=== PATIENT | male | born 1960 | race Hispanic/Latino ===

== ENCOUNTER 2016-12-08 11:19 | Inpatient (IN) | payer MEDICARE, MEDICAID, OTHER ==
[2016-12-08 11:20] VITALS: BMI 25.0
--- NOTE | 2016-12-08 12:48 | C.PDOC ---
History Of Present Illness 56-year-old homeless male, presents to the emergency department [facility], with complaints of being found wandering in park. Patient states "I don't know why they brought me in." Patient reports that he was standing in the park, minding his own business. Denies any pain or new symptoms. Patient states 'I feel fine. " Notes, he has been wearing ill-fitting shoes for a while and his feet are "messed up." No other complaints. Denies HI/SI. Time Seen by Provider: 12/08/16 11:32 Chief Complaint (Nursing): Substance Abuse History Per: Patient History/Exam Limitations: no limitations Modifying Factor(s): None Severity: None Past Medical History Reviewed: Historical Data, Nursing Documentation, Vital Signs Vital Signs: Last Vital Signs Temp 97.5 F L 12/08/16 18:04 Pulse 63 12/08/16 18:04 Resp 18 12/08/16 18:04 BP 144/86 12/08/16 18:04 Pulse Ox 100 12/08/16 18:04 - Medical History PMH: CVA Comment Only: HTN (pt denies) - [facility] Procedures OCCUPATIONAL THERAPY (05/07/14) PHYSICAL THERAPY NEC (05/07/14) Family History: States: No Known Family Hx - Social History Hx Alcohol Use: Yes Hx Substance Use: No - Immunization History Hx Tetanus Toxoid Vaccination: No Hx Influenza Vaccination: No Hx Pneumococcal Vaccination: No Review Of Systems Except As Marked, All Systems Reviewed And Found Negative. Constitutional: Negative for: Fever, Chills Cardiovascular: Negative for: Chest Pain Respiratory: Negative for: Shortness of Breath Gastrointestinal: Negative for: Nausea, Vomiting Psych: Negative for: Anxiety, Depression, Suicidal ideation Physical Exam - Physical Exam Appears: Non-toxic, No Acute Distress, Other (Calm and cooperative. Not intoxicated) Skin: Warm, Dry, No Rash Head: Atraumatic, Normacephalic Eye(s): bilateral: Normal Inspection, PERRL Nose: Normal Oral Mucosa: Moist Neck: Normal ROM Cardiovascular: No Murmur Extremity: Pedal Edema (Non-pitting B/L feet with extensive sloffing of skin. No erythema noted), No Deformity, Swelling ED Course And Treatment - Laboratory Results Result Diagrams: 12/08/16 13:14 12/08/16 13:14 ECG: Interpreted By Me, Viewed By Me ECG Rhythm: Sinus Tachycardia, PVC ECG Interpretation: No Acute Changes Rate From EC O2 Sat by Pulse Oximetry: 98 Pulse Ox Interpretation: Normal - Radiology CXR: Interpreted by Me CXR Interpretation: Yes: No Acute Disease, Other (SCATTERED PROBABLY CALCIFIED GR[place]AS ) Progress - Re-Evaluation Re-evaluation Note: 12/08/16 13:42 PERSIST HYPERTENSION. EXAM UNCH 12/08/16 15:06 PERSIST HYPERTENSION SP MEDS X 3. WILL ADMIT 12/08/16 15:24 d/w dr tenorio will admit - Data Reviewed Data Reviewed: Lab, Diagnostic imaging, EKG, Old records Disposition Counseled Patient/Family Regarding: Studies Performed, Diagnosis - Disposition Disposition: HOSPITALIZED Disposition Time: 15:07 Condition: STABLE - POA Present On Arrival: None - Clinical Impression Clinical Impression: HTN (hypertension), Hypokalemia, Homeless - Scribe Statement The provider has reviewed the documentation as recorded by the Scribe (Severo Eastman) All medical record entries made by the Scribe were at my direction and personally dictated by me. I have reviewed the chart and agree that the record accurately reflects my personal performance of the history, physical exam, medical decision making, and the department course for this patient. I have also personally directed, reviewed, and agree with the discharge instructions and disposition. Decision To Admit - Pt Status Changed To: Hospital Disposition Of: Observation - . Bed Request Type: Telemetry Admitting Physician: Joselito Tenorio Patient Diagnosis: HTN (hypertension), Hypokalemia, Homeless
[2016-12-08] MEDS ORDERED: Labetalol 25mg/5ml Syringe IVP STA ×2 (13:02→16:30)
[2016-12-08 13:17] LABS: BASO % 0.5 % (0.0-2.0); EOS # 0.1 K/uL (0.0-0.7); EOS % 3.4 % (0.0-4.0); LYMPH # 0.9 K/uL (1.0-4.3); LYMPH % 24.1 % (20.0-40.0); MEAN CORPUSCULAR HEMOGLOBIN 29.4 pg (27.0-31.0); MEAN CORPUSCULAR HGB CONC 33.4 g/dL (33.0-37.0); MEAN PLATELET VOLUME 8.4 fL (7.2-11.7); MONO # 0.6 K/uL (0.0-0.8); MONO % 16.8 % (0.0-10.0); NEUT # 2.1 K/uL (1.8-7.0); NEUT % 55.2 % (50.0-75.0); NRBC % 0.2 % (0.0-2.0); RBC 4.25 Mil/uL (4.40-5.90); WHITE BLOOD COUNT 3.9 K/uL (4.8-10.8)
[2016-12-08 13:19] LABS: HEMOGLOBIN 12.5 g/dL (12.0-18.0); MEAN CELL VOLUME 87.9 fL (80.0-94.0)
[2016-12-08] MEDS ORDERED: Labetalol 25mg/5ml Syringe ONE ×2 (13:23→16:33)
[2016-12-08 13:27] LABS: BLOOD UREA NITROGEN 21 mg/dL (9-20); GFR AFRICAN-AMERICAN > 60; GFR NON-AFRICAN AMERICAN > 60
[2016-12-08 13:28] LABS: CALCIUM 8.5 mg/dl (8.6-10.4)
[2016-12-08] MEDS ORDERED: Potassium Chloride 20 mEq/15 ml LIQ UD PO STA (13:41)
--- NOTE | 2016-12-08 14:11 | RAD ---
HISTORY: HTN COMPARISON: None available. TECHNIQUE: Chest, one view. FINDINGS: LUNGS: No focal consolidation. Scattered probable calcified granulomas. Please note that chest x-ray has limited sensitivity for the detection of pulmonary masses. PLEURA: No significant pleural effusion identified. No definite pneumothorax . CARDIOVASCULAR: The cardiomediastinal silhouette appears within normal limits of size. OSSEOUS STRUCTURES: No acute osseous abnormality identified. VISUALIZED UPPER ABDOMEN: Unremarkable. OTHER FINDINGS: None. IMPRESSION: No focal consolidation, significant pleural effusion, or definite pneumothorax identified. Scattered probable calcified granulomas.
[2016-12-08] MEDS ORDERED: Potassium Chloride 20 mEq/15 ml LIQ UD ONE (14:35)
--- NOTE | 2016-12-08 16:46 | CP.PCM.HP ---
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 Patient states " I don't know why they brought me in." Patient reports that he was standing on the corner and he was picked up and brought to the ED. Patient admits that he is homeless and lives on the streets. Denies living in a fci. Per patient he does not see a PMD and does not take any medications. Patient states that he is able to ambulate without assistance and admits that he walks around without shoes. Patient has no acute complaints today and denies all ROS. In the ED the patient was found to have elevated BP and hypokalemia. PMD: none PMHx: denies, however per previous hospital records pt has hx of CVA Meds: none Surgical Hx: denies Family Hx: reviewed and non-contributory Social Hx: Homeless, denies EtOH use, smokes tobacco 1/2 ppd for 40 years, denies illicit drug use Allergies: no known drug allergies Present on Admission - Present on Admission Any Indicators Present on Admission: No Review of Systems - Constitutional Constitutional: As Per HPI. absent: Chills, Headache - EENT Eyes: As Per HPI. absent: Blurred Vision, Change in Vision Ears: As Per HPI. absent: Dizziness Nose/Mouth/Throat: As Per HPI. absent: Sore Throat - Cardiovascular Cardiovascular: As Per HPI. absent: Chest Pain, Dyspnea, Edema, Leg Edema, Palpitations, Pedal Edema - Respiratory Respiratory: As Per HPI. absent: Cough, Dyspnea, Chest Congestion - Gastrointestinal Gastrointestinal: As Per HPI. absent: Abdominal Pain, Constipation, Diarrhea, Dysphagia, Heartburn, Nausea, Vomiting - Genitourinary Genitourinary: As Per HPI. absent: Change in Urinary Stream, Difficulty Urinating - Musculoskeletal Musculoskeletal: As Per HPI. absent: Back Pain, Muscle Weakness, Numbness, Tingling - Integumentary Integumentary: As Per HPI. absent: New Lesions, Rash - Neurological Neurological: As Per HPI. absent: Convulsions, Dizziness, Numbness, Headaches, Paresthesias - Psychiatric Psychiatric: As Per HPI. absent: Anxiety, Depression, Hopelessness - Endocrine Endocrine: As Per HPI. absent: Change in Body Appearance Past Patient History - Infectious Disease Hx of Infectious Diseases: None - Tetanus Immunizations Tetanus Immunization: Unknown - Past Medical History & Family History Past Medical History?: Yes - Past Social History Smoking Status: Light Smoker < 10 Cigarettes Daily - CARDIAC Hx Hypertension: (pt denies) - PULMONARY Hx Chronic Obstructive Pulmonary Disease (COPD): No - NEUROLOGICAL HX Cerebrovascular Accident: No - HEENT Hx HEENT Problems: No - RENAL Hx Chronic Kidney Disease: No - ENDOCRINE/METABOLIC Hx Hypothyroidism: No - HEMATOLOGICAL/ONCOLOGICAL Hx Blood Disorders: No - INTEGUMENTARY Hx Dermatological Problems: No - MUSCULOSKELETAL/RHEUMATOLOGICAL Hx Arthritis: No Hx Rheumatoid Arthritis: No - GASTROINTESTINAL Hx Gastrointestinal Disorders: No - GENITOURINARY/GYNECOLOGICAL Hx Genitourinary Disorders: No - PSYCHIATRIC Hx Substance Use: No - SURGICAL HISTORY Hx Surgeries: No - ANESTHESIA Hx Anesthesia: No Meds Allergies/Adverse Reactions: Allergies Allergy/AdvReac Type Severity Reaction Status Date / Time No Known Allergies Allergy Verified 12/08/16 11:28 Physical Exam - Constitutional Appears: Non-toxic, No Acute Distress, Unkempt - Head Exam Head Exam: ATRAUMATIC, NORMOCEPHALIC - Eye Exam Eye Exam: EOMI, Normal appearance, PERRL Pupil Exam: NORMAL ACCOMODATION - ENT Exam ENT Exam: Mucous Membranes Moist Additional comments: poor dentition - Neck Exam Neck exam: Positive for: Normal Inspection - Respiratory Exam Respiratory Exam: NORMAL BREATHING PATTERN. absent: Chest Wall Tenderness, Rhonchi, Wheezes, Respiratory Distress - Cardiovascular Exam Cardiovascular Exam: REGULAR RHYTHM, +S1, +S2. absent: Tachycardia, Irregular Rhythm - GI/Abdominal Exam GI & Abdominal Exam: Normal Bowel Sounds, Soft. absent: Distended, Firm, Guarding, Tenderness - Extremities Exam Extremities exam: Positive for: full ROM, pedal edema (bilateral 1+ pedal edema ), tenderness, pedal pulses present. Negative for: joint swelling - Back Exam Back exam: NORMAL INSPECTION - Neurological Exam Neurological exam: Alert, CN II-XII Intact, Normal Gait, Oriented x3 Additional comments: motor strength 5/5 bilateral UE motor strength 4/5 bilateral LE - Psychiatric Exam Psychiatric exam: Normal Affect, Normal Mood - Skin Skin Exam: Dry, Intact, Normal Color, Warm Results - Vital Signs Recent Vital Signs: Last Vital Signs Temp 97.8 F 12/08/16 16:09 Pulse 70 12/08/16 16:31 Resp 21 12/08/16 16:31 BP 172/109 H 12/08/16 16:31 Pulse Ox 99 12/08/16 16:31 - Labs Result Diagrams: 12/08/16 13:14 12/08/16 13:14 Assessment & Plan - Assessment and Plan (Free Text) Assessment: 1. Uncontrolled HTN f/u ECHO ASA 81mg PO daily Lasix 40mg IV BID Lisinopril 20mg PO daily Hydralazine 10mg IV q6h prn SBP>160 Crestor 5mg PO HS Given Labetolol in ED f/u TSH 2. Hypokalemia K+ 2.7 in ED Given Kdur 100mEq PO total KCl 20mEq IV x2 bags f/u CMP, mag and phos in AM 3. Tobacco use disorder Nicoderm patch TD Smoking cessation counseling 4. Lower extremity edema CXR- no effusion noted f/u BNP f/u ECHO Lasix 40mg IV BID Podiatry consulted for foot care- help appreciated 5. Prophylactic measures Heparin 5000u SC q8h Pepcid 20mg PO BID PT/OT eval social and human services assistant eval for homelessness <Joselito Tenorio - Last Filed: 12/09/16 09:23> Results - Vital Signs Recent Vital Signs: Last Vital Signs Temp 98.2 F 12/09/16 08:37 Pulse 100 H 12/09/16 08:37 Resp 20 12/09/16 08:37 BP 145/79 12/09/16 08:37 Pulse Ox 96 12/09/16 08:37 - Labs Result Diagrams: 12/09/16 08:32 12/08/16 13:14 Labs: Laboratory Results - last 24 hr 12/08/16 12/09/16 20:06 08:32 WBC 4.9 RBC 4.62 Hgb 13.7 Hct 40.6 MCV 87.8 MCH 29.5 MCHC 33.7 RDW 14.3 Plt Count 142 MPV 8.3 Neut % (Auto) 65.8 Lymph % (Auto) 24.4 [place] % (Auto) 7.6 Eos % (Auto) 1.6 Baso % (Auto) 0.6 Neut # 3.2 Lymph # 1.2 [place] # 0.4 Eos # 0.1 Baso # 0.0 NT-Pro-B Natriuret Pep 1890 H Attending/Attestation - Attestation I have personally seen and examined this patient.: Yes I have fully participated in the care of the patient.: Yes I have reviewed all pertinent clinical information: Yes Notes (Text): 12/09/16 09:23 Patient seen and examined at bedside with the resident Started the patient on antihypertensive medication We will replace potassium and check the level again I discussed the plan of care with the resident and agree with the assessment and plan by the resident.
[2016-12-08] MEDS ORDERED: Potassium Chloride 20 mEq ER Tab PO ONE (20:00)
[2016-12-09 08:37] LABS: BASO % 0.6 % (0.0-2.0); EOS # 0.1 K/uL (0.0-0.7); EOS % 1.6 % (0.0-4.0); HEMOGLOBIN 13.7 g/dL (12.0-18.0); LYMPH # 1.2 K/uL (1.0-4.3); LYMPH % 24.4 % (20.0-40.0); MEAN CELL VOLUME 87.8 fL (80.0-94.0); MEAN CORPUSCULAR HEMOGLOBIN 29.5 pg (27.0-31.0); MEAN CORPUSCULAR HGB CONC 33.7 g/dL (33.0-37.0); MEAN PLATELET VOLUME 8.3 fL (7.2-11.7); MONO # 0.4 K/uL (0.0-0.8); MONO % 7.6 % (0.0-10.0); NEUT # 3.2 K/uL (1.8-7.0); NEUT % 65.8 % (50.0-75.0); RBC 4.62 Mil/uL (4.40-5.90); RED CELL DISTRIBUTION WIDTH 14.3 % (11.5-14.5); WHITE BLOOD COUNT 4.9 K/uL (4.8-10.8)
[2016-12-09 09:19] LABS: ALBUMIN 2.9 g/dL (3.5-5.0)
[2016-12-09 09:22] LABS: AST/SGOT 30 U/L (17-59); BLOOD UREA NITROGEN 17 mg/dL (9-20); GFR AFRICAN-AMERICAN > 60; GFR NON-AFRICAN AMERICAN > 60
[2016-12-09 09:23] LABS: ALT/SGPT 26 U/L (21-72); CALCIUM 8.4 mg/dl (8.6-10.4); MAGNESIUM 1.6 mg/dL (1.6-2.3)
[2016-12-09 09:25] LABS: ALB/GLOB RATIO 0.9 (1.0-2.1)
[2016-12-09] MEDS ORDERED: Potassium Chloride 20 mEq ER Tab PO ONE ×3 (11:36→15:30)
--- NOTE | 2016-12-09 16:43 | CARD ---
APPROVED REPORT EXAM: Two-dimensional and M-mode echocardiogram with Doppler and color Doppler. Other Information Quality : GoodRhythm : NSR INDICATION CVA/TIA TOBACO ABUSE RISK FACTORS Hypertension M-Mode DIMENSIONS RVDd1.67 (2.1-3.2cm)Left Atrium (MM)3.90 (2.5-4.0cm) IVSd0.97 (0.7-1.1cm)Aortic Root3.87 (2.2-3.7cm) LVDd5.48 (4.0-5.6cm)Aortic Cusp Exc.1.95 (1.5-2.0cm) PWd1.01 (0.7-1.1cm)FS (%) 28 % LVDs3.92 (2.0-3.8cm)LVEF (%)50 (>50%) Mitral Valve MV E Hnlspdsf48.3cm/sMV A Tfmfzcvo09.7cm/sE/A ratio0.8 TDI E/Lateral E'0.0E/Medial E'0.0 Tricuspid Valve TR Peak Qlzlzkao137ct/sTR Peak [id number] LEFT VENTRICLE The left ventricle is normal size. There is normal left ventricular wall thickness. Left ventricle is borderline. Septal hypokinesis Transmitral Doppler flow pattern is Grade I-abnormal relaxation pattern. RIGHT VENTRICLE The right ventricle is normal size. There is normal right ventricular wall thickness. The right ventricular systolic function is normal. ATRIA The left atrium size is normal. The right atrium size is normal. AORTIC VALVE The aortic valve is moderately thickened. No aortic regurgitation is present. MITRAL VALVE The mitral valve is mildly thickened. GREAT VESSELS The aortic root is normal in size. The IVC is normal in size and collapses >50% with inspiration. PERICARDIAL EFFUSION There is a small loculated anterior pericardial effusion. <Conclusion> The left ventricle is normal size. There is normal left ventricular wall thickness. Left ventricle is borderline. Septal hypokinesis Transmitral Doppler flow pattern is Grade I-abnormal relaxation pattern.
--- NOTE | 2016-12-09 17:16 | CARD ---
APPROVED REPORT EKG Measurement Heart [id number] <Conclusion> Sinus tachycardia with frequent premature ventricular complexes Nonspecific ST abnormality Abnormal ECG
--- NOTE | 2016-12-09 18:13 | CP.PCM.PN ---
<Umair Powell E - Last Filed: 12/09/16 23:06> Subjective - Date & Time of Evaluation Date of Evaluation: 12/09/16 Time of Evaluation: 01:20 - Subjective Subjective: Medicine Note (PGY 1) : Dr. Tenorio's service Patient was seen and examined at bedside. Patient was resting comfortably in his bed. Patient reports that is he is doing well. Patient denies headache, blurry vision, nausea, vomiting, chest pain, SOB, palpitations or abdominal pain. Objective - Vital Signs/Intake and Output Vital Signs (last 24 hours): Temp Pulse Resp BP Pulse Ox 98 F 66 20 151/83 H 98 12/09/16 17:51 12/09/16 17:51 12/09/16 17:51 12/09/16 17:51 12/09/16 17:51 Intake and Output: 12/09/16 12/09/16 06:59 18:59 Intake Total 450 250 Output Total 2800 Balance -2350 250 - Medications Medications: Current Medications Aspirin (Aspirin Chewable) 81 mg PO DAILY [facility] Last Admin: 12/09/16 11:23 Dose: 81 mg Famotidine (Pepcid) 20 mg PO BID [facility] Last Admin: 12/09/16 11:23 Dose: 20 mg Furosemide (Lasix) 40 mg IVP BID [facility] Last Admin: 12/09/16 11:27 Dose: 40 mg Heparin Sodium (Porcine) (Heparin) 5,000 units SC Q8 [facility] Last Admin: 12/09/16 13:37 Dose: 5,000 units Hydralazine HCl (Apresoline) 10 mg IVP Q6H PRN PRN Reason: Systolic Blood Pressure Lisinopril (Zestril) 20 mg PO DAILY [facility] Last Admin: 12/09/16 11:23 Dose: 20 mg Nicotine (Nicoderm Cq) 1 patch TD DAILY [facility] Last Admin: 12/09/16 11:26 Dose: 1 patch Rosuvastatin Calcium (Crestor) 5 mg PO HS [facility] Last Admin: 12/08/16 22:10 Dose: 5 mg - Labs Labs: 12/09/16 08:32 12/09/16 08:32 - Constitutional Appears: Well, No Acute Distress - Head Exam Head Exam: NORMAL INSPECTION, NORMOCEPHALIC - Eye Exam Eye Exam: EOMI, Normal appearance - ENT Exam ENT Exam: Mucous Membranes Moist, Normal Exam - Respiratory Exam Respiratory Exam: Clear to Ausculation Bilateral, NORMAL BREATHING PATTERN - Cardiovascular Exam Cardiovascular Exam: REGULAR RHYTHM, +S1, +S2 - GI/Abdominal Exam GI & Abdominal Exam: Soft, Normal Bowel Sounds - Extremities Exam Extremities Exam: Normal Capillary Refill, Pedal Edema - Neurological Exam Neurological Exam: Alert, Awake, Oriented x3 - Psychiatric Exam Psychiatric exam: Normal Affect, Normal Mood - Skin Skin Exam: Dry, Normal Color, Warm Assessment and Plan (1) Uncontrolled hypertension Assessment & Plan: On admission, BP 208/79 Echo : EF> 50% TSH : 1.11 ASA 81mg PO daily Lasix 40mg IV BID Lisinopril 20mg PO daily Hydralazine 10mg IV q6h prn SBP>160 Crestor 5mg PO HS Status: Acute (2) Hypokalemia Assessment & Plan: K+ 2.7 in ED---> 3.0 (12/09/16 M.6. 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 eval for homelessness Status: Acute <Joselito Tenorio M - Last Filed: 12/10/16 17:33> Objective - Vital Signs/Intake and Output Vital Signs (last 24 hours): Temp Pulse Resp BP Pulse Ox 97.5 F L 72 18 145/101 H 97 12/10/16 16:00 12/10/16 16:00 12/10/16 16:00 12/10/16 16:00 12/10/16 16:00 Intake and Output: 12/10/16 12/10/16 06:59 18:59 Intake Total 250 Output Total 300 300 Balance -300 -50 - Medications Medications: Current Medications Amlodipine Besylate (Norvasc) 10 mg PO DAILY [facility] Last Admin: 12/10/16 13:17 Dose: 10 mg Aspirin (Aspirin Chewable) 81 mg PO DAILY [facility] Last Admin: 12/10/16 09:46 Dose: 81 mg Famotidine (Pepcid) 20 mg PO BID [facility] Last Admin: 12/10/16 09:46 Dose: 20 mg Furosemide (Lasix) 40 mg IVP BID [facility] Last Admin: 12/10/16 09:44 Dose: 40 mg Heparin Sodium (Porcine) (Heparin) 5,000 units SC Q8 [facility] Last Admin: 12/10/16 13:17 Dose: 5,000 units Hydralazine HCl (Apresoline) 10 mg IVP Q6H PRN PRN Reason: Systolic Blood Pressure Lisinopril (Zestril) 20 mg PO DAILY [facility] Last Admin: 12/10/16 09:47 Dose: 20 mg Nicotine (Nicoderm Cq) 1 patch TD DAILY [facility] Last Admin: 12/10/16 09:51 Dose: 1 patch Rosuvastatin Calcium (Crestor) 5 mg PO HS [facility] Last Admin: 12/09/16 22:59 Dose: 5 mg - Labs Labs: 12/10/16 07:53 12/10/16 07:53 Attending/Attestation - Attestation I have personally seen and examined this patient.: Yes I have fully participated in the care of the patient.: Yes I have reviewed all pertinent clinical information, including history, physical exam and plan: Yes Notes (Text): 12/10/16 17:31 Patient was seen and examined at bedside with the resident Continue blood pressure medication and continue to monitor. Bilateral lower extremity edema has improved. Discussed the plan of care with the resident and agree with the assessment and plan.
[2016-12-10 08:05] LABS: BASO % 0.3 % (0.0-2.0); EOS # 0.1 K/uL (0.0-0.7); EOS % 2.4 % (0.0-4.0); HEMOGLOBIN 14.3 g/dL (12.0-18.0); LYMPH # 0.9 K/uL (1.0-4.3); LYMPH % 23.6 % (20.0-40.0); MEAN CELL VOLUME 88.4 fL (80.0-94.0); MEAN CORPUSCULAR HEMOGLOBIN 29.2 pg (27.0-31.0); MEAN PLATELET VOLUME 8.3 fL (7.2-11.7); MONO # 0.3 K/uL (0.0-0.8); MONO % 8.2 % (0.0-10.0); NEUT # 2.5 K/uL (1.8-7.0); NEUT % 65.5 % (50.0-75.0); RBC 4.91 Mil/uL (4.40-5.90); RED CELL DISTRIBUTION WIDTH 14.3 % (11.5-14.5); WHITE BLOOD COUNT 3.9 K/uL (4.8-10.8)
--- NOTE | 2016-12-10 08:09 | CP.PCM.PN ---
<Bartolo Brown - Last Filed: 12/10/16 16:07> Subjective - Date & Time of Evaluation Date of Evaluation: 12/10/16 Time of Evaluation: 09:00 - Subjective Subjective: Medicine Note- Hospitalist Service Patient was seen and examined at bedside. Patient reports no acute complaints at this time. Tolerating PO intake, moving bowels normall. No events overnight, per nursing. Objective - Vital Signs/Intake and Output Vital Signs (last 24 hours): Temp Pulse Resp BP Pulse Ox 98 F 69 20 142/73 97 12/09/16 23:45 12/09/16 23:45 12/09/16 23:45 12/09/16 23:45 12/09/16 23:45 Intake and Output: 12/10/16 12/10/16 06:59 18:59 Output Total 300 Balance -300 - Medications Medications: Current Medications Aspirin (Aspirin Chewable) 81 mg PO DAILY [facility] Last Admin: 12/09/16 11:23 Dose: 81 mg Famotidine (Pepcid) 20 mg PO BID [facility] Last Admin: 12/09/16 11:23 Dose: 20 mg Furosemide (Lasix) 40 mg IVP BID [facility] Last Admin: 12/09/16 23:00 Dose: 40 mg Heparin Sodium (Porcine) (Heparin) 5,000 units SC Q8 [facility] Last Admin: 12/09/16 23:00 Dose: 5,000 units Hydralazine HCl (Apresoline) 10 mg IVP Q6H PRN PRN Reason: Systolic Blood Pressure Lisinopril (Zestril) 20 mg PO DAILY [facility] Last Admin: 12/09/16 11:23 Dose: 20 mg Nicotine (Nicoderm Cq) 1 patch TD DAILY [facility] Last Admin: 12/09/16 11:26 Dose: 1 patch Rosuvastatin Calcium (Crestor) 5 mg PO HS [facility] Last Admin: 12/09/16 22:59 Dose: 5 mg - Labs Labs: 12/09/16 08:32 12/09/16 08:32 - Constitutional Appears: Non-toxic, No Acute Distress, Unkempt - Head Exam Head Exam: ATRAUMATIC, NORMAL INSPECTION, NORMOCEPHALIC - Eye Exam Pupil Exam: NORMAL ACCOMODATION, PERRL - ENT Exam ENT Exam: Mucous Membranes Moist - Neck Exam Neck Exam: Normal Inspection - Respiratory Exam Respiratory Exam: Clear to Ausculation Bilateral, NORMAL BREATHING PATTERN. absent: Prolonged Expiratory Phase, Rales, Rhonchi, Wheezes - Cardiovascular Exam Cardiovascular Exam: REGULAR RHYTHM, +S1, +S2 - GI/Abdominal Exam GI & Abdominal Exam: Soft, Normal Bowel Sounds. absent: Tenderness, Diminished Bowel Sounds, Hernia, Hyperactive Bowel Sounds, Hypoactive Bowel Sounds - Extremities Exam Extremities Exam: Normal Capillary Refill - Neurological Exam Neurological Exam: Alert, Awake, Oriented x3 - Psychiatric Exam Psychiatric exam: Normal Affect, Normal Mood - Skin Skin Exam: Dry, Intact, Normal Color, Warm Assessment and Plan - Assessment and Plan (Free Text) Assessment: (1) Uncontrolled hypertension Assessment & Plan: On admission, BP 208/79 Echo : EF> 50% TSH : 1.11 ASA 81mg PO daily Lasix 40mg IV BID Lisinopril 20mg PO daily Hydralazine 10mg IV q6h prn SBP>160 Started on Norvasc 10mg PO Daily Crestor 5mg PO HS Status: Acute (2) Hypokalemia Assessment & Plan: K+ 3.8 today. Resolved. WIll continue to monitor M.8 Phosphorus: 3.0 Monitor Status: Acute (3) Lower extremity edema Assessment & Plan: CXR- no effusion noted BNP : 1890 ECHO: EF> 50% Lasix 40mg IV BID Podiatry consulted for foot care- help appreciated Status: Acute (4) Tobacco use disorder Assessment & Plan: Nicoderm patch TD Smoking cessation counseling Status: Acute (5) Prophylactic measure Assessment & Plan: Heparin 5000u SC q8h Pepcid 20mg PO BID PT/OT eval social problems specialist eval for homelessness Status: Acute <Joselito Tenorio M - Last Filed: 12/10/16 18:19> Objective - Vital Signs/Intake and Output Vital Signs (last 24 hours): Temp Pulse Resp BP Pulse Ox 97.5 F L 72 18 145/101 H 97 12/10/16 16:00 12/10/16 16:00 12/10/16 16:00 12/10/16 17:49 12/10/16 16:00 - Medications Medications: Current Medications Amlodipine Besylate (Norvasc) 10 mg PO DAILY [facility] Last Admin: 12/10/16 13:17 Dose: 10 mg Aspirin (Aspirin Chewable) 81 mg PO DAILY [facility] Last Admin: 12/10/16 09:46 Dose: 81 mg Famotidine (Pepcid) 20 mg PO BID [facility] Last Admin: 12/10/16 17:49 Dose: 20 mg Furosemide (Lasix) 40 mg IVP BID [facility] Last Admin: 12/10/16 17:49 Dose: 40 mg Heparin Sodium (Porcine) (Heparin) 5,000 units SC Q8 [facility] Last Admin: 12/10/16 13:17 Dose: 5,000 units Hydralazine HCl (Apresoline) 10 mg IVP Q6H PRN PRN Reason: Systolic Blood Pressure Lisinopril (Zestril) 20 mg PO DAILY [facility] Last Admin: 12/10/16 09:47 Dose: 20 mg Nicotine (Nicoderm Cq) 1 patch TD DAILY [facility] Last Admin: 12/10/16 09:51 Dose: 1 patch Rosuvastatin Calcium (Crestor) 5 mg PO HS [facility] Last Admin: 12/09/16 22:59 Dose: 5 mg Attending/Attestation - Attestation I have personally seen and examined this patient.: Yes I have fully participated in the care of the patient.: Yes I have reviewed all pertinent clinical information, including history, physical exam and plan: Yes Notes (Text): 12/10/16 18:19 Patient seen and examined at bedside Patient's blood pressures dilated weighted We will titrate the medication for better control Discharge planning likely in the morning if the patient is medically stable Discussed the plan of care with the resident agree with the assessment and plan.
[2016-12-10 08:23] LABS: ALBUMIN 3.1 g/dL (3.5-5.0)
[2016-12-10 08:25] LABS: GFR AFRICAN-AMERICAN > 60; GFR NON-AFRICAN AMERICAN > 60
[2016-12-10 08:26] LABS: ALB/GLOB RATIO 0.9 (1.0-2.1); ALT/SGPT 31 U/L (21-72); AST/SGOT 33 U/L (17-59); BLOOD UREA NITROGEN 20 mg/dL (9-20); CALCIUM 8.7 mg/dl (8.6-10.4)
[2016-12-10 08:27] LABS: MAGNESIUM 1.8 mg/dL (1.6-2.3)
[2016-12-10] MEDS ORDERED: Potassium Chloride 20 mEq ER Tab PO ONE (13:00)
[2016-12-11 01:55] VITALS: RESP 20
[2016-12-11 08:31] LABS: BASO % 0.3 % (0.0-2.0); EOS # 0.1 K/uL (0.0-0.7); EOS % 3.4 % (0.0-4.0); HEMOGLOBIN 15.1 g/dL (12.0-18.0); LYMPH # 1.1 K/uL (1.0-4.3); LYMPH % 28.4 % (20.0-40.0); MEAN CELL VOLUME 88.4 fL (80.0-94.0); MEAN CORPUSCULAR HEMOGLOBIN 29.6 pg (27.0-31.0); MEAN CORPUSCULAR HGB CONC 33.5 g/dL (33.0-37.0); MEAN PLATELET VOLUME 8.8 fL (7.2-11.7); MONO # 0.5 K/uL (0.0-0.8); MONO % 12.6 % (0.0-10.0); NEUT # 2.1 K/uL (1.8-7.0); NEUT % 55.3 % (50.0-75.0); NRBC % 0.6 % (0.0-2.0); RBC 5.11 Mil/uL (4.40-5.90); RED CELL DISTRIBUTION WIDTH 13.9 % (11.5-14.5); WHITE BLOOD COUNT 3.8 K/uL (4.8-10.8)
[2016-12-11 08:47] LABS: ALBUMIN 3.4 g/dL (3.5-5.0)
[2016-12-11 08:49] LABS: AST/SGOT 42 U/L (17-59); GFR AFRICAN-AMERICAN > 60; GFR NON-AFRICAN AMERICAN > 60
[2016-12-11 08:50] LABS: ALB/GLOB RATIO 0.9 (1.0-2.1); ALT/SGPT 44 U/L (21-72); BLOOD UREA NITROGEN 27 mg/dL (9-20); CALCIUM 8.3 mg/dl (8.6-10.4)
[2016-12-11 08:51] LABS: MAGNESIUM 1.9 mg/dL (1.6-2.3)
--- NOTE | 2016-12-11 17:24 | CP.PCM.PN ---
<Bartolo Brown - Last Filed: 12/11/16 17:21> Subjective - Date & Time of Evaluation Date of Evaluation: 12/11/16 Time of Evaluation: 08:50 - Subjective Subjective: Medicine note- Hospitalist service Patient was seen and examined at bedside. Patient reports no acute complaints at this time. He states he slept well, has been eating and having normal bowel movements. No events overnight, per nursing. Objective - Vital Signs/Intake and Output Vital Signs (last 24 hours): Temp Pulse Resp BP Pulse Ox 97.7 F 73 20 130/97 H 96 12/11/16 16:00 12/11/16 16:00 12/11/16 16:00 12/11/16 16:00 12/11/16 16:00 Intake and Output: 12/11/16 12/11/16 06:59 18:59 Intake Total 300 350 Output Total 2450 900 Balance -2150 -550 - Medications Medications: Current Medications Amlodipine Besylate (Norvasc) 10 mg PO DAILY [facility] Last Admin: 12/11/16 09:42 Dose: 10 mg Aspirin (Aspirin Chewable) 81 mg PO DAILY [facility] Last Admin: 12/11/16 09:41 Dose: 81 mg Famotidine (Pepcid) 20 mg PO BID [facility] Last Admin: 12/11/16 09:42 Dose: 20 mg Furosemide (Lasix) 40 mg IVP BID [facility] Last Admin: 12/11/16 09:41 Dose: 40 mg Heparin Sodium (Porcine) (Heparin) 5,000 units SC Q8 [facility] Last Admin: 12/11/16 13:26 Dose: 5,000 units Hydralazine HCl (Apresoline) 10 mg IVP Q6H PRN PRN Reason: Systolic Blood Pressure Lisinopril (Zestril) 40 mg PO DAILY [facility] Last Admin: 12/11/16 09:41 Dose: 40 mg Nicotine (Nicoderm Cq) 1 patch TD DAILY [facility] Last Admin: 12/11/16 09:41 Dose: 1 patch Rosuvastatin Calcium (Crestor) 5 mg PO HS [facility] Last Admin: 12/10/16 21:08 Dose: 5 mg - Labs Labs: 12/11/16 08:05 12/11/16 08:05 - Constitutional Appears: Non-toxic, No Acute Distress - Head Exam Head Exam: ATRAUMATIC, NORMAL INSPECTION, NORMOCEPHALIC - Eye Exam Pupil Exam: NORMAL ACCOMODATION, PERRL - ENT Exam ENT Exam: Mucous Membranes Moist - Respiratory Exam Respiratory Exam: Clear to Ausculation Bilateral, NORMAL BREATHING PATTERN. absent: Prolonged Expiratory Phase, Rales, Rhonchi, Wheezes - Cardiovascular Exam Cardiovascular Exam: REGULAR RHYTHM, +S1, +S2 - GI/Abdominal Exam GI & Abdominal Exam: Soft, Normal Bowel Sounds. absent: Tenderness, Diminished Bowel Sounds, Hernia, Hyperactive Bowel Sounds, Hypoactive Bowel Sounds - Extremities Exam Extremities Exam: Normal Capillary Refill, Normal Inspection - Neurological Exam Neurological Exam: Alert, Awake, Oriented x3 - Psychiatric Exam Psychiatric exam: Normal Affect, Normal Mood - Skin Skin Exam: Dry, Intact, Normal Color, Warm Assessment and Plan - Assessment and Plan (Free Text) Assessment: (1) Uncontrolled hypertension Assessment & Plan: On admission, BP 208/79 Echo : EF> 50% TSH : 1.11 ASA 81mg PO daily Lasix 40mg IV BID Increased Lisinopril to 40mg PO daily Hydralazine 10mg IV q6h prn SBP>160 ContinueNorvasc 10mg PO Daily Crestor 5mg PO HS Status: Acute (2) Hypokalemia Assessment & Plan: K+ 3.8 today. Resolved. WIll continue to monitor M.8 Phosphorus: 3.0 Monitor Status: Acute (3) Lower extremity edema Assessment & Plan: CXR- no effusion noted BNP : 1890 ECHO: EF> 50% Lasix 40mg IV BID Podiatry consulted for foot care- help appreciated Status: Acute (4) Tobacco use disorder Assessment & Plan: Nicoderm patch TD Smoking cessation counseling Status: Acute (5) Prophylactic measure Assessment & Plan: Heparin 5000u SC q8h Pepcid 20mg PO BID PT/OT eval social services manager eval for homelessness. patient states if he were discharged, he would stay with his brother in law. Disposition: once BP has improved, will discharge home, to followup BP outpatient. <Joselito Tenorio - Last Filed: 12/19/16 15:49> Objective - Vital Signs/Intake and Output Vital Signs (last 24 hours): Temp Pulse Resp BP Pulse Ox 97.2 F L 56 L 20 147/90 98 12/12/16 15:58 12/12/16 15:58 12/12/16 15:58 07/10/17 15:58 12/12/16 15:58 - Labs Labs: 12/11/16 08:05 12/11/16 08:05 Attending/Attestation - Attestation I have personally seen and examined this patient.: Yes I have fully participated in the care of the patient.: Yes I have reviewed all pertinent clinical information, including history, physical exam and plan: Yes Notes (Text): 12/19/16 15:49 Patient was seen and examined at bedside with the resident I discussed the plan of care with the admitting resident Patient is being admitted to uncontrolled hypertension We'll start the patient on antihypertensive treatment I agree with the history and physical and assessment/plan by the medical attendant.
[2016-12-12 08:52] VITALS: TEMP 97.2
--- NOTE | 2016-12-12 13:42 | CP.PCM.DIS ---
Provider - Provider Date of Admission: 12/10/16 18:05 Attending physician: Joselito Tenorio MD Time Spent in preparation of Discharge (in minutes): 45 Diagnosis - Discharge Diagnosis (1) Uncontrolled hypertension Status: Acute (2) Hypokalemia Status: Acute (3) Lower extremity edema Status: Acute (4) Tobacco use disorder Status: Acute (5) Prophylactic measure Status: Acute Hospital Course - Lab Results Lab Results: Most Recent Lab Values WBC 3.8 K/uL (4.8-10.8) L 12/11/16 08:05 RBC 5.11 Mil/uL (4.40-5.90) 12/11/16 08:05 Hgb 15.1 g/dL (12.0-18.0) 12/11/16 08:05 Hct 45.2 % (35.0-51.0) 12/11/16 08:05 MCV 88.4 fL (80.0-94.0) 12/11/16 08:05 MCH 29.6 pg (27.0-31.0) 12/11/16 08:05 MCHC 33.5 g/dL (33.0-37.0) 12/11/16 08:05 RDW 13.9 % (11.5-14.5) 12/11/16 08:05 Plt Count 169 K/uL (130-400) 12/11/16 08:05 MPV 8.8 fL (7.2-11.7) 12/11/16 08:05 Neut % (Auto) 55.3 % (50.0-75.0) 12/11/16 08:05 Lymph % (Auto) 28.4 % (20.0-40.0) 12/11/16 08:05 Dawson % (Auto) 12.6 % (0.0-10.0) H 12/11/16 08:05 Eos % (Auto) 3.4 % (0.0-4.0) 12/11/16 08:05 Baso % (Auto) 0.3 % (0.0-2.0) 12/11/16 08:05 Neut # 2.1 K/uL (1.8-7.0) 12/11/16 08:05 Lymph # 1.1 K/uL (1.0-4.3) 12/11/16 08:05 Dawson # 0.5 K/uL (0.0-0.8) 12/11/16 08:05 Eos # 0.1 K/uL (0.0-0.7) 12/11/16 08:05 Baso # 0.0 K/uL (0.0-0.2) 12/11/16 08:05 Sodium 137 mmol/L (132-148) 12/11/16 08:05 Potassium 3.8 mmol/L (3.6-5.2) 12/11/16 08:05 Chloride 96 mmol/L (98-107) L 12/11/16 08:05 Carbon Dioxide 30 mmol/L (22-30) 12/11/16 08:05 Anion Gap 15 (10-20) 12/11/16 08:05 BUN 27 mg/dL (9-20) H 12/11/16 08:05 Creatinine 0.8 MG/DL (0.8-1.5) 12/11/16 08:05 Est GFR ( Amer) > 60 12/11/16 08:05 Est GFR (Non-Af Amer) > 60 12/11/16 08:05 POC Glucose (mg/dL) 87 mg/dL (65-110) 12/08/16 12:19 Random Glucose 89 mg/dL (75-110) 12/11/16 08:05 Calcium 8.3 mg/dl (8.6-10.4) L 12/11/16 08:05 Phosphorus 3.4 mg/dL (2.5-4.5) 12/11/16 08:05 Magnesium 1.9 mg/dL (1.6-2.3) 12/11/16 08:05 Total Bilirubin 1.3 mg/dL (0.2-1.3) 12/11/16 08:05 AST 42 U/L (17-59) 12/11/16 08:05 ALT 44 U/L (21-72) 12/11/16 08:05 Alkaline Phosphatase 88 U/L (38-126) 12/11/16 08:05 NT-Pro-B Natriuret Pep 1890 pg/mL (0-900) H 12/08/16 20:06 Total Protein 7.1 g/dL (6.3-8.3) 12/11/16 08:05 Albumin 3.4 g/dL (3.5-5.0) L 12/11/16 08:05 Globulin 3.7 gm/dL (2.2-3.9) 12/11/16 08:05 Albumin/Globulin Ratio 0.9 (1.0-2.1) L 12/11/16 08:05 TSH 3rd Generation 1.11 mIU/L (0.46-4.68) 12/09/16 08:32 - Hospital Course Hospital Course: As per admission: HPI: Patient is a 56 year old male with PMHx of CVA (Left MICROFILMER infarct) who presents to the ED by EMS after being found wandering in park. Patient states " I don't know why they brought me in." Patient reports that he was standing on the corner and he was picked up and brought to the ED. Patient admits that he is homeless and lives on the streets. Denies living in a residential. Per patient he does not see a PMD and does not take any medications. Patient states that he is able to ambulate without assistance and admits that he walks around without shoes. Patient has no acute complaints today and denies all ROS. In the ED the patient was found to have elevated BP and hypokalemia. Hospital Course: Patient was admitted with the consideration of uncontrolled hypertension and hypokalemia. Patient was then medically managed on hypertensive medications. Ceramic Tiler consult was also placed for patient's unkept feet, with recommendation of ammonium lactate cream to apply daily and instructed patient on importance of hygiene. Patient's blood pressure was well- controlled on medication regimen. Patient started to improve and he remained asymptomatic. Patient was then discharge upon clearance by care team with appropriate medications. Pertinent Study Result: Echocardiogram: The left ventricle is normal size and wall thickness. Septal hypokinesis. Ejection Fraction >50% Chest X-ray: No focal consolidation, significant pleural effusion, or definite pneumothorax identified. Scattered probable calcified granulomas This is a brief summary of events. For a complete course, refer to the medical record. Discharge Exam - Head Exam Head Exam: ATRAUMATIC, NORMAL INSPECTION, NORMOCEPHALIC - Eye Exam Eye Exam: EOMI, Normal appearance - ENT Exam ENT Exam: Mucous Membranes Moist, Normal Exam - Respiratory Exam Respiratory Exam: Clear to PA & Lateral, NORMAL BREATHING PATTERN - Cardiovascular Exam Cardiovascular Exam: REGULAR RHYTHM, +S1, +S2 - GI/Abdominal Exam GI & Abdominal Exam: Normal Bowel Sounds, Soft - Extremities Exam Extremities exam: normal inspection, pedal pulses present - Neurological Exam Neurological exam: Alert - Psychiatric Exam Psychiatric exam: Normal Affect, Normal Mood - Skin Skin Exam: Dry, Intact, Normal Color, Warm Discharge Plan - Discharge Medications Prescriptions: amLODIPine [Norvasc] 10 mg PO DAILY #30 tab Aspirin [Aspirin Chewable] 81 mg PO DAILY #30 Furosemide [Lasix] 20 mg PO DAILY #30 tablet Lisinopril [Zestril] 10 mg PO DAILY #30 tab Rosuvastatin Calcium [Crestor] 5 mg PO HS #30 tab - Follow Up Plan Condition: STABLE Disposition: HOME/ ROUTINE Instructions: Lisinopril (By mouth), Furosemide (By mouth), Aspirin (By mouth) , Amlodipine (By mouth), Rosuvastatin (By mouth), Heart Failure (DC), Heart Healthy Diet (DC), Hypertension (DC), Edema (GEN) Additional Instructions: Please discharge patient home Please start the following new medications as prescribed: 1. Lisinopril 10mg PO daily 2. Amlodipine 10mg PO daily 3. Furosemide 20mg PO daily 4. Aspirin 81mg PO daily 5. Crestor 5mg PO HS daily Please follow up with the [facility] within a week. Please return to the hospital if symptoms resume Referrals: [facility] [Outside]
--- NOTE | 2016-12-12 14:01 | CP.PCM.CON ---
History of Present Illness - History of Present Illness History of Present Illness: 56 year old male with PMHx of CVA (Left SANITATION LEAD infarct) seen at bedside for routine foot care after podiatry consultation. Patient states that he is homeless and was picked up by the police when he was wandering outdoors. Patient does not know why he is in the hospital. Patient denies any pain in his feet. He states that he wears his shoes for prolonged periods of time but occassionally takes them off at night. Patient denies any pedal complaints at this time. PMD: none PMHx: denies, however per previous hospital records pt has hx of CVA Meds: none Surgical Hx: denies Family Hx: reviewed and non-contributory Social Hx: Homeless, denies EtOH use, smokes tobacco 1/2 ppd for 40 years, denies illicit drug use Allergies: no known drug allergies Review of Systems - Constitutional Constitutional: As Per HPI Past Patient History - Infectious Disease Hx of Infectious Diseases: None - Tetanus Immunizations Tetanus Immunization: Unknown - Past Medical History & Family History Past Medical History?: Yes - Past Social History Smoking Status: Current Some Days Smoker - CARDIAC Hx Hypertension: (pt denies) - PULMONARY Hx Chronic Obstructive Pulmonary Disease (COPD): No - NEUROLOGICAL HX Cerebrovascular Accident: No - HEENT Hx HEENT Problems: No - RENAL Hx Chronic Kidney Disease: No - ENDOCRINE/METABOLIC Hx Hypothyroidism: No - HEMATOLOGICAL/ONCOLOGICAL Hx Blood Disorders: No - INTEGUMENTARY Hx Dermatological Problems: No - MUSCULOSKELETAL/RHEUMATOLOGICAL Hx Falls: No - GASTROINTESTINAL Hx Gastrointestinal Disorders: No - GENITOURINARY/GYNECOLOGICAL Hx Genitourinary Disorders: No - PSYCHIATRIC Hx Substance Use: No - SURGICAL HISTORY Hx Surgeries: No - ANESTHESIA Hx Anesthesia: No Hx Anesthesia Reactions: No Hx Malignant Hyperthermia: No Has any member of the family had a problem w/ anesthesia?: No Meds Allergies/Adverse Reactions: Allergies Allergy/AdvReac Type Severity Reaction Status Date / Time No Known Allergies Allergy Verified 12/08/16 11:28 - Medications Medications: Current Medications Amlodipine Besylate (Norvasc) 10 mg PO DAILY [facility] Last Admin: 12/12/16 09:42 Dose: 10 mg Aspirin (Aspirin Chewable) 81 mg PO DAILY [facility] Last Admin: 12/12/16 09:41 Dose: 81 mg Famotidine (Pepcid) 20 mg PO BID [facility] Last Admin: 12/12/16 09:42 Dose: 20 mg Furosemide (Lasix) 40 mg IVP BID [facility] Last Admin: 12/12/16 09:42 Dose: 40 mg Heparin Sodium (Porcine) (Heparin) 5,000 units SC Q12 [facility] Last Admin: 12/12/16 09:42 Dose: 5,000 units Hydralazine HCl (Apresoline) 10 mg IVP Q6H PRN PRN Reason: Systolic Blood Pressure Lactic Acid (Lac-Hydrin 12% Lotion (225 G)) 0 gm EXT DAILY [facility] Lisinopril (Zestril) 40 mg PO DAILY [facility] Last Admin: 12/12/16 09:42 Dose: 40 mg Nicotine (Nicoderm Cq) 1 patch TD DAILY [facility] Last Admin: 12/12/16 09:41 Dose: 1 patch Rosuvastatin Calcium (Crestor) 5 mg PO HS [facility] Last Admin: 12/11/16 22:13 Dose: 5 mg Physical Exam - Constitutional Appears: Well, Non-toxic, No Acute Distress - Extremities Exam Additional comments: Vasc: palpable pedal pulses b/l, TG wnl, CFT < 3 sec to all digits neuro: grossly intact derm: no edema, no erythema, dirt and discoloration noted to plantar and lateral feet b/l due to shoe gear, no open lesions, nails are cut to hygienic length, no hyperkeratotic lesions, diffuse plantar and dorsal xerosis b/l, no acute clinical signs of infection ortho: no pain on palpation to foot b/l, rigid contractures of toes 2-5 b/l - Neurological Exam Neurological exam: Alert, Oriented x3 Results - Vital Signs Recent Vital Signs: Last Vital Signs Temp 97.2 F L 12/12/16 08:51 Pulse 47 L 12/12/16 08:51 Resp 20 12/12/16 08:51 BP 145/96 H 12/12/16 09:42 Pulse Ox 100 12/12/16 08:51 - Labs Result Diagrams: 12/11/16 08:05 12/11/16 08:05 Assessment & Plan - Assessment and Plan (Free Text) Assessment: 56 y/o homeless male seen at bedside for routine foot care Plan: patient evaluated and chart reviewed discussed in detail with attending Dr. Gomez labs and vitals reviewed; afebrile Rx ammonium lactate cream to apply daily instructed patient on importance of hygiene thank you for the consultation. please reconsult as necessary
[2016-12-12 15:59] VITALS: BP 147/90; PULSE 56; O2SAT 98
[2016-12-13] MEDS ORDERED: Ammonium Lactate 12% Lotion (225 g) EXT SCH (10:00)
--- NOTE | 2016-12-13 11:39 | VASCLAB ---
PROCEDURE: Lower Extremity Venous Duplex Exam. HISTORY: LE edema PRIORS: None. TECHNIQUE: Bilateral common femoral, femoral, popliteal and posterior tibial, peroneal and great saphenous veins were evaluated. Flow was assessed with color Doppler, compressibility, assessment of phasic flow and augmentation response. Report prepared by MELINA Marlow, RVT FINDINGS: RIGHT: 1. Common Femoral Vein: 1.1. Compressibility - Fully compressible: Thrombus - None : Flow - Phasic: Augmentation -Normal: Reflux - None. 2. Femoral Vein: 2.1. Compressibility - Fully compressible: Thrombus - None : Flow - Phasic: Augmentation -Normal: Reflux - None. 3. Popliteal Vein: 3.1. Compressibility - Fully compressible: Thrombus - None : Flow - Phasic: Augmentation -Normal: Reflux - None. 4. Posterior Tibial Vein: 4.1. Compressibility - Fully compressible: Thrombus - None: Flow - Phasic: Augmentation -Normal: Reflux - None. 5. Peroneal Vein: 5.1. Compressibility - Fully compressible: Thrombus - None: Flow - Phasic: Augmentation -Normal: Reflux - None. 6. Great Saphenous Vein: 6.1. Compressibility - Fully compressible: Thrombus - None: Flow - Phasic: Augmentation - Normal: Reflux - None. LEFT: 1. Common Femoral Vein: 1.1. Compressibility - Fully compressible: Thrombus - None: Flow - Phasic: Augmentation -Normal: Reflux - None. 2. Femoral Vein: 2.1. Compressibility - Fully compressible: Thrombus - None: Flow - Phasic: Augmentation -Normal: Reflux - None. 3. Popliteal Vein: 3.1. Compressibility - Fully compressible: Thrombus - None : Flow - Phasic: Augmentation -Normal: Reflux - None. 4. Posterior Tibial Vein: 4.1. Compressibility - Fully compressible: Thrombus - None: Flow - Phasic: Augmentation -Normal: Reflux - None. 5. Peroneal Vein: 5.1. Compressibility - Fully compressible: Thrombus - None: Flow - Phasic: Augmentation -Normal: Reflux - None. 6. Great Saphenous Vein: 6.1. Compressibility - Fully compressible: Thrombus - None: Flow - Phasic: Augmentation - Normal: Reflux - None. OTHER FINDINGS: Right: None significant. Left: None significant. IMPRESSION: Right: Acute thrombosis of the right short saphenous vein with severe reduction of the venous return. Left: No evidence of deep or superficial vein thrombosis of the left lower extremity. Normal valve function noted of the left side.
== END 2016-12-12 17:30 | disposition home or self-care (01) | DRG 305 ==
LOC: C.ER 11:19 → INTOOBSV 15:08 → C.6T 15:08 → OBSVTOIN 12-10 18:05
PROVIDERS: ADMIT Internal Medicine; ATTEND Hospitalist
DX: I10 Essential (primary) hypertension (principal); E87.6 Hypokalemia; R60.0 Localized edema; F17.200 Nicotine dependence, unspecified, uncomplicated; Z59.0 Homelessness; Z86.73 Personal history of transient ischemic attack (TIA), and cerebral infarction without residual deficits

== ENCOUNTER 2017-02-05 03:08 | Observation (INO) | payer MEDICAID, MEDICARE, OTHER ==
[2017-02-05 03:09] VITALS: BMI 25.0
[2017-02-05 03:30] VITALS: RESP 18
--- NOTE | 2017-02-05 04:37 | C.PDOC ---
History Of Present Illness 57 year old male who was brought to the ER by [facility] after he was found sleeping [place] a park. Denies physical complaints at this time. Time Seen by Provider: 02/05/17 03:35 Chief Complaint (Nursing): Medical Clearance History Per: Patient History/Exam Limitations: no limitations Onset/Duration Of Symptoms: Hrs Recent travel outside of the [place]: No Past Medical History Reviewed: Historical Data, Nursing Documentation, Vital Signs Vital Signs: Last Vital Signs Temp 98.0 F 02/05/17 06:10 Pulse 97 H 02/05/17 06:10 Resp 18 02/05/17 06:10 BP 156/92 H 02/05/17 06:10 Pulse Ox 99 02/05/17 06:10 - Medical History PMH: CVA Surgical History: No Surg Hx - [facility] Procedures OCCUPATIONAL THERAPY (05/07/14) PHYSICAL THERAPY NEC (05/07/14) Family History: States: Unknown Family Hx - Social History Hx Alcohol Use: Yes Hx Substance Use: No - Immunization History Hx Tetanus Toxoid Vaccination: No Hx Influenza Vaccination: No Hx Pneumococcal Vaccination: No Review Of Systems Constitutional: Negative for: Fever, Chills Gastrointestinal: Negative for: Nausea, Vomiting, Diarrhea Physical Exam - Physical Exam Appears: Non-toxic, No Acute Distress Skin: Normal Color, Warm, Dry Head: Atraumatic, Normacephalic Oral Mucosa: Moist Chest: Symmetrical, No Tenderness Cardiovascular: Rhythm Regular, No Murmur Respiratory: Normal Breath Sounds, No Rales, No Rhonchi, No Wheezing Gastrointestinal/Abdominal: Soft, No Tenderness Neurological/Psych: Oriented x3, Normal Speech, Normal Cognition ED Course And Treatment O2 Sat by Pulse Oximetry: 100 (Room air) Pulse Ox Interpretation: Normal Progress Note: Pt was sleeping comfortably on stretcher and now is fully ambulatory in ED. Ate a sandwich and is stable for discharge Disposition - Disposition Referrals: Non [facility] Provider, [Primary Care Provider] - Disposition: HOME/ ROUTINE Disposition Time: 06:15 Condition: STABLE Forms: General Discharge Instructions - Clinical Impression Clinical Impression: Medical assessment - Scribe Statement The provider has reviewed the documentation as recorded by the Scribe Rogelio Manning All medical record entries made by the Scribe were at my direction and personally dictated by me. I have reviewed the chart and agree that the record accurately reflects my personal performance of the history, physical exam, medical decision making, and the department course for this patient. I have also personally directed, reviewed, and agree with the discharge instructions and disposition.
[2017-02-05 06:11] VITALS: BP 156/92; PULSE 97; TEMP 98
[2017-02-05 06:16] VITALS: O2SAT 100
== END 2017-02-05 06:16 | disposition home or self-care (01) ==
LOC: SUPCPDRO 03:08 → C.ER 03:08 → C.9OBSV 06:13
PROVIDERS: ADMIT Emergency Medicine; ATTEND Emergency Medicine
DX: Z04.8 Encounter for examination and observation for other specified reasons (principal); Z86.73 Personal history of transient ischemic attack (TIA), and cerebral infarction without residual deficits
CPT/HCPCS: 99283; G0378

== ENCOUNTER 2017-02-21 08:39 | Emergency (ER) | payer OTHER ==
[2017-02-21 08:39] VITALS: BMI 25.0
[2017-02-21 08:54] VITALS: O2SAT 100
--- NOTE | 2017-02-21 10:56 | C.PDOC ---
History Of Present Illness 57 y/o male brought to ED by EMS after being found wandering on the streets [place] to [place]. Prior records reviewed. Pt has been brought to [facility] by EMS in the past for similar reasons. Pt has been here in the past after being found sleeping in the park. Pt denies any active physical complaints at this time. Time Seen by Provider: 02/21/17 09:31 Chief Complaint (Nursing): Weakness/Neurological Deficit History Per: Patient History/Exam Limitations: no limitations Onset/Duration Of Symptoms: Gradual Current Symptoms Are (Timing): Still Present Fall Associated With With Symptoms: No Severity: None Pain Scale Rating Of: 0 Recent travel outside of the [place]: No Additional History Per: Patient, Prior Records Past Medical History Reviewed: Historical Data, Nursing Documentation, Vital Signs Vital Signs: Last Vital Signs Temp 97.8 F 02/21/17 08:50 Pulse 74 02/21/17 10:25 Resp 18 02/21/17 10:25 BP 185/115 H 02/21/17 10:25 Pulse Ox 100 02/21/17 11:03 - Medical History PMH: CVA Comment Only: HTN (pt denies) - [facility] Procedures OCCUPATIONAL THERAPY (05/07/14) PHYSICAL THERAPY NEC (05/07/14) Family History: States: Unknown Family Hx - Social History Hx Alcohol Use: No Hx Substance Use: No - Immunization History Hx Tetanus Toxoid Vaccination: No Hx Influenza Vaccination: No Hx Pneumococcal Vaccination: No Review Of Systems Except As Marked, All Systems Reviewed And Found Negative. Constitutional: Negative for: Fever, Chills Cardiovascular: Negative for: Chest Pain, Palpitations Respiratory: Negative for: Cough, Shortness of Breath Gastrointestinal: Negative for: Nausea, Vomiting, Abdominal Pain Musculoskeletal: Negative for: Neck Pain, Back Pain Skin: Negative for: Rash, Bruising Neurological: Negative for: Weakness, Numbness, Headache, Dizziness Psych: Negative for: Suicidal ideation Physical Exam - Physical Exam Appears: Non-toxic, No Acute Distress Skin: Normal Color, Warm, Dry, No Rash Head: Atraumatic, Normacephalic Eye(s): bilateral: Normal Inspection, EOMI Nose: Normal Oral Mucosa: Moist Neck: Normal ROM, Supple Chest: Symmetrical Respiratory: No Accessory Muscle Use Extremity: Normal ROM, No Tenderness, No Deformity Extremity: Bilateral: Atraumatic, Normal ROM Neurological/Psych: Oriented x3, Normal Speech ED Course And Treatment O2 Sat by Pulse Oximetry: 100 Pulse Ox Interpretation: Normal Disposition - Disposition Disposition: HOME/ ROUTINE Disposition Time: 11:38 Condition: STABLE Forms: General Discharge Instructions - POA Present On Arrival: None - Clinical Impression Clinical Impression: Homeless - Scribe Statement The provider has reviewed the documentation as recorded by the Cristianibe Harley Pearson All medical record entries made by the Cristianibe were at my direction and personally dictated by me. I have reviewed the chart and agree that the record accurately reflects my personal performance of the history, physical exam, medical decision making, and the department course for this patient. I have also personally directed, reviewed, and agree with the discharge instructions and disposition.
[2017-02-21 11:06] VITALS: RESP 18
[2017-02-21 11:55] VITALS: BP 160/104; PULSE 84; TEMP 97
== END 2017-02-21 11:56 | disposition home or self-care (01) ==
LOC: C.ER 08:39
DX: Z04.8 Encounter for examination and observation for other specified reasons (principal); Z59.0 Homelessness

== ENCOUNTER 2017-03-23 03:06 | Emergency (ER) | payer OTHER ==
[2017-03-23 03:07] VITALS: BMI 25.0
--- NOTE | 2017-03-23 03:29 | C.PDOC ---
History Of Present Illness 57 year old male, with history of homelessness, presents to the ED via EMS for evaluation after he was found wandering in the street prior to arrival. Patient denies any complaints or pain at this time. Chief Complaint (Nursing): Medical Clearance History Per: Patient, EMS History/Exam Limitations: no limitations Onset/Duration Of Symptoms: Hrs Current Symptoms Are (Timing): Still Present Additional History Per: Patient, EMS Past Medical History Reviewed: Historical Data, Nursing Documentation, Vital Signs Vital Signs: Last Vital Signs Temp 98.4 F 03/23/17 03:18 Pulse 106 H 03/23/17 03:18 Resp 18 03/23/17 03:18 BP 130/90 03/23/17 03:18 Pulse Ox 98 03/23/17 03:38 - Medical History PMH: CVA Denies: Arthritis, CHF, COPD, Hypercholesterolemia, Hypothyroidism, Chronic Kidney Disease, Rheumatoid Arthritis Comment Only: HTN (pt denies) Surgical History: No Surg Hx - [facility] Procedures OCCUPATIONAL THERAPY (05/07/14) PHYSICAL THERAPY NEC (05/07/14) Family History: States: Unknown Family Hx - Social History Hx Alcohol Use: No Hx Substance Use: No - Immunization History Hx Tetanus Toxoid Vaccination: No Hx Influenza Vaccination: No Hx Pneumococcal Vaccination: No Review Of Systems Constitutional: Negative for: Fever, Chills Physical Exam - Physical Exam Appears: Non-toxic, No Acute Distress Skin: Normal Color, Warm, Dry Head: Atraumatic, Normacephalic Eye(s): bilateral: Normal Inspection Oral Mucosa: Moist Neck: Supple Chest: Symmetrical, No Deformity, No Tenderness Cardiovascular: Rhythm Regular, No Murmur Respiratory: Normal Breath Sounds, No Rales, No Rhonchi, No Wheezing Extremity: Normal ROM, Capillary Refill (less than 2 seconds ) Neurological/Psych: Oriented x3, Normal Speech, Normal Cognition Gait: Steady ED Course And Treatment O2 Sat by Pulse Oximetry: 98 (on RA) Pulse Ox Interpretation: Normal Disposition Counseled Patient/Family Regarding: Diagnosis - Disposition Referrals: [facility] [Outside] Disposition: HOME/ ROUTINE Disposition Time: 03:28 Condition: STABLE Forms: [facility] ([place]) - POA Present On Arrival: None - Clinical Impression Clinical Impression: Homelessness - Scribe Statement The provider has reviewed the documentation as recorded by the Scribe (Mai Pearson) Provider Attestation: All medical record entries made by the Scribe were at my direction and personally dictated by me. I have reviewed the chart and agree that the record accurately reflects my personal performance of the history, physical exam, medical decision making, and the department course for this patient. I have also personally directed, reviewed, and agree with the discharge instructions and disposition.
[2017-03-23 05:26] VITALS: BP 126/79; PULSE 76; RESP 16; TEMP 98; O2SAT 99
== END 2017-03-23 05:25 | disposition home or self-care (01) ==
LOC: C.ER 03:06
DX: Z59.0 Homelessness (principal)

== ENCOUNTER 2017-04-01 21:32 | Emergency (ER) | payer MEDICARE, OTHER ==
[2017-04-01 21:33] VITALS: BMI 22.8
--- NOTE | 2017-04-01 22:24 | C.PDOC ---
History Of Present Illness 57 year old male was brought to the ED via EMS for alcohol intoxication. Patient is requesting to sleep and admits to drinking alcohol prior to arrival. Contrary to triage, patient denies any physical complaints, suicidal, or homicidal ideations. Time Seen by Provider: 04/01/17 21:48 Chief Complaint (Nursing): Lower Extremity Problem/Injury History Per: Patient, EMS History/Exam Limitations: no limitations Onset/Duration Of Symptoms: Hrs Current Symptoms Are (Timing): Still Present Recent travel outside of the [place]: No Past Medical History Reviewed: Historical Data, Nursing Documentation, Vital Signs Vital Signs: Last Vital Signs Temp 97.8 F 04/02/17 06:22 Pulse 83 04/02/17 06:22 Resp 20 04/02/17 06:22 BP 148/83 04/02/17 06:22 Pulse Ox 96 04/02/17 06:22 - Medical History PMH: CVA Comment Only: HTN (pt denies) - [facility] Procedures OCCUPATIONAL THERAPY (05/07/14) PHYSICAL THERAPY NEC (05/07/14) Family History: States: Unknown Family Hx - Social History Hx Alcohol Use: No Hx Substance Use: No - Immunization History Hx Tetanus Toxoid Vaccination: No Hx Influenza Vaccination: No Hx Pneumococcal Vaccination: No Review Of Systems Constitutional: Negative for: Fever, Chills Cardiovascular: Negative for: Chest Pain Respiratory: Negative for: Shortness of Breath Gastrointestinal: Negative for: Nausea, Vomiting, Abdominal Pain Psych: Negative for: Suicidal ideation Physical Exam - Physical Exam Appears: Non-toxic, No Acute Distress, Unkempt, Other (EtOH on breath ) Skin: Warm, Dry Head: Atraumatic, Normacephalic Eye(s): bilateral: Normal Inspection, PERRL, EOMI Oral Mucosa: Moist Neck: Normal ROM, Supple Chest: Symmetrical, No Deformity Cardiovascular: Rhythm Regular, No Murmur Respiratory: Rales, Rhonchi, Wheezing, No Other (clear to auscultation bilaterally ) Gastrointestinal/Abdominal: Soft, No Tenderness, No Distention, No Guarding, No Rebound Extremity: Normal ROM, No Tenderness Neurological/Psych: Other (alert, no focal deficits ) ED Course And Treatment O2 Sat by Pulse Oximetry: 96 (RA) Medical Decision Making Medical Decision Making: Patient observed in ED for 9 hours, no distress. Ambulatory, steady gait. Will discharge. Disposition - Disposition Disposition: HOME/ ROUTINE Disposition Time: 06:25 Condition: STABLE Instructions: Alcohol Intoxication (ED) Forms: [employer] [facility] ([place]) - Clinical Impression Clinical Impression: Intoxication - Scribe Statement The provider has reviewed the documentation as recorded by the Scribe Maki Rene All medical record entries made by the Scribe were at my direction and personally dictated by me. I have reviewed the chart and agree that the record accurately reflects my personal performance of the history, physical exam, medical decision making, and the department course for this patient. I have also personally directed, reviewed, and agree with the discharge instructions and disposition.
[2017-04-02 06:23] VITALS: BP 148/83; PULSE 83; RESP 20; TEMP 97.8; O2SAT 96
== END 2017-04-02 06:51 | disposition home or self-care (01) ==
LOC: C.ER 21:32
DX: F10.129 Alcohol abuse with intoxication, unspecified (principal)

== ENCOUNTER 2017-08-04 18:53 | Inpatient (IN) | payer MEDICARE, OTHER ==
[2017-08-04 18:57] VITALS: BMI 22.9
[2017-08-04 22:11] LABS: BASO % 0.6 % (0.0-2.0); EOS # 0.4 K/uL (0.0-0.7); EOS % 8.9 % (0.0-4.0); LYMPH # 1.3 K/uL (1.0-4.3); LYMPH % 26.2 % (20.0-40.0); MEAN CORPUSCULAR HEMOGLOBIN 30.6 pg (27.0-31.0); MEAN CORPUSCULAR HGB CONC 33.8 g/dL (33.0-37.0); MEAN PLATELET VOLUME 8.4 fL (7.2-11.7); MONO # 0.6 K/uL (0.0-0.8); MONO % 12.2 % (0.0-10.0); NEUT # 2.6 K/uL (1.8-7.0); NEUT % 52.1 % (50.0-75.0); NRBC % 0.1 % (0.0-2.0); RBC 4.18 Mil/uL (4.40-5.90); RED CELL DISTRIBUTION WIDTH 14.8 % (11.5-14.5)
[2017-08-04 22:14] LABS: HEMOGLOBIN 12.8 g/dL (12.0-18.0); MEAN CELL VOLUME 90.4 fL (80.0-94.0)
[2017-08-04 22:22] LABS: ALBUMIN 3.3 g/dL (3.5-5.0); ALT/SGPT 48 U/L (21-72); AST/SGOT 44 U/L (17-59); BLOOD UREA NITROGEN 21 mg/dL (9-20); CALCIUM 9.1 mg/dl (8.6-10.4); GFR AFRICAN-AMERICAN > 60; GFR NON-AFRICAN AMERICAN > 60
[2017-08-04 22:30] LABS: B-TYPE NATRIURETIC PEPTIDE 8660 pg/mL (0-900)
--- NOTE | 2017-08-04 22:32 | C.PDOC ---
History Of Present Illness 57 y/o male brought to ED by ambulance for complaints of right hip pain that began several weeks ago. He is also c/o B/L leg and foot swelling, pain and redness that has been worsening over the past several months. Patient is homeless and has no PMD. He denies falls/injuries, fever, chest pain, abdominal pain. He admits to occasional SOB with exertion. Time Seen by Provider: 08/04/17 19:15 Chief Complaint (Nursing): Lower Extremity Problem/Injury History Per: Patient History/Exam Limitations: no limitations Onset/Duration Of Symptoms: Persistent Current Symptoms Are (Timing): Still Present Severity: Moderate Recent travel outside of the [place]: No - Ankle/Foot Description Of Injury: denies: Struck Against Object Past Medical History Reviewed: Historical Data, Nursing Documentation, Vital Signs Vital Signs: Last Vital Signs Temp 97.7 F 08/09/17 07:00 Pulse 70 08/09/17 07:00 Resp 20 08/09/17 07:00 BP 125/77 08/09/17 13:52 Pulse Ox 100 08/09/17 07:00 - Medical History PMH: CVA, HTN - [facility] Procedures OCCUPATIONAL THERAPY (05/07/14) PHYSICAL THERAPY NEC (05/07/14) Family History: States: No Known Family Hx - Social History Hx Alcohol Use: No Hx Substance Use: No - Immunization History Hx Tetanus Toxoid Vaccination: No Hx Influenza Vaccination: No Hx Pneumococcal Vaccination: No Review Of Systems Except As Marked, All Systems Reviewed And Found Negative. Constitutional: Negative for: Fever, Chills Cardiovascular: Negative for: Chest Pain Respiratory: Negative for: Cough Gastrointestinal: Negative for: Nausea, Vomiting, Abdominal Pain, Diarrhea Musculoskeletal: Positive for: Foot Pain, Other (Right hip pain) Neurological: Negative for: Weakness, Numbness Physical Exam - Physical Exam Appears: Well, Non-toxic, No Acute Distress, Unkempt Skin: Normal Color, Warm, Dry, Other (see foot exam) Head: Normacephalic Eye(s): bilateral: Normal Inspection Oral Mucosa: Moist Cardiovascular: Rhythm Regular Respiratory: Normal Breath Sounds, No Rales, No Rhonchi, No Wheezing Gastrointestinal/Abdominal: Normal Exam, Bowel Sounds, Soft, No Tenderness, No Distention Extremity: Tenderness (mild to right hip with palpitation ), Pedal Edema (+2 pitting edema B/L LEs, erythema of lower legs and feet ), No Deformity, Swelling (Moderate swelling to B/L feet, erythematous; Peeling skin on superior aspect of feet; dried crusted dirt on toes, appearance on trench foot B/L) Pulses: Left Dorsalis Pedis: Normal, Right Dorsalis Pedis: Normal Neurological/Psych: Oriented x3 ED Course And Treatment - Laboratory Results Result Diagrams: 08/09/17 07:17 08/09/17 07:17 O2 Sat by Pulse Oximetry: 99 (RA) Pulse Ox Interpretation: Normal - Radiology CXR: Interpreted by Me, Viewed By Me CXR Interpretation: Yes: No Acute Disease. No: Infiltrates - CT Scan/US CT Hip Other Rad Studies (CT/US): Read By Radiologist, Radiology Report Reviewed CT/US Interpretation: EXAM: CT Right Lower Extremity Without Intravenous Contrast, Hip. CLINICAL HISTORY: 57 years old, male; Pain; Hip; Right; Additional info: Right hip/upper femur possible mass? TECHNIQUE: Axial computed tomography images of the right hip without intravenous contrast. All CT scans at this. facility use one or more dose reduction techniques, viz.: automated exposure control; ma/kV. adjustment per patient size (including targeted exams where dose is matched to indication; i.e. head);. or iterative reconstruction technique. Coronal and sagittal reformatted images were created and reviewed. COMPARISON: No relevant prior studies available. FINDINGS: Bones/joints: Benign-appearing, sclerotic margins, well-circumscribed intramedullary lesion proximal. femur. Further evaluation can be obtained with bone scan or MRI to ensure that there is no. increased activity or reactive change. No acute fracture. No dislocation. Soft tissues: Unremarkable. IMPRESSION: 1. No acute fracture or dislocation of right hip. 2. Benign- appearing, sclerotic margins, well-circumscribed intramedullary lesion proximal femur. Further evaluation can be obtained with bone scan or MRI to ensure that there is no increased. activity or reactive change. [facility]. [facility] Radiology [facility]. Final Radiology Report [id number]. Name: FREDDY OLVERA Age: 57Years M Date: 08/04/2017. SSN: [id number] : 1959. Study: CT EXTREMITY LOWER WO Requesting Physician: JACOBO MONTEIRO. Images: 540. Addl Studies: Provided Clinical History: right hip/upper femur possible mass? CONFIDENTIALITY STATEMENT. This transmission is confidential and is intended to be a privileged communication. It is intended only for the use of the addressee. Access to this. message by anyone else is unauthorized. If you are not the intended recipient, any disclosure, copying, distribution or any action taken, or omitted to. be taken in reliance on it is prohibited and may be unlawful. If you received this communication in error, please notify us by telephone, so that return. of this document to us can be arranged. Page 2 of 2. Thank you for allowing us to participate in the care of your patient. Dictated and Authenticated by: Justin Recio MD. 08/04/2017 11:07 PM Eastern Time ([place] & [place]) Progress Note: Blood work, Xray of right hip and CXR ordered and reviewed. R hip Xray shows ? proximal femur mass, CT pelvis/hip ordered. Patient given IV Vancomycin, IV Cefepime for LE cellulitis. - Physician Consult Information Physician Contacted: Amrik Knox Outcome Of Conversation: Discussed patient with hospitalist, agrees with admission for BNP elevation possible CHF, lower extremity edema/cellulitis, trench foot. Medical Decision Making Medical Decision Making: Ordered hip X-Ray, blood work and cultures. Hip X-Ray: - Right proximal femur questionable mass. Ordered CT of Hip. Disposition - Disposition Disposition: HOSPITALIZED Disposition Time: 01:13 Condition: STABLE - Clinical Impression Clinical Impression: Trench foot, Cellulitis of foot, Peripheral edema, Hip pain, right, Elevated brain natriuretic peptide (BNP) level - Scribe Statement The provider has reviewed the documentation as recorded by the Scribe Kennedi Hernandez All medical record entries made by the Scribe were at my direction and personally dictated by me. I have reviewed the chart and agree that the record accurately reflects my personal performance of the history, physical exam, medical decision making, and the department course for this patient. I have also personally directed, reviewed, and agree with the discharge instructions and disposition. Decision To Admit - Pt Status Changed To: Hospital Disposition Of: Observation - . Bed Request Type: Regular Admitting Physician: Amrik Knox Patient Diagnosis: Trench foot, Cellulitis of foot, Elevated brain natriuretic peptide (BNP) level , Peripheral edema
--- NOTE | 2017-08-04 23:07 | CT ---
EXAM: CT Right Lower Extremity Without Intravenous Contrast, Hip CLINICAL HISTORY: 57 years old, male; Pain; Hip; Right; Additional info: Right hip/upper femur possible mass? TECHNIQUE: Axial computed tomography images of the right hip without intravenous contrast. All CT scans at this facility use one or more dose reduction techniques, viz.: automated exposure control; ma/kV adjustment per patient size (including targeted exams where dose is matched to indication; i.e. head); or iterative reconstruction technique. Coronal and sagittal reformatted images were created and reviewed. COMPARISON: No relevant prior studies available. FINDINGS: Bones/joints: Benign-appearing, sclerotic margins, well-circumscribed intramedullary lesion proximal femur. Further evaluation can be obtained with bone scan or MRI to ensure that there is no increased activity or reactive change. No acute fracture. No dislocation. Soft tissues: Unremarkable. IMPRESSION: 1. No acute fracture or dislocation of right hip. 2. Benign-appearing, sclerotic margins, well-circumscribed intramedullary lesion proximal femur. Further evaluation can be obtained with bone scan or MRI to ensure that there is no increased activity or reactive change.
[2017-08-05] MEDS ORDERED: Cefepime 1 GM in Sodium Chloride 0.9% 50 ML IVPB STA (00:30)
[2017-08-05] MEDS ORDERED: Vancomycin 1 GM 1 GM/250 ML BAG IV STA (00:30)
[2017-08-05] MEDS ORDERED: Cefepime IV 1 gm in Dextrose 1 GM/50 ML BAG IVPB STA (01:22)
[2017-08-05] MEDS ORDERED: Vancomycin 1 gm/NS 200 ml 1 GM/200 ML BAG IVPB STA (01:22)
[2017-08-05] MEDS ORDERED: Potassium Chloride 20 mEq ER Tab PO ONE (02:14)
--- NOTE | 2017-08-05 02:30 | CP.PCM.HP ---
<ReubenNila - Last Filed: 08/05/17 03:00> History of Present Illness - History of Present Illness History of Present Illness: CC: Right hip pain HPI: Patient is a 57 year old homeless male with a past medical history of hypertension, diastolic heart failure, and CVA (left DULITE MACHINE BLUER infarct), who presents to the ED with right hip pain. During initial questioning patient says "I don't know why the ambulance brought me here" but with further questioning, cory admits to right sided hip pain that started two days ago while he was sitting talking with his family. Patient says it came on suddenly and feels sore as if he fell on it, although he denies falling or trauma to the area. Patient describes it as 9/10 and worsens with movement. When examining the patient, I asked about the lower extremity edema, which he attributes to his shoes. I asked if they were too small or uncomfortable and he just replies "no my shoes just do that". Of note, patient was recently discharged from the hospital for HTN and started on BP meds. Patient says he has not been taking them because he ran out. Patient denies fever, chills, headache, dizziness, changes in vision/ hearing, chest pain, SOB, palpitations, abdominal pain, nausea, vomiting, diarrhea, constipation, changes in urination, and calf pain. PMH: hypertension, diastolic heart failure, and CVA (left DULITE MACHINE BLUER infarct) Meds: denies (recently discharged with lisinopril 10 mg QD, amlodipine 10 mg QD , ASA 81 mg QD, Crestor 5 mg HS, Lasix 20 mg QD) Allergies: denies PSH: denies FH: denies SH: smokes 1 PPD >40 years, denies alcohol and elicit drug use, homeless Present on Admission - Present on Admission Any Indicators Present on Admission: No Review of Systems - Review of Systems All systems: reviewed and no additional remarkable complaints except (as per HPI ) Past Patient History - Infectious Disease Hx of Infectious Diseases: None - Tetanus Immunizations Tetanus Immunization: Unknown - Past Medical History & Family History Past Medical History?: No - Past Social History Smoking Status: Current Some Days Smoker - CARDIAC Hx Hypertension: Yes - PULMONARY Hx Chronic Obstructive Pulmonary Disease (COPD): No - NEUROLOGICAL Hx Seizures: No - HEENT Hx HEENT Problems: No - RENAL Hx Chronic Kidney Disease: No - ENDOCRINE/METABOLIC Hx Hypothyroidism: No - HEMATOLOGICAL/ONCOLOGICAL Hx Human Immunodeficiency Virus (HIV): No - INTEGUMENTARY Hx Dermatological Problems: No - MUSCULOSKELETAL/RHEUMATOLOGICAL Hx Arthritis: No Hx Rheumatoid Arthritis: No - GASTROINTESTINAL Hx Gastrointestinal Disorders: No - GENITOURINARY/GYNECOLOGICAL Hx Sexually Transmitted Disorders: No - PSYCHIATRIC Hx Substance Use: No - SURGICAL HISTORY Hx Surgeries: No - ANESTHESIA Hx Anesthesia: No Hx Anesthesia Reactions: No Meds Allergies/Adverse Reactions: Allergies Allergy/AdvReac Type Severity Reaction Status Date / Time No Known Allergies Allergy Verified 08/04/17 18:57 Physical Exam - Constitutional Appears: Non-toxic, No Acute Distress, Unkempt - Head Exam Head Exam: ATRAUMATIC, NORMAL INSPECTION, NORMOCEPHALIC - Eye Exam Eye Exam: Conjunctival injection, EOMI, PERRL. absent: Scleral icterus - ENT Exam ENT Exam: Mucous Membranes Moist - Neck Exam Neck exam: Positive for: Normal Inspection - Respiratory Exam Respiratory Exam: Clear to Auscultation Bilateral, NORMAL BREATHING PATTERN. absent: Accessory Muscle Use, Rales, Rhonchi, Wheezes, Respiratory Distress - Cardiovascular Exam Cardiovascular Exam: RRR, +S1, +S2. absent: Bradycardia, Tachycardia, Diastolic murmur, Gallop, Rubs, Systolic Murmur - GI/Abdominal Exam GI & Abdominal Exam: Normal Bowel Sounds, Soft. absent: Bruit, Distended, Pulsatile Mass, Tenderness - Extremities Exam Extremities exam: Positive for: pedal edema (2+ pitting ). Negative for: calf tenderness, tenderness Additional comments: Erythema b/l extending up to knees - Neurological Exam Neurological exam: Alert, Oriented x3 - Psychiatric Exam Psychiatric exam: Normal Affect, Normal Mood - Skin Skin Exam: Dry, Intact, Warm Results - Vital Signs Recent Vital Signs: Last Vital Signs Temp 98.1 F 08/04/17 22:14 Pulse 84 08/04/17 22:14 Resp 16 08/04/17 22:14 BP 168/88 H 08/04/17 22:14 Pulse Ox 99 08/05/17 01:09 - Labs Result Diagrams: 08/04/17 22:07 08/04/17 22:07 Labs: Laboratory Results - last 24 hr 08/04/17 08/04/17 22:07 22:07 WBC 5.0 RBC 4.18 L Hgb 12.8 D Hct 37.8 MCV 90.4 D MCH 30.6 MCHC 33.8 RDW 14.8 H Plt Count 180 MPV 8.4 Neut % (Auto) 52.1 Lymph % (Auto) 26.2 [place] % (Auto) 12.2 H Eos % (Auto) 8.9 H Baso % (Auto) 0.6 Neut # (Auto) 2.6 Lymph # (Auto) 1.3 [place] # (Auto) 0.6 Eos # (Auto) 0.4 Baso # (Auto) 0.0 Sodium 144 Potassium 3.5 L Chloride 104 Carbon Dioxide 28 Anion Gap 14 BUN 21 H Creatinine 0.8 Est GFR ( Amer) > 60 Est GFR (Non-Af Amer) > 60 Random Glucose 116 H Calcium 9.1 Total Bilirubin 0.7 AST 44 ALT 48 Alkaline Phosphatase 75 Total Creatine Kinase 62 NT-Pro-B Natriuret Pep 8660 H Total Protein 6.8 Albumin 3.3 L Globulin 3.5 Albumin/Globulin Ratio 1.0 Assessment & Plan (1) Hypertensive urgency Assessment and Plan: * BP 208/137 on arrival * Vitals Q4H * CXR: pending * Echo (04/16/17): EF 60%, concentric LVH, impaired diastolic relaxation * f/u new echo since patient has most likely had persistent uncontrolled HTN since that time * Started BP meds from last admission: * lisinopril 10 mg QD * amlodipine 10 mg QD * Given Lasix 40 mg IV stat * HHD with Na restriction Status: Acute (2) Hip pain, right Assessment and Plan: * Hip XR: pending read * Hip CT: benign sclerotic margins and well circumscribed intramedullary lesion of the proximal femur * Hip MRI: pending * Tylenol PRN pain Status: Acute (3) Lower extremity edema Assessment and Plan: * Bilateral * Erythema present but non painful * No leukocytosis * Afebrile * Likely 2/2 diastolic dysfunction, unlikely cellulitis * Echo (04/16/17): EF 60%, concentric LVH, impaired diastolic relaxation * f/u new echo since patient has most likely had persistent uncontrolled HTN since first echo * Blood cultures pending Status: Acute (4) Elevated brain natriuretic peptide (BNP) level Assessment and Plan: * BP: 208/137 on arrival * CXR: pending * Echo (04/16/17): EF 60%, concentric LVH, impaired diastolic relaxation * f/u new echo since patient has most likely had persistent uncontrolled HTN since that time Status: Acute (5) Hypokalemia Assessment and Plan: * K: 3.5 on admission * replaced * Monitor with AM labs Status: Acute (6) Tobacco abuse Assessment and Plan: * Smoking cessation counseling * Nicoderm patch Status: Acute Priority: High (7) Prophylactic measure Assessment and Plan: * DVT: heparin * GI: Protonix Status: Acute <Amrik Knox - Last Filed: 08/05/17 06:27> Results - Vital Signs Recent Vital Signs: Last Vital Signs Temp 98.1 F 08/04/17 22:14 Pulse 84 08/05/17 02:15 Resp 16 08/05/17 02:15 BP 167/82 H 08/05/17 02:48 Pulse Ox 97 08/05/17 02:15 - Labs Result Diagrams: 08/04/17 22:07 08/04/17 22:07 Labs: Laboratory Results - last 24 hr 08/04/17 08/04/17 22:07 22:07 WBC 5.0 RBC 4.18 L Hgb 12.8 D Hct 37.8 MCV 90.4 D MCH 30.6 MCHC 33.8 RDW 14.8 H Plt Count 180 MPV 8.4 Neut % (Auto) 52.1 Lymph % (Auto) 26.2 [place] % (Auto) 12.2 H Eos % (Auto) 8.9 H Baso % (Auto) 0.6 Neut # (Auto) 2.6 Lymph # (Auto) 1.3 [place] # (Auto) 0.6 Eos # (Auto) 0.4 Baso # (Auto) 0.0 Sodium 144 Potassium 3.5 L Chloride 104 Carbon Dioxide 28 Anion Gap 14 BUN 21 H Creatinine 0.8 Est GFR ( Amer) > 60 Est GFR (Non-Af Amer) > 60 Random Glucose 116 H Calcium 9.1 Total Bilirubin 0.7 AST 44 ALT 48 Alkaline Phosphatase 75 Total Creatine Kinase 62 NT-Pro-B Natriuret Pep 8660 H Total Protein 6.8 Albumin 3.3 L Globulin 3.5 Albumin/Globulin Ratio 1.0 Assessment & Plan - Date & Time Date: 08/05/17 (I have seen and examined the patient. I agree with the findings and plan of care as documented by Dr. Alexis. Patient initially here for hip pain. Xray negative for fracture. Lower extremity edema and hypertensive urgency. Continue home meds for hypertension and Lasix IV. Monitor for acute changes.) Time: 06:24 Attending/Attestation - Attestation I have personally seen and examined this patient.: Yes I have fully participated in the care of the patient.: Yes I have reviewed all pertinent clinical information: Yes
--- NOTE | 2017-08-05 08:12 | RAD ---
PROCEDURE: Right Hip Radiographs. HISTORY: right hip pain COMPARISON: None. FINDINGS: BONES: No acute fracture. Proximal right femoral diaphyseal well-circumscribed lesion with sclerotic rim. JOINTS: Bilateral hip degenerative changes. SOFT TISSUES: Normal. OTHER FINDINGS: None. IMPRESSION: No demonstrated fracture or dislocation. Bilateral hip degenerative changes. Nonspecific proximal right femoral well-circumscribed lesion with sclerotic rim. At the time this dictation, a CT scan of the right hip had already been performed.
--- NOTE | 2017-08-05 08:20 | RAD ---
PROCEDURE: CHEST RADIOGRAPH, 1 VIEW HISTORY: SOB COMPARISON: Chest radiograph dated 12/08/2016. FINDINGS: LUNGS: Prominence of the pulmonary vasculature may be secondary to AP technique and/or pulmonary vascular congestion. No focal consolidation. PLEURA: No pneumothorax or pleural fluid seen. CARDIOVASCULAR: Atherosclerotic aortic calcifications. Cardiomediastinal silhouette within normal limits. OSSEOUS STRUCTURES: Unchanged. VISUALIZED UPPER ABDOMEN: Normal. OTHER FINDINGS: None. IMPRESSION: Prominence of the pulmonary vasculature may be secondary to AP technique and/or pulmonary vascular congestion. No focal consolidation or pleural effusion.
[2017-08-05 08:26] LABS: BASO % 0.4 % (0.0-2.0); EOS # 0.3 K/uL (0.0-0.7); EOS % 7.4 % (0.0-4.0); HEMOGLOBIN 13.6 g/dL (12.0-18.0); LYMPH # 1.1 K/uL (1.0-4.3); LYMPH % 22.6 % (20.0-40.0); MEAN CELL VOLUME 90.4 fL (80.0-94.0); MEAN CORPUSCULAR HGB CONC 34.3 g/dL (33.0-37.0); MONO # 0.6 K/uL (0.0-0.8); MONO % 13.4 % (0.0-10.0); NEUT # 2.6 K/uL (1.8-7.0); NEUT % 56.2 % (50.0-75.0); NRBC % 0.3 % (0.0-2.0); RBC 4.39 Mil/uL (4.40-5.90); RED CELL DISTRIBUTION WIDTH 15.1 % (11.5-14.5); WHITE BLOOD COUNT 4.7 K/uL (4.8-10.8)
[2017-08-05 08:54] LABS: ALB/GLOB RATIO 0.9 (1.0-2.1); ALBUMIN 3.4 g/dL (3.5-5.0); ALT/SGPT 51 U/L (21-72); AST/SGOT 53 U/L (17-59); BLOOD UREA NITROGEN 19 mg/dL (9-20); CALCIUM 9.1 mg/dl (8.6-10.4); GFR AFRICAN-AMERICAN > 60; GFR NON-AFRICAN AMERICAN > 60
--- NOTE | 2017-08-05 10:09 | VASCLAB ---
PROCEDURE: Lower Extremity Venous Duplex Exam. HISTORY: r/o dvt B/L LE edma, pain, cellulitis R>L PRIORS: Lower extremity ultrasound dated 12/12/2016. TECHNIQUE: Bilateral common femoral, femoral, popliteal and posterior tibial, peroneal and great saphenous veins were evaluated. Flow was assessed with color Doppler, compressibility, assessment of phasic flow and augmentation response. Report prepared by Curt Villarreal, RVT FINDINGS: RIGHT: 1. Common Femoral Vein: 1.1. Compressibility - Fully compressible: Thrombus - None : Flow - Phasic: Augmentation -Normal: Reflux - . 2. Femoral Vein: 2.1. Compressibility - Fully compressible: Thrombus - None : Flow - Phasic: Augmentation -Normal: Reflux - . 3. Popliteal Vein: 3.1. Compressibility - Fully compressible: Thrombus - None : Flow - Phasic: Augmentation -Normal: Reflux - . 4. Posterior Tibial Vein: 4.1. Compressibility - poory visualized: Thrombus - : Flow - : Augmentation -: Reflux - . 5. Peroneal Vein: 5.1. Compressibility - poorly visualized: Thrombus - : Flow - : Augmentation -: Reflux - . 6. Great Saphenous Vein: 6.1. Compressibility - Fully compressible: Thrombus - None: Flow - Phasic: Augmentation - : Reflux - . LEFT: 1. Common Femoral Vein: 1.1. Compressibility - Fully compressible: Thrombus - None: Flow - Phasic: Augmentation -Normal: Reflux - . 2. Femoral Vein: 2.1. Compressibility - Fully compressible: Thrombus - None: Flow - Phasic: Augmentation -Normal: Reflux - . 3. Popliteal Vein: 3.1. Compressibility - Fully compressible: Thrombus - None : Flow - Phasic: Augmentation -Normal: Reflux - . 4. Posterior Tibial Vein: 4.1. Compressibility - Fully compressible: Thrombus - None: Flow - : Augmentation -: Reflux - . 5. Peroneal Vein: 5.1. Compressibility - Fully compressible: Thrombus - None: Flow - : Augmentation -: Reflux - . 6. Great Saphenous Vein: 6.1. Compressibility - Fully compressible: Thrombus - None: Flow - Phasic: Augmentation - : Reflux - . OTHER FINDINGS: Right: There was an enlarged lymph node noted in the groin area, which measured 4.1x0.9 cm. Left: There was an enlarged lymph node noted in the groin area, which measured 2.7x1.1 cm. IMPRESSION: Right: The posterior tibial and peroneal veins were not clearly visualized due to severe edema. No evidence of deep vein thrombosis for those clearly visualized veins of the right lower extremity. There was no superficial venous thrombosis noted. Left: No evidence of deep or superficial vein thrombosis of the left lower extremity.
[2017-08-05] MEDS: Pantoprazole 40 mg EC Tab PO SCH (10:41)
[2017-08-05] MEDS: Piperacillin/Tazobact 3.375 GM in Sodium Chloride 0.9% 100 ML IVPB SCH ×3 (12:16→23:47)
[2017-08-05] MEDS: Vancomycin 1 gm/NS 200 ml 1 GM/200 ML BAG IVPB SCH (13:35)
--- NOTE | 2017-08-05 17:22 | CARD ---
APPROVED REPORT EXAM: Two-dimensional and M-mode echocardiogram with Doppler and color Doppler. Other Information Quality : GoodRhythm : INDICATION CVA/TIA HOMELESS RISK FACTORS Hypertension Smoking M-Mode DIMENSIONS RVDd1.00 (2.1-3.2cm)Left Atrium (MM)4.69 (2.5-4.0cm) IVSd0.76 (0.7-1.1cm)Aortic Root3.67 (2.2-3.7cm) LVDd6.41 (4.0-5.6cm)Aortic Cusp Exc.1.37 (1.5-2.0cm) PWd0.73 (0.7-1.1cm)FS (%) 27 % LVDs4.68 (2.0-3.8cm)LVEF (%)50 (>50%) Mitral Valve MV E Hffikurx41.2cm/sMV A Qiscrmat34.5cm/sE/A ratio0.8 TDI E/Lateral E'0.0E/Medial E'0.0 Tricuspid Valve TR Peak [id number]/sTR Peak [id number] LEFT VENTRICLE The left ventricle is normal size. There is borderline concentric left ventricular hypertrophy. Left ventricle systolic function is borderline. Mild Septal hypokinesis Transmitral Doppler flow pattern is Grade I-abnormal relaxation pattern. RIGHT VENTRICLE The right ventricle is normal size. There is normal right ventricular wall thickness. The right ventricular systolic function is normal. ATRIA The left atrium is mildly dilated. The right atrium size is normal. AORTIC VALVE The aortic valve is normal in structure. No aortic regurgitation is present. There is no aortic valvular stenosis. MITRAL VALVE The mitral valve is mildly thickened. There is no mitral valve stenosis. Mitral regurgitation is trace. TRICUSPID VALVE The tricuspid valve is normal in structure. There is no tricuspid valve regurgitation noted. GREAT VESSELS The aortic root is normal in size. The IVC is normal in size and collapses >50% with inspiration. PERICARDIAL EFFUSION There is no pericardial effusion. <Conclusion> The left ventricle is normal size. There is borderline concentric left ventricular hypertrophy. Left ventricle systolic function is borderline. Mild Septal hypokinesis Transmitral Doppler flow pattern is Grade I-abnormal relaxation pattern.
--- NOTE | 2017-08-05 22:36 | CP.PCM.PN ---
Subjective - Date & Time of Evaluation Date of Evaluation: 08/05/17 Time of Evaluation: 12:00 - Subjective Subjective: Medical Attending Note: Patient seen and examined at bedside. Patient transferred to telemetry in light of hypertensive urgency and possible chf exacerbation. Patient [place]. Patient reports history of falls, last fall this month, and reports right hip pain for the past week. Patient has not used medications to relieve hip pain. Patient reports he ran out of his anti-hypertensive medications. Patient reports right hip pain when I raise his red leg. He cannot recall when the redness nor swelling in his legs started but is more preoccupied with the pain. patient denies fever, denies chills, denies chest pain, denies shortness of breathe, denies cough, denies abdominal pain, denies nausea, denies vomitting, reports right hip pain, swelling over bilateral lower extremities. Objective - Vital Signs/Intake and Output Vital Signs (last 24 hours): Temp Pulse Resp BP Pulse Ox 97.4 F L 82 20 156/83 H 97 08/05/17 15:09 08/05/17 16:00 08/05/17 15:09 08/05/17 15:09 08/05/17 15:09 Intake and Output: 08/05/17 08/06/17 18:59 06:59 Intake Total 780 Output Total 850 Balance -70 - Medications Medications: Current Medications Acetaminophen (Tylenol 325mg Tab) 650 mg PO Q6 PRN PRN Reason: Pain, moderate (4-7) Last Admin: 08/05/17 02:47 Dose: 650 mg Amlodipine Besylate (Norvasc) 10 mg PO DAILY [facility] Last Admin: 08/05/17 10:41 Dose: 10 mg Aspirin (Aspirin Chewable) 81 mg PO DAILY [facility] Last Admin: 08/05/17 10:36 Dose: 81 mg Furosemide (Lasix) 20 mg PO DAILY [facility] Last Admin: 08/05/17 10:36 Dose: 20 mg Heparin Sodium (Porcine) (Heparin) 5,000 units SC Q12 [facility] Last Admin: 08/05/17 21:24 Dose: 5,000 units Piperacillin Sod/Tazobactam (Sod 3.375 gm/ Sodium Chloride) 100 mls @ 100 mls/ hr IVPB Q6H [facility] Last Admin: 08/05/17 18:09 Dose: 100 mls/hr Vancomycin/Sodium Chloride (Vancomycin 1 Gm/Ns 200 Ml) 1 gm in 200 mls @ 133 mls/hr IVPB Q12H [facility] Stop: 08/10/17 13:01 Last Admin: 08/05/17 13:35 Dose: 133 mls/hr Lisinopril (Zestril) 10 mg PO DAILY [facility] Last Admin: 08/05/17 10:41 Dose: 10 mg Morphine Sulfate (Morphine) 2 mg IVP Q4 PRN PRN Reason: Pain, severe (8-10) Last Admin: 08/05/17 12:16 Dose: 2 mg Nicotine (Nicoderm Cq) 1 patch TD DAILY [facility] Last Admin: 08/05/17 10:50 Dose: 1 patch Pantoprazole Sodium (Protonix Ec Tab) 40 mg PO DAILY [facility] Last Admin: 08/05/17 10:41 Dose: 40 mg Pneumococcal Polyvalent Vaccine (Pneumovax 23 Vaccine) 0.5 ml IM .ONCE ONE Stop: 08/07/17 10:01 Rosuvastatin Calcium (Crestor) 5 mg PO [facility] Last Admin: 08/05/17 21:24 Dose: 5 mg - Labs Labs: 08/05/17 08:18 08/05/17 08:18 - Constitutional Appears: No Acute Distress, Unkempt - Head Exam Head Exam: NORMAL INSPECTION - Eye Exam Eye Exam: EOMI - ENT Exam ENT Exam: Mucous Membranes Dry - Respiratory Exam Respiratory Exam: Clear to Ausculation Bilateral, NORMAL BREATHING PATTERN. absent: Rales, Rhonchi, Wheezes, Respiratory Distress - Cardiovascular Exam Cardiovascular Exam: REGULAR RHYTHM, +S1, +S2 - GI/Abdominal Exam GI & Abdominal Exam: Soft, Normal Bowel Sounds. absent: Distended, Firm, Guarding, Rigid, Tenderness, Hypoactive Bowel Sounds, Rebound - Extremities Exam Extremities Exam: Pedal Edema, Tenderness Additional comments: erythema outlined in bilateral lower extremities; swelling over lower extremity , forefoot Difficult to palpate pulses Feet feel warm on exam Dirty Foot deformities apparent Straight leg test negative bilateral Pain over the right hip ellicted on straight left test over right lower extremity - Back Exam Back Exam: absent: CVA tenderness (L), CVA tenderness (R) - Neurological Exam Neurological Exam: Alert, Awake, Oriented x3 Assessment and Plan (1) Hip pain, right Assessment & Plan: * Hip XR (08/04/17): no demonstrated fracture or dislocation. bilateral hip degenerative changes. Nonspecific proximal right femoral well circumscribed lesion with scelrotic rim * Hip CT (08/04/17): benign sclerotic margins and well circumscribed intramedullary lesion of the proximal femur. Further imaging can be obtained * Ordered for Pelvis w/o contrast to focus on the hip * Orthopedic (Dr. Mayers) on case-->pending hip MRI for evaluation * Patient reports prior hx of falls, last fall this month * Tylenol PRN pain Status: Acute (2) Hypertensive urgency Assessment & Plan: Noncompliant Cannot remember medication names Aspirin 81mg PO daily Lisinopril 10mg PO daily Echocardiogram (08/05/17): ventricle is normal size, borderline concentric left ventricular hypertrophy, left ventricle systolic function is borderline, mild septal hypokineses, abnormal relaxation pattern Transferred to telemetry discontinue norvasc in favor of Coreg Discontinue Lasix 20mg PO daily; Start lasix 40mg IV q12 Status: Acute (3) Lower extremity edema Assessment & Plan: * Venous doppler (08/05/17): posterior tibial and peroneal veins were not clearly visualized due to severe edema. no evidence of deep vein thrombosis for those clearly visualized veins of right lower extremity. No evidence of deep or superfical vein thrombosis of the left lower extremity * Outline areas of rubor * Start Zosyn 3.375 IV Q6H (active since 08/05/17) * Start Vancomycin 1 gram IV Q 12 (active since 08/05/17) * Check vancomycin trough in afternoon 08/06/17 * Blood Cultures (08/04/17): pending * Given Maxipime on admission Status: Acute (4) Diastolic CHF Assessment & Plan: Risk factor: hypertension Check lipid panel, a1c Echocardiogram (08/05/17): ventricle is normal size, borderline concentric left ventricular hypertrophy, left ventricle systolic function is borderline, mild septal hypokineses, abnormal relaxation pattern Aspirin 81mg PO daily Crestor 5mg PO daily Start Coreg 3.125mg PO bid (discontinue norvasc in light of lower leg edema) Start Lasix 40mg IV Q 12 trend probnp Status: Suspected (5) History of CVA (cerebrovascular accident) Assessment & Plan: Aspirin 81mg PO daily Crestor 5mg POqHS Blood pressure control Status: Acute (6) Prophylactic measure Assessment & Plan: Protonix 40mg PO daily for GI ppx Heparin 5000 units subq12 for DVT ppx Physical therapy eval and treat Social work consult patient is homeless Status: Acute
[2017-08-06] MEDS: Vancomycin 1 gm/NS 200 ml 1 GM/200 ML BAG IVPB SCH ×2 (00:06→12:30)
[2017-08-06] MEDS: Piperacillin/Tazobact 3.375 GM in Sodium Chloride 0.9% 100 ML IVPB SCH ×3 (05:12→18:43)
[2017-08-06 07:56] LABS: BASO % 0.2 % (0.0-2.0); EOS # 0.3 K/uL (0.0-0.7); EOS % 6.2 % (0.0-4.0); HEMOGLOBIN 14.2 g/dL (12.0-18.0); LYMPH # 1.3 K/uL (1.0-4.3); LYMPH % 24.2 % (20.0-40.0); MEAN CELL VOLUME 90.3 fL (80.0-94.0); MEAN CORPUSCULAR HEMOGLOBIN 30.5 pg (27.0-31.0); MEAN CORPUSCULAR HGB CONC 33.8 g/dL (33.0-37.0); MEAN PLATELET VOLUME 9.2 fL (7.2-11.7); MONO # 0.6 K/uL (0.0-0.8); MONO % 11.9 % (0.0-10.0); NEUT # 3.1 K/uL (1.8-7.0); NEUT % 57.5 % (50.0-75.0); RBC 4.64 Mil/uL (4.40-5.90); WHITE BLOOD COUNT 5.4 K/uL (4.8-10.8)
[2017-08-06 08:11] LABS: ALB/GLOB RATIO 0.9 (1.0-2.1); ALBUMIN 3.4 g/dL (3.5-5.0); ALT/SGPT 47 U/L (21-72); AST/SGOT 41 U/L (17-59); BLOOD UREA NITROGEN 28 mg/dL (9-20); CALCIUM 9.2 mg/dl (8.6-10.4); GFR AFRICAN-AMERICAN > 60; GFR NON-AFRICAN AMERICAN 57
[2017-08-06] MEDS: Pantoprazole 40 mg EC Tab PO SCH (09:57)
[2017-08-06] MEDS ORDERED: MethylPREDNISolone 40 mg Vial IVP STA (10:10)
[2017-08-06] MEDS ORDERED: DiphenhydrAMINE 50 mg/ml Inj IVP STA (10:10)
--- NOTE | 2017-08-06 16:42 | CP.PCM.PN ---
<Ward Castellanos - Last Filed: 08/06/17 17:10> Subjective - Date & Time of Evaluation Date of Evaluation: 08/06/17 Time of Evaluation: 16:40 - Subjective Subjective: Progress note. Pt seen and examined at bedside. Depressed mood. Still with some right hip/leg pain. No fevers, chills, vomiting, diarrhea, cp, sob. Objective - Vital Signs/Intake and Output Vital Signs (last 24 hours): Temp Pulse Resp BP Pulse Ox 98.3 F 74 20 148/80 98 08/06/17 15:00 08/06/17 15:00 08/06/17 15:00 08/06/17 15:00 08/06/17 15:00 Intake and Output: 08/06/17 08/06/17 06:59 18:59 Intake Total 500 300 Output Total 400 2325 Balance 100 -2024 - Medications Medications: Current Medications Acetaminophen (Tylenol 325mg Tab) 650 mg PO Q6 PRN PRN Reason: Pain, moderate (4-7) Last Admin: 08/05/17 02:47 Dose: 650 mg Aspirin (Aspirin Chewable) 81 mg PO DAILY [facility] Last Admin: 08/06/17 09:57 Dose: 81 mg Carvedilol (Coreg) 3.125 mg PO BID [facility] Last Admin: 08/06/17 09:57 Dose: 3.125 mg Carvedilol (Coreg) 6.25 mg PO Q12H [facility] Furosemide (Lasix) 40 mg IVP Q12H [facility] Last Admin: 08/06/17 10:02 Dose: 40 mg Heparin Sodium (Porcine) (Heparin) 5,000 units SC Q12 [facility] Last Admin: 08/06/17 09:58 Dose: 5,000 units Piperacillin Sod/Tazobactam (Sod 3.375 gm/ Sodium Chloride) 100 mls @ 100 mls/ hr IVPB Q6H [facility] Last Admin: 08/06/17 11:29 Dose: 100 mls/hr Vancomycin/Sodium Chloride (Vancomycin 1 Gm/Ns 200 Ml) 1 gm in 200 mls @ 133 mls/hr IVPB Q12H [facility] Stop: 08/10/17 13:01 Last Admin: 08/06/17 12:30 Dose: 133 mls/hr Ketorolac Tromethamine (Toradol) 30 mg IVP Q6 [facility] Stop: 08/08/17 16:35 Lisinopril (Zestril) 10 mg PO DAILY [facility] Last Admin: 08/06/17 09:57 Dose: 10 mg Nicotine (Nicoderm Cq) 2 patch TD DAILY [facility] Pantoprazole Sodium (Protonix Ec Tab) 40 mg PO DAILY [facility] Last Admin: 08/06/17 09:57 Dose: 40 mg Pneumococcal Polyvalent Vaccine (Pneumovax 23 Vaccine) 0.5 ml IM .ONCE ONE Stop: 08/07/17 10:01 Rosuvastatin Calcium (Crestor) 5 mg PO [facility] Last Admin: 08/05/17 21:24 Dose: 5 mg Saccharomyces Boulardii (Florastor) 250 mg PO BID [facility] - Labs Labs: 08/06/17 07:37 08/06/17 07:37 - Constitutional Appears: Non-toxic, No Acute Distress, Unkempt - Head Exam Head Exam: ATRAUMATIC, NORMAL INSPECTION, NORMOCEPHALIC - Eye Exam Eye Exam: EOMI - ENT Exam ENT Exam: Mucous Membranes Moist - Neck Exam Neck Exam: Full ROM, Normal Inspection - Respiratory Exam Respiratory Exam: NORMAL BREATHING PATTERN. absent: Respiratory Distress - Cardiovascular Exam Cardiovascular Exam: REGULAR RHYTHM, +S1, +S2 - GI/Abdominal Exam GI & Abdominal Exam: Soft, Normal Bowel Sounds. absent: Tenderness - Extremities Exam Extremities Exam: absent: Normal Inspection Additional comments: some PVD and cellulitis b/l; improving significantly today. - Back Exam Back Exam: NORMAL INSPECTION - Neurological Exam Neurological Exam: Alert, Awake, CN II-XII Intact. absent: Oriented x3 - Psychiatric Exam Psychiatric exam: Depressed, Flat Affect - Skin Skin Exam: Dry, Intact, Normal Color, Warm Assessment and Plan - Assessment and Plan (Free Text) Assessment: 1. Hypertensive urgency - asa 81 mg po daily -coreg 3.125 po bid -increasing to coreg 6.25 po bid tomorrow. 2. Right hip pain. -orthopedic surgery consult. Dr. Mayers. recs appreciated. -hip mri pending -hip x ray shows nonspecific lesion right femoral. Dr. Mayers has commented that this is a benign lesion. -ortho has signed off case. -toradol 30 mg IV q 6 hrs for pain, stop after 2 days. 3. LE edema/cellulitis -lasix 40 mg IV q 12 hrs. -venous dopplers showed no evidence of DVT in bilateral lower extremities -arterial dopplers pending -vanco IV, day 2 -zosyn IV, day 2 -cultures negative x 24 hrs. -will check vanco trough. -PT 4. Elevated BNP -will follow up bnp tomorrow 5. Hypokalemia -resolved. 6. Hx of tobacco abuse -nicotine patch daily 7. Homeless -social work consult. 8. GI/DVT ppx -protonix daily -heparin sc discussed with Dr. Richey. <Dominique Richey V - Last Filed: 08/07/17 23:40> Objective - Vital Signs/Intake and Output Vital Signs (last 24 hours): Temp Pulse Resp BP Pulse Ox 98.3 F 74 20 148/80 98 08/06/17 15:00 08/06/17 15:00 08/06/17 15:00 08/06/17 15:00 08/06/17 15:00 Intake and Output: 08/06/17 08/07/17 18:59 06:59 Intake Total 300 Output Total 2325 Balance -2024 - Medications Medications: Current Medications Acetaminophen (Tylenol 325mg Tab) 650 mg PO Q6 PRN PRN Reason: Pain, moderate (4-7) Last Admin: 08/05/17 02:47 Dose: 650 mg Aspirin (Aspirin Chewable) 81 mg PO DAILY [facility] Last Admin: 08/06/17 09:57 Dose: 81 mg Carvedilol (Coreg) 6.25 mg PO Q12H [facility] Furosemide (Lasix) 40 mg IVP Q12H [facility] Last Admin: 08/06/17 10:02 Dose: 40 mg Heparin Sodium (Porcine) (Heparin) 5,000 units SC Q12 [facility] Last Admin: 08/06/17 09:58 Dose: 5,000 units Piperacillin Sod/Tazobactam (Sod 3.375 gm/ Sodium Chloride) 100 mls @ 100 mls/ hr IVPB Q6H [facility] Last Admin: 08/06/17 18:43 Dose: 100 mls/hr Vancomycin/Sodium Chloride (Vancomycin 1 Gm/Ns 200 Ml) 1 gm in 200 mls @ 133 mls/hr IVPB Q12H [facility] Stop: 08/10/17 13:01 Last Admin: 08/06/17 12:30 Dose: 133 mls/hr Ketorolac Tromethamine (Toradol) 30 mg IVP Q6 [facility] Stop: 08/08/17 16:35 Last Admin: 08/06/17 18:43 Dose: 30 mg Lisinopril (Zestril) 10 mg PO DAILY [facility] Last Admin: 08/06/17 09:57 Dose: 10 mg Nicotine (Nicoderm Cq) 2 patch TD DAILY [facility] Pantoprazole Sodium (Protonix Ec Tab) 40 mg PO DAILY [facility] Last Admin: 08/06/17 09:57 Dose: 40 mg Pneumococcal Polyvalent Vaccine (Pneumovax 23 Vaccine) 0.5 ml IM .ONCE ONE Stop: 08/07/17 10:01 Rosuvastatin Calcium (Crestor) 5 mg PO HS [facility] Last Admin: 08/05/17 21:24 Dose: 5 mg Saccharomyces Boulardii (Florastor) 250 mg PO BID [facility] Last Admin: 08/06/17 18:42 Dose: 250 mg - Labs Labs: 08/06/17 07:37 08/06/17 07:37 Assessment and Plan (1) Hip pain, right Status: Acute (2) Hypertensive urgency Status: Acute (3) Lower extremity edema Status: Acute (4) Diastolic CHF Status: Suspected (5) History of CVA (cerebrovascular accident) Status: Acute (6) Prophylactic measure Status: Acute Attending/Attestation - Attestation I have personally seen and examined this patient.: Yes I have fully participated in the care of the patient.: Yes I have reviewed all pertinent clinical information, including history, physical exam and plan: Yes Notes (Text): This is late computer entry for 08/06/17. Patient seen, examined and case discussed with medical insurance claims specialist. Patient is aware he is at the hospital, recognizes his name, gives incorrect age : reports he is in his 30s. Patient reports right hip pain. Patient is pending Hip MRI, given it is Monday and MRI is closed, will follow-up for Monday. Patient's rubor is almost resolved over b/l lower extremities and edema has also improved as well. Patient has not worked with physical therapy yet given uncontrolled blood pressure from before. Patient's blood pressure medications adjusted. Increased Coreg 6.25mg PO BID. Patient is pending Vancomycin trough for tonight. Patient is on IV abx to cover for cellulitis. Patient is also pending arterial doppler given the swelling makes it difficult to appreciate palpable pulses but feet remain warm. Assessment/Plan (1) Hip pain, right Assessment & Plan: * Hip XR (08/04/17): no demonstrated fracture or dislocation. bilateral hip degenerative changes. Nonspecific proximal right femoral well circumscribed lesion with scelrotic rim * Hip CT (08/04/17): benign sclerotic margins and well circumscribed intramedullary lesion of the proximal femur. Further imaging can be obtained * Ordered for Pelvis w/o contrast to focus on the hip * Orthopedic (Dr. Mayers) on case-->pending hip MRI for evaluation * Patient reports prior hx of falls, last fall this month * Tordaol 30mg IVp Q6H pain for 2 days Status: Acute (2) Hypertensive urgency Assessment & Plan: * Blood pressure better controlled * Noncompliant; patient had ran out of medications and is homeless * Cannot remember medication names * Aspirin 81mg PO daily * Lisinopril 10mg PO daily * Echocardiogram (08/05/17): ventricle is normal size, borderline concentric left ventricular hypertrophy, left ventricle systolic function is borderline, mild septal hypokineses, abnormal relaxation pattern * Transferred to telemetry 08/05/17 * discontinue norvasc in favor of Coreg given side Edema * Increased Coreg 6.25mg PO BID * Discontinue Lasix 20mg PO daily; Start lasix 40mg IV q12 Status: Acute (3) Lower extremity edema Assessment & Plan: * Venous doppler (08/05/17): posterior tibial and peroneal veins were not clearly visualized due to severe edema. no evidence of deep vein thrombosis for those clearly visualized veins of right lower extremity. No evidence of deep or superfical vein thrombosis of the left lower extremity * Outline areas of rubor which has almost resolved * Start Zosyn 3.375 IV Q6H (active since 08/05/17) * Start Vancomycin 1 gram IV Q 12 (active since 08/05/17) * Check vancomycin trough in afternoon 08/06/17-->pending * Blood Cultures (08/04/17): pending * Given Maxipime on admission * Pending arterial dopplers Status: Acute (4) Diastolic CHF Assessment & Plan: * Risk factor: hypertension * Check lipid panel, a1c * Echocardiogram (08/05/17): ventricle is normal size, borderline concentric left ventricular hypertrophy, left ventricle systolic function is borderline, mild septal hypokineses, abnormal relaxation pattern * Aspirin 81mg PO daily * Crestor 5mg PO daily * Increase Coreg 6.25mg PO bid * (discontinue norvasc in light of lower leg edema) * Start Lasix 40mg IV Q 12 * trend probnp Status: Suspected (5) History of CVA (cerebrovascular accident) Assessment & Plan: * Aspirin 81mg PO daily * Crestor 5mg POqHS * Blood pressure control Status: Chronic (6) Prophylactic measure Assessment & Plan: * Protonix 40mg PO daily for GI ppx * Heparin 5000 units subq12 for DVT ppx * Physical therapy eval and treat * Social work consult patient is homeless * Florastor 250mg PO BID Status: Acute
[2017-08-06] MEDS: Saccharomyces Boulardi 250 mg Cap PO SCH (18:42)
[2017-08-07] MEDS: Piperacillin/Tazobact 3.375 GM in Sodium Chloride 0.9% 100 ML IVPB SCH ×3 (00:08→11:22)
[2017-08-07] MEDS: Vancomycin 1 gm/NS 200 ml 1 GM/200 ML BAG IVPB SCH (01:41)
[2017-08-07 07:29] LABS: BASO % 0.2 % (0.0-2.0); EOS # 0.1 K/uL (0.0-0.7); EOS % 0.7 % (0.0-4.0); HEMOGLOBIN 14.6 g/dL (12.0-18.0); LYMPH # 1.4 K/uL (1.0-4.3); LYMPH % 15.2 % (20.0-40.0); MEAN CELL VOLUME 90.4 fL (80.0-94.0); MEAN CORPUSCULAR HEMOGLOBIN 30.7 pg (27.0-31.0); MEAN PLATELET VOLUME 9.3 fL (7.2-11.7); MONO % 11.6 % (0.0-10.0); NEUT # 6.6 K/uL (1.8-7.0); NEUT % 72.3 % (50.0-75.0); NRBC % 0.1 % (0.0-2.0); RBC 4.75 Mil/uL (4.40-5.90); RED CELL DISTRIBUTION WIDTH 14.7 % (11.5-14.5); WHITE BLOOD COUNT 9.1 K/uL (4.8-10.8)
[2017-08-07 07:53] LABS: ALBUMIN 3.5 g/dL (3.5-5.0); CALCIUM 8.8 mg/dl (8.6-10.4)
[2017-08-07] MEDS ORDERED: Influenza Vaccine 60 mcg/0.5 mL SYR (4YR UP) IM ONE (10:00)
[2017-08-07] MEDS ORDERED: Pneumococcal 23-Valent Vaccine IM ONE (10:00)
--- NOTE | 2017-08-07 10:54 | MRI ---
MRI right hip History: Hip pain. Intramedullary lesion. Comparison: CT scan dated 08/04/2017 Technique: Multi-echo multiplanar sequences were performed through the right hip without the use of intravenous contrast. Findings: Right hip: Moderate degenerative changes of the right hip with joint space narrowing most prominent at the superior aspect of the right femoral head with associated cartilage thinning and signal change within the bony acetabulum and superior femoral head with decreased T1 and increased STIR signal suggestive for osteochondral change. In addition, there is a suggestion of some mild 2-3 millimeter subchondral cyst formation within the superior bony acetabulum. Adjacent degenerative fraying and/or partial tearing of the right anterior acetabular labrum. Moderate right hip joint effusion. Right iliopsoas, hamstring tendon origin, and rectus femoris tendon attachments appear preserved. Partial tearing and fraying with increased signal seen within the anterior right gluteus tendon attachments on the greater trochanter suggestive for partial tearing and or moderate to severe tendinopathy. Adjacent mild reactive edema within the bone at that level. Again identified within the proximal medullary cavity of the right proximal femur, is an intramedullary lesion. The lesion measures 1.5 x 1.3 x 1.8 centimeters abutting the posterior cortex of the proximal femur. The lesion demonstrates decreased T1 signal with increased STIR signal. In correlation with the recent CT scan dated 08/04/2017, the lesion demonstrates thin peripheral sclerotic well-defined margins. This is of uncertain clinical etiology and may represent a benign bone lesion. Additional etiologies not excluded. Continued interval followup and or correlation with bone scan may be helpful if clinically indicated. Clinical correlation. Heterogeneity of the visualized marrow with patchy decreased T1 signal suggestive for hematopoietic marrow reconversion. Mild degenerative changes noted in the lower lumbar spine. Impression: 1. Moderate asymmetric right hip joint effusion. This may be the sequelae of underlying acute inflammatory and or infectious changes. Clinical correlation. 2. Moderate degenerative changes of the right hip with joint space narrowing most prominent at the superior aspect of the right femoral head with associated cartilage thinning and signal change within the bony acetabulum and superior femoral head with decreased T1 and increased STIR signal suggestive for osteochondral change. In addition, there is a suggestion of some mild 2-3 millimeter subchondral cyst formation within the superior bony acetabulum. 3. Adjacent degenerative fraying and/or partial tearing of the right anterior acetabular labrum. 4. Partial tearing and fraying with increased signal seen within the anterior right gluteus tendon attachments on the greater trochanter suggestive for partial tearing and or moderate to severe tendinopathy. Adjacent mild reactive edema within the bone at that level. 5. Again identified within the proximal medullary cavity of the right proximal femur, is an intramedullary lesion. The lesion measures 1.5 x 1.3 x 1.8 centimeters abutting the posterior cortex of the proximal femur. The lesion demonstrates decreased T1 signal with increased STIR signal. In correlation with the recent CT scan dated 08/04/2017, the lesion demonstrates thin peripheral sclerotic well-defined margins. This is of uncertain clinical etiology and may represent a benign bone lesion. Additional etiologies not excluded. Continued interval followup and or correlation with bone scan may be helpful if clinically indicated. Clinical correlation. 6. Heterogeneity of the visualized marrow with patchy decreased T1 signal suggestive for hematopoietic marrow reconversion. 7. Mild degenerative changes noted in the lower lumbar spine.
[2017-08-07] MEDS: Saccharomyces Boulardi 250 mg Cap PO SCH ×2 (11:00→17:14)
[2017-08-07] MEDS: Pantoprazole 40 mg EC Tab PO SCH (11:00)
--- NOTE | 2017-08-07 16:14 | CP.PCM.PN ---
Subjective - Date & Time of Evaluation Date of Evaluation: 08/07/17 Time of Evaluation: 07:50 - Subjective Subjective: Patient seen and examined at bedside. Patient resting comfortably in bed with no new complaints at this time. Patient still complaining of right leg pain around the mid/proximal femur. Otherwise patient says he feels well and denies fever, chills, headache, dizzinesss, chest pain, SOB, abdominal pain, n/v/d/c, calf pain, and LE swelling. Objective - Vital Signs/Intake and Output Vital Signs (last 24 hours): Temp Pulse Resp BP Pulse Ox 97.7 F 79 18 154/86 H 100 08/07/17 07:45 08/07/17 07:45 08/07/17 07:45 08/07/17 11:24 08/07/17 07:45 Intake and Output: 08/07/17 08/07/17 06:59 18:59 Intake Total 540 Output Total 600 Balance -60 - Medications Medications: Current Medications Acetaminophen (Tylenol 325mg Tab) 650 mg PO Q6 PRN PRN Reason: Pain, moderate (4-7) Last Admin: 08/05/17 02:47 Dose: 650 mg Aspirin (Aspirin Chewable) 81 mg PO DAILY [facility] Last Admin: 08/07/17 11:00 Dose: 81 mg Carvedilol (Coreg) 6.25 mg PO Q12H [facility] Last Admin: 08/07/17 05:35 Dose: 6.25 mg Cephalexin Monohydrate (Keflex) 250 mg PO Q6 [facility] PRN Reason: Protocol Heparin Sodium (Porcine) (Heparin) 5,000 units SC Q12 [facility] Last Admin: 08/07/17 11:00 Dose: 5,000 units Ketorolac Tromethamine (Toradol) 30 mg IVP Q6 [facility] Stop: 08/08/17 16:35 Last Admin: 08/07/17 05:32 Dose: 30 mg Lisinopril (Zestril) 10 mg PO DAILY [facility] Last Admin: 08/07/17 11:00 Dose: 10 mg Nicotine (Nicoderm Cq) 2 patch TD DAILY [facility] Last Admin: 08/07/17 11:00 Dose: 2 patch Pantoprazole Sodium (Protonix Ec Tab) 40 mg PO DAILY [facility] Last Admin: 08/07/17 11:00 Dose: 40 mg Rosuvastatin Calcium (Crestor) 5 mg PO HS [facility] Last Admin: 08/06/17 22:15 Dose: 5 mg Saccharomyces Boulardii (Florastor) 250 mg PO BID [facility] Last Admin: 08/07/17 11:00 Dose: 250 mg Torsemide (Demadex) 20 mg PO DAILY [facility] - Labs Labs: 08/07/17 07:08 08/07/17 07:08 - Constitutional Appears: Non-toxic, No Acute Distress - Head Exam Head Exam: ATRAUMATIC, NORMAL INSPECTION, NORMOCEPHALIC - Eye Exam Eye Exam: EOMI, Normal appearance, PERRL - ENT Exam ENT Exam: Mucous Membranes Moist - Respiratory Exam Respiratory Exam: Clear to Ausculation Bilateral, NORMAL BREATHING PATTERN. absent: Accessory Muscle Use, Rales, Rhonchi, Wheezes, Respiratory Distress - Cardiovascular Exam Cardiovascular Exam: REGULAR RHYTHM, RRR, +S1, +S2. absent: Bradycardia, Tachycardia, Diastolic murmur, Gallop, Rubs, Murmur - GI/Abdominal Exam GI & Abdominal Exam: Soft, Normal Bowel Sounds. absent: Distended, Tenderness - Extremities Exam Extremities Exam: Normal Capillary Refill, Tenderness (right proximal thigh ). absent: Calf Tenderness, Pedal Edema - Neurological Exam Neurological Exam: Alert, Awake, Oriented x3 - Psychiatric Exam Psychiatric exam: Normal Affect, Normal Mood - Skin Skin Exam: Dry, Intact, Normal Color, Warm Assessment and Plan (1) Hypertensive urgency Status: Acute (2) Hip pain, right Status: Acute (3) Lower extremity edema Status: Acute (4) Elevated brain natriuretic peptide (BNP) level Status: Acute (5) Hypokalemia Status: Acute (6) Tobacco abuse Status: Acute (7) Prophylactic measure Status: Acute - Assessment and Plan (Free Text) Plan: Disposition: Patient ready for discharge to [facility] per PT recs, however patient does not have insurance so he will need to stay here until cleared by PT (1) Hypertensive urgency Assessment and Plan: * BP 208/137 on arrival, down to 151/93 * Vitals Q4H * CXR: pending * Echo (04/16/17): EF 60%, concentric LVH, impaired diastolic relaxation * repeat echo unchanged from previous * Started BP meds from last admission: lisinopril 10 mg QD * Started coreg * discontinued amlodipine 10 mg QD * Torosemide * HHD with Na restriction Status: Acute (2) Hip pain, right Assessment and Plan: * Hip XR: no demonstrated fracture or dislocation. bilateral hip degenerative changes. Nonspecific proximal right femoral well circumscribed lesion with scelrotic rim * Hip CT: benign sclerotic margins and well circumscribed intramedullary lesion of the proximal femur * Dr Mayers consulted - no intervention planned at this time, cleared for discharge from orthopedic perspective * Hip MRI: 1. Moderate asymmetric right hip joint effusion. This may be the sequelae of underlying acute inflammatory and or infectious changes. 2. Moderate degenerative changes of the right hip with joint space narrowing most prominent at the superior aspect of the right femoral head with associated cartilage thinning and signal change within the bony acetabulum and superior femoral head with decreased T1 and increased STIR signal suggestive for osteochondral change. In addition, there is a suggestion of some mild 2-3 millimeter subchondral cyst formation within the superior bony acetabulum. 3. Adjacent degenerative fraying and/or partial tearing of the right anterior acetabular labrum. 4. Partial tearing and fraying with increased signal seen within the anterior right gluteus tendon attachments on the greater trochanter suggestive for partial tearing and or moderate to severe tendinopathy. Adjacent mild reactive edema within the bone at that level. 5. Again identified within the proximal medullary cavity of the right proximal femur, is an intramedullary lesion. The lesion measures 1.5 x 1.3 x 1.8 centimeters abutting the posterior cortex of the proximal femur. The lesion demonstrates decreased T1 signal with increased STIR signal. In correlation with the recent CT scan dated 08/04/2017, the lesion demonstrates thin peripheral sclerotic well -defined margins. This is of uncertain clinical etiology and may represent a benign bone lesion. Additional etiologies not excluded. Continued interval followup and or correlation with bone scan may be helpful if clinically indicated. Clinical correlation. 6. Heterogeneity of the visualized marrow with patchy decreased T1 signal suggestive for hematopoietic marrow reconversion. 7. Mild degenerative changes noted in the lower lumbar spine. * Tylenol PRN pain Status: Acute (3) Lower extremity edema Assessment and Plan: * Bilateral * Erythema present but non painful * No leukocytosis * Afebrile * Likely 2/2 diastolic dysfunction, unlikely cellulitis * Echo (04/16/17): EF 60%, concentric LVH, impaired diastolic relaxation * most recent echo unchanged * Venous doppler (08/05/17): posterior tibial and peroneal veins were not clearly visualized due to severe edema. no evidence of deep vein thrombosis for those clearly visualized veins of right lower extremity. No evidence of deep or superfical vein thrombosis of the left lower extremity * Blood cultures negative * Started Torosemide in favor of lasix * Will give 5 days of antibiotics total - currently on PO keflex Status: Acute (4) Elevated brain natriuretic peptide (BNP) level Assessment and Plan: * likely due to hypertensive cardiomyopathy * BP: 208/137 on arrival, trending down * CXR: pending * Echo (04/16/17): EF 60%, concentric LVH, impaired diastolic relaxation * most recent unchanged * Started Torosemide in favor of lasix * Coreg * ASA * Lisinopril Status: Acute (5) Hypokalemia - resolved Assessment and Plan: * Monitor with AM labs Status: Acute (6) Tobacco abuse Assessment and Plan: * Smoking cessation counseling * Nicoderm patch Status: Acute Priority: High (7) Prophylactic measure Assessment and Plan: * DVT: heparin * GI: Protonix Status: Acute
[2017-08-08] MEDS: Saccharomyces Boulardi 250 mg Cap PO SCH ×2 (09:56→17:27)
[2017-08-08] MEDS: Pantoprazole 40 mg EC Tab PO SCH (09:56)
--- NOTE | 2017-08-08 14:21 | CP.PCM.PN ---
Subjective - Date & Time of Evaluation Date of Evaluation: 08/08/17 Time of Evaluation: 07:40 - Subjective Subjective: Patient seen and examined at bedside. Patient resting comfortably in bed with no new complaints at this time. Patient is still having pain in his leg and feels somewhat unstable on his feet. He is tolerating his diet. Patient otherwise denies dizziness, headache, chest pain, SOB, cough, palpitations, abdominal pain, n/v/d/c, calf pain, and lower extremity swelling. Objective - Vital Signs/Intake and Output Vital Signs (last 24 hours): Temp Pulse Resp BP Pulse Ox 97.6 F 60 20 167/111 H 100 08/08/17 08:10 08/08/17 08:10 08/08/17 08:10 08/08/17 08:10 08/08/17 08:10 - Medications Medications: Current Medications Acetaminophen (Tylenol 325mg Tab) 650 mg PO Q6 PRN PRN Reason: Pain, moderate (4-7) Last Admin: 08/05/17 02:47 Dose: 650 mg Aspirin (Aspirin Chewable) 81 mg PO DAILY [facility] Last Admin: 08/08/17 09:56 Dose: 81 mg Carvedilol (Coreg) 6.25 mg PO Q12H [facility] Last Admin: 08/08/17 05:08 Dose: 6.25 mg Cephalexin Monohydrate (Keflex) 250 mg PO Q6 [facility] PRN Reason: Protocol Last Admin: 08/08/17 12:15 Dose: 250 mg Heparin Sodium (Porcine) (Heparin) 5,000 units SC Q12 [facility] Last Admin: 08/08/17 09:55 Dose: 5,000 units Ketorolac Tromethamine (Toradol) 30 mg IVP Q6 [facility] Stop: 08/08/17 16:35 Last Admin: 08/08/17 13:29 Dose: 30 mg Lisinopril (Zestril) 10 mg PO DAILY [facility] Last Admin: 08/08/17 09:55 Dose: 10 mg Nicotine (Nicoderm Cq) 2 patch TD DAILY [facility] Last Admin: 08/08/17 09:55 Dose: 2 patch Pantoprazole Sodium (Protonix Ec Tab) 40 mg PO DAILY [facility] Last Admin: 08/08/17 09:56 Dose: 40 mg Rosuvastatin Calcium (Crestor) 5 mg PO HS [facility] Last Admin: 08/07/17 21:28 Dose: 5 mg Saccharomyces Boulardii (Florastor) 250 mg PO BID [facility] Last Admin: 08/08/17 09:56 Dose: 250 mg Torsemide (Demadex) 20 mg PO DAILY [facility] Last Admin: 08/08/17 09:55 Dose: 20 mg - Labs Labs: 08/07/17 07:08 08/07/17 07:08 - Additional Findings Additional findings: - Constitutional Appears: Non-toxic, No Acute Distress, Unkempt - Head Exam Head Exam: ATRAUMATIC, NORMAL INSPECTION, NORMOCEPHALIC - Eye Exam Eye Exam: EOMI, Normal appearance, PERRL - ENT Exam ENT Exam: Mucous Membranes Moist - Respiratory Exam Respiratory Exam: Clear to Ausculation Bilateral, NORMAL BREATHING PATTERN. absent: Accessory Muscle Use, Rales, Rhonchi, Wheezes, Respiratory Distress - Cardiovascular Exam Cardiovascular Exam: REGULAR RHYTHM, RRR, +S1, +S2. absent: Bradycardia, Tachycardia, Diastolic murmur, Gallop, Rubs, Murmur - GI/Abdominal Exam GI & Abdominal Exam: Soft, Normal Bowel Sounds. absent: Distended, Tenderness - Extremities Exam Extremities Exam: Normal Capillary Refill, Tenderness (right proximal thigh ). absent: Calf Tenderness, Pedal Edema - Neurological Exam Neurological Exam: Alert, Awake, Oriented x3 - Psychiatric Exam Psychiatric exam: Normal Affect, Normal Mood - Skin Skin Exam: Dry, Intact, Normal Color, Warm Assessment and Plan (1) Hypertensive urgency Status: Acute (2) Hip pain, right Status: Acute (3) Lower extremity edema Status: Acute (4) Elevated brain natriuretic peptide (BNP) level Status: Acute (5) Hypokalemia Status: Acute (6) Tobacco abuse Status: Acute (7) Prophylactic measure Status: Acute - Assessment and Plan (Free Text) Plan: Disposition: Patient ready for discharge to [facility] per PT recs, however patient does not have insurance so he will need to stay here until cleared by PT (1) Hypertensive urgency * BP 208/137 on arrival, down to 151/93 * Vitals Q4H * CXR: pending * Echo (04/16/17): EF 60%, concentric LVH, impaired diastolic relaxation * repeat echo unchanged from previous * HHD with Na restriction Meds * Lisinopril 10 mg QD * Coreg 6.25 mg PO Q12 * Torosemide * discontinued amlodipine 10 mg QD because of lower extremity swelling (2) Hip pain, right * Dr Mayers consulted - no intervention planned at this time, cleared for discharge from orthopedic perspective Imaging * Hip XR: no demonstrated fracture or dislocation. bilateral hip degenerative changes. Nonspecific proximal right femoral well circumscribed lesion with scelrotic rim * Hip CT: benign sclerotic margins and well circumscribed intramedullary lesion of the proximal femur * Hip MRI: 1. Moderate asymmetric right hip joint effusion. This may be the sequelae of underlying acute inflammatory and or infectious changes. 2. Moderate degenerative changes of the right hip with joint space narrowing most prominent at the superior aspect of the right femoral head with associated cartilage thinning and signal change within the bony acetabulum and superior femoral head with decreased T1 and increased STIR signal suggestive for osteochondral change. In addition, there is a suggestion of some mild 2-3 millimeter subchondral cyst formation within the superior bony acetabulum. 3. Adjacent degenerative fraying and/or partial tearing of the right anterior acetabular labrum. 4. Partial tearing and fraying with increased signal seen within the anterior right gluteus tendon attachments on the greater trochanter suggestive for partial tearing and or moderate to severe tendinopathy. Adjacent mild reactive edema within the bone at that level. 5. Again identified within the proximal medullary cavity of the right proximal femur, is an intramedullary lesion. The lesion measures 1.5 x 1.3 x 1.8 centimeters abutting the posterior cortex of the proximal femur. The lesion demonstrates decreased T1 signal with increased STIR signal. In correlation with the recent CT scan dated 08/04/2017, the lesion demonstrates thin peripheral sclerotic well -defined margins. This is of uncertain clinical etiology and may represent a benign bone lesion. Additional etiologies not excluded. Continued interval followup and or correlation with bone scan may be helpful if clinically indicated. Clinical correlation. 6. Heterogeneity of the visualized marrow with patchy decreased T1 signal suggestive for hematopoietic marrow reconversion. 7. Mild degenerative changes noted in the lower lumbar spine. Meds * Toradol PRN pain (3) Lower extremity edema * Bilateral * Erythema present but non painful * No leukocytosis * Afebrile * Likely 2/2 diastolic dysfunction, unlikely cellulitis * Echo (04/16/17): EF 60%, concentric LVH, impaired diastolic relaxation * most recent echo unchanged * Venous doppler (08/05/17): posterior tibial and peroneal veins were not clearly visualized due to severe edema. no evidence of deep vein thrombosis for those clearly visualized veins of right lower extremity. No evidence of deep or superfical vein thrombosis of the left lower extremity * Blood cultures negative * Started Torosemide in favor of lasix * Will give 5 days of antibiotics total (until 08/10) - currently on PO keflex * Florastor 250 mg PO BID (4) Elevated brain natriuretic peptide (BNP) level * likely due to hypertensive cardiomyopathy * BP: 208/137 on arrival, trending down * CXR: pending * Echo (04/16/17): EF 60%, concentric LVH, impaired diastolic relaxation * most recent unchanged * Started Torosemide in favor of lasix * Coreg * ASA * Lisinopril (5) Hypokalemia - resolved * Monitor with AM labs (6) Tobacco abuse * Smoking cessation counseling * Nicoderm patch (7) Prophylactic measure * DVT: heparin * GI: Protonix
[2017-08-08 14:25] LABS: ALBUMIN 3.8 g/dL (3.5-5.0); ALT/SGPT 62 U/L (21-72); AST/SGOT 70 U/L (17-59); BLOOD UREA NITROGEN 53 mg/dL (9-20); CALCIUM 9.1 mg/dl (8.6-10.4); GFR AFRICAN-AMERICAN > 60; GFR NON-AFRICAN AMERICAN 57
--- NOTE | 2017-08-09 06:59 | VASCLAB ---
STUDY DESCRIPTION: HISTORY: Leg pain PRIORS: None. TECHNIQUE: Pulse volume recording waveforms and segmental pressures of bilateral lower extremities at multiple levels were obtained. Ankle Brachial Indices (ABIs) were calculated. Report prepared by MELINA Marlow, RVT RIGHT LOWER EXTREMITY: * Brachial artery: Pressure - 163 mmHg. * High thigh: Pressure - 194 mmHg: Ratio - 1.19: PVR waveform - Pulsatile * Low thigh: Pressure - 214 mmHg: Ratio - 1.31 PVR waveform: Pulsatile * Calf: Pressure - 162 mmHg: Ratio - 0.99 PVR waveform: Pulsatile * Posterior tibial Artery: Pressure - 173 mmHg: Ratio - 1.06 PVR waveform: Pulsatile * Dorsalis pedis Artery: Pressure - 154 mmHg: Ratio - 0.94 PVR waveform: Pulsatile * Great toe: Pressure - mmHg: Ratio - PVR waveform: Ankle brachial index (TE): 1.06 LEFT LOWER EXTREMITY: * Brachial artery: Pressure - 158 mmHg. * High thigh: Pressure - 184 mmHg: Ratio - 1.13: PVR waveform - Pulsatile * Low thigh: Pressure - 182 mmHg: Ratio - 1.12 PVR waveform: Pulsatile * Calf: Pressure - 138 mmHg: Ratio - 0.58 PVR waveform: Pulsatile * Posterior tibial Artery: Pressure - 118 mmHg: Ratio - 0.72 PVR waveform: Pulsatile * Dorsalis pedis Artery: Pressure - 134 mmHg: Ratio - 0.82 PVR waveform: Pulsatile * Great toe: Pressure - mmHg: Ratio - PVR waveform: Ankle brachial index (TE): 0.82 OTHER FINDINGS: Right: Left: IMPRESSION: Right: This exam reveals mildly decreased perfusion of both lower extremities, noted at the popliteal artery level. Left: This exam reveals mildly decreased perfusion of the left lower extremities, noted at the popliteal and tibial artery level.
[2017-08-09 07:39] LABS: BASO % 0.5 % (0.0-2.0); EOS # 0.4 K/uL (0.0-0.7); HEMOGLOBIN 14.2 g/dL (12.0-18.0); LYMPH # 1.2 K/uL (1.0-4.3); LYMPH % 23.3 % (20.0-40.0); MEAN CELL VOLUME 91.1 fL (80.0-94.0); MEAN CORPUSCULAR HEMOGLOBIN 30.8 pg (27.0-31.0); MEAN CORPUSCULAR HGB CONC 33.9 g/dL (33.0-37.0); MEAN PLATELET VOLUME 9.4 fL (7.2-11.7); MONO # 0.9 K/uL (0.0-0.8); MONO % 18.4 % (0.0-10.0); NEUT # 2.6 K/uL (1.8-7.0); NEUT % 49.8 % (50.0-75.0); NRBC % 0.1 % (0.0-2.0); RBC 4.61 Mil/uL (4.40-5.90); RED CELL DISTRIBUTION WIDTH 14.7 % (11.5-14.5); WHITE BLOOD COUNT 5.1 K/uL (4.8-10.8)
--- NOTE | 2017-08-09 08:30 | CP.PCM.PN ---
<Nila Alexis - Last Filed: 08/09/17 15:45> Subjective - Date & Time of Evaluation Date of Evaluation: 08/09/17 Time of Evaluation: 08:24 - Subjective Subjective: Patient seen and examined at bedside. Patient is resting comfortably in bed with no new complaints at this time. Patient is still having leg pain, however this is controlled with the pain meds he is on. Patient is tolerating his diet and ambulating to the bathroom without difficulty. Patient denies dizziness, headache, chest pain, SOB, cough, palpitations, abdominal pain, n/v/d/c, calf pain, and lower extremity swelling. Objective - Vital Signs/Intake and Output Vital Signs (last 24 hours): Temp Pulse Resp BP Pulse Ox 97.4 F L 73 20 165/95 H 96 08/09/17 04:27 08/09/17 04:27 08/09/17 04:27 08/09/17 04:27 08/09/17 04:27 Intake and Output: 08/09/17 08/09/17 06:59 18:59 Output Total 500 Balance -500 - Medications Medications: Current Medications Aspirin (Aspirin Chewable) 81 mg PO DAILY [facility] Last Admin: 08/08/17 09:56 Dose: 81 mg Carvedilol (Coreg) 6.25 mg PO Q12H [facility] Last Admin: 08/09/17 06:25 Dose: 6.25 mg Cephalexin Monohydrate (Keflex) 250 mg PO Q6 [facility] PRN Reason: Protocol Stop: 08/10/17 20:00 Last Admin: 08/09/17 06:25 Dose: 250 mg Heparin Sodium (Porcine) (Heparin) 5,000 units SC Q12 [facility] Last Admin: 08/08/17 22:31 Dose: 5,000 units Lisinopril (Zestril) 10 mg PO DAILY [facility] Last Admin: 08/08/17 09:55 Dose: 10 mg Nicotine (Nicoderm Cq) 2 patch TD DAILY [facility] Last Admin: 08/08/17 09:55 Dose: 2 patch Pantoprazole Sodium (Protonix Ec Tab) 40 mg PO DAILY [facility] Last Admin: 08/08/17 09:56 Dose: 40 mg Rosuvastatin Calcium (Crestor) 5 mg PO HS [facility] Last Admin: 08/08/17 22:31 Dose: 5 mg Saccharomyces Boulardii (Florastor) 250 mg PO BID [facility] Last Admin: 08/08/17 17:27 Dose: 250 mg Torsemide (Demadex) 20 mg PO DAILY [facility] Last Admin: 08/08/17 09:55 Dose: 20 mg - Labs Labs: 08/09/17 07:17 08/08/17 14:00 - Additional Findings Additional findings: - Constitutional Appears: Non-toxic, No Acute Distress, Unkempt - Head Exam Head Exam: ATRAUMATIC, NORMAL INSPECTION, NORMOCEPHALIC - Eye Exam Eye Exam: EOMI, Normal appearance, PERRL - ENT Exam ENT Exam: Mucous Membranes Moist - Respiratory Exam Respiratory Exam: Clear to Ausculation Bilateral, NORMAL BREATHING PATTERN. absent: Accessory Muscle Use, Rales, Rhonchi, Wheezes, Respiratory Distress - Cardiovascular Exam Cardiovascular Exam: REGULAR RHYTHM, RRR, +S1, +S2. absent: Bradycardia, Tachycardia, Diastolic murmur, Gallop, Rubs, Murmur - GI/Abdominal Exam GI & Abdominal Exam: Soft, Normal Bowel Sounds. absent: Distended, Tenderness - Extremities Exam Extremities Exam: Normal Capillary Refill, Tenderness (right proximal thigh ). absent: Calf Tenderness, Pedal Edema - Neurological Exam Neurological Exam: Alert, Awake, Oriented x3 - Psychiatric Exam Psychiatric exam: Normal Affect, Normal Mood - Skin Skin Exam: Dry, Intact, Normal Color, Warm Assessment and Plan (1) Hypertensive urgency Status: Acute (2) Hip pain, right Status: Acute (3) Lower extremity edema Status: Acute (4) Elevated brain natriuretic peptide (BNP) level Status: Acute (5) Hypokalemia Status: Acute (6) Tobacco abuse Status: Acute (7) Prophylactic measure Status: Acute - Assessment and Plan (Free Text) Plan: Disposition: Patient ready for discharge to [facility] per PT recs, however patient does not have insurance so he will need to go to a group home that accommodates walkers. (1) Hypertensive urgency * BP 208/137 on arrival, down to 151/93 * Vitals Q4H * CXR: pending * Echo (04/16/17): EF 60%, concentric LVH, impaired diastolic relaxation * repeat echo unchanged from previous * HHD with Na restriction Meds * Lisinopril 10 mg QD * Coreg 12.5 mg PO Q12 * Torosemide 10 mg * discontinued amlodipine 10 mg QD because of lower extremity swelling (2) Hip pain, right * Dr Mayers consulted - no intervention planned at this time, cleared for discharge from orthopedic perspective Imaging * Hip XR: no demonstrated fracture or dislocation. bilateral hip degenerative changes. Nonspecific proximal right femoral well circumscribed lesion with scelrotic rim * Hip CT: benign sclerotic margins and well circumscribed intramedullary lesion of the proximal femur * Hip MRI: 1. Moderate asymmetric right hip joint effusion. This may be the sequelae of underlying acute inflammatory and or infectious changes. 2. Moderate degenerative changes of the right hip with joint space narrowing most prominent at the superior aspect of the right femoral head with associated cartilage thinning and signal change within the bony acetabulum and superior femoral head with decreased T1 and increased STIR signal suggestive for osteochondral change. In addition, there is a suggestion of some mild 2-3 millimeter subchondral cyst formation within the superior bony acetabulum. 3. Adjacent degenerative fraying and/or partial tearing of the right anterior acetabular labrum. 4. Partial tearing and fraying with increased signal seen within the anterior right gluteus tendon attachments on the greater trochanter suggestive for partial tearing and or moderate to severe tendinopathy. Adjacent mild reactive edema within the bone at that level. 5. Again identified within the proximal medullary cavity of the right proximal femur, is an intramedullary lesion. The lesion measures 1.5 x 1.3 x 1.8 centimeters abutting the posterior cortex of the proximal femur. The lesion demonstrates decreased T1 signal with increased STIR signal. In correlation with the recent CT scan dated 08/04/2017, the lesion demonstrates thin peripheral sclerotic well -defined margins. This is of uncertain clinical etiology and may represent a benign bone lesion. Additional etiologies not excluded. Continued interval followup and or correlation with bone scan may be helpful if clinically indicated. Clinical correlation. 6. Heterogeneity of the visualized marrow with patchy decreased T1 signal suggestive for hematopoietic marrow reconversion. 7. Mild degenerative changes noted in the lower lumbar spine. Meds * Toradol PRN pain (3) Lower extremity edema * Bilateral * Erythema present but non painful * No leukocytosis * Afebrile * Likely 2/2 diastolic dysfunction, unlikely cellulitis * Echo (04/16/17): EF 60%, concentric LVH, impaired diastolic relaxation * most recent echo unchanged * Venous doppler (08/05/17): posterior tibial and peroneal veins were not clearly visualized due to severe edema. no evidence of deep vein thrombosis for those clearly visualized veins of right lower extremity. No evidence of deep or superfical vein thrombosis of the left lower extremity * Blood cultures negative * Started Torosemide in favor of lasix * Will give 5 days of antibiotics total (until 08/10) - currently on PO keflex * Florastor 250 mg PO BID (4) Elevated brain natriuretic peptide (BNP) level * likely due to hypertensive cardiomyopathy * BP: 208/137 on arrival, trending down * CXR: pending * Echo (04/16/17): EF 60%, concentric LVH, impaired diastolic relaxation * most recent unchanged * Started Torosemide in favor of lasix * Coreg 12.5 mg BID * ASA * Lisinopril (5) Hypokalemia - resolved * Monitor with AM labs (6) Tobacco abuse * Smoking cessation counseling * Nicoderm patch (7) Prophylactic measure * DVT: heparin * GI: Protonix <Ryland Pearson - Last Filed: 08/09/17 19:02> Objective - Vital Signs/Intake and Output Vital Signs (last 24 hours): Temp Pulse Resp BP Pulse Ox 97.6 F 72 20 145/89 96 08/09/17 16:00 08/09/17 16:00 08/09/17 16:00 08/09/17 16:00 08/09/17 16:00 Intake and Output: 08/09/17 08/09/17 06:59 18:59 Intake Total 600 Output Total 500 1200 Balance -500 -600 - Medications Medications: Current Medications Aspirin (Aspirin Chewable) 81 mg PO DAILY [facility] Last Admin: 08/09/17 09:46 Dose: 81 mg Carvedilol (Coreg) 12.5 mg PO Q12 [facility] Last Admin: 08/09/17 13:52 Dose: 12.5 mg Cephalexin Monohydrate (Keflex) 250 mg PO Q6 [facility] PRN Reason: Protocol Stop: 08/10/17 20:00 Last Admin: 08/09/17 18:07 Dose: 250 mg Heparin Sodium (Porcine) (Heparin) 5,000 units SC Q12 [facility] Last Admin: 08/09/17 09:57 Dose: 5,000 units Lisinopril (Zestril) 10 mg PO DAILY [facility] Last Admin: 08/09/17 09:47 Dose: 10 mg Nicotine (Nicoderm Cq) 1 patch TD DAILY [facility] Pantoprazole Sodium (Protonix Ec Tab) 40 mg PO DAILY [facility] Last Admin: 08/09/17 09:46 Dose: 40 mg Rosuvastatin Calcium (Crestor) 5 mg PO HS [facility] Last Admin: 08/08/17 22:31 Dose: 5 mg Saccharomyces Boulardii (Florastor) 250 mg PO BID [facility] Last Admin: 08/09/17 18:06 Dose: 250 mg Torsemide (Demadex) 10 mg PO DAILY [facility] - Labs Labs: 08/09/17 07:17 08/09/17 07:17 Attending/Attestation - Attestation I have personally seen and examined this patient.: Yes I have fully participated in the care of the patient.: Yes I have reviewed all pertinent clinical information, including history, physical exam and plan: Yes Notes (Text): 08/09/17 18:50 Patient was seen and examined at 1:00 PM 08/09/17. Exam, assessment and plan were gone over with the resident. Also on ROS: Right Hip pain if he lays on this side. Walked with walker with Physical Therapist today and had some minor pain in the Right Hip Also on Exam: HEENT: Dry oral mucosa, Dry Nasal Turbinates Extremities: Bilateral Lower Legs shows no signs of cellulitis (NO edema, NO warmth, NO erythema) Assessments: 1). Right Hip Pain S/P Fall 1 month ago MRI results noted. Ortho: NO further intervention 2). HTN Urgency Coreg increased to 12.5 mg PO 2x/day Zestril 10 mg PO 1x/day Torsemide decreased to 10 mg PO 1x/day (due to elevated Cr) 3). Bilateral Leg Edema/Cellulitis Resolved Keflex last dose 08/10/17 at 8 PM 4). Diastolic HF Torsemide 10 mg PO 1x/day Zestril 10 mg PO 1x/day Coreg 12.5 mg PO 2x/day 5). Hx CVA ASA 81 mg PO 1x/day Corestor 5 mg PO HS 6). Nicotine Addiction Nicotine 14 mg TD 1x/day 7). Elevated Cr Likely Prerenal from dehydration Decreased the Torsemide to 10 mg PO 1x/day Encourage 8 ounces of water every 2 hours (Nursing order also placed to encourage fluid intake) Plan: spoke with Parts Lister Antonio and explained that patient will likely need Rolling Walker. As long as cleared by PT then [facility] with Rolling Walker. Ryland Pearson D.O.
[2017-08-09 09:25] LABS: ALBUMIN 3.5 g/dL (3.5-5.0); CALCIUM 8.9 mg/dl (8.6-10.4)
[2017-08-09] MEDS: Pantoprazole 40 mg EC Tab PO SCH (09:46)
[2017-08-09] MEDS: Saccharomyces Boulardi 250 mg Cap PO SCH ×2 (09:46→18:06)
[2017-08-10 06:24] LABS: BASO % 0.4 % (0.0-2.0); EOS # 0.3 K/uL (0.0-0.7); EOS % 6.7 % (0.0-4.0); HEMOGLOBIN 13.4 g/dL (12.0-18.0); LYMPH # 1.5 K/uL (1.0-4.3); LYMPH % 29.8 % (20.0-40.0); MEAN CELL VOLUME 90.7 fL (80.0-94.0); MEAN CORPUSCULAR HEMOGLOBIN 30.7 pg (27.0-31.0); MEAN CORPUSCULAR HGB CONC 33.9 g/dL (33.0-37.0); MEAN PLATELET VOLUME 9.4 fL (7.2-11.7); MONO # 0.8 K/uL (0.0-0.8); MONO % 16.8 % (0.0-10.0); NEUT # 2.3 K/uL (1.8-7.0); NEUT % 46.3 % (50.0-75.0); NRBC % 0.2 % (0.0-2.0); RBC 4.38 Mil/uL (4.40-5.90); RED CELL DISTRIBUTION WIDTH 14.7 % (11.5-14.5)
[2017-08-10 06:37] LABS: ALBUMIN 3.2 g/dL (3.5-5.0); ALT/SGPT 118 U/L (21-72); AST/SGOT 123 U/L (17-59); BLOOD UREA NITROGEN 52 mg/dL (9-20); CALCIUM 8.8 mg/dl (8.6-10.4); GFR AFRICAN-AMERICAN > 60; GFR NON-AFRICAN AMERICAN 57
[2017-08-10 09:45] VITALS: RESP 18; O2SAT 98
[2017-08-10] MEDS: Pantoprazole 40 mg EC Tab PO SCH (10:07)
[2017-08-10] MEDS: Saccharomyces Boulardi 250 mg Cap PO SCH (10:07)
--- NOTE | 2017-08-10 13:28 | CP.PCM.DIS ---
<Nila Alexis - Last Filed: 08/10/17 13:25> Provider - Provider Date of Admission: 08/07/17 15:45 Attending physician: Keagan Holland MD Consults: Dr. Mayers Time Spent in preparation of Discharge (in minutes): 35 Diagnosis - Discharge Diagnosis (1) Hypertensive urgency Status: Acute (2) Hip pain, right Status: Acute (3) Lower extremity edema Status: Acute (4) Elevated brain natriuretic peptide (BNP) level Status: Acute (5) Hypokalemia Status: Acute (6) Tobacco abuse Status: Acute Priority: High (7) Prophylactic measure Status: Acute Hospital Course - Lab Results Lab Results: Micro Results 08/04/17 22:50 Blood Blood Culture - Final NO GROWTH AFTER 5 DAYS 08/04/17 22:50 Blood Gram Stain - Final TEST NOT PERFORMED 08/04/17 22:35 Blood Blood Culture - Final NO GROWTH AFTER 5 DAYS 08/04/17 22:35 Blood Gram Stain - Final TEST NOT PERFORMED Most Recent Lab Values WBC 5.0 K/uL (4.8-10.8) 08/10/17 06:06 RBC 4.38 Mil/uL (4.40-5.90) L 08/10/17 06:06 Hgb 13.4 g/dL (12.0-18.0) 08/10/17 06:06 Hct 39.7 % (35.0-51.0) 08/10/17 06:06 MCV 90.7 fL (80.0-94.0) 08/10/17 06:06 MCH 30.7 pg (27.0-31.0) 08/10/17 06:06 MCHC 33.9 g/dL (33.0-37.0) 08/10/17 06:06 RDW 14.7 % (11.5-14.5) H 08/10/17 06:06 Plt Count 159 K/uL (130-400) 08/10/17 06:06 MPV 9.4 fL (7.2-11.7) 08/10/17 06:06 Neut % (Auto) 46.3 % (50.0-75.0) L 08/10/17 06:06 Lymph % (Auto) 29.8 % (20.0-40.0) 08/10/17 06:06 [place] % (Auto) 16.8 % (0.0-10.0) H 08/10/17 06:06 Eos % (Auto) 6.7 % (0.0-4.0) H 08/10/17 06:06 Baso % (Auto) 0.4 % (0.0-2.0) 08/10/17 06:06 Neut # (Auto) 2.3 K/uL (1.8-7.0) 08/10/17 06:06 Lymph # (Auto) 1.5 K/uL (1.0-4.3) 08/10/17 06:06 [place] # (Auto) 0.8 K/uL (0.0-0.8) 08/10/17 06:06 Eos # (Auto) 0.3 K/uL (0.0-0.7) 08/10/17 06:06 Baso # (Auto) 0.0 K/uL (0.0-0.2) 08/10/17 06:06 Sodium 141 mmol/L (132-148) 08/10/17 06:06 Potassium 4.5 mmol/L (3.6-5.2) 08/10/17 06:06 Chloride 102 mmol/L (98-107) 08/10/17 06:06 Carbon Dioxide 26 mmol/L (22-30) 08/10/17 06:06 Anion Gap 18 (10-20) 08/10/17 06:06 BUN 52 mg/dL (9-20) H 08/10/17 06:06 Creatinine 1.3 mg/dL (0.8-1.5) 08/10/17 06:06 Est GFR ( Amer) > 60 08/10/17 06:06 Est GFR (Non-Af Amer) 57 08/10/17 06:06 POC Glucose (mg/dL) 97 mg/dL (65-110) 08/08/17 11:55 Random Glucose 100 mg/dL (75-110) 08/10/17 06:06 Calcium 8.8 mg/dl (8.6-10.4) 08/10/17 06:06 Phosphorus 3.2 mg/dL (2.5-4.5) 08/10/17 06:06 Magnesium 2.1 mg/dL (1.6-2.3) 08/10/17 06:06 Total Bilirubin 0.4 mg/dL (0.2-1.3) 08/10/17 06:06 AST 123 U/L (17-59) H 08/10/17 06:06 ALT 118 U/L (21-72) H D 08/10/17 06:06 Alkaline Phosphatase 64 U/L (38-126) 08/10/17 06:06 Total Creatine Kinase 62 U/L (55-170) 08/04/17 22:07 NT-Pro-B Natriuret Pep 1670 pg/mL (0-900) H 08/07/17 07:08 Total Protein 6.5 g/dL (6.3-8.3) 08/10/17 06:06 Albumin 3.2 g/dL (3.5-5.0) L 08/10/17 06:06 Globulin 3.3 gm/dL (2.2-3.9) 08/10/17 06:06 Albumin/Globulin Ratio 1.0 (1.0-2.1) 08/10/17 06:06 Vancomycin Trough 18.2 ug/mL (5.0-10.0) H 08/07/17 00:41 Random Vancomycin 13.53 ug/mL 08/07/17 11:09 - Hospital Course Hospital Course: Upon admission: Patient is a 57 year old homeless male with a past medical history of hypertension, diastolic heart failure, and CVA (left [employer] infarct), who presents to the ED with right hip pain. During initial questioning patient says "I don't know why the ambulance brought me here" but with further questioning, cory admits to right sided hip pain that started two days ago while he was sitting talking with his family. Patient says it came on suddenly and feels sore as if he fell on it, although he denies falling or trauma to the area. Patient describes it as 9/10 and worsens with movement. When examining the patient, I asked about the lower extremity edema, which he attributes to his shoes. I asked if they were too small or uncomfortable and he just replies "no my shoes just do that". Of note, patient was recently discharged from the hospital for HTN and started on BP meds. Patient says he has not been taking them because he ran out. Patient denies fever, chills, headache, dizziness, changes in vision/ hearing, chest pain, SOB, palpitations, abdominal pain, nausea, vomiting, diarrhea, constipation, changes in urination, and calf pain. Hospital Course: Patient was admitted for right hip pain, hypertensive urgency, and bilateral lower extremity edema. Upon ED arrival, his BP was 208/137 and was given Lasix 40mg IV Stat. Dr. Mayers, the orthopedic surgeon, was consulted for the right hip pain. Hip XR showed no fracture or dislocation and bilateral hip degenerative changes; hip CT showed benign-appearing, sclerotic margins, well- circumscribed intramedullary lesion proximal femur; and hip MRI showed moderate asymmetric right hip joint effusion, moderate degenerative changes of right hip with joint space narrowing, and partial tearing/severe tendinopathy of the greater trochanter. Patient was placed on Toradol PRN for pain. Dr. Mayers deemed no intervention necessary at this time and cleared him for discharge. Regarding the hypertensive urgency, blood pressure became better controlled after administration of Lisinopril, Coreg, and Torsemide during his hospital stay. Amlodipine was discontinued due to lower extremity swelling. Echocardiogram showed EF of 50%, ventricle of normal size, borderline concentric LVF, borderline left ventricle systolic function, and abnormal relaxation pattern. For the bilateral LE edema, Venous Doppler showed no evidence of DVT or superficial venous thrombosis bilaterally. Blood culture was negative. He was initially started on Zosyn and Vancomycin upon admission, and Keflex taper onwards for possibility of cellulitis. Upon discharge: Patient stable for discharge per Dr. Pearson and the orthopedic team. Patient was discharged with the following instructions: Please follow up at the [facility] in the [facility] - . Please fill and take the following new medications as instructed: Aspirin 81 mg by mouth once daily Atorvastatin 10 mg by mouth once at bedtime Carvedilol 12.5 mg by mouth twice daily Lisinopril 10 mg by mouth once daily Torsemide 10 mg by mouth once daily If you experience new or worsening symptoms, please return to the ED. Please note that this is a summary of events. For more details, please see complete medical record. Discharge Exam - Head Exam Head Exam: ATRAUMATIC, NORMAL INSPECTION, NORMOCEPHALIC - Eye Exam Eye Exam: EOMI, Normal appearance, PERRL - ENT Exam ENT Exam: Mucous Membranes Moist - Respiratory Exam Respiratory Exam: Clear to PA & Lateral, NORMAL BREATHING PATTERN, UNREMARKABLE - Cardiovascular Exam Cardiovascular Exam: RRR, +S1, +S2. absent: Bradycardia, Tachycardia - GI/Abdominal Exam GI & Abdominal Exam: Normal Bowel Sounds, Soft, Unremarkable. absent: Distended , Tenderness - Extremities Exam Extremities exam: normal inspection - Neurological Exam Neurological exam: Alert, Oriented x3 - Psychiatric Exam Psychiatric exam: Normal Affect, Normal Mood - Skin Skin Exam: Dry, Intact, Normal Color, Warm Discharge Plan - Discharge Medications Prescriptions: Aspirin [Aspirin Chewable] 81 mg PO DAILY #30 chew Atorvastatin [Lipitor] 10 mg PO DIN #30 tab Carvedilol [Coreg] 12.5 mg PO Q12 #60 tab Lisinopril [Zestril] 10 mg PO DAILY #30 tab Torsemide [Demadex] 10 mg PO DAILY #30 tab - Follow Up Plan Condition: STABLE Disposition: OTHER INSTITUTION Instructions: Heart Healthy Diet, Heart Failure, Adult (DC), Cellulitis (Skin Infection), Adult (DC), Aspirin, Atorvastatin, Carvedilol, Lisinopril, Torsemide Additional Instructions: Please follow up at the [facility] in the [facility] - . Please fill and take the following new medications as instructed: Aspirin 81 mg by mouth once daily Atorvastatin 10 mg by mouth once at bedtime Carvedilol 12.5 mg by mouth twice daily Lisinopril 10 mg by mouth once daily Torsemide 10 mg by mouth once daily If you experience new or worsening symptoms, please return to the ED. Referrals: [facility] at [facility] [Outside] <Ryland Pearson - Last Filed: 08/10/17 16:13> Provider - Provider Date of Admission: 08/07/17 15:45 Attending physician: Keagan Holland MD Hospital Course - Lab Results Lab Results: Micro Results 08/04/17 22:50 Blood Blood Culture - Final NO GROWTH AFTER 5 DAYS 08/04/17 22:50 Blood Gram Stain - Final TEST NOT PERFORMED 08/04/17 22:35 Blood Blood Culture - Final NO GROWTH AFTER 5 DAYS 08/04/17 22:35 Blood Gram Stain - Final TEST NOT PERFORMED Most Recent Lab Values WBC 5.0 K/uL (4.8-10.8) 08/10/17 06:06 RBC 4.38 Mil/uL (4.40-5.90) L 08/10/17 06:06 Hgb 13.4 g/dL (12.0-18.0) 08/10/17 06:06 Hct 39.7 % (35.0-51.0) 08/10/17 06:06 MCV 90.7 fL (80.0-94.0) 08/10/17 06:06 MCH 30.7 pg (27.0-31.0) 08/10/17 06:06 MCHC 33.9 g/dL (33.0-37.0) 08/10/17 06:06 RDW 14.7 % (11.5-14.5) H 08/10/17 06:06 Plt Count 159 K/uL (130-400) 08/10/17 06:06 MPV 9.4 fL (7.2-11.7) 08/10/17 06:06 Neut % (Auto) 46.3 % (50.0-75.0) L 08/10/17 06:06 Lymph % (Auto) 29.8 % (20.0-40.0) 08/10/17 06:06 [place] % (Auto) 16.8 % (0.0-10.0) H 08/10/17 06:06 Eos % (Auto) 6.7 % (0.0-4.0) H 08/10/17 06:06 Baso % (Auto) 0.4 % (0.0-2.0) 08/10/17 06:06 Neut # (Auto) 2.3 K/uL (1.8-7.0) 08/10/17 06:06 Lymph # (Auto) 1.5 K/uL (1.0-4.3) 08/10/17 06:06 [place] # (Auto) 0.8 K/uL (0.0-0.8) 08/10/17 06:06 Eos # (Auto) 0.3 K/uL (0.0-0.7) 08/10/17 06:06 Baso # (Auto) 0.0 K/uL (0.0-0.2) 08/10/17 06:06 Sodium 141 mmol/L (132-148) 08/10/17 06:06 Potassium 4.5 mmol/L (3.6-5.2) 08/10/17 06:06 Chloride 102 mmol/L (98-107) 08/10/17 06:06 Carbon Dioxide 26 mmol/L (22-30) 08/10/17 06:06 Anion Gap 18 (10-20) 08/10/17 06:06 BUN 52 mg/dL (9-20) H 08/10/17 06:06 Creatinine 1.3 mg/dL (0.8-1.5) 08/10/17 06:06 Est GFR ( Amer) > 60 08/10/17 06:06 Est GFR (Non-Af Amer) 57 08/10/17 06:06 POC Glucose (mg/dL) 97 mg/dL (65-110) 08/08/17 11:55 Random Glucose 100 mg/dL (75-110) 08/10/17 06:06 Calcium 8.8 mg/dl (8.6-10.4) 08/10/17 06:06 Phosphorus 3.2 mg/dL (2.5-4.5) 08/10/17 06:06 Magnesium 2.1 mg/dL (1.6-2.3) 08/10/17 06:06 Total Bilirubin 0.4 mg/dL (0.2-1.3) 08/10/17 06:06 AST 123 U/L (17-59) H 08/10/17 06:06 ALT 118 U/L (21-72) H D 08/10/17 06:06 Alkaline Phosphatase 64 U/L (38-126) 08/10/17 06:06 Total Creatine Kinase 62 U/L (55-170) 08/04/17 22:07 NT-Pro-B Natriuret Pep 1670 pg/mL (0-900) H 08/07/17 07:08 Total Protein 6.5 g/dL (6.3-8.3) 08/10/17 06:06 Albumin 3.2 g/dL (3.5-5.0) L 08/10/17 06:06 Globulin 3.3 gm/dL (2.2-3.9) 08/10/17 06:06 Albumin/Globulin Ratio 1.0 (1.0-2.1) 08/10/17 06:06 Vancomycin Trough 18.2 ug/mL (5.0-10.0) H 08/07/17 00:41 Random Vancomycin 13.53 ug/mL 08/07/17 11:09 Attending/Attestation - Attestation I have personally seen and examined this patient.: Yes I have fully participated in the care of the patient.: Yes I have reviewed all pertinent clinical information, including history, physical exam and plan: Yes Notes (Text): 08/10/17 16:12 Spoke with PT Taty and patient requires Rolling Walker for ambulation. Rx for the Rolling Walker given to Telephone Repairer Ebony and once obtained and arrangements made for Detention, then patient is to be discharged. Exam, assessment and plan were gone over with the resident. Ryland Pearson D.O.
--- NOTE | 2017-08-10 14:50 | PCM.HF ---
Heart Failure Core Measure - Heart Failure Ejection Fraction: 40 % or Greater ROBERT Inhibitor Prescribed: Yes Beta-Stacy Prescribed: Carvedilol Angiotensin II Receptor Stacy Prescribed: No Contraindication/Reason for not providing: on robert AnticoagulationTherapy for Atrial Fibrillation/Atrialflutter: No Contraindication/Reason for not providing: no hx of a ib Aldosterone Antagonist Prescribed: No Contraindication/Reason for not providing: ef>45 Hydralazine Nitrate Prescribed: No Contraindication/Reason for not providing: ef>45 Implantable Cardioverter Defibrillator Therapy: No Contraindication/Reason for not providing: ef.45/diastolic HF Cardiac Resynchronization Therapy Prescribed: No Contraindication/Reason for not providing: NSR - Follow up Will be discharged to: Home Follow Up Date (must be within 7 days from discharge): 08/14/17 Follow Up Time: 09:00
[2017-08-10 15:34] VITALS: BP 153/86; PULSE 62; TEMP 97.4
== END 2017-08-10 17:10 | disposition home or self-care (01) | DRG 543 ==
LOC: C.ER 18:53 → C.3T 08-05 01:13 → C.6T 08-05 09:00 → OBSVTOIN 08-07 15:45
PROVIDERS: ADMIT Internal Medicine; ATTEND Internal Medicine
DX: I16.0 Hypertensive urgency (principal); I50.32 Chronic diastolic (congestive) heart failure; E86.0 Dehydration; L03.119 Cellulitis of unspecified part of limb; E87.6 Hypokalemia; I11.0 Hypertensive heart disease with heart failure; T69.029A Immersion foot, unspecified foot, initial encounter; W19.XXXA Unspecified fall, initial encounter; K21.9 Gastro-esophageal reflux disease without esophagitis; F32.9 Major depressive disorder, single episode, unspecified; F17.210 Nicotine dependence, cigarettes, uncomplicated; Z59.0 Homelessness; Z79.82 Long term (current) use of aspirin; Z79.899 Other long term (current) drug therapy; Z86.73 Personal history of transient ischemic attack (TIA), and cerebral infarction without residual deficits

== ENCOUNTER 2017-08-23 20:31 | Emergency (ER) | payer OTHER ==
[2017-08-23 20:31] VITALS: BMI 22.9
[2017-08-23 21:22] VITALS: TEMP 97.5
[2017-08-23] MEDS ORDERED: Sodium Chloride 0.9% 1,000 ML IV ONE (21:58)
[2017-08-23] MEDS ORDERED: Labetalol 25mg/5ml Syringe IVP STA (21:59)
--- NOTE | 2017-08-23 22:03 | C.PDOC ---
History Of Present Illness 57 year old male presents to the ED c/o right lower leg pain. Patient is homeless, and was admitted to the hospital on 08/05/2017. Patient has a history of chronic alcoholism. Patient denies weakness, numbness, fever, chills, trauma , injury, fall. Time Seen by Provider: 08/23/17 22:02 Chief Complaint (Nursing): Lower Extremity Problem/Injury History Per: Patient History/Exam Limitations: no limitations Onset/Duration Of Symptoms: Days Current Symptoms Are (Timing): Still Present Recent travel outside of the [place]: No Additional History Per: Patient - Ankle/Foot Description Of Injury: Other Past Medical History Reviewed: Historical Data, Nursing Documentation, Vital Signs Vital Signs: Last Vital Signs Temp 97.5 F L 08/23/17 21:19 Pulse 70 08/24/17 04:23 Resp 16 08/24/17 04:23 BP 124/85 08/24/17 04:23 Pulse Ox 100 08/24/17 05:09 - Medical History PMH: CVA, HTN Denies: Arthritis, CHF, COPD, HIV, Hypercholesterolemia, Hypothyroidism, Chronic Kidney Disease, Rheumatoid Arthritis, Seizures, Sexually Transmitted Disease Surgical History: No Surg Hx - [facility] Procedures OCCUPATIONAL THERAPY (05/07/14) PHYSICAL THERAPY NEC (05/07/14) Family History: States: Unknown Family Hx - Social History Hx Alcohol Use: No Hx Substance Use: No - Immunization History Hx Tetanus Toxoid Vaccination: No Hx Influenza Vaccination: No Hx Pneumococcal Vaccination: No Review Of Systems Constitutional: Negative for: Fever, Chills Cardiovascular: Negative for: Chest Pain Respiratory: Negative for: Cough, Shortness of Breath Gastrointestinal: Negative for: Vomiting, Abdominal Pain Musculoskeletal: Positive for: Leg Pain Skin: Negative for: Rash Neurological: Negative for: Weakness, Numbness Physical Exam - Physical Exam Appears: Non-toxic, No Acute Distress Skin: Normal Color, Warm, Dry Head: Atraumatic, Normacephalic Eye(s): bilateral: Normal Inspection Nose: No Discharge Oral Mucosa: Moist Neck: Normal ROM, Supple Chest: Symmetrical Cardiovascular: Rhythm Regular, No Murmur Respiratory: Normal Breath Sounds, No Rales, No Rhonchi, No Wheezing Gastrointestinal/Abdominal: Soft, No Tenderness, No Guarding, No Rebound Extremity: Normal ROM, No Tenderness, Capillary Refill (< 2 seconds), No Deformity, No Swelling Neurological/Psych: Oriented x3, Normal Speech ED Course And Treatment - Laboratory Results Result Diagrams: 08/23/17 22:09 08/23/17 22:09 O2 Sat by Pulse Oximetry: 100 (On RA) Pulse Ox Interpretation: Normal Medical Decision Making Medical Decision Making: Impression: right lower leg pain Plan: * Labs * IV fluids * Trandate 20 mg IVP Disposition Counseled Patient/Family Regarding: Diagnosis - Disposition Referrals: [facility] [Outside] Disposition: HOME/ ROUTINE Disposition Time: 05:08 Condition: STABLE Forms: [employer] (Serbian) - Clinical Impression Clinical Impression: Homeless, Hypertension - Scribe Statement The provider has reviewed the documentation as recorded by the Scribe Elver Malagon All medical record entries made by the Scribe were at my direction and personally dictated by me. I have reviewed the chart and agree that the record accurately reflects my personal performance of the history, physical exam, medical decision making, and the department course for this patient. I have also personally directed, reviewed, and agree with the discharge instructions and disposition.
[2017-08-23] MEDS ORDERED: Labetalol 25mg/5ml Syringe ONE (22:10)
[2017-08-23] MEDS ORDERED: Sodium Chloride 0.9% 1,000 ML ONE (22:10)
[2017-08-23 22:14] LABS: BASO % 0.6 % (0.0-2.0); EOS # 0.3 K/uL (0.0-0.7); EOS % 5.5 % (0.0-4.0); HEMOGLOBIN 13.7 g/dL (12.0-18.0); LYMPH # 1.7 K/uL (1.0-4.3); LYMPH % 29.5 % (20.0-40.0); MEAN CELL VOLUME 90.3 fL (80.0-94.0); MEAN CORPUSCULAR HEMOGLOBIN 30.3 pg (27.0-31.0); MEAN CORPUSCULAR HGB CONC 33.6 g/dL (33.0-37.0); MEAN PLATELET VOLUME 8.5 fL (7.2-11.7); MONO % 16.7 % (0.0-10.0); NEUT # 2.8 K/uL (1.8-7.0); NEUT % 47.7 % (50.0-75.0); NRBC % 0.1 % (0.0-2.0); RBC 4.54 Mil/uL (4.40-5.90); RED CELL DISTRIBUTION WIDTH 14.5 % (11.5-14.5); WHITE BLOOD COUNT 5.9 K/uL (4.8-10.8)
[2017-08-23 22:26] LABS: ALB/GLOB RATIO 0.9 (1.0-2.1); ALBUMIN 3.8 g/dL (3.5-5.0); ALT/SGPT 72 U/L (21-72); AST/SGOT 56 U/L (17-59); BLOOD UREA NITROGEN 18 mg/dL (9-20); CALCIUM 9.1 mg/dl (8.6-10.4); GFR AFRICAN-AMERICAN > 60; GFR NON-AFRICAN AMERICAN > 60
[2017-08-24 04:25] VITALS: BP 124/85; PULSE 70; RESP 16
[2017-08-24 05:09] VITALS: O2SAT 100
== END 2017-08-24 06:04 | disposition home or self-care (01) ==
LOC: C.ER 20:31
DX: M79.661 Pain in right lower leg (principal); I10 Essential (primary) hypertension; Z59.0 Homelessness
CPT/HCPCS: 80053; 80320; 85025; 96374; 99285; J7040

== ENCOUNTER 2017-10-31 18:23 | Emergency (ER) | payer OTHER ==
[2017-10-31 18:24] VITALS: BMI 22.9
--- NOTE | 2017-10-31 19:20 | C.PDOC ---
History Of Present Illness 57 y/o male presents to ED by EMS after being found on street partially dressed , wearing coat but genitals exposed. pt transported to er for eval. in er, ptshowered upon arrival, given clothes . After shower patient is AAOx3 and denies any physical complaints at this time. Time Seen by Provider: 10/31/17 19:14 Chief Complaint (Nursing): Medical Clearance History Per: Patient History/Exam Limitations: no limitations Onset/Duration Of Symptoms: Hrs Current Symptoms Are (Timing): Still Present Past Medical History Reviewed: Historical Data, Nursing Documentation, Vital Signs Vital Signs: Last Vital Signs Temp 98.9 F 10/31/17 19:32 Pulse 92 H 10/31/17 19:32 Resp 18 10/31/17 19:32 BP 173/96 H 10/31/17 19:32 Pulse Ox 100 10/31/17 19:32 - Medical History PMH: CVA, HTN Surgical History: No Surg Hx - [facility] Procedures OCCUPATIONAL THERAPY (05/07/14) PHYSICAL THERAPY NEC (05/07/14) Family History: States: No Known Family Hx - Social History Hx Alcohol Use: No Hx Substance Use: No - Immunization History Hx Tetanus Toxoid Vaccination: No Hx Influenza Vaccination: No Hx Pneumococcal Vaccination: No Review Of Systems Constitutional: Negative for: Fever, Chills Cardiovascular: Negative for: Chest Pain Respiratory: Negative for: Shortness of Breath Gastrointestinal: Negative for: Nausea, Vomiting Skin: Negative for: Rash Psych: Negative for: Suicidal ideation, Withdrawal Physical Exam - Physical Exam Appears: Non-toxic, No Acute Distress, Unkempt, Other (Poor hygiene) Skin: Warm, Dry, No Rash Head: Atraumatic, Normacephalic Eye(s): bilateral: Normal Inspection Oral Mucosa: Moist Neck: Normal ROM, Supple Cardiovascular: Rhythm Regular Respiratory: Normal Breath Sounds, No Rales, No Wheezing Gastrointestinal/Abdominal: Soft, No Tenderness, No Guarding, No Rebound Neurological/Psych: Oriented x3, Normal Speech, Normal Cognition ED Course And Treatment O2 Sat by Pulse Oximetry: 100 (RA) Pulse Ox Interpretation: Normal Medical Decision Making Medical Decision Making: clinically sober, took shower given clothes, no medical complaint. Disposition - Disposition Disposition: HOME/ ROUTINE Disposition Time: 07:00 Condition: STABLE Additional Instructions: please follow up with your doctor. return to er with worsening symptoms or concerns. Forms: [facility] (Divehi) - Clinical Impression Clinical Impression: Homeless, Personal bathing and showering, Evaluation by medical service required - Scribe Statement The provider has reviewed the documentation as recorded by the Scribbharat Vines All medical record entries made by the Scribe were at my direction and personally dictated by me. I have reviewed the chart and agree that the record accurately reflects my personal performance of the history, physical exam, medical decision making, and the department course for this patient. I have also personally directed, reviewed, and agree with the discharge instructions and disposition.
[2017-10-31 19:24] VITALS: O2SAT 100
--- NOTE | 2017-10-31 19:27 | C.PDOC ---
Time Seen by Provider: 10/31/17 19:14 Chief Complaint (Nursing): Medical Clearance Past Medical History - Medical History PMH: CVA, HTN Denies: Arthritis, CHF, COPD, HIV, Hypercholesterolemia, Hypothyroidism, Chronic Kidney Disease, Rheumatoid Arthritis, Seizures, Sexually Transmitted Disease - [facility] Procedures OCCUPATIONAL THERAPY (05/07/14) PHYSICAL THERAPY NEC (05/07/14) Family History: States: Unknown Family Hx - Social History Hx Alcohol Use: No Hx Substance Use: No - Immunization History Hx Tetanus Toxoid Vaccination: No Hx Influenza Vaccination: No Hx Pneumococcal Vaccination: No Disposition - Disposition Disposition: HOME/ ROUTINE Disposition Time: 19:19 Condition: STABLE Additional Instructions: please follow up with your doctor. return to er with worsening symptoms or concerns. - Clinical Impression Clinical Impression: Homeless
[2017-10-31 19:33] VITALS: BP 173/96; PULSE 92; RESP 18; TEMP 98.9
== END 2017-10-31 20:49 | disposition home or self-care (01) ==
LOC: C.ER 18:23
DX: Z04.8 Encounter for examination and observation for other specified reasons (principal); Z59.0 Homelessness

== ENCOUNTER 2018-04-03 17:10 | Inpatient (IN) | payer MEDICAID, MEDICARE, OTHER ==
[2018-04-03 17:11] VITALS: BMI 22.9
--- NOTE | 2018-04-03 17:53 | C.PDOC ---
History Of Present Illness 58 y/o homeless male, w/ no significant PMhx, presents to the ER complaining of left foot pain. Patient states that he banged his foot. According to nurse, patient reports that he walks for long periods of time so he has foot pain. Patient denies having weakness and numbness. <Bc Wagoneran - Last Filed: 04/03/18 18:06> History Per: Patient History/Exam Limitations: no limitations Onset/Duration Of Symptoms: Days Current Symptoms Are (Timing): Still Present Severity: Moderate <Roman Wagoner - Last Filed: 04/03/18 18:06> <Yasmin Farah - Last Filed: 04/04/18 03:32> Chief Complaint (Nursing): Lower Extremity Problem/Injury Past Medical History Reviewed: Historical Data, Nursing Documentation, Vital Signs - Medical History PMH: CVA, HTN Denies: Arthritis, CHF, COPD, HIV, Hypercholesterolemia, Hypothyroidism, Chronic Kidney Disease, Rheumatoid Arthritis, Seizures, Sexually Transmitted Disease Surgical History: No Surg Hx - [facility] Procedures OCCUPATIONAL THERAPY (05/07/14) PHYSICAL THERAPY NEC (05/07/14) Family History: States: No Known Family Hx - Social History Hx Alcohol Use: No Hx Substance Use: No - Immunization History Hx Tetanus Toxoid Vaccination: No Hx Influenza Vaccination: No Hx Pneumococcal Vaccination: No <CiaranRoman - Last Filed: 04/03/18 18:06> Vital Signs: Last Vital Signs Temp 97.6 F 04/04/18 03:02 Pulse 64 04/04/18 03:02 Resp 22 04/04/18 03:02 BP 143/101 H 04/04/18 03:02 Pulse Ox 98 04/04/18 03:02 - [facility] Procedures OCCUPATIONAL THERAPY (05/07/14) PHYSICAL THERAPY NEC (05/07/14) <Yasmin Farah - Last Filed: 04/04/18 03:32> Review Of Systems Except As Marked, All Systems Reviewed And Found Negative. Constitutional: Negative for: Fever, Chills Musculoskeletal: Positive for: Foot Pain (left foot pain) Neurological: Negative for: Weakness, Numbness <Roman Wagoner - Last Filed: 04/03/18 18:06> Physical Exam - Physical Exam Appears: No Acute Distress, Other (awake,alert) Skin: Normal Color, Warm, Dry Head: Atraumatic, Normacephalic Eye(s): bilateral: Normal Inspection Nose: Normal Oral Mucosa: Moist Neck: Supple Chest: Symmetrical Cardiovascular: Rhythm Regular Respiratory: Normal Breath Sounds, No Rales, No Rhonchi, No Wheezing Gastrointestinal/Abdominal: Soft, No Tenderness, No Guarding, No Rebound Extremity: Normal ROM, Other (bilateral feet: trench feet, erythematous, macerated) Neurological/Psych: Oriented x3, Normal Speech Additional Physical Exam Comments: patient is hypertensive <Bc Wagoneran - Last Filed: 04/03/18 18:06> ED Course And Treatment - Laboratory Results Result Diagrams: 04/03/18 19:20 04/03/18 19:20 <Yasmin Farah Otf Brown Last Filed: 04/04/18 03:32> Medical Decision Making Medical Decision Making: Impression: Foot Pain Plan: --Labs --CXR --X-Ray- b/l feet <Roman Wagoner Kevin Last Filed: 04/03/18 18:06> Medical Decision Making: EKG: NSR at 98 bpm, with right axis deviation, prolonged QT, no ST elevations Labs reviewed. 50mg lopressor PO given for hypertension 00:[address] Plata, patient to be admitted for hypertension and cellulitis. Repeat vitals demonstrate BP remains elevated, 166/124. Patient given 5 mg Lopressor IVP. <Yasmin Farah Otf - Last Filed: 04/04/18 03:32> Disposition <Roman Wagoner - Last Filed: 04/03/18 18:06> - Disposition Disposition Time: 00:48 <Yasmin Farah Otf - Last Filed: 04/04/18 03:32> - Disposition Disposition: HOSPITALIZED Condition: FAIR - Clinical Impression Clinical Impression: Cellulitis of both feet, Hypertension - Scribe Statement The provider has reviewed the documentation as recorded by the Yovany Jenkins Provider Attestation: All medical record entries made by the Yovany were at my direction and personally dictated by me. I have reviewed the chart and agree that the record accurately reflects my personal performance of the history, physical exam, medical decision making, and the department course for this patient. I have also personally directed, reviewed, and agree with the discharge instructions and disposition. <Roman Wagoner - Last Filed: 04/03/18 18:06>
[2018-04-03 19:23] LABS: BASO % 0.4 % (0.0-2.0); EOS % 0.1 % (0.0-4.0); HEMOGLOBIN 11.2 g/dL (12.0-18.0); LYMPH # 0.7 K/uL (1.0-4.3); LYMPH % 6.7 % (20.0-40.0); MEAN CELL VOLUME 92.1 fL (80.0-94.0); MEAN CORPUSCULAR HEMOGLOBIN 29.6 pg (27.0-31.0); MEAN CORPUSCULAR HGB CONC 32.1 g/dL (33.0-37.0); MEAN PLATELET VOLUME 9.1 fL (7.2-11.7); MONO # 1.3 K/uL (0.0-0.8); MONO % 12.6 % (0.0-10.0); NEUT # 8.4 K/uL (1.8-7.0); NEUT % 80.2 % (50.0-75.0); NRBC % 0.1 % (0.0-2.0); PLATELET COUNT 229 K/uL (130-400); RBC 3.77 Mil/uL (4.40-5.90); RED CELL DISTRIBUTION WIDTH 16.4 % (11.5-14.5); WHITE BLOOD COUNT 10.5 K/uL (4.8-10.8)
[2018-04-03 19:40] LABS: ALB/GLOB RATIO 0.9 (1.0-2.1); ALBUMIN 3.6 g/dL (3.5-5.0); ALT/SGPT 24 U/L (21-72); AST/SGOT 37 U/L (17-59); BLOOD UREA NITROGEN 60 mg/dL (9-20); CALCIUM 9.6 mg/dl (8.6-10.4); GFR NON-AFRICAN AMERICAN 52
[2018-04-03 21:23] LABS: EOSINOPHIL 1 % (0-4); LYMPHOCYTE 5 % (20-40); MONOCYTE 9 % (0-10); NEUTROPHIL 85 % (50-75); PLATELET ESTIMATE NORMAL (NORMAL); TOTAL CELLS COUNTED 100
[2018-04-04] MEDS ORDERED: Metoprolol 1 mg/ml Inj IVP ONE (01:28)
[2018-04-04] MEDS ORDERED: Labetalol 25mg/5ml Syringe IVP ONE (02:20)
--- NOTE | 2018-04-04 03:06 | CP.PCM.HP ---
<Jhonny Arreola M - Last Filed: 04/04/18 07:29> History of Present Illness - History of Present Illness History of Present Illness: H&P for Hospitalist Dr. Plata 58 M w/ PMHx of hypertension, diastolic heart failure, and CVA (left CANDY SPREADER infarct) presents to ED for foot pain. Patient is a poor historian and was not able to verbalize full sentences to obtain full H&P. Patient states he fell down earlier outside while walking and has foot pain. Unable to obtain ROS due to patient cooperation and medical condition. PMD: None PMH: hypertension, diastolic heart failure, and CVA (left CANDY SPREADER infarct) Meds: denies Allergies: denies PSH: denies FH: denies SH: smokes 1 PPD >40 years (per chart review), denies alcohol and elicit drug use, homeless Present on Admission - Present on Admission Any Indicators Present on Admission: No Review of Systems - Review of Systems Systems not reviewed;Unavailable: Altered Mental Status, Uncooperative Past Patient History - Infectious Disease Hx of Infectious Diseases: None - Tetanus Immunizations Tetanus Immunization: Unknown - Past Medical History & Family History Past Medical History?: Yes - Past Social History Smoking Status: Current Some Days Smoker - CARDIAC Hx Congestive Heart Failure: No Hx Hypercholesterolemia: No Hx Hypertension: Yes - PULMONARY Hx Chronic Obstructive Pulmonary Disease (COPD): No - NEUROLOGICAL Hx Seizures: No - HEENT Hx HEENT Problems: No - RENAL Hx Chronic Kidney Disease: No - ENDOCRINE/METABOLIC Hx Hypothyroidism: No - HEMATOLOGICAL/ONCOLOGICAL Hx Human Immunodeficiency Virus (HIV): No - INTEGUMENTARY Hx Dermatological Problems: No - MUSCULOSKELETAL/RHEUMATOLOGICAL Hx Arthritis: No Hx Rheumatoid Arthritis: No - GASTROINTESTINAL Hx Gastrointestinal Disorders: No - GENITOURINARY/GYNECOLOGICAL Hx Sexually Transmitted Disorders: No - PSYCHIATRIC Hx Substance Use: No - SURGICAL HISTORY Hx Surgeries: No - ANESTHESIA Hx Anesthesia: No Hx Anesthesia Reactions: No Meds Allergies/Adverse Reactions: Allergies Allergy/AdvReac Type Severity Reaction Status Date / Time No Known Allergies Allergy Verified 04/03/18 17:27 Physical Exam - Head Exam Additional comments: several scabs throughout body - Eye Exam Eye Exam: EOMI - ENT Exam ENT Exam: Mucous Membranes Dry - Respiratory Exam Respiratory Exam: absent: Rales, Rhonchi, Wheezes Additional comments: increased RR - Cardiovascular Exam Cardiovascular Exam: +S1, +S2. absent: Systolic Murmur - GI/Abdominal Exam GI & Abdominal Exam: Normal Bowel Sounds, Soft - Extremities Exam Additional comments: B/L pitting edema from feet to lower leg Sensitive to pain more so on the plantar surface of feet and dorsal part of foot Several callous on plantar/ dorsal side of foot Poor overal foot hygiene - Neurological Exam Neurological exam: Alert - Skin Additional comments: Patient has multiple scabs healing throughout the body along with Xeroderma Poor skin tugger Results - Vital Signs Recent Vital Signs: Last Vital Signs Temp 97.6 F 04/04/18 03:02 Pulse 64 04/04/18 03:02 Resp 22 04/04/18 03:02 BP 143/101 H 04/04/18 03:02 Pulse Ox 98 04/04/18 03:02 - Labs Result Diagrams: 04/03/18 19:20 04/03/18 19:20 Labs: Laboratory Results - last 24 hr 04/03/18 04/03/18 19:20 19:20 WBC 10.5 D RBC 3.77 L Hgb 11.2 L D Hct 34.7 L MCV 92.1 MCH 29.6 MCHC 32.1 L RDW 16.4 H Plt Count 229 MPV 9.1 Neut % (Auto) 80.2 H Lymph % (Auto) 6.7 L [place] % (Auto) 12.6 H Eos % (Auto) 0.1 Baso % (Auto) 0.4 Neut # (Auto) 8.4 H Lymph # (Auto) 0.7 L [place] # (Auto) 1.3 H Eos # (Auto) 0.0 Baso # (Auto) 0.0 Neutrophils % (Manual) 85 H Lymphocytes % (Manual) 5 L Monocytes % (Manual) 9 Eosinophils % (Manual) 1 Platelet Estimate Normal Sodium 144 Potassium 5.0 Chloride 111 H Carbon Dioxide 17 L Anion Gap 20 BUN 60 H Creatinine 1.4 Est GFR ( Amer) > 60 Est GFR (Non-Af Amer) 52 Random Glucose 116 H Calcium 9.6 Total Bilirubin 1.3 AST 37 ALT 24 Alkaline Phosphatase 73 Total Protein 7.5 Albumin 3.6 Globulin 3.9 Albumin/Globulin Ratio 0.9 L Assessment & Plan - Assessment and Plan (Free Text) Assessment: 58 M w/ PMHx of hypertension, diastolic heart failure, and CVA (left CANDY SPREADER infarct) presents to ED for foot pain; patient appears to be fluid depleted in extravascular space, while remaining fluid full in intravascular region: Altered mental status - CT head: age (vrad)- age-appropriate cerebellar & cerebral atrophy moderate chronic micovascular disease, left occipital chronic ischemic territory the posterior cebral artery no evidence of acute intracranial pathology Hypertensive Urgency - patient not complaint w/ previous discharge meds - BP on admission 208/129 - [id number] mg TID - Imdur 20mg PO daily Infected callouses of foot - doxycycline 100 mg IV Q12H - Ceftriaxone 1mg IV Q24H - F/u Podiatry, Dr. Jason little - F/u foot xrays Pneumonia - CT chest: interstitial pulmonary edema, decompensated congestive heart failure, multifocial bronchopneumonia predominate in bases, cardiomegaly - doxycycline 100 mg IV Q12H - Ceftriaxone 1mg IV Q24H Acute CHF w/ reserved EF - previous Echo (08/2017): LV normal size, borderline LV hypertrophy, Systolic function borderline, mild septal hypokinesis - f/u repeat echo HTN - hydralizine 25mg TID - Imdur 20 mg daily Prophylaxis - DVT: Heparin 5000 units Q12H - GI: protonix 40mg IVP daily <Victor Hugo Plata P - Last Filed: 04/04/18 08:09> Results - Vital Signs Recent Vital Signs: Last Vital Signs Temp 97.6 F 04/04/18 03:02 Pulse 64 04/04/18 03:02 Resp 20 04/04/18 03:39 BP 163/108 H 04/04/18 07:28 Pulse Ox 98 04/04/18 03:02 - Labs Result Diagrams: 04/03/18 19:20 04/03/18 19:20 Labs: Laboratory Results - last 24 hr 04/03/18 04/03/18 04/04/18 19:20 19:20 05:10 WBC 10.5 D RBC 3.77 L Hgb 11.2 L D Hct 34.7 L MCV 92.1 MCH 29.6 MCHC 32.1 L RDW 16.4 H Plt Count 229 MPV 9.1 Neut % (Auto) 80.2 H Lymph % (Auto) 6.7 L [place] % (Auto) 12.6 H Eos % (Auto) 0.1 Baso % (Auto) 0.4 Neut # (Auto) 8.4 H Lymph # (Auto) 0.7 L [place] # (Auto) 1.3 H Eos # (Auto) 0.0 Baso # (Auto) 0.0 Neutrophils % (Manual) 85 H Lymphocytes % (Manual) 5 L Monocytes % (Manual) 9 Eosinophils % (Manual) 1 Platelet Estimate Normal Puncture Site Rr pCO2 22 L pO2 96 HCO3 20.6 L ABG pH 7.48 H ABG Total CO2 17.1 L ABG O2 Saturation 99.2 H ABG Base Excess -5.5 L ABG Hemoglobin 11.1 L ABG Carboxyhemoglobin 2.8 H POC ABG HHb (Measured) 0.8 ABG Methemoglobin 1.1 Shree Test Pos A-a O2 Difference 26.0 Respiratory Index 0.3 Hgb O2 Saturation 95.4 Vent Mode Room air FiO2 21.0 Sodium 144 Potassium 5.0 Chloride 111 H Carbon Dioxide 17 L Anion Gap 20 BUN 60 H Creatinine 1.4 Est GFR ( Amer) > 60 Est GFR (Non-Af Amer) 52 Random Glucose 116 H Calcium 9.6 Total Bilirubin 1.3 AST 37 ALT 24 Alkaline Phosphatase 73 Total Protein 7.5 Albumin 3.6 Globulin 3.9 Albumin/Globulin Ratio 0.9 L Attending/Attestation - Attestation I have personally seen and examined this patient.: Yes I have fully participated in the care of the patient.: Yes I have reviewed all pertinent clinical information: Yes Notes (Text): Assessment SOB CHF DD of bronchopneumonia dehydrated but high intravascular volume Uncontrolled HTN due to above Unkempt, suspect bugs vs scabies H/o CVA Infected callouses, in edematous feet AMS Homeless Noncompliance Plan Diuresis Hydralazaone, imdur, coreg Empiric abx covering pna and infected feet Echo Skin scrapes for oil film Permathrin Contact isolation for above ASA, statin to be added GI/DVT prophylaxis See orders for detail.
[2018-04-04] MEDS ORDERED: Nitroglycerin 2% Ointment Foilpak UD TOP ONE ×2 (04:02→06:15)
[2018-04-04] MEDS ORDERED: Permethrin 5% Cream(60 gm) TOP ONE (04:32)
[2018-04-04 05:18] LABS: ABG ALLEN TEST POS; ARTERIAL BLOOD GAS HCO3 20.6 mmol/L (21-28); ARTERIAL BLOOD GAS HEMOGLOBIN 11.1 g/dL (11.7-17.4); ARTERIAL BLOOD GAS O2 SAT 99.2 % (95-98); ARTERIAL BLOOD GAS PCO2 22 mm/Hg (35-45); ARTERIAL BLOOD GAS PH 7.48 (7.35-7.45); ARTERIAL BLOOD GAS PO2 96 mm/Hg (80-100); ARTERIAL BLOOD GAS TCO2 17.1 mmol/L (22-28)
[2018-04-04 08:13] LABS: BASO % 0.1 % (0.0-2.0); EOS % 0.1 % (0.0-4.0); HEMOGLOBIN 10.7 g/dL (12.0-18.0); LYMPH # 0.8 K/uL (1.0-4.3); LYMPH % 8.7 % (20.0-40.0); MEAN CELL VOLUME 92.8 fL (80.0-94.0); MEAN CORPUSCULAR HGB CONC 32.3 g/dL (33.0-37.0); MEAN PLATELET VOLUME 9.5 fL (7.2-11.7); MONO # 0.8 K/uL (0.0-0.8); MONO % 8.9 % (0.0-10.0); NEUT # 7.2 K/uL (1.8-7.0); NEUT % 82.2 % (50.0-75.0); NRBC % 0.3 % (0.0-2.0); PLATELET COUNT 196 K/uL (130-400); RBC 3.58 Mil/uL (4.40-5.90); RED CELL DISTRIBUTION WIDTH 17.4 % (11.5-14.5); WHITE BLOOD COUNT 8.8 K/uL (4.8-10.8)
--- NOTE | 2018-04-04 08:23 | CT ---
Date of service: 04/04/2018 PROCEDURE: CT HEAD WITHOUT CONTRAST. HISTORY: altered mental status COMPARISON: None available. TECHNIQUE: Axial computed tomography images were obtained through the head/brain without intravenous contrast. Radiation dose: Total exam DLP = 1032.16 mGy-cm. This CT exam was performed using one or more of the following dose reduction techniques: Automated exposure control, adjustment of the mA and/or kV according to patient size, and/or use of iterative reconstruction technique. FINDINGS: HEMORRHAGE: No intracranial hemorrhage. BRAIN: Scattered focal lucencies in the subcortical and periventricular white matter suggestive for chronic microvascular ischemic change. Encephalomalacia from an old left occipital lobe infarct with some mild ex vacuo dilatation of the posterior horn of the left lateral ventricle. Bilateral basal ganglia as well as right thalamic lacunar infarcts. Additional focal encephalomalacia in the right duenas radiata extending inferiorly to the right external capsule. VENTRICLES: Unremarkable. No hydrocephalus. CALVARIUM: Unremarkable. PARANASAL SINUSES: Moderate to severe mucosal thickening and opacification of the left maxillary sinus and ethmoid air cells. MASTOID AIR CELLS: Unremarkable as visualized. No inflammatory changes. OTHER FINDINGS: Mild soft tissue swelling overlying the right frontal cranium. IMPRESSION: Chronic microvascular ischemic changes. Encephalomalacia from an old left occipital lobe infarct with some mild ex vacuo dilatation of the posterior horn of the left lateral ventricle. Bilateral basal ganglia as well as right thalamic lacunar infarcts. Additional focal encephalomalacia in the right duenas radiata extending inferiorly to the right external capsule. Sinus mucosal disease as above. If symptoms persist, consider correlation with MRI. A preliminary report was generated at 5:25 a.m. on 04/04/[address] Harjeet Olsen from [employer].
[2018-04-04 08:37] LABS: ALB/GLOB RATIO 0.9 (1.0-2.1)
--- NOTE | 2018-04-04 08:37 | RAD ---
Date of service: 04/03/2018 PROCEDURE: CHEST RADIOGRAPH, 1 VIEW HISTORY: hypertensive COMPARISON: Portable chest 08/05/2017. FINDINGS: LUNGS: Limited patchy atelectasis in the right base. PLEURA: No pneumothorax or pleural fluid seen. CARDIOVASCULAR: Stable prominent cardiac silhouette. No pulmonary vascular congestion appreciated. OSSEOUS STRUCTURES: No significant abnormalities. VISUALIZED UPPER ABDOMEN: Normal. OTHER FINDINGS: None. IMPRESSION: Limited patchy atelectasis medial right base with remaining lung liu clear. Stable prominent cardiac silhouette.
--- NOTE | 2018-04-04 08:46 | RAD ---
Date of service: 04/03/2018 PROCEDURE: Bilateral Feet Radiographs. HISTORY: b/l foot pain COMPARISON: None. FINDINGS: No definite acute fracture, subluxation or dislocation appreciable bilaterally. Bilateral hammertoe deformities are appreciated diffusely with no destructive bony lesion evident throughout. Local soft tissues appear grossly unremarkable. Severe bilateral hallux valgus deformities are identified with degenerative changes throughout the interphalangeal joints diffusely, comprised of joint space narrowing and articular cortical sclerosis. There are large bilateral plantar calcaneal spurs. OTHER FINDINGS: None. IMPRESSION: Degenerative changes primarily in the forefoot as discussed above. Bilateral hammertoe deformities are identified diffusely. Severe hallux valgus deformities are noted. Large plantar calcaneal spurs bilaterally.
[2018-04-04 09:50] LABS: LYMPHOCYTE 10 % (20-40); MONOCYTE 6 % (0-10); NEUTROPHIL 83 % (50-75); REACTIVE LYMPHOCYTES 1 % (0-0); TOTAL CELLS COUNTED 100
[2018-04-04 09:51] LABS: ANISOCYTOSIS SLIGHT; HYPOCHROMIC SLIGHT; MICROCYTOSIS SLIGHT; PLATELET ESTIMATE NORMAL (NORMAL); POIKILOCYTOSIS SLIGHT
[2018-04-04 09:52] LABS: POLYCHROMIC SLIGHT; TEARDROP CELLS SLIGHT
[2018-04-04 10:05] LABS: BARBITURATES, UR NEGATIVE (NEGATIVE); BENZODIAZEPINES, UR NEGATIVE (NEGATIVE); OPIATES, UR NEGATIVE (NEGATIVE); PHENCYCLIDINE, UR NEGATIVE (NEGATIVE)
--- NOTE | 2018-04-04 10:10 | CP.PCM.PN ---
<Jean-Pierre Escalera - Last Filed: 04/04/18 17:00> Subjective - Date & Time of Evaluation Date of Evaluation: 04/04/18 Time of Evaluation: 10:06 - Subjective Subjective: Jean-Pierre Escalera Medicine progress note for Dr. Pearson Patient was seen and examined at bedside. Patient is resting comfortably and in no distress. Unable to obtain ROS, patient was not able to verbalize full sentences. Objective - Vital Signs/Intake and Output Vital Signs (last 24 hours): Temp Pulse Resp BP Pulse Ox 97 F L 70 20 144/89 95 04/04/18 08:56 04/04/18 08:56 04/04/18 08:56 04/04/18 08:56 04/04/18 08:56 - Medications Medications: Current Medications Heparin Sodium (Porcine) (Heparin) 5,000 units SC Q12 [facility] Hydralazine HCl (Apresoline) 25 mg PO TID [facility] Ceftriaxone Sodium 1 gm/ (Sodium Chloride) 100 mls @ 100 mls/hr IVPB DAILY [facility]; Protocol Doxycycline Hyclate 100 mg/ (Sodium Chloride) 100 mls @ 100 mls/hr IVPB Q12H [facility]; Protocol Last Admin: 04/04/18 06:32 Dose: 100 mls/hr Isosorbide Mononitrate (Ismo) 20 mg PO DAILY [facility] Lactobacillus Acidophilus (Bacid Acidophilus) 1 cap PO BID [facility] Metoprolol Tartrate (Lopressor) 50 mg PO ONCE ONE Stop: 04/04/18 22:11 Last Admin: 04/04/18 03:17 Dose: Not Given Pantoprazole Sodium (Protonix Inj) 40 mg IVP DAILY [facility] - Labs Labs: 04/04/18 08:06 04/04/18 08:06 - Additional Findings Additional findings: - Head Exam Additional comments: several scabs throughout body - Eye Exam Eye Exam: EOMI - ENT Exam ENT Exam: Mucous Membranes Dry - Respiratory Exam Respiratory Exam: absent: Rales, Rhonchi, Wheezes Additional comments: - Cardiovascular Exam Cardiovascular Exam: +S1, +S2. absent: Systolic Murmur - GI/Abdominal Exam GI & Abdominal Exam: Normal Bowel Sounds, Soft - Extremities Exam Additional comments: B/L pitting edema from feet to lower leg Tender to palpation on the plantar surface of feet and dorsal part of foot. Several callous on plantar/ dorsal side of foot Poor overall foot hygiene, malodorous. No open sores or active bleeding noted. - Neurological Exam Neurological exam: Alert - Skin Additional comments: Patient has multiple scabs healing throughout the body Excoriations noted on both upper extremities Assessment and Plan - Assessment and Plan (Free Text) Assessment: Patient is a 58 year old male with PMHx of hypertension, CHF with preserved EF, and CVA (left MONUMENT LETTERER infarct) presents to ED for foot pain and possible alcohol intoxication. Plan: History of chronic alcohol abuse - Serum alcohol level: f/u - Upon review of prior records, patient is known to present with altered mental status 2/2 alcohol intoxication - UDS: Negative - Serum alcohol level: f/u - Vitamin B12 and Folate levels: f/u - Start thiamine, folic acid, multivitamin - CT head (04/04): Chronic microvascular ischemic changes. 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 B/l basal ganglia and R thalamic lacunar infarcts. Focal encephalomalacia in the R duenas radiata. Suspected cellulitis of legs: - No evidence of cellulitis, blanchable erythema - C/w Doxycycline 100 mg IV Q12H started on 04/04 - C/w Ceftriaxone 1mg IV Q24H started on 04/04 - Lower extremities venous doppler: f/u - Received Clindamycin in the ED - Podiatry, Dr. Gomez consulted - Foot Xray (04/03): Degenerative changes of the forefoot. No acute fractures, subluxations. B/l hammertoe deformities are identified diffusely. Severe hallux valgus deformity noted. Large plantar calcaneal spurs b/l. Possible alcohol withdrawal syndrome: - Start Ativan 1mg Q6 PRN - PT/OT evaluation - Start thiamine, folic acid, multivitamin - Continue to monitor for withdrawal symptoms Hypertensive Urgency: - Possible alcohol withdrawal syndrome - Patient not compliant with previous discharge meds - C/w Hydralazine 25 mg TID - C/w Imdur 20mg PO daily Possible scabies infection: - Start Permethrin 5% TOP - leave on for 8 hours and wash all clothing - Contact precaution - Will reapply Permethrin 5% TOP in 7 days - Microbiology did not accept skin cultures since specimen collected incorrectly Possible Pneumonia: - Will repeat AP/PA/Lateral chest xray once patient is more steady - C/w Doxycycline 100 mg IV Q12H - C/w Ceftriaxone 1mg IV Q24H - Start Atrovent INH Q6 - M. pneumoniae, legionella, mycoplasma, s. pneumonia, influenza: f/u - CT chest (04/04): small to medium sized right effusion and mild right basilar atelactasis. Cardiomegaly Suspected CHF w/ reserved EF: - Echo: f/u - ProBNP: f/u - Previous Echo (08/2017): LV normal size, borderline LV hypertrophy, Systolic function borderline, mild septal hypokinesis, LVEF >50% Prophylaxis/diet: - DVT: Heparin 5000 units Q12H - GI: Protonix 40mg IVP daily - HHD Case discussed with Dr. Michel Escalera, PGY-1 <Ryland Pearson - Last Filed: 04/04/18 21:19> Objective - Vital Signs/Intake and Output Vital Signs (last 24 hours): Temp Pulse Resp BP Pulse Ox 97.4 F L 74 20 141/91 H 97 04/04/18 15:57 04/04/18 15:57 04/04/18 15:57 04/04/18 15:57 04/04/18 15:57 - Medications Medications: Current Medications Folic Acid (Folic Acid) 1 mg PO DAILY [facility] Last Admin: 04/04/18 16:30 Dose: 1 mg Furosemide (Lasix) 20 mg IVP Q12H [facility] Heparin Sodium (Porcine) (Heparin) 5,000 units SC Q12 [facility] Last Admin: 04/04/18 10:15 Dose: 5,000 units Hydralazine HCl (Apresoline) 25 mg PO TID [facility] Last Admin: 04/04/18 18:16 Dose: 25 mg Ceftriaxone Sodium 1 gm/ (Sodium Chloride) 100 mls @ 100 mls/hr IVPB DAILY [facility]; Protocol Last Admin: 04/04/18 10:16 Dose: 100 mls/hr Doxycycline Hyclate 100 mg/ (Sodium Chloride) 100 mls @ 100 mls/hr IVPB Q12H [facility]; Protocol Last Admin: 04/04/18 17:40 Dose: 100 mls/hr Ipratropium [place] (Atrovent) 0.5 mg IH RQ6 PRN PRN Reason: Shortness of Breath Isosorbide Mononitrate (Ismo) 20 mg PO DAILY [facility] Last Admin: 04/04/18 10:15 Dose: 20 mg Lactobacillus Acidophilus (Bacid Acidophilus) 1 cap PO BID [facility] Last Admin: 04/04/18 18:17 Dose: 1 cap Lorazepam (Ativan) 1 mg IVP Q6H PRN PRN Reason: Symptoms of alcohol withdrawl Last Admin: 04/04/18 18:24 Dose: 1 mg Lorazepam (Ativan) 2 mg PO Q8H [facility]; Taper Stop: 04/09/18 19:59 Multivitamins (Hexavitamin) 1 tab PO DAILY [facility] Last Admin: 04/04/18 16:10 Dose: 1 tab Pantoprazole Sodium (Protonix Inj) 40 mg IVP DAILY [facility] Last Admin: 04/04/18 10:15 Dose: 40 mg Thiamine HCl (Vitamin B1 Tab) 100 mg PO DAILY [facility] Last Admin: 04/04/18 16:10 Dose: 100 mg - Labs Labs: 04/04/18 08:06 04/04/18 08:06 Attending/Attestation - Attestation I have personally seen and examined this patient.: Yes I have fully participated in the care of the patient.: Yes I have reviewed all pertinent clinical information, including history, physical exam and plan: Yes Notes (Text): 04/04/18 20:23 Medicine Attending Note Patient was seen and examined at 2:30 PM 554 P 04/04/18 Care of this patient was gone over in detail with the resident. Please note that the patient could not provide any detail concerning: his medical history, how he came to be here, what he last remembers prior to coming to hospital, where he stays (which [facility]), if he takes any medications, when his last drink of alcohol was. He would not answer me when asked what his name was but did respond to me when calling him by his last name and did follow instructions during exam. He is resting comformtably but appeared to be tremulous when I asked him to move himself up further on the bed, with which he required some assistance from me and Nurse Ortiz. Review prior records indicated that the patient has had visits to this hospital for Alcohol Intoxication and has a history of Alcohol Abuse, Diastolic Heart Failure, HTN Urgency, Bilateral Leg Edema/Cellulitis, CVA, Nicotine Addiction Upon ROS: Patient states NO to everything General: Somnolent but easily arousable and following commands HEENT: NCA, Pupils are round and reactive to light, EOMI, NO cervical/supraclavicular/submandibular lymphadenopathy, NO thyromegaly Cardio: NS1 and NS2, NO M/R/G, NO JVD, NO hepatojugular reflux Respiratory: Bibasilar Rales and scattered expiratory wheezing GI: BSx4, Soft, ND, NO HSM, NO guarding, NO rebound tenderness Ext: Pulses are strong and equal, Capillary Refill is 2 seconds, 1+ pitting edema of feet, trace pitting edema of the ankles to just below the tibial tuberosities Neuro: exam not possible at this time Skin: Multiple excoriations and eschars from the back, chest, abdomen, down to the legs, NO ulceration noted on any of the gabriel prominences or between the webbing of his toes 1). Alcohol Withdrawl Although blood alcohol level is normal, considering finding of tremulousness on exam and history, Ativan Taper has been started Thiamine 100 mg PO 1x/day Folic Acid 1 mg PO 1x/day MVI PO 1x/day Ativan 1 mg IV Q6H PRN Agitation/Worsening of withdrawl/Seizures F/U Vitamin B12 F/U Folic Acid 2). HFpEF (Diastolic Heart Failure) Exacerbation Noted edema on lower extremities (although chronic as per prior records, patient could not provide any information if this had worsened) Admitting Chest X Ray and CT Chest indicated pulmonary vascular congestion ProBNP significantly elevated copared to prior values Prior Echo 08/2017 showed LV noramal, borderline LV hypertrophy, septal hypokinesis, and Grade I abnormal relaxation pattern Repeat Echo ordered Lasix 20 mg IV Q12H for now despite the elevated Cr: needed to help with the pulmonary congestion Was discharged back in August 2017 on Zestril and Coreg: hold the Zestril due to the elevated Cr and hold the Coreg due to acute HFpEF exacerbation Hydralazine 25 mg PO TID Isosorbide Mononitrate 20 mg PO 1x/day Head of Bed at 45 Degrees Daily Weights Follow up further recommendations from Cardiology Dr. Aguirre 3). Hx of Bilateral Leg Edema/Cellulitis Raising both legs causes the erythema (most superior aspect demarcated with black ink bilaterally) of the lower legs to disappear, there is NO warmth, and NO tenderness to palpation therefore I do NOT believe this to be cellulitis F/U Bilateral Venous Dopplers to rule out DVT Lasix 20 mg IV Q12H for now 4). Elevated BUN/Cr F/U Bilateral Renal U/S May have to discontinue the Lasix being used to treat the HFpEF Exacerbation F/U further recommendations from Nephrology Dr. Lizarraga 5). Hx HTN Hydralazine 25 mg PO TID Isosorbide Mononitrate 20 mg PO 1x/day 6). Excorations and Eschars throughout the body Possible Scabies? Permethrin 5 % Cream administered in the morning and leave on for 14 hours and then wash: nursing is aware Will likely need to be repeated on 04/10/18 7). Possible RML Pneumonia and presence of Small to Medium Right Pleural Effusion CT Chest: small to medium size right sided effusion and mild right basilar atelectasis, small opacities are also present within the middle lobe possible representing rounded atelectasis and/or infiltrate, mild pulmonary venous congestion, cardiomegaly Recephin 1 gm IV Q24H Doxycycline 100 mg IV Q12H F/U Urine Legionella Ag F/U Urine Strep pneumoniae Ag F/U Mycoplasma IgG, IgM F/U Rapid Influenza F/U Blood Culture After treatment of HFpEF exacerbation, will repeat the Chest X Ray with PA and Lateral to see if findings in RML persist or not to see if antibiotics need to be continued 8). Hx CVA This as per prior records CT Head 04/04/18: chronic microvascular changes, encephalomalacia from old left occipital lobe infarct with mild ex vacuo dilatation of the posterio horn and left lateral ventricle, encephalomalacia of the right duenas radiata, bilateral basal ganglia and right thalmic lacunar infarct ASA 81 mg PO 1x/day Crestor 5 mg PO 1x/day F/U TSH F/U T4 F/U Lipid Panel F/U HgBA1C F/U PT/OT: please note that patient required walker upon discharge in August 2017 9). Prophylaxis DVT Risk Score is 4: Age, CHF, Pneumonia, BMI 30 therefore Heparin 5,000 Units SC Q8H and will add Bilateral SCS once Venous Dopplers of legs are negative NO GI prophylaxis indicated at this time Lactobacillus 1 tab PO 2x/day as he is on antibiotics F/U PT/OT: please note that patient required walker upon discharge in August 2017 Heart Health 2 gm Na Diet Will speak with Zinc Etcher/Workforce Management Manager concerning eventual [facility] to [facility] when patient is stable Please also note that Duoneb via nebulizer will be given from 10 PM 04/04/18 through 10 PM 04/05/18 for the findings on respiratory exam. Ryland Pearson D.O.
[2018-04-04] MEDS: Lactobacillus Acidophilus 500 MU Cap PO SCH ×2 (10:18→18:17)
--- NOTE | 2018-04-04 11:46 | CT ---
Date of service: 2018-04-04 04:55:18 PROCEDURE: CT Chest without contrast HISTORY: Possible pneumonia COMPARISON: The comparison made with prior chest radiograph dated 04/03/2018... TECHNIQUE: Contiguous axial images were obtained through the chest without intravenous contrast enhancement. Sagittal and coronal reconstructions were performed. Radiation dose: Total exam DLP = 274.08 mGy-cm. This CT exam was performed using one or more of the following dose reduction techniques: Automated exposure control, adjustment of the mA and/or kV according to patient size, and/or use of iterative reconstruction technique. FINDINGS: LUNGS: There is a small to medium size right-sided effusion and mild right basilar atelectasis. Small opacities are also present within the middle lobe possibly representing rounded atelectasis and/or infiltrates. There also appears to be some mild dependent atelectasis in the left lung base. Trace right-sided effusion. Minimal linear scarring changes left lingular region. Suspect mild underlying pulmonary venous congestive changes.. There also appears to be a few scattered parenchymal calcifications likely representing granulomata within both lower lung liu as well. MEDIASTINUM: The heart is enlarged. No significant pericardial effusion.. Mild aortic atherosclerotic calcification.. Trachea is midline and patent.. There may be a small amount of adherent secretion along the posterior margin of the left mainstem bronchus and possibly some adherent Linear secretions at the level of the distal trachea/cece.. Tiny hiatal hernia is felt to present. PLEURA: As above. No pneumothorax. BONES: Mild multilevel degenerative spondylosis of the thoracic spine. There are no acute compression fractures nor retropulsed fragments. No suspicious lytic or blastic lesions are identified. UPPER ABDOMEN: Grossly unremarkable. OTHER FINDINGS: None. IMPRESSION: Small to medium size right-sided effusion and mild right basilar atelectasis. Small opacities are also present within the middle lobe possibly representing rounded atelectasis and/or infiltrates. There also appears to be some mild dependent atelectasis in the left lung base. Trace right-sided effusion. Minimal linear scarring changes left lingular region. Suspect mild underlying pulmonary venous congestive changes.. There also appears to be a few scattered parenchymal calcifications likely representing granulomata within both lower lung liu as well.. Cardiomegaly. See above discussion for additional findings and details.
[2018-04-04] MEDS ORDERED: Ipratropium 0.02% Inhal Soln (0.5 mg/2.5 ml) UD IH PRN (15:22)
[2018-04-04] MEDS: Multiple Vitamins Tab PO SCH (16:10)
[2018-04-04] MEDS ORDERED: Ipratropium 17 mcg/puff-200 puff/12.5 gm HFA Inh IH SCH (17:15)
[2018-04-04 17:27] LABS: B-TYPE NATRIURETIC PEPTIDE 29300 pg/mL (0-900)
--- NOTE | 2018-04-04 21:23 | CP.PCM.PN ---
Subjective - Date & Time of Evaluation Date of Evaluation: 04/04/18 Time of Evaluation: 14:30 - Subjective Subjective: Medicine Attending Note Patient was seen and examined at 2:30 PM 554 P 04/04/18 Care of this patient was gone over in detail with the resident. Please note that the patient could not provide any detail concerning: his medical history, how he came to be here, what he last remembers prior to coming to hospital, where he stays (which [facility]), if he takes any medications, when his last drink of alcohol was. He would not answer me when asked what his name was but did respond to me when calling him by his last name and did follow instructions during exam. He is resting comformtably but appeared to be tremulous when I asked him to move himself up further on the bed, with which he required some assistance from me and Nurse Ortiz. Review of prior records indicated that the patient has had visits to this hospital for Alcohol Intoxication and has a history of Alcohol Abuse, Diastolic Heart Failure, HTN Urgency, Bilateral Leg Edema/Cellulitis, CVA, Nicotine Addiction Upon ROS: Patient states NO to everything General: Somnolent but easily arousable and following commands HEENT: NCA, Pupils are round and reactive to light, EOMI, NO cervical/supraclavicular/submandibular lymphadenopathy, NO thyromegaly Cardio: NS1 and NS2, NO M/R/G, NO JVD, NO hepatojugular reflux Respiratory: Bibasilar Rales and scattered expiratory wheezing GI: BSx4, Soft, ND, NO HSM, NO guarding, NO rebound tenderness Ext: Pulses are strong and equal, Capillary Refill is 2 seconds, 1+ pitting edema of feet, trace pitting edema of the ankles to just below the tibial tuberosities Neuro: exam not possible at this time Skin: Multiple excoriations and eschars from the back, chest, abdomen, down to the legs, NO ulceration noted on any of the gabriel prominences or between the webbing of his toes 1). Alcohol Withdrawl Although blood alcohol level is normal, considering finding of tremulousness on exam and history, Ativan Taper has been started Thiamine 100 mg PO 1x/day Folic Acid 1 mg PO 1x/day MVI PO 1x/day Ativan 1 mg IV Q6H PRN Agitation/Worsening of withdrawl/Seizures F/U Vitamin B12 F/U Folic Acid 2). HFpEF (Diastolic Heart Failure) Exacerbation Noted edema on lower extremities (although chronic as per prior records, patient could not provide any information if this had worsened) Admitting Chest X Ray and CT Chest indicated pulmonary vascular congestion ProBNP significantly elevated copared to prior values Prior Echo 08/2017 showed LV noramal, borderline LV hypertrophy, septal hypokinesis, and Grade I abnormal relaxation pattern Repeat Echo ordered Lasix 20 mg IV Q12H for now despite the elevated Cr: needed to help with the pulmonary congestion Was discharged back in August 2017 on Zestril and Coreg: hold the Zestril due to the elevated Cr and hold the Coreg due to acute HFpEF exacerbation Hydralazine 25 mg PO TID Isosorbide Mononitrate 20 mg PO 1x/day Head of Bed at 45 Degrees Daily Weights Follow up further recommendations from Cardiology Dr. Dobbs 3). Hx of Bilateral Leg Edema/Cellulitis Raising both legs causes the erythema (most superior aspect demarcated with black ink bilaterally) of the lower legs to disappear, there is NO warmth, and NO tenderness to palpation therefore I do NOT believe this to be cellulitis F/U Bilateral Venous Dopplers to rule out DVT Lasix 20 mg IV Q12H for now 4). Elevated BUN/Cr F/U Bilateral Renal U/S May have to discontinue the Lasix being used to treat the HFpEF Exacerbation if the Cr continues to rise F/U further recommendations from Nephrology Dr. Lizarraga 5). Hx HTN Hydralazine 25 mg PO TID Isosorbide Mononitrate 20 mg PO 1x/day 6). Excorations and Eschars throughout the body Possible Scabies? Permethrin 5 % Cream administered in the morning and leave on for 14 hours and then wash: nursing is aware Will likely need to be repeated on 04/10/18 7). Possible RML Pneumonia and presence of Small to Medium Right Pleural Effusion CT Chest: small to medium size right sided effusion and mild right basilar atelectasis, small opacities are also present within the middle lobe possible representing rounded atelectasis and/or infiltrate, mild pulmonary venous congestion, cardiomegaly Recephin 1 gm IV Q24H Doxycycline 100 mg IV Q12H F/U Urine Legionella Ag F/U Urine Strep pneumoniae Ag F/U Mycoplasma IgG, IgM F/U Rapid Influenza F/U Blood Culture After treatment of HFpEF exacerbation/diuresis, will repeat the Chest X Ray with PA and Lateral to see if findings in RML persist or not to see if antibiotics need to be continued 8). Hx CVA This as per prior records CT Head 04/04/18: chronic microvascular changes, encephalomalacia from old left occipital lobe infarct with mild ex vacuo dilatation of the posterio horn and left lateral ventricle, encephalomalacia of the right duenas radiata, bilateral basal ganglia and right thalmic lacunar infarct ASA 81 mg PO 1x/day Crestor 5 mg PO 1x/day F/U TSH F/U T4 F/U Lipid Panel F/U HgBA1C 9). Hx Nicotine Addiction Patient stated that he no longer smoked 10). Prophylaxis DVT Risk Score is 4: Age, CHF, Pneumonia, BMI 30 therefore Heparin 5,000 Units SC Q8H and will add Bilateral SCS once Venous Dopplers of legs are negative NO GI prophylaxis indicated at this time Lactobacillus 1 tab PO 2x/day as he is on antibiotics F/U PT/OT: please note that patient required walker upon discharge in August 2017 Heart Health 2 gm Na Diet Will speak with Press Helper/Jig Hand concerning eventual discharge to Residential when patient is stable Please also note that Duoneb via nebulizer will be given from 10 PM 04/04/18 through 10 PM 04/05/18 for the findings on respiratory exam. Ryland Pearson D.O. Objective - Vital Signs/Intake and Output Vital Signs (last 24 hours): Temp Pulse Resp BP Pulse Ox 97.4 F L 74 20 141/91 H 97 04/04/18 15:57 04/04/18 15:57 04/04/18 15:57 04/04/18 15:57 04/04/18 15:57 - Medications Medications: Current Medications Albuterol/Ipratropium (Duoneb 3 Mg/0.5 Mg (3 Ml) Ud) 3 ml INH RQ6 [facility] Stop: 04/05/18 22:00 Aspirin (Ecotrin) 81 mg PO DAILY [facility] Folic Acid (Folic Acid) 1 mg PO DAILY [facility] Last Admin: 04/04/18 16:30 Dose: 1 mg Furosemide (Lasix) 20 mg IVP Q12H [facility] Heparin Sodium (Porcine) (Heparin) 5,000 units SC Q12 [facility] Last Admin: 04/04/18 10:15 Dose: 5,000 units Hydralazine HCl (Apresoline) 25 mg PO TID [facility] Last Admin: 04/04/18 18:16 Dose: 25 mg Ceftriaxone Sodium 1 gm/ (Sodium Chloride) 100 mls @ 100 mls/hr IVPB DAILY [facility]; Protocol Last Admin: 04/04/18 10:16 Dose: 100 mls/hr Doxycycline Hyclate 100 mg/ (Sodium Chloride) 100 mls @ 100 mls/hr IVPB Q12H [facility]; Protocol Last Admin: 04/04/18 17:40 Dose: 100 mls/hr Ipratropium [place] (Atrovent) 0.5 mg IH RQ6 PRN PRN Reason: Shortness of Breath Isosorbide Mononitrate (Ismo) 20 mg PO DAILY [facility] Last Admin: 04/04/18 10:15 Dose: 20 mg Lactobacillus Acidophilus (Bacid Acidophilus) 1 cap PO BID [facility] Last Admin: 04/04/18 18:17 Dose: 1 cap Lorazepam (Ativan) 1 mg IVP Q6H PRN PRN Reason: Symptoms of alcohol withdrawl Last Admin: 04/04/18 18:24 Dose: 1 mg Lorazepam (Ativan) 2 mg PO Q8H [facility]; Taper Stop: 04/09/18 19:59 Multivitamins (Hexavitamin) 1 tab PO DAILY [facility] Last Admin: 04/04/18 16:10 Dose: 1 tab Pantoprazole Sodium (Protonix Inj) 40 mg IVP DAILY [facility] Last Admin: 04/04/18 10:15 Dose: 40 mg Rosuvastatin Cal[place] (Crestor) 5 mg PO HS [facility] Thiamine HCl (Vitamin B1 Tab) 100 mg PO DAILY [facility] Last Admin: 04/04/18 16:10 Dose: 100 mg - Labs Labs: 04/04/18 08:06 04/04/18 08:06
[2018-04-04] MEDS ORDERED: Labetalol 5mg/ml (4ml) IVP STA (23:33)
[2018-04-05] MEDS: Albuterol-Ipratrop 3 mg / 0.5 (3 ml) UD INH SCH ×4 (02:36→20:02)
--- NOTE | 2018-04-05 06:49 | CP.PCM.PN ---
<Jono Moon - Last Filed: 04/05/18 06:49> Subjective - Date & Time of Evaluation Date of Evaluation: 04/05/18 Time of Evaluation: 06:49 - Subjective Subjective: Patient seen and examined at bedside. Objective - Vital Signs/Intake and Output Vital Signs (last 24 hours): Temp Pulse Resp BP Pulse Ox 97.7 F 79 20 153/84 H 99 04/04/18 23:22 04/04/18 23:22 04/04/18 23:22 04/05/18 01:00 04/04/18 23:22 Intake and Output: 04/04/18 04/05/18 18:59 06:59 Output Total 800 Balance -800 - Medications Medications: Current Medications Albuterol/Ipratropium (Duoneb 3 Mg/0.5 Mg (3 Ml) Ud) 3 ml INH RQ6 [facility] Stop: 04/05/18 22:00 Last Admin: 04/05/18 02:36 Dose: Not Given Aspirin (Ecotrin) 81 mg PO DAILY [facility] Folic Acid (Folic Acid) 1 mg PO DAILY [facility] Last Admin: 04/04/18 16:30 Dose: 1 mg Furosemide (Lasix) 20 mg IVP Q12H [facility] Last Admin: 04/04/18 21:35 Dose: 20 mg Heparin Sodium (Porcine) (Heparin) 5,000 units SC Q12 [facility] Last Admin: 04/04/18 21:25 Dose: 5,000 units Hydralazine HCl (Apresoline) 25 mg PO TID [facility] Last Admin: 04/04/18 18:16 Dose: 25 mg Ceftriaxone Sodium 1 gm/ (Sodium Chloride) 100 mls @ 100 mls/hr IVPB DAILY [facility]; Protocol Last Admin: 04/04/18 10:16 Dose: 100 mls/hr Doxycycline Hyclate 100 mg/ (Sodium Chloride) 100 mls @ 100 mls/hr IVPB Q12H [facility]; Protocol Last Admin: 04/05/18 04:40 Dose: 100 mls/hr Ipratropium [place] (Atrovent) 0.5 mg IH RQ6 PRN PRN Reason: Shortness of Breath Isosorbide Mononitrate (Ismo) 20 mg PO DAILY [facility] Last Admin: 04/04/18 10:15 Dose: 20 mg Lactobacillus Acidophilus (Bacid Acidophilus) 1 cap PO BID [facility] Last Admin: 04/04/18 18:17 Dose: 1 cap Lorazepam (Ativan) 1 mg IVP Q6H PRN PRN Reason: Symptoms of alcohol withdrawl Last Admin: 04/04/18 18:24 Dose: 1 mg Lorazepam (Ativan) 2 mg PO Q8H [facility]; Taper Stop: 04/09/18 19:59 Last Admin: 04/05/18 04:12 Dose: 2 mg Multivitamins (Hexavitamin) 1 tab PO DAILY [facility] Last Admin: 04/04/18 16:10 Dose: 1 tab Pantoprazole Sodium (Protonix Inj) 40 mg IVP DAILY [facility] Last Admin: 04/04/18 10:15 Dose: 40 mg Rosuvastatin Calcium (Crestor) 5 mg PO HS [facility] Last Admin: 04/04/18 21:25 Dose: 5 mg Thiamine HCl (Vitamin B1 Tab) 100 mg PO DAILY [facility] Last Admin: 04/04/18 16:10 Dose: 100 mg - Labs Labs: 04/04/18 08:06 04/04/18 08:06 <Ryland Pearson - Last Filed: 04/05/18 08:16> Objective - Vital Signs/Intake and Output Vital Signs (last 24 hours): Temp Pulse Resp BP Pulse Ox 97.7 F 72 20 178/110 H 100 04/04/18 23:22 04/05/18 07:58 04/05/18 07:58 04/05/18 07:59 04/05/18 07:58 Intake and Output: 04/05/18 04/05/18 06:59 18:59 Output Total 800 Balance -800 - Medications Medications: Current Medications Albuterol/Ipratropium (Duoneb 3 Mg/0.5 Mg (3 Ml) Ud) 3 ml INH RQ6 [facility] Stop: 04/05/18 22:00 Last Admin: 04/05/18 07:52 Dose: 3 ml Aspirin (Ecotrin) 81 mg PO DAILY [facility] Folic Acid (Folic Acid) 1 mg PO DAILY [facility] Last Admin: 04/04/18 16:30 Dose: 1 mg Furosemide (Lasix) 20 mg IVP Q12H [facility] Last Admin: 04/05/18 07:59 Dose: 20 mg Heparin Sodium (Porcine) (Heparin) 5,000 units SC Q12 [facility] Last Admin: 04/04/18 21:25 Dose: 5,000 units Hydralazine HCl (Apresoline) 25 mg PO TID [facility] Last Admin: 04/04/18 18:16 Dose: 25 mg Ceftriaxone Sodium 1 gm/ (Sodium Chloride) 100 mls @ 100 mls/hr IVPB DAILY [facility]; Protocol Last Admin: 04/04/18 10:16 Dose: 100 mls/hr Doxycycline Hyclate 100 mg/ (Sodium Chloride) 100 mls @ 100 mls/hr IVPB Q12H [facility]; Protocol Last Admin: 04/05/18 04:40 Dose: 100 mls/hr Ipratropium [place] (Atrovent) 0.5 mg IH RQ6 PRN PRN Reason: Shortness of Breath Isosorbide Mononitrate (Ismo) 20 mg PO DAILY [facility] Last Admin: 04/04/18 10:15 Dose: 20 mg Lactobacillus Acidophilus (Bacid Acidophilus) 1 cap PO BID [facility] Last Admin: 04/04/18 18:17 Dose: 1 cap Lorazepam (Ativan) 1 mg IVP Q6H PRN PRN Reason: Symptoms of alcohol withdrawl Last Admin: 04/04/18 18:24 Dose: 1 mg Lorazepam (Ativan) 2 mg PO Q8H [facility]; Taper Stop: 04/09/18 19:59 Last Admin: 04/05/18 04:12 Dose: 2 mg Methylprednisolone (Solu-Medrol) 125 mg IVP ONCE ONE Stop: 04/05/18 09:01 Multivitamins (Hexavitamin) 1 tab PO DAILY [facility] Last Admin: 04/04/18 16:10 Dose: 1 tab Pantoprazole Sodium (Protonix Inj) 40 mg IVP DAILY [facility] Last Admin: 04/04/18 10:15 Dose: 40 mg Rosuvastatin Calcium (Crestor) 5 mg PO HS [facility] Last Admin: 04/04/18 21:25 Dose: 5 mg Thiamine HCl (Vitamin B1 Tab) 100 mg PO DAILY [facility] Last Admin: 04/04/18 16:10 Dose: 100 mg - Labs Labs: 04/05/18 06:57 Attending/Attestation - Attestation I have personally seen and examined this patient.: Yes I have fully participated in the care of the patient.: Yes I have reviewed all pertinent clinical information, including history, physical exam and plan: Yes Notes (Text): 04/05/18 08:06 Medicine Attending Note Patient was seen and examined at 7:45 AM 554 P 04/05/18 Please note that on 04/04/18 patient could not provide any detail concerning: his medical history, how he came to be here, what he last remembers prior to coming to hospital, where he stays (which nursing home), if he takes any medications, when his last drink of alcohol was. Review of prior records on 04/04/18 indicated that the patient has had visits to this hospital for Alcohol Intoxication and has a history of Alcohol Abuse, Diastolic Heart Failure, HTN Urgency, Bilateral Leg Edema/Cellulitis, CVA, Nicotine Addiction He is currently being treated for likely Alcohol Withdrawl, HFpEF Exacerbation, Possible RML Pneumonia, Possible Scabies. Patient still with bilateral expiratory wheezing in the lower lung liu: Solumedrol 125 mg IV ordered x 1 dose and he is receiving Douneb Q6H through 10 PM tonight. Considering his history of smoking in the past, could this be COPD Exerbation as well considering flattening of diaphragms on Chest X Ray? Will get Pulmonology Dr. Lebron input. Echocardiogram and Bilateral Venous Dopplers are pending performance and spoke with Nurse Breann to make sure that they are done today. He is on Day 2/5 Ativan Taper: this may account for his somnolence this morning. However the tremulousness is not present on today's exam. Blood pressure is still elevated but this could be secondary to the likely Alcohol Withdrawl. He is on Lasix (which may have to be held due to the elevated BUN/Cr), Imdur, and Hydralazine. Will need to follow up with further recommendations from Cardiology Dr. Dobbs (for the HFpEF Exacerbation), Nephrology Dr. Lizarraga (for the elevated BUN/Cr), and Pulmonology Dr. Lebron (for the possible COPD Exacerbation) Please see Assessment and Plans below for further details. Upon ROS: Patient is arousable but not responding to questions due somnolence General: Somnolent but easily arousable but not following commands HEENT: NCA, Pupils are round and reactive to light, NO cervical/suprac lavicular/submandibular lymphadenopathy, NO thyromegaly Cardio: NS1 and NS2, NO M/R/G, NO JVD, NO hepatojugular reflux Respiratory: Faint Bibasilar Rales and scattered expiratory wheezing in the lower lung liu GI: BSx4, Soft, ND, NO HSM, NO guarding, NO rebound tenderness Ext: Pulses are strong and equal, Capillary Refill is 2 seconds, 1+ pitting edema of feet, trace pitting edema of the ankles to just below the tibial tuberosities Neuro: exam not possible at this time Skin: Multiple excoriations and eschars from the back, chest, abdomen, down to the legs, NO ulceration noted on any of the gabriel prominences or between the webbing of his toes 1). Alcohol Withdrawl Although blood alcohol level is normal, considering finding of tremulousness on exam and history, Ativan Taper has been started Thiamine 100 mg PO 1x/day Folic Acid 1 mg PO 1x/day MVI PO 1x/day Ativan 1 mg IV Q6H PRN Agitation/Worsening of withdrawl/Seizures F/U Vitamin B12 F/U Folic Acid 2). HFpEF (Diastolic Heart Failure) Exacerbation Noted edema on lower extremities (although chronic as per prior records, patient could not provide any information if this had worsened) Admitting Chest X Ray and CT Chest indicated pulmonary vascular congestion ProBNP significantly elevated copared to prior values Prior Echo 08/2017 showed LV noramal, borderline LV hypertrophy, septal hypokinesis, and Grade I abnormal relaxation pattern Repeat Echo ordered Lasix 20 mg IV Q12H for now despite the elevated Cr: needed to help with the pulmonary congestion Was discharged back in August 2017 on Zestril and Coreg: hold the Zestril due to the elevated Cr and hold the Coreg due to acute HFpEF exacerbation Hydralazine 25 mg PO TID Isosorbide Mononitrate 20 mg PO 1x/day Head of Bed at 45 Degrees Daily Weights Follow up further recommendations from Cardiology Dr. Dobbs 3). Hx of Bilateral Leg Edema/Cellulitis Raising both legs causes the erythema (most superior aspect demarcated with black ink bilaterally) of the lower legs to disappear, there is NO warmth, and NO tenderness to palpation therefore I do NOT believe this to be cellulitis F/U Bilateral Venous Dopplers to rule out DVT Lasix 20 mg IV Q12H for now 4). Elevated BUN/Cr F/U Bilateral Renal U/S report May have to discontinue the Lasix being used to treat the HFpEF Exacerbation if the Cr continues to rise F/U further recommendations from Nephrology Dr. Lizarraga 5). Hx HTN Hydralazine 25 mg PO TID Isosorbide Mononitrate 20 mg PO 1x/day 6). Excorations and Eschars throughout the body Possible Scabies? Permethrin 5 % Cream administered in the morning and leave on for 14 hours and then wash: nursing is aware Will likely need to be repeated on 04/10/18 7). Possible RML Pneumonia and presence of Small to Medium Right Pleural Effusion CT Chest: small to medium size right sided effusion and mild right basilar atelectasis, small opacities are also present within the middle lobe possible representing rounded atelectasis and/or infiltrate, mild pulmonary venous c ongestion, cardiomegaly Recephin 1 gm IV Q24H Doxycycline 100 mg IV Q12H F/U Urine Legionella Ag F/U Urine Strep pneumoniae Ag F/U Mycoplasma IgG, IgM F/U Rapid Influenza F/U Blood Culture After treatment of HFpEF exacerbation/diuresis, will repeat the Chest X Ray with PA and Lateral to see if findings in RML persist or not to see if antibiotics need to be continued 8). Hx CVA This as per prior records CT Head 04/04/18: chronic microvascular changes, encephalomalacia from old left occipital lobe infarct with mild ex vacuo dilatation of the posterio horn and left lateral ventricle, encephalomalacia of the right duenas radiata, bilateral basal ganglia and right thalmic lacunar infarct ASA 81 mg PO 1x/day Crestor 5 mg PO 1x/day F/U TSH F/U T4 F/U Lipid Panel F/U HgBA1C 9). Hx Nicotine Addiction and Possible COPD Exacerbatoin Could there be possible COPD with exacerbation considering the wheezing noted on exam and the flattening of diaphragm on admitting chest x ray? Patient stated that he no longer smoked 10). Prophylaxis DVT Risk Score is 4: Age, CHF, Pneumonia, BMI 30 therefore Heparin 5,000 Units SC Q8H and will add Bilateral SCS once Venous Dopplers of legs are negative NO GI prophylaxis indicated at this time Lactobacillus 1 tab PO 2x/day as he is on antibiotics F/U PT/OT: please note that patient required walker upon discharge in August 2017 Heart Health 2 gm Na Diet Will speak with Gate Manager/Fashion Adviser concerning eventual discharge to [facility] when patient is stable Please also note that Duoneb via nebulizer will be given from 10 PM 04/04/18 through 10 PM 04/05/18 for the findings on respiratory exam. Ryland Pearson D.O.
[2018-04-05 07:26] LABS: BASO % 0.2 % (0.0-2.0); EOS # 0.2 K/uL (0.0-0.7); EOS % 1.9 % (0.0-4.0); HEMOGLOBIN 11.1 g/dL (12.0-18.0); LYMPH % 12.5 % (20.0-40.0); MEAN CORPUSCULAR HEMOGLOBIN 29.5 pg (27.0-31.0); MEAN CORPUSCULAR HGB CONC 32.6 g/dL (33.0-37.0); MEAN PLATELET VOLUME 9.8 fL (7.2-11.7); NEUT # 5.9 K/uL (1.8-7.0); NEUT % 73.4 % (50.0-75.0); NRBC % 0.4 % (0.0-2.0); RBC 3.76 Mil/uL (4.40-5.90)
[2018-04-05 07:28] LABS: LDL CHOLESTEROL 81 mg/dL (0-129)
[2018-04-05 07:29] LABS: MEAN CELL VOLUME 90.6 fL (80.0-94.0)
[2018-04-05 08:06] LABS: ALB/GLOB RATIO 0.9 (1.0-2.1); ALBUMIN 2.9 g/dL (3.5-5.0); ALT/SGPT 38 U/L (21-72); AST/SGOT 39 U/L (17-59); BLOOD UREA NITROGEN 71 mg/dL (9-20); CALCIUM 8.5 mg/dl (8.6-10.4); GFR NON-AFRICAN AMERICAN 39; HDL CHOLESTEROL 21 mg/dL (30-70)
[2018-04-05 08:21] LABS: FOLATE > 20.0 ng/mL
[2018-04-05 09:00] LABS: STREP PNEUMONIAE NEGATIVE (NEGATIVE)
--- NOTE | 2018-04-05 09:52 | CP.PCM.CON ---
<Marcos Caraballo - Last Filed: 04/05/18 15:00> History of Present Illness - History of Present Illness History of Present Illness: Nephrology consult note for Dr. Lizarraga's service - Tara Caraballo PGY3 HPI: Patient is a 58yo male with past medical history of uncontrolled hypertension, diastolic CHF, CVA that [facility] with c/o foot pain. He had reported falling prior to arrival and endorsed lower extremity pain as a result. History limited however due to patient being a poor historian/medical status. 12-point ROS limited as a result. Nephrology consulted for evaluation of acute kidney injury. PMHx: as stated above PSHx: denies Allergies: NKDA Family Hx: Denies Social Hx: Tobacco use of 1 PPD >40 years; denies alcohol and illicit drug use, homeless Past Patient History - Infectious Disease Hx of Infectious Diseases: None - Tetanus Immunizations Tetanus Immunization: Unknown - Past Medical History & Family History Past Medical History?: Yes - Past Social History Smoking Status: Current Some Days Smoker - CARDIAC Hx Congestive Heart Failure: No Hx Hypercholesterolemia: No Hx Hypertension: Yes - PULMONARY Hx Chronic Obstructive Pulmonary Disease (COPD): No - NEUROLOGICAL Hx Seizures: No - HEENT Hx HEENT Problems: No - RENAL Hx Chronic Kidney Disease: No - ENDOCRINE/METABOLIC Hx Hypothyroidism: No - HEMATOLOGICAL/ONCOLOGICAL Hx Human Immunodeficiency Virus (HIV): No - INTEGUMENTARY Hx Dermatological Problems: No - MUSCULOSKELETAL/RHEUMATOLOGICAL Hx Arthritis: No Hx Rheumatoid Arthritis: No - GASTROINTESTINAL Hx Gastrointestinal Disorders: No - GENITOURINARY/GYNECOLOGICAL Hx Sexually Transmitted Disorders: No - PSYCHIATRIC Hx Substance Use: No - SURGICAL HISTORY Hx Surgeries: No - ANESTHESIA Hx Anesthesia: No Hx Anesthesia Reactions: No Meds Allergies/Adverse Reactions: Allergies Allergy/AdvReac Type Severity Reaction Status Date / Time No Known Allergies Allergy Verified 04/03/18 17:27 - Medications Medications: Current Medications Albuterol/Ipratropium (Duoneb 3 Mg/0.5 Mg (3 Ml) Ud) 3 ml INH RQ6 [facility] Stop: 04/05/18 22:00 Last Admin: 04/05/18 07:52 Dose: 3 ml Aspirin (Ecotrin) 81 mg PO DAILY [facility] Folic Acid (Folic Acid) 1 mg PO DAILY [facility] Last Admin: 04/04/18 16:30 Dose: 1 mg Furosemide (Lasix) 20 mg IVP Q12H [facility] Last Admin: 04/05/18 07:59 Dose: 20 mg Heparin Sodium (Porcine) (Heparin) 5,000 units SC Q12 [facility] Last Admin: 04/04/18 21:25 Dose: 5,000 units Hydralazine HCl (Apresoline) 25 mg PO TID [facility] Last Admin: 04/04/18 18:16 Dose: 25 mg Ceftriaxone Sodium 1 gm/ (Sodium Chloride) 100 mls @ 100 mls/hr IVPB DAILY [facility]; Protocol Last Admin: 04/04/18 10:16 Dose: 100 mls/hr Doxycycline Hyclate 100 mg/ (Sodium Chloride) 100 mls @ 100 mls/hr IVPB Q12H [facility]; Protocol Last Admin: 04/05/18 04:40 Dose: 100 mls/hr Ipratropium [place] (Atrovent) 0.5 mg IH RQ6 PRN PRN Reason: Shortness of Breath Isosorbide Mononitrate (Ismo) 20 mg PO DAILY [facility] Last Admin: 04/04/18 10:15 Dose: 20 mg Lactobacillus Acidophilus (Bacid Acidophilus) 1 cap PO BID [facility] Last Admin: 04/04/18 18:17 Dose: 1 cap Lorazepam (Ativan) 1 mg IVP Q6H PRN PRN Reason: Symptoms of alcohol withdrawl Last Admin: 04/04/18 18:24 Dose: 1 mg Lorazepam (Ativan) 2 mg PO Q8H [facility]; Taper Stop: 04/09/18 19:59 Last Admin: 04/05/18 04:12 Dose: 2 mg Multivitamins (Hexavitamin) 1 tab PO DAILY [facility] Last Admin: 04/04/18 16:10 Dose: 1 tab Pantoprazole Sodium (Protonix Inj) 40 mg IVP DAILY [facility] Last Admin: 04/04/18 10:15 Dose: 40 mg Rosuvastatin Calcium (Crestor) 5 mg PO HS [facility] Last Admin: 04/04/18 21:25 Dose: 5 mg Thiamine HCl (Vitamin B1 Tab) 100 mg PO DAILY [facility] Last Admin: 04/04/18 16:10 Dose: 100 mg Physical Exam - Constitutional Appears: No Acute Distress - Head Exam Head Exam: ATRAUMATIC, NORMOCEPHALIC - Eye Exam Eye Exam: EOMI, PERRL. absent: Scleral icterus - ENT Exam ENT Exam: Mucous Membranes Moist - Neck Exam Neck exam: Positive for: Normal Inspection - Respiratory Exam Respiratory Exam: absent: Rales, Rhonchi, Wheezes - Cardiovascular Exam Cardiovascular Exam: RRR, +S1, +S2. absent: Gallop, JVD, Rubs - GI/Abdominal Exam GI & Abdominal Exam: Soft. absent: Distended, Firm, Guarding, Rebound, Rigid, Tenderness - Extremities Exam Additional comments: bilateral lower extremity 2+ pitting edema - Neurological Exam Neurological exam: Alert - Psychiatric Exam Psychiatric exam: Normal Affect, Normal Mood - Skin Skin Exam: Dry, Warm Additional comments: multiple callouses on plantar and dorsal aspects of foot Results - Vital Signs Recent Vital Signs: Last Vital Signs Temp 97.7 F 04/04/18 23:22 Pulse 80 04/05/18 08:08 Resp 20 04/05/18 07:58 BP 178/110 H 04/05/18 07:59 Pulse Ox 100 04/05/18 07:58 - Labs Result Diagrams: 04/05/18 06:57 04/05/18 06:57 Labs: Laboratory Results - last 24 hr 04/04/18 04/04/18 04/04/18 08:06 09:12 16:50 WBC RBC Hgb Hct MCV MCH MCHC RDW Plt Count MPV Neut % (Auto) Lymph % (Auto) Lucas % (Auto) Eos % (Auto) Baso % (Auto) Neut # (Auto) Lymph # (Auto) Lucas # (Auto) Eos # (Auto) Baso # (Auto) Neutrophils % (Manual) 83 H Lymphocytes % (Manual) 10 L Reactive Lymphs % 1 H Monocytes % (Manual) 6 Platelet Estimate Normal Polychromasia Slight Hypochromasia (manual) Slight Poikilocytosis (manual Slight Anisocytosis (manual) Slight Microcytosis (manual) Slight Macrocytosis (manual) Slight Tear Drop Cells Slight Sodium Potassium Chloride Carbon Dioxide Anion Gap BUN Creatinine Est GFR ( Amer) Est GFR (Non-Af Amer) Random Glucose Calcium Total Bilirubin AST ALT Alkaline Phosphatase NT-Pro-B Natriuret Pep 26661 H Total Protein Albumin Globulin Albumin/Globulin Ratio Triglycerides Cholesterol LDL Cholesterol Direct HDL Cholesterol Vitamin B12 Folate Free T4 TSH 3rd Generation Urine Opiates Screen Negative Urine Methadone Screen Negative Ur Barbiturates Screen Negative Ur Phencyclidine Scrn Negative Ur Amphetamines Screen Negative U Benzodiazepines Scrn Negative U Oth Cocaine Metabols Negative U Cannabinoids Screen Negative Alcohol, Quantitative < 10 Influenza Typ A,B (EIA) Ur L.pneumophila Ag S. pneumoniae Antigen 04/04/18 04/04/18 04/05/18 20:29 22:42 03:30 WBC RBC Hgb Hct MCV MCH MCHC RDW Plt Count MPV Neut % (Auto) Lymph % (Auto) Lucas % (Auto) Eos % (Auto) Baso % (Auto) Neut # (Auto) Lymph # (Auto) Lucas # (Auto) Eos # (Auto) Baso # (Auto) Neutrophils % (Manual) Lymphocytes % (Manual) Reactive Lymphs % Monocytes % (Manual) Platelet Estimate Polychromasia Hypochromasia (manual) Poikilocytosis (manual Anisocytosis (manual) Microcytosis (manual) Macrocytosis (manual) Tear Drop Cells Sodium Potassium Chloride Carbon Dioxide Anion Gap BUN Creatinine Est GFR ( Amer) Est GFR (Non-Af Amer) Random Glucose Calcium Total Bilirubin AST ALT Alkaline Phosphatase NT-Pro-B Natriuret Pep Total Protein Albumin Globulin Albumin/Globulin Ratio Triglycerides Cholesterol LDL Cholesterol Direct HDL Cholesterol Vitamin B12 Folate Free T4 TSH 3rd Generation Urine Opiates Screen Urine Methadone Screen Ur Barbiturates Screen Ur Phencyclidine Scrn Ur Amphetamines Screen U Benzodiazepines Scrn U Oth Cocaine Metabols U Cannabinoids Screen Alcohol, Quantitative Influenza Typ A,B (EIA) Negative for flu a/b Ur L.pneumophila Ag Negative S. pneumoniae Antigen Negative 04/05/18 04/05/18 04/05/18 06:57 06:57 06:57 WBC 8.0 RBC 3.76 L Hgb 11.1 L Hct 34.1 L MCV 90.6 D MCH 29.5 MCHC 32.6 L RDW 17.0 H Plt Count 196 MPV 9.8 Neut % (Auto) 73.4 Lymph % (Auto) 12.5 L Lucas % (Auto) 12.0 H Eos % (Auto) 1.9 Baso % (Auto) 0.2 Neut # (Auto) 5.9 Lymph # (Auto) 1.0 Lucas # (Auto) 1.0 H Eos # (Auto) 0.2 Baso # (Auto) 0.0 Neutrophils % (Manual) Lymphocytes % (Manual) Reactive Lymphs % Monocytes % (Manual) Platelet Estimate Polychromasia Hypochromasia (manual) Poikilocytosis (manual Anisocytosis (manual) Microcytosis (manual) Macrocytosis (manual) Tear Drop Cells Sodium 137 Potassium 3.7 Chloride 108 H Carbon Dioxide 21 L Anion Gap 12 BUN 71 H Creatinine 1.8 H Est GFR ( Amer) 47 Est GFR (Non-Af Amer) 39 Random Glucose 91 Calcium 8.5 L Total Bilirubin 0.9 AST 39 ALT 38 Alkaline Phosphatase 83 NT-Pro-B Natriuret Pep Total Protein 6.3 Albumin 2.9 L Globulin 3.4 Albumin/Globulin Ratio 0.9 L Triglycerides 122 Cholesterol 119 LDL Cholesterol Direct 81 HDL Cholesterol 21 L Vitamin B12 511 Folate > 20.0 Free T4 1.77 TSH 3rd Generation 3.00 Urine Opiates Screen Urine Methadone Screen Ur Barbiturates Screen Ur Phencyclidine Scrn Ur Amphetamines Screen U Benzodiazepines Scrn U Oth Cocaine Metabols U Cannabinoids Screen Alcohol, Quantitative Influenza Typ A,B (EIA) Ur L.pneumophila Ag S. pneumoniae Antigen Assessment & Plan - Assessment and Plan (Free Text) Plan: 58yo male with history of diastolic CHF, uncontrolled hypertension, homeless, CVA presents with hypertensive urgency, CAP, acute kidney injury. Nephrology consulted for evaluation of JASWANT. 1. JASWANT 2. Pleural effusion 3. CAP 4. Uncontrolled hypertension 5. Numerous infected callouses 6. Hx of CVA -Urinalysis and urine lytes pending -Renal artery duplex ordered -Hydralazine increased to 50q8 given uncontrolled BP -Lasix discontinued as the patient does not appear to be in acute CHF exacerbation -Head and Chest CT were reviewed -Cardiology input noted Patient seen and case discussed/reviewed with attending, Dr. Lizarraga <Eliseo Lizarraga - Last Filed: 04/05/18 18:24> Meds - Medications Medications: Current Medications Albuterol/Ipratropium (Duoneb 3 Mg/0.5 Mg (3 Ml) Ud) 3 ml INH RQ6 [facility] Stop: 04/05/18 22:00 Last Admin: 04/05/18 13:28 Dose: Not Given Albuterol/Ipratropium (Duoneb 3 Mg/0.5 Mg (3 Ml) Ud) 3 ml INH RQ6 PRN PRN Reason: Wheezing Aspirin (Ecotrin) 81 mg PO DAILY [facility] Last Admin: 04/05/18 10:05 Dose: 81 mg Folic Acid (Folic Acid) 1 mg PO DAILY [facility] Last Admin: 04/05/18 10:05 Dose: 1 mg Heparin Sodium (Porcine) (Heparin) 5,000 units SC Q12 [facility] Last Admin: 04/05/18 09:55 Dose: 5,000 units Hydralazine HCl (Apresoline) 50 mg PO Q8H [facility] Last Admin: 04/05/18 14:05 Dose: 50 mg Ceftriaxone Sodium 1 gm/ (Sodium Chloride) 100 mls @ 100 mls/hr IVPB DAILY [facility]; Protocol Last Admin: 04/05/18 09:54 Dose: 100 mls/hr Doxycycline Hyclate 100 mg/ (Sodium Chloride) 100 mls @ 100 mls/hr IVPB Q12H [facility]; Protocol Last Admin: 04/05/18 04:40 Dose: 100 mls/hr Ipratropium [place] (Atrovent) 0.5 mg IH RQ6 PRN PRN Reason: Shortness of Breath Isosorbide Mononitrate (Ismo) 20 mg PO DAILY [facility] Last Admin: 04/05/18 10:05 Dose: 20 mg Lactobacillus Acidophilus (Bacid Acidophilus) 1 cap PO BID [facility] Last Admin: 04/05/18 10:05 Dose: 1 cap Lorazepam (Ativan) 1 mg IVP Q6H PRN PRN Reason: Symptoms of alcohol withdrawl Last Admin: 04/04/18 18:24 Dose: 1 mg Lorazepam (Ativan) 2 mg PO Q8H [facility]; Taper Stop: 04/09/18 19:59 Last Admin: 04/05/18 12:52 Dose: 2 mg Multivitamins (Hexavitamin) 1 tab PO DAILY [facility] Last Admin: 04/05/18 10:05 Dose: 1 tab Pantoprazole Sodium (Protonix Inj) 40 mg IVP DAILY [facility] Last Admin: 04/05/18 09:55 Dose: 40 mg Rosuvastatin Calcium (Crestor) 5 mg PO HS [facility] Last Admin: 04/04/18 21:25 Dose: 5 mg Thiamine HCl (Vitamin B1 Tab) 100 mg PO DAILY [facility] Last Admin: 04/05/18 10:05 Dose: 100 mg Results - Vital Signs Recent Vital Signs: Last Vital Signs Temp 97.2 F L 04/05/18 16:09 Pulse 80 04/05/18 16:09 Resp 20 04/05/18 16:09 BP 153/96 H 04/05/18 16:09 Pulse Ox 98 04/05/18 16:09 - Labs Result Diagrams: 04/05/18 06:57 04/05/18 06:57 Labs: Laboratory Results - last 24 hr 04/04/18 04/04/18 04/05/18 20:29 22:42 03:30 WBC RBC Hgb Hct MCV MCH MCHC RDW Plt Count MPV Neut % (Auto) Lymph % (Auto) Lucas % (Auto) Eos % (Auto) Baso % (Auto) Neut # (Auto) Lymph # (Auto) Lucas # (Auto) Eos # (Auto) Baso # (Auto) Sodium Potassium Chloride Carbon Dioxide Anion Gap BUN Creatinine Est GFR ( Amer) Est GFR (Non-Af Amer) Random Glucose Hemoglobin A1c Calcium Total Bilirubin AST ALT Alkaline Phosphatase Total Protein Albumin Globulin Albumin/Globulin Ratio Triglycerides Cholesterol LDL Cholesterol Direct HDL Cholesterol Vitamin B12 Folate Free T4 TSH 3rd Generation Urine Color Urine Clarity Urine pH Ur Specific [place] Urine Protein Urine Glucose (UA) Urine Ketones Urine Blood Urine Nitrate Urine Bilirubin Urine Urobilinogen Ur Leukocyte Esterase Urine WBC (Auto) Urine RBC (Auto) Ur Squamous Epith Cells Ur Random Creatinine Ur Random Sodium Ur Random Urea Nitrogn Influenza Typ A,B (EIA) Negative for flu a/b Ur L.pneumophila Ag Negative S. pneumoniae Antigen Negative 04/05/18 04/05/18 04/05/18 06:57 06:57 06:57 WBC 8.0 RBC 3.76 L Hgb 11.1 L Hct 34.1 L MCV 90.6 D MCH 29.5 MCHC 32.6 L RDW 17.0 H Plt Count 196 MPV 9.8 Neut % (Auto) 73.4 Lymph % (Auto) 12.5 L Lucas % (Auto) 12.0 H Eos % (Auto) 1.9 Baso % (Auto) 0.2 Neut # (Auto) 5.9 Lymph # (Auto) 1.0 Lucas # (Auto) 1.0 H Eos # (Auto) 0.2 Baso # (Auto) 0.0 Sodium 137 Potassium 3.7 Chloride 108 H Carbon Dioxide 21 L Anion Gap 12 BUN 71 H Creatinine 1.8 H Est GFR ( Amer) 47 Est GFR (Non-Af Amer) 39 Random Glucose 91 Hemoglobin A1c 4.8 Calcium 8.5 L Total Bilirubin 0.9 AST 39 ALT 38 Alkaline Phosphatase 83 Total Protein 6.3 Albumin 2.9 L Globulin 3.4 Albumin/Globulin Ratio 0.9 L Triglycerides 122 Cholesterol 119 LDL Cholesterol Direct 81 HDL Cholesterol 21 L Vitamin B12 511 Folate > 20.0 Free T4 TSH 3rd Generation 3.00 Urine Color Urine Clarity Urine pH Ur Specific [place] Urine Protein Urine Glucose (UA) Urine Ketones Urine Blood Urine Nitrate Urine Bilirubin Urine Urobilinogen Ur Leukocyte Esterase Urine WBC (Auto) Urine RBC (Auto) Ur Squamous Epith Cells Ur Random Creatinine Ur Random Sodium Ur Random Urea Nitrogn Influenza Typ A,B (EIA) Ur L.pneumophila Ag S. pneumoniae Antigen 04/05/18 04/05/18 04/05/18 06:57 14:47 14:47 WBC RBC Hgb Hct MCV MCH MCHC RDW Plt Count MPV Neut % (Auto) Lymph % (Auto) Lucas % (Auto) Eos % (Auto) Baso % (Auto) Neut # (Auto) Lymph # (Auto) Lucas # (Auto) Eos # (Auto) Baso # (Auto) Sodium Potassium Chloride Carbon Dioxide Anion Gap BUN Creatinine Est GFR ( Amer) Est GFR (Non-Af Amer) Random Glucose Hemoglobin A1c Calcium Total Bilirubin AST ALT Alkaline Phosphatase Total Protein Albumin Globulin Albumin/Globulin Ratio Triglycerides Cholesterol LDL Cholesterol Direct HDL Cholesterol Vitamin B12 Folate Free T4 1.77 TSH 3rd Generation Urine Color Straw Urine Clarity Clear Urine pH 6.0 Ur Specific [place] 1.008 Urine Protein Negative Urine Glucose (UA) Normal Urine Ketones Negative Urine Blood Negative Urine Nitrate Negative Urine Bilirubin Negative Urine Urobilinogen Normal Ur Leukocyte Esterase Neg Urine WBC (Auto) 2 Urine RBC (Auto) < 1 Ur Squamous Epith Cells 1 Ur Random Creatinine 15.2 Ur Random Sodium 128 Ur Random Urea Nitrogn 352 Influenza Typ A,B (EIA) Ur L.pneumophila Ag S. pneumoniae Antigen Attending/Attestation - Attestation I have personally seen and examined this patient.: Yes I have fully participated in the care of the patient.: Yes I have reviewed all pertinent clinical information: Yes Notes (Text): Patient seen and examined; I agree with the resident's note as above with the following additions/edits: 58 yo M w/ pmh of uncontrolled htn, s/p CVA, diastolic CHF, and ETOH abuse, presented to ED with complaint of foot pain, admitted with AMS, hypertensive urgency and acute kidney injury for which nephrology is being consulted; Patient is unable to give any history at time of encounter due to being somnolent, arousable but non-verbal (possibly due to being started on ativan taper for ETOH withdrawal); presented with complaint of foot pain (which is chronic per review of records); patient is tachypneic at times and CT showed R sided moderate pleural effusion, possible infiltrate as well as possible venous congestion; patient was started on IV lasix in ED and continued at lower dose (20 mg q12h) yesterday; Review of records shows baseline serum creatinine 0.8, already at 1.4 on presentation and continuing to increase slowly; exam reveals no JVD, no overt rales and no signficant lower ext edema; may have tenuous volume status given his diastolic dysfunction but at this time doesn't appear to need further diuresis; UA shows no albuminuria that would be more indicative of intrinsic kidney disease; imaging does show some degree of atherosclerotic vasculature which could contribute to patient's renal function being vulnerable to hemodynamic changes; -Agree with holding further diuresis; -Obtaining renal artery duplex to r/o renal artery stenosis (especially given uncontrolled HTN); -Agree with imdur and hydralazine for BP control (increasing hydralazine to 50 mg q8h); -Avoid nephrotoxic agents (NSAIDS, phosphate enema); -Check bladder scan periodically (though overt hydronephrosis on US); Thank you for this referral, we will continue to follow closely. 04/05/18 18:20
[2018-04-05] MEDS: Multiple Vitamins Tab PO SCH (10:05)
[2018-04-05] MEDS: Lactobacillus Acidophilus 500 MU Cap PO SCH ×2 (10:05→18:19)
--- NOTE | 2018-04-05 11:05 | CP.PCM.CON ---
History of Present Illness - History of Present Illness History of Present Illness: Unable to obtain Hx from patient due to uncooperative. Hx obtained from EMR and speaking with attending MD. Homeless man with chronic LE wounds and possible developing cellulitis to the L foot after a mechanical trauma. We are consulted to help manage hx of diastolic CHF. PMHX: documeneted in chart: prior CVA, HTN Review of Systems - Review of Systems Systems not reviewed;Unavailable: Uncooperative Review of Systems: unkempt Unable to obtain full ROS due to patient status Past Patient History - Infectious Disease Hx of Infectious Diseases: None - Tetanus Immunizations Tetanus Immunization: Unknown - Past Medical History & Family History Past Medical History?: Yes - Past Social History Smoking Status: Current Some Days Smoker - CARDIAC Hx Congestive Heart Failure: No Hx Hypercholesterolemia: No Hx Hypertension: Yes - PULMONARY Hx Chronic Obstructive Pulmonary Disease (COPD): No - NEUROLOGICAL Hx Seizures: No - HEENT Hx HEENT Problems: No - RENAL Hx Chronic Kidney Disease: No - ENDOCRINE/METABOLIC Hx Hypothyroidism: No - HEMATOLOGICAL/ONCOLOGICAL Hx Human Immunodeficiency Virus (HIV): No - INTEGUMENTARY Hx Dermatological Problems: No - MUSCULOSKELETAL/RHEUMATOLOGICAL Hx Arthritis: No Hx Rheumatoid Arthritis: No - GASTROINTESTINAL Hx Gastrointestinal Disorders: No - GENITOURINARY/GYNECOLOGICAL Hx Sexually Transmitted Disorders: No - PSYCHIATRIC Hx Substance Use: No - SURGICAL HISTORY Hx Surgeries: No - ANESTHESIA Hx Anesthesia: No Hx Anesthesia Reactions: No Meds Allergies/Adverse Reactions: Allergies Allergy/AdvReac Type Severity Reaction Status Date / Time No Known Allergies Allergy Verified 04/03/18 17:27 - Medications Medications: Current Medications Albuterol/Ipratropium (Duoneb 3 Mg/0.5 Mg (3 Ml) Ud) 3 ml INH RQ6 [facility] Stop: 04/05/18 22:00 Last Admin: 04/05/18 07:52 Dose: 3 ml Aspirin (Ecotrin) 81 mg PO DAILY [facility] Last Admin: 04/05/18 10:05 Dose: 81 mg Folic Acid (Folic Acid) 1 mg PO DAILY [facility] [place] Last Admin: 04/05/18 10:05 Dose: 1 mg Furosemide (Lasix) 20 mg IVP Q12H [facility] Last Admin: 04/05/18 07:59 Dose: 20 mg Heparin Sodium (Porcine) (Heparin) 5,000 units SC Q12 [facility] Last Admin: 04/05/18 09:55 Dose: 5,000 units Hydralazine HCl (Apresoline) 25 mg PO TID [facility] [place] Last Admin: 04/05/18 10:05 Dose: 25 mg Ceftriaxone Sodium 1 gm/ (Sodium Chloride) 100 mls @ 100 mls/hr IVPB DAILY [facility]; Protocol Last Admin: 04/05/18 09:54 Dose: 100 mls/hr Doxycycline Hyclate 100 mg/ (Sodium Chloride) 100 mls @ 100 mls/hr IVPB Q12H [facility]; Protocol Last Admin: 04/05/18 04:40 Dose: 100 mls/hr Ipratropium [place] (Atrovent) 0.5 mg IH RQ6 PRN PRN Reason: Shortness of Breath Isosorbide Mononitrate (Ismo) 20 mg PO DAILY [facility] [place] Last Admin: 04/05/18 10:05 Dose: 20 mg Lactobacillus Acidophilus (Bacid Acidophilus) 1 cap PO BID [facility] Last Admin: 04/05/18 10:05 Dose: 1 cap Lorazepam (Ativan) 1 mg IVP Q6H PRN PRN Reason: Symptoms of alcohol withdrawl Last Admin: 04/04/18 18:24 Dose: 1 mg Lorazepam (Ativan) 2 mg PO Q8H [facility] [place]; Taper Stop: 04/09/18 19:59 Last Admin: 04/05/18 04:12 Dose: 2 mg Multivitamins (Hexavitamin) 1 tab PO DAILY [facility] [place] Last Admin: 04/05/18 10:05 Dose: 1 tab Pantoprazole Sodium (Protonix Inj) 40 mg IVP DAILY [facility] [place] Last Admin: 04/05/18 09:55 Dose: 40 mg Rosuvastatin Calcium (Crestor) 5 mg PO HS [facility] [place] Last Admin: 04/04/18 21:25 Dose: 5 mg Thiamine HCl (Vitamin B1 Tab) 100 mg PO DAILY [facility] [place] Last Admin: 04/05/18 10:05 Dose: 100 mg Physical Exam - Constitutional Appears: No Acute Distress, Unkempt, Confused, Chronically Ill - Head Exam Head Exam: ATRAUMATIC, NORMAL INSPECTION, NORMOCEPHALIC - Eye Exam Eye Exam: Normal appearance. absent: Scleral icterus - ENT Exam ENT Exam: Mucous Membranes Moist - Neck Exam Neck exam: Negative for: Thyromegaly - Respiratory Exam Respiratory Exam: Clear to Auscultation Bilateral. absent: Rhonchi, Wheezes, Respiratory Distress - Cardiovascular Exam Cardiovascular Exam: REGULAR RHYTHM, +S1, +S2. absent: Systolic Murmur - GI/Abdominal Exam GI & Abdominal Exam: Soft. absent: Tenderness - Neurological Exam Neurological exam: Altered - Skin Skin Exam: Abrasion, Rash, Warm Results - Vital Signs Recent Vital Signs: Last Vital Signs Temp 97.7 F 04/04/18 23:22 Pulse 76 04/05/18 09:57 Resp 20 04/05/18 07:58 BP 179/110 H 04/05/18 09:57 Pulse Ox 100 04/05/18 07:58 - Labs Result Diagrams: 04/05/18 06:57 04/05/18 06:57 Labs: Laboratory Results - last 24 hr 04/04/18 04/04/18 04/04/18 16:50 20:29 22:42 WBC RBC Hgb Hct MCV MCH MCHC RDW Plt Count MPV Neut % (Auto) Lymph % (Auto) [place] % (Auto) Eos % (Auto) Baso % (Auto) Neut # (Auto) Lymph # (Auto) [place] # (Auto) Eos # (Auto) Baso # (Auto) Sodium Potassium Chloride Carbon Dioxide Anion Gap BUN Creatinine Est GFR ( Amer) Est GFR (Non-Af Amer) Random Glucose Hemoglobin A1c Calcium Total Bilirubin AST ALT Alkaline Phosphatase NT-Pro-B Natriuret Pep 30607 H Total Protein Albumin Globulin Albumin/Globulin Ratio Triglycerides Cholesterol LDL Cholesterol Direct HDL Cholesterol Vitamin B12 Folate Free T4 TSH 3rd Generation Alcohol, Quantitative < 10 Influenza Typ A,B (EIA) Negative for flu a/b Ur L.pneumophila Ag Negative S. pneumoniae Antigen 04/05/18 04/05/18 04/05/18 03:30 06:57 06:57 WBC 8.0 RBC 3.76 L Hgb 11.1 L Hct 34.1 L MCV 90.6 D MCH 29.5 MCHC 32.6 L RDW 17.0 H Plt Count 196 MPV 9.8 Neut % (Auto) 73.4 Lymph % (Auto) 12.5 L [place] % (Auto) 12.0 H Eos % (Auto) 1.9 Baso % (Auto) 0.2 Neut # (Auto) 5.9 Lymph # (Auto) 1.0 [place] # (Auto) 1.0 H Eos # (Auto) 0.2 Baso # (Auto) 0.0 Sodium 137 Potassium 3.7 Chloride 108 H Carbon Dioxide 21 L Anion Gap 12 BUN 71 H Creatinine 1.8 H Est GFR ( Amer) 47 Est GFR (Non-Af Amer) 39 Random Glucose 91 Hemoglobin A1c Calcium 8.5 L Total Bilirubin 0.9 AST 39 ALT 38 Alkaline Phosphatase 83 NT-Pro-B Natriuret Pep Total Protein 6.3 Albumin 2.9 L Globulin 3.4 Albumin/Globulin Ratio 0.9 L Triglycerides 122 Cholesterol 119 LDL Cholesterol Direct 81 HDL Cholesterol 21 L Vitamin B12 511 Folate > 20.0 Free T4 TSH 3rd Generation 3.00 Alcohol, Quantitative Influenza Typ A,B (EIA) Ur L.pneumophila Ag S. pneumoniae Antigen Negative 04/05/18 04/05/18 06:57 06:57 WBC RBC Hgb Hct MCV MCH MCHC RDW Plt Count MPV Neut % (Auto) Lymph % (Auto) [place] % (Auto) Eos % (Auto) Baso % (Auto) Neut # (Auto) Lymph # (Auto) [place] # (Auto) Eos # (Auto) Baso # (Auto) Sodium Potassium Chloride Carbon Dioxide Anion Gap BUN Creatinine Est GFR ( Amer) Est GFR (Non-Af Amer) Random Glucose Hemoglobin A1c 4.8 Calcium Total Bilirubin AST ALT Alkaline Phosphatase NT-Pro-B Natriuret Pep Total Protein Albumin Globulin Albumin/Globulin Ratio Triglycerides Cholesterol LDL Cholesterol Direct HDL Cholesterol Vitamin B12 Folate Free T4 1.77 TSH 3rd Generation Alcohol, Quantitative Influenza Typ A,B (EIA) Ur L.pneumophila Ag S. pneumoniae Antigen Assessment & Plan - Assessment and Plan (Free Text) Assessment: 58 y/o homeless male with prior CVA and HTN Echo: images directly seen by me from 08/2017: Normal LVEF, Mild LVH, grade 1 DD, normal PASP, no significant valvular abnormalities. No need to repeat echo as clinically does not appear to be in ADHF. CXR: patchy atelectasis CT head: microvascular changes, old L. occipital infarct Renal U/S: L. nephrolithiasis, incidental gall stones; no hydronephrosis L. foot xray: degenerative changes Patient has chronci diastolic dysfunction without overt volume overload. Wall motion and ejection fraction were normal Underlying Stage 2 CKD may be combination of diuretics and dehydration with intrinsic hypertensive medical renal disease. Plan: BP control with hydralazine, add norvasc 10 and consider ARB or ROBERT-I : compliance will always be a challenge with this patient. Monitor for sepsis, bacteremia and continue wound care and supportive ABX for L. foor wound/infection Cont ASA/statin for probable underlying ASCVD. No additional testing or Rx planned at this time. - Date & Time Date: 04/05/18 Time: 15:31
--- NOTE | 2018-04-05 11:47 | US ---
Date of service: 04/04/2018 PROCEDURE: Ultrasound of the Kidneys HISTORY: Elevated Bun/Cr COMPARISON: None available. TECHNIQUE: Sonogram of the kidneys. FINDINGS: RIGHT KIDNEY: Measures: 9.9 x 3.8 x 4.9 cm. Normal in size, contour and echogenicity. No stone, solid mass lesion or hydronephrosis visualized. LEFT KIDNEY: Measures: 11.1 x 4.8 x 4.6 cm. Nonobstructive sub centimeter upper pole calculi the largest measures 4 mm. Normal in size, contour and echogenicity. No solid mass lesion or hydronephrosis visualized. OTHER FINDINGS: Incidental cholelithiasis. Very small bilateral pleural effusions. IMPRESSION: Nonobstructive left nephrolithiasis. Otherwise unremarkable renal ultrasound. Incidental cholelithiasis. Very small bilateral pleural effusions.
[2018-04-05 15:00] LABS: CREATININE, RANDOM URINE 15.2 mg/dL; SQUAMOUS EPITHIAL 1 /hpf (0-5); URINE BILIRUBIN NEGATIVE (NEGATIVE); URINE BLOOD NEGATIVE (NEGATIVE); URINE CLARITY Clear (Clear); URINE COLOR Straw (YELLOW); URINE GLUCOSE (UA) NORMAL (Normal); URINE LEUKOCYTE ESTERASE NEG Leu/uL (Negative); URINE PROTEIN NEGATIVE (NEGATIVE); URINE UROBILINOGEN NORMAL mg/dL (0.2-1.0)
--- NOTE | 2018-04-05 17:09 | CP.PCM.CON ---
History of Present Illness - History of Present Illness History of Present Illness: Patient is a 58-year-old male with PMHx of HTN, diastolic CHF, and CVA who presented to ED for foot pain. As per his H&P, patient is a poor historian and unable to answer any questions. Pulmonology was consulted due to CXR showing limited patchy atelectasis in medial right base, and chest CT showing right- sided effusion and mild basilar atelectasis. During the examination, patient lying in bed comfortably, and in no acute distress, but upon asking questions, he refuses to answer and instead only takes deep breaths. Unable to obtain any history or ROS due to his condition. Chest CT 04/04 - Small to medium size right-sided effusion and mild right basilar atelectasis. Small opacities are also present within the middle lobe possibly representing rounded atelectasis and/or infiltrates. There also appears to be some mild dependent atelectasis in the left lung base. Trace right-sided effusion. Minimal linear scarring changes left lingular region. Suspect mild underlying pulmonary venous congestive changes. There also appears to be a few scattered parenchymal calcifications likely representing granulomata within both lower lung liu as well. Cardiology. CXR 04/04 - Limited patchy atelectasis medial right base with remaining lung liu clear. Stable prominent cardiac silhouette. PMHx: HTN, diastolic CHF, CVA PSHx: denies Allergies: denies Social Hx: 1 PPD x40 years, denies alcohol or drug use as per chart review Family Hx: unknown Review of Systems - Review of Systems All systems: reviewed and no additional remarkable complaints except (shortness of breath) Past Patient History - Infectious Disease Hx of Infectious Diseases: None - Tetanus Immunizations Tetanus Immunization: Unknown - Past Medical History & Family History Past Medical History?: Yes - Past Social History Smoking Status: Current Some Days Smoker - CARDIAC Hx Congestive Heart Failure: No Hx Hypercholesterolemia: No Hx Hypertension: Yes - PULMONARY Hx Chronic Obstructive Pulmonary Disease (COPD): No - NEUROLOGICAL Hx Seizures: No - HEENT Hx HEENT Problems: No - RENAL Hx Chronic Kidney Disease: No - ENDOCRINE/METABOLIC Hx Hypothyroidism: No - HEMATOLOGICAL/ONCOLOGICAL Hx Human Immunodeficiency Virus (HIV): No - INTEGUMENTARY Hx Dermatological Problems: No - MUSCULOSKELETAL/RHEUMATOLOGICAL Hx Arthritis: No Hx Rheumatoid Arthritis: No - GASTROINTESTINAL Hx Gastrointestinal Disorders: No - GENITOURINARY/GYNECOLOGICAL Hx Sexually Transmitted Disorders: No - PSYCHIATRIC Hx Substance Use: No - SURGICAL HISTORY Hx Surgeries: No - ANESTHESIA Hx Anesthesia: No Hx Anesthesia Reactions: No Meds Allergies/Adverse Reactions: Allergies Allergy/AdvReac Type Severity Reaction Status Date / Time No Known Allergies Allergy Verified 04/03/18 17:27 - Medications Medications: Current Medications Albuterol/Ipratropium (Duoneb 3 Mg/0.5 Mg (3 Ml) Ud) 3 ml INH RQ6 [facility] Stop: 04/05/18 22:00 Last Admin: 04/05/18 13:28 Dose: Not Given Albuterol/Ipratropium (Duoneb 3 Mg/0.5 Mg (3 Ml) Ud) 3 ml INH RQ6 PRN PRN Reason: Wheezing Aspirin (Ecotrin) 81 mg PO DAILY [facility] Last Admin: 04/05/18 10:05 Dose: 81 mg Folic Acid (Folic Acid) 1 mg PO DAILY [facility] Last Admin: 04/05/18 10:05 Dose: 1 mg Heparin Sodium (Porcine) (Heparin) 5,000 units SC Q12 [facility] Last Admin: 04/05/18 09:55 Dose: 5,000 units Hydralazine HCl (Apresoline) 50 mg PO Q8H [facility] Last Admin: 04/05/18 14:05 Dose: 50 mg Ceftriaxone Sodium 1 gm/ (Sodium Chloride) 100 mls @ 100 mls/hr IVPB DAILY [facility]; Protocol Last Admin: 04/05/18 09:54 Dose: 100 mls/hr Doxycycline Hyclate 100 mg/ (Sodium Chloride) 100 mls @ 100 mls/hr IVPB Q12H [facility]; Protocol Last Admin: 04/05/18 04:40 Dose: 100 mls/hr Ipratropium [place] (Atrovent) 0.5 mg IH RQ6 PRN PRN Reason: Shortness of Breath Isosorbide Mononitrate (Ismo) 20 mg PO DAILY [facility] Last Admin: 04/05/18 10:05 Dose: 20 mg Lactobacillus Acidophilus (Bacid Acidophilus) 1 cap PO BID [facility] Last Admin: 04/05/18 10:05 Dose: 1 cap Lorazepam (Ativan) 1 mg IVP Q6H PRN PRN Reason: Symptoms of alcohol withdrawl Last Admin: 04/04/18 18:24 Dose: 1 mg Lorazepam (Ativan) 2 mg PO Q8H [facility]; Taper Stop: 04/09/18 19:59 Last Admin: 04/05/18 12:52 Dose: 2 mg Multivitamins (Hexavitamin) 1 tab PO DAILY [facility] Last Admin: 04/05/18 10:05 Dose: 1 tab Pantoprazole Sodium (Protonix Inj) 40 mg IVP DAILY [facility] Last Admin: 04/05/18 09:55 Dose: 40 mg Rosuvastatin Calcium (Crestor) 5 mg PO HS [facility] Last Admin: 04/04/18 21:25 Dose: 5 mg Thiamine HCl (Vitamin B1 Tab) 100 mg PO DAILY [facility] Last Admin: 04/05/18 10:05 Dose: 100 mg Physical Exam - Head Exam Head Exam: ATRAUMATIC, NORMOCEPHALIC - ENT Exam ENT Exam: Mucous Membranes Moist - Neck Exam Neck exam: Positive for: Normal Inspection - Respiratory Exam Respiratory Exam: Decreased Breath Sounds - Cardiovascular Exam Cardiovascular Exam: REGULAR RHYTHM - GI/Abdominal Exam GI & Abdominal Exam: Normal Bowel Sounds, Soft Results - Vital Signs Recent Vital Signs: Last Vital Signs Temp 97.2 F L 04/05/18 16:09 Pulse 80 04/05/18 16:09 Resp 20 04/05/18 16:09 BP 153/96 H 04/05/18 16:09 Pulse Ox 98 04/05/18 16:09 - Labs Result Diagrams: 04/05/18 06:57 04/05/18 06:57 Labs: Laboratory Results - last 24 hr 04/04/18 04/04/18 04/04/18 16:50 20:29 22:42 WBC RBC Hgb Hct MCV MCH MCHC RDW Plt Count MPV Neut % (Auto) Lymph % (Auto) [place] % (Auto) Eos % (Auto) Baso % (Auto) Neut # (Auto) Lymph # (Auto) [place] # (Auto) Eos # (Auto) Baso # (Auto) Sodium Potassium Chloride Carbon Dioxide Anion Gap BUN Creatinine Est GFR ( Amer) Est GFR (Non-Af Amer) Random Glucose Hemoglobin A1c Calcium Total Bilirubin AST ALT Alkaline Phosphatase NT-Pro-B Natriuret Pep 79422 H Total Protein Albumin Globulin Albumin/Globulin Ratio Triglycerides Cholesterol LDL Cholesterol Direct HDL Cholesterol Vitamin B12 Folate Free T4 TSH 3rd Generation Urine Color Urine Clarity Urine pH Ur Specific [place] Urine Protein Urine Glucose (UA) Urine Ketones Urine Blood Urine Nitrate Urine Bilirubin Urine Urobilinogen Ur Leukocyte Esterase Urine WBC (Auto) Urine RBC (Auto) Ur Squamous Epith Cells Ur Random Creatinine Ur Random Sodium Ur Random Urea Nitrogn Alcohol, Quantitative < 10 Influenza Typ A,B (EIA) Negative for flu a/b Ur L.pneumophila Ag Negative S. pneumoniae Antigen 04/05/18 04/05/18 04/05/18 03:30 06:57 06:57 WBC 8.0 RBC 3.76 L Hgb 11.1 L Hct 34.1 L MCV 90.6 D MCH 29.5 MCHC 32.6 L RDW 17.0 H Plt Count 196 MPV 9.8 Neut % (Auto) 73.4 Lymph % (Auto) 12.5 L [place] % (Auto) 12.0 H Eos % (Auto) 1.9 Baso % (Auto) 0.2 Neut # (Auto) 5.9 Lymph # (Auto) 1.0 [place] # (Auto) 1.0 H Eos # (Auto) 0.2 Baso # (Auto) 0.0 Sodium 137 Potassium 3.7 Chloride 108 H Carbon Dioxide 21 L Anion Gap 12 BUN 71 H Creatinine 1.8 H Est GFR ( Amer) 47 Est GFR (Non-Af Amer) 39 Random Glucose 91 Hemoglobin A1c Calcium 8.5 L Total Bilirubin 0.9 AST 39 ALT 38 Alkaline Phosphatase 83 NT-Pro-B Natriuret Pep Total Protein 6.3 Albumin 2.9 L Globulin 3.4 Albumin/Globulin Ratio 0.9 L Triglycerides 122 Cholesterol 119 LDL Cholesterol Direct 81 HDL Cholesterol 21 L Vitamin B12 511 Folate > 20.0 Free T4 TSH 3rd Generation 3.00 Urine Color Urine Clarity Urine pH Ur Specific [place] Urine Protein Urine Glucose (UA) Urine Ketones Urine Blood Urine Nitrate Urine Bilirubin Urine Urobilinogen Ur Leukocyte Esterase Urine WBC (Auto) Urine RBC (Auto) Ur Squamous Epith Cells Ur Random Creatinine Ur Random Sodium Ur Random Urea Nitrogn Alcohol, Quantitative Influenza Typ A,B (EIA) Ur L.pneumophila Ag S. pneumoniae Antigen Negative 04/05/18 04/05/18 04/05/18 06:57 06:57 14:47 WBC RBC Hgb Hct MCV MCH MCHC RDW Plt Count MPV Neut % (Auto) Lymph % (Auto) [place] % (Auto) Eos % (Auto) Baso % (Auto) Neut # (Auto) Lymph # (Auto) [place] # (Auto) Eos # (Auto) Baso # (Auto) Sodium Potassium Chloride Carbon Dioxide Anion Gap BUN Creatinine Est GFR ( Amer) Est GFR (Non-Af Amer) Random Glucose Hemoglobin A1c 4.8 Calcium Total Bilirubin AST ALT Alkaline Phosphatase NT-Pro-B Natriuret Pep Total Protein Albumin Globulin Albumin/Globulin Ratio Triglycerides Cholesterol LDL Cholesterol Direct HDL Cholesterol Vitamin B12 Folate Free T4 1.77 TSH 3rd Generation Urine Color Urine Clarity Urine pH Ur Specific [place] Urine Protein Urine Glucose (UA) Urine Ketones Urine Blood Urine Nitrate Urine Bilirubin Urine Urobilinogen Ur Leukocyte Esterase Urine WBC (Auto) Urine RBC (Auto) Ur Squamous Epith Cells Ur Random Creatinine 15.2 Ur Random Sodium 128 Ur Random Urea Nitrogn 352 Alcohol, Quantitative Influenza Typ A,B (EIA) Ur L.pneumophila Ag S. pneumoniae Antigen 04/05/18 14:47 WBC RBC Hgb Hct MCV MCH MCHC RDW Plt Count MPV Neut % (Auto) Lymph % (Auto) [place] % (Auto) Eos % (Auto) Baso % (Auto) Neut # (Auto) Lymph # (Auto) [place] # (Auto) Eos # (Auto) Baso # (Auto) Sodium Potassium Chloride Carbon Dioxide Anion Gap BUN Creatinine Est GFR ( Amer) Est GFR (Non-Af Amer) Random Glucose Hemoglobin A1c Calcium Total Bilirubin AST ALT Alkaline Phosphatase NT-Pro-B Natriuret Pep Total Protein Albumin Globulin Albumin/Globulin Ratio Triglycerides Cholesterol LDL Cholesterol Direct HDL Cholesterol Vitamin B12 Folate Free T4 TSH 3rd Generation Urine Color Straw Urine Clarity Clear Urine pH 6.0 Ur Specific [place] 1.008 Urine Protein Negative Urine Glucose (UA) Normal Urine Ketones Negative Urine Blood Negative Urine Nitrate Negative Urine Bilirubin Negative Urine Urobilinogen Normal Ur Leukocyte Esterase Neg Urine WBC (Auto) 2 Urine RBC (Auto) < 1 Ur Squamous Epith Cells 1 Ur Random Creatinine Ur Random Sodium Ur Random Urea Nitrogn Alcohol, Quantitative Influenza Typ A,B (EIA) Ur L.pneumophila Ag S. pneumoniae Antigen Assessment & Plan (1) COPD (chronic obstructive pulmonary disease) Status: Acute Comment: continue nebulizer treatment (2) Pneumonia Status: Acute Comment: IV antibiotics. Followup culture and sensitivity (3) Diastolic CHF Status: Suspected
[2018-04-05] MEDS ORDERED: Albuterol-Ipratrop 3 mg / 0.5 (3 ml) UD INH PRN (22:00)
--- NOTE | 2018-04-06 07:45 | CP.PCM.PN ---
<Ryland Pearson - Last Filed: 04/06/18 14:41> Objective - Vital Signs/Intake and Output Vital Signs (last 24 hours): Temp Pulse Resp BP Pulse Ox 97.2 F L 89 20 145/90 98 04/06/18 08:27 04/06/18 13:49 04/06/18 08:27 04/06/18 13:49 04/06/18 08:27 Intake and Output: 04/06/18 04/06/18 06:59 18:59 Intake Total 125 Output Total 1100 Balance -975 - Medications Medications: Current Medications Albuterol/Ipratropium (Duoneb 3 Mg/0.5 Mg (3 Ml) Ud) 3 ml INH RQ6 PRN PRN Reason: Wheezing Amlodipine Besylate (Norvasc) 10 mg PO DAILY [facility] Last Admin: 04/06/18 10:12 Dose: 10 mg Aspirin (Ecotrin) 81 mg PO DAILY [facility] Last Admin: 04/06/18 10:12 Dose: 81 mg Folic Acid (Folic Acid) 1 mg PO DAILY [facility] Last Admin: 04/06/18 10:12 Dose: 1 mg Heparin Sodium (Porcine) (Heparin) 5,000 units SC Q12 [facility] Last Admin: 04/06/18 10:12 Dose: 5,000 units Hydralazine HCl (Apresoline) 50 mg PO Q8H [facility] Last Admin: 04/06/18 13:48 Dose: 50 mg Ceftriaxone Sodium 1 gm/ (Sodium Chloride) 100 mls @ 100 mls/hr IVPB DAILY [facility]; Protocol Last Admin: 04/06/18 10:46 Dose: 100 mls/hr Doxycycline Hyclate 100 mg/ (Sodium Chloride) 100 mls @ 100 mls/hr IVPB Q12H [facility]; Protocol Last Admin: 04/06/18 05:15 Dose: 100 mls/hr Ipratropium [place] (Atrovent) 0.5 mg IH RQ6 PRN PRN Reason: Shortness of Breath Isosorbide Mononitrate (Ismo) 20 mg PO DAILY [facility] Last Admin: 04/06/18 10:12 Dose: 20 mg Lactobacillus Acidophilus (Bacid Acidophilus) 1 cap PO BID [facility] Last Admin: 04/06/18 10:12 Dose: 1 cap Lisinopril (Zestril) 10 mg PO DAILY [facility] Last Admin: 04/06/18 13:48 Dose: 10 mg Lorazepam (Ativan) 1 mg IVP Q6H PRN PRN Reason: Symptoms of alcohol withdrawl Last Admin: 04/04/18 18:24 Dose: 1 mg Lorazepam (Ativan) 1 mg PO Q6H [facility]; Taper Stop: 04/09/18 19:59 Last Admin: 04/06/18 08:06 Dose: Not Given Multivitamins (Hexavitamin) 1 tab PO DAILY [facility] Last Admin: 04/06/18 10:12 Dose: 1 tab Pantoprazole Sodium (Protonix Inj) 40 mg IVP DAILY [facility] Last Admin: 04/06/18 10:12 Dose: 40 mg Rosuvastatin Calcium (Crestor) 5 mg PO HS [facility] Last Admin: 04/05/18 21:02 Dose: 5 mg Thiamine HCl (Vitamin B1 Tab) 100 mg PO DAILY [facility] Last Admin: 04/06/18 10:13 Dose: 100 mg - Labs Labs: 04/06/18 07:35 04/06/18 07:35 PT 16.4 SECONDS (9.7-12.2) H 04/06/18 07:35 INR 1.5 04/06/18 07:35 APTT 28 SECONDS (21-34) 04/06/18 07:35 Attending/Attestation - Attestation I have personally seen and examined this patient.: Yes I have fully participated in the care of the patient.: Yes I have reviewed all pertinent clinical information, including history, physical exam and plan: Yes Notes (Text): 04/06/18 14:41 Medicine Attending Note Patient was seen and examined at 10:05 AM 554 P 04/06/18 Please note that on 04/04/18 patient could not provide any detail concerning: his medical history, how he came to be here, what he last remembers prior to coming to hospital, where he stays (which detention), if he takes any medications, when his last drink of alcohol was. Review of prior records on 04/04/18 indicated that the patient has had visits to this hospital for Alcohol Intoxication and has a history of Alcohol Abuse, Diastolic Heart Failure, HTN Urgency, Bilateral Leg Edema/Cellulitis, CVA, Nicotine Addiction He is currently being treated for likely Alcohol Withdrawl, HFpEF Exacerbation, Possible RML Pneumonia, Possible Scabies. Bilateral expiratory wheezing in the lower lung liu is NO LONGER PRESENT: Tr eated with Solumedrol 125 mg IV x 1 dose 04/05/18 and Duoneb x 4 doses that ended at 10 PM on 04/05/18 Bilateral Venous Dopplers 04/05/18 did NOT show any DVTs. He is on Day 3/5 Ativan Taper: this may account for his continued somnolence. However the tremulousness is not present on today's exam. Nursing instructed to hold Ativan dose if patient is asleep. Last dose of Ativan will be at 7 to 8 PM on 04/09/18 Blood pressure is better: Norvasc added to Imdur and Hydralazine (which was increased to 50 mg Q8H). We will get repeat Chest X Ray PA and Lateral once patient has finished Ativan Taper and he is able to stand. Will need to start PT once done with Ativan Taper and patient is able to part icipate. Upon last admission, he required walker and discharge to detention that accepted individuals with walkers. Please see Assessment and Plans below for further details. Upon ROS: Patient is arousable but not responding to questions due somnolence General: Somnolent but easily arousable and following commands HEENT: NCA, Pupils are round and reactive to light, EOMI, NO cervical/supraclavicular/submandibular lymphadenopathy, NO thyromegaly Cardio: NS1 and NS2, NO M/R/G, NO JVD, NO hepatojugular reflux Respiratory: CTA B/L NO R/R/W. Wheezing in the lower lung liu NO longer present GI: BSx4, Soft, ND, NO HSM, NO guarding, NO rebound tenderness Ext: Pulses are strong and equal, Capillary Refill is 2 seconds, 1+ pitting edema of feet, trace pitting edema of the ankles to just below the tibial tuberosities Neuro: full neuro exam not possible at this time as patient falls asleep during exam Skin: Multiple excoriations and eschars from the back, chest, abdomen, down to the legs, NO ulceration noted on any of the gabriel prominences or between the webbing of his toes 1). Alcohol Withdrawl Although blood alcohol level is normal, considering finding of tremulousness on exam and history, Ativan Taper has been started Thiamine 100 mg PO 1x/day Folic Acid 1 mg PO 1x/day MVI PO 1x/day Ativan 1 mg IV Q6H PRN Agitation/Worsening of withdrawl/Seizures Vitamin B12 normal at 512 Folic Acid normal at > 20 2). HFpEF (Diastolic Heart Failure) Exacerbation Noted edema on lower extremities (although chronic as per prior records, patient could not provide any information if this had worsened) Admitting Chest X Ray and CT Chest indicated pulmonary vascular congestion ProBNP significantly elevated copared to prior values Prior Echo 08/2017 showed LV noramal, borderline LV hypertrophy, septal hypokinesis, and Grade I abnormal relaxation pattern Repeat Echo canceled as Lasix 20 mg IV Q12H for now despite the elevated Cr: needed to help with the pulmonary congestion Was discharged back in August 2017 on Zestril and Coreg: hold the Zestril due to the elevated Cr and hold the Coreg due to acute HFpEF exacerbation Hydralazine 25 mg PO TID Isosorbide Mononitrate 20 mg PO 1x/day Head of Bed at 45 Degrees Daily Weights Follow up further recommendations from Cardiology Dr. Dobbs 3). Hx of Bilateral Leg Edema/Cellulitis Raising both legs causes the erythema (most superior aspect demarcated with black ink bilaterally) of the lower legs to disappear, there is NO warmth, and NO tenderness to palpation therefore I do NOT believe this to be cellulitis F/U Bilateral Venous Dopplers to rule out DVT Lasix 20 mg IV Q12H for now 4). Elevated BUN/Cr F/U Bilateral Renal U/S report May have to discontinue the Lasix being used to treat the HFpEF Exacerbation if the Cr continues to rise F/U further recommendations from Nephrology Dr. Lizarraga 5). Hx HTN Hydralazine 25 mg PO TID Isosorbide Mononitrate 20 mg PO 1x/day 6). Excorations and Eschars throughout the body Possible Scabies? Permethrin 5 % Cream administered in the morning and leave on for 14 hours and then wash: nursing is aware Will likely need to be repeated on 04/10/18 7). Possible RML Pneumonia and presence of Small to Medium Right Pleural Effusion CT Chest: small to medium size right sided effusion and mild right basilar atelectasis, small opacities are also present within the middle lobe possible representing rounded atelectasis and/or infiltrate, mild pulmonary venous congestion, cardiomegaly Recephin 1 gm IV Q24H Doxycycline 100 mg IV Q12H F/U Urine Legionella Ag F/U Urine Strep pneumoniae Ag F/U Mycoplasma IgG, IgM F/U Rapid Influenza F/U Blood Culture After treatment of HFpEF exacerbation/diuresis, will repeat the Chest X Ray with PA and Lateral to see if findings in RML persist or not to see if antibiotics need to be continued 8). Hx CVA This as per prior records CT Head 04/04/18: chronic microvascular changes, encephalomalacia from old left occipital lobe infarct with mild ex vacuo dilatation of the posterio horn and left lateral ventricle, encephalomalacia of the right duenas radiata, bilateral basal ganglia and right thalmic lacunar infarct ASA 81 mg PO 1x/day Crestor 5 mg PO 1x/day F/U TSH F/U T4 F/U Lipid Panel F/U HgBA1C 9). Hx Nicotine Addiction and Possible COPD Exacerbatoin Could there be possible COPD with exacerbation considering the wheezing noted on exam and the flattening of diaphragm on admitting chest x ray? Patient stated that he no longer smoked 10). Prophylaxis DVT Risk Score is 4: Age, CHF, Pneumonia, BMI 30 therefore Heparin 5,000 Units SC Q8H and will add Bilateral SCS once Venous Dopplers of legs are negative NO GI prophylaxis indicated at this time Lactobacillus 1 tab PO 2x/day as he is on antibiotics F/U PT/OT: please note that patient required walker upon discharge in August 2017 Heart Health 2 gm Na Diet Will speak with Sales Project Coordinator/Cement Mixer concerning eventual discharge to Nursing Home when patient is stable Please also note that Duoneb via nebulizer will be given from 10 PM 04/04/18 through 10 PM 04/05/18 for the findings on respiratory exam. Ryland Perason D.O. 04/06/18 14:43 <Jean-Pierre Escalera - Last Filed: 04/06/18 16:32> Subjective - Date & Time of Evaluation Date of Evaluation: 04/06/18 Time of Evaluation: 07:43 - Subjective Subjective: PGY-1 Medicine progress note for Dr. Pearson Patient was seen and examined at bedside. Patient is resting comfortably and in no distress. Unable to obtain ROS, patient was not able to verbalize full sentences. Objective - Vital Signs/Intake and Output Vital Signs (last 24 hours): Temp Pulse Resp BP Pulse Ox 98.3 F 85 20 150/94 H 96 04/06/18 00:00 04/06/18 00:00 04/06/18 00:00 04/06/18 00:00 04/06/18 00:00 Intake and Output: 04/06/18 04/06/18 06:59 18:59 Intake Total 125 Output Total 1100 Balance -975 - Medications Medications: Current Medications Albuterol/Ipratropium (Duoneb 3 Mg/0.5 Mg (3 Ml) Ud) 3 ml INH RQ6 PRN PRN Reason: Wheezing Aspirin (Ecotrin) 81 mg PO DAILY [facility] Last Admin: 04/05/18 10:05 Dose: 81 mg Folic Acid (Folic Acid) 1 mg PO DAILY [facility] Last Admin: 04/05/18 10:05 Dose: 1 mg Heparin Sodium (Porcine) (Heparin) 5,000 units SC Q12 [facility] Last Admin: 04/05/18 21:03 Dose: 5,000 units Hydralazine HCl (Apresoline) 50 mg PO Q8H [facility] Last Admin: 04/06/18 05:16 Dose: 50 mg Ceftriaxone Sodium 1 gm/ (Sodium Chloride) 100 mls @ 100 mls/hr IVPB DAILY [facility]; Protocol Last Admin: 04/05/18 09:54 Dose: 100 mls/hr Doxycycline Hyclate 100 mg/ (Sodium Chloride) 100 mls @ 100 mls/hr IVPB Q12H [facility]; Protocol Last Admin: 04/06/18 05:15 Dose: 100 mls/hr Ipratropium [place] (Atrovent) 0.5 mg IH RQ6 PRN PRN Reason: Shortness of Breath Isosorbide Mononitrate (Ismo) 20 mg PO DAILY [facility] Last Admin: 04/05/18 10:05 Dose: 20 mg Lactobacillus Acidophilus (Bacid Acidophilus) 1 cap PO BID [facility] Last Admin: 04/05/18 18:19 Dose: 1 cap Lorazepam (Ativan) 1 mg IVP Q6H PRN PRN Reason: Symptoms of alcohol withdrawl Last Admin: 04/04/18 18:24 Dose: 1 mg Lorazepam (Ativan) 1 mg PO Q6H [facility]; Taper Stop: 04/09/18 19:59 Last Admin: 11/02/18 02:47 Dose: 1 mg Multivitamins (Hexavitamin) 1 tab PO DAILY [facility] Last Admin: 04/05/18 10:05 Dose: 1 tab Pantoprazole Sodium (Protonix Inj) 40 mg IVP DAILY [facility] Last Admin: 04/05/18 09:55 Dose: 40 mg Rosuvastatin Calcium (Crestor) 5 mg PO HS [facility] Last Admin: 04/05/18 21:02 Dose: 5 mg Thiamine HCl (Vitamin B1 Tab) 100 mg PO DAILY [facility] Last Admin: 04/05/18 10:05 Dose: 100 mg - Labs Labs: 04/05/18 06:57 04/05/18 06:57 - Additional Findings Additional findings: - Head Exam Additional comments: several scabs throughout body - Eye Exam Eye Exam: EOMI - ENT Exam ENT Exam: Mucous Membranes Dry - Respiratory Exam Respiratory Exam: absent: Rales, Rhonchi, Wheezes Additional comments: - Cardiovascular Exam Cardiovascular Exam: +S1, +S2. absent: Systolic Murmur - GI/Abdominal Exam GI & Abdominal Exam: Normal Bowel Sounds, Soft - Extremities Exam Additional comments: B/L pitting edema from feet to lower leg Tender to palpation on the plantar surface of feet and dorsal part of foot. Several callous on plantar/ dorsal side of foot Poor overall foot hygiene, malodorous. No open sores or active bleeding noted. - Neurological Exam Neurological exam: Alert - Skin Additional comments: Patient has multiple scabs healing throughout the body Excoriations noted on both upper extremities Assessment and Plan - Assessment and Plan (Free Text) Assessment: Patient is a 58 year old male with PMHx of hypertension, CHF with preserved EF, and CVA (left DELIVERER OUTSIDE infarct) presents to ED for foot pain and possible alcohol intoxication. Plan: History of chronic alcohol abuse: - Monitor for signs of withdrawl - Serum alcohol level: < 10 - Upon review of prior records, patient is known to present with altered mental status 2/2 alcohol intoxication - UDS: Negative - Ativan 1mg PO Q6H and Ativan 1mg IV Q6 PRN - Vitamin B12: 511m Folate levels: > 20 - thiamine, folic acid, multivitamin - PT/OT evaluation - CT head (04/04): Chronic microvascular ischemic changes. 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 B/l basal ganglia and R thalamic lacunar infarcts. Focal encephalomalacia in the R udenas radiata. Hypertension, uncontrolled - Patient not compliant with previous discharge meds - Increased dose to Hydralazine 50 mg TID - Imdur 20mg PO daily - Started Lisinopril 10mg PO QD - Started Amlodipine 10mg PO QD - Secondary HTN workup: - Renal artery duplex: f/u - Plasma metanephrines: f/u - Aldosterone/Plasma renin activity: f/u Lower extremitie swelling: - No evidence of cellulitis, lower extremities show blanchable erythema - Doxycycline 100 mg IV Q12H started on 04/04 - Ceftriaxone 1mg IV Q24H started on 04/04 - Lower extremities venous doppler: f/u - Blood culture (04/04): No growth to date - Received Clindamycin in the ED - Podiatry, Dr. Gomez consulted - Foot Xray (04/03): Degenerative changes of the forefoot. No acute fractures, subluxations. B/l hammertoe deformities are identified diffusely. Severe hallux valgus deformity noted. Large plantar calcaneal spurs b/l. Pneumonia: - Pulmonology, Dr. Lebron consulted - Will repeat AP/PA/Lateral chest xray once patient is more steady - Doxycycline 100 mg IV Q12H - Ceftriaxone 1mg IV Q24H - Atrovent INH Q6 PRN - M. pneumoniae: f/u - Legionella, s. pneumonia, influenza: Negative - CXR (04/04): Limited patchy atelectasis medial right base with remaining lung liu clear. Stable prominent cardiac silhouette. - CT chest (04/04): Small to medium size right-sided effusion and mild right basilar atelectasis. Small opacities are also present within the middle lobe possibly representing rounded atelectasis and/or infiltrates. There also appears to be some mild dependent atelectasis in the left lung base. Trace right-sided effusion. Minimal linear scarring changes left lingular region. Suspect mild underlying pulmonary venous congestive changes. There also appears to be a few scattered parenchymal calcifications likely representing granulomata within both lower lung liu as well. Cardiomegaly CHF with reserved EF: - Cardiology, Dr. Dobbs consulted - No additional echo indicated on this admission as patient is not showing symptoms of heart failure - ProBNP: 29,300- increased from previous admissions - Previous Echo (08/2017): LV normal size, borderline LV hypertrophy, Systolic function borderline, mild septal hypokinesis, LVEF >50% Scabies - Applied Permethrin 5% TOP on 04/04 - Contact precaution - Will reapply Permethrin 5% TOP on 04/10 - Microbiology did not accept skin cultures since specimen collected incorrectly COPD exacerbation: - Resolved - Pulmonology, Dr. Lebron consulted - Duoneb Q6 PRN - Atrovent INH Q6 PRN - Patient is stable, O2 % saturation: 95-100% on room air JASWANT, resolved: - BUN/ Cr today: 66/1.3 - Nephrology, Dr. Lizarraga consulted - Increased dose to Hydralazine 50 mg TID - Avoid nephrotoxic agents (NSAIDS, phosphate enema) - Renal artery duplex: f/u - Renal ultrasound (04/05): non-obstructive left nephrolithiasis. Otherwise ana lilia l ultrasound Prophylaxis/diet: - DVT: Heparin 5000 units Q12H - GI: Protonix 40mg IVP daily - HHD Case discussed with Dr. Michel Escalera, PGY-1
[2018-04-06 07:56] LABS: INR 1.5; PROTHROMBIN TIME 16.4 SECONDS (9.7-12.2)
[2018-04-06 07:59] LABS: BASO % 0.1 % (0.0-2.0); HEMOGLOBIN 11.9 g/dL (12.0-18.0); LYMPH # 0.7 K/uL (1.0-4.3); LYMPH % 9.4 % (20.0-40.0); MEAN CELL VOLUME 90.8 fL (80.0-94.0); MEAN CORPUSCULAR HEMOGLOBIN 30.1 pg (27.0-31.0); MEAN CORPUSCULAR HGB CONC 33.2 g/dL (33.0-37.0); MEAN PLATELET VOLUME 9.4 fL (7.2-11.7); MONO # 1.1 K/uL (0.0-0.8); MONO % 13.3 % (0.0-10.0); NEUT # 6.1 K/uL (1.8-7.0); NEUT % 77.2 % (50.0-75.0); NRBC % 0.1 % (0.0-2.0); PLATELET COUNT 208 K/uL (130-400); RBC 3.97 Mil/uL (4.40-5.90); RED CELL DISTRIBUTION WIDTH 17.1 % (11.5-14.5); WHITE BLOOD COUNT 7.9 K/uL (4.8-10.8)
[2018-04-06 08:08] LABS: ALB/GLOB RATIO 0.9 (1.0-2.1); ALBUMIN 3.1 g/dL (3.5-5.0); ALT/SGPT 36 U/L (21-72); AST/SGOT 34 U/L (17-59); BLOOD UREA NITROGEN 66 mg/dL (9-20); CALCIUM 8.8 mg/dl (8.6-10.4); GFR NON-AFRICAN AMERICAN 56
[2018-04-06 08:37] LABS: BANDS 1 % (0-2); LYMPHOCYTE 4 % (20-40); MONOCYTE 12 % (0-10); NEUTROPHIL 83 % (50-75); PLATELET ESTIMATE NORMAL (NORMAL); TOTAL CELLS COUNTED 100
[2018-04-06 08:38] LABS: ANISOCYTOSIS SLIGHT
[2018-04-06] MEDS: Lactobacillus Acidophilus 500 MU Cap PO SCH ×2 (10:12→17:45)
[2018-04-06] MEDS: Multiple Vitamins Tab PO SCH (10:12)
--- NOTE | 2018-04-06 11:11 | CP.PCM.PN ---
Subjective - Date & Time of Evaluation Date of Evaluation: 04/06/18 Time of Evaluation: 11:09 - Subjective Subjective: Nephrology Progress Note for Dr. Lizarraga Patient seen and examined at bedside. Patient resting comfortably in bed. ROS unobtainable due to patient's current mental status. Objective - Vital Signs/Intake and Output Vital Signs (last 24 hours): Temp Pulse Resp BP Pulse Ox 97.2 F L 89 20 157/95 H 98 04/06/18 08:27 04/06/18 10:10 04/06/18 08:27 04/06/18 10:10 04/06/18 08:27 Intake and Output: 04/06/18 04/06/18 06:59 18:59 Intake Total 125 Output Total 1100 Balance -975 - Medications Medications: Current Medications Albuterol/Ipratropium (Duoneb 3 Mg/0.5 Mg (3 Ml) Ud) 3 ml INH RQ6 PRN PRN Reason: Wheezing Amlodipine Besylate (Norvasc) 10 mg PO DAILY [facility] Last Admin: 04/06/18 10:12 Dose: 10 mg Aspirin (Ecotrin) 81 mg PO DAILY [facility] Last Admin: 04/06/18 10:12 Dose: 81 mg Folic Acid (Folic Acid) 1 mg PO DAILY [facility] Last Admin: 04/06/18 10:12 Dose: 1 mg Heparin Sodium (Porcine) (Heparin) 5,000 units SC Q12 [facility] Last Admin: 04/06/18 10:12 Dose: 5,000 units Hydralazine HCl (Apresoline) 50 mg PO Q8H [facility] Last Admin: 04/06/18 05:16 Dose: 50 mg Ceftriaxone Sodium 1 gm/ (Sodium Chloride) 100 mls @ 100 mls/hr IVPB DAILY [facility]; Protocol Last Admin: 04/06/18 10:46 Dose: 100 mls/hr Doxycycline Hyclate 100 mg/ (Sodium Chloride) 100 mls @ 100 mls/hr IVPB Q12H [facility]; Protocol Last Admin: 04/06/18 05:15 Dose: 100 mls/hr Ipratropium [place] (Atrovent) 0.5 mg IH RQ6 PRN PRN Reason: Shortness of Breath Isosorbide Mononitrate (Ismo) 20 mg PO DAILY [facility] Last Admin: 04/06/18 10:12 Dose: 20 mg Lactobacillus Acidophilus (Bacid Acidophilus) 1 cap PO BID [facility] Last Admin: 04/06/18 10:12 Dose: 1 cap Lorazepam (Ativan) 1 mg IVP Q6H PRN PRN Reason: Symptoms of alcohol withdrawl Last Admin: 04/04/18 18:24 Dose: 1 mg Lorazepam (Ativan) 1 mg PO Q6H [facility]; Taper Stop: 04/09/18 19:59 Last Admin: 04/06/18 08:06 Dose: Not Given Multivitamins (Hexavitamin) 1 tab PO DAILY [facility] Last Admin: 04/06/18 10:12 Dose: 1 tab Pantoprazole Sodium (Protonix Inj) 40 mg IVP DAILY [facility] Last Admin: 04/06/18 10:12 Dose: 40 mg Rosuvastatin Calcium (Crestor) 5 mg PO HS [facility] Last Admin: 04/05/18 21:02 Dose: 5 mg Thiamine HCl (Vitamin B1 Tab) 100 mg PO DAILY [facility] Last Admin: 04/06/18 10:13 Dose: 100 mg - Labs Labs: 04/06/18 07:35 04/06/18 07:35 PT 16.4 SECONDS (9.7-12.2) H 04/06/18 07:35 INR 1.5 04/06/18 07:35 APTT 28 SECONDS (21-34) 04/06/18 07:35 - Constitutional Appears: No Acute Distress - Head Exam Head Exam: NORMAL INSPECTION - Eye Exam Eye Exam: Normal appearance - ENT Exam ENT Exam: Mucous Membranes Moist - Neck Exam Neck Exam: Normal Inspection - Respiratory Exam Respiratory Exam: Clear to Ausculation Bilateral. absent: Rales, Rhonchi, Wheezes - Cardiovascular Exam Cardiovascular Exam: RRR. absent: Gallop, Rubs, Murmur - GI/Abdominal Exam GI & Abdominal Exam: Soft. absent: Guarding, Tenderness, Rebound - Extremities Exam Extremities Exam: Pedal Edema (2+) - Neurological Exam Neurological Exam: Alert. absent: Oriented x3 - Skin Skin Exam: Normal Color Assessment and Plan - Assessment and Plan (Free Text) Assessment: 58yo male with history of diastolic CHF, uncontrolled hypertension, homeless, CVA presents with hypertensive urgency, CAP, acute kidney injury. Nephrology consulted for evaluation of JASWANT. Plan: 1. JASWANT 2. Pleural effusion 3. CAP 4. Uncontrolled hypertension 5. Numerous infected callouses 6. Hx of CVA - Renal function improved after Lasix was discontinued - BP elevated despite increase in Hydralazine - Lisinopril added; will continue amlodpine and hydralazine as well - Secondary HTN workup - Renal artery duplex ordered - Plasma metanephrines ordered - Aldosterone/Plasma renin activity ordered - Head and Chest CT were reviewed - Cardiology input noted Patient seen and case discussed/reviewed with attending, Dr. Zia Reyes DO PGY2
--- NOTE | 2018-04-06 12:41 | VASCLAB ---
Date of service: 04/05/2018 PROCEDURE: Lower Extremity Venous Duplex Exam. HISTORY: Bilateral LE Edema. R/O DVT PRIORS: None. TECHNIQUE: Bilateral common femoral, femoral, popliteal and posterior tibial, peroneal and great saphenous veins were evaluated. Flow was assessed with color Doppler, compressibility, assessment of phasic flow and augmentation response. Report prepared by WILL Balderrama FINDINGS: RIGHT: 1. Common Femoral Vein: 1.1. Compressibility - Fully compressible: Thrombus - None : Flow - Phasic: Augmentation -Normal: Reflux - None. 2. Femoral Vein: (Proximal and mid views only) 2.1. : Thrombus - None : Flow - Phasic: Augmentation -Normal: Reflux - None. 3. Popliteal Vein: 3.1. Compressibility - Fully compressible: Thrombus - None : Flow - Phasic: Augmentation -Normal: Reflux - None. 4. Posterior Tibial Vein: 5. Peroneal Vein: 6. Great Saphenous Vein: LEFT: 1. Common Femoral Vein: 1.1. Compressibility - Fully compressible: Thrombus - None: Flow - Phasic: Augmentation -Normal: Reflux - None. 2. Femoral Vein: 2.1. Compressibility - Fully compressible: Thrombus - None: Flow - Phasic: Augmentation -Normal: Reflux - None. 3. Popliteal Vein: 3.1. Compressibility - Fully compressible: Thrombus - None : Flow - Phasic: Augmentation -Normal: Reflux - None. 4. Posterior Tibial Vein: 5. Peroneal Vein: 6. Great Saphenous Vein: OTHER FINDINGS: Right: None significant. Left: Incidental finding: Occluded proximal and mid superficial femoral artery, with flow reconstituting distally in the thigh. IMPRESSION: 1. No evidence of deep or superficial venous thrombosis for the examined veins in bilateral lower extremities. 2. Technically limited/difficult exam due to patient's limited positioning. Patient unable to cooperate.
[2018-04-07 06:43] LABS: BASO % 0.1 % (0.0-2.0); EOS # 0.2 K/uL (0.0-0.7); HEMOGLOBIN 11.8 g/dL (12.0-18.0); LYMPH # 0.6 K/uL (1.0-4.3); LYMPH % 7.6 % (20.0-40.0); MEAN CELL VOLUME 91.9 fL (80.0-94.0); MEAN CORPUSCULAR HEMOGLOBIN 30.2 pg (27.0-31.0); MEAN CORPUSCULAR HGB CONC 32.8 g/dL (33.0-37.0); MEAN PLATELET VOLUME 9.4 fL (7.2-11.7); MONO # 0.9 K/uL (0.0-0.8); MONO % 10.4 % (0.0-10.0); NEUT # 6.6 K/uL (1.8-7.0); NEUT % 79.9 % (50.0-75.0); PLATELET COUNT 173 K/uL (130-400); RED CELL DISTRIBUTION WIDTH 17.3 % (11.5-14.5); WHITE BLOOD COUNT 8.3 K/uL (4.8-10.8)
[2018-04-07 07:02] LABS: ALB/GLOB RATIO 0.9 (1.0-2.1); ALT/SGPT 38 U/L (21-72); AST/SGOT 37 U/L (17-59); BLOOD UREA NITROGEN 50 mg/dL (9-20); CALCIUM 8.3 mg/dl (8.6-10.4); GFR NON-AFRICAN AMERICAN > 60
--- NOTE | 2018-04-07 07:53 | CP.PCM.PN ---
<Jean-Pierre Escalera - Last Filed: 04/07/18 07:53> Subjective - Date & Time of Evaluation Date of Evaluation: 04/07/18 Time of Evaluation: 07:53 Objective - Vital Signs/Intake and Output Vital Signs (last 24 hours): Temp Pulse Resp BP Pulse Ox 97.3 F L 74 20 137/91 H 97 04/07/18 00:11 04/07/18 00:11 04/07/18 00:11 04/07/18 00:11 04/07/18 00:11 Intake and Output: 04/07/18 04/07/18 06:59 18:59 Output Total 1050 Balance -1050 - Medications Medications: Current Medications Albuterol/Ipratropium (Duoneb 3 Mg/0.5 Mg (3 Ml) Ud) 3 ml INH RQ6 PRN PRN Reason: Wheezing Amlodipine Besylate (Norvasc) 10 mg PO DAILY [facility] Last Admin: 04/06/18 10:12 Dose: 10 mg Aspirin (Ecotrin) 81 mg PO DAILY [facility] Last Admin: 04/06/18 10:12 Dose: 81 mg Folic Acid (Folic Acid) 1 mg PO DAILY [facility] Last Admin: 04/06/18 10:12 Dose: 1 mg Heparin Sodium (Porcine) (Heparin) 5,000 units SC Q12 [facility] Last Admin: 04/06/18 21:09 Dose: 5,000 units Hydralazine HCl (Apresoline) 50 mg PO Q8H [facility] Last Admin: 04/07/18 05:37 Dose: 50 mg Ceftriaxone Sodium 1 gm/ (Sodium Chloride) 100 mls @ 100 mls/hr IVPB DAILY [facility]; Protocol Last Admin: 04/06/18 10:46 Dose: 100 mls/hr Doxycycline Hyclate 100 mg/ (Sodium Chloride) 100 mls @ 100 mls/hr IVPB Q12H [facility]; Protocol Last Admin: 04/07/18 05:37 Dose: 100 mls/hr Ipratropium [place] (Atrovent) 0.5 mg IH RQ6 PRN PRN Reason: Shortness of Breath Isosorbide Mononitrate (Ismo) 20 mg PO DAILY [facility] Last Admin: 04/06/18 10:12 Dose: 20 mg Lactobacillus Acidophilus (Bacid Acidophilus) 1 cap PO BID [facility] Last Admin: 04/06/18 17:45 Dose: 1 cap Lisinopril (Zestril) 10 mg PO DAILY [facility] Last Admin: 04/06/18 13:48 Dose: 10 mg Lorazepam (Ativan) 1 mg IVP Q6H PRN PRN Reason: Symptoms of alcohol withdrawl Last Admin: 04/04/18 18:24 Dose: 1 mg Lorazepam (Ativan) 1 mg PO Q8H [facility]; Taper Stop: 04/09/18 19:59 Last Admin: 04/07/18 04:03 Dose: Not Given Multivitamins (Hexavitamin) 1 tab PO DAILY [facility] Last Admin: 04/06/18 10:12 Dose: 1 tab Pantoprazole Sodium (Protonix Inj) 40 mg IVP DAILY [facility] Last Admin: 04/06/18 10:12 Dose: 40 mg Rosuvastatin Calcium (Crestor) 5 mg PO HS [facility] Last Admin: 04/06/18 21:09 Dose: 5 mg Thiamine HCl (Vitamin B1 Tab) 100 mg PO DAILY [facility] Last Admin: 04/06/18 10:13 Dose: 100 mg - Labs Labs: 04/07/18 06:18 04/07/18 06:18 PT 16.4 SECONDS (9.7-12.2) H 04/06/18 07:35 INR 1.5 04/06/18 07:35 APTT 28 SECONDS (21-34) 04/06/18 07:35 <Ryland Pearson - Last Filed: 04/07/18 09:58> Subjective - Subjective Subjective: Please see note. Objective - Vital Signs/Intake and Output Vital Signs (last 24 hours): Temp Pulse Resp BP Pulse Ox 97.5 F L 91 H 20 179/112 H 95 04/07/18 07:58 04/07/18 07:58 04/07/18 07:58 04/07/18 07:58 04/07/18 07:58 Intake and Output: 04/07/18 04/07/18 06:59 18:59 Output Total 1050 Balance -1050 - Medications Medications: Current Medications Albuterol/Ipratropium (Duoneb 3 Mg/0.5 Mg (3 Ml) Ud) 3 ml INH RQ6 PRN PRN Reason: Wheezing Amlodipine Besylate (Norvasc) 10 mg PO DAILY [facility] Last Admin: 04/07/18 08:51 Dose: 10 mg Aspirin (Ecotrin) 81 mg PO DAILY [facility] Last Admin: 04/06/18 10:12 Dose: 81 mg Folic Acid (Folic Acid) 1 mg PO DAILY [facility] Last Admin: 04/06/18 10:12 Dose: 1 mg Heparin Sodium (Porcine) (Heparin) 5,000 units SC Q12 [facility] Last Admin: 04/06/18 21:09 Dose: 5,000 units Hydralazine HCl (Apresoline) 50 mg PO Q8H [facility] Last Admin: 04/07/18 05:37 Dose: 50 mg Ceftriaxone Sodium 1 gm/ (Sodium Chloride) 100 mls @ 100 mls/hr IVPB DAILY [facility]; Protocol Last Admin: 04/06/18 10:46 Dose: 100 mls/hr Doxycycline Hyclate 100 mg/ (Sodium Chloride) 100 mls @ 100 mls/hr IVPB Q12H [facility]; Protocol Last Admin: 04/07/18 05:37 Dose: 100 mls/hr Ipratropium [place] (Atrovent) 0.5 mg IH RQ6 PRN PRN Reason: Shortness of Breath Isosorbide Mononitrate (Ismo) 20 mg PO DAILY [facility] Last Admin: 04/06/18 10:12 Dose: 20 mg Lactobacillus Acidophilus (Bacid Acidophilus) 1 cap PO BID [facility] Last Admin: 04/06/18 17:45 Dose: 1 cap Lisinopril (Zestril) 40 mg PO DAILY [facility] Lisinopril (Zestril) 30 mg PO ONCE ONE Stop: 04/07/18 10:01 Lorazepam (Ativan) 1 mg IVP Q6H PRN PRN Reason: Symptoms of alcohol withdrawl Last Admin: 04/04/18 18:24 Dose: 1 mg Lorazepam (Ativan) 1 mg PO Q8H [facility]; Taper Stop: 04/09/18 19:59 Last Admin: 04/07/18 04:03 Dose: Not Given Multivitamins (Hexavitamin) 1 tab PO DAILY [facility] Last Admin: 04/06/18 10:12 Dose: 1 tab Pantoprazole Sodium (Protonix Inj) 40 mg IVP DAILY [facility] Last Admin: 04/06/18 10:12 Dose: 40 mg Rosuvastatin Calcium (Crestor) 5 mg PO HS [facility] Last Admin: 04/06/18 21:09 Dose: 5 mg Thiamine HCl (Vitamin B1 Tab) 100 mg PO DAILY [facility] Last Admin: 04/06/18 10:13 Dose: 100 mg - Labs Labs: 04/07/18 06:18 04/07/18 06:18 PT 16.4 SECONDS (9.7-12.2) H 04/06/18 07:35 INR 1.5 04/06/18 07:35 APTT 28 SECONDS (21-34) 04/06/18 07:35 Attending/Attestation - Attestation I have personally seen and examined this patient.: Yes I have fully participated in the care of the patient.: Yes I have reviewed all pertinent clinical information, including history, physical exam and plan: Yes Notes (Text): 04/07/18 09:29 Medicine Attending Note Patient was seen and examined at 9:15 AM 554 P 04/07/18 Please note that on 04/04/18 patient could not provide any detail concerning: his medical history, how he came to be here, what he last remembers prior to coming to hospital, where he stays (which detention), if he takes any medications, when his last drink of alcohol was. Review of prior records on 04/04/18 indicated that the patient has had visits to this hospital for Alcohol Intoxication and has a history of Alcohol Abuse, Diastolic Heart Failure, HTN Urgency, Bilateral Leg Edema/Cellulitis, CVA, Nicotine Addiction He is currently being treated for likely Alcohol Withdrawl, HFpEF Exacerbation, Possible RML Pneumonia, Uncontrolled Blood Pressure, Possible Scabies. Bilateral expiratory wheezing in the lower lung liu is NO LONGER PRESENT: Treated with Solumedrol 125 mg IV x 1 dose 04/05/18 and Duoneb x 4 doses that ended at 10 PM on 04/05/18 Bilateral Venous Dopplers 04/05/18 did NOT show any DVTs. He is on Day 3 Ativan Taper: He is more awake today and answering questions and following commands. He unfortunately still can not provide any information concerning his medication history or how he came to be here. Tremulousness is NOT present. Nursing instructed to hold Ativan dose if patient is asleep. Last dose of Ativan will be at 7 to 8 PM on 04/09/18 Blood pressure is labile: He is on Norvasc, Imdur, Hydralazine, and Lisinopril has been added. F/U results of Renal Artery Scan 04/06/18 We will get repeat Chest X Ray PA and Lateral once patient has finished Ativan Taper and he is able to stand. Will need to start PT once done with Ativan Taper and patient is able to participate. Upon last admission, he required walker and discharge to detention that accepted individuals with walkers. Please see Assessment and Plans below for further details. Upon ROS: Patient is arousable but not responding to questions due somnolence General: Awake and follows commands. Can NOT tell me day, date, year, or where he is (all of this information was provided to him and he repeated it back to me) HEENT: NCA, Pupils are round and reactive to light, EOMI, NO cervical/supraclavicular/submandibular lymphadenopathy, NO thyromegaly Cardio: NS1 and NS2, NO M/R/G, NO JVD, NO hepatojugular reflux Respiratory: CTA B/L NO R/R/W. Wheezing in the lower lung liu NO longer present GI: BSx4, Soft, ND, NO HSM, NO guarding, NO rebound tenderness Ext: Pulses are strong and equal, Capillary Refill is 2 seconds, 1+ pitting edema of feet, trace pitting edema of the ankles to just below the tibial tuberosities Neuro: CN II through XII are grossly intact Skin: Multiple excoriations and eschars from the back, chest, abdomen, down to the legs, NO ulceration noted on any of the gabriel prominences or between the webbing of his toes 1). Alcohol Withdrawl Although blood alcohol level is normal, considering finding of tremulousness on exam and history, Ativan Taper has been started Thiamine 100 mg PO 1x/day Folic Acid 1 mg PO 1x/day MVI PO 1x/day Ativan 1 mg IV Q6H PRN Agitation/Worsening of withdrawl/Seizures Vitamin B12 normal at 512 Folic Acid normal at > 20 2). HFpEF (Diastolic Heart Failure) Exacerbation Noted edema on lower extremities (although chronic as per prior records, patient could not provide any information if this had worsened) Admitting Chest X Ray and CT Chest indicated pulmonary vascular congestion ProBNP significantly elevated copared to prior values Prior Echo 08/2017 showed LV noramal, borderline LV hypertrophy, septal hypokinesis, and Grade I abnormal relaxation pattern Repeat Echo canceled as Lasix 20 mg IV Q12H for now despite the elevated Cr: needed to help with the pulmonary congestion Was discharged back in August 2017 on Zestril and Coreg: hold the Zestril due to the elevated Cr and hold the Coreg due to acute HFpEF exacerbation Hydralazine 25 mg PO TID Isosorbide Mononitrate 20 mg PO 1x/day Head of Bed at 45 Degrees Daily Weights Follow up further recommendations from Cardiology Dr. Dobbs 3). Hx of Bilateral Leg Edema/Cellulitis Raising both legs causes the erythema (most superior aspect demarcated with black ink bilaterally) of the lower legs to disappear, there is NO warmth, and NO tenderness to palpation therefore I do NOT believe this to be cellulitis Bilateral Venous Dopplers of LE did NOT show any DVTs Lasix 20 mg IV Q12H for now 4). Elevated BUN/Cr Bilateral Renal U/S 04/04/18: NO obstructive nephrolithiasis May have to discontinue the Lasix being used to treat the HFpEF Exacerbation if the Cr continues to rise Nephrology Dr. Lizarraga 5). Hx HTN Hydralazine 25 mg PO TID Isosorbide Mononitrate 20 mg PO 1x/day Lisinopril 40 mg PO 1x/day Bilateral Renal U/S 04/04/18 was unremarkable F/U results of Renal Artery Scan 04/06/18 6). Excorations and Eschars throughout the body Possible Scabies? Permethrin 5 % Cream administered in the morning and leave on for 14 hours and then wash: nursing is aware Will likely need to be repeated on 04/10/18 7). Possible RML Pneumonia and presence of Small to Medium Right Pleural Effusion CT Chest: small to medium size right sided effusion and mild right basilar atelectasis, small opacities are also present within the middle lobe possible representing rounded atelectasis and/or infiltrate, mild pulmonary venous congestion, cardiomegaly Recephin 1 gm IV Q24H Doxycycline 100 mg IV Q12H Urine Legionella Ag negative Urine Strep pneumoniae Ag negative F/U Mycoplasma IgG, IgM Rapid Influenza negative Blood Culture 04/03/18 is negative to date After treatment of HFpEF exacerbation/diuresis, will repeat the Chest X Ray with PA and Lateral to see if findings in RML persist or not to see if antibiotics need to be continued 8). Hx CVA This as per prior records CT Head 04/04/18: chronic microvascular changes, encephalomalacia from old left occipital lobe infarct with mild ex vacuo dilatation of the posterio horn and left lateral ventricle, encephalomalacia of the right duenas radiata, bilateral basal ganglia and right thalmic lacunar infarct ASA 81 mg PO 1x/day Crestor 5 mg PO 1x/day TSH 3.00 T4 1.77 LDL 81 Total Cholesterol 127 Triglycerides 122 HDL low at 21 F/U HgBA1C 9). Hx Nicotine Addiction and Possible COPD Exacerbatoin Could there be possible COPD with exacerbation considering the wheezing noted on exam and the flattening of diaphragm on admitting chest x ray? Patient stated that he no longer smoked 10). Prophylaxis DVT Risk Score is 4: Age, CHF, Pneumonia, BMI 30 therefore Heparin 5,000 Units SC Q8H and Bilateral SCS NO GI prophylaxis indicated at this time Lactobacillus 1 tab PO 2x/day as he is on antibiotics F/U PT/OT: please note that patient required walker upon discharge in August 2017 Heart Health 2 gm Na Diet Will speak with Business Process Associate/Conveyor System Dispatcher concerning eventual discharge to [facility] when patient is stable Please also note that Duoneb via nebulizer will be given from 10 PM 04/04/18 through 10 PM 04/05/18 for the findings on respiratory exam at the time of admission. Ryland Pearson D.O.
[2018-04-07 09:14] LABS: BANDS 1 % (0-2); EOSINOPHIL 2 % (0-4); LYMPHOCYTE 5 % (20-40); MONOCYTE 6 % (0-10); NEUTROPHIL 86 % (50-75); PLATELET ESTIMATE NORMAL (NORMAL); TOTAL CELLS COUNTED 100
[2018-04-07 09:15] LABS: ANISOCYTOSIS MODERATE; HYPOCHROMIC SLIGHT; POLYCHROMIC SLIGHT
[2018-04-07 09:16] LABS: LARGE PLATELETS PRESENT; TOXIC GRANULATION PRESENT
[2018-04-07] MEDS: Lactobacillus Acidophilus 500 MU Cap PO SCH ×2 (09:34→17:31)
[2018-04-07] MEDS: Multiple Vitamins Tab PO SCH (09:34)
--- NOTE | 2018-04-07 15:02 | CP.PCM.PN ---
Subjective - Date & Time of Evaluation Date of Evaluation: 04/07/18 Time of Evaluation: 14:00 - Subjective Subjective: The patient seen and examined Patient is responsive No shortness of breath No cough noted Afebrile Being treated for pneumonia Continue antibiotics Objective - Vital Signs/Intake and Output Vital Signs (last 24 hours): Temp Pulse Resp BP Pulse Ox 97.5 F L 89 20 153/84 H 95 04/07/18 07:58 04/07/18 13:11 04/07/18 07:58 04/07/18 13:11 04/07/18 07:58 Intake and Output: 04/07/18 04/07/18 06:59 18:59 Output Total 1050 550 Balance -1050 -550 - Medications Medications: Current Medications Albuterol/Ipratropium (Duoneb 3 Mg/0.5 Mg (3 Ml) Ud) 3 ml INH RQ6 PRN PRN Reason: Wheezing Amlodipine Besylate (Norvasc) 10 mg PO DAILY [facility] Last Admin: 04/07/18 09:34 Dose: Not Given Aspirin (Ecotrin) 81 mg PO DAILY [facility] Last Admin: 04/07/18 09:34 Dose: 81 mg Folic Acid (Folic Acid) 1 mg PO DAILY [facility] Last Admin: 04/07/18 09:34 Dose: 1 mg Heparin Sodium (Porcine) (Heparin) 5,000 units SC Q12 [facility] Last Admin: 04/07/18 09:41 Dose: 5,000 units Hydralazine HCl (Apresoline) 50 mg PO Q8H [facility] Last Admin: 04/07/18 13:02 Dose: 50 mg Ceftriaxone Sodium 1 gm/ (Sodium Chloride) 100 mls @ 100 mls/hr IVPB DAILY [facility]; Protocol Last Admin: 04/07/18 09:42 Dose: 100 mls/hr Doxycycline Hyclate 100 mg/ (Sodium Chloride) 100 mls @ 100 mls/hr IVPB Q12H [facility]; Protocol Last Admin: 04/07/18 05:37 Dose: 100 mls/hr Ipratropium [place] (Atrovent) 0.5 mg IH RQ6 PRN PRN Reason: Shortness of Breath Isosorbide Mononitrate (Ismo) 20 mg PO DAILY [facility] Last Admin: 04/07/18 09:34 Dose: 20 mg Lactobacillus Acidophilus (Bacid Acidophilus) 1 cap PO BID [facility] Last Admin: 04/07/18 09:34 Dose: 1 cap Lisinopril (Zestril) 40 mg PO DAILY [facility] Last Admin: 04/07/18 09:35 Dose: Not Given Lorazepam (Ativan) 1 mg IVP Q6H PRN PRN Reason: Symptoms of alcohol withdrawl Last Admin: 04/04/18 18:24 Dose: 1 mg Lorazepam (Ativan) 1 mg PO Q8H [facility]; Taper Stop: 04/09/18 19:59 Last Admin: 04/07/18 12:16 Dose: 1 mg Multivitamins (Hexavitamin) 1 tab PO DAILY [facility] Last Admin: 04/07/18 09:34 Dose: 1 tab Pantoprazole Sodium (Protonix Inj) 40 mg IVP DAILY [facility] Last Admin: 04/07/18 09:34 Dose: 40 mg Rosuvastatin Calcium (Crestor) 5 mg PO HS [facility] Last Admin: 04/06/18 21:09 Dose: 5 mg Thiamine HCl (Vitamin B1 Tab) 100 mg PO DAILY [facility] Last Admin: 04/07/18 09:34 Dose: 100 mg - Labs Labs: 04/07/18 06:18 04/07/18 06:18 PT 16.4 SECONDS (9.7-12.2) H 04/06/18 07:35 INR 1.5 04/06/18 07:35 APTT 28 SECONDS (21-34) 04/06/18 07:35 Assessment and Plan (1) COPD (chronic obstructive pulmonary disease) Status: Acute (2) Pneumonia Status: Acute (3) Diastolic CHF Status: Suspected
--- NOTE | 2018-04-07 15:21 | CP.PCM.PN ---
Subjective - Date & Time of Evaluation Date of Evaluation: 04/07/18 Time of Evaluation: 15:20 - Subjective Subjective: Events reviewed Objective - Vital Signs/Intake and Output Vital Signs (last 24 hours): Temp Pulse Resp BP Pulse Ox 97.5 F L 89 20 153/84 H 95 04/07/18 07:58 04/07/18 13:11 04/07/18 07:58 04/07/18 13:11 04/07/18 07:58 Intake and Output: 04/07/18 04/07/18 06:59 18:59 Output Total 1050 550 Balance -1050 -550 - Medications Medications: Current Medications Albuterol/Ipratropium (Duoneb 3 Mg/0.5 Mg (3 Ml) Ud) 3 ml INH RQ6 PRN PRN Reason: Wheezing Amlodipine Besylate (Norvasc) 10 mg PO DAILY [facility] Last Admin: 04/07/18 09:34 Dose: Not Given Aspirin (Ecotrin) 81 mg PO DAILY [facility] Last Admin: 04/07/18 09:34 Dose: 81 mg Folic Acid (Folic Acid) 1 mg PO DAILY [facility] Last Admin: 04/07/18 09:34 Dose: 1 mg Heparin Sodium (Porcine) (Heparin) 5,000 units SC Q12 [facility] Last Admin: 04/07/18 09:41 Dose: 5,000 units Hydralazine HCl (Apresoline) 50 mg PO Q8H [facility] Last Admin: 04/07/18 13:02 Dose: 50 mg Ceftriaxone Sodium 1 gm/ (Sodium Chloride) 100 mls @ 100 mls/hr IVPB DAILY [facility]; Protocol Last Admin: 04/07/18 09:42 Dose: 100 mls/hr Doxycycline Hyclate 100 mg/ (Sodium Chloride) 100 mls @ 100 mls/hr IVPB Q12H [facility]; Protocol Last Admin: 04/07/18 05:37 Dose: 100 mls/hr Ipratropium [place] (Atrovent) 0.5 mg IH RQ6 PRN PRN Reason: Shortness of Breath Isosorbide Mononitrate (Ismo) 20 mg PO DAILY [facility] Last Admin: 04/07/18 09:34 Dose: 20 mg Lactobacillus Acidophilus (Bacid Acidophilus) 1 cap PO BID [facility] Last Admin: 04/07/18 09:34 Dose: 1 cap Lisinopril (Zestril) 40 mg PO DAILY [facility] Last Admin: 04/07/18 09:35 Dose: Not Given Lorazepam (Ativan) 1 mg IVP Q6H PRN PRN Reason: Symptoms of alcohol withdrawl Last Admin: 04/04/18 18:24 Dose: 1 mg Lorazepam (Ativan) 1 mg PO Q8H [facility]; Taper Stop: 04/09/18 19:59 Last Admin: 04/07/18 12:16 Dose: 1 mg Multivitamins (Hexavitamin) 1 tab PO DAILY [facility] Last Admin: 04/07/18 09:34 Dose: 1 tab Pantoprazole Sodium (Protonix Inj) 40 mg IVP DAILY [facility] Last Admin: 04/07/18 09:34 Dose: 40 mg Rosuvastatin Calcium (Crestor) 5 mg PO HS [facility] Last Admin: 04/06/18 21:09 Dose: 5 mg Thiamine HCl (Vitamin B1 Tab) 100 mg PO DAILY [facility] Last Admin: 04/07/18 09:34 Dose: 100 mg - Labs Labs: 04/07/18 06:18 04/07/18 06:18 PT 16.4 SECONDS (9.7-12.2) H 04/06/18 07:35 INR 1.5 04/06/18 07:35 APTT 28 SECONDS (21-34) 04/06/18 07:35 - Constitutional Appears: Cachectic, Chronically Ill - Respiratory Exam Respiratory Exam: Wheezes, NORMAL BREATHING PATTERN - Cardiovascular Exam Cardiovascular Exam: REGULAR RHYTHM, RRR, +S1, +S2. absent: JVD Additional comments: Dry gangrene, stasis dermatitis, - GI/Abdominal Exam GI & Abdominal Exam: Normal Bowel Sounds. absent: Organomegaly Assessment and Plan - Assessment and Plan (Free Text) Assessment: 58 y/o homeless male with prior CVA and HTN Echo: images directly seen by me from 08/2017: Normal LVEF, Mild LVH, grade 1 DD, normal PASP, no significant valvular abnormalities. No need to repeat echo as clinically does not appear to be in ADHF. CXR: patchy atelectasis CT head: microvascular changes, old L. occipital infarct Renal U/S: L. nephrolithiasis, incidental gall stones; no hydronephrosis L. foot xray: degenerative changes Patient has chronci diastolic dysfunction without overt volume overload. Wall motion and ejection fraction were normal Underlying Stage 2 CKD may be combination of diuretics and dehydration with intrinsic hypertensive medical renal disease. Plan: BP control with hydralazine, and norvasc 10 will consider ARB or ROBERT-I : compliance will always be a challenge with this patient. Monitor for sepsis, bacteremia and continue wound care and supportive ABX for L. foor wound/infection Cont ASA/statin for probable underlying ASCVD. No additional testing or Rx planned at this time. Consider neuropathy work up if pain persists
--- NOTE | 2018-04-08 07:18 | CP.PCM.PN ---
Subjective - Date & Time of Evaluation Date of Evaluation: 04/07/18 Time of Evaluation: 14:00 - Subjective Subjective: Patient much more alert today; tolerating diet; able to answer questions appropriately; Objective - Vital Signs/Intake and Output Vital Signs (last 24 hours): Temp Pulse Resp BP Pulse Ox 97.4 F L 93 H 20 151/84 H 99 04/08/18 00:00 04/08/18 00:00 04/08/18 00:00 04/08/18 00:00 04/08/18 00:00 - Medications Medications: Current Medications Albuterol/Ipratropium (Duoneb 3 Mg/0.5 Mg (3 Ml) Ud) 3 ml INH RQ6 PRN PRN Reason: Wheezing Amlodipine Besylate (Norvasc) 10 mg PO DAILY [facility] Last Admin: 04/07/18 09:34 Dose: Not Given Aspirin (Ecotrin) 81 mg PO DAILY [facility] Last Admin: 04/07/18 09:34 Dose: 81 mg Folic Acid (Folic Acid) 1 mg PO DAILY [facility] Last Admin: 04/07/18 09:34 Dose: 1 mg Heparin Sodium (Porcine) (Heparin) 5,000 units SC Q12 [facility] Last Admin: 04/07/18 21:52 Dose: 5,000 units Hydralazine HCl (Apresoline) 50 mg PO Q8H [facility] Last Admin: 04/08/18 05:01 Dose: 50 mg Ceftriaxone Sodium 1 gm/ (Sodium Chloride) 100 mls @ 100 mls/hr IVPB DAILY [facility]; Protocol Last Admin: 04/07/18 09:42 Dose: 100 mls/hr Doxycycline Hyclate 100 mg/ (Sodium Chloride) 100 mls @ 100 mls/hr IVPB Q12H [facility]; Protocol Last Admin: 04/08/18 03:53 Dose: 100 mls/hr Ipratropium [place] (Atrovent) 0.5 mg IH RQ6 PRN PRN Reason: Shortness of Breath Isosorbide Mononitrate (Ismo) 20 mg PO DAILY [facility] Last Admin: 04/07/18 09:34 Dose: 20 mg Lactobacillus Acidophilus (Bacid Acidophilus) 1 cap PO BID [facility] Last Admin: 04/07/18 17:31 Dose: 1 cap Lisinopril (Zestril) 40 mg PO DAILY [facility] Last Admin: 04/07/18 09:35 Dose: Not Given Lorazepam (Ativan) 1 mg IVP Q6H PRN PRN Reason: Symptoms of alcohol withdrawl Last Admin: 04/04/18 18:24 Dose: 1 mg Lorazepam (Ativan) 1 mg PO Q12H [facility]; Taper Stop: 04/09/18 19:59 Last Admin: 04/07/18 20:58 Dose: 1 mg Multivitamins (Hexavitamin) 1 tab PO DAILY [facility] Last Admin: 04/07/18 09:34 Dose: 1 tab Pantoprazole Sodium (Protonix Inj) 40 mg IVP DAILY [facility] Last Admin: 04/07/18 09:34 Dose: 40 mg Rosuvastatin Calcium (Crestor) 5 mg PO HS [facility] Last Admin: 04/07/18 21:52 Dose: 5 mg Thiamine HCl (Vitamin B1 Tab) 100 mg PO DAILY [facility] Last Admin: 04/07/18 09:34 Dose: 100 mg - Labs Labs: 04/07/18 06:18 04/07/18 06:18 PT 16.4 SECONDS (9.7-12.2) H 04/06/18 07:35 INR 1.5 04/06/18 07:35 APTT 28 SECONDS (21-34) 04/06/18 07:35 - Constitutional Appears: Non-toxic, No Acute Distress - Eye Exam Eye Exam: Normal appearance - Respiratory Exam Respiratory Exam: Clear to Ausculation Bilateral. absent: Respiratory Distress - Cardiovascular Exam Cardiovascular Exam: RRR, +S1, +S2 - GI/Abdominal Exam GI & Abdominal Exam: Soft. absent: Distended, Tenderness - Extremities Exam Additional comments: no leg edema; - Neurological Exam Neurological Exam: Alert, Awake - Psychiatric Exam Psychiatric exam: Normal Mood. absent: Agitated - Skin Skin Exam: Warm. absent: Cyanosis Assessment and Plan (1) Acute kidney injury Assessment & Plan: Pre-renal etiology, resolved after holding diuretics; patient now can tolerate adquate PO intake; no need for IVF; Status: Acute (2) Renovascular hypertension Assessment & Plan: Uncontrolled htn; preliminary result from renal artery duplex reporting unilateral stenosis (not documented, was relayed verbally); increasing ROBERT inhibitor to max dose (lisinopril 40 mg daily); additional meds as needed to control BP; at risk for flash pulmonary edema without adequate BP control especially given diastolic dysfunction; Status: Acute
[2018-04-08 07:34] LABS: BASO % 0.4 % (0.0-2.0); EOS # 0.5 K/uL (0.0-0.7); EOS % 6.3 % (0.0-4.0); HEMOGLOBIN 12.5 g/dL (12.0-18.0); LYMPH # 0.8 K/uL (1.0-4.3); LYMPH % 9.6 % (20.0-40.0); MEAN CELL VOLUME 91.8 fL (80.0-94.0); MEAN CORPUSCULAR HEMOGLOBIN 29.9 pg (27.0-31.0); MEAN CORPUSCULAR HGB CONC 32.6 g/dL (33.0-37.0); MEAN PLATELET VOLUME 9.5 fL (7.2-11.7); MONO # 1.1 K/uL (0.0-0.8); MONO % 13.1 % (0.0-10.0); NEUT # 5.8 K/uL (1.8-7.0); NEUT % 70.6 % (50.0-75.0); PLATELET COUNT 173 K/uL (130-400); RBC 4.19 Mil/uL (4.40-5.90); RED CELL DISTRIBUTION WIDTH 17.4 % (11.5-14.5); WHITE BLOOD COUNT 8.2 K/uL (4.8-10.8)
--- NOTE | 2018-04-08 07:42 | CP.PCM.PN ---
Addendum entered and electronically signed by Jean-Pierre Escalera 04/08/18 18:14: Mycoplasma Ig.19 (normal: < 0.9) Mycoplasma IgM: negative Original Note: <Jean-Pierre Escalera - Last Filed: 04/08/18 10:22> Subjective - Date & Time of Evaluation Date of Evaluation: 04/08/18 Time of Evaluation: 07:42 - Subjective Subjective: PGY-1 Medicine progress note for Dr. Pearson Patient was seen and examined at bedside. Patient is eating breakfast and in no distress. Patient is more responsive today, however ROS is still limited, patient was not able to verbalize full sentences. Objective - Vital Signs/Intake and Output Vital Signs (last 24 hours): Temp Pulse Resp BP Pulse Ox 97.3 F L 94 H 20 165/95 H 95 04/08/18 07:40 04/08/18 07:40 04/08/18 07:40 04/08/18 07:40 04/08/18 07:40 - Medications Medications: Current Medications Albuterol/Ipratropium (Duoneb 3 Mg/0.5 Mg (3 Ml) Ud) 3 ml INH RQ6 PRN PRN Reason: Wheezing Amlodipine Besylate (Norvasc) 10 mg PO DAILY [facility] Last Admin: 04/07/18 09:34 Dose: Not Given Aspirin (Ecotrin) 81 mg PO DAILY [facility] Last Admin: 04/07/18 09:34 Dose: 81 mg Folic Acid (Folic Acid) 1 mg PO DAILY [facility] Last Admin: 04/07/18 09:34 Dose: 1 mg Heparin Sodium (Porcine) (Heparin) 5,000 units SC Q12 [facility] Last Admin: 04/07/18 21:52 Dose: 5,000 units Hydralazine HCl (Apresoline) 50 mg PO Q8H [facility] Last Admin: 04/08/18 05:01 Dose: 50 mg Ceftriaxone Sodium 1 gm/ (Sodium Chloride) 100 mls @ 100 mls/hr IVPB DAILY [facility]; Protocol Last Admin: 04/07/18 09:42 Dose: 100 mls/hr Doxycycline Hyclate 100 mg/ (Sodium Chloride) 100 mls @ 100 mls/hr IVPB Q12H [facility]; Protocol Last Admin: 04/08/18 03:53 Dose: 100 mls/hr Ipratropium [place] (Atrovent) 0.5 mg IH RQ6 PRN PRN Reason: Shortness of Breath Isosorbide Mononitrate (Ismo) 20 mg PO DAILY [facility] Last Admin: 04/07/18 09:34 Dose: 20 mg Lactobacillus Acidophilus (Bacid Acidophilus) 1 cap PO BID [facility] Last Admin: 04/07/18 17:31 Dose: 1 cap Lisinopril (Zestril) 40 mg PO DAILY [facility] Last Admin: 04/07/18 09:35 Dose: Not Given Lorazepam (Ativan) 1 mg IVP Q6H PRN PRN Reason: Symptoms of alcohol withdrawl Last Admin: 04/04/18 18:24 Dose: 1 mg Lorazepam (Ativan) 1 mg PO Q12H [facility]; Taper Stop: 04/09/18 19:59 Last Admin: 04/07/18 20:58 Dose: 1 mg Multivitamins (Hexavitamin) 1 tab PO DAILY [facility] Last Admin: 04/07/18 09:34 Dose: 1 tab Pantoprazole Sodium (Protonix Inj) 40 mg IVP DAILY [facility] Last Admin: 04/07/18 09:34 Dose: 40 mg Rosuvastatin Calcium (Crestor) 5 mg PO HS [facility] Last Admin: 04/07/18 21:52 Dose: 5 mg Thiamine HCl (Vitamin B1 Tab) 100 mg PO DAILY [facility] Last Admin: 04/07/18 09:34 Dose: 100 mg - Labs Labs: 04/08/18 07:28 04/07/18 06:18 PT 16.4 SECONDS (9.7-12.2) H 04/06/18 07:35 INR 1.5 04/06/18 07:35 APTT 28 SECONDS (21-34) 04/06/18 07:35 - Additional Findings Additional findings: - Head Exam Additional comments: several scabs throughout body - Eye Exam Eye Exam: EOMI - ENT Exam ENT Exam: Mucous Membranes Dry - Respiratory Exam Respiratory Exam: absent: Rales, Rhonchi, Wheezes Additional comments: - Cardiovascular Exam Cardiovascular Exam: +S1, +S2. absent: Systolic Murmur - GI/Abdominal Exam GI & Abdominal Exam: Normal Bowel Sounds, Soft - Extremities Exam Additional comments: B/L pitting edema from feet to lower leg Tender to palpation on the plantar surface of feet and dorsal part of foot. Several callous on plantar/ dorsal side of foot Poor overall foot hygiene, malodorous. No open sores or active bleeding noted. 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 Plan: History of chronic alcohol abuse: - Monitor for signs of withdrawal - Serum alcohol level: < 10 - Upon review of prior records, patient is known to present with altered mental status 2/2 alcohol intoxication - UDS: Negative - On Ativan taper, last dose is on 04/09 at 8PM - Ativan 1mg PO Q6H and Ativan 1mg IV Q6 PRN - Vitamin B12: 511m Folate levels: > 20 - Thiamine, folic acid, multivitamin - PT/OT evaluation once patient is more stable - CT head (04/04): Chronic microvascular ischemic changes. 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 B/l basal ganglia and R thalamic lacunar infarcts. Focal encephalomalacia in the R duenas radiata. Hypertension, uncontrolled - Patient not compliant with previous discharge meds - Imdur 20mg PO daily - Lisinopril 10mg PO QD - Amlodipine 10mg PO QD - Hydralazine 50 mg TID - Secondary HTN workup: - Renal artery duplex: f/u - Plasma metanephrines: f/u - Aldosterone/Plasma renin activity: f/u Lower extremitie swelling: - No evidence of cellulitis, lower extremities show blanchable erythema - Doxycycline 100 mg IV Q12H started on 04/04 - Ceftriaxone 1mg IV Q24H started on 04/04 - Lower extremities venous doppler: f/u - Blood culture (04/04): No growth to date - Received Clindamycin in the ED - Podiatry, Dr. Gomez consulted - Foot Xray (04/03): Degenerative changes of the forefoot. No acute fractures, subluxations. B/l hammertoe deformities are identified diffusely. Severe hallux valgus deformity noted. Large plantar calcaneal spurs b/l. Pneumonia: - Pulmonology, Dr. Lebron consulted - Will repeat AP/PA/Lateral chest xray once patient is more steady - Doxycycline 100 mg IV Q12H - Ceftriaxone 1mg IV Q24H - Atrovent INH Q6 PRN - M. pneumoniae: f/u - Legionella, s. pneumonia, influenza: Negative - CXR (04/04): Limited patchy atelectasis medial right base with remaining lung liu clear. Stable prominent cardiac silhouette. - CT chest (04/04): Small to medium size right-sided effusion and mild right basilar atelectasis. Small opacities are also present within the middle lobe possibly representing rounded atelectasis and/or infiltrates. There also appears to be some mild dependent atelectasis in the left lung base. Trace right-sided effusion. Minimal linear scarring changes left lingular region. Suspect mild underlying pulmonary venous congestive changes. There also appears to be a few scattered parenchymal calcifications likely representing granulomata within both lower lung liu as well. Cardiomegaly Scabies - Applied Permethrin 5% TOP on 04/04 - Contact precaution - Will reapply Permethrin 12% TOP on 04/10 - Microbiology did not accept skin cultures since specimen collected incorrectly HX of CHF with reserved EF: - Cardiology, Dr. Dobbs consulted - No additional echo indicated on this admission as patient is not showing symptoms of heart failure - ProBNP: 29,300- increased from previous admissions - Previous Echo (08/2017): LV normal size, borderline LV hypertrophy, Systolic function borderline, mild septal hypokinesis, LVEF >50% COPD exacerbation, resolved: - Pulmonology, Dr. Lebron consulted - Duoneb Q6 PRN - Atrovent INH Q6 PRN - Patient is stable, O2 % saturation: 95-100% on room air JASWANT, resolved: - BUN/ Cr today: 45/1.3 - Nephrology, Dr. Lizarraga consulted - Avoid nephrotoxic agents (NSAIDS, phosphate enema) - Renal artery duplex: f/u - Renal ultrasound (04/05): non-obstructive left nephrolithiasis. Otherwise normal ultrasound Prophylaxis/diet: - DVT: Heparin 5000 units Q12H - GI: Protonix 40mg IVP daily - HHD Case discussed with Dr. Viktoria Escalera, PGY-1 <Ryland Pearson - Last Filed: 04/08/18 18:08> Objective - Vital Signs/Intake and Output Vital Signs (last 24 hours): Temp Pulse Resp BP Pulse Ox 97.3 F L 94 H 20 165/95 H 95 04/08/18 07:40 04/08/18 07:40 04/08/18 07:40 04/08/18 07:40 04/08/18 07:40 - Medications Medications: Current Medications Albuterol/Ipratropium (Duoneb 3 Mg/0.5 Mg (3 Ml) Ud) 3 ml INH RQ6 PRN PRN Reason: Wheezing Amlodipine Besylate (Norvasc) 10 mg PO DAILY [facility] Last Admin: 04/08/18 09:46 Dose: 10 mg Aspirin (Ecotrin) 81 mg PO DAILY [facility] Last Admin: 04/08/18 09:45 Dose: 81 mg Folic Acid (Folic Acid) 1 mg PO DAILY [facility] Last Admin: 04/08/18 09:46 Dose: 1 mg Heparin Sodium (Porcine) (Heparin) 5,000 units SC Q12 [facility] Last Admin: 04/08/18 09:46 Dose: 5,000 units Hydralazine HCl (Apresoline) 75 mg PO Q8H [facility] Ceftriaxone Sodium 1 gm/ (Sodium Chloride) 100 mls @ 100 mls/hr IVPB DAILY [facility]; Protocol Last Admin: 04/08/18 09:46 Dose: 100 mls/hr Doxycycline Hyclate 100 mg/ (Sodium Chloride) 100 mls @ 100 mls/hr IVPB Q12H [facility]; Protocol Last Admin: 04/08/18 03:53 Dose: 100 mls/hr Ipratropium [place] (Atrovent) 0.5 mg IH RQ6 PRN PRN Reason: Shortness of Breath Isosorbide Mononitrate (Ismo) 20 mg PO DAILY [facility] Last Admin: 04/08/18 09:45 Dose: 20 mg Lactobacillus Acidophilus (Bacid Acidophilus) 1 cap PO BID [facility] Last Admin: 04/08/18 09:46 Dose: 1 cap Lisinopril (Zestril) 40 mg PO DAILY [facility] Last Admin: 04/08/18 09:46 Dose: 40 mg Lorazepam (Ativan) 1 mg IVP Q6H PRN PRN Reason: Symptoms of alcohol withdrawl Last Admin: 04/04/18 18:24 Dose: 1 mg Lorazepam (Ativan) 1 mg PO Q12H [facility]; Taper Stop: 04/09/18 19:59 Last Admin: 04/08/18 08:16 Dose: 1 mg Multivitamins (Hexavitamin) 1 tab PO DAILY [facility] Last Admin: 04/08/18 09:46 Dose: 1 tab Pantoprazole Sodium (Protonix Inj) 40 mg IVP DAILY [facility] Last Admin: 04/08/18 09:46 Dose: 40 mg Rosuvastatin Calcium (Crestor) 5 mg PO HS [facility] Last Admin: 04/07/18 21:52 Dose: 5 mg Thiamine HCl (Vitamin B1 Tab) 100 mg PO DAILY [facility] Last Admin: 04/08/18 09:46 Dose: 100 mg - Labs Labs: 04/08/18 07:28 04/08/18 07:28 PT 16.4 SECONDS (9.7-12.2) H 04/06/18 07:35 INR 1.5 04/06/18 07:35 APTT 28 SECONDS (21-34) 04/06/18 07:35 Attending/Attestation - Attestation I have personally seen and examined this patient.: Yes I have fully participated in the care of the patient.: Yes I have reviewed all pertinent clinical information, including history, physical exam and plan: Yes Notes (Text): 04/08/18 11:04 Medicine Attending Note Patient was seen and examined at 11:00 AM 554 P 04/08/18 Please note that on 04/04/18 patient could not provide any detail concerning: his medical history, how he came to be here, what he last remembers prior to coming to hospital, where he stays (which care home), if he takes any medications, when his last drink of alcohol was. Review of prior records on 04/04/18 indicated that the patient has had visits to this hospital for Alcohol Intoxication and has a history of Alcohol Abuse, Diastolic Heart Failure, HTN Urgency, Bilateral Leg Edema/Cellulitis, CVA, Nicotine Addiction He is currently being treated for likely Alcohol Withdrawl, HFpEF Exacerbation, Possible RML Pneumonia, Uncontrolled Blood Pressure, Possible Scabies. Bilateral expiratory wheezing in the lower lung liu is NO LONGER PRESENT: Treated with Solumedrol 125 mg IV x 1 dose 04/05/18 and Duoneb x 4 doses that ended at 10 PM on 04/05/18 Bilateral Venous Dopplers 04/05/18 did NOT show any DVTs. He is on Day 4 Ativan Taper: He is more awake today and answering questions and following commands. He unfortunately still can not provide any information concerning his medication history or how he came to be here. Tremulousness is NOT present. Nursing instructed to hold Ativan dose if patient is asleep. Last dose of Ativan will be at 7 to 8 PM on 04/09/18 Blood pressure is labile: He is on Norvasc, Imdur, Hydralazine, and Lisinopril. His Hydralazine has been increased to 75 mg PO Q8H 04/08/18 F/U results of Renal Artery Scan 04/06/18 We will get repeat Chest X Ray PA and Lateral once patient has finished Ativan Taper and he is able to stand. Will need to start PT 04/10/18 once done with Ativan Taper and patient is able to participate. Upon last admission, he required walker and discharge to care home that accepted individuals with walkers. Please see Assessment and Plans below for further details. Upon ROS: Patient is arousable but not responding to questions due somnolence General: Awake and follows commands. Can NOT tell me day, date, year, or where he is (all of this information was provided to him and he repeated it back to me on 04/07/18 however patient could not answer the questions today. Again the information was provided to him today) HEENT: NCA, Pupils are round and reactive to light, EOMI, NO cervical/supraclavicular/submandibular lymphadenopathy, NO thyromegaly Cardio: NS1 and NS2, NO M/R/G, NO JVD, NO hepatojugular reflux Respiratory: CTA B/L NO R/R/W. Wheezing in the lower lung liu NO longer present GI: BSx4, Soft, ND, NO HSM, NO guarding, NO rebound tenderness Ext: Pulses are strong and equal, Capillary Refill is 2 seconds, 1+ pitting edema of feet, trace pitting edema of the ankles to just below the tibial tuberosities Neuro: CN II through XII are grossly intact Skin: Multiple excoriations and eschars from the back, chest, abdomen, down to the legs, NO ulceration noted on any of the gabriel prominences or between the webbing of his toes 1). Alcohol Withdrawl Although blood alcohol level is normal, considering finding of tremulousness on exam and history, Ativan Taper has been started Thiamine 100 mg PO 1x/day Folic Acid 1 mg PO 1x/day MVI PO 1x/day Ativan 1 mg IV Q6H PRN Agitation/Worsening of withdrawl/Seizures Vitamin B12 normal at 512 Folic Acid normal at > 20 2). HFpEF (Diastolic Heart Failure) Exacerbation Noted edema on lower extremities (although chronic as per prior records, patient could not provide any information if this had worsened) Admitting Chest X Ray and CT Chest indicated pulmonary vascular congestion ProBNP significantly elevated copared to prior values Prior Echo 08/2017 showed LV noramal, borderline LV hypertrophy, septal hypokinesis, and Grade I abnormal relaxation pattern Repeat Echo canceled as recent one done in August 2017 Lasix 20 mg IV Q12H for now despite the elevated Cr: needed to help with the pulmonary congestion Was discharged back in August 2017 on Zestril and Coreg: hold the Zestril due to the elevated Cr and hold the Coreg due to acute HFpEF exacerbation Hydralazine 75 mg PO TID Isosorbide Mononitrate 20 mg PO 1x/day Head of Bed at 45 Degrees Daily Weights Follow up further recommendations from Cardiology Dr. Dobbs 3). Hx of Bilateral Leg Edema/Cellulitis Raising both legs causes the erythema (most superior aspect demarcated with javier k ink bilaterally) of the lower legs to disappear, there is NO warmth, and NO tenderness to palpation therefore I do NOT believe this to be cellulitis Bilateral Venous Dopplers of LE did NOT show any DVTs Lasix 20 mg IV Q12H for now 4). Elevated BUN/Cr Bilateral Renal U/S 04/04/18: NO obstructive nephrolithiasis F/U Renal Artery Scan report Lasix discontinued Nephrology Dr. Lizarraga 5). Hx HTN Hydralazine 75 mg PO TID Isosorbide Mononitrate 20 mg PO 1x/day Lisinopril 40 mg PO 1x/day Bilateral Renal U/S 04/04/18 was unremarkable F/U results of Renal Artery Scan 04/06/18 6). Excorations and Eschars throughout the body Possible Scabies? Permethrin 5 % Cream administered in the morning and leave on for 14 hours and then wash: nursing is aware Will likely need to be repeated on 04/10/18 7). Possible RML Pneumonia and presence of Small to Medium Right Pleural Effusion CT Chest: small to medium size right sided effusion and mild right basilar atelectasis, small opacities are also present within the middle lobe possible representing rounded atelectasis and/or infiltrate, mild pulmonary venous congestion, cardiomegaly Recephin 1 gm IV Q24H Doxycycline 100 mg IV Q12H Urine Legionella Ag negative Urine Strep pneumoniae Ag negative F/U Mycoplasma IgG, IgM Rapid Influenza negative Blood Culture 04/03/18 is negative to date After treatment of HFpEF exacerbation/diuresis, will repeat the Chest X Ray with PA and Lateral to see if findings in RML persist or not to see if antibiotics need to be continued 8). Hx CVA This as per prior records CT Head 04/04/18: chronic microvascular changes, encephalomalacia from old left occipital lobe infarct with mild ex vacuo dilatation of the posterior horn and left lateral ventricle, encephalomalacia of the right duenas radiata, bilateral basal ganglia, and right thalmic lacunar infarct ASA 81 mg PO 1x/day Crestor 5 mg PO 1x/day TSH 3.00 T4 1.77 LDL 81 Total Cholesterol 127 Triglycerides 122 HDL low at 21 F/U HgBA1C 9). Hx Nicotine Addiction and Possible COPD Exacerbatoin Could there be possible COPD with exacerbation considering the wheezing noted on exam and the flattening of diaphragm on admitting chest x ray? Patient stated that he no longer smoked 10). Prophylaxis DVT Risk Score is 4: Age, CHF, Pneumonia, BMI 30 therefore Heparin 5,000 Units SC Q8H and Bilateral SCS NO GI prophylaxis indicated at this time Lactobacillus 1 tab PO 2x/day as he is on antibiotics F/U PT/OT on 04/10/18: please note that patient required walker upon discharge in August 2017 Heart Health 2 gm Na Diet Disposition: Will need to finish Ativan Taper 04/09/18. Will need to start PT/OT 04/10/18. Will need to repeat Permethrin applicaton from head to toe on 04/10/18. Will need to get CXR PA/Lateral once patient is able to stand to see if there is a true RML Infiltrate. Will need to be able to use a rolling walker. Speak with [employer]iter[employer] concerning eventual discharge to [facility] that accepts people when patient is stable Ryland Pearson D.O.
[2018-04-08 08:13] LABS: ALB/GLOB RATIO 0.9 (1.0-2.1); ALT/SGPT 40 U/L (21-72); AST/SGOT 43 U/L (17-59); BLOOD UREA NITROGEN 45 mg/dL (9-20); CALCIUM 8.4 mg/dl (8.6-10.4); GFR NON-AFRICAN AMERICAN 56
--- NOTE | 2018-04-08 09:17 | CP.PCM.PN ---
Subjective - Date & Time of Evaluation Date of Evaluation: 04/08/18 Time of Evaluation: 09:17 - Subjective Subjective: Events reviewed. Objective - Vital Signs/Intake and Output Vital Signs (last 24 hours): Temp Pulse Resp BP Pulse Ox 97.3 F L 94 H 20 165/95 H 95 04/08/18 07:40 04/08/18 07:40 04/08/18 07:40 04/08/18 07:40 04/08/18 07:40 - Medications Medications: Current Medications Albuterol/Ipratropium (Duoneb 3 Mg/0.5 Mg (3 Ml) Ud) 3 ml INH RQ6 PRN PRN Reason: Wheezing Amlodipine Besylate (Norvasc) 10 mg PO DAILY [facility] Last Admin: 04/07/18 09:34 Dose: Not Given Aspirin (Ecotrin) 81 mg PO DAILY [facility] Last Admin: 04/07/18 09:34 Dose: 81 mg Folic Acid (Folic Acid) 1 mg PO DAILY [facility] Last Admin: 04/07/18 09:34 Dose: 1 mg Heparin Sodium (Porcine) (Heparin) 5,000 units SC Q12 [facility] Last Admin: 04/07/18 21:52 Dose: 5,000 units Hydralazine HCl (Apresoline) 50 mg PO Q8H [facility] Last Admin: 04/08/18 05:01 Dose: 50 mg Ceftriaxone Sodium 1 gm/ (Sodium Chloride) 100 mls @ 100 mls/hr IVPB DAILY [facility]; Protocol Last Admin: 04/07/18 09:42 Dose: 100 mls/hr Doxycycline Hyclate 100 mg/ (Sodium Chloride) 100 mls @ 100 mls/hr IVPB Q12H [facility]; Protocol Last Admin: 04/08/18 03:53 Dose: 100 mls/hr Ipratropium [place] (Atrovent) 0.5 mg IH RQ6 PRN PRN Reason: Shortness of Breath Isosorbide Mononitrate (Ismo) 20 mg PO DAILY [facility] Last Admin: 04/07/18 09:34 Dose: 20 mg Lactobacillus Acidophilus (Bacid Acidophilus) 1 cap PO BID [facility] Last Admin: 04/07/18 17:31 Dose: 1 cap Lisinopril (Zestril) 40 mg PO DAILY [facility] Last Admin: 04/07/18 09:35 Dose: Not Given Lorazepam (Ativan) 1 mg IVP Q6H PRN PRN Reason: Symptoms of alcohol withdrawl Last Admin: 04/04/18 18:24 Dose: 1 mg Lorazepam (Ativan) 1 mg PO Q12H [facility]; Taper Stop: 04/09/18 19:59 Last Admin: 04/08/18 08:16 Dose: 1 mg Multivitamins (Hexavitamin) 1 tab PO DAILY [facility] Last Admin: 04/07/18 09:34 Dose: 1 tab Pantoprazole Sodium (Protonix Inj) 40 mg IVP DAILY [facility] Last Admin: 04/07/18 09:34 Dose: 40 mg Rosuvastatin Calcium (Crestor) 5 mg PO HS [facility] Last Admin: 04/07/18 21:52 Dose: 5 mg Thiamine HCl (Vitamin B1 Tab) 100 mg PO DAILY [facility] Last Admin: 04/07/18 09:34 Dose: 100 mg - Labs Labs: 04/08/18 07:28 04/08/18 07:28 PT 16.4 SECONDS (9.7-12.2) H 04/06/18 07:35 INR 1.5 04/06/18 07:35 APTT 28 SECONDS (21-34) 04/06/18 07:35 Assessment and Plan - Assessment and Plan (Free Text) Assessment: - Constitutional Appears: Cachectic, Chronically Ill - Respiratory Exam Respiratory Exam: Wheezes, NORMAL BREATHING PATTERN - Cardiovascular Exam Cardiovascular Exam: REGULAR RHYTHM, RRR, +S1, +S2. absent: JVD Additional comments: Dry gangrene, stasis dermatitis, - GI/Abdominal Exam GI & Abdominal Exam: Normal Bowel Sounds. absent: Organomegaly Assessment and Plan - Assessment and Plan (Free Text) Assessment: 58 y/o homeless male with prior CVA and HTN Echo: images directly seen by me from 08/2017: Normal LVEF, Mild LVH, grade 1 DD, normal PASP, no significant valvular abnormalities. No need to repeat echo as clinically does not appear to be in ADHF. CXR: patchy atelectasis CT head: microvascular changes, old L. occipital infarct Renal U/S: L. nephrolithiasis, incidental gall stones; no hydronephrosis L. foot xray: degenerative changes Patient has chronci diastolic dysfunction without overt volume overload. Wall motion and ejection fraction were normal Underlying Stage 2 CKD may be combination of diuretics and dehydration with intrinsic hypertensive medical renal disease. Plan: BP control with hydralazine, and norvasc 10 agree with Lisinopril : compliance will always be a challenge with this patient. Monitor for sepsis, bacteremia and continue wound care and supportive ABX for L. foor wound/infection Cont ASA/statin for probable underlying ASCVD. No additional testing or Rx planned at this time. Consider neuropathy work up if pain persists
[2018-04-08 09:29] LABS: EOSINOPHIL 6 % (0-4); LYMPHOCYTE 8 % (20-40); METAMYELOCYTE 1 % (0-0); MONOCYTE 14 % (0-10); NEUTROPHIL 71 % (50-75); PLATELET ESTIMATE MARKEDLY INCREASED (NORMAL); TOTAL CELLS COUNTED 100
[2018-04-08 09:30] LABS: ANISOCYTOSIS MODERATE; TOXIC GRANULATION PRESENT
[2018-04-08 09:32] LABS: HYPOCHROMIC SLIGHT; LARGE PLATELETS PRESENT; POLYCHROMIC SLIGHT
[2018-04-08] MEDS: Lactobacillus Acidophilus 500 MU Cap PO SCH ×2 (09:46→18:06)
[2018-04-08] MEDS: Multiple Vitamins Tab PO SCH (09:46)
--- NOTE | 2018-04-08 11:58 | CP.PCM.PN ---
Subjective - Date & Time of Evaluation Date of Evaluation: 04/08/18 Time of Evaluation: 11:57 - Subjective Subjective: Pulmonary Follow up, Covering Dr Lebron The patient was Seen/interviewed and examined by me at the bedside, Medical records reviewed and Management issues were discussed and formulated with the house staff. Events reviewed Awake, oriented Comfortable, in no acute distress Denies shortness of breath or cough No chest pain Being treated for pneumonia Continue antibiotics Objective - Vital Signs/Intake and Output Vital Signs (last 24 hours): Temp Pulse Resp BP Pulse Ox 97.3 F L 94 H 20 165/95 H 95 04/08/18 07:40 04/08/18 07:40 04/08/18 07:40 04/08/18 07:40 04/08/18 07:40 - Medications Medications: Current Medications Albuterol/Ipratropium (Duoneb 3 Mg/0.5 Mg (3 Ml) Ud) 3 ml INH RQ6 PRN PRN Reason: Wheezing Amlodipine Besylate (Norvasc) 10 mg PO DAILY [facility] Last Admin: 04/08/18 09:46 Dose: 10 mg Aspirin (Ecotrin) 81 mg PO DAILY [facility] Last Admin: 04/08/18 09:45 Dose: 81 mg Folic Acid (Folic Acid) 1 mg PO DAILY [facility] Last Admin: 04/08/18 09:46 Dose: 1 mg Heparin Sodium (Porcine) (Heparin) 5,000 units SC Q12 [facility] Last Admin: 04/08/18 09:46 Dose: 5,000 units Hydralazine HCl (Apresoline) 75 mg PO Q8H [facility] Last Admin: 04/08/18 11:22 Dose: 75 mg Ceftriaxone Sodium 1 gm/ (Sodium Chloride) 100 mls @ 100 mls/hr IVPB DAILY [facility]; Protocol Last Admin: 04/08/18 09:46 Dose: 100 mls/hr Doxycycline Hyclate 100 mg/ (Sodium Chloride) 100 mls @ 100 mls/hr IVPB Q12H [facility]; Protocol Last Admin: 04/08/18 03:53 Dose: 100 mls/hr Ipratropium [place] (Atrovent) 0.5 mg IH RQ6 PRN PRN Reason: Shortness of Breath Isosorbide Mononitrate (Ismo) 20 mg PO DAILY [facility] Last Admin: 04/08/18 09:45 Dose: 20 mg Lactobacillus Acidophilus (Bacid Acidophilus) 1 cap PO BID [facility] Last Admin: 04/08/18 09:46 Dose: 1 cap Lisinopril (Zestril) 40 mg PO DAILY [facility] Last Admin: 04/08/18 09:46 Dose: 40 mg Lorazepam (Ativan) 1 mg IVP Q6H PRN PRN Reason: Symptoms of alcohol withdrawl Last Admin: 04/04/18 18:24 Dose: 1 mg Lorazepam (Ativan) 1 mg PO Q12H [facility]; Taper Stop: 04/09/18 19:59 Last Admin: 04/08/18 08:16 Dose: 1 mg Multivitamins (Hexavitamin) 1 tab PO DAILY [facility] Last Admin: 04/08/18 09:46 Dose: 1 tab Pantoprazole Sodium (Protonix Inj) 40 mg IVP DAILY [facility] Last Admin: 04/08/18 09:46 Dose: 40 mg Rosuvastatin Calcium (Crestor) 5 mg PO HS [facility] Last Admin: 04/07/18 21:52 Dose: 5 mg Thiamine HCl (Vitamin B1 Tab) 100 mg PO DAILY [facility] Last Admin: 04/08/18 09:46 Dose: 100 mg - Labs Labs: 04/08/18 07:28 04/08/18 07:28 PT 16.4 SECONDS (9.7-12.2) H 04/06/18 07:35 INR 1.5 04/06/18 07:35 APTT 28 SECONDS (21-34) 04/06/18 07:35 - Head Exam Head Exam: ATRAUMATIC, NORMAL INSPECTION, NORMOCEPHALIC - Eye Exam Eye Exam: EOMI, Normal appearance, PERRL - ENT Exam ENT Exam: Mucous Membranes Moist, Normal Exam - Respiratory Exam Respiratory Exam: Clear to Ausculation Bilateral, NORMAL BREATHING PATTERN - Cardiovascular Exam Cardiovascular Exam: REGULAR RHYTHM, +S1, +S2. absent: Murmur - GI/Abdominal Exam GI & Abdominal Exam: Soft, Normal Bowel Sounds. absent: Tenderness - Neurological Exam Neurological Exam: Alert, Awake, CN II-XII Intact, Normal Gait, Oriented x3 Assessment and Plan (1) Diastolic CHF Status: Acute (2) COPD (chronic obstructive pulmonary disease) Status: Acute (3) Pneumonia Status: Acute
[2018-04-09 06:51] LABS: BASO % 0.3 % (0.0-2.0); EOS # 0.7 K/uL (0.0-0.7); EOS % 8.9 % (0.0-4.0); HEMOGLOBIN 12.3 g/dL (12.0-18.0); LYMPH # 0.9 K/uL (1.0-4.3); LYMPH % 10.7 % (20.0-40.0); MEAN CELL VOLUME 90.5 fL (80.0-94.0); MEAN CORPUSCULAR HEMOGLOBIN 29.7 pg (27.0-31.0); MEAN CORPUSCULAR HGB CONC 32.8 g/dL (33.0-37.0); MEAN PLATELET VOLUME 9.4 fL (7.2-11.7); MONO # 1.3 K/uL (0.0-0.8); MONO % 15.7 % (0.0-10.0); NEUT # 5.3 K/uL (1.8-7.0); NEUT % 64.4 % (50.0-75.0); RBC 4.15 Mil/uL (4.40-5.90); WHITE BLOOD COUNT 8.3 K/uL (4.8-10.8)
[2018-04-09 06:59] LABS: ALB/GLOB RATIO 0.9 (1.0-2.1); ALT/SGPT 41 U/L (21-72); AST/SGOT 41 U/L (17-59); BLOOD UREA NITROGEN 40 mg/dL (9-20); CALCIUM 8.7 mg/dl (8.6-10.4); GFR NON-AFRICAN AMERICAN > 60
[2018-04-09] MEDS: Multiple Vitamins Tab PO SCH (10:13)
[2018-04-09] MEDS: Lactobacillus Acidophilus 500 MU Cap PO SCH ×2 (10:13→19:08)
--- NOTE | 2018-04-09 14:49 | RAD ---
Date of service: 04/09/2018 HISTORY: pleural effusion/pneumonia COMPARISON: Comparison made with CT chest 04/04/2018. FINDINGS: LUNGS: Mild bibasilar atelectasis and/or infiltrate changes seen in the right mid to lower lung field with suspected mild left basilar atelectasis PLEURA: Previously noted small left-sided effusion may have improved. No pneumothorax apparent. CARDIOVASCULAR: No aortic atherosclerotic calcification present. Normal cardiac size. No pulmonary vascular congestion. OSSEOUS STRUCTURES: No significant abnormalities. VISUALIZED UPPER ABDOMEN: Normal. OTHER FINDINGS: None. IMPRESSION: Mild bibasilar atelectasis and/or infiltrate changes seen in the right mid to lower lung field with suspected mild left basilar atelectasis
--- NOTE | 2018-04-09 16:06 | CP.PCM.PN ---
<Max Johnson - Last Filed: 04/09/18 15:56> Subjective - Date & Time of Evaluation Date of Evaluation: 04/09/18 Time of Evaluation: 16:09 - Subjective Subjective: PGY-[address] Richey Patient seen and examined at bedside. No acute events overnight per nursing. Per my colleagues who have followed this patient in the past, patient appears to be at an improved level of mental status. Patient was about to try walking with PT this morning prior to exam. Will follow PT progress. Patient to have spongebath today and will receive his second weekly Permethrin treatment tomorrow. Patient denies chest pain, shortness of breath, headache, nausea, vomiting, fatigue, dizziness, dysuria. Objective - Vital Signs/Intake and Output Vital Signs (last 24 hours): Temp Pulse Resp BP Pulse Ox 98.5 F 103 H 20 156/99 H 99 04/09/18 07:26 04/09/18 07:26 04/09/18 07:26 04/09/18 07:26 04/09/18 07:26 Intake and Output: 04/09/18 04/09/18 06:59 18:59 Intake Total 900 Balance 900 - Medications Medications: Current Medications Albuterol/Ipratropium (Duoneb 3 Mg/0.5 Mg (3 Ml) Ud) 3 ml INH RQ6 PRN PRN Reason: Wheezing Amlodipine Besylate (Norvasc) 10 mg PO DAILY [facility] Last Admin: 04/09/18 10:13 Dose: 10 mg Aspirin (Ecotrin) 81 mg PO DAILY [facility] Last Admin: 04/09/18 10:13 Dose: 81 mg Folic Acid (Folic Acid) 1 mg PO DAILY [facility] Last Admin: 04/09/18 10:12 Dose: 1 mg Hydralazine HCl (Apresoline) 75 mg PO Q8H [facility] Last Admin: 04/09/18 10:13 Dose: 75 mg Ipratropium [place] (Atrovent) 0.5 mg IH RQ6 PRN PRN Reason: Shortness of Breath Isosorbide Mononitrate (Ismo) 20 mg PO DAILY [facility] Last Admin: 04/09/18 10:13 Dose: 20 mg Lactobacillus Acidophilus (Bacid Acidophilus) 1 cap PO BID [facility] Last Admin: 04/09/18 10:13 Dose: 1 cap Lisinopril (Zestril) 40 mg PO DAILY [facility] Last Admin: 04/09/18 10:13 Dose: 40 mg Lorazepam (Ativan) 1 mg IVP Q6H PRN PRN Reason: Symptoms of alcohol withdrawl Last Admin: 04/04/18 18:24 Dose: 1 mg Lorazepam (Ativan) 1 mg PO ONCE [facility]; Taper Stop: 04/09/18 19:59 Last Admin: 04/08/18 08:16 Dose: 1 mg Multivitamins (Hexavitamin) 1 tab PO DAILY [facility] Last Admin: 04/09/18 10:13 Dose: 1 tab Pantoprazole Sodium (Protonix Inj) 40 mg IVP DAILY [facility] Last Admin: 04/09/18 10:13 Dose: 40 mg Rosuvastatin Calcium (Crestor) 5 mg PO HS [facility] Last Admin: 04/08/18 22:00 Dose: 5 mg Thiamine HCl (Vitamin B1 Tab) 100 mg PO DAILY [facility] Last Admin: 04/09/18 10:12 Dose: 100 mg - Labs Labs: 04/09/18 06:39 04/09/18 06:39 PT 16.4 SECONDS (9.7-12.2) H 04/06/18 07:35 INR 1.5 04/06/18 07:35 APTT 28 SECONDS (21-34) 04/06/18 07:35 - Constitutional Appears: No Acute Distress, Unkempt - Head Exam Head Exam: NORMOCEPHALIC - Eye Exam Eye Exam: EOMI, Normal appearance - Respiratory Exam Respiratory Exam: Clear to Ausculation Bilateral, NORMAL BREATHING PATTERN. absent: Rales, Rhonchi, Wheezes - Cardiovascular Exam Cardiovascular Exam: RRR, +S1, +S2. absent: Murmur - GI/Abdominal Exam GI & Abdominal Exam: Soft, Normal Bowel Sounds. absent: Tenderness - Extremities Exam Additional comments: B/L pitting edema improving. Chronic venous stasis changes b/l with scabbed wounds. Hammer toe deformity of multiple feet b/l. Tender to palpation on the plantar surface of feet and dorsal part of foot. Several callous on plantar/ dorsal side of foot Poor overall foot hygiene, malodorous. No open sores or active bleeding noted. 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 Plan: History of chronic alcohol abuse: - Monitor for signs of withdrawal - Serum alcohol level: < 10 - Upon review of prior records, patient is known to present with altered mental status 2/2 alcohol intoxication - UDS: Negative - On Ativan taper, last dose is on 04/09 at 8PM - Ativan taper finished, continue Ativan 1mg IV Q6 PRN - Vitamin B12: 511m Folate levels: > 20 - Thiamine, folic acid, multivitamin - PT/OT came today to increase strength and balance. Will follow progress. - CT head (04/04): Chronic microvascular ischemic changes. 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 B/l basal ganglia and R thalamic lacunar infarcts. Focal encephalomalacia in the R duenas radiata. Hypertension, uncontrolled - Patient not compliant with previous discharge meds - Imdur 20mg PO daily - Lisinopril 10mg PO QD - Amlodipine 10mg PO QD - Hydralazine 50 mg TID - Secondary HTN workup: - Renal artery duplex: f/u - Plasma metanephrines: f/u - Aldosterone/Plasma renin activity: f/u Lower extremity swelling: - No evidence of cellulitis, lower extremities show blanchable erythema - Doxycycline 100 mg IV Q12H started on 04/04 - Ceftriaxone 1mg IV Q24H started on 04/04 - Lower extremities venous doppler: f/u - Blood culture (04/04): No growth to date - Received Clindamycin in the ED - Podiatry, Dr. Gomez consulted - Foot Xray (04/03): Degenerative changes of the forefoot. No acute fractures, subluxations. B/l hammertoe deformities are identified diffusely. Severe hallux valgus deformity noted. Large plantar calcaneal spurs b/l. Pneumonia: - Pulmonology, Dr. Lebron consulted - Will repeat AP/PA/Lateral chest xray once patient is more steady - Doxycycline 100 mg IV Q12H - Ceftriaxone 1mg IV Q24H - Atrovent INH Q6 PRN - Legionella, s. pneumonia, influenza: Negative - Mycoplasma Ig.19 (normal: < 0.9), Mycoplasma IgM: negative - CXR (04/04): Limited patchy atelectasis medial right base with remaining lung liu clear. Stable prominent cardiac silhouette. - CT chest (04/04): Small to medium size right-sided effusion and mild right basilar atelectasis. Small opacities are also present within the middle lobe possibly representing rounded atelectasis and/or infiltrates. There also appears to be some mild dependent atelectasis in the left lung base. Trace right-sided effusion. Minimal linear scarring changes left lingular region. Suspect mild underlying pulmonary venous congestive changes. There also appears to be a few scattered parenchymal calcifications likely representing granulomata within both lower lung liu as well. Cardiomegaly - CXR PA/Lateral 04/09 - Mild bibasilar atelectasis and/or infiltrate changes seen in the right mid to lower lung field with suspected mild left basilar atelectasis Scabies - Applied Permethrin 5% TOP on 04/04 - Contact precaution - Order placed for patient to have spongebath today - Will reapply Permethrin 12% TOP on 04/10 - Microbiology did not accept skin cultures since specimen collected incorrectly HX of CHF with reserved EF: - Cardiology, Dr. Dobbs consulted - No additional echo indicated on this admission as patient is not showing symptoms of heart failure - ProBNP: 29,300- increased from previous admissions - Previous Echo (08/2017): LV normal size, borderline LV hypertrophy, Systolic function borderline, mild septal hypokinesis, LVEF >50% COPD exacerbation, resolved: - Pulmonology, Dr. Lebron consulted - Duoneb Q6 PRN - Atrovent INH Q6 PRN - Patient is stable, O2 % saturation: 95-100% on room air JASWANT, resolved: - BUN/ Cr today: 45/1.3 - Nephrology, Dr. Lizarraga consulted - Avoid nephrotoxic agents (NSAIDS, phosphate enema) - Renal artery duplex: f/u - Renal ultrasound (04/05): non-obstructive left nephrolithiasis. Otherwise normal ultrasound Prophylaxis/diet: - DVT: Heparin 5000 units Q12H - GI: Protonix 40mg IVP daily - HHD Case discussed with Dr. Kaiden Johnson, PGY-1 <Dominique Richey V - Last Filed: 04/19/18 19:28> Objective - Vital Signs/Intake and Output Vital Signs (last 24 hours): Temp Pulse Resp BP Pulse Ox 97.9 F 70 20 122/69 98 04/19/18 16:00 04/19/18 16:00 04/19/18 16:00 04/19/18 16:00 04/19/18 16:00 - Medications Medications: Current Medications Amlodipine Besylate (Norvasc) 10 mg PO DAILY [facility] Last Admin: 04/19/18 09:43 Dose: Not Given Aspirin (Ecotrin) 81 mg PO DAILY [facility] Last Admin: 04/19/18 09:42 Dose: 81 mg Chlorthalidone (Hygroton) 25 mg PO DAILY [facility] Guaifenesin (Mucinex [place]) 600 mg PO BID [facility] Last Admin: 04/19/18 17:56 Dose: 600 mg Hydralazine HCl (Apresoline) 75 mg PO Q8 [facility] Last Admin: 04/19/18 14:15 Dose: Not Given Isosorbide Mononitrate (Ismo) 20 mg PO DAILY [facility] Last Admin: 04/19/18 09:42 Dose: 20 mg Lactic Acid (Lac-Hydrin 12% Lotion (225 G)) 0 gm EXT Q12H [facility] Last Admin: 04/19/18 12:16 Dose: 1 applic Lactobacillus Acidophilus (Bacid Acidophilus) 1 cap PO BID [facility] Last Admin: 04/19/18 17:56 Dose: 1 cap Lisinopril (Zestril) 40 mg PO DAILY [facility] Last Admin: 04/19/18 09:43 Dose: Not Given Pantoprazole Sodium (Protonix Ec Tab) 40 mg PO DAILY [facility] Last Admin: 04/19/18 09:42 Dose: 40 mg Rosuvastatin Calcium (Crestor) 5 mg PO HS [facility] Last Admin: 04/18/18 21:38 Dose: Not Given Vitamin A (Vitamin A & D Oint Ud Foilpak) 1 ea TOP BID [facility] Last Admin: 04/19/18 18:07 Dose: 1 ea Zinc Acetate/Diphenhydramine (Benadryl 1% Zinc Acetate -0.1%) 0 cre TOP BID PRN PRN Reason: Itching / Pruritus Last Admin: 04/10/18 17:07 Dose: 1 appl - Labs Labs: 04/19/18 07:32 04/19/18 07:32 PT 16.4 SECONDS (9.7-12.2) H 04/06/18 07:35 INR 1.5 04/06/18 07:35 APTT 28 SECONDS (21-34) 04/06/18 07:35 Attending/Attestation - Attestation I have personally seen and examined this patient.: Yes I have fully participated in the care of the patient.: Yes I have reviewed all pertinent clinical information, including history, physical exam and plan: Yes Notes (Text): This is late computer entry for 04/09/18. Patient seen, examined, and case discussed with medical record retrieval specialist. This is my first time seeing the patient. Patient is homeless, noted for vas cular insuffiency, poor hygiene has received one treatment with premerthin last week for scabies, remains on isolation, cardiology is following for heart failure, nephrology is following given he came in as acute kidney injury and further blood pressure optimization. Patient has received IV abx to cover for pneumonia while in hospital given prior chest xray. We will repeat chest xray today. Patient to complete Ativan taper today for alcohol withdrawal.
--- NOTE | 2018-04-09 23:40 | CP.PCM.PN ---
Subjective - Date & Time of Evaluation Date of Evaluation: 04/09/18 Time of Evaluation: 13:00 - Subjective Subjective: Patient tolerating diet; reports not being able to walk due to pain in feet; Objective - Vital Signs/Intake and Output Vital Signs (last 24 hours): Temp Pulse Resp BP Pulse Ox 97.9 F 90 20 126/75 98 04/09/18 16:39 04/09/18 16:39 04/09/18 16:39 04/09/18 16:39 04/09/18 16:39 Intake and Output: 04/09/18 04/10/18 18:59 06:59 Intake Total 900 450 Balance 900 450 - Medications Medications: Current Medications Albuterol/Ipratropium (Duoneb 3 Mg/0.5 Mg (3 Ml) Ud) 3 ml INH RQ6 PRN PRN Reason: Wheezing Amlodipine Besylate (Norvasc) 10 mg PO DAILY [facility] Last Admin: 04/09/18 10:13 Dose: 10 mg Aspirin (Ecotrin) 81 mg PO DAILY [facility] Last Admin: 04/09/18 10:13 Dose: 81 mg Folic Acid (Folic Acid) 1 mg PO DAILY [facility] Last Admin: 04/09/18 10:12 Dose: 1 mg Hydralazine HCl (Apresoline) 75 mg PO Q8H [facility] Last Admin: 04/09/18 18:09 Dose: 75 mg Ipratropium [place] (Atrovent) 0.5 mg IH RQ6 PRN PRN Reason: Shortness of Breath Isosorbide Mononitrate (Ismo) 20 mg PO DAILY [facility] Last Admin: 04/09/18 10:13 Dose: 20 mg Lactobacillus Acidophilus (Bacid Acidophilus) 1 cap PO BID [facility] Last Admin: 04/09/18 19:08 Dose: 1 cap Lisinopril (Zestril) 40 mg PO DAILY [facility] Last Admin: 04/09/18 10:13 Dose: 40 mg Lorazepam (Ativan) 1 mg IVP Q6H PRN PRN Reason: Symptoms of alcohol withdrawl Last Admin: 04/04/18 18:24 Dose: 1 mg Multivitamins (Hexavitamin) 1 tab PO DAILY [facility] Last Admin: 04/09/18 10:13 Dose: 1 tab Pantoprazole Sodium (Protonix Inj) 40 mg IVP DAILY [facility] Last Admin: 04/09/18 10:13 Dose: 40 mg Rosuvastatin Calcium (Crestor) 5 mg PO [facility] Last Admin: 04/09/18 21:22 Dose: 5 mg Thiamine HCl (Vitamin B1 Tab) 100 mg PO DAILY [facility] Last Admin: 04/09/18 10:12 Dose: 100 mg - Labs Labs: 04/09/18 06:39 04/09/18 06:39 PT 16.4 SECONDS (9.7-12.2) H 04/06/18 07:35 INR 1.5 04/06/18 07:35 APTT 28 SECONDS (21-34) 04/06/18 07:35 - Constitutional Appears: Non-toxic, No Acute Distress - Eye Exam Eye Exam: Normal appearance - Respiratory Exam Respiratory Exam: Clear to Ausculation Bilateral. absent: Respiratory Distress - Cardiovascular Exam Cardiovascular Exam: RRR, +S1, +S2 - GI/Abdominal Exam GI & Abdominal Exam: Soft. absent: Distended, Tenderness - Extremities Exam Additional comments: no leg edema; - Neurological Exam Neurological Exam: Alert, Awake - Psychiatric Exam Psychiatric exam: absent: Agitated - Skin Skin Exam: Warm. absent: Cyanosis Assessment and Plan (1) Acute kidney injury Assessment & Plan: Resolved though BUN still elevated (but decreasing); diuretics stopped; will con tinue to monitor; Status: Acute (2) Renovascular hypertension Assessment & Plan: BP still elevated; continue current meds, hydralazine increased; Status: Acute
--- NOTE | 2018-04-10 00:04 | CP.PCM.PN ---
Subjective - Date & Time of Evaluation Date of Evaluation: 04/10/18 Time of Evaluation: 07:30 - Subjective Subjective: Events reviewed. Objective - Vital Signs/Intake and Output Vital Signs (last 24 hours): Temp Pulse Resp BP Pulse Ox 97.9 F 90 20 126/75 98 04/09/18 16:39 04/09/18 16:39 04/09/18 16:39 04/09/18 16:39 04/09/18 16:39 Intake and Output: 04/09/18 04/10/18 18:59 06:59 Intake Total 900 450 Balance 900 450 - Medications Medications: Current Medications Albuterol/Ipratropium (Duoneb 3 Mg/0.5 Mg (3 Ml) Ud) 3 ml INH RQ6 PRN PRN Reason: Wheezing Amlodipine Besylate (Norvasc) 10 mg PO DAILY [facility] Last Admin: 04/09/18 10:13 Dose: 10 mg Aspirin (Ecotrin) 81 mg PO DAILY [facility] Last Admin: 04/09/18 10:13 Dose: 81 mg Folic Acid (Folic Acid) 1 mg PO DAILY [facility] Last Admin: 04/09/18 10:12 Dose: 1 mg Hydralazine HCl (Apresoline) 75 mg PO Q8H [facility] Last Admin: 04/09/18 18:09 Dose: 75 mg Ipratropium [place] (Atrovent) 0.5 mg IH RQ6 PRN PRN Reason: Shortness of Breath Isosorbide Mononitrate (Ismo) 20 mg PO DAILY [facility] Last Admin: 04/09/18 10:13 Dose: 20 mg Lactobacillus Acidophilus (Bacid Acidophilus) 1 cap PO BID [facility] Last Admin: 04/09/18 19:08 Dose: 1 cap Lisinopril (Zestril) 40 mg PO DAILY [facility] Last Admin: 04/09/18 10:13 Dose: 40 mg Lorazepam (Ativan) 1 mg IVP Q6H PRN PRN Reason: Symptoms of alcohol withdrawl Last Admin: 04/04/18 18:24 Dose: 1 mg Multivitamins (Hexavitamin) 1 tab PO DAILY [facility] Last Admin: 04/09/18 10:13 Dose: 1 tab Pantoprazole Sodium (Protonix Inj) 40 mg IVP DAILY [facility] Last Admin: 04/09/18 10:13 Dose: 40 mg Rosuvastatin Calcium (Crestor) 5 mg PO HS [facility] Last Admin: 04/09/18 21:22 Dose: 5 mg Thiamine HCl (Vitamin B1 Tab) 100 mg PO DAILY [facility] Last Admin: 04/09/18 10:12 Dose: 100 mg - Labs Labs: 04/09/18 06:39 04/09/18 06:39 PT 16.4 SECONDS (9.7-12.2) H 04/06/18 07:35 INR 1.5 04/06/18 07:35 APTT 28 SECONDS (21-34) 04/06/18 07:35 Assessment and Plan - Assessment and Plan (Free Text) Assessment: - Constitutional Appears: Cachectic, Chronically Ill - Respiratory Exam Respiratory Exam: Wheezes, NORMAL BREATHING PATTERN - Cardiovascular Exam Cardiovascular Exam: REGULAR RHYTHM, RRR, +S1, +S2. absent: JVD Additional comments: Dry gangrene, stasis dermatitis, - GI/Abdominal Exam GI & Abdominal Exam: Normal Bowel Sounds. absent: Organomegaly Assessment and Plan - Assessment and Plan (Free Text) Assessment: 58 y/o homeless male with prior CVA and HTN Echo: images directly seen by me from 08/2017: Normal LVEF, Mild LVH, grade 1 DD, normal PASP, no significant valvular abnormalities. No need to repeat echo as clinically does not appear to be in ADHF. CXR: patchy atelectasis CT head: microvascular changes, old L. occipital infarct Renal U/S: L. nephrolithiasis, incidental gall stones; no hydronephrosis L. foot xray: degenerative changes Patient has chronci diastolic dysfunction without overt volume overload. Wall motion and ejection fraction were normal Underlying Stage 2 CKD may be combination of diuretics and dehydration with i ntrinsic hypertensive medical renal disease. Plan: BP control with hydralazine, and norvasc 10 agree with Lisinopril : compliance will always be a challenge with this patient. Monitor for sepsis, bacteremia and continue wound care and supportive ABX for L. foor wound/infection Cont ASA/statin for probable underlying ASCVD. No additional testing or Rx planned at this time. Consider neuropathy work up if pain persists Please call back as needed
[2018-04-10 07:09] LABS: BASO # 0.1 K/uL (0.0-0.2); EOS # 0.7 K/uL (0.0-0.7); EOS % 7.3 % (0.0-4.0); HEMOGLOBIN 12.9 g/dL (12.0-18.0); LYMPH # 1.1 K/uL (1.0-4.3); LYMPH % 12.1 % (20.0-40.0); MEAN CORPUSCULAR HEMOGLOBIN 29.8 pg (27.0-31.0); MEAN CORPUSCULAR HGB CONC 32.7 g/dL (33.0-37.0); MEAN PLATELET VOLUME 9.5 fL (7.2-11.7); MONO # 1.4 K/uL (0.0-0.8); MONO % 15.2 % (0.0-10.0); NEUT # 5.8 K/uL (1.8-7.0); NEUT % 64.4 % (50.0-75.0); RBC 4.32 Mil/uL (4.40-5.90); RED CELL DISTRIBUTION WIDTH 16.7 % (11.5-14.5)
[2018-04-10 07:17] LABS: ALBUMIN 3.1 g/dL (3.5-5.0); ALT/SGPT 41 U/L (21-72); AST/SGOT 35 U/L (17-59); BLOOD UREA NITROGEN 40 mg/dL (9-20); CALCIUM 7.9 mg/dl (8.6-10.4); GFR NON-AFRICAN AMERICAN > 60
--- NOTE | 2018-04-10 08:32 | CP.PCM.PN ---
<Max Johnson - Last Filed: 04/10/18 15:11> Subjective - Date & Time of Evaluation Date of Evaluation: 04/10/18 Time of Evaluation: 08:22 - Subjective Subjective: PGY-[address] Richey Patient seen and examined at bedside. No acute events overnight per nursing. Patient had sponge bath yesterday, will get second permethrin treatment later today. Patient seen by PT yesterday, walked 20 feet with rolling walker. PT recommends LIZABETH for discharge, but we will need to find out from case management what are this patient's options, as he is currently homeless. Patient denies chest pain, shortness of breath, headache, nausea, vomiting, fatigue, dizziness, dysuria. Objective - Vital Signs/Intake and Output Vital Signs (last 24 hours): Temp Pulse Resp BP Pulse Ox 97.9 F 106 H 20 153/85 H 98 04/10/18 00:00 04/10/18 02:50 04/10/18 00:00 04/10/18 02:50 04/10/18 00:00 Intake and Output: 04/10/18 04/10/18 06:59 18:59 Intake Total 450 Output Total 575 Balance -125 - Medications Medications: Current Medications Albuterol/Ipratropium (Duoneb 3 Mg/0.5 Mg (3 Ml) Ud) 3 ml INH RQ6 PRN PRN Reason: Wheezing Amlodipine Besylate (Norvasc) 10 mg PO DAILY [facility] Last Admin: 04/09/18 10:13 Dose: 10 mg Aspirin (Ecotrin) 81 mg PO DAILY [facility] Last Admin: 04/09/18 10:13 Dose: 81 mg Folic Acid (Folic Acid) 1 mg PO DAILY [facility] Last Admin: 04/09/18 10:12 Dose: 1 mg Hydralazine HCl (Apresoline) 75 mg PO Q8H [facility] Last Admin: 04/10/18 02:52 Dose: 75 mg Ipratropium [place] (Atrovent) 0.5 mg IH RQ6 PRN PRN Reason: Shortness of Breath Isosorbide Mononitrate (Ismo) 20 mg PO DAILY [facility] Last Admin: 04/09/18 10:13 Dose: 20 mg Lactobacillus Acidophilus (Bacid Acidophilus) 1 cap PO BID [facility] Last Admin: 04/09/18 19:08 Dose: 1 cap Lisinopril (Zestril) 40 mg PO DAILY [facility] Last Admin: 04/09/18 10:13 Dose: 40 mg Lorazepam (Ativan) 1 mg IVP Q6H PRN PRN Reason: Symptoms of alcohol withdrawl Last Admin: 04/04/18 18:24 Dose: 1 mg Multivitamins (Hexavitamin) 1 tab PO DAILY [facility] Last Admin: 04/09/18 10:13 Dose: 1 tab Pantoprazole Sodium (Protonix Inj) 40 mg IVP DAILY [facility] Last Admin: 04/09/18 10:13 Dose: 40 mg Rosuvastatin Calcium (Crestor) 5 mg PO HS [facility] Last Admin: 04/09/18 21:22 Dose: 5 mg Thiamine HCl (Vitamin B1 Tab) 100 mg PO DAILY [facility] Last Admin: 04/09/18 10:12 Dose: 100 mg - Labs Labs: 04/10/18 06:50 04/10/18 06:50 PT 16.4 SECONDS (9.7-12.2) H 04/06/18 07:35 INR 1.5 04/06/18 07:35 APTT 28 SECONDS (21-34) 04/06/18 07:35 - Constitutional Appears: No Acute Distress, Unkempt - Head Exam Head Exam: NORMOCEPHALIC - Eye Exam Eye Exam: EOMI, Normal appearance - Respiratory Exam Respiratory Exam: Clear to Ausculation Bilateral, NORMAL BREATHING PATTERN. absent: Rales, Rhonchi, Wheezes - Cardiovascular Exam Cardiovascular Exam: RRR, +S1, +S2. absent: Murmur - GI/Abdominal Exam GI & Abdominal Exam: Soft, Normal Bowel Sounds. absent: Tenderness - Extremities Exam Additional comments: B/L pitting edema improving. Chronic venous stasis changes b/l with scabbed wounds. Hammer toe deformity of multiple feet b/l. Tender to palpation on the plantar surface of feet and dorsal part of foot. Several callous on plantar/ dorsal side of foot Poor overall foot hygiene, malodorous. No open sores or active bleeding noted. - Neurological Exam Neurological Exam: Alert, Awake, CN II-XII Intact, Oriented x3 Additional comments: Improved mental status - Psychiatric Exam Psychiatric exam: Normal Affect, Normal Mood - Skin Skin Exam: Dry, Intact, Normal Color, Warm Assessment and Plan - Assessment and Plan (Free Text) Assessment: Patient is a 58 year old male with PMHx of hypertension, CHF with preserved EF, and CVA (left LOG INSPECTOR infarct) presents to ED for foot pain and possible alcohol i ntoxication. Plan: History of chronic alcohol abuse: - Monitor for signs of withdrawal - Serum alcohol level: < 10 - Upon review of prior records, patient is known to present with altered mental status 2/2 alcohol intoxication - UDS: Negative - On Ativan taper, finished on 04/09 - Ativan taper finished 04/09, continue Ativan 1mg IV Q6 PRN - Vitamin B12: 511m Folate levels: > 20 - Thiamine, folic acid, multivitamin - PT/OT came yesterday 04/09 to increase strength and balance: Performs sit to stand with minimal assistance, walked 20 feet with rolling walker and minimal assistance. Recommend LIZABETH. Will f/u case management if patient can be discharged to [facility] that allows rolling walkers or if patient must ambulate independently. - CT head (04/04): Chronic microvascular ischemic changes. 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 B/l basal ganglia and R thalamic lacunar infarcts. Focal encephalomalacia in the R duenas radiata. Hypertension, uncontrolled - Patient not compliant with previous discharge meds - Imdur 20mg PO daily - Lisinopril 10mg PO QD - Amlodipine 10mg PO QD - Hydralazine increased to 50 mg TID - Secondary HTN workup: - Renal artery duplex: f/u - Plasma metanephrines: f/u - Aldosterone/Plasma renin activity: f/u Lower extremity swelling: - No evidence of cellulitis, lower extremities show blanchable erythema - Doxycycline 100 mg IV Q12H started on 04/04 - Ceftriaxone 1mg IV Q24H started on 04/04 - Lower extremities venous doppler: f/u - Blood culture (04/04): No growth x5 days - Podiatry, Dr. Gomez consulted - Foot Xray (04/03): Degenerative changes of the forefoot. No acute fractures, subluxations. B/l hammertoe deformities are identified diffusely. Severe hallux valgus deformity noted. Large plantar calcaneal spurs b/l. Pneumonia: - Pulmonology, Dr. Lebron consulted - Doxycycline 100 mg IV Q12H - Ceftriaxone 1mg IV Q24H - Atrovent INH Q6 PRN - Legionella, s. pneumonia, influenza: Negative - Mycoplasma Ig.19 (normal: < 0.9), Mycoplasma IgM: negative - CXR (04/04): Limited patchy atelectasis medial right base with remaining lung liu clear. Stable prominent cardiac silhouette. - CT chest (04/04): Small to medium size right-sided effusion and mild right basilar atelectasis. Small opacities are also present within the middle lobe possibly representing rounded atelectasis and/or infiltrates. There also appears to be some mild dependent atelectasis in the left lung base. Trace right-sided effusion. Minimal linear scarring changes left lingular region. Suspect mild underlying pulmonary venous congestive changes. There also appears to be a few scattered parenchymal calcifications likely representing granulomata within both lower lung liu as well. Cardiomegaly - CXR PA/Lateral 04/09 - Mild bibasilar atelectasis and/or infiltrate changes seen in the right mid to lower lung field with suspected mild left basilar atelectasis - --On [id number] comparison, appears relatively unchanged from previous film Scabies - Applied Permethrin 5% TOP on 04/04 - On contact precaution - Patient had sponge bath yesterday - Will reapply Permethrin 12% TOP today 04/10 - Microbiology did not accept skin cultures since specimen collected incorrectly - Benadryl cream BID prn for pruritis HX of CHF with reserved EF: - Cardiology, Dr. Dobbs consulted - Continue current regimen for BP control - hydralazine 75 PO q8, norvasc 10 PO daily, lisinopril 40 PO daily - No additional echo indicated on this admission as patient is not showing symptoms of heart failure - ProBNP: 29,300- increased from previous admissions - Previous Echo (08/2017): LV normal size, borderline LV hypertrophy, Systolic function borderline, mild septal hypokinesis, LVEF >50% COPD exacerbation, resolved: - Pulmonology, Dr. Lebron consulted - Duoneb Q6 PRN - Atrovent INH Q6 PRN - Patient is stable, O2 % saturation: 95-100% on room air JASWANT, resolved: - BUN/ Cr today 04/10: 40/1.1 - Nephrology, Dr. Lizarraga consulted - Avoid nephrotoxic agents (NSAIDS, phosphate enema) - Renal artery duplex: f/u - Renal ultrasound (04/05): non-obstructive left nephrolithiasis. Otherwise normal ultrasound Prophylaxis/diet: - DVT: Heparin 5000 units Q12H - GI: Protonix 40mg IVP daily - HHD Case discussed with Dr. Kaiden Johnson, PGY-1 <Dominique Richey V - Last Filed: 04/19/18 19:30> Objective - Vital Signs/Intake and Output Vital Signs (last 24 hours): Temp Pulse Resp BP Pulse Ox 97.9 F 70 20 122/69 98 04/19/18 16:00 04/19/18 16:00 04/19/18 16:00 04/19/18 16:00 04/19/18 16:00 - Medications Medications: Current Medications Amlodipine Besylate (Norvasc) 10 mg PO DAILY [facility] Last Admin: 04/19/18 09:43 Dose: Not Given Aspirin (Ecotrin) 81 mg PO DAILY [facility] Last Admin: 04/19/18 09:42 Dose: 81 mg Chlorthalidone (Hygroton) 25 mg PO DAILY [facility] Guaifenesin (Mucinex [place]) 600 mg PO BID [facility] Last Admin: 04/19/18 17:56 Dose: 600 mg Hydralazine HCl (Apresoline) 75 mg PO Q8 [facility] Last Admin: 04/19/18 14:15 Dose: Not Given Isosorbide Mononitrate (Ismo) 20 mg PO DAILY [facility] Last Admin: 04/19/18 09:42 Dose: 20 mg Lactic Acid (Lac-Hydrin 12% Lotion (225 G)) 0 gm EXT Q12H [facility] Last Admin: 04/19/18 12:16 Dose: 1 applic Lactobacillus Acidophilus (Bacid Acidophilus) 1 cap PO BID [facility] Last Admin: 04/19/18 17:56 Dose: 1 cap Lisinopril (Zestril) 40 mg PO DAILY [facility] Last Admin: 04/19/18 09:43 Dose: Not Given Pantoprazole Sodium (Protonix Ec Tab) 40 mg PO DAILY [facility] Last Admin: 04/19/18 09:42 Dose: 40 mg Rosuvastatin Calcium (Crestor) 5 mg PO HS [facility] Last Admin: 04/18/18 21:38 Dose: Not Given Vitamin A (Vitamin A & D Oint Ud Foilpak) 1 ea TOP BID [facility] Last Admin: 04/19/18 18:07 Dose: 1 ea Zinc Acetate/Diphenhydramine (Benadryl 1% Zinc Acetate -0.1%) 0 cre TOP BID PRN PRN Reason: Itching / Pruritus Last Admin: 04/10/18 17:07 Dose: 1 appl - Labs Labs: 04/19/18 07:32 04/19/18 07:32 PT 16.4 SECONDS (9.7-12.2) H 04/06/18 07:35 INR 1.5 04/06/18 07:35 APTT 28 SECONDS (21-34) 04/06/18 07:35 Attending/Attestation - Attestation I have personally seen and examined this patient.: Yes I have fully participated in the care of the patient.: Yes I have reviewed all pertinent clinical information, including history, physical exam and plan: Yes Notes (Text): This is late computer entry for 04/10/18. Patient seen, examined, and case discussed with internist medical doctor md. Agree with assessment and plan as written by the resident. Patient completed chest xray. Patient will continue to work with Physical therapy who had recommended for lizabeth. Patient is homeless, currently needs rolling walker. Patient is due for his second dose permetharin cream for treatment of scabies. Patient has completed Ativan taper as of yesterday for alcohol withdrawal.
[2018-04-10] MEDS: Multiple Vitamins Tab PO SCH (10:15)
[2018-04-10] MEDS: Lactobacillus Acidophilus 500 MU Cap PO SCH ×2 (10:16→17:35)
[2018-04-10] MEDS ORDERED: Diphenhydramine 1% Cream (1 oz) TOP PRN (14:32)
--- NOTE | 2018-04-10 15:49 | CARD ---
APPROVED REPORT Date of service: 04/03/2018 EKG Measurement Heart [id number] <Conclusion> Normal sinus rhythm Possible Left atrial enlargement Rightward axis Poor R wave progression Prolonged QT Abnormal ECG
--- NOTE | 2018-04-10 18:36 | VASCLAB ---
Date of service: 04/06/2018 PROCEDURE: Ultrasonography renal arterial evaluation HISTORY: r/o renal artery stenosis COMPARISON: Renal ultrasound from 04/04/2018 TECHNIQUE: Real-time ultrasonography evaluation of the renal arteries were performed. Comparison is made to the aorta. Report prepared by Rogelio Rodriguez, MELINA, RVT FINDINGS: AORTA: Patent. Peak systolic velocity 127 centimeters/second RIGHT RENAL ARTERY: Renal artery to aorta ratio: 4.6 * Proximal segment: Patent. Peak systolic velocity 585 centimeters/second * Mid segment: Patent. Peak systolic velocity 172 centimeters/second * Distal segment: Patent. Peak systolic velocity 72 centimeters/second Other findings: Right Kidney measures approximately 9.94 centimeters. LEFT RENAL ARTERY: Renal artery to aorta ratio: 1.2 * Proximal segment: Patent. Peak systolic velocity 156 centimeters/second * Mid segment: Patent. Peak systolic velocity 134 centimeters/second * Distal segment: Patent. Peak systolic velocity 82 centimeters/second Other findings: Left Kidney measures approximately 10.85 centimeters. IMPRESSION: RIGHT: Findings suggestive of hemodynamically significant stenosis of the right renal artery, proximal segment. LEFT: No definite hemodynamically significant stenosis involving the renal arteries as visualized.
--- NOTE | 2018-04-10 22:54 | CP.PCM.PN ---
Subjective - Date & Time of Evaluation Date of Evaluation: 04/10/18 Time of Evaluation: 19:00 - Subjective Subjective: Patient tolerating diet; not getting out of bed due to feet pain; Objective - Vital Signs/Intake and Output Vital Signs (last 24 hours): Temp Pulse Resp BP Pulse Ox 97.6 F 101 H 20 129/63 100 04/10/18 15:29 04/10/18 21:57 04/10/18 15:29 04/10/18 21:57 04/10/18 15:29 Intake and Output: 04/10/18 04/11/18 18:59 06:59 Intake Total 800 Balance 800 - Medications Medications: Current Medications Albuterol/Ipratropium (Duoneb 3 Mg/0.5 Mg (3 Ml) Ud) 3 ml INH RQ6 PRN PRN Reason: Wheezing Amlodipine Besylate (Norvasc) 10 mg PO DAILY [facility] Last Admin: 04/10/18 10:15 Dose: 10 mg Aspirin (Ecotrin) 81 mg PO DAILY [facility] Last Admin: 04/10/18 10:15 Dose: 81 mg Folic Acid (Folic Acid) 1 mg PO DAILY [facility] Last Admin: 04/10/18 10:15 Dose: 1 mg Hydralazine HCl (Apresoline) 100 mg PO Q8 [facility] Last Admin: 04/10/18 21:53 Dose: 100 mg Ipratropium [place] (Atrovent) 0.5 mg IH RQ6 PRN PRN Reason: Shortness of Breath Isosorbide Mononitrate (Ismo) 20 mg PO DAILY [facility] Last Admin: 04/10/18 10:15 Dose: 20 mg Lactobacillus Acidophilus (Bacid Acidophilus) 1 cap PO BID [facility] Last Admin: 04/10/18 17:35 Dose: 1 cap Lisinopril (Zestril) 40 mg PO DAILY [facility] Last Admin: 04/10/18 10:15 Dose: 40 mg Lorazepam (Ativan) 1 mg IVP Q6H PRN PRN Reason: Symptoms of alcohol withdrawl Last Admin: 04/04/18 18:24 Dose: 1 mg Multivitamins (Hexavitamin) 1 tab PO DAILY [facility] Last Admin: 04/10/18 10:15 Dose: 1 tab Pantoprazole Sodium (Protonix Inj) 40 mg IVP DAILY [facility] Last Admin: 04/10/18 10:15 Dose: 40 mg Rosuvastatin Calcium (Crestor) 5 mg PO HS [facility] Last Admin: 04/10/18 21:54 Dose: 5 mg Thiamine HCl (Vitamin B1 Tab) 100 mg PO DAILY [facility] Last Admin: 04/10/18 10:16 Dose: 100 mg Zinc Acetate/Diphenhydramine (Benadryl 1% Zinc Acetate -0.1%) 0 cre TOP BID PRN PRN Reason: Itching / Pruritus Last Admin: 04/10/18 17:07 Dose: 1 appl - Labs Labs: 04/10/18 06:50 04/10/18 06:50 PT 16.4 SECONDS (9.7-12.2) H 04/06/18 07:35 INR 1.5 04/06/18 07:35 APTT 28 SECONDS (21-34) 04/06/18 07:35 - Constitutional Appears: Non-toxic, No Acute Distress - Eye Exam Eye Exam: Normal appearance - Respiratory Exam Respiratory Exam: Clear to Ausculation Bilateral. absent: Respiratory Distress - Cardiovascular Exam Cardiovascular Exam: RRR, +S1, +S2 - GI/Abdominal Exam GI & Abdominal Exam: Soft. absent: Distended, Tenderness - Extremities Exam Additional comments: no leg edema; - Neurological Exam Neurological Exam: Alert, Awake - Psychiatric Exam Psychiatric exam: absent: Agitated - Skin Skin Exam: Warm. absent: Cyanosis Assessment and Plan (1) Acute kidney injury Status: Resolved (2) Renovascular hypertension Assessment & Plan: BP improving but still not at goal; increasing hydralazine to 100 mg q8h; continue lisinopril 40, amlodipine 10 and imdur 20 mg daily; unfortunately, med compliance on d/c seems unlikely; patient will benefit most from stable living condition and close f/u; Status: Acute
[2018-04-11] MEDS: Lactobacillus Acidophilus 500 MU Cap PO SCH ×2 (10:24→18:55)
[2018-04-11] MEDS: Multiple Vitamins Tab PO SCH (10:24)
--- NOTE | 2018-04-11 11:11 | CP.PCM.PN ---
<Max Johnson - Last Filed: 04/12/18 10:41> Subjective - Date & Time of Evaluation Date of Evaluation: 04/11/18 Time of Evaluation: 11:48 - Subjective Subjective: PGY-[address] Richey Patient seen and examined at bedside. No acute events overnight per nursing. Patient looks clean after sponge bath, much improved from prior hygiene. Patient to have permethrin treatment today. Denies nausea, vomiting, chest pain, headache, dizziness. Objective - Vital Signs/Intake and Output Vital Signs (last 24 hours): Temp Pulse Resp BP Pulse Ox 98 F 96 H 20 118/74 98 04/11/18 08:00 04/11/18 08:00 04/11/18 08:00 04/11/18 08:00 04/11/18 08:00 Intake and Output: 04/11/18 04/11/18 06:59 18:59 Intake Total 800 Output Total 600 Balance 200 - Medications Medications: Current Medications Albuterol/Ipratropium (Duoneb 3 Mg/0.5 Mg (3 Ml) Ud) 3 ml INH RQ6 PRN PRN Reason: Wheezing Amlodipine Besylate (Norvasc) 10 mg PO DAILY [facility] Last Admin: 04/10/18 10:15 Dose: 10 mg Aspirin (Ecotrin) 81 mg PO DAILY [facility] Last Admin: 04/10/18 10:15 Dose: 81 mg Folic Acid (Folic Acid) 1 mg PO DAILY [facility] Last Admin: 04/10/18 10:15 Dose: 1 mg Hydralazine HCl (Apresoline) 100 mg PO Q8 [facility] Last Admin: 04/11/18 05:08 Dose: 100 mg Ipratropium [place] (Atrovent) 0.5 mg IH RQ6 PRN PRN Reason: Shortness of Breath Isosorbide Mononitrate (Ismo) 20 mg PO DAILY [facility] Last Admin: 04/10/18 10:15 Dose: 20 mg Lactobacillus Acidophilus (Bacid Acidophilus) 1 cap PO BID [facility] Last Admin: 04/10/18 17:35 Dose: 1 cap Lisinopril (Zestril) 40 mg PO DAILY [facility] Last Admin: 04/10/18 10:15 Dose: 40 mg Lorazepam (Ativan) 1 mg IVP Q6H PRN PRN Reason: Symptoms of alcohol withdrawl Last Admin: 04/04/18 18:24 Dose: 1 mg Multivitamins (Hexavitamin) 1 tab PO DAILY [facility] Last Admin: 04/10/18 10:15 Dose: 1 tab Pantoprazole Sodium (Protonix Inj) 40 mg IVP DAILY [facility] Last Admin: 04/10/18 10:15 Dose: 40 mg Rosuvastatin Calcium (Crestor) 5 mg PO HS [facility] Last Admin: 04/10/18 21:54 Dose: 5 mg Thiamine HCl (Vitamin B1 Tab) 100 mg PO DAILY [facility] Last Admin: 04/10/18 10:16 Dose: 100 mg Zinc Acetate/Diphenhydramine (Benadryl 1% Zinc Acetate -0.1%) 0 cre TOP BID PRN PRN Reason: Itching / Pruritus Last Admin: 04/10/18 17:07 Dose: 1 appl - Labs Labs: 04/10/18 06:50 04/10/18 06:50 PT 16.4 SECONDS (9.7-12.2) H 04/06/18 07:35 INR 1.5 04/06/18 07:35 APTT 28 SECONDS (21-34) 04/06/18 07:35 - Constitutional Appears: Non-toxic, No Acute Distress - Head Exam Head Exam: ATRAUMATIC, NORMAL INSPECTION - Eye Exam Eye Exam: EOMI, Normal appearance - ENT Exam ENT Exam: Mucous Membranes Moist - Respiratory Exam Respiratory Exam: Clear to Ausculation Bilateral, NORMAL BREATHING PATTERN. absent: Rales, Rhonchi, Wheezes - Cardiovascular Exam Cardiovascular Exam: RRR, +S1, +S2. absent: Murmur - GI/Abdominal Exam GI & Abdominal Exam: Soft, Normal Bowel Sounds. absent: Tenderness - Extremities Exam Additional comments: B/L pitting edema improved. Chronic venous stasis changes b/l with scabbed wounds. Hammer toe deformity of multiple feet b/l. Several callous on plantar/ dorsal side of foot No open sores or active bleeding noted. - Neurological Exam Neurological Exam: Awake Additional comments: Patient appears possibly more confused compared to yesterday. Not responding appropriately to questions. - Psychiatric Exam Psychiatric exam: Flat Affect - Skin Skin Exam: Dry, Intact, Warm Assessment and Plan - Assessment and Plan (Free Text) Assessment: Patient is a 58 year old male with PMHx of hypertension, CHF with preserved EF, and CVA (left FLOOR FINISHER infarct) presents to ED for foot pain and possible alcohol intoxication. Plan: History of chronic alcohol abuse: - Monitor for signs of withdrawal - Serum alcohol level: < 10 - Upon review of prior records, patient is known to present with altered mental status 2/2 alcohol intoxication - UDS: Negative - Ativan taperfinished on 04/09 - --Continue Ativan 1mg IV Q6 PRN - Vitamin B12: 511m Folate levels: > 20 - Thiamine, folic acid, multivitamin - Rechecking ammonia level 04/11 - Per PT/OT note 04/09 to increase strength and balance: Performs sit to stand with minimal assistance, walked 20 feet with rolling walker and minimal assistance. Recommend LIND[facility]Y. Will f/u case management if patient can be discharged to custodial that allows rolling walkers or if patient must ambulate independently. --Spoke with PT - patient not seen by PT yesterday and needs to work towards independent ambulation. - --Per case management, patient will not be accepted to a homeless custodial without ability to ambulate independently without a walker - CT head (04/04): Chronic microvascular ischemic changes. 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 B/l basal ganglia and R thalamic lacunar infarcts. Focal encephalomalacia in the R duenas radiata. Hypertension, uncontrolled - Patient not compliant with previous discharge meds - Imdur 20mg PO daily - Lisinopril 10mg PO QD - Amlodipine 10mg PO QD - Hydralazine increased to 100 mg TID from 50 TID - Secondary HTN workup: - -- Renal artery duplex 04/05/2018: RIGHT: Findings suggestive of hemodynamically significant stenosis of the right renal artery, proximal segment. LEFT: No definite hemodynamically significant stenosis involving the renal arteries as visualized. - --Plasma metanephrines: f/u - --Aldosterone/Plasma renin activity: f/u Lower extremity swelling: - No evidence of cellulitis, lower extremities show blanchable erythema - Doxycycline 100 mg IV Q12H started on 04/04 - Ceftriaxone 1mg IV Q24H started on 04/04 - Lower extremities venous doppler: f/u - Blood culture (04/04): No growth x5 days - Podiatry, Dr. Gomez consulted - Foot Xray (04/03): Degenerative changes of the forefoot. No acute fractures, subluxations. B/l hammertoe deformities are identified diffusely. Severe hallux valgus deformity noted. Large plantar calcaneal spurs b/l. Pleural Effusion / Possible Pulmonary Infiltrates - Pulmonology, Dr. Lebron consulted - Doxycycline 100 mg IV Q12H, Ceftriaxone 1mg IV Q24H --> Course finished - Atrovent INH Q6 PRN - Legionella, s. pneumonia, influenza: Negative - Mycoplasma Ig.19 (normal: < 0.9), Mycoplasma IgM: negative - CXR (04/04): Limited patchy atelectasis medial right base with remaining lung liu clear. Stable prominent cardiac silhouette. - CT chest (04/04): Small to medium size right-sided effusion and mild right b asilar atelectasis. Small opacities are also present within the middle lobe possibly representing rounded atelectasis and/or infiltrates. There also appears to be some mild dependent atelectasis in the left lung base. Trace right-sided effusion. Minimal linear scarring changes left lingular region. Suspect mild underlying pulmonary venous congestive changes. There also appears to be a few scattered parenchymal calcifications likely representing granulomata within both lower lung liu as well. Cardiomegaly - CXR PA/Lateral 04/09 - Mild bibasilar atelectasis and/or infiltrate changes seen in the right mid to lower lung field with suspected mild left basilar atelectasis Scabies - Applied Permethrin 5% TOP on 04/04 - -- Permethrin 12% TOP did not get reapplied yesterday --> second dose will be applied today 04/11 - On contact precaution - --Consider d/c contact precaution - Microbiology did not accept skin cultures since specimen collected incorrectly - Benadryl cream BID prn for pruritis - Vitamin A and D TOP BID HX of CHF with reserved EF: - Cardiology, Dr. Dobbs consulted - Continue current regimen for BP control - hydralazine 75 PO q8, norvasc 10 PO daily, lisinopril 40 PO daily - No additional echo indicated on this admission as patient is not showing symptoms of heart failure - ProBNP: 29,300- increased from previous admissions - Previous Echo (08/2017): LV normal size, borderline LV hypertrophy, Systolic function borderline, mild septal hypokinesis, LVEF >50% COPD exacerbation, resolved: - Pulmonology, Dr. Lebron consulted - Duoneb Q6 PRN - Atrovent INH Q6 PRN - Patient is stable, O2 % saturation: 95-100% on room air JASWANT, resolved: - BUN/ Cr today 04/11: 40/1.1 - Nephrology, Dr. Lizarraga consulted - Avoid nephrotoxic agents (NSAIDS, phosphate enema) - Renal artery duplex - possible significant GLADIS - see above - Renal ultrasound (04/05): non-obstructive left nephrolithiasis. Otherwise normal ultrasound Prophylaxis/diet: - DVT: Heparin 5000 units Q12H - GI: Protonix 40mg IVP daily - HHD Case discussed with Dr. Kaiden Johnson, PGY-1 <Dominique Richey V - Last Filed: 04/19/18 19:33> Objective - Vital Signs/Intake and Output Vital Signs (last 24 hours): Temp Pulse Resp BP Pulse Ox 97.9 F 70 20 122/69 98 04/19/18 16:00 04/19/18 16:00 04/19/18 16:00 04/19/18 16:00 04/19/18 16:00 - Medications Medications: Current Medications Amlodipine Besylate (Norvasc) 10 mg PO DAILY [facility] Last Admin: 04/19/18 09:43 Dose: Not Given Aspirin (Ecotrin) 81 mg PO DAILY [facility] Last Admin: 04/19/18 09:42 Dose: 81 mg Chlorthalidone (Hygroton) 25 mg PO DAILY [facility] Guaifenesin (Mucinex La) 600 mg PO BID [facility] Last Admin: 04/19/18 17:56 Dose: 600 mg Hydralazine HCl (Apresoline) 75 mg PO Q8 [facility] Last Admin: 04/19/18 14:15 Dose: Not Given Isosorbide Mononitrate (Ismo) 20 mg PO DAILY [facility] Last Admin: 04/19/18 09:42 Dose: 20 mg Lactic Acid (Lac-Hydrin 12% Lotion (225 G)) 0 gm EXT Q12H [facility] Last Admin: 04/19/18 12:16 Dose: 1 applic Lactobacillus Acidophilus (Bacid Acidophilus) 1 cap PO BID [facility] Last Admin: 04/19/18 17:56 Dose: 1 cap Lisinopril (Zestril) 40 mg PO DAILY [facility] Last Admin: 04/19/18 09:43 Dose: Not Given Pantoprazole Sodium (Protonix Ec Tab) 40 mg PO DAILY [facility] Last Admin: 04/19/18 09:42 Dose: 40 mg Rosuvastatin Calcium (Crestor) 5 mg PO HS [facility] Last Admin: 04/18/18 21:38 Dose: Not Given Vitamin A (Vitamin A & D Oint Ud Foilpak) 1 ea TOP BID [facility] Last Admin: 04/19/18 18:07 Dose: 1 ea Zinc Acetate/Diphenhydramine (Benadryl 1% Zinc Acetate -0.1%) 0 cre TOP BID PRN PRN Reason: Itching / Pruritus Last Admin: 04/10/18 17:07 Dose: 1 appl - Labs Labs: 04/19/18 07:32 04/19/18 07:32 PT 16.4 SECONDS (9.7-12.2) H 04/06/18 07:35 INR 1.5 04/06/18 07:35 APTT 28 SECONDS (21-34) 04/06/18 07:35 Attending/Attestation - Attestation I have personally seen and examined this patient.: Yes I have fully participated in the care of the patient.: Yes I have reviewed all pertinent clinical information, including history, physical exam and plan: Yes Notes (Text): This is late computer entry for 04/11/18. Patient seen, examined, and case discussed with day-time resident. Patient has completed Ativan taper on Monday for alcohol withdrawal. Patient to receive second dose of Permtharian cream to complete scabies treatment. Patient has completed 7 days of IV abx to cover for both pneumonia and cellulitis. Patient to continue working with physical therapy. Patient is recommended for L[facility]SAY. Patient is homeless.
[2018-04-11] MEDS ORDERED: Permethrin 5% Cream(60 gm) TOP ONE (11:42)
[2018-04-11] MEDS: Vitamins A & D Oint UD Foilpak TOP SCH (18:55)
[2018-04-12] MEDS: Multiple Vitamins Tab PO SCH (10:23)
[2018-04-12] MEDS: Vitamins A & D Oint UD Foilpak TOP SCH ×2 (10:23→18:06)
[2018-04-12] MEDS: Pantoprazole 40 mg EC Tab PO SCH (10:23)
[2018-04-12] MEDS: Lactobacillus Acidophilus 500 MU Cap PO SCH ×2 (10:23→18:03)
--- NOTE | 2018-04-12 16:49 | CP.PCM.PN ---
<Max Johnson - Last Filed: 04/12/18 17:16> Subjective - Date & Time of Evaluation Date of Evaluation: 04/12/18 Time of Evaluation: 17:17 - Subjective Subjective: PGY-[address] Richey Patient seen and examined at bedside. No acute events overnight per nursing. Hygiene has improved. Permethrin treatment given yesterday, patient taken off contact precautions. Spoke with nurse, patient needs to be getting out of bed and into a chair to encourage movement under supervision. Denies nausea, vomiting, chest pain, headache, dizziness. Objective - Vital Signs/Intake and Output Vital Signs (last 24 hours): Temp Pulse Resp BP Pulse Ox 97.3 F L 86 20 121/76 96 04/12/18 07:20 04/12/18 07:20 04/12/18 07:20 04/12/18 07:20 04/12/18 07:20 Intake and Output: 04/12/18 04/12/18 06:59 18:59 Intake Total 800 320 Output Total 950 3 Balance -150 317 - Medications Medications: Current Medications Albuterol/Ipratropium (Duoneb 3 Mg/0.5 Mg (3 Ml) Ud) 3 ml INH RQ6 PRN PRN Reason: Wheezing Amlodipine Besylate (Norvasc) 10 mg PO DAILY [facility] Last Admin: 04/12/18 10:22 Dose: 10 mg Aspirin (Ecotrin) 81 mg PO DAILY [facility] Last Admin: 04/12/18 10:23 Dose: 81 mg Folic Acid (Folic Acid) 1 mg PO DAILY [facility] Last Admin: 04/12/18 10:23 Dose: 1 mg Hydralazine HCl (Apresoline) 100 mg PO Q8 [facility] Last Admin: 04/12/18 14:13 Dose: 100 mg Ipratropium [place] (Atrovent) 0.5 mg IH RQ6 PRN PRN Reason: Shortness of Breath Isosorbide Mononitrate (Ismo) 20 mg PO DAILY [facility] Last Admin: 04/12/18 10:22 Dose: 20 mg Lactobacillus Acidophilus (Bacid Acidophilus) 1 cap PO BID [facility] Last Admin: 04/12/18 10:23 Dose: 1 cap Lisinopril (Zestril) 40 mg PO DAILY [facility] Last Admin: 04/12/18 10:22 Dose: 40 mg Lorazepam (Ativan) 1 mg IVP Q6H PRN PRN Reason: Symptoms of alcohol withdrawl Last Admin: 04/04/18 18:24 Dose: 1 mg Multivitamins (Hexavitamin) 1 tab PO DAILY [facility] Last Admin: 04/12/18 10:23 Dose: 1 tab Pantoprazole Sodium (Protonix Ec Tab) 40 mg PO DAILY [facility] Last Admin: 04/12/18 10:23 Dose: 40 mg Rosuvastatin Calcium (Crestor) 5 mg PO HS [facility] Last Admin: 04/11/18 21:22 Dose: 5 mg Thiamine HCl (Vitamin B1 Tab) 100 mg PO DAILY [facility] Last Admin: 04/12/18 10:24 Dose: 100 mg Vitamin A (Vitamin A & D Oint Ud Foilpak) 1 ea TOP BID [facility] Last Admin: 04/12/18 10:23 Dose: 1 ea Zinc Acetate/Diphenhydramine (Benadryl 1% Zinc Acetate -0.1%) 0 cre TOP BID PRN PRN Reason: Itching / Pruritus Last Admin: 04/10/18 17:07 Dose: 1 appl - Labs Labs: 04/10/18 06:50 04/10/18 06:50 PT 16.4 SECONDS (9.7-12.2) H 04/06/18 07:35 INR 1.5 04/06/18 07:35 APTT 28 SECONDS (21-34) 04/06/18 07:35 - Constitutional Appears: No Acute Distress, Other (thin) - Head Exam Head Exam: ATRAUMATIC, NORMAL INSPECTION - Eye Exam Eye Exam: EOMI, Normal appearance - ENT Exam ENT Exam: Mucous Membranes Moist - Neck Exam Neck Exam: Full ROM, Normal Inspection - Respiratory Exam Respiratory Exam: Clear to Ausculation Bilateral, NORMAL BREATHING PATTERN. absent: Rales, Rhonchi, Wheezes - Cardiovascular Exam Cardiovascular Exam: REGULAR RHYTHM, +S1, +S2 - GI/Abdominal Exam GI & Abdominal Exam: Soft, Normal Bowel Sounds. 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 Plan: History of chronic alcohol abuse: - Monitor for signs of withdrawal - Serum alcohol level: < 10 - Upon review of prior records, patient is known to present with altered mental status 2/2 alcohol intoxication - UDS: Negative - Ativan taperfinished on 04/09 - --Continue Ativan 1mg IV Q6 PRN - Vitamin B12: 511m Folate levels: > 20 - Thiamine, folic acid, multivitamin - Rechecking ammonia level 04/11 - PT walked with patient yesterday. 15 feet with rolling walker. Patient needs continued PT to regain independent ambulation without assistance/RW. - --Per case management, patient will not be accepted to a homeless fdc without ability to ambulate independently without a walker - CT head (04/04): Chronic microvascular ischemic changes. 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 B/l basal ganglia and R thalamic lacunar infarcts. Focal encephalomalacia in the R duenas radiata. Hypertension, uncontrolled - Patient not compliant with previous discharge meds - Imdur 20mg PO daily - Lisinopril 10mg PO QD - Amlodipine 10mg PO QD - Hydralazine increased to 100 mg TID from 50 TID - Secondary HTN workup: - -- Renal artery duplex 04/05/2018: RIGHT: Findings suggestive of hemodynamically significant stenosis of the right renal artery, proximal segment. LEFT: No definite hemodynamically significant stenosis involving the renal arteries as visualized. - --Plasma metanephrines: f/u - --Aldosterone/Plasma renin activity: f/u Lower extremity swelling: - No evidence of cellulitis, lower extremities show blanchable erythema - Doxycycline 100 mg IV Q12H started on 04/04 - Ceftriaxone 1mg IV Q24H started on 04/04 - Lower extremities venous doppler: f/u - Blood culture (04/04): No growth x5 days - Podiatry, Dr. Gomez consulted - Foot Xray (04/03): Degenerative changes of the forefoot. No acute fractures, subluxations. B/l hammertoe deformities are identified diffusely. Severe hallux valgus deformity noted. Large plantar calcaneal spurs b/l. Pleural Effusion / Possible Pulmonary Infiltrates - Pulmonology, Dr. Lebron consulted - Doxycycline 100 mg IV Q12H, Ceftriaxone 1mg IV Q24H --> Course finished - Atrovent INH Q6 PRN - Legionella, s. pneumonia, influenza: Negative - Mycoplasma Ig.19 (normal: < 0.9), Mycoplasma IgM: negative - CXR (04/04): Limited patchy atelectasis medial right base with remaining lung liu clear. Stable prominent cardiac silhouette. - CT chest (04/04): Small to medium size right-sided effusion and mild right basilar atelectasis. Small opacities are also present within the middle lobe possibly representing rounded atelectasis and/or infiltrates. There also appears to be some mild dependent atelectasis in the left lung base. Trace right-sided effusion. Minimal linear scarring changes left lingular region. Suspect mild underlying pulmonary venous congestive changes. There also appears to be a few scattered parenchymal calcifications likely representing granulomata within both lower lung liu as well. Cardiomegaly. - CXR PA/Lateral 04/09 - Mild bibasilar atelectasis and/or infiltrate changes seen in the right mid to lower lung field with suspected mild left basilar atelectasis Scabies - Applied Permethrin 5% TOP on 04/04 - -- Permethrin 12% TOP second dose applied 04/11 - Contact precaution d/c'd - Benadryl cream BID prn for pruritis - Vitamin A and D TOP BID HX of CHF with reserved EF: - Cardiology, Dr. Dobbs consulted - Continue current regimen for BP control - hydralazine 75 PO q8, norvasc 10 PO daily, lisinopril 40 PO daily - No additional echo indicated on this admission as patient is not showing symptoms of heart failure - ProBNP: 29,300- increased from previous admissions - Previous Echo (08/2017): LV normal size, borderline LV hypertrophy, Systolic function borderline, mild septal hypokinesis, LVEF >50% COPD exacerbation, resolved: - Pulmonology, Dr. Lebron consulted - Duoneb Q6 PRN - Atrovent INH Q6 PRN - Patient is stable, O2 % saturation: 95-100% on room air JASWANT, resolved: - BUN/ Cr today 04/11: 40/1.1 - Nephrology, Dr. Lizarraga consulted - Avoid nephrotoxic agents (NSAIDS, phosphate enema) - Renal artery duplex - possible significant GLDAIS - see above - Renal ultrasound (04/05): non-obstructive left nephrolithiasis. Otherwise normal ultrasound Prophylaxis/diet: - DVT: Heparin 5000 units Q12H - GI: Protonix 40mg IVP daily - HHD Case discussed with Dr. Kaiden Johnson, PGY-1 <Dominique Richey V - Last Filed: 04/19/18 19:35> Objective - Vital Signs/Intake and Output Vital Signs (last 24 hours): Temp Pulse Resp BP Pulse Ox 97.9 F 70 20 122/69 98 04/19/18 16:00 04/19/18 16:00 04/19/18 16:00 04/19/18 16:00 04/19/18 16:00 - Medications Medications: Current Medications Amlodipine Besylate (Norvasc) 10 mg PO DAILY [facility] Last Admin: 04/19/18 09:43 Dose: Not Given Aspirin (Ecotrin) 81 mg PO DAILY [facility] Last Admin: 04/19/18 09:42 Dose: 81 mg Chlorthalidone (Hygroton) 25 mg PO DAILY [facility] Guaifenesin (Mucinex La) 600 mg PO BID [facility] Last Admin: 04/19/18 17:56 Dose: 600 mg Hydralazine HCl (Apresoline) 75 mg PO Q8 [facility] Last Admin: 04/19/18 14:15 Dose: Not Given Isosorbide Mononitrate (Ismo) 20 mg PO DAILY [facility] Last Admin: 04/19/18 09:42 Dose: 20 mg Lactic Acid (Lac-Hydrin 12% Lotion (225 G)) 0 gm EXT Q12H [facility] Last Admin: 04/19/18 12:16 Dose: 1 applic Lactobacillus Acidophilus (Bacid Acidophilus) 1 cap PO BID [facility] Last Admin: 04/19/18 17:56 Dose: 1 cap Lisinopril (Zestril) 40 mg PO DAILY [facility] Last Admin: 04/19/18 09:43 Dose: Not Given Pantoprazole Sodium (Protonix Ec Tab) 40 mg PO DAILY [facility] Last Admin: 04/19/18 09:42 Dose: 40 mg Rosuvastatin Calcium (Crestor) 5 mg PO HS [facility] Last Admin: 04/18/18 21:38 Dose: Not Given Vitamin A (Vitamin A & D Oint Ud Foilpak) 1 ea TOP BID [facility] Last Admin: 04/19/18 18:07 Dose: 1 ea Zinc Acetate/Diphenhydramine (Benadryl 1% Zinc Acetate -0.1%) 0 cre TOP BID PRN PRN Reason: Itching / Pruritus Last Admin: 04/10/18 17:07 Dose: 1 appl - Labs Labs: 04/19/18 07:32 04/19/18 07:32 PT 16.4 SECONDS (9.7-12.2) H 04/06/18 07:35 INR 1.5 04/06/18 07:35 APTT 28 SECONDS (21-34) 04/06/18 07:35 Attending/Attestation - Attestation I have personally seen and examined this patient.: Yes I have fully participated in the care of the patient.: Yes I have reviewed all pertinent clinical information, including history, physical exam and plan: Yes Notes (Text): This is late computer entry for 04/12/18. Patient seen, examined, and case discussed with biomedical engineering supervisor. Patient completed second dose or permetharin creame yesterday for scabies. Patient taken off contact isolation. Patient encouraged to get OOB to chair instead of remaining in bed, I have spoken with his nurse, Jaimie to make sure patient remains active. Patient to continue to work with physical therapy until we receive physical therapy clearance for discharge to homeless fdc.
[2018-04-13 07:58] LABS: BASO # 0.1 K/uL (0.0-0.2); BASO % 0.7 % (0.0-2.0); EOS # 0.2 K/uL (0.0-0.7); EOS % 2.4 % (0.0-4.0); HEMOGLOBIN 12.5 g/dL (12.0-18.0); LYMPH # 1.1 K/uL (1.0-4.3); LYMPH % 12.7 % (20.0-40.0); MEAN CELL VOLUME 90.4 fL (80.0-94.0); MEAN CORPUSCULAR HEMOGLOBIN 30.1 pg (27.0-31.0); MEAN CORPUSCULAR HGB CONC 33.3 g/dL (33.0-37.0); MEAN PLATELET VOLUME 9.9 fL (7.2-11.7); MONO # 1.5 K/uL (0.0-0.8); MONO % 17.4 % (0.0-10.0); NEUT # 5.9 K/uL (1.8-7.0); NEUT % 66.8 % (50.0-75.0); RBC 4.16 Mil/uL (4.40-5.90); RED CELL DISTRIBUTION WIDTH 16.6 % (11.5-14.5); WHITE BLOOD COUNT 8.8 K/uL (4.8-10.8)
[2018-04-13 08:17] LABS: ALB/GLOB RATIO 0.9 (1.0-2.1); ALBUMIN 3.1 g/dL (3.5-5.0); ALT/SGPT 34 U/L (21-72); AST/SGOT 32 U/L (17-59); BLOOD UREA NITROGEN 45 mg/dL (9-20); CALCIUM 8.7 mg/dl (8.6-10.4); GFR NON-AFRICAN AMERICAN > 60
[2018-04-13] MEDS: Multiple Vitamins Tab PO SCH (09:54)
[2018-04-13] MEDS: Pantoprazole 40 mg EC Tab PO SCH (09:54)
[2018-04-13] MEDS: Lactobacillus Acidophilus 500 MU Cap PO SCH ×2 (09:55→17:16)
[2018-04-13] MEDS: Vitamins A & D Oint UD Foilpak TOP SCH ×2 (09:55→17:15)
--- NOTE | 2018-04-13 16:22 | CP.PCM.PN ---
<Max Johnson - Last Filed: 04/13/18 16:19> Subjective - Date & Time of Evaluation Date of Evaluation: 04/13/18 Time of Evaluation: 16:19 - Subjective Subjective: PGY-[address] Richey Patient seen and examined at bedside. No acute events overnight per nursing. Hygiene has improved. Patient off contact precautions. Spoke with nurse, patient needs to be getting out of bed and into a chair to encourage movement under supervision. He did get out of bed to chair yesterday. Goal is for patient to regain strength through physical rehabilitation. Denies nausea, vomiting, chest pain, headache, dizziness. Objective - Vital Signs/Intake and Output Vital Signs (last 24 hours): Temp Pulse Resp BP Pulse Ox 97.6 F 84 20 131/71 97 04/13/18 08:00 04/13/18 08:00 04/13/18 08:00 04/13/18 08:00 04/13/18 08:00 Intake and Output: 04/13/18 04/13/18 06:59 18:59 Intake Total 300 Balance 300 - Medications Medications: Current Medications Albuterol/Ipratropium (Duoneb 3 Mg/0.5 Mg (3 Ml) Ud) 3 ml INH RQ6 PRN PRN Reason: Wheezing Amlodipine Besylate (Norvasc) 10 mg PO DAILY [facility] Last Admin: 04/13/18 09:54 Dose: Not Given Aspirin (Ecotrin) 81 mg PO DAILY [facility] Last Admin: 04/13/18 09:54 Dose: 81 mg Folic Acid (Folic Acid) 1 mg PO DAILY [facility] Last Admin: 04/13/18 09:54 Dose: 1 mg Hydralazine HCl (Apresoline) 100 mg PO Q8 [facility] Last Admin: 04/13/18 13:28 Dose: 100 mg Ipratropium [place] (Atrovent) 0.5 mg IH RQ6 PRN PRN Reason: Shortness of Breath Isosorbide Mononitrate (Ismo) 20 mg PO DAILY [facility] Last Admin: 04/13/18 09:55 Dose: 20 mg Lactobacillus Acidophilus (Bacid Acidophilus) 1 cap PO BID [facility] Last Admin: 04/13/18 09:55 Dose: 1 cap Lisinopril (Zestril) 40 mg PO DAILY [facility] Last Admin: 11/09/18 09:54 Dose: 40 mg Lorazepam (Ativan) 1 mg IVP Q6H PRN PRN Reason: Symptoms of alcohol withdrawl Last Admin: 04/04/18 18:24 Dose: 1 mg Multivitamins (Hexavitamin) 1 tab PO DAILY [facility] Last Admin: 04/13/18 09:54 Dose: 1 tab Pantoprazole Sodium (Protonix Ec Tab) 40 mg PO DAILY [facility] Last Admin: 04/13/18 09:54 Dose: 40 mg Rosuvastatin Calcium (Crestor) 5 mg PO HS [facility] Last Admin: 04/12/18 22:33 Dose: 5 mg Thiamine HCl (Vitamin B1 Tab) 100 mg PO DAILY [facility] Last Admin: 04/13/18 09:54 Dose: 100 mg Vitamin A (Vitamin A & D Oint Ud Foilpak) 1 ea TOP BID [facility] Last Admin: 04/13/18 09:55 Dose: 1 ea Zinc Acetate/Diphenhydramine (Benadryl 1% Zinc Acetate -0.1%) 0 cre TOP BID PRN PRN Reason: Itching / Pruritus Last Admin: 04/10/18 17:07 Dose: 1 appl - Labs Labs: 04/13/18 07:36 04/13/18 07:36 PT 16.4 SECONDS (9.7-12.2) H 04/06/18 07:35 INR 1.5 04/06/18 07:35 APTT 28 SECONDS (21-34) 04/06/18 07:35 - Constitutional Appears: Non-toxic, No Acute Distress, Other (thin) - Head Exam Head Exam: ATRAUMATIC, NORMOCEPHALIC - Eye Exam Eye Exam: EOMI, Normal appearance - ENT Exam ENT Exam: Mucous Membranes Moist, Normal Exam - Respiratory Exam Respiratory Exam: Clear to Ausculation Bilateral, NORMAL BREATHING PATTERN. absent: Rales, Rhonchi, Wheezes - Cardiovascular Exam Cardiovascular Exam: REGULAR RHYTHM, +S1, +S2. absent: Murmur - GI/Abdominal Exam GI & Abdominal Exam: Soft, Normal Bowel Sounds. absent: Tenderness - Extremities Exam Additional comments: Edema resolved. Chronic venous stasis changes b/l with scabbed wounds. Hammer toe deformity of multiple feet b/l. Several callous on plantar/ dorsal side of foot No open sores or active bleeding noted. - Neurological Exam Neurological Exam: Awake Additional comments: Confused, oriented only to self. - Psychiatric Exam Psychiatric exam: Flat Affect, Normal Mood - Skin Skin Exam: Dry, Intact, Warm Assessment and Plan - Assessment and Plan (Free Text) Assessment: Patient is a 58 year old male with PMHx of hypertension, CHF with preserved EF, and CVA (left FRONT DESK CLERK infarct) presents to ED for foot pain and possible alcohol intoxication. Plan: History of chronic alcohol abuse: - Monitor for signs of withdrawal - Serum alcohol level: < 10 - Upon review of prior records, patient is known to present with altered mental status 2/2 alcohol intoxication - UDS: Negative - Ativan taperfinished on 04/09 - --Continue Ativan 1mg IV Q6 PRN for withdrawal sx - Vitamin B12: 511m Folate levels: > 20 - Thiamine, folic acid, multivitamin - Rechecking ammonia level 04/11 - PT walked with patient 04/11 - 15 feet with rolling walker. Patient needs continued PT to regain independent ambulation without assistance/RW. - --Per case management, patient will not [facility] to a homeless [facility] without ability to ambulate independently without a walker - CT head (04/04): Chronic microvascular ischemic changes. 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 B/l basal ganglia and R thalamic lacunar infarcts. Focal encephalomalacia in the R duenas radiata. Hypertension, uncontrolled - Patient not compliant with previous discharge meds - Imdur 20mg PO daily - Lisinopril 10mg PO QD - Amlodipine 10mg PO QD - Hydralazine increased to 100 mg TID from 50 TID - Secondary HTN workup: - -- Renal artery duplex 04/05/2018: RIGHT: Findings suggestive of hemodynamically significant stenosis of the right renal artery, proximal segment. LEFT: No definite hemodynamically significant stenosis involving the renal arteries as visualized. - --Plasma metanephrines: f/u - --Aldosterone/Plasma renin activity: f/u Lower extremity swelling: - No evidence of cellulitis, lower extremities show blanchable erythema - Doxycycline 100 mg IV Q12H started on 04/04 - Ceftriaxone 1mg IV Q24H started on 04/04 - Lower extremities venous doppler: f/u - Blood culture (04/04): No growth x5 days - Podiatry, Dr. Gomez consulted - Foot Xray (04/03): Degenerative changes of the forefoot. No acute fractures, subluxations. B/l hammertoe deformities are identified diffusely. Severe hallux valgus deformity noted. Large plantar calcaneal spurs b/l. Pleural Effusion / Possible Pulmonary Infiltrates - Pulmonology, Dr. Lebron consulted - Doxycycline 100 mg IV Q12H, Ceftriaxone 1mg IV Q24H --> Course finished - Atrovent INH Q6 PRN - Legionella, s. pneumonia, influenza: Negative - Mycoplasma Ig.19 (normal: < 0.9), Mycoplasma IgM: negative - CXR (04/04): Limited patchy atelectasis medial right base with remaining lung liu clear. Stable prominent cardiac silhouette. - CT chest (04/04): Small to medium size right-sided effusion and mild right basilar atelectasis. Small opacities are also present within the middle lobe possibly representing rounded atelectasis and/or infiltrates. There also appears to be some mild dependent atelectasis in the left lung base. Trace right-sided effusion. Minimal linear scarring changes left lingular region. Suspect mild underlying pulmonary venous congestive changes. There also appears to be a few scattered parenchymal calcifications likely representing granulomata within both lower lung liu as well. Cardiomegaly. - CXR PA/Lateral 04/09 - Mild bibasilar atelectasis and/or infiltrate changes seen in the right mid to lower lung field with suspected mild left basilar atelectasis Scabies - Applied Permethrin 5% TOP on 04/04 - -- Permethrin 12% TOP second dose applied 04/11 - - course FINISHED - Contact precaution d/c'd - Benadryl cream BID prn for pruritis - Vitamin A and D TOP BID HX of CHF with reserved EF: - Cardiology, Dr. Dobbs consulted - Continue current regimen for BP control - hydralazine 75 PO q8, norvasc 10 PO daily, lisinopril 40 PO daily - No additional echo indicated on this admission as patient is not showing symptoms of heart failure - ProBNP: 29,300- increased from previous admissions - Previous Echo (08/2017): LV normal size, borderline LV hypertrophy, Systolic function borderline, mild septal hypokinesis, LVEF >50% COPD exacerbation, resolved: - Pulmonology, Dr. Lebron consulted - Duoneb Q6 PRN - Atrovent INH Q6 PRN - Patient is stable, O2 % saturation: 95-100% on room air JASWANT, resolved: - BUN/ Cr today 04/13: 40/0.8 - Nephrology, Dr. Lizarraga consulted - Avoid nephrotoxic agents (NSAIDS, phosphate enema) - Renal artery duplex - possible significant GLADIS - see above - Renal ultrasound (04/05): non-obstructive left nephrolithiasis. Otherwise normal ultrasound Prophylaxis/diet: - DVT: Heparin 5000 units Q12H - GI: Protonix 40mg IVP daily - HHD - No labs to be drawn over the weekend Case discussed with Dr. Kaiden Johnson, PGY-1 <Dominique Richey V - Last Filed: 04/19/18 19:36> Objective - Vital Signs/Intake and Output Vital Signs (last 24 hours): Temp Pulse Resp BP Pulse Ox 97.9 F 70 20 122/69 98 04/19/18 16:00 04/19/18 16:00 04/19/18 16:00 04/19/18 16:00 04/19/18 16:00 - Medications Medications: Current Medications Amlodipine Besylate (Norvasc) 10 mg PO DAILY [facility] Last Admin: 04/19/18 09:43 Dose: Not Given Aspirin (Ecotrin) 81 mg PO DAILY [facility] Last Admin: 04/19/18 09:42 Dose: 81 mg Chlorthalidone ([place]) 25 mg PO DAILY [facility] Guaifenesin (Mucinex [place]) 600 mg PO BID [facility] Last Admin: 04/19/18 17:56 Dose: 600 mg Hydralazine HCl (Apresoline) 75 mg PO Q8 [facility] Last Admin: 04/19/18 14:15 Dose: Not Given Isosorbide Mononitrate (Ismo) 20 mg PO DAILY [facility] Last Admin: 04/19/18 09:42 Dose: 20 mg Lactic Acid (Lac-Hydrin 12% Lotion (225 G)) 0 gm EXT Q12H [facility] Last Admin: 04/19/18 12:16 Dose: 1 applic Lactobacillus Acidophilus (Bacid Acidophilus) 1 cap PO BID [facility] Last Admin: 04/19/18 17:56 Dose: 1 cap Lisinopril (Zestril) 40 mg PO DAILY [facility] Last Admin: 04/19/18 09:43 Dose: Not Given Pantoprazole Sodium (Protonix Ec Tab) 40 mg PO DAILY [facility] Last Admin: 04/19/18 09:42 Dose: 40 mg Rosuvastatin Calcium (Crestor) 5 mg PO HS [facility] Last Admin: 04/18/18 21:38 Dose: Not Given Vitamin A (Vitamin A & D Oint Ud Foilpak) 1 ea TOP BID [facility] Last Admin: 04/19/18 18:07 Dose: 1 ea Zinc Acetate/Diphenhydramine (Benadryl 1% Zinc Acetate -0.1%) 0 cre TOP BID PRN PRN Reason: Itching / Pruritus Last Admin: 04/10/18 17:07 Dose: 1 appl - Labs Labs: 04/19/18 07:32 04/19/18 07:32 PT 16.4 SECONDS (9.7-12.2) H 04/06/18 07:35 INR 1.5 04/06/18 07:35 APTT 28 SECONDS (21-34) 04/06/18 07:35 Attending/Attestation - Attestation I have personally seen and examined this patient.: Yes I have fully participated in the care of the patient.: Yes I have reviewed all pertinent clinical information, including history, physical exam and plan: Yes Notes (Text): This is late computer entry for 04.13.18. Patient seen, examined,and case discussed with territory sales manager medical. Agree with assessment and plan as written by the resident. patient to continue to work with physical therapy until we receive clearance from PT for discharge to homeless [facility].
--- NOTE | 2018-04-14 05:12 | CP.PCM.PN ---
<Mariaa Cristina - Last Filed: 04/14/18 05:09> Subjective - Date & Time of Evaluation Date of Evaluation: 04/14/18 Time of Evaluation: 06:25 - Subjective Subjective: PGY-1 Medicine Progress Note for Dr. Richey Patient was seen and examined today at bedside in no acute distress. Nurse reports no overnight events. Patient has no new complaints. Is still having difficulty OOB to chair. Supervised physical activity encouraged. Denies chest pain, shortness of breath, n/v/c/d, headache, dizziness. Objective - Vital Signs/Intake and Output Vital Signs (last 24 hours): Temp Pulse Resp BP Pulse Ox 98.1 F 90 20 115/60 97 04/13/18 23:37 04/13/18 23:37 04/13/18 23:37 04/13/18 23:37 04/13/18 23:37 - Medications Medications: Current Medications Albuterol/Ipratropium (Duoneb 3 Mg/0.5 Mg (3 Ml) Ud) 3 ml INH RQ6 PRN PRN Reason: Wheezing Amlodipine Besylate (Norvasc) 10 mg PO DAILY [facility] Last Admin: 04/13/18 09:54 Dose: Not Given Aspirin (Ecotrin) 81 mg PO DAILY [facility] Last Admin: 04/13/18 09:54 Dose: 81 mg Folic Acid (Folic Acid) 1 mg PO DAILY [facility] Last Admin: 04/13/18 09:54 Dose: 1 mg Hydralazine HCl (Apresoline) 100 mg PO Q8 [facility] Last Admin: 04/13/18 21:06 Dose: 100 mg Ipratropium [place] (Atrovent) 0.5 mg IH RQ6 PRN PRN Reason: Shortness of Breath Isosorbide Mononitrate (Ismo) 20 mg PO DAILY [facility] Last Admin: 04/13/18 09:55 Dose: 20 mg Lactobacillus Acidophilus (Bacid Acidophilus) 1 cap PO BID [facility] Last Admin: 04/13/18 17:16 Dose: 1 cap Lisinopril (Zestril) 40 mg PO DAILY [facility] Last Admin: 04/13/18 09:54 Dose: 40 mg Lorazepam (Ativan) 1 mg IVP Q6H PRN PRN Reason: Symptoms of alcohol withdrawl Last Admin: 04/04/18 18:24 Dose: 1 mg Multivitamins (Hexavitamin) 1 tab PO DAILY [facility] Last Admin: 04/13/18 09:54 Dose: 1 tab Pantoprazole Sodium (Protonix Ec Tab) 40 mg PO DAILY [facility] Last Admin: 04/13/18 09:54 Dose: 40 mg Rosuvastatin Calcium (Crestor) 5 mg PO HS [facility] Last Admin: 04/13/18 21:06 Dose: 5 mg Thiamine HCl (Vitamin B1 Tab) 100 mg PO DAILY [facility] Last Admin: 04/13/18 09:54 Dose: 100 mg Vitamin A (Vitamin A & D Oint Ud Foilpak) 1 ea TOP BID [facility] Last Admin: 04/13/18 17:15 Dose: 1 ea Zinc Acetate/Diphenhydramine (Benadryl 1% Zinc Acetate -0.1%) 0 cre TOP BID PRN PRN Reason: Itching / Pruritus Last Admin: 04/10/18 17:07 Dose: 1 appl - Labs Labs: 04/13/18 07:36 04/13/18 07:36 PT 16.4 SECONDS (9.7-12.2) H 04/06/18 07:35 INR 1.5 04/06/18 07:35 APTT 28 SECONDS (21-34) 04/06/18 07:35 - Constitutional Appears: Non-toxic, No Acute Distress - Head Exam Head Exam: ATRAUMATIC, NORMOCEPHALIC - Eye Exam Eye Exam: EOMI - ENT Exam ENT Exam: Mucous Membranes Moist - Respiratory Exam Respiratory Exam: Clear to Ausculation Bilateral, NORMAL BREATHING PATTERN. absent: Rales, Rhonchi, Wheezes - Cardiovascular Exam Cardiovascular Exam: REGULAR RHYTHM, +S1, +S2 - GI/Abdominal Exam GI & Abdominal Exam: Soft, Normal Bowel Sounds. absent: Tenderness - Extremities Exam Additional comments: Edema resolved. Chronic venous stasis changes b/l with scabbed wounds. Hammer toe deformity of multiple feet b/l. Several callous on plantar/ dorsal side of foot No open sores or active bleeding noted. - Neurological Exam Neurological Exam: Awake. absent: Oriented x3 Additional comments: oriented only to self - Psychiatric Exam Psychiatric exam: Flat Affect, Normal Mood - Skin Skin Exam: Dry, Normal Color, Warm Assessment and Plan - Assessment and Plan (Free Text) Assessment: Patient is a 58 year old male with PMHx of hypertension, CHF with preserved EF, and CVA (left BOX BRANDER infarct) presents to ED for foot pain and possible alcohol intoxication. Plan: History of chronic alcohol abuse: - Monitor for signs of withdrawal - Serum alcohol level: < 10 - Upon review of prior records, patient is known to present with altered mental status 2/2 alcohol intoxication - UDS: Negative - Ativan taperfinished on 04/09 - --Continue Ativan 1mg IV Q6 PRN for withdrawal sx - Vitamin B12: 511m Folate levels: > 20 - Thiamine, folic acid, multivitamin - Rechecking ammonia level 04/11 - PT walked with patient 04/11 - 15 feet with rolling walker. Patient needs continued PT to regain independent ambulation without assistance/RW. - --Per case management, patient will not be accepted to a homeless assisted without ability to ambulate independently without a walker - CT head (04/04): Chronic microvascular ischemic changes. 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 B/l basal ganglia and R thalamic lacunar infarcts. Focal encephalomalacia in the R duenas radiata. Hypertension, uncontrolled - Patient not compliant with previous discharge meds - Imdur 20mg PO daily - Lisinopril 10mg PO QD - Amlodipine 10mg PO QD - Hydralazine increased to 100 mg TID from 50 TID - Secondary HTN workup: - -- Renal artery duplex 04/05/2018: RIGHT: Findings suggestive of hemodynamically significant stenosis of the right renal artery, proximal segment. LEFT: No definite hemodynamically significant stenosis involving the renal arteries as visualized. - --Plasma metanephrines: f/u - --Aldosterone/Plasma renin activity: f/u Lower extremity swelling: - No evidence of cellulitis, lower extremities show blanchable erythema - Doxycycline 100 mg IV Q12H started on 04/04 - Ceftriaxone 1mg IV Q24H started on 04/04 - Lower extremities venous doppler: f/u - Blood culture (04/04): No growth x5 days - Podiatry, Dr. Gomez consulted - Foot Xray (04/03): Degenerative changes of the forefoot. No acute fractures, subluxations. B/l hammertoe deformities are identified diffusely. Severe hallux valgus deformity noted. Large plantar calcaneal spurs b/l. Pleural Effusion / Possible Pulmonary Infiltrates - Pulmonology, Dr. Lebron consulted - Doxycycline 100 mg IV Q12H, Ceftriaxone 1mg IV Q24H --> Course finished - Atrovent INH Q6 PRN - Legionella, s. pneumonia, influenza: Negative - Mycoplasma Ig.19 (normal: < 0.9), Mycoplasma IgM: negative - CXR (04/04): Limited patchy atelectasis medial right base with remaining lung liu clear. Stable prominent cardiac silhouette. - CT chest (04/04): Small to medium size right-sided effusion and mild right basilar atelectasis. Small opacities are also present within the middle lobe possibly representing rounded atelectasis and/or infiltrates. There also appears to be some mild dependent atelectasis in the left lung base. Trace right-sided effusion. Minimal linear scarring changes left lingular region. Suspect mild underlying pulmonary venous congestive changes. There also appears to be a few scattered parenchymal calcifications likely representing granulomata within both lower lung liu as well. Cardiomegaly. - CXR PA/Lateral 04/09 - Mild bibasilar atelectasis and/or infiltrate changes seen in the right mid to lower lung field with suspected mild left basilar atelectasis Scabies - Applied Permethrin 5% TOP on 04/04 - -- Permethrin 12% TOP second dose applied 04/11 - - course FINISHED - Contact precaution d/c'd - Benadryl cream BID prn for pruritis - Vitamin A and D TOP BID HX of CHF with reserved EF: - Cardiology, Dr. Dobbs consulted - Continue current regimen for BP control - hydralazine 75 PO q8, norvasc 10 PO daily, lisinopril 40 PO daily - No additional echo indicated on this admission as patient is not showing symptoms of heart failure - ProBNP: 29,300- increased from previous admissions - Previous Echo (08/2017): LV normal size, borderline LV hypertrophy, Systolic function borderline, mild septal hypokinesis, LVEF >50% COPD exacerbation, resolved: - Pulmonology, Dr. Lebron consulted - Duoneb Q6 PRN - Atrovent INH Q6 PRN - Patient is stable, O2 % saturation: 95-100% on room air JASWANT, resolved: - BUN/ Cr today 11/9: 40/0.8 - Nephrology, Dr. Lizarraga consulted - Avoid nephrotoxic agents (NSAIDS, phosphate enema) - Renal artery duplex - possible significant GLADIS - see above - Renal ultrasound (04/05): non-obstructive left nephrolithiasis. Otherwise normal ultrasound Prophylaxis/diet: - DVT: Heparin 5000 units Q12H - GI: Protonix 40mg IVP daily - HHD - No labs to be drawn over the weekend Mariaa Cristina PGY-1 <Dominique Richey V - Last Filed: 04/19/18 19:48> Objective - Vital Signs/Intake and Output Vital Signs (last 24 hours): Temp Pulse Resp BP Pulse Ox 97.9 F 70 20 122/69 98 04/19/18 16:00 04/19/18 16:00 04/19/18 16:00 04/19/18 16:00 04/19/18 16:00 - Medications Medications: Current Medications Amlodipine Besylate (Norvasc) 10 mg PO DAILY [facility] Last Admin: 04/19/18 09:43 Dose: Not Given Aspirin (Ecotrin) 81 mg PO DAILY [facility] Last Admin: 04/19/18 09:42 Dose: 81 mg Chlorthalidone (Hygroton) 25 mg PO DAILY [facility] Guaifenesin (Mucinex La) 600 mg PO BID [facility] Last Admin: 04/19/18 17:56 Dose: 600 mg Hydralazine HCl (Apresoline) 75 mg PO Q8 [facility] Last Admin: 04/19/18 14:15 Dose: Not Given Isosorbide Mononitrate (Ismo) 20 mg PO DAILY [facility] Last Admin: 04/19/18 09:42 Dose: 20 mg Lactic Acid (Lac-Hydrin 12% Lotion (225 G)) 0 gm EXT Q12H [facility] Last Admin: 04/19/18 12:16 Dose: 1 applic Lactobacillus Acidophilus (Bacid Acidophilus) 1 cap PO BID [facility] Last Admin: 04/19/18 17:56 Dose: 1 cap Lisinopril (Zestril) 40 mg PO DAILY [facility] Last Admin: 04/19/18 09:43 Dose: Not Given Pantoprazole Sodium (Protonix Ec Tab) 40 mg PO DAILY [facility] Last Admin: 04/19/18 09:42 Dose: 40 mg Rosuvastatin Calcium (Crestor) 5 mg PO HS [facility] Last Admin: 04/18/18 21:38 Dose: Not Given Vitamin A (Vitamin A & D Oint Ud Foilpak) 1 ea TOP BID [facility] Last Admin: 04/19/18 18:07 Dose: 1 ea Zinc Acetate/Diphenhydramine (Benadryl 1% Zinc Acetate -0.1%) 0 cre TOP BID PRN PRN Reason: Itching / Pruritus Last Admin: 04/10/18 17:07 Dose: 1 appl - Labs Labs: 04/19/18 07:32 04/19/18 07:32 PT 16.4 SECONDS (9.7-12.2) H 04/06/18 07:35 INR 1.5 04/06/18 07:35 APTT 28 SECONDS (21-34) 04/06/18 07:35 Attending/Attestation - Attestation I have personally seen and examined this patient.: Yes I have fully participated in the care of the patient.: Yes I have reviewed all pertinent clinical information, including history, physical exam and plan: Yes Notes (Text): This is late computer entry for 04/14/18. patient seen, examined and case discussed with medical technologist blood bank. Agree with assessment and plan as written by the resident. Patient to continue to work with physical therapy, until we have receive clear ance since patient is homeless and assisted have restriction regarding rolling walkers. Assessment/Plan 1) History of chronic alcohol abuse: * Patient has completed ativan taper. * Patient is not in the window for withdrawal * Serum alcohol level: < 10 * Upon review of prior records, patient is known to present with altered mental status 2/2 alcohol intoxication * UDS: Negative * Vitamin B12: 511m Folate levels: > 20 * c/w Thiamine, folic acid, multivitamin * Ammonia is low 2) Deconditioning * PT walked with patient 11/7 - 15 feet with rolling walker. Patient needs continued PT to regain independent ambulation without assistance/RW. * Per case management, patient will not be accepted to a homeless assisted without ability to ambulate independently without a walker * CT head (04/04): Chronic microvascular ischemic changes. 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 B/l basal ganglia and R thalamic lacunar infarcts. Focal encephalomalacia in the R duenas radiata. * C/w physical therapy given recommendation for [facility]. Patient does not have insurance to make him eligible for [facility]. 3) Hypertension * Patient has not prior history of noncompliance. * Imdur 20mg PO daily * Lisinopril 10mg PO QDaily * Amlodipine 10mg PO QDaily * Hydralazine increased to 100 mg TID from 50 TID * Secondary HTN workup: * Renal artery duplex 04/05/2018: RIGHT: Findings suggestive of hemodynamically significant stenosis of the right renal artery, proximal segment. LEFT: No definite hemodynamically significant stenosis involving the renal arteries as visualized. * Plasma metanephrines: f/u * Aldosterone/Plasma renin activity: f/u 4) Lower extremity swelling Resolved) * No evidence of cellulitis, lower extremities show blanchable erythema * Completed IV abx to cover for cellulitis and pneumonia * Patient's case consulted with podiatry during hospitalization. * Foot Xray (04/03): Degenerative changes of the forefoot. No acute fractures, subluxations. B/l hammertoe deformities are identified diffusely. Severe hallux valgus deformity noted. Large plantar calcaneal spurs b/l. 5) Atelectasis; possible pneumonia * Patient has completed IV abx to cover for pnuemonia * :egionella, s. pneumonia, influenza: Negative, Mycoplasma Ig.19 (normal: < 0.9), Mycoplasma IgM: negative * CXR (04/04): Limited patchy atelectasis medial right base with remaining lung liu clear. Stable prominent cardiac silhouette. * CT chest (04/04): Small to medium size right-sided effusion and mild right basilar atelectasis. Small opacities are also present within the middle lobe possibly representing rounded atelectasis and/or infiltrates. There also appears to be some mild dependent atelectasis in the left lung base. Trace right-sided effusion. Minimal linear scarring changes left lingular region. Suspect mild underlying pulmonary venous congestive changes. There also appears to be a few scattered parenchymal calcifications likely representing granulomata within both lower lung liu as well. Cardiomegaly. * CXR PA/Lateral 04/09 - Mild bibasilar atelectasis and/or infiltrate changes seen in the right mid to lower lung field with suspected mild left basilar atelectais 6) Scabies (resolved) * Completed 2 doses of Permethrin during hospitalization * Contact precaution d/c' * Benadryl cream BID prn for itchiness; patient advised to stop scratching. Patient has poor nail hygiene * Vitamin A and D TOP BID for dry skin 7) HX of CHF with reserved EF: * Cardiology, Dr. Dobbs consulted * Continue current regimen for BP control - hydralazine 100 PO q8, norvasc 10 PO daily, lisinopril 40 PO daily, norvasc 10mg PO daily * No additional echo indicated on this admission as patient is not showing symptoms of heart failure * ProBNP: 29,300- increased from previous admissions * Previous Echo (08/2017): LV normal size, borderline LV hypertrophy, Systolic function borderline, mild septal hypokinesis, LVEF >50% * No beta jessica given side effect of bronchospasm * No stain given mild transaminitis 8) COPD exacerbation, resolved: * Pulmonology, Dr. Lebron consulted * Atrovent INH Q6 PRN * Patient is stable, O2 % saturation: 95-100% on room air 9) JASWANT, resolved: * BUN/ Cr today 04/13: 40/0.8 * Nephrology, Dr. Lizarraga consulted * Avoid nephrotoxic agents (NSAIDS, phosphate enema) * Renal artery duplex - possible significant GLADIS - see above * Renal ultrasound (04/05): non-obstructive left nephrolithiasis. Otherwise normal ultrasound 10) Prophylaxis/diet: * DVT PPX: Heparin 5000 units Q12H * GI: Protonix 40mg IVP daily * HHD * No labs to be drawn over the weekend
[2018-04-14] MEDS: Lactobacillus Acidophilus 500 MU Cap PO SCH ×2 (10:18→17:00)
[2018-04-14] MEDS: Vitamins A & D Oint UD Foilpak TOP SCH ×2 (10:18→17:00)
[2018-04-14] MEDS: Pantoprazole 40 mg EC Tab PO SCH (10:19)
[2018-04-14] MEDS: Multiple Vitamins Tab PO SCH (10:19)
[2018-04-14] MEDS: guaiFENesin 600 mg ER Tab PO SCH (17:00)
--- NOTE | 2018-04-15 01:29 | CP.PCM.PN ---
<Mariaa Cristina Y - Last Filed: 04/15/18 01:26> Subjective - Date & Time of Evaluation Date of Evaluation: 04/15/18 Time of Evaluation: 06:35 - Subjective Subjective: PGY-1 Medicine Progress Note for Dr. Galan Patient was seen and examined today at bedside in no acute distress. Nurse reports no overnight events. Patient has no new complaints. Is still having difficulty OOB to chair. Supervised physical activity encouraged. Denies chest pain, shortness of breath, n/v/c/d, headache, dizziness. Objective - Vital Signs/Intake and Output Vital Signs (last 24 hours): Temp Pulse Resp BP Pulse Ox 98.4 F 89 20 138/77 97 04/14/18 23:48 04/14/18 23:48 04/14/18 23:48 04/14/18 23:48 04/14/18 23:48 - Medications Medications: Current Medications Albuterol/Ipratropium (Duoneb 3 Mg/0.5 Mg (3 Ml) Ud) 3 ml INH RQ6 PRN PRN Reason: Wheezing Amlodipine Besylate (Norvasc) 10 mg PO DAILY [facility] Last Admin: 04/14/18 13:10 Dose: 10 mg Aspirin (Ecotrin) 81 mg PO DAILY [facility] Last Admin: 04/14/18 10:19 Dose: 81 mg Folic Acid (Folic Acid) 1 mg PO DAILY [facility] Last Admin: 04/14/18 10:18 Dose: 1 mg Guaifenesin (Mucinex La) 600 mg PO BID [facility] Last Admin: 04/14/18 17:00 Dose: 600 mg Hydralazine HCl (Apresoline) 100 mg PO Q8 [facility] Last Admin: 04/14/18 21:39 Dose: 100 mg Ipratropium Eaton (Atrovent) 0.5 mg IH RQ6 PRN PRN Reason: Shortness of Breath Isosorbide Mononitrate (Ismo) 20 mg PO DAILY [facility] Last Admin: 04/14/18 10:19 Dose: 20 mg Lactobacillus Acidophilus (Bacid Acidophilus) 1 cap PO BID [facility] Last Admin: 04/14/18 17:00 Dose: 1 cap Lisinopril (Zestril) 40 mg PO DAILY [facility] Last Admin: 04/14/18 10:19 Dose: 40 mg Lorazepam (Ativan) 1 mg IVP Q6H PRN PRN Reason: Symptoms of alcohol withdrawl Last Admin: 04/04/18 18:24 Dose: 1 mg Multivitamins (Hexavitamin) 1 tab PO DAILY [facility] Last Admin: 04/14/18 10:19 Dose: 1 tab Pantoprazole Sodium (Protonix Ec Tab) 40 mg PO DAILY [facility] Last Admin: 04/14/18 10:19 Dose: 40 mg Rosuvastatin Calcium (Crestor) 5 mg PO HS [facility] Last Admin: 04/14/18 21:41 Dose: 5 mg Thiamine HCl (Vitamin B1 Tab) 100 mg PO DAILY [facility] Last Admin: 04/14/18 10:19 Dose: 100 mg Vitamin A (Vitamin A & D Oint Ud Foilpak) 1 ea TOP BID [facility] Last Admin: 04/14/18 17:00 Dose: 1 ea Zinc Acetate/Diphenhydramine (Benadryl 1% Zinc Acetate -0.1%) 0 cre TOP BID PRN PRN Reason: Itching / Pruritus Last Admin: 04/10/18 17:07 Dose: 1 appl - Labs Labs: 04/13/18 07:36 04/13/18 07:36 PT 16.4 SECONDS (9.7-12.2) H 04/06/18 07:35 INR 1.5 04/06/18 07:35 APTT 28 SECONDS (21-34) 04/06/18 07:35 - Constitutional Appears: Non-toxic, No Acute Distress - Head Exam Head Exam: ATRAUMATIC, NORMOCEPHALIC - Eye Exam Eye Exam: EOMI - ENT Exam ENT Exam: Mucous Membranes Moist - Respiratory Exam Respiratory Exam: Clear to Ausculation Bilateral, NORMAL BREATHING PATTERN. absent: Rales, Rhonchi, Wheezes - Cardiovascular Exam Cardiovascular Exam: REGULAR RHYTHM, +S1, +S2 - GI/Abdominal Exam GI & Abdominal Exam: Soft, Normal Bowel Sounds. absent: Tenderness - Extremities Exam Additional comments: Chronic venous stasis changes b/l with scabbed wounds. Hammer toe deformity of multiple feet b/l. Several callous on plantar/ dorsal side of foot No open sores or active bleeding noted. - Neurological Exam Neurological Exam: Awake Additional comments: oriented only to self - Psychiatric Exam Psychiatric exam: Flat Affect, Normal Mood - Skin Skin Exam: Dry, Normal Color, Warm Assessment and Plan - Assessment and Plan (Free Text) Assessment: Patient is a 58 year old male with PMHx of hypertension, CHF with preserved EF, and CVA (left SESSIONS CLERK infarct) presents to ED for foot pain and possible alcohol intoxication. Plan: History of chronic alcohol abuse: - Monitor for signs of withdrawal - Serum alcohol level: < 10 - Upon review of prior records, patient is known to present with altered mental status 2/2 alcohol intoxication - UDS: Negative - Ativan taperfinished on 04/09 - --Continue Ativan 1mg IV Q6 PRN for withdrawal sx - Vitamin B12: 511m Folate levels: > 20 - Thiamine, folic acid, multivitamin - Rechecking ammonia level 04/11 - PT walked with patient 04/11 - 15 feet with rolling walker. Patient needs continued PT to regain independent ambulation without assistance/RW. - --Per case management, patient will not be accepted to a [place] [facility] care facility without ability to ambulate independently without a walker - CT head (04/04): Chronic microvascular ischemic changes. 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 B/l basal ganglia and R thalamic lacunar infarcts. Focal encephalomalacia in the R duenas radiata. Hypertension, uncontrolled - Patient not compliant with previous discharge meds - Imdur 20mg PO daily - Lisinopril 10mg PO QD - Amlodipine 10mg PO QD - Hydralazine increased to 100 mg TID from 50 TID - Secondary HTN workup: - -- Renal artery duplex 04/05/2018: RIGHT: Findings suggestive of hemodynamica lly significant stenosis of the right renal artery, proximal segment. LEFT: No definite hemodynamically significant stenosis involving the renal arteries as visualized. - --Plasma metanephrines: f/u - --Aldosterone/Plasma renin activity: f/u Lower extremity swelling: - No evidence of cellulitis, lower extremities show blanchable erythema - Doxycycline 100 mg IV Q12H started on 04/04 - Ceftriaxone 1mg IV Q24H started on 04/04 - Lower extremities venous doppler: f/u - Blood culture (04/04): No growth x5 days - Podiatry, Dr. Gomez consulted - Foot Xray (04/03): Degenerative changes of the forefoot. No acute fractures, subluxations. B/l hammertoe deformities are identified diffusely. Severe hallux valgus deformity noted. Large plantar calcaneal spurs b/l. Pleural Effusion / Possible Pulmonary Infiltrates - Pulmonology, Dr. Lebron consulted - Doxycycline 100 mg IV Q12H, Ceftriaxone 1mg IV Q24H --> Course finished - Atrovent INH Q6 PRN - Legionella, s. pneumonia, influenza: Negative - Mycoplasma Ig.19 (normal: < 0.9), Mycoplasma IgM: negative - CXR (04/04): Limited patchy atelectasis medial right base with remaining lung liu clear. Stable prominent cardiac silhouette. - CT chest (04/04): Small to medium size right-sided effusion and mild right basilar atelectasis. Small opacities are also present within the middle lobe possibly representing rounded atelectasis and/or infiltrates. There also appears to be some mild dependent atelectasis in the left lung base. Trace right-sided effusion. Minimal linear scarring changes left lingular region. Suspect mild underlying pulmonary venous congestive changes. There also appears to be a few scattered parenchymal calcifications likely representing granulomata within both lower lung liu as well. Cardiomegaly. - CXR PA/Lateral 04/09 - Mild bibasilar atelectasis and/or infiltrate changes seen in the right mid to lower lung field with suspected mild left basilar atelectasis Scabies - Applied Permethrin 5% TOP on 04/04 - -- Permethrin 12% TOP second dose applied 04/11 - - course FINISHED - Contact precaution d/c'd - Benadryl cream BID prn for pruritis - Vitamin A and D TOP BID HX of CHF with reserved EF: - Cardiology, Dr. Dobbs consulted - Continue current regimen for BP control - hydralazine 75 PO q8, norvasc 10 PO daily, lisinopril 40 PO daily - No additional echo indicated on this admission as patient is not showing symptoms of heart failure - ProBNP: 29,300- increased from previous admissions - Previous Echo (08/2017): LV normal size, borderline LV hypertrophy, Systolic function borderline, mild septal hypokinesis, LVEF >50% COPD exacerbation, resolved: - Pulmonology, Dr. Lebron consulted - Duoneb Q6 PRN - Atrovent INH Q6 PRN - Patient is stable, O2 % saturation: 95-100% on room air JASWANT, resolved: - BUN/ Cr today 04/13: 40/0.8 - Nephrology, Dr. Lizarraga consulted - Avoid nephrotoxic agents (NSAIDS, phosphate enema) - Renal artery duplex - possible significant GLADIS - see above - Renal ultrasound (04/05): non-obstructive left nephrolithiasis. Otherwise normal ultrasound Prophylaxis/diet: - DVT: Heparin 5000 units Q12H - GI: Protonix 40mg IVP daily - HHD - No labs to be drawn over the weekend <Guicho Galan - Last Filed: 04/15/18 15:51> Objective - Vital Signs/Intake and Output Vital Signs (last 24 hours): Temp Pulse Resp BP Pulse Ox 98.2 F 95 H 20 130/68 99 04/15/18 08:00 04/15/18 08:00 04/15/18 08:00 04/15/18 08:00 04/15/18 08:00 Intake and Output: 04/15/18 04/15/18 06:59 18:59 Intake Total 480 Balance 480 - Medications Medications: Current Medications Amlodipine Besylate (Norvasc) 10 mg PO DAILY [facility] Last Admin: 04/15/18 10:31 Dose: 10 mg Aspirin (Ecotrin) 81 mg PO DAILY [facility] Last Admin: 04/15/18 10:31 Dose: 81 mg Folic Acid (Folic Acid) 1 mg PO DAILY [facility] Last Admin: 04/15/18 10:31 Dose: 1 mg Guaifenesin (Mucinex La) 600 mg PO BID [facility] Last Admin: 04/15/18 10:31 Dose: 600 mg Hydralazine HCl (Apresoline) 100 mg PO Q8 [facility] Last Admin: 04/15/18 14:19 Dose: 100 mg Ipratropium Eaton (Atrovent) 0.5 mg IH RQ6 PRN PRN Reason: Shortness of Breath Isosorbide Mononitrate (Ismo) 20 mg PO DAILY [facility] Last Admin: 04/15/18 10:33 Dose: 20 mg Lactobacillus Acidophilus (Bacid Acidophilus) 1 cap PO BID [facility] Last Admin: 04/15/18 10:33 Dose: 1 cap Lisinopril (Zestril) 40 mg PO DAILY [facility] Last Admin: 04/15/18 10:31 Dose: 40 mg Lorazepam (Ativan) 1 mg IVP Q6H PRN PRN Reason: Symptoms of alcohol withdrawl Last Admin: 04/04/18 18:24 Dose: 1 mg Multivitamins (Hexavitamin) 1 tab PO DAILY [facility] Last Admin: 04/15/18 10:31 Dose: 1 tab Pantoprazole Sodium (Protonix Ec Tab) 40 mg PO DAILY [facility] Last Admin: 04/15/18 10:31 Dose: 40 mg Rosuvastatin Calcium (Crestor) 5 mg PO HS [facility] Last Admin: 04/14/18 21:41 Dose: 5 mg Thiamine HCl (Vitamin B1 Tab) 100 mg PO DAILY [facility] Last Admin: 04/15/18 10:31 Dose: 100 mg Vitamin A (Vitamin A & D Oint Ud Foilpak) 1 ea TOP BID [facility] Last Admin: 04/15/18 10:30 Dose: 1 ea Zinc Acetate/Diphenhydramine (Benadryl 1% Zinc Acetate -0.1%) 0 cre TOP BID PRN PRN Reason: Itching / Pruritus Last Admin: 04/10/18 17:07 Dose: 1 appl - Labs Labs: 04/13/18 07:36 04/13/18 07:36 PT 16.4 SECONDS (9.7-12.2) H 04/06/18 07:35 INR 1.5 04/06/18 07:35 APTT 28 SECONDS (21-34) 04/06/18 07:35 Attending/Attestation - Attestation I have personally seen and examined this patient.: Yes I have fully participated in the care of the patient.: Yes I have reviewed all pertinent clinical information, including history, physical exam and plan: Yes
[2018-04-15] MEDS: Vitamins A & D Oint UD Foilpak TOP SCH ×2 (10:30→17:55)
[2018-04-15] MEDS: guaiFENesin 600 mg ER Tab PO SCH ×2 (10:31→17:55)
[2018-04-15] MEDS: Multiple Vitamins Tab PO SCH (10:31)
[2018-04-15] MEDS: Pantoprazole 40 mg EC Tab PO SCH (10:31)
[2018-04-15] MEDS: Lactobacillus Acidophilus 500 MU Cap PO SCH ×2 (10:33→17:55)
[2018-04-16 07:25] LABS: ALB/GLOB RATIO 0.8 (1.0-2.1); ALBUMIN 2.8 g/dL (3.5-5.0); ALT/SGPT 39 U/L (21-72); AST/SGOT 35 U/L (17-59); BLOOD UREA NITROGEN 43 mg/dL (9-20); CALCIUM 8.2 mg/dl (8.6-10.4); GFR NON-AFRICAN AMERICAN > 60
[2018-04-16 07:33] LABS: BASO % 0.5 % (0.0-2.0); EOS # 0.3 K/uL (0.0-0.7); EOS % 4.2 % (0.0-4.0); HEMOGLOBIN 11.2 g/dL (12.0-18.0); LYMPH # 1.2 K/uL (1.0-4.3); LYMPH % 15.4 % (20.0-40.0); MEAN CELL VOLUME 89.8 fL (80.0-94.0); MEAN CORPUSCULAR HEMOGLOBIN 29.7 pg (27.0-31.0); MEAN CORPUSCULAR HGB CONC 33.1 g/dL (33.0-37.0); MEAN PLATELET VOLUME 9.7 fL (7.2-11.7); MONO # 1.3 K/uL (0.0-0.8); MONO % 16.6 % (0.0-10.0); NEUT # 5.1 K/uL (1.8-7.0); NEUT % 63.3 % (50.0-75.0); RBC 3.76 Mil/uL (4.40-5.90); RED CELL DISTRIBUTION WIDTH 16.1 % (11.5-14.5)
--- NOTE | 2018-04-16 08:18 | CP.PCM.PN ---
<Max Johnson - Last Filed: 04/16/18 17:19> Subjective - Date & Time of Evaluation Date of Evaluation: 04/16/18 Time of Evaluation: 08:15 - Subjective Subjective: PGY-[address] Richey Patient seen and examined at bedside. No acute events overnight per nursing. Patient off contact precautions. Continue to encourage patient out of bed to chair, movement with supervision. Patient does state he was out of bed and in chair over the weekend. Goal is for patient to regain strength through physical rehabilitation. PT worked with patient 04/13, 04/24. Denies nausea, vomiting, chest pain, headache, dizziness. Objective - Vital Signs/Intake and Output Vital Signs (last 24 hours): Temp Pulse Resp BP Pulse Ox 97.7 F 85 20 128/68 99 04/16/18 08:00 04/16/18 08:00 04/16/18 08:00 04/16/18 08:00 04/16/18 08:00 Intake and Output: 04/16/18 04/16/18 06:59 18:59 Intake Total 300 Balance 300 - Medications Medications: Current Medications Amlodipine Besylate (Norvasc) 10 mg PO DAILY [facility] Last Admin: 04/15/18 10:31 Dose: 10 mg Aspirin (Ecotrin) 81 mg PO DAILY [facility] Last Admin: 04/15/18 10:31 Dose: 81 mg Folic Acid (Folic Acid) 1 mg PO DAILY [facility] Last Admin: 04/15/18 10:31 Dose: 1 mg Guaifenesin (Mucinex La) 600 mg PO BID [facility] Last Admin: 04/15/18 17:55 Dose: 600 mg Hydralazine HCl (Apresoline) 100 mg PO Q8 [facility] Last Admin: 04/16/18 06:05 Dose: 100 mg Ipratropium Udall (Atrovent) 0.5 mg IH RQ6 PRN PRN Reason: Shortness of Breath Isosorbide Mononitrate (Ismo) 20 mg PO DAILY [facility] Last Admin: 04/15/18 10:33 Dose: 20 mg Lactobacillus Acidophilus (Bacid Acidophilus) 1 cap PO BID [facility] Last Admin: 04/15/18 17:55 Dose: 1 cap Lisinopril (Zestril) 40 mg PO DAILY [facility] Last Admin: 04/15/18 10:31 Dose: 40 mg Lorazepam (Ativan) 1 mg IVP Q6H PRN PRN Reason: Symptoms of alcohol withdrawl Last Admin: 04/04/18 18:24 Dose: 1 mg Multivitamins (Hexavitamin) 1 tab PO DAILY [facility] Last Admin: 04/15/18 10:31 Dose: 1 tab Pantoprazole Sodium (Protonix Ec Tab) 40 mg PO DAILY [facility] Last Admin: 04/15/18 10:31 Dose: 40 mg Rosuvastatin Calcium (Crestor) 5 mg PO HS [facility] Last Admin: 04/15/18 21:32 Dose: 5 mg Thiamine HCl (Vitamin B1 Tab) 100 mg PO DAILY [facility] Last Admin: 04/15/18 10:31 Dose: 100 mg Vitamin A (Vitamin A & D Oint Ud Foilpak) 1 ea TOP BID [facility] Last Admin: 04/15/18 17:55 Dose: 1 ea Zinc Acetate/Diphenhydramine (Benadryl 1% Zinc Acetate -0.1%) 0 cre TOP BID PRN PRN Reason: Itching / Pruritus Last Admin: 04/10/18 17:07 Dose: 1 appl - Labs Labs: 04/16/18 06:43 04/16/18 06:43 PT 16.4 SECONDS (9.7-12.2) H 04/06/18 07:35 INR 1.5 04/06/18 07:35 APTT 28 SECONDS (21-34) 04/06/18 07:35 - Constitutional Appears: Non-toxic, No Acute Distress - Head Exam Head Exam: ATRAUMATIC, NORMAL INSPECTION - Eye Exam Eye Exam: EOMI, Normal appearance - ENT Exam ENT Exam: Mucous Membranes Moist - Respiratory Exam Respiratory Exam: Clear to Ausculation Bilateral, NORMAL BREATHING PATTERN. absent: Rales, Rhonchi, Wheezes - Cardiovascular Exam Cardiovascular Exam: +S1. absent: Murmur - GI/Abdominal Exam GI & Abdominal Exam: Soft, Normal Bowel Sounds. absent: Tenderness - Extremities Exam Extremities Exam: absent: Pedal Edema, Tenderness Additional comments: No evidence of active scabies infection Edema resolved. Chronic venous stasis changes b/l with scabbed wounds. Hammer toe deformity of multiple feet b/l. Several callous on plantar/ dorsal side of foot No open sores or active bleeding noted. 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 Plan: History of chronic alcohol abuse: - Monitor for signs of withdrawal - Serum alcohol level: < 10 - Upon review of prior records, patient is known to present with altered mental status 2/2 alcohol intoxication - UDS: Negative - Ativan taperfinished on 04/09 - --Continue Ativan 1mg IV Q6 PRN for withdrawal sx - Vitamin B12: 511m Folate levels: > 20 - Thiamine, folic acid, multivitamin - ammonia level rechecked 04/11 - < 9 - PT walked with patient 04/11 - 15 feet with rolling walker. Patient needs continued PT to regain independent ambulation without assistance/RW. - --JASON Langley - will [facility] to find a prison that will take patient with RW - CT head (04/04): Chronic microvascular ischemic changes. 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 B/l basal ganglia and R thalamic lacunar infarcts. Focal encephalomalacia in the R duenas radiata. Hypertension, uncontrolled - Patient not compliant with previous discharge meds - Has been controlled with current regimen, med adjustments made during hospital course - Imdur 20mg PO daily - Lisinopril 10mg PO QD - Amlodipine 10mg PO QD - Hydralazine increased to 100 mg TID - Secondary HTN workup: - -- Renal artery duplex 04/05/2018: RIGHT: Findings suggestive of hemodynamically significant stenosis of the right renal artery, proximal segment. LEFT: No definite hemodynamically significant stenosis involving the renal arteries as visualized. - --Plasma metanephrines: f/u - --Aldosterone/Plasma renin activity: f/u Lower extremity swelling: - No evidence of cellulitis, lower extremities show blanchable erythema - Doxycycline 100 mg IV Q12H started on 04/04 - Ceftriaxone 1mg IV Q24H started on 04/04 - Lower extremities venous doppler: f/u - Blood culture (04/04): No growth x5 days - Podiatry, Dr. Gomez consulted. Help appreciated. - Foot Xray (04/03): Degenerative changes of the forefoot. No acute fractures, subluxations. B/l hammertoe deformities are identified diffusely. Severe hallux valgus deformity noted. Large plantar calcaneal spurs b/l. Pleural Effusion / Possible Pulmonary Infiltrates - Pulmonology, Dr. Lebron consulted - Doxycycline 100 mg IV Q12H, Ceftriaxone 1mg IV Q24H --> Course finished - Atrovent INH Q6 PRN - Legionella, s. pneumonia, influenza: Negative - Mycoplasma Ig.19 (normal: < 0.9), Mycoplasma IgM: negative - CXR (04/04): Limited patchy atelectasis medial right base with remaining lung liu clear. Stable prominent cardiac silhouette. - CT chest (04/04): Small to medium size right-sided effusion and mild right basilar atelectasis. Small opacities are also present within the middle lobe possibly representing rounded atelectasis and/or infiltrates. There also appears to be some mild dependent atelectasis in the left lung base. Trace right-sided effusion. Minimal linear scarring changes left lingular region. Suspect mild underlying pulmonary venous congestive changes. There also appears to be a few scattered parenchymal calcifications likely representing granulomata within both lower lung liu as well. Cardiomegaly. - CXR PA/Lateral 04/09 - Mild bibasilar atelectasis and/or infiltrate changes seen in the right mid to lower lung field with suspected mild left basilar atelectasis Scabies - Active infection resolved - Applied Permethrin 5% TOP on 04/04 - -- Permethrin 12% TOP second dose applied 04/11 - - course FINISHED - Contact precaution d/c'd - Benadryl cream BID prn for pruritis - Vitamin A and D TOP BID HX of CHF with reserved EF: - Cardiology, Dr. Dobbs consulted - Continue current regimen for BP control - hydralazine 100 PO q8, norvasc 10 PO daily, lisinopril 40 PO daily, Imdur 20mg daily - No additional echo indicated on this admission as patient is not showing symptoms of heart failure - ProBNP: 29,300- increased from previous admissions - Previous Echo (08/2017): LV normal size, borderline LV hypertrophy, Systolic function borderline, mild septal hypokinesis, LVEF >50% COPD exacerbation, resolved: - Pulmonology, Dr. Lebron consulted - Duoneb Q6 PRN - Atrovent INH Q6 PRN - Patient is stable, O2 % saturation: 95-100% on room air JASWANT, resolved: - BUN/ Cr today 04/13: 40/0.8 - Nephrology, Dr. Lizarraga consulted - Avoid nephrotoxic agents (NSAIDS, phosphate enema) - Renal artery duplex - possible significant GLADIS - see above - Renal ultrasound (04/05): non-obstructive left nephrolithiasis. Otherwise normal ultrasound Prophylaxis/diet: - DVT: Heparin 5000 units Q12H - GI: Protonix 40mg IVP daily - HHD - No labs to be drawn over the weekend Case discussed with Dr. Vladimir Johnson, PGY-1 <Ryland Pearson - Last Filed: 04/18/18 20:56> Objective - Vital Signs/Intake and Output Vital Signs (last 24 hours): Temp Pulse Resp BP Pulse Ox 98.0 F 85 20 118/67 98 04/18/18 15:30 04/18/18 15:30 04/18/18 15:30 04/18/18 15:30 04/18/18 15:30 - Medications Medications: Current Medications Amlodipine Besylate (Norvasc) 10 mg PO DAILY [facility] Last Admin: 04/18/18 09:39 Dose: 10 mg Aspirin (Ecotrin) 81 mg PO DAILY [facility] Last Admin: 04/18/18 09:38 Dose: 81 mg Folic Acid (Folic Acid) 1 mg PO DAILY [facility] Last Admin: 04/18/18 09:38 Dose: 1 mg Guaifenesin (Mucinex La) 600 mg PO BID [facility] Last Admin: 04/18/18 17:05 Dose: 600 mg Hydralazine HCl (Apresoline) 100 mg PO Q8 [facility] Last Admin: 04/18/18 13:56 Dose: 100 mg Ipratropium Udall (Atrovent) 0.5 mg IH RQ6 PRN PRN Reason: Shortness of Breath Isosorbide Mononitrate (Ismo) 20 mg PO DAILY [facility] Last Admin: 04/18/18 09:39 Dose: 20 mg Lactic Acid (Lac-Hydrin 12% Lotion (225 G)) 0 gm EXT Q12H [facility] Last Admin: 04/18/18 12:56 Dose: 1 applic Lactobacillus Acidophilus (Bacid Acidophilus) 1 cap PO BID [facility] Last Admin: 04/18/18 17:03 Dose: 1 cap Lisinopril (Zestril) 40 mg PO DAILY [facility] Last Admin: 04/18/18 09:39 Dose: 40 mg Lorazepam (Ativan) 1 mg IVP Q6H PRN PRN Reason: Symptoms of alcohol withdrawl Last Admin: 04/04/18 18:24 Dose: 1 mg Multivitamins (Hexavitamin) 1 tab PO DAILY [facility] Last Admin: 04/18/18 09:39 Dose: 1 tab Pantoprazole Sodium (Protonix Ec Tab) 40 mg PO DAILY [facility] Last Admin: 04/18/18 09:38 Dose: 40 mg Rosuvastatin Calcium (Crestor) 5 mg PO HS [facility] Last Admin: 04/17/18 21:51 Dose: 5 mg Thiamine HCl (Vitamin B1 Tab) 100 mg PO DAILY [facility] Last Admin: 04/18/18 09:39 Dose: 100 mg Vitamin A (Vitamin A & D Oint Ud Foilpak) 1 ea TOP BID [facility] Last Admin: 04/18/18 17:05 Dose: 1 ea Zinc Acetate/Diphenhydramine (Benadryl 1% Zinc Acetate -0.1%) 0 cre TOP BID PRN PRN Reason: Itching / Pruritus Last Admin: 04/10/18 17:07 Dose: 1 appl - Labs Labs: 04/18/18 07:59 04/18/18 07:59 PT 16.4 SECONDS (9.7-12.2) H 04/06/18 07:35 INR 1.5 04/06/18 07:35 APTT 28 SECONDS (21-34) 04/06/18 07:35 Attending/Attestation - Attestation I have personally seen and examined this patient.: Yes I have fully participated in the care of the patient.: Yes I have reviewed all pertinent clinical information, including history, physical exam and plan: Yes Notes (Text): 04/18/18 20:56 This is a late entry. Care of this patient was gone over in detail with the resident. Ryland Pearson D.O.
[2018-04-16] MEDS: Multiple Vitamins Tab PO SCH (09:48)
[2018-04-16] MEDS: Lactobacillus Acidophilus 500 MU Cap PO SCH ×2 (09:48→17:51)
[2018-04-16] MEDS: Vitamins A & D Oint UD Foilpak TOP SCH ×2 (09:48→17:52)
[2018-04-16] MEDS: Pantoprazole 40 mg EC Tab PO SCH (09:48)
[2018-04-16] MEDS: guaiFENesin 600 mg ER Tab PO SCH ×2 (10:17→17:51)
[2018-04-16] MEDS: Ammonium Lactate 12% Lotion (225 g) EXT SCH (12:20)
[2018-04-17] MEDS: Ammonium Lactate 12% Lotion (225 g) EXT SCH ×2 (00:40→12:07)
[2018-04-17 06:59] LABS: BASO % 0.3 % (0.0-2.0); EOS # 0.4 K/uL (0.0-0.7); EOS % 5.3 % (0.0-4.0); HEMOGLOBIN 11.2 g/dL (12.0-18.0); LYMPH % 13.2 % (20.0-40.0); MEAN CELL VOLUME 90.1 fL (80.0-94.0); MEAN CORPUSCULAR HEMOGLOBIN 29.4 pg (27.0-31.0); MEAN CORPUSCULAR HGB CONC 32.6 g/dL (33.0-37.0); MEAN PLATELET VOLUME 9.2 fL (7.2-11.7); MONO # 1.3 K/uL (0.0-0.8); MONO % 17.6 % (0.0-10.0); NEUT # 4.7 K/uL (1.8-7.0); NEUT % 63.6 % (50.0-75.0); RBC 3.83 Mil/uL (4.40-5.90); RED CELL DISTRIBUTION WIDTH 16.1 % (11.5-14.5); WHITE BLOOD COUNT 7.4 K/uL (4.8-10.8)
--- NOTE | 2018-04-17 07:52 | CP.PCM.PN ---
<Max Johnson - Last Filed: 04/17/18 16:14> Subjective - Date & Time of Evaluation Date of Evaluation: 04/17/18 Time of Evaluation: 07:54 - Subjective Subjective: PGY-[address] Pearson Patient seen and examined at bedside. No acute events overnight per nursing. Patient off contact precautions. Continue to encourage patient out of bed to chair, movement with supervision. Patient does state he was out of bed and in chair over the weekend. Goal is for patient to regain strength through physical rehabilitation. Patient worked with PT yesterday,ambulated 100 feet w/ RW min assist. Gait improving per PT, but still state patient will benefit from RW. Cont PT. Social work looking for find homeless group home that accepts patients with RW. Denies nausea, vomiting, chest pain, headache, dizziness. Objective - Vital Signs/Intake and Output Vital Signs (last 24 hours): Temp Pulse Resp BP Pulse Ox 98 F 81 20 119/68 96 04/17/18 00:00 04/17/18 05:30 04/17/18 00:00 04/17/18 05:30 04/17/18 00:00 Intake and Output: 04/17/18 04/17/18 06:59 18:59 Intake Total 1600 Balance 1600 - Medications Medications: Current Medications Amlodipine Besylate (Norvasc) 10 mg PO DAILY [facility] Last Admin: 04/16/18 09:48 Dose: 10 mg Aspirin (Ecotrin) 81 mg PO DAILY [facility] Last Admin: 04/16/18 09:48 Dose: 81 mg Folic Acid (Folic Acid) 1 mg PO DAILY [facility] Last Admin: 04/16/18 09:48 Dose: 1 mg Guaifenesin (Mucinex La) 600 mg PO BID [facility] Last Admin: 04/16/18 17:51 Dose: 600 mg Hydralazine HCl (Apresoline) 100 mg PO Q8 [facility] Last Admin: 04/17/18 05:40 Dose: 100 mg Ipratropium [place] (Atrovent) 0.5 mg IH RQ6 PRN PRN Reason: Shortness of Breath Isosorbide Mononitrate (Ismo) 20 mg PO DAILY [facility] Last Admin: 04/16/18 09:47 Dose: 20 mg Lactic Acid (Lac-Hydrin 12% Lotion (225 G)) 0 gm EXT Q12H [facility] Last Admin: 04/17/18 00:40 Dose: 1 applic Lactobacillus Acidophilus (Bacid Acidophilus) 1 cap PO BID [facility] Last Admin: 04/16/18 17:51 Dose: 1 cap Lisinopril (Zestril) 40 mg PO DAILY [facility] Last Admin: 04/16/18 09:47 Dose: 40 mg Lorazepam (Ativan) 1 mg IVP Q6H PRN PRN Reason: Symptoms of alcohol withdrawl Last Admin: 04/04/18 18:24 Dose: 1 mg Multivitamins (Hexavitamin) 1 tab PO DAILY [facility] Last Admin: 04/16/18 09:48 Dose: 1 tab Pantoprazole Sodium (Protonix Ec Tab) 40 mg PO DAILY [facility] Last Admin: 04/16/18 09:48 Dose: 40 mg Rosuvastatin Calcium (Crestor) 5 mg PO HS [facility] Last Admin: 04/16/18 21:24 Dose: 5 mg Thiamine HCl (Vitamin B1 Tab) 100 mg PO DAILY [facility] Last Admin: 04/16/18 09:47 Dose: 100 mg Vitamin A (Vitamin A & D Oint Ud Foilpak) 1 ea TOP BID [facility] Last Admin: 04/16/18 17:52 Dose: 1 ea Zinc Acetate/Diphenhydramine (Benadryl 1% Zinc Acetate -0.1%) 0 cre TOP BID PRN PRN Reason: Itching / Pruritus Last Admin: 04/10/18 17:07 Dose: 1 appl - Labs Labs: 04/17/18 06:53 04/16/18 06:43 PT 16.4 SECONDS (9.7-12.2) H 04/06/18 07:35 INR 1.5 04/06/18 07:35 APTT 28 SECONDS (21-34) 04/06/18 07:35 - Constitutional Appears: Non-toxic, No Acute Distress, Other (Improved overall hygeine) - Head Exam Head Exam: ATRAUMATIC, NORMAL INSPECTION - Eye Exam Eye Exam: EOMI, Normal appearance - ENT Exam ENT Exam: Mucous Membranes Moist - Respiratory Exam Respiratory Exam: Clear to Ausculation Bilateral, NORMAL BREATHING PATTERN. absent: Rhonchi, Wheezes - Cardiovascular Exam Cardiovascular Exam: RRR, +S1, +S2. absent: Murmur - GI/Abdominal Exam GI & Abdominal Exam: Soft, Normal Bowel Sounds. absent: Tenderness - Neurological Exam Neurological Exam: Awake, CN II-XII Intact. absent: Oriented x3 (Oriented only to self. Suspect this is his baseline level of awareness.) - Psychiatric Exam Psychiatric exam: Normal Affect, Normal Mood - Skin Skin Exam: Dry, Intact, Normal Color, Warm Assessment and Plan - Assessment and Plan (Free Text) Assessment: Patient is a 58 year old male with PMHx of hypertension, CHF with preserved EF, and CVA (left SYSTEM OPERATOR infarct) presents to ED for foot pain and possible alcohol intoxication. Plan: History of chronic alcohol abuse: - Monitor for signs of withdrawal - Serum alcohol level: < 10 - Upon review of prior records, patient is known to present with altered mental status 2/2 alcohol intoxication - UDS: Negative - Ativan taper finished on 04/09 - --Continue Ativan 1mg IV Q6 PRN for withdrawal sx - Vitamin B12: 511m Folate levels: > 20 - Thiamine, folic acid, multivitamin - ammonia level rechecked 04/11 - < 9 - CT head (04/04): Chronic microvascular ischemic changes. 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 B/l basal ganglia and R thalamic lacunar infarcts. Focal encephalomalacia in the R duenas radiata. Hypertension, uncontrolled - Patient not compliant with previous discharge meds - Has been controlled with current regimen, med adjustments made during hospital course - Imdur 20mg PO daily - Lisinopril 10mg PO QD - Amlodipine 10mg PO QD - Hydralazine increased to 100 mg TID - Secondary HTN workup: - -- Renal artery duplex 04/05/2018: RIGHT: Findings suggestive of hemody namically significant stenosis of the right renal artery, proximal segment. LEFT: No definite hemodynamically significant stenosis involving the renal arteries as visualized. - --Plasma metanephrines: f/u - --Aldosterone/Plasma renin activity: Aldosterone <1, Renin 12.25 Physical deconditioning: - PT walked with patient 04/11 - 15 feet with rolling walker. Patient needs continued PT to regain independent ambulation without assistance/RW. - PT 04/16: Patient ambulated 100 feet w/ RW min assist. "Gait was mildly unsteady, ambulated w/ stooped posture, c/o tiredness", "Pt improving w/ ambulation, impaired standing balance Cont PT. will benefit from using RW" - --On further consideration, patient will most likely require an advanced level of supervision. He does not appear to possess ability to make decisions for himself. He does not possess the capability to care for himself medically, physically, or otherwise. U[on patient's last discharge, he returned to [place] within one month as he is unable to take his medications as prescribed. Will reach out to tomorrow regarding possible intermediate vs. state guardianship. Lower extremity swelling: - No evidence of cellulitis, lower extremities show blanchable erythema - Doxycycline 100 mg IV Q12H started on 04/04 - Ceftriaxone 1mg IV Q24H started on 04/04 - Lower extremities venous doppler: f/u - Blood culture (04/04): No growth x5 days - Podiatry, Dr. Gomez consulted. Help appreciated. - Foot Xray (04/03): Degenerative changes of the forefoot. No acute fractures, subluxations. B/l hammertoe deformities are identified diffusely. Severe hallux valgus deformity noted. Large plantar calcaneal spurs b/l. Pleural Effusion / Possible Pulmonary Infiltrates - Pulmonology, Dr. Lebron consulted - Abx Course finished - (Doxycycline 100 mg IV Q12H, Ceftriaxone 1mg IV Q24H) - Atrovent INH Q6 PRN - Legionella, s. pneumonia, influenza: Negative - Mycoplasma Ig.19 (normal: < 0.9), Mycoplasma IgM: negative - CXR (04/04): Limited patchy atelectasis medial right base with remaining lung liu clear. Stable prominent cardiac silhouette. - CT chest (04/04): Small to medium size right-sided effusion and mild right basilar atelectasis. Small opacities are also present within the middle lobe possibly representing rounded atelectasis and/or infiltrates. There also appears to be some mild dependent atelectasis in the left lung base. Trace right-sided effusion. Minimal linear scarring changes left lingular region. Suspect mild underlying pulmonary venous congestive changes. There also appears to be a few scattered parenchymal calcifications likely representing granulomata within both lower lung liu as well. Cardiomegaly. - CXR PA/Lateral 04/09 - Mild bibasilar atelectasis and/or infiltrate changes seen in the right mid to lower lung field with suspected mild left basilar atelectasis Scabies - Active infection resolved - Applied Permethrin 5% TOP on 04/04 - -- Permethrin 12% TOP second dose applied 04/11 - - course FINISHED - Contact precaution d/c'd - Benadryl cream BID prn for pruritis - Vitamin A and D TOP BID HX of CHF with reserved EF: - Cardiology, Dr. Dobbs consulted - Continue current regimen for BP control - hydralazine 100 PO q8, norvasc 10 PO daily, lisinopril 40 PO daily, Imdur 20mg daily - No additional echo indicated on this admission as patient is not showing symptoms of heart failure - ProBNP: 29,300- increased from previous admissions - Previous Echo (08/2017): LV normal size, borderline LV hypertrophy, Systolic function borderline, mild septal hypokinesis, LVEF >50% COPD exacerbation, resolved: - Pulmonology, Dr. Lebron consulted - Duoneb Q6 PRN - Atrovent INH Q6 PRN - Patient is stable, O2 % saturation: 95-100% on room air JASWANT, resolved: - BUN/ Cr today 04/13: 40/0.8 - Nephrology, Dr. Lizarraga consulted - Avoid nephrotoxic agents (NSAIDS, phosphate enema) - Renal artery duplex - possible significant GLADIS - see above - Renal ultrasound (04/05): non-obstructive left nephrolithiasis. Otherwise normal ultrasound Prophylaxis/diet: - DVT: Heparin 5000 units Q12H - GI: Protonix 40mg IVP daily - HHD - No labs to be drawn over the weekend Dispo: Scabies infection resolved, ativan taper completed. Patient deconditioned, requiring extensive PT. As patient without insurance, cannot be discharged to [facility], will require placement in homeless group home that accepts patients with rolling walker. Case discussed with Dr. Vladimir Johnson, PGY-1 <Ryland Pearson - Last Filed: 04/18/18 20:56> Objective - Vital Signs/Intake and Output Vital Signs (last 24 hours): Temp Pulse Resp BP Pulse Ox 98.0 F 85 20 118/67 98 04/18/18 15:30 04/18/18 15:30 04/18/18 15:30 04/18/18 15:30 04/18/18 15:30 - Medications Medications: Current Medications Amlodipine Besylate (Norvasc) 10 mg PO DAILY [facility] Last Admin: 04/18/18 09:39 Dose: 10 mg Aspirin (Ecotrin) 81 mg PO DAILY [facility] Last Admin: 04/18/18 09:38 Dose: 81 mg Folic Acid (Folic Acid) 1 mg PO DAILY [facility] Last Admin: 04/18/18 09:38 Dose: 1 mg Guaifenesin (Mucinex La) 600 mg PO BID [facility] Last Admin: 04/18/18 17:05 Dose: 600 mg Hydralazine HCl (Apresoline) 100 mg PO Q8 [facility] Last Admin: 04/18/18 13:56 Dose: 100 mg Ipratropium [place] (Atrovent) 0.5 mg IH RQ6 PRN PRN Reason: Shortness of Breath Isosorbide Mononitrate (Ismo) 20 mg PO DAILY [facility] Last Admin: 04/18/18 09:39 Dose: 20 mg Lactic Acid (Lac-Hydrin 12% Lotion (225 G)) 0 gm EXT Q12H [facility] Last Admin: 04/18/18 12:56 Dose: 1 applic Lactobacillus Acidophilus (Bacid Acidophilus) 1 cap PO BID [facility] Last Admin: 04/18/18 17:03 Dose: 1 cap Lisinopril (Zestril) 40 mg PO DAILY [facility] Last Admin: 04/18/18 09:39 Dose: 40 mg Lorazepam (Ativan) 1 mg IVP Q6H PRN PRN Reason: Symptoms of alcohol withdrawl Last Admin: 04/04/18 18:24 Dose: 1 mg Multivitamins (Hexavitamin) 1 tab PO DAILY [facility] Last Admin: 04/18/18 09:39 Dose: 1 tab Pantoprazole Sodium (Protonix Ec Tab) 40 mg PO DAILY [facility] Last Admin: 04/18/18 09:38 Dose: 40 mg Rosuvastatin Calcium (Crestor) 5 mg PO HS [facility] Last Admin: 04/17/18 21:51 Dose: 5 mg Thiamine HCl (Vitamin B1 Tab) 100 mg PO DAILY [facility] Last Admin: 04/18/18 09:39 Dose: 100 mg Vitamin A (Vitamin A & D Oint Ud Foilpak) 1 ea TOP BID [facility] Last Admin: 11/14/18 17:05 Dose: 1 ea Zinc Acetate/Diphenhydramine (Benadryl 1% Zinc Acetate -0.1%) 0 cre TOP BID PRN PRN Reason: Itching / Pruritus Last Admin: 04/10/18 17:07 Dose: 1 appl - Labs Labs: 04/18/18 07:59 04/18/18 07:59 PT 16.4 SECONDS (9.7-12.2) H 04/06/18 07:35 INR 1.5 04/06/18 07:35 APTT 28 SECONDS (21-34) 04/06/18 07:35 Attending/Attestation - Attestation I have personally seen and examined this patient.: Yes I have fully participated in the care of the patient.: Yes I have reviewed all pertinent clinical information, including history, physical exam and plan: Yes Notes (Text): 04/18/18 20:56 This is a late entry. Care of this patient was gone over in detail with resident Dr. Alex Pearson D.O.
[2018-04-17 08:00] LABS: ALB/GLOB RATIO 0.8 (1.0-2.1); ALBUMIN 2.9 g/dL (3.5-5.0); ALT/SGPT 38 U/L (21-72); AST/SGOT 39 U/L (17-59); BLOOD UREA NITROGEN 40 mg/dL (9-20); CALCIUM 8.6 mg/dl (8.6-10.4); GFR NON-AFRICAN AMERICAN 56
[2018-04-17] MEDS: Multiple Vitamins Tab PO SCH (10:44)
[2018-04-17] MEDS: Pantoprazole 40 mg EC Tab PO SCH (10:45)
[2018-04-17] MEDS: Lactobacillus Acidophilus 500 MU Cap PO SCH ×2 (10:46→17:37)
[2018-04-17] MEDS: Vitamins A & D Oint UD Foilpak TOP SCH ×2 (10:46→17:32)
[2018-04-17] MEDS: guaiFENesin 600 mg ER Tab PO SCH ×2 (10:48→17:32)
[2018-04-18 08:05] LABS: BASO % 0.4 % (0.0-2.0); EOS # 0.3 K/uL (0.0-0.7); EOS % 3.8 % (0.0-4.0); HEMOGLOBIN 11.4 g/dL (12.0-18.0); MEAN CELL VOLUME 89.6 fL (80.0-94.0); MEAN CORPUSCULAR HEMOGLOBIN 29.5 pg (27.0-31.0); MEAN PLATELET VOLUME 9.2 fL (7.2-11.7); MONO # 1.1 K/uL (0.0-0.8); MONO % 14.8 % (0.0-10.0); NEUT # 4.7 K/uL (1.8-7.0); NRBC % 0.1 % (0.0-2.0); RBC 3.87 Mil/uL (4.40-5.90); WHITE BLOOD COUNT 7.1 K/uL (4.8-10.8)
[2018-04-18 08:28] LABS: ALT/SGPT 38 U/L (21-72); AST/SGOT 31 U/L (17-59); BLOOD UREA NITROGEN 41 mg/dL (9-20); CALCIUM 8.9 mg/dl (8.6-10.4); GFR NON-AFRICAN AMERICAN > 60
[2018-04-18 08:53] LABS: ALB/GLOB RATIO 0.9 (1.0-2.1)
--- NOTE | 2018-04-18 09:15 | CP.PCM.PN ---
<Max Jhonson - Last Filed: 04/18/18 16:04> Subjective - Date & Time of Evaluation Date of Evaluation: 04/18/18 Time of Evaluation: 09:22 - Subjective Subjective: PGY-[address] Pearson Patient seen and examined at bedside. No acute events overnight per nursing. Continue to encourage patient out of bed to chair, movement with supervision. Current goal is for patient to regain strength through physical rehabilitation. Most recent PT session was 04/16 - ambulated 100 feet w/ RW min assist. Gait improving per PT, but still state patient will benefit from RW. Cont PT. Discussed patient case on rounds - we feel that this patient lacks the mental capacity to be safely discharged to a residential or to the street. He lacks capacity to care for himself and does not take his medications without assistance. Will most likely require placement in some kind of a retirement with supervision or may require state guardianship. Will discuss with case management. Patient denies nausea, vomiting, chest pain, headache, dizziness. Objective - Vital Signs/Intake and Output Vital Signs (last 24 hours): Temp Pulse Resp BP Pulse Ox 97.8 F 88 20 113/61 99 04/18/18 08:37 04/18/18 08:37 04/18/18 08:37 04/18/18 08:37 04/18/18 08:37 Intake and Output: 04/18/18 04/18/18 06:59 18:59 Intake Total 420 Output Total 500 Balance -80 - Medications Medications: Current Medications Amlodipine Besylate (Norvasc) 10 mg PO DAILY [facility] Last Admin: 04/17/18 10:46 Dose: 10 mg Aspirin (Ecotrin) 81 mg PO DAILY [facility] Last Admin: 04/17/18 10:45 Dose: 81 mg Folic Acid (Folic Acid) 1 mg PO DAILY [facility] Last Admin: 04/17/18 10:45 Dose: 1 mg Guaifenesin (Mucinex La) 600 mg PO BID [facility] Last Admin: 04/17/18 17:32 Dose: 600 mg Hydralazine HCl (Apresoline) 100 mg PO Q8 [facility] Last Admin: 04/18/18 06:02 Dose: 100 mg Ipratropium [place] (Atrovent) 0.5 mg IH RQ6 PRN PRN Reason: Shortness of Breath Isosorbide Mononitrate (Ismo) 20 mg PO DAILY [facility] Last Admin: 04/17/18 10:45 Dose: 20 mg Lactic Acid (Lac-Hydrin 12% Lotion (225 G)) 0 gm EXT Q12H [facility] Last Admin: 04/17/18 12:07 Dose: 1 applic Lactobacillus Acidophilus (Bacid Acidophilus) 1 cap PO BID [facility] Last Admin: 04/17/18 17:37 Dose: 1 cap Lisinopril (Zestril) 40 mg PO DAILY [facility] Last Admin: 04/17/18 10:45 Dose: 40 mg Lorazepam (Ativan) 1 mg IVP Q6H PRN PRN Reason: Symptoms of alcohol withdrawl Last Admin: 04/04/18 18:24 Dose: 1 mg Multivitamins (Hexavitamin) 1 tab PO DAILY [facility] Last Admin: 04/17/18 10:44 Dose: 1 tab Pantoprazole Sodium (Protonix Ec Tab) 40 mg PO DAILY [facility] Last Admin: 04/17/18 10:45 Dose: 40 mg Rosuvastatin Calcium (Crestor) 5 mg PO HS [facility] Last Admin: 04/17/18 21:51 Dose: 5 mg Thiamine HCl (Vitamin B1 Tab) 100 mg PO DAILY [facility] Last Admin: 04/17/18 10:45 Dose: 100 mg Vitamin A (Vitamin A & D Oint Ud Foilpak) 1 ea TOP BID [facility] Last Admin: 04/17/18 17:32 Dose: 1 ea Zinc Acetate/Diphenhydramine (Benadryl 1% Zinc Acetate -0.1%) 0 cre TOP BID PRN PRN Reason: Itching / Pruritus Last Admin: 04/10/18 17:07 Dose: 1 appl - Labs Labs: 04/18/18 07:59 04/18/18 07:59 PT 16.4 SECONDS (9.7-12.2) H 04/06/18 07:35 INR 1.5 04/06/18 07:35 APTT 28 SECONDS (21-34) 04/06/18 07:35 - Constitutional Appears: Non-toxic, No Acute Distress - Head Exam Head Exam: NORMAL INSPECTION, NORMOCEPHALIC - Eye Exam Eye Exam: EOMI, Normal appearance, PERRL - ENT Exam ENT Exam: Mucous Membranes Moist - Neck Exam Neck Exam: Normal Inspection - Respiratory Exam Respiratory Exam: Clear to Ausculation Bilateral, NORMAL BREATHING PATTERN. absent: Rales, Rhonchi, Wheezes - Cardiovascular Exam Cardiovascular Exam: REGULAR RHYTHM, +S1, +S2 - GI/Abdominal Exam GI & Abdominal Exam: Soft, Normal Bowel Sounds. absent: Tenderness - Extremities Exam Extremities Exam: absent: Pedal Edema, Tenderness - Neurological Exam Neurological Exam: Awake. absent: Alert, Oriented x3 Additional comments: At baseline mental state, patient is oriented only to self. He does not appear to understand most questions. He answers in one word responses. - Psychiatric Exam Psychiatric exam: Flat Affect. absent: Anxious, Depressed - Skin Skin Exam: Dry, Intact, Normal Color, Warm Assessment and Plan - Assessment and Plan (Free Text) Assessment: Patient is a 58 year old male with PMHx of hypertension, CHF with preserved EF, and CVA (left CHIEF MEDICAL OFFICER infarct) presents to ED for foot pain and possible alcohol intoxication. Plan: History of chronic alcohol abuse: - Monitor for signs of withdrawal - Serum alcohol level: < 10 - Upon review of prior records, patient is known to present with altered mental status 2/2 alcohol intoxication - UDS: Negative - Ativan taper finished on 04/09 - --Continue Ativan 1mg IV Q6 PRN for withdrawal sx - Vitamin B12: 511m Folate levels: > 20 - Thiamine, folic acid, multivitamin - ammonia level rechecked 04/11 - < 9 - CT head (04/04): Chronic microvascular ischemic changes. 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 B/l basal ganglia and R thalamic lacunar infarcts. Focal encephalomalacia in the R duenas radiata. Hypertension, uncontrolled - Patient not compliant with previous discharge meds. Given decreased mental capacity at baseline, it is highly unlikely he will be capable of taking his daily medications without assistance. - Has been controlled with current regimen, med adjustments made during hospital course - Imdur 20mg PO daily - Lisinopril 10mg PO QD - Amlodipine 10mg PO QD - Hydralazine increased to 100 mg TID - Secondary HTN workup: - -- Renal artery duplex 04/05/2018: RIGHT: Findings suggestive of hemodynamically significant stenosis of the right renal artery, proximal segment. LEFT: No definite hemodynamically significant stenosis involving the renal arteries as visualized. - --Plasma metanephrines WNL - --Aldosterone/Plasma renin activity: Aldosterone <1, Renin 12.25 Physical deconditioning: - PT walked with patient 04/11 - 15 feet with rolling walker. Patient needs continued PT to regain independent ambulation without assistance/RW. - PT 04/16: Patient ambulated 100 feet w/ RW min assist. "Gait was mildly unsteady, ambulated w/ stooped posture, c/o tiredness", "Pt improving w/ ambulation, impaired standing balance Cont PT. will benefit from using RW" - --Pending Medicaid approval. CM helping to secure usp placement. Lower extremity swelling: - No evidence of cellulitis, lower extremities show blanchable erythema - Doxycycline 100 mg IV Q12H started on 04/04 - Ceftriaxone 1mg IV Q24H started on 04/04 - Lower extremities venous doppler: f/u - Blood culture (04/04): No growth x5 days - Podiatry, Dr. Gomez consulted. Help appreciated. - Foot Xray (04/03): Degenerative changes of the forefoot. No acute fractures, subluxations. B/l hammertoe deformities are identified diffusely. Severe hallux valgus deformity noted. Large plantar calcaneal spurs b/l. Pleural Effusion / Possible Pulmonary Infiltrates - Pulmonology, Dr. Lebron consulted - Abx Course finished - (Doxycycline 100 mg IV Q12H, Ceftriaxone 1mg IV Q24H) - Atrovent INH Q6 PRN - Legionella, s. pneumonia, influenza: Negative - Mycoplasma Ig.19 (normal: < 0.9), Mycoplasma IgM: negative - CXR (04/04): Limited patchy atelectasis medial right base with remaining lung liu clear. Stable prominent cardiac silhouette. - CT chest (04/04): Small to medium size right-sided effusion and mild right basilar atelectasis. Small opacities are also present within the middle lobe possibly representing rounded atelectasis and/or infiltrates. There also appears to be some mild dependent atelectasis in the left lung base. Trace right-sided effusion. Minimal linear scarring changes left lingular region. Suspect mild underlying pulmonary venous congestive changes. There also appears to be a few scattered parenchymal calcifications likely representing granulomata within both lower lung liu as well. Cardiomegaly. - CXR PA/Lateral 04/09 - Mild bibasilar atelectasis and/or infiltrate changes seen in the right mid to lower lung field with suspected mild left basilar atel ectasis Scabies - Active infection resolved - Applied Permethrin 5% TOP on 04/04 - -- Permethrin 12% TOP second dose applied 04/11 - - course FINISHED - Contact precaution d/c'd - Benadryl cream BID prn for pruritis - Vitamin A and D TOP BID HX of CHF with reserved EF: - Cardiology, Dr. Dobbs consulted - Continue current regimen for BP control - hydralazine 100 PO q8, norvasc 10 PO daily, lisinopril 40 PO daily, Imdur 20mg daily - No additional echo indicated on this admission as patient is not showing symptoms of heart failure - ProBNP: 29,300- increased from previous admissions - Previous Echo (08/2017): LV normal size, borderline LV hypertrophy, Systolic function borderline, mild septal hypokinesis, LVEF >50% COPD exacerbation, resolved: - Pulmonology, Dr. Lebron consulted - Duoneb Q6 PRN - Atrovent INH Q6 PRN - Patient is stable, O2 % saturation: 95-100% on room air JASWANT, resolved: - BUN/ Cr today 04/13: 40/0.8 - Nephrology, Dr. Lizarraga consulted - Avoid nephrotoxic agents (NSAIDS, phosphate enema) - Renal artery duplex - possible significant GLADIS - see above - Renal ultrasound (04/05): non-obstructive left nephrolithiasis. Otherwise normal ultrasound Prophylaxis/diet: - DVT: Heparin 5000 units Q12H - GI: Protonix 40mg IVP daily - HHD - No labs to be drawn over the weekend Dispo: Scabies infection resolved, ativan taper completed. Patient deconditioned, requiring extensive PT. Pending Medicaid approval. CM helping to secure usp placement. Case discussed with Dr. Vladimir Johnson, PGY-1 <Ryland Pearson - Last Filed: 04/18/18 20:55> Objective - Vital Signs/Intake and Output Vital Signs (last 24 hours): Temp Pulse Resp BP Pulse Ox 98.0 F 85 20 118/67 98 04/18/18 15:30 04/18/18 15:30 04/18/18 15:30 04/18/18 15:30 04/18/18 15:30 - Medications Medications: Current Medications Amlodipine Besylate (Norvasc) 10 mg PO DAILY [facility] Last Admin: 04/18/18 09:39 Dose: 10 mg Aspirin (Ecotrin) 81 mg PO DAILY [facility] Last Admin: 04/18/18 09:38 Dose: 81 mg Folic Acid (Folic Acid) 1 mg PO DAILY [facility] Last Admin: 04/18/18 09:38 Dose: 1 mg Guaifenesin (Mucinex La) 600 mg PO BID [facility] Last Admin: 04/18/18 17:05 Dose: 600 mg Hydralazine HCl (Apresoline) 100 mg PO Q8 [facility] Last Admin: 04/18/18 13:56 Dose: 100 mg Ipratropium [place] (Atrovent) 0.5 mg IH RQ6 PRN PRN Reason: Shortness of Breath Isosorbide Mononitrate (Ismo) 20 mg PO DAILY [facility] Last Admin: 04/18/18 09:39 Dose: 20 mg Lactic Acid (Lac-Hydrin 12% Lotion (225 G)) 0 gm EXT Q12H [facility] Last Admin: 04/18/18 12:56 Dose: 1 applic Lactobacillus Acidophilus (Bacid Acidophilus) 1 cap PO BID [facility] Last Admin: 04/18/18 17:03 Dose: 1 cap Lisinopril (Zestril) 40 mg PO DAILY [facility] Last Admin: 04/18/18 09:39 Dose: 40 mg Lorazepam (Ativan) 1 mg IVP Q6H PRN PRN Reason: Symptoms of alcohol withdrawl Last Admin: 04/04/18 18:24 Dose: 1 mg Multivitamins (Hexavitamin) 1 tab PO DAILY [facility] Last Admin: 04/18/18 09:39 Dose: 1 tab Pantoprazole Sodium (Protonix Ec Tab) 40 mg PO DAILY [facility] Last Admin: 04/18/18 09:38 Dose: 40 mg Rosuvastatin Calcium (Crestor) 5 mg PO HS [facility] Last Admin: 04/17/18 21:51 Dose: 5 mg Thiamine HCl (Vitamin B1 Tab) 100 mg PO DAILY [facility] Last Admin: 04/18/18 09:39 Dose: 100 mg Vitamin A (Vitamin A & D Oint Ud Foilpak) 1 ea TOP BID [facility] Last Admin: 04/18/18 17:05 Dose: 1 ea Zinc Acetate/Diphenhydramine (Benadryl 1% Zinc Acetate -0.1%) 0 cre TOP BID PRN PRN Reason: Itching / Pruritus Last Admin: 04/10/18 17:07 Dose: 1 appl - Labs Labs: 04/18/18 07:59 04/18/18 07:59 PT 16.4 SECONDS (9.7-12.2) H 04/06/18 07:35 INR 1.5 04/06/18 07:35 APTT 28 SECONDS (21-34) 04/06/18 07:35 Attending/Attestation - Attestation I have personally seen and examined this patient.: Yes I have fully participated in the care of the patient.: Yes I have reviewed all pertinent clinical information, including history, physical exam and plan: Yes Notes (Text): 04/18/18 20:51 Patient was seen and examined at 1:30 PM Care of this patient was discussed in detail with resident Dr. Johnson. Patient does not know who I am, what type of building this is, what town he is in, the [id number], who the president is despite providing him with this information everyday. Spoke with Radiology Special Procedure Tech Charly and expressed that I did not feel that it would safe to discharge patient to a residential as he would not be able to follow instructions to take his medications. Radiology Special Procedure Tech Charly is working on obtaining Medicaid for patient and then hopefully usp placement. Ryland Pearson D.O.
[2018-04-18] MEDS: Pantoprazole 40 mg EC Tab PO SCH (09:38)
[2018-04-18] MEDS: Lactobacillus Acidophilus 500 MU Cap PO SCH ×2 (09:38→17:03)
[2018-04-18] MEDS: Multiple Vitamins Tab PO SCH (09:39)
[2018-04-18] MEDS: guaiFENesin 600 mg ER Tab PO SCH ×2 (09:41→17:05)
[2018-04-18] MEDS: Vitamins A & D Oint UD Foilpak TOP SCH ×2 (09:57→17:05)
[2018-04-18] MEDS: Ammonium Lactate 12% Lotion (225 g) EXT SCH (12:56)
[2018-04-19 07:42] LABS: LYMPH # 0.9 K/uL (1.0-4.3); MEAN CORPUSCULAR HEMOGLOBIN 29.7 pg (27.0-31.0); MEAN CORPUSCULAR HGB CONC 33.1 g/dL (33.0-37.0); MEAN PLATELET VOLUME 9.2 fL (7.2-11.7)
[2018-04-19 07:51] LABS: BASO % 0.7 % (0.0-2.0); EOS # 0.3 K/uL (0.0-0.7); EOS % 4.4 % (0.0-4.0); HEMOGLOBIN 11.6 g/dL (12.0-18.0); LYMPH % 14.4 % (20.0-40.0); MEAN CELL VOLUME 89.7 fL (80.0-94.0); MONO % 15.6 % (0.0-10.0); NEUT # 4.1 K/uL (1.8-7.0); NEUT % 64.9 % (50.0-75.0); RBC 3.91 Mil/uL (4.40-5.90); RED CELL DISTRIBUTION WIDTH 15.6 % (11.5-14.5); WHITE BLOOD COUNT 6.4 K/uL (4.8-10.8)
[2018-04-19 08:10] LABS: ALB/GLOB RATIO 0.9 (1.0-2.1); ALBUMIN 3.1 g/dL (3.5-5.0); ALT/SGPT 39 U/L (21-72); AST/SGOT 31 U/L (17-59); BLOOD UREA NITROGEN 41 mg/dL (9-20); CALCIUM 8.8 mg/dl (8.6-10.4); GFR NON-AFRICAN AMERICAN > 60
[2018-04-19] MEDS: Lactobacillus Acidophilus 500 MU Cap PO SCH ×2 (09:42→17:56)
[2018-04-19] MEDS: Pantoprazole 40 mg EC Tab PO SCH (09:42)
[2018-04-19] MEDS: Multiple Vitamins Tab PO SCH (09:43)
[2018-04-19] MEDS: guaiFENesin 600 mg ER Tab PO SCH ×2 (09:43→17:56)
[2018-04-19] MEDS: Vitamins A & D Oint UD Foilpak TOP SCH ×2 (09:43→18:07)
[2018-04-19] MEDS: Ammonium Lactate 12% Lotion (225 g) EXT SCH (12:16)
--- NOTE | 2018-04-19 14:00 | CP.PCM.PN ---
Subjective - Date & Time of Evaluation Date of Evaluation: 04/19/18 Time of Evaluation: 14:09 - Subjective Subjective: PGY-[address] Pearson Patient seen and examined at bedside. No acute events overnight per nursing. Continue to encourage patient out of bed to chair, movement with supervision. Current goal is for patient to regain strength through physical rehabilitation. Most recent PT session was 04/18 - ambulated 75 feet x2 with rolling walker. Patient denies chest pain, shortness of breath, dizziness, nausea, vomiting, fevers. Objective - Vital Signs/Intake and Output Vital Signs (last 24 hours): Temp Pulse Resp BP Pulse Ox 97.4 F L 78 20 105/50 L 98 04/19/18 08:00 04/19/18 08:00 04/19/18 08:00 04/19/18 08:00 04/19/18 08:00 Intake and Output: 04/19/18 04/19/18 06:59 18:59 Intake Total 600 Output Total 500 Balance 100 - Medications Medications: Current Medications Amlodipine Besylate (Norvasc) 10 mg PO DAILY [facility] Last Admin: 04/19/18 09:43 Dose: Not Given Aspirin (Ecotrin) 81 mg PO DAILY [facility] Last Admin: 04/19/18 09:42 Dose: 81 mg Chlorthalidone (Hygroton) 25 mg PO DAILY [facility] Folic Acid (Folic Acid) 1 mg PO DAILY [facility] Last Admin: 04/19/18 09:43 Dose: 1 mg Guaifenesin (Mucinex La) 600 mg PO BID [facility] Last Admin: 04/19/18 09:43 Dose: 600 mg Hydralazine HCl (Apresoline) 75 mg PO Q8 [facility] Ipratropium [place] (Atrovent) 0.5 mg IH RQ6 PRN PRN Reason: Shortness of Breath Isosorbide Mononitrate (Ismo) 20 mg PO DAILY [facility] Last Admin: 04/19/18 09:42 Dose: 20 mg Lactic Acid (Lac-Hydrin 12% Lotion (225 G)) 0 gm EXT Q12H [facility] Last Admin: 04/19/18 12:16 Dose: 1 applic Lactobacillus Acidophilus (Bacid Acidophilus) 1 cap PO BID [facility] Last Admin: 04/19/18 09:42 Dose: 1 cap Lisinopril (Zestril) 40 mg PO DAILY [facility] Last Admin: 04/19/18 09:43 Dose: Not Given Lorazepam (Ativan) 1 mg IVP Q6H PRN PRN Reason: Symptoms of alcohol withdrawl Last Admin: 04/04/18 18:24 Dose: 1 mg Multivitamins (Hexavitamin) 1 tab PO DAILY [facility] Last Admin: 04/19/18 09:43 Dose: 1 tab Pantoprazole Sodium (Protonix Ec Tab) 40 mg PO DAILY [facility] Last Admin: 04/19/18 09:42 Dose: 40 mg Rosuvastatin Calcium (Crestor) 5 mg PO HS [facility] Last Admin: 04/18/18 21:38 Dose: Not Given Thiamine HCl (Vitamin B1 Tab) 100 mg PO DAILY [facility] Last Admin: 04/19/18 09:42 Dose: 100 mg Vitamin A (Vitamin A & D Oint Ud Foilpak) 1 ea TOP BID [facility] Last Admin: 04/19/18 09:43 Dose: 1 ea Zinc Acetate/Diphenhydramine (Benadryl 1% Zinc Acetate -0.1%) 0 cre TOP BID PRN PRN Reason: Itching / Pruritus Last Admin: 04/10/18 17:07 Dose: 1 appl - Labs Labs: 04/19/18 07:32 04/19/18 07:32 PT 16.4 SECONDS (9.7-12.2) H 04/06/18 07:35 INR 1.5 04/06/18 07:35 APTT 28 SECONDS (21-34) 04/06/18 07:35 - Constitutional Appears: Non-toxic, No Acute Distress - Head Exam Head Exam: ATRAUMATIC, NORMOCEPHALIC - Eye Exam Eye Exam: EOMI, Normal appearance - ENT Exam ENT Exam: Mucous Membranes Moist - Respiratory Exam Respiratory Exam: Clear to Ausculation Bilateral, NORMAL BREATHING PATTERN. absent: Rales, Rhonchi, Wheezes - Cardiovascular Exam Cardiovascular Exam: REGULAR RHYTHM, RRR, +S1, +S2. absent: Murmur - GI/Abdominal Exam GI & Abdominal Exam: Soft, Normal Bowel Sounds. absent: Tenderness - Extremities Exam Extremities Exam: absent: Pedal Edema, Tenderness - Neurological Exam Neurological Exam: Alert, Awake. absent: Oriented x3 Additional comments: Oriented to self - Psychiatric Exam Psychiatric exam: Normal Affect, Normal Mood - Skin Skin Exam: Dry, Normal Color, Warm Assessment and Plan - Assessment and Plan (Free Text) Assessment: Patient is a 58 year old male with PMHx of hypertension, CHF with preserved EF, and CVA (left CAUSE ANALYST infarct) presents to ED for foot pain and possible alcohol intoxication. Plan: History of chronic alcohol abuse: - Monitor for signs of withdrawal - Serum alcohol level: < 10 - Upon review of prior records, patient is known to present with altered mental status 2/2 alcohol intoxication - UDS: Negative - Ativan taper finished on 04/09 - --Continue Ativan 1mg IV Q6 PRN for withdrawal sx - Vitamin B12: 511m Folate levels: > 20 - Thiamine, folic acid, multivitamin - ammonia level rechecked 04/11 - < 9 - CT head (04/04): Chronic microvascular ischemic changes. 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 B/l basal ganglia and R thalamic lacunar infarcts. Focal encephalomalacia in the R duenas radiata. Hypertension, uncontrolled - Patient not compliant with previous discharge meds. Given decreased mental capacity at baseline, it is highly unlikely he will be capable of taking his daily medications without assistance. - Has been controlled with current regimen, med adjustments made during hospital course - Imdur 20mg PO daily - Lisinopril 10mg PO daily - Amlodipine 10mg PO daily - Hydralazine decreased from 100 mg PO TID to 75 mg PO TID - Chlorthalidone 25 mg PO daily added - --Medication adjustments made today with goal of a) increasing SBP from 100s closer to 120s-130s, and b) decreasing TID meds so patient will need to take fewer pills per day. - Secondary HTN workup: - -- Renal artery duplex 04/05/2018: RIGHT: Findings suggestive of hemodynami mago significant stenosis of the right renal artery, proximal segment. LEFT: No definite hemodynamically significant stenosis involving the renal arteries as visualized. - --Plasma metanephrines WNL - --Aldosterone/Plasma renin activity: Aldosterone <1, Renin 12.25 Physical deconditioning: - PT walked with patient 04/11 - 15 feet with rolling walker. Patient needs continued PT to regain independent ambulation without assistance/RW. - PT 04/16: Patient ambulated 100 feet w/ RW min assist. "Gait was mildly unsteady, ambulated w/ stooped posture, c/o tiredness", "Pt improving w/ ambulation, impaired standing balance Cont PT. will benefit from using RW" - --Pending Medicaid approval. CM helping to secure correction placement. Lower extremity swelling: - No evidence of cellulitis, lower extremities show blanchable erythema - Doxycycline 100 mg IV Q12H started on 04/04 - Ceftriaxone 1mg IV Q24H started on 04/04 - Lower extremities venous doppler: f/u - Blood culture (04/04): No growth x5 days - Podiatry, Dr. Gomez consulted. Help appreciated. - Foot Xray (04/03): Degenerative changes of the forefoot. No acute fractures, subluxations. B/l hammertoe deformities are identified diffusely. Severe hallux valgus deformity noted. Large plantar calcaneal spurs b/l. Pleural Effusion / Possible Pulmonary Infiltrates - Pulmonology, Dr. Lebron consulted - Abx Course finished - (Doxycycline 100 mg IV Q12H, Ceftriaxone 1mg IV Q24H) - Atrovent INH Q6 PRN - Legionella, s. pneumonia, influenza: Negative - Mycoplasma Ig.19 (normal: < 0.9), Mycoplasma IgM: negative - CXR (04/04): Limited patchy atelectasis medial right base with remaining lung liu clear. Stable prominent cardiac silhouette. - CT chest (04/04): Small to medium size right-sided effusion and mild right basilar atelectasis. Small opacities are also present within the middle lobe possibly representing rounded atelectasis and/or infiltrates. There also appears to be some mild dependent atelectasis in the left lung base. Trace right-sided effusion. Minimal linear scarring changes left lingular region. Suspect mild underlying pulmonary venous congestive changes. There also appears to be a few scattered parenchymal calcifications likely representing granulomata within both lower lung liu as well. Cardiomegaly. - CXR PA/Lateral 04/09 - Mild bibasilar atelectasis and/or infiltrate changes seen in the right mid to lower lung field with suspected mild left basilar atelectasis Scabies - Active infection resolved - Applied Permethrin 5% TOP on 04/04 - -- Permethrin 12% TOP second dose applied 04/11 - - course FINISHED - Contact precaution d/c'd - Benadryl cream BID prn for pruritis - Vitamin A and D TOP BID HX of CHF with reserved EF: - Cardiology, Dr. Dobbs consulted - Continue current regimen for BP control - hydralazine 100 PO q8, norvasc 10 PO daily, lisinopril 40 PO daily, Imdur 20mg daily - No additional echo indicated on this admission as patient is not showing symptoms of heart failure - ProBNP: 29,300- increased from previous admissions - Previous Echo (08/2017): LV normal size, borderline LV hypertrophy, Systolic function borderline, mild septal hypokinesis, LVEF >50% COPD exacerbation, resolved: - Pulmonology, Dr. Lebron consulted - Duoneb Q6 PRN - Atrovent INH Q6 PRN - Patient is stable, O2 % saturation: 95-100% on room air JASWANT, resolved: - BUN/ Cr today 04/13: 40/0.8 - Nephrology, Dr. Lizarraga consulted - Avoid nephrotoxic agents (NSAIDS, phosphate enema) - Renal artery duplex - possible significant GLADIS - see above - Renal ultrasound (04/05): non-obstructive left nephrolithiasis. Otherwise normal ultrasound Prophylaxis/diet: - DVT: Heparin 5000 units Q12H - GI: Protonix 40mg IVP daily - HHD - No labs to be drawn over the weekend Dispo: HTN meds adjusted (see above). Patient deconditioned, requiring extensive PT. Pending Medicaid approval. CM helping to secure correction placement. Case discussed with Dr. Skyler Johnson, PGY-1
[2018-04-20] MEDS: Ammonium Lactate 12% Lotion (225 g) EXT SCH (01:01)
[2018-04-20 07:09] LABS: BASO % 0.5 % (0.0-2.0); EOS # 0.3 K/uL (0.0-0.7); EOS % 5.3 % (0.0-4.0); HEMOGLOBIN 11.1 g/dL (12.0-18.0); LYMPH # 1.1 K/uL (1.0-4.3); LYMPH % 17.5 % (20.0-40.0); MEAN CELL VOLUME 89.9 fL (80.0-94.0); MEAN CORPUSCULAR HEMOGLOBIN 29.7 pg (27.0-31.0); MONO # 1.1 K/uL (0.0-0.8); MONO % 16.7 % (0.0-10.0); NEUT # 3.9 K/uL (1.8-7.0); RBC 3.73 Mil/uL (4.40-5.90); RED CELL DISTRIBUTION WIDTH 15.4 % (11.5-14.5); WHITE BLOOD COUNT 6.5 K/uL (4.8-10.8)
[2018-04-20 07:38] LABS: ALB/GLOB RATIO 0.9 (1.0-2.1); ALBUMIN 3.1 g/dL (3.5-5.0); ALT/SGPT 42 U/L (21-72); AST/SGOT 32 U/L (17-59); BLOOD UREA NITROGEN 36 mg/dL (9-20); CALCIUM 8.8 mg/dl (8.6-10.4); GFR NON-AFRICAN AMERICAN > 60
--- NOTE | 2018-04-20 08:24 | CP.PCM.PN ---
<Max Johnson - Last Filed: 04/20/18 15:30> Subjective - Date & Time of Evaluation Date of Evaluation: 04/20/18 Time of Evaluation: 08:26 - Subjective Subjective: PGY-[address] Richey Patient seen and examined at bedside. No acute events overnight per nursing. Continue to encourage patient out of bed to chair, movement with supervision. Current goal is for patient to regain strength through physical rehabilitation. Per PT, patient's gait has been improving, though still requires close supervision with RW. His mental status has been improving. Psych consulted today to determine mental capacity for medical decision making. Patient denies chest pain, shortness of breath, dizziness, nausea, vomiting, fevers. Objective - Vital Signs/Intake and Output Vital Signs (last 24 hours): Temp Pulse Resp BP Pulse Ox 97.7 F 70 20 141/82 99 04/20/18 00:05 04/20/18 05:41 04/20/18 00:05 04/20/18 05:41 04/20/18 00:05 Intake and Output: 04/20/18 04/20/18 06:59 18:59 Intake Total 300 240 Output Total 400 Balance -100 240 - Medications Medications: Current Medications Amlodipine Besylate (Norvasc) 10 mg PO DAILY [facility] Last Admin: 04/19/18 09:43 Dose: Not Given Aspirin (Ecotrin) 81 mg PO DAILY [facility] Last Admin: 04/19/18 09:42 Dose: 81 mg Chlorthalidone (Hygroton) 25 mg PO DAILY [facility] Guaifenesin (Mucinex La) 600 mg PO BID [facility] Last Admin: 04/19/18 17:56 Dose: 600 mg Hydralazine HCl (Apresoline) 75 mg PO Q8 [facility] Last Admin: 04/20/18 05:42 Dose: 75 mg Isosorbide Mononitrate (Ismo) 20 mg PO DAILY [facility] Last Admin: 04/19/18 09:42 Dose: 20 mg Lactic Acid (Lac-Hydrin 12% Lotion (225 G)) 0 gm EXT Q12H [facility] Last Admin: 04/20/18 01:01 Dose: Not Given Lactobacillus Acidophilus (Bacid Acidophilus) 1 cap PO BID [facility] Last Admin: 04/19/18 17:56 Dose: 1 cap Lisinopril (Zestril) 40 mg PO DAILY [facility] Last Admin: 04/19/18 09:43 Dose: Not Given Pantoprazole Sodium (Protonix Ec Tab) 40 mg PO DAILY [facility] Last Admin: 04/19/18 09:42 Dose: 40 mg Vitamin A (Vitamin A & D Oint Ud Foilpak) 1 ea TOP BID [facility] Last Admin: 04/19/18 18:07 Dose: 1 ea Zinc Acetate/Diphenhydramine (Benadryl 1% Zinc Acetate -0.1%) 0 cre TOP BID PRN PRN Reason: Itching / Pruritus Last Admin: 04/10/18 17:07 Dose: 1 appl - Labs Labs: 04/20/18 06:53 04/20/18 06:53 PT 16.4 SECONDS (9.7-12.2) H 04/06/18 07:35 INR 1.5 04/06/18 07:35 APTT 28 SECONDS (21-34) 04/06/18 07:35 - Constitutional Appears: Non-toxic, No Acute Distress - Head Exam Head Exam: ATRAUMATIC, NORMOCEPHALIC - Eye Exam Eye Exam: EOMI, Normal appearance - ENT Exam ENT Exam: Mucous Membranes Moist - Respiratory Exam Respiratory Exam: Clear to Ausculation Bilateral, NORMAL BREATHING PATTERN. absent: Rales, Rhonchi, Wheezes - Cardiovascular Exam Cardiovascular Exam: RRR, +S1, +S2. absent: Murmur - GI/Abdominal Exam GI & Abdominal Exam: Soft, Normal Bowel Sounds ( ). absent: Tenderness - Extremities Exam Extremities Exam: absent: Pedal Edema, Tenderness - Neurological Exam Neurological Exam: Alert, Awake. 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 Plan: Physical deconditioning: - PT 04/19: IMPROVED TOLERANCE FOR GAIT W/ RW AND REQUIRES CG/CLOSE SUPERVISION REMAINS W/ NARROW CHAKA W. SHUFFLED GAIT BUT STABLE W. USE OF RW. - --With help of CM, patient has applied for medicaid- pending approval. CM helping to secure half-way placement. - Psych, consulted, Dr. Ibarra, to evaluate whether patient maintains cognitive capacity for making medical decisions. Help appreciated, will follow recommendations. Hypertension, uncontrolled - Patient not compliant with previous discharge meds. Given decreased mental capacity at baseline, it is unlikely he will be capable of taking his daily medications without assistance. - Has been controlled with current regimen, med adjustments made during hospital course - BP Meds - --Imdur 20mg PO daily - --Lisinopril 10mg PO daily - --Amlodipine 10mg PO daily - --Hydralazine decreased from 75 mg PO TID to 50 mg BID. Continue to taper and monitor BP. - --Chlorthalidone 25 mg PO daily added - Medication adjustments made 04/19 with goal of a) increasing SBP from 100s closer to 120s-130s, and b) decreasing TID meds so patient will need to take fewer pills per day. - Secondary HTN workup: - -- Renal artery duplex 04/05/2018: RIGHT: Findings suggestive of hemodynamically significant stenosis of the right renal artery, proximal segment. LEFT: No definite hemodynamically significant stenosis involving the renal arteries as visualized. - --> Dr. Lizarraga has been following this patient and does not feel that this is significant GLADIS that would require intervention/stent. HTN to continue to be managed medically. - --Plasma metanephrines WNL - --Aldosterone/Plasma renin activity: Aldosterone <1, Renin 12.25 - ASA 81 mg PO daily - Crestor 5 mg PO HS History of chronic alcohol abuse: - Monitor for signs of withdrawal - Serum alcohol level: < 10 - Upon review of prior records, patient is known to present with altered mental status 2/2 alcohol intoxication - UDS: Negative - Ativan taper finished on 04/09 - --Continue Ativan 1mg IV Q6 PRN for withdrawal sx - Vitamin B12: 511m Folate levels: > 20 - Thiamine, folic acid, multivitamin - ammonia level rechecked 04/11 - < 9 - CT head (04/04): Chronic microvascular ischemic changes. 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 B/l basal ganglia and R thalamic lacunar infarcts. Focal encephalomalacia in the R duenas radiata. Lower extremity swelling: - No evidence of cellulitis, lower extremities show blanchable erythema - Doxycycline 100 mg IV Q12H started on 04/04 - Ceftriaxone 1mg IV Q24H started on 04/04 - Lower extremities venous doppler: f/u - Blood culture (04/04): No growth x5 days - Podiatry, Dr. Gomez consulted. Help appreciated. - Foot Xray (04/03): Degenerative changes of the forefoot. No acute fractures, subluxations. B/l hammertoe deformities are identified diffusely. Severe hallux valgus deformity noted. Large plantar calcaneal spurs b/l. Pleural Effusion / Possible Pulmonary Infiltrates - Pulmonology, Dr. Lebron consulted - Abx Course finished - (Doxycycline 100 mg IV Q12H, Ceftriaxone 1mg IV Q24H) - Atrovent INH Q6 PRN - Legionella, s. pneumonia, influenza: Negative - Mycoplasma Ig.19 (normal: < 0.9), Mycoplasma IgM: negative - CXR (04/04): Limited patchy atelectasis medial right base with remaining lung liu clear. Stable prominent cardiac silhouette. - CT chest (04/04): Small to medium size right-sided effusion and mild right basilar atelectasis. Small opacities are also present within the middle lobe possibly representing rounded atelectasis and/or infiltrates. There also appears to be some mild dependent atelectasis in the left lung base. Trace right-sided effusion. Minimal linear scarring changes left lingular region. Suspect mild underlying pulmonary venous congestive changes. There also appears to be a few scattered parenchymal calcifications likely representing granulomata within both lower lung liu as well. Cardiomegaly. - CXR PA/Lateral 04/09 - Mild bibasilar atelectasis and/or infiltrate changes seen in the right mid to lower lung field with suspected mild left basilar atelectasis Scabies - Infection Resolved - Off contact precautions - Benadryl cream BID prn for pruritis - Vitamin A and D TOP BID HX of CHF with reserved EF: - Cardiology, Dr. Dobbs consulted - Continue current regimen for BP control - 1500 mL/day fluid restricted diet - ProBNP: 29,300- increased from previous admissions - Previous Echo (08/2017): LV normal size, borderline LV hypertrophy, Systolic function borderline, mild septal hypokinesis, LVEF >50% - -- No additional echo indicated on this admission as patient is not showing symptoms of heart failure COPD exacerbation, resolved: - Pulmonology, Dr. Lebron consulted - Duoneb Q6 PRN - Atrovent INH Q6 PRN - Patient is stable, O2 % saturation: 95-100% on room air JASWANT, resolved: - BUN/ Cr remain stable - Nephrology, Dr. Lizarraga consulted - Avoid nephrotoxic agents (NSAIDS, phosphate enema) - Renal artery duplex - possible significant GLADIS - see above - Renal ultrasound (04/05): non-obstructive left nephrolithiasis. Otherwise normal ultrasound Prophylaxis/diet: - DVT: Heparin 5000 units Q12H - GI: Protonix 40mg IVP daily - HHD - No labs to be drawn over the weekend Dispo: HTN meds adjusted (see above). Patient deconditioned, requiring extensive PT. Pending Medicaid approval. CM helping to secure half-way placement. Case discussed with Dr. Kaiden Johnson, PGY-1 <Dominique Richey V - Last Filed: 04/20/18 20:54> Objective - Vital Signs/Intake and Output Vital Signs (last 24 hours): Temp Pulse Resp BP Pulse Ox 98.9 F 90 20 111/66 98 04/20/18 16:00 04/20/18 16:00 04/20/18 16:00 04/20/18 16:00 04/20/18 16:00 Intake and Output: 04/20/18 04/21/18 18:59 06:59 Intake Total 740 Balance 740 - Medications Medications: Current Medications Amlodipine Besylate (Norvasc) 10 mg PO DAILY [facility] Last Admin: 04/20/18 10:06 Dose: 10 mg Aspirin (Ecotrin) 81 mg PO DAILY [facility] Last Admin: 04/20/18 10:06 Dose: 81 mg Chlorthalidone (Hygroton) 25 mg PO DAILY [facility] Last Admin: 04/20/18 10:06 Dose: 25 mg Guaifenesin (Mucinex La) 600 mg PO BID [facility] Last Admin: 04/20/18 17:45 Dose: 600 mg Hydralazine HCl (Apresoline) 50 mg PO Q8 [facility] Last Admin: 04/20/18 14:13 Dose: 50 mg Isosorbide Mononitrate (Ismo) 20 mg PO DAILY [facility] Last Admin: 04/20/18 10:06 Dose: 20 mg Lactic Acid (Lac-Hydrin 12% Lotion (225 G)) 0 gm EXT Q12H [facility] Last Admin: 04/20/18 01:01 Dose: Not Given Lactobacillus Acidophilus (Bacid Acidophilus) 1 cap PO BID [facility] Last Admin: 04/20/18 17:44 Dose: 1 cap Lisinopril (Zestril) 40 mg PO DAILY [facility] Last Admin: 04/20/18 10:06 Dose: 40 mg Pantoprazole Sodium (Protonix Ec Tab) 40 mg PO DAILY [facility] Last Admin: 04/20/18 10:06 Dose: 40 mg Vitamin A (Vitamin A & D Oint Ud Foilpak) 1 ea TOP BID [facility] Last Admin: 04/20/18 17:45 Dose: 1 ea Zinc Acetate/Diphenhydramine (Benadryl 1% Zinc Acetate -0.1%) 0 cre TOP BID PRN PRN Reason: Itching / Pruritus Last Admin: 04/10/18 17:07 Dose: 1 appl - Labs Labs: 04/20/18 06:53 04/20/18 06:53 PT 16.4 SECONDS (9.7-12.2) H 04/06/18 07:35 INR 1.5 04/06/18 07:35 APTT 28 SECONDS (21-34) 04/06/18 07:35 Attending/Attestation - Attestation I have personally seen and examined this patient.: Yes I have fully participated in the care of the patient.: Yes I have reviewed all pertinent clinical information, including history, physical exam and plan: Yes Notes (Text): Patient seen, examined, and case discussed with day-time resident. patient reports he is in bed most of the day. Patient cannot recall the date. patient was recently moved from 5th floor to the 3rd floor. Social and mental health case manager working on discharge planning at this time. Social work working on half-way level of care. Will start application for half-way placement Continue to seek family for patient and if not family is located needed for competency. patient is agreeable per social work. I have placed psych to seek if patient can make medical decisions; there is cognitive impairment likely secondary to alcohol use; and patient has a prior occipital lobe infarct noted on CT scan. Assessment/Plan 1) History of chronic alcohol abuse Assessment/Plan * Patient has completed ativan taper. * Patient is not in the window for withdrawal * Serum alcohol level: < 10 * Upon review of prior records, patient is known to present with altered mental status 2/2 alcohol intoxication * UDS: Negative * Vitamin B12: 511m Folate levels: > 20 * c/w Thiamine, folic acid, multivitamin * Ammonia is low 2) Deconditioning Assessment/Plan * PT walked with patient 11/7 - 15 feet with rolling walker. Patient needs continued PT to regain independent ambulation without assistance/RW. * Per case management, patient will not be accepted to a homeless [facility] without ability to ambulate independently without a walker * Social work attempting to secure half-way placement * CT head (04/04): Chronic microvascular ischemic changes. 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 B/l basal ganglia and R thalamic lacunar infarcts. Focal encephalomalacia in the R duenas radiata. * C/w physical therapy given recommendation for [facility]. Patient does not have insurance to make him eligible for [facility]. 3) Hypertension Assessment/Plan * Patient has not prior history of noncompliance. * Imdur 20mg PO daily * Lisinopril 10mg PO QDaily * Amlodipine 10mg PO QDaily * Chlorthalidone 25mg PO daily * Hydralazine decreased 25mg PO Q8H * Secondary HTN workup: * Renal artery duplex 04/05/2018: RIGHT: Findings suggestive of hemodynamically significant stenosis of the right renal artery, proximal segment. LEFT: No definite hemodynamically significant stenosis involving the renal arteries as visualized. * Plasma metanephrines: f/u * Aldosterone/Plasma renin activity: f/u 4) Lower extremity swelling Resolved) * No evidence of cellulitis, lower extremities show blanchable erythema * Completed IV abx to cover for cellulitis and pneumonia * Patient's case consulted with podiatry during hospitalization. * Foot Xray (04/03): Degenerative changes of the forefoot. No acute fractures, subluxations. B/l hammertoe deformities are identified diffusely. Severe hallux valgus deformity noted. Large plantar calcaneal spurs b/l. 5) Atelectasis; possible pneumonia * Patient has completed IV abx to cover for pnuemonia * Legionella, s. pneumonia, influenza: Negative, Mycoplasma Ig.19 (normal: < 0.9), Mycoplasma IgM: negative * CXR (04/04): Limited patchy atelectasis medial right base with remaining lung liu clear. Stable prominent cardiac silhouette. * CT chest (04/04): Small to medium size right-sided effusion and mild right basilar atelectasis. Small opacities are also present within the middle lobe possibly representing rounded atelectasis and/or infiltrates. There also appears to be some mild dependent atelectasis in the left lung base. Trace right-sided effusion. Minimal linear scarring changes left lingular region. Suspect mild underlying pulmonary venous congestive changes. There also appears to be a few scattered parenchymal calcifications likely representing granulomata within both lower lung liu as well. Cardiomegaly. * CXR PA/Lateral 04/09 - Mild bibasilar atelectasis and/or infiltrate changes seen in the right mid to lower lung field with suspected mild left basilar atelectais * Mucinex 600mg PO BID 6) Scabies (resolved) * Completed 2 doses of Permethrin during hospitalization * Contact precaution d/c' * Benadryl cream BID prn for itchiness; patient advised to stop scratching. Patient has poor nail hygiene * Vitamin A and D TOP BID for dry skin 7) HX of CHF with reserved EF: * Cardiology, Dr. Dobbs consulted * Continue current regimen for BP control - hydralazine 100 PO q8, norvasc 10 PO daily, lisinopril 40 PO daily, norvasc 10mg PO daily * No additional echo indicated on this admission as patient is not showing symptoms of heart failure * ProBNP: 29,300- increased from previous admissions * Previous Echo (08/2017): LV normal size, borderline LV hypertrophy, Systolic function borderline, mild septal hypokinesis, LVEF >50% * No beta jessica given side effect of bronchospasm * Crestor 5mg PO daily * Aspirin 81mg Po daily 8) COPD exacerbation, resolved: * Pulmonology, Dr. Lebron consulted * Atrovent INH Q6 PRN * Patient is stable, O2 % saturation: 95-100% on room air 9) JASWANT, resolved: * BUN/ Cr today 04/13: 40/0.8 * Nephrology, Dr. Lizarraga consulted * Avoid nephrotoxic agents (NSAIDS, phosphate enema) * Renal artery duplex - possible significant GLADIS - see above * Renal ultrasound (04/05): non-obstructive left nephrolithiasis. Otherwise normal ultrasound 10) Prophylaxis/diet: * DVT PPX: Heparin 5000 units Q12H * GI: Protonix 40mg IVP daily * HHD Disposition: patient is medically optimized. patient will need physical therapy given gait imbalance and deconditioning. given cognive impairment, has sought psych to see if patient can make medical decisions. Social work is working for possible half-way placement.
[2018-04-20] MEDS: Vitamins A & D Oint UD Foilpak TOP SCH ×2 (10:06→17:45)
[2018-04-20] MEDS: Pantoprazole 40 mg EC Tab PO SCH (10:06)
[2018-04-20] MEDS: guaiFENesin 600 mg ER Tab PO SCH ×2 (10:06→17:45)
[2018-04-20] MEDS: Lactobacillus Acidophilus 500 MU Cap PO SCH ×2 (10:06→17:44)
--- NOTE | 2018-04-21 00:28 | CP.PCM.PN ---
<Bridget Nugent - Last Filed: 04/21/18 00:32> Subjective - Date & Time of Evaluation Date of Evaluation: 04/21/18 Time of Evaluation: 00:21 - Subjective Subjective: Medicine Night Float Patient seen and examined at bedside. Patient was resting in bed in no acute distress. He denies chest pain, SOB, nausea, vomiting, diarrhea. Per RN patient is not fully oriented. Otherwise he has no complaints. Objective - Vital Signs/Intake and Output Vital Signs (last 24 hours): Temp Pulse Resp BP Pulse Ox 98.9 F 90 20 111/66 98 04/20/18 16:00 04/20/18 16:00 04/20/18 16:00 04/20/18 16:00 04/20/18 16:00 Intake and Output: 04/20/18 04/21/18 18:59 06:59 Intake Total 740 450 Balance 740 450 - Medications Medications: Current Medications Amlodipine Besylate (Norvasc) 10 mg PO DAILY [facility] Last Admin: 04/20/18 10:06 Dose: 10 mg Aspirin (Ecotrin) 81 mg PO DAILY [facility] Last Admin: 04/20/18 10:06 Dose: 81 mg Chlorthalidone (Hygroton) 25 mg PO DAILY [facility] Last Admin: 04/20/18 10:06 Dose: 25 mg Guaifenesin (Mucinex La) 600 mg PO BID [facility] Last Admin: 04/20/18 17:45 Dose: 600 mg Hydralazine HCl (Apresoline) 25 mg PO Q8 [facility] Last Admin: 04/20/18 21:25 Dose: 25 mg Isosorbide Mononitrate (Ismo) 20 mg PO DAILY [facility] Last Admin: 04/20/18 10:06 Dose: 20 mg Lactic Acid (Lac-Hydrin 12% Lotion (225 G)) 0 gm EXT Q12H [facility] Last Admin: 04/20/18 01:01 Dose: Not Given Lactobacillus Acidophilus (Bacid Acidophilus) 1 cap PO BID [facility] Last Admin: 04/20/18 17:44 Dose: 1 cap Lisinopril (Zestril) 40 mg PO DAILY [facility] Last Admin: 04/20/18 10:06 Dose: 40 mg Pantoprazole Sodium (Protonix Ec Tab) 40 mg PO DAILY [facility] Last Admin: 04/20/18 10:06 Dose: 40 mg Rosuvastatin Calcium (Crestor) 5 mg PO HS [facility] Last Admin: 04/20/18 22:22 Dose: 5 mg Vitamin A (Vitamin A & D Oint Ud Foilpak) 1 ea TOP BID [facility] Last Admin: 04/20/18 17:45 Dose: 1 ea Zinc Acetate/Diphenhydramine (Benadryl 1% Zinc Acetate -0.1%) 0 cre TOP BID PRN PRN Reason: Itching / Pruritus Last Admin: 04/10/18 17:07 Dose: 1 appl - Labs Labs: 04/20/18 06:53 04/20/18 06:53 PT 16.4 SECONDS (9.7-12.2) H 04/06/18 07:35 INR 1.5 04/06/18 07:35 APTT 28 SECONDS (21-34) 04/06/18 07:35 - Constitutional Appears: Well, Non-toxic - Head Exam Head Exam: ATRAUMATIC, NORMAL INSPECTION - Eye Exam Eye Exam: EOMI, Normal appearance - Neck Exam Neck Exam: Normal Inspection - Respiratory Exam Respiratory Exam: Clear to Ausculation Bilateral, NORMAL BREATHING PATTERN - Cardiovascular Exam Cardiovascular Exam: REGULAR RHYTHM - GI/Abdominal Exam GI & Abdominal Exam: Soft, Normal Bowel Sounds. absent: Bruit, Distended, Firm, Guarding, Rigid, Tenderness - Extremities Exam Extremities Exam: Normal Inspection. absent: Calf Tenderness - Neurological Exam Neurological Exam: Alert, Awake, Oriented x3 (Was able to recall name, , and city on exam) - Psychiatric Exam Psychiatric exam: Normal Affect, Normal Mood - Skin Skin Exam: Dry, Intact, Normal Color, Warm Assessment and Plan - Assessment and Plan (Free Text) Assessment: 58 year old male with PMHx of HTN, ETOH abuse, CHF, and CVA presented to the ED for foot pain and with altered mental status. Patient currently stable on medicine floor. Physical deconditioning: - PT 04/19: IMPROVED TOLERANCE FOR GAIT W/ RW AND REQUIRES CG/CLOSE SUPERVISION REMAINS W/ [place]ARROW [place]AKA W. SHUFFLED GAIT BUT STABLE W. USE OF RW. - --With help of CM, patient has applied for medicaid- pending approval. CM helping to secure senior care placement. - Psych, consulted, Dr. Ibarra, to evaluate whether patient maintains cognitive capacity for making medical decisions. Help appreciated, will follow recomme ndations. Hypertension, uncontrolled - Patient not compliant with previous discharge meds. Given decreased mental capacity at baseline, it is unlikely he will be capable of taking his daily medications without assistance. - Has been controlled with current regimen, med adjustments made during hospital course - BP Meds - --Imdur 20mg PO daily - --Lisinopril 10mg PO daily - --Amlodipine 10mg PO daily - --Hydralazine decreased from 75 mg PO TID to 50 mg BID. Continue to taper and monitor BP. - --Chlorthalidone 25 mg PO daily added - Medication adjustments made 04/19 with goal of a) increasing SBP from 100s closer to 120s-130s, and b) decreasing TID meds so patient will need to take fewer pills per day. - Secondary HTN workup: - -- Renal artery duplex 04/05/2018: RIGHT: Findings suggestive of hemodynamically significant stenosis of the right renal artery, proximal segment. LEFT: No definite hemodynamically significant stenosis involving the renal arteries as visualized. - --> Dr. Lizarraga has been following this patient and does not feel that this is significant GLADIS that would require intervention/stent. HTN to continue to be managed medically. - --Plasma metanephrines WNL - --Aldosterone/Plasma renin activity: Aldosterone <1, Renin 12.25 - ASA 81 mg PO daily - Crestor 5 mg PO HS History of chronic alcohol abuse: - Monitor for signs of withdrawal - Serum alcohol level: < 10 - Upon review of prior records, patient is known to present with altered mental status 2/2 alcohol intoxication - UDS: Negative - Ativan taper finished on 04/09 - --Continue Ativan 1mg IV Q6 PRN for withdrawal sx - Vitamin B12: 511m Folate levels: > 20 - Thiamine, folic acid, multivitamin - ammonia level rechecked 04/11 - < 9 - CT head (04/04): Chronic microvascular ischemic changes. 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 B/l basal ganglia and R thalamic lacunar infarcts. Focal encephalomalacia in the R duenas radiata. Lower extremity swelling: - No evidence of cellulitis, lower extremities show blanchable erythema - Doxycycline 100 mg IV Q12H and Ceftriaxone 1mg IV Q24H finished - Lower extremities venous doppler: negative for DVT - Blood culture (04/04): No growth x 5 days - Podiatry, Dr. Gomez consulted. Help appreciated. - Foot Xray (04/03): Degenerative changes of the forefoot. No acute fractures, subluxations. B/l hammertoe deformities are identified diffusely. Severe hallux valgus deformity noted. Large plantar calcaneal spurs b/l. Pleural Effusion / Possible Pulmonary Infiltrates - Pulmonology, Dr. Lebron consulted - Abx Course finished - (Doxycycline 100 mg IV Q12H, Ceftriaxone 1mg IV Q24H) - Atrovent INH Q6 PRN - Legionella, s. pneumonia, influenza: Negative - Mycoplasma Ig.19 (normal: < 0.9), Mycoplasma IgM: negative - CXR (04/04): Limited patchy atelectasis medial right base with remaining lung liu clear. Stable prominent cardiac silhouette. - CT chest (04/04): Small to medium size right-sided effusion and mild right basilar atelectasis. Small opacities are also present within the middle lobe possibly representing rounded atelectasis and/or infiltrates. There also appears to be some mild dependent atelectasis in the left lung base. Trace right-sided effusion. Minimal linear scarring changes left lingular region. Suspect mild un derlying pulmonary venous congestive changes. There also appears to be a few scattered parenchymal calcifications likely representing granulomata within both lower lung liu as well. Cardiomegaly. - CXR PA/Lateral 04/09 - Mild bibasilar atelectasis and/or infiltrate changes seen in the right mid to lower lung field with suspected mild left basilar atelectasis HX of CHF with preserved EF: - Cardiology, Dr. Dobbs consulted - Continue current regimen for BP control - 1500 mL/day fluid restricted diet - ProBNP: 29,300- increased from previous admissions - Previous Echo (08/2017): LV normal size, borderline LV hypertrophy, Systolic function borderline, mild septal hypokinesis, LVEF >50% - -- No additional echo indicated on this admission as patient is not showing symptoms of heart failure COPD exacerbation-resolved: - Pulmonology, Dr. Lebron consulted - Duoneb Q6 PRN - Atrovent INH Q6 PRN - Patient is stable, O2 % saturation: 95-100% on room air JASWANT- resolved: - BUN/ Cr remain stable - Nephrology, Dr. Lizarraga consulted - Avoid nephrotoxic agents (NSAIDS, phosphate enema) - Renal artery duplex - possible significant GLADIS - see above - Renal ultrasound (04/05): non-obstructive left nephrolithiasis. Otherwise normal ultrasound Scabies - Resolved - Off contact precautions - Benadryl cream BID prn for pruritis - Vitamin A and D TOP BID Prophylaxis/diet: - DVT: Heparin 5000 units Q12H - GI: Protonix 40mg IVP daily Dispo: Pending Medicaid approval. CM helping to secure senior care placement. <Dominique Richey V - Last Filed: 04/21/18 17:18> Objective - Vital Signs/Intake and Output Vital Signs (last 24 hours): Temp Pulse Resp BP Pulse Ox 97.9 F 77 20 100/47 L 99 04/21/18 16:31 04/21/18 16:31 04/21/18 16:31 04/21/18 16:31 04/21/18 16:31 Intake and Output: 04/21/18 04/21/18 06:59 18:59 Intake Total 750 300 Balance 750 300 - Medications Medications: Current Medications Amlodipine Besylate (Norvasc) 10 mg PO DAILY [facility] Last Admin: 04/21/18 10:13 Dose: 10 mg Aspirin (Ecotrin) 81 mg PO DAILY [facility] Last Admin: 04/21/18 10:13 Dose: 81 mg Chlorthalidone (Hygroton) 25 mg PO DAILY [facility] Last Admin: 04/21/18 10:13 Dose: 25 mg Guaifenesin (Mucinex La) 600 mg PO BID [facility] Last Admin: 04/21/18 10:09 Dose: Not Given Isosorbide Mononitrate (Ismo) 20 mg PO DAILY [facility] Last Admin: 04/21/18 10:10 Dose: 20 mg Lactic Acid (Lac-Hydrin 12% Lotion (225 G)) 0 gm EXT Q12H [facility] Last Admin: 04/20/18 01:01 Dose: Not Given Lactobacillus Acidophilus (Bacid Acidophilus) 1 cap PO BID [facility] Last Admin: 04/21/18 10:13 Dose: 1 cap Lisinopril (Zestril) 40 mg PO DAILY [facility] Last Admin: 04/21/18 10:13 Dose: 40 mg Pantoprazole Sodium (Protonix Ec Tab) 40 mg PO DAILY [facility] Last Admin: 04/21/18 10:10 Dose: 40 mg Rosuvastatin Calcium (Crestor) 5 mg PO HS [facility] Last Admin: 04/20/18 22:22 Dose: 5 mg Vitamin A (Vitamin A & D Oint Ud Foilpak) 1 ea TOP BID [facility] Last Admin: 04/21/18 10:13 Dose: 1 ea Zinc Acetate/Diphenhydramine (Benadryl 1% Zinc Acetate -0.1%) 0 cre TOP BID PRN PRN Reason: Itching / Pruritus Last Admin: 04/10/18 17:07 Dose: 1 appl - Labs Labs: 04/21/18 10:43 04/21/18 10:43 PT 16.4 SECONDS (9.7-12.2) H 04/06/18 07:35 INR 1.5 04/06/18 07:35 APTT 28 SECONDS (21-34) 04/06/18 07:35 Attending/Attestation - Attestation I have personally seen and examined this patient.: Yes I have fully participated in the care of the patient.: Yes I have reviewed all pertinent clinical information, including history, physical exam and plan: Yes Notes (Text): Patient seen, examined, and case discussed with day-time resident. patient seen this afternoon. Patient is able to tell me its November, cannot say the name of the President, he is aware of hospital but reports he is in medical center. Psych pending evaluation. I have d/c hydralazine given blood pressure improvement while on Chlorthaladione. Social and child support case officer working on discharge planning at this time. Social work working on senior care level of care. Will start application for senior care placement Continue to seek family for patient and if not family is located needed for competency. patient is agreeable per social work. I have placed psych to seek if patient can make medical decisions; there is cognitive impairment likely secondary to alcohol use; and patient has a prior occipital lobe infarct noted on CT scan. Psych is aware of the consult. Assessment/Plan 1) History of chronic alcohol abuse Assessment/Plan * Patient has completed ativan taper. * Patient is not in the window for withdrawal * Serum alcohol level: < 10 * Upon review of prior records, patient is known to present with altered mental status 2/2 alcohol intoxication * UDS: Negative * Vitamin B12: 511m Folate levels: > 20 * c/w Thiamine, folic acid, multivitamin * Ammonia is low 2) Deconditioning Assessment/Plan * PT walked with patient 04/11 - 15 feet with rolling walker. Patient needs continued PT to regain independent ambulation without assistance/RW. * Per case management, patient will not be accepted to a homeless senior living without ability to ambulate independently without a walker * Social work attempting to secure senior care placement * CT head (04/04): Chronic microvascular ischemic changes. 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 B/l basal ganglia and R thalamic lacunar infarcts. Focal encephalomalacia in the R duenas radiata. * C/w physical therapy given recommendation for [facility]. Patient does not have insurance to make him eligible for [facility]. 3) Hypertension Assessment/Plan * Patient has not prior history of noncompliance. * Imdur 20mg PO daily * Lisinopril 10mg PO QDaily * Amlodipine 10mg PO QDaily * Chlorthalidone 25mg PO daily * d/c Hydralazine decreased 25mg PO Q8H 04/21/18 * Secondary HTN workup: * Renal artery duplex 04/05/2018: RIGHT: Findings suggestive of hemodynamically significant stenosis of the right renal artery, proximal segment. LEFT: No definite hemodynamically significant stenosis involving the renal arteries as visualized. * Plasma metanephrines: f/u * Aldosterone/Plasma renin activity: f/u 4) Lower extremity swelling Resolved) * No evidence of cellulitis, lower extremities show blanchable erythema * Completed IV abx to cover for cellulitis and pneumonia * Patient's case consulted with podiatry during hospitalization. * Foot Xray (04/03): Degenerative changes of the forefoot. No acute fractures, subluxations. B/l hammertoe deformities are identified diffusely. Severe hallux valgus deformity noted. Large plantar calcaneal spurs b/l. 5) Atelectasis; possible pneumonia * Patient has completed IV abx to cover for pnuemonia * Legionella, s. pneumonia, influenza: Negative, Mycoplasma Ig.19 (normal: < 0.9), Mycoplasma IgM: negative * CXR (04/04): Limited patchy atelectasis medial right base with remaining lung liu clear. Stable prominent cardiac silhouette. * CT chest (04/04): Small to medium size right-sided effusion and mild right basilar atelectasis. Small opacities are also present within the middle lobe possibly representing rounded atelectasis and/or infiltrates. There also appears to be some mild dependent atelectasis in the left lung base. Trace right-sided effusion. Minimal linear scarring changes left lingular region. Suspect mild underlying pulmonary venous congestive changes. There also appears to be a few scattered parenchymal calcifications likely representing granulomata within both lower lung liu as well. Cardiomegaly. * CXR PA/Lateral 04/09 - Mild bibasilar atelectasis and/or infiltrate changes seen in the right mid to lower lung field with suspected mild left basilar atelectais * Mucinex 600mg PO BID 6) Scabies (resolved) * Completed 2 doses of Permethrin during hospitalization * Contact precaution d/c' * Benadryl cream BID prn for itchiness; patient advised to stop scratching. Patient has poor nail hygiene * Vitamin A and D TOP BID for dry skin 7) HX of CHF with reserved EF: * Cardiology, Dr. Dobbs consulted * Continue current regimen for BP control - hydralazine 100 PO q8, norvasc 10 PO daily, lisinopril 40 PO daily, norvasc 10mg PO daily * No additional echo indicated on this admission as patient is not showing symptoms of heart failure * ProBNP: 29,300- increased from previous admissions * Previous Echo (08/2017): LV normal size, borderline LV hypertrophy, Systolic function borderline, mild septal hypokinesis, LVEF >50% * No beta jessica given side effect of bronchospasm * Crestor 5mg PO daily * Aspirin 81mg Po daily 8) COPD exacerbation, resolved: * Pulmonology, Dr. Lebron consulted * Atrovent INH Q6 PRN * Patient is stable, O2 % saturation: 95-100% on room air 9) JASWANT, resolved: * BUN/ Cr today 04/13: 40/0.8 * Nephrology, Dr. Lizarraga consulted * Avoid nephrotoxic agents (NSAIDS, phosphate enema) * Renal artery duplex - possible significant GLADIS - see above * Renal ultrasound (04/05): non-obstructive left nephrolithiasis. Otherwise normal ultrasound 10) Prophylaxis/diet: * DVT PPX: Heparin 5000 units Q12H * GI: Protonix 40mg IVP daily * HHD Disposition: patient is medically optimized. patient will need physical therapy given gait imbalance and deconditioning. given cognive impairment, has sought psych to see if patient can make medical decisions. Social work is working for possible senior care placement.
--- NOTE | 2018-04-21 08:21 | CP.PCM.PCO ---
Physician Communication Note - Physician Communication Note Physician Communication Note: Spoke to SW, will see the patient.
[2018-04-21] MEDS: guaiFENesin 600 mg ER Tab PO SCH ×2 (10:09→17:24)
[2018-04-21] MEDS: Pantoprazole 40 mg EC Tab PO SCH (10:10)
[2018-04-21] MEDS: Vitamins A & D Oint UD Foilpak TOP SCH ×2 (10:13→17:24)
[2018-04-21] MEDS: Lactobacillus Acidophilus 500 MU Cap PO SCH ×2 (10:13→17:24)
[2018-04-21 10:50] LABS: BASO % 0.4 % (0.0-2.0); EOS # 0.3 K/uL (0.0-0.7); EOS % 4.2 % (0.0-4.0); HEMOGLOBIN 11.3 g/dL (12.0-18.0); LYMPH # 1.1 K/uL (1.0-4.3); LYMPH % 17.1 % (20.0-40.0); MEAN CELL VOLUME 89.6 fL (80.0-94.0); MEAN CORPUSCULAR HGB CONC 32.4 g/dL (33.0-37.0); MEAN PLATELET VOLUME 9.2 fL (7.2-11.7); MONO # 1.2 K/uL (0.0-0.8); MONO % 18.2 % (0.0-10.0); NEUT # 3.9 K/uL (1.8-7.0); NEUT % 60.1 % (50.0-75.0); RBC 3.91 Mil/uL (4.40-5.90); RED CELL DISTRIBUTION WIDTH 15.3 % (11.5-14.5); WHITE BLOOD COUNT 6.5 K/uL (4.8-10.8)
[2018-04-21 11:09] LABS: ALB/GLOB RATIO 0.9 (1.0-2.1); ALBUMIN 3.2 g/dL (3.5-5.0); ALT/SGPT 35 U/L (21-72); AST/SGOT 27 U/L (17-59); BLOOD UREA NITROGEN 48 mg/dL (9-20); CALCIUM 8.8 mg/dl (8.6-10.4); GFR NON-AFRICAN AMERICAN > 60
[2018-04-22] MEDS: Ammonium Lactate 12% Lotion (225 g) EXT SCH ×2 (00:30→12:12)
--- NOTE | 2018-04-22 08:56 | CP.PCM.PN ---
<Bridget Nugent - Last Filed: 04/22/18 08:54> Subjective - Date & Time of Evaluation Date of Evaluation: 04/22/18 Time of Evaluation: 08:54 - Subjective Subjective: Pt seen and examined at bedside this morning after eating breakfast. He denies chest pain, SOB, n/v. He enjoyed his breakfast. Objective - Vital Signs/Intake and Output Vital Signs (last 24 hours): Temp Pulse Resp BP Pulse Ox 98 F 72 20 129/82 96 04/22/18 07:39 04/22/18 07:39 04/22/18 07:39 04/22/18 07:39 04/22/18 07:39 Intake and Output: 04/22/18 04/22/18 06:59 18:59 Intake Total 200 240 Output Total 400 300 Balance -200 -60 - Medications Medications: Current Medications Amlodipine Besylate (Norvasc) 10 mg PO DAILY [facility] Last Admin: 04/21/18 10:13 Dose: 10 mg Aspirin (Ecotrin) 81 mg PO DAILY [facility] Last Admin: 04/21/18 10:13 Dose: 81 mg Chlorthalidone (Hygroton) 25 mg PO DAILY [facility] Last Admin: 04/21/18 10:13 Dose: 25 mg Guaifenesin (Mucinex La) 600 mg PO BID [facility] Last Admin: 04/21/18 17:24 Dose: 600 mg Isosorbide Mononitrate (Ismo) 20 mg PO DAILY [facility] Last Admin: 04/21/18 10:10 Dose: 20 mg Lactic Acid (Lac-Hydrin 12% Lotion (225 G)) 0 gm EXT Q12H [facility] Last Admin: 04/22/18 00:30 Dose: Not Given Lactobacillus Acidophilus (Bacid Acidophilus) 1 cap PO BID [facility] Last Admin: 04/21/18 17:24 Dose: 1 cap Lisinopril (Zestril) 40 mg PO DAILY [facility] Last Admin: 04/21/18 10:13 Dose: 40 mg Pantoprazole Sodium (Protonix Ec Tab) 40 mg PO DAILY [facility] Last Admin: 04/21/18 10:10 Dose: 40 mg Rosuvastatin Calcium (Crestor) 5 mg PO HS [facility] Last Admin: 04/21/18 21:35 Dose: Not Given Vitamin A (Vitamin A & D Oint Ud Foilpak) 1 ea TOP BID [facility] Last Admin: 04/21/18 17:24 Dose: 1 ea Zinc Acetate/Diphenhydramine (Benadryl 1% Zinc Acetate -0.1%) 0 cre TOP BID PRN PRN Reason: Itching / Pruritus Last Admin: 04/10/18 17:07 Dose: 1 appl - Labs Labs: 04/21/18 10:43 04/21/18 10:43 PT 16.4 SECONDS (9.7-12.2) H 04/06/18 07:35 INR 1.5 04/06/18 07:35 APTT 28 SECONDS (21-34) 04/06/18 07:35 - Constitutional Appears: Well, Non-toxic, Cachectic - Eye Exam Eye Exam: EOMI, Normal appearance - Neck Exam Neck Exam: Normal Inspection - Respiratory Exam Respiratory Exam: Clear to Ausculation Bilateral, NORMAL BREATHING PATTERN - Cardiovascular Exam Cardiovascular Exam: REGULAR RHYTHM - GI/Abdominal Exam GI & Abdominal Exam: Soft, Normal Bowel Sounds - Neurological Exam Neurological Exam: Alert, Awake, Oriented x3 - Psychiatric Exam Psychiatric exam: Normal Affect, Normal Mood - Skin Skin Exam: Dry, Intact, Normal Color, Warm Assessment and Plan - Assessment and Plan (Free Text) Assessment: 58 year old male with PMHx of HTN, ETOH abuse, CHF, and CVA presented to the ED for foot pain and with altered mental status. Patient currently stable on medicine floor. Physical deconditioning: - PT 04/19: IMPROVED TOLERANCE FOR GAIT W/ RW AND REQUIRES CG/CLOSE SUPERVISION REMAINS W/ [place]ARROW [place]AKA W. SHUFFLED GAIT BUT STABLE W. USE OF RW. - --With help of CM, patient has applied for medicaid- pending approval. CM helping to secure [facility] placement. - Psych, consulted, Dr. Ibarra, to evaluate whether patient maintains cognitive capacity for making medical decisions. Help appreciated, will follow recommendations. Hypertension, uncontrolled - Patient not compliant with previous discharge meds. Given decreased mental capacity at baseline, it is unlikely he will be capable of taking his daily medications without assistance. - Has been controlled with current regimen, med adjustments made during hospital course - BP Meds - --Imdur 20mg PO daily - --Lisinopril 10mg PO daily - --Amlodipine 10mg PO daily - --Hydralazine decreased from 75 mg PO TID to 50 mg BID. Continue to taper and monitor BP. - --Chlorthalidone 25 mg PO daily added - Medication adjustments made 04/19 with goal of a) increasing SBP from 100s closer to 120s-130s, and b) decreasing TID meds so patient will need to take fewer pills per day. - Secondary HTN workup: - -- Renal artery duplex 04/05/2018: RIGHT: Findings suggestive of hemodynamically significant stenosis of the right renal artery, proximal segment. LEFT: No definite hemodynamically significant stenosis involving the renal arteries as visualized. - --> Dr. Lizarraga has been following this patient and does not feel that this is significant GLADIS that would require intervention/stent. HTN to continue to be managed medically. - --Plasma metanephrines WNL - --Aldosterone/Plasma renin activity: Aldosterone <1, Renin 12.25 - ASA 81 mg PO daily - Crestor 5 mg PO HS History of chronic alcohol abuse: - Monitor for signs of withdrawal - Serum alcohol level: < 10 - Upon review of prior records, patient is known to present with altered mental status 2/2 alcohol intoxication - UDS: Negative - Ativan taper finished on 04/09 - --Continue Ativan 1mg IV Q6 PRN for withdrawal sx - Vitamin B12: 511m Folate levels: > 20 - Thiamine, folic acid, multivitamin - ammonia level rechecked 04/11 - < 9 - CT head (04/04): Chronic microvascular ischemic changes. 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 B/l basal ganglia and R thalamic lacunar infarcts. Focal encephalomalacia in the R duenas radiata. Lower extremity swelling: - No evidence of cellulitis, lower extremities show blanchable erythema - Doxycycline 100 mg IV Q12H and Ceftriaxone 1mg IV Q24H finished - Lower extremities venous doppler: negative for DVT - Blood culture (04/04): No growth x 5 days - Podiatry, Dr. Gomez consulted. Help appreciated. - Foot Xray (04/03): Degenerative changes of the forefoot. No acute fractures, subluxations. B/l hammertoe deformities are identified diffusely. Severe hallux valgus deformity noted. Large plantar calcaneal spurs b/l. Pleural Effusion / Possible Pulmonary Infiltrates - Pulmonology, Dr. Lebron consulted - Abx Course finished - (Doxycycline 100 mg IV Q12H, Ceftriaxone 1mg IV Q24H) - Atrovent INH Q6 PRN - Legionella, s. pneumonia, influenza: Negative - Mycoplasma Ig.19 (normal: < 0.9), Mycoplasma IgM: negative - CXR (04/04): Limited patchy atelectasis medial right base with remaining lung liu clear. Stable prominent cardiac silhouette. - CT chest (04/04): Small to medium size right-sided effusion and mild right basilar atelectasis. Small opacities are also present within the middle lobe possibly representing rounded atelectasis and/or infiltrates. There also appears to be some mild dependent atelectasis in the left lung base. Trace right-sided effusion. Minimal linear scarring changes left lingular region. Suspect mild underlying pulmonary venous congestive changes. There also appears to be a few scattered parenchymal calcifications likely representing granulomata within both lower lung liu as well. Cardiomegaly. - CXR PA/Lateral 04/09 - Mild bibasilar atelectasis and/or infiltrate changes seen in the right mid to lower lung field with suspected mild left basilar atelectasis HX of CHF with preserved EF: - Cardiology, Dr. Dobbs consulted - Continue current regimen for BP control - 1500 mL/day fluid restricted diet - ProBNP: 29,300- increased from previous admissions - Previous Echo (08/2017): LV normal size, borderline LV hypertrophy, Systolic function borderline, mild septal hypokinesis, LVEF >50% - -- No additional echo indicated on this admission as patient is not showing symptoms of heart failure COPD exacerbation-resolved: - Pulmonology, Dr. Lebron consulted - Duoneb Q6 PRN - Atrovent INH Q6 PRN - Patient is stable, O2 % saturation: 95-100% on room air JASWANT- resolved: - BUN/ Cr remain stable - Nephrology, Dr. Lizarraga consulted - Avoid nephrotoxic agents (NSAIDS, phosphate enema) - Renal artery duplex - possible significant GLADIS - see above - Renal ultrasound (04/05): non-obstructive left nephrolithiasis. Otherwise normal ultrasound Scabies - Resolved - Off contact precautions - Benadryl cream BID prn for pruritis - Vitamin A and D TOP BID Prophylaxis/diet: - DVT: Heparin 5000 units Q12H - GI: Protonix 40mg IVP daily Dispo: Pending Medicaid approval. CM helping to secure [facility] placement. <Anthony Turpin - Last Filed: 04/30/18 11:34> Objective - Vital Signs/Intake and Output Vital Signs (last 24 hours): Temp Pulse Resp BP Pulse Ox 98.1 F 72 20 112/79 98 04/30/18 07:51 04/30/18 07:51 04/30/18 07:51 04/30/18 07:51 04/30/18 07:51 Intake and Output: 04/30/18 04/30/18 06:59 18:59 Intake Total 650 Balance 650 - Medications Medications: Current Medications Amlodipine Besylate (Norvasc) 10 mg PO DAILY [facility] Last Admin: 04/30/18 10:54 Dose: 10 mg Aspirin (Ecotrin) 81 mg PO DAILY [facility] Last Admin: 04/30/18 10:53 Dose: 81 mg Enoxaparin Sodium (Lovenox) 40 mg SC DAILY [facility] Last Admin: 04/30/18 11:04 Dose: 40 mg Guaifenesin (Mucinex La) 600 mg PO BID [facility] Last Admin: 04/30/18 10:54 Dose: 600 mg Isosorbide Mononitrate (Ismo) 20 mg PO DAILY [facility] Last Admin: 04/30/18 10:54 Dose: 20 mg Lactic Acid (Lac-Hydrin 12% Lotion (225 G)) 0 gm EXT Q12H [facility] Last Admin: 04/30/18 00:20 Dose: 1 applic Lactobacillus Acidophilus (Bacid Acidophilus) 1 cap PO BID [facility] Last Admin: 04/30/18 10:54 Dose: 1 cap Lisinopril (Zestril) 40 mg PO DAILY [facility] Last Admin: 04/30/18 10:54 Dose: 40 mg Rosuvastatin Calcium (Crestor) 5 mg PO HS [facility] Last Admin: 04/29/18 21:50 Dose: 5 mg Vitamin A (Vitamin A & D Oint Ud Foilpak) 1 ea TOP BID [facility] Last Admin: 04/30/18 10:53 Dose: 1 ea - Labs Labs: 04/25/18 06:40 04/30/18 08:16 PT 16.4 SECONDS (9.7-12.2) H 04/06/18 07:35 INR 1.5 04/06/18 07:35 APTT 28 SECONDS (21-34) 04/06/18 07:35 Attending/Attestation - Attestation I have personally seen and examined this patient.: Yes I have fully participated in the care of the patient.: Yes I have reviewed all pertinent clinical information, including history, physical exam and plan: Yes Notes (Text): Patient was seen and examined assessment and the plan discussed with the resident I agree with the documentation
[2018-04-22] MEDS: guaiFENesin 600 mg ER Tab PO SCH ×2 (09:13→17:04)
[2018-04-22] MEDS: Pantoprazole 40 mg EC Tab PO SCH (09:13)
[2018-04-22] MEDS: Vitamins A & D Oint UD Foilpak TOP SCH ×2 (09:14→17:05)
[2018-04-22] MEDS: Lactobacillus Acidophilus 500 MU Cap PO SCH ×2 (09:14→17:04)
[2018-04-23] MEDS: Ammonium Lactate 12% Lotion (225 g) EXT SCH ×2 (00:05→13:30)
[2018-04-23] MEDS: guaiFENesin 600 mg ER Tab PO SCH ×2 (10:05→18:28)
[2018-04-23] MEDS: Pantoprazole 40 mg EC Tab PO SCH (10:05)
[2018-04-23] MEDS: Vitamins A & D Oint UD Foilpak TOP SCH ×2 (10:05→18:30)
[2018-04-23] MEDS: Lactobacillus Acidophilus 500 MU Cap PO SCH ×2 (10:06→17:44)
--- NOTE | 2018-04-23 12:29 | PCM.PSYCH ---
Initial Psychiatric Evaluation - Initial Psychiatric Evaluation Type of Admission: Voluntary Legal Status: Capacity Chief Complaint (in patient's own words): "Tired" History of Present Illness and Precipitating Events: The pt is seen, chat reviewed, and case discussed He is a 58 y/o LM, unemployed He denies any major problems or complaints He is aware of the plan which is to send him to a [facility] or [place]. He is oriented but slow in response Memory is poor (dementia) Not suicidal or homicidal, no delusions or hallucinations elicited He accepts treatment and knows it will be risky to not follow up No known past psych history No family psych history Current Medications: Active Medications Generic Name Dose Route Start Last Admin Trade Name Freq PRN Reason Stop Dose Admin Amlodipine Besylate 10 mg 04/06/18 10:00 04/23/18 10:05 Norvasc PO 10 mg DAILY [facility] Administration Aspirin 81 mg 04/05/18 10:00 04/23/18 10:05 Ecotrin PO 81 mg DAILY [facility] Administration Chlorthalidone 25 mg 04/20/18 10:00 04/23/18 10:06 Hygroton PO 25 mg DAILY [facility] Administration Guaifenesin 600 mg 04/14/18 18:00 04/23/18 10:05 Mucinex La PO 600 mg BID [facility] Administration Isosorbide Mononitrate 20 mg 04/04/18 10:00 04/23/18 10:06 Ismo PO 20 mg DAILY [facility] Administration Lactic Acid 0 gm 04/16/18 12:30 04/23/18 00:05 Lac-Hydrin 12% Lotion (225 G) EXT 1 applic Q12H [facility] Administration Lactobacillus Acidophilus 1 cap 04/04/18 10:00 04/23/18 10:06 Bacid Acidophilus PO 1 cap BID [facility] Administration Lisinopril 40 mg 04/07/18 10:00 04/23/18 10:05 Zestril PO 40 mg DAILY [facility] Administration Pantoprazole Sodium 40 mg 04/12/18 10:00 04/23/18 10:05 Protonix Ec Tab PO 40 mg DAILY [facility] Administration Rosuvastatin Calcium 5 mg 04/20/18 22:00 04/22/18 21:39 Crestor PO 5 mg HS [facility] Administration Vitamin A 1 ea 04/11/18 18:00 04/23/18 10:05 Vitamin A & D Oint Ud Foilpak TOP 1 ea BID [facility] Administration Zinc Acetate/Diphenhydramine 0 cre 04/10/18 14:32 04/10/18 17:07 Benadryl 1% Zinc Acetate -0.1% TOP 1 appl BID PRN Administration Itching / Pruritus Past Psychiatric History - Past Psychiatric History Previous Treatment History: None Pertinent Medical Hx (Current Medical&Sleep Prob, Allergies): Allergies Allergy/AdvReac Type Severity Reaction Status Date / Time No Known Allergies Allergy Verified 04/03/18 17:27 Aspirin [Aspirin Chewable] 81 mg PO DAILY #30 chew 08/10/17 Atorvastatin [Lipitor] 10 mg PO DIN #30 tab 08/10/17 Carvedilol [Coreg] 12.5 mg PO Q12 #60 tab 08/10/17 Lisinopril [Zestril] 10 mg PO DAILY #30 tab 08/10/17 Torsemide [Demadex] 10 mg PO DAILY #30 tab 08/10/17 Review of Systems - Neurological Neurological: Memory Loss - Psychiatric Psychiatric: Anxiety, Difficulty Concentrating, Memory Loss. absent: Depression, Hallucinations, Homicidal Ideation, Suicidal Ideation Mental Status Examination - Personal Presentation Personal Presentation: Looks older than stated age - Affect Affect: Constricted - Motor Activity Motor Activity: Calm - Reliability in Providing Information Reliability in Providing Information: Good - Speech Speech: Organized - Mood Mood: Anxious - Formal Thought Process Formal Thought Process: No Impairment - Cognitive Functions Orientation: Person, Situation Sensorium: Alert Attention/Concentration: Easily distracted Abstract Thinking: [place] Estimate of Intelligence: Average Judgement: Intact, as evidence by: Insight regarding need for hospitalization Memory: Recent impaired, as evidence by: Inability to recall events of the day, Remote impaired as evidenced by: Inability to recall sig life events - Risk Risk: Diminished functioning - Strength & Assets Inventory Strength & Assets Inventory: Cooperative DSM 5 DX - DSM 5 DSM 5 Diagnosis: Dementia - Recommended/Plan of Treatment Treatment Recommendations and Plan of Treatment: No additional psych treatment Support and psychoed Cleared by psych He has capacity for med decisions at this point in time 31 min
--- NOTE | 2018-04-23 14:43 | CP.PCM.PN ---
<Buzz Nash - Last Filed: 04/23/18 14:47> Subjective - Date & Time of Evaluation Date of Evaluation: 04/23/18 Time of Evaluation: 14:40 - Subjective Subjective: Hospitalist Service Pt seen and examined at bedside. Pt denies any acute events overnight. Pt denies cp sob fc nv. Objective - Vital Signs/Intake and Output Vital Signs (last 24 hours): Temp Pulse Resp BP Pulse Ox 98 F 74 20 114/71 97 04/23/18 07:51 04/23/18 07:51 04/23/18 07:51 04/23/18 07:51 04/23/18 07:51 Intake and Output: 04/23/18 04/23/18 06:59 18:59 Intake Total 800 Output Total 1100 Balance -300 - Medications Medications: Current Medications Amlodipine Besylate (Norvasc) 10 mg PO DAILY [facility] Last Admin: 04/23/18 10:05 Dose: 10 mg Aspirin (Ecotrin) 81 mg PO DAILY [facility] Last Admin: 04/23/18 10:05 Dose: 81 mg Chlorthalidone (Hygroton) 25 mg PO DAILY [facility] Last Admin: 04/23/18 10:06 Dose: 25 mg Guaifenesin (Mucinex La) 600 mg PO BID [facility] Last Admin: 04/23/18 10:05 Dose: 600 mg Isosorbide Mononitrate (Ismo) 20 mg PO DAILY [facility] Last Admin: 04/23/18 10:06 Dose: 20 mg Lactic Acid (Lac-Hydrin 12% Lotion (225 G)) 0 gm EXT Q12H [facility] Last Admin: 04/23/18 00:05 Dose: 1 applic Lactobacillus Acidophilus (Bacid Acidophilus) 1 cap PO BID [facility] Last Admin: 04/23/18 10:06 Dose: 1 cap Lisinopril (Zestril) 40 mg PO DAILY [facility] Last Admin: 04/23/18 10:05 Dose: 40 mg Pantoprazole Sodium (Protonix Ec Tab) 40 mg PO DAILY [facility] Last Admin: 04/23/18 10:05 Dose: 40 mg Rosuvastatin Calcium (Crestor) 5 mg PO HS [facility] Last Admin: 04/22/18 21:39 Dose: 5 mg Vitamin A (Vitamin A & D Oint Ud Foilpak) 1 ea TOP BID [facility] Last Admin: 04/23/18 10:05 Dose: 1 ea Zinc Acetate/Diphenhydramine (Benadryl 1% Zinc Acetate -0.1%) 0 cre TOP BID PRN PRN Reason: Itching / Pruritus Last Admin: 04/10/18 17:07 Dose: 1 appl - Labs Labs: 04/21/18 10:43 04/21/18 10:43 PT 16.4 SECONDS (9.7-12.2) H 04/06/18 07:35 INR 1.5 04/06/18 07:35 APTT 28 SECONDS (21-34) 04/06/18 07:35 - Additional Findings Additional findings: - Constitutional Appears: Well, Non-toxic, Cachectic - Eye Exam Eye Exam: EOMI, Normal appearance - Neck Exam Neck Exam: Normal Inspection - Respiratory Exam Respiratory Exam: Clear to Ausculation Bilateral, NORMAL BREATHING PATTERN - Cardiovascular Exam Cardiovascular Exam: REGULAR RHYTHM - GI/Abdominal Exam GI & Abdominal Exam: Soft, Normal Bowel Sounds - Neurological Exam Neurological Exam: Alert, Awake, Oriented x3 - Psychiatric Exam Psychiatric exam: Normal Affect, Normal Mood - Skin Skin Exam: Dry, Intact, Normal Color, Warm Assessment and Plan - Assessment and Plan (Free Text) Plan: 58 year old male with PMHx of HTN, ETOH abuse, CHF, and CVA presented to the ED for foot pain and with altered mental status. Patient currently stable on medic ine floor. Lower extremity swelling: - No evidence of cellulitis, lower extremities show blanchable erythema - Doxycycline 100 mg IV Q12H and Ceftriaxone 1mg IV Q24H finished - Lower extremities venous doppler: negative for DVT - Blood culture (04/04): No growth x 5 days - Podiatry, Dr. Gomez consulted. Help appreciated. - Foot Xray (04/03): Degenerative changes of the forefoot. No acute fractures, subluxations. B/l hammertoe deformities are identified diffusely. Severe hallux valgus deformity noted. Large plantar calcaneal spurs b/l. - PT/ Ot recommended for gait training Hypertension, uncontrolled - Patient not compliant with previous discharge meds. Given decreased mental capacity at baseline, it is unlikely he will be capable of taking his daily medications without assistance. - Has been controlled with current regimen, med adjustments made during hospital course - BP Meds - --Imdur 20mg PO daily - --Lisinopril 10mg PO daily - --Amlodipine 10mg PO daily - --Hydralazine decreased from 75 mg PO TID to 50 mg BID. Continue to taper and monitor BP. - --Chlorthalidone 25 mg PO daily added - Medication adjustments made 04/19 with goal of a) increasing SBP from 100s closer to 120s-130s, and b) decreasing TID meds so patient will need to take fewer pills per day. - Secondary HTN workup: - -- Renal artery duplex 04/05/2018: RIGHT: Findings suggestive of hemodynamically significant stenosis of the right renal artery, proximal segment. LEFT: No definite hemodynamically significant stenosis involving the renal arteries as visualized. - --> Dr. Lizarraga has been following this patient and does not feel that this is significant GLADIS that would require intervention/stent. HTN to continue to be managed medically. - --Plasma metanephrines WNL - --Aldosterone/Plasma renin activity: Aldosterone <1, Renin 12.25 - ASA 81 mg PO daily - Crestor 5 mg PO HS History of chronic alcohol abuse: - Monitor for signs of withdrawal - Serum alcohol level: < 10 - Upon review of prior records, patient is known to present with altered mental status 2/2 alcohol intoxication - UDS: Negative - Ativan taper finished on 04/09 - --Continue Ativan 1mg IV Q6 PRN for withdrawal sx - Vitamin B12: 511m Folate levels: > 20 - Thiamine, folic acid, multivitamin - ammonia level rechecked 04/11 - < 9 - CT head (04/04): Chronic microvascular ischemic changes. 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 B/l basal ganglia and R thalamic lacunar infarcts. Focal encephalomalacia in the R duenas radiata. Pleural Effusion / Possible Pulmonary Infiltrates - Pulmonology, Dr. Lebron consulted - Abx Course finished - (Doxycycline 100 mg IV Q12H, Ceftriaxone 1mg IV Q24H) - Atrovent INH Q6 PRN - Legionella, s. pneumonia, influenza: Negative - Mycoplasma Ig.19 (normal: < 0.9), Mycoplasma IgM: negative - CXR (04/04): Limited patchy atelectasis medial right base with remaining lung liu clear. Stable prominent cardiac silhouette. - CT chest (04/04): Small to medium size right-sided effusion and mild right bas ilar atelectasis. Small opacities are also present within the middle lobe possibly representing rounded atelectasis and/or infiltrates. There also appears to be some mild dependent atelectasis in the left lung base. Trace right-sided effusion. Minimal linear scarring changes left lingular region. Suspect mild underlying pulmonary venous congestive changes. There also appears to be a few scattered parenchymal calcifications likely representing granulomata within both lower lung liu as well. Cardiomegaly. - CXR PA/Lateral 04/09 - Mild bibasilar atelectasis and/or infiltrate changes seen in the right mid to lower lung field with suspected mild left basilar atelectasis HX of CHF with preserved EF: - Cardiology, Dr. Dobbs consulted - Continue current regimen for BP control - 1500 mL/day fluid restricted diet - ProBNP: 29,300- increased from previous admissions - Previous Echo (08/2017): LV normal size, borderline LV hypertrophy, Systolic function borderline, mild septal hypokinesis, LVEF >50% - -- No additional echo indicated on this admission as patient is not showing symptoms of heart failure COPD exacerbation-resolved: - Pulmonology, Dr. Lebron consulted - Duoneb Q6 PRN - Atrovent INH Q6 PRN - Patient is stable, O2 % saturation: 95-100% on room air JASWANT- resolved: - BUN/ Cr remain stable - Nephrology, Dr. Lizarraga consulted - Avoid nephrotoxic agents (NSAIDS, phosphate enema) - Renal artery duplex - possible significant GLADIS - see above - Renal ultrasound (04/05): non-obstructive left nephrolithiasis. Otherwise normal ultrasound Scabies - Resolved - Off contact precautions - Benadryl cream BID prn for pruritis - Vitamin A and D TOP BID Prophylaxis/diet: - DVT: Heparin 5000 units Q12H - GI: Protonix 40mg IVP daily Dispo: Pending Medicaid approval. CM helping to secure longterm placement. d/w Dr Kaiden Nash PGY1 <Dominique Richey V - Last Filed: 04/23/18 20:49> Objective - Vital Signs/Intake and Output Vital Signs (last 24 hours): Temp Pulse Resp BP Pulse Ox 98.6 F 82 20 117/70 95 04/23/18 15:00 04/23/18 15:00 04/23/18 15:00 04/23/18 15:00 04/23/18 15:00 Intake and Output: 04/23/18 04/24/18 18:59 06:59 Intake Total 480 Balance 480 - Medications Medications: Current Medications Amlodipine Besylate (Norvasc) 10 mg PO DAILY [facility] Last Admin: 04/23/18 10:05 Dose: 10 mg Aspirin (Ecotrin) 81 mg PO DAILY [facility] Last Admin: 04/23/18 10:05 Dose: 81 mg Chlorthalidone (Hygroton) 25 mg PO DAILY [facility] Last Admin: 04/23/18 10:06 Dose: 25 mg Enoxaparin Sodium (Lovenox) 40 mg SC DAILY [facility] Guaifenesin (Mucinex La) 600 mg PO BID [facility] Last Admin: 04/23/18 18:28 Dose: 600 mg Isosorbide Mononitrate (Ismo) 20 mg PO DAILY [facility] Last Admin: 04/23/18 10:06 Dose: 20 mg Lactic Acid (Lac-Hydrin 12% Lotion (225 G)) 0 gm EXT Q12H [facility] Last Admin: 04/23/18 00:05 Dose: 1 applic Lactobacillus Acidophilus (Bacid Acidophilus) 1 cap PO BID [facility] Last Admin: 04/23/18 17:44 Dose: 1 cap Lisinopril (Zestril) 40 mg PO DAILY [facility] Last Admin: 04/23/18 10:05 Dose: 40 mg Pantoprazole Sodium (Protonix Ec Tab) 40 mg PO DAILY [facility] Last Admin: 04/23/18 10:05 Dose: 40 mg Rosuvastatin Calcium (Crestor) 5 mg PO HS [facility] Last Admin: 04/22/18 21:39 Dose: 5 mg Vitamin A (Vitamin A & D Oint Ud Foilpak) 1 ea TOP BID [facility] Last Admin: 04/23/18 18:30 Dose: 1 ea Zinc Acetate/Diphenhydramine (Benadryl 1% Zinc Acetate -0.1%) 0 cre TOP BID PRN PRN Reason: Itching / Pruritus Last Admin: 04/10/18 17:07 Dose: 1 appl - Labs Labs: 04/21/18 10:43 04/21/18 10:43 PT 16.4 SECONDS (9.7-12.2) H 04/06/18 07:35 INR 1.5 04/06/18 07:35 APTT 28 SECONDS (21-34) 04/06/18 07:35 Attending/Attestation - Attestation I have personally seen and examined this patient.: Yes I have fully participated in the care of the patient.: Yes I have reviewed all pertinent clinical information, including history, physical exam and plan: Yes Notes (Text): Patient seen, examined, and case discussed with day-time resident. patient seen this afternoon. Patient is able to tell me its November, cannot say the name of the President, he is aware he is at [facility]. We will follow- up with psych regarding capacity. Social and behavioral health case manager working on discharge planning at this time. Social work working on longterm level of care. Will start application for longterm placement Continue to seek family for patient and if not family is located needed for competency. patient is agreeable per social work. Assessment/Plan 1) History of chronic alcohol abuse Assessment/Plan * Patient has completed ativan taper. * Patient is not in the window for withdrawal * Serum alcohol level: < 10 * Upon review of prior records, patient is known to present with altered mental status 2/2 alcohol intoxication * UDS: Negative * Vitamin B12: 511m Folate levels: > 20 * c/w Thiamine, folic acid, multivitamin * Ammonia is low 2) Deconditioning Assessment/Plan * PT walked with patient 11/ - 15 feet with rolling walker. Patient needs continued PT to regain independent ambulation without assistance/RW. * Per case management, patient will not be accepted to a homeless [facility] without ability to ambulate independently without a walker * Social work attempting to secure longterm placement * CT head (04/04): Chronic microvascular ischemic changes. 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 B/l basal ganglia and R thalamic lacunar infarcts. Focal encephalomalacia in the R duenas radiata. * C/w physical therapy given recommendation for [facility]. Patient does not have in surance to make him eligible for [facility]. 3) Hypertension Assessment/Plan * Patient has not prior history of noncompliance. * Imdur 20mg PO daily * Lisinopril 10mg PO QDaily * Amlodipine 10mg PO QDaily * Chlorthalidone 25mg PO daily * d/c Hydralazine decreased 25mg PO Q8H 04/21/18 * Secondary HTN workup: * Renal artery duplex 04/05/2018: RIGHT: Findings suggestive of hemodynamically significant stenosis of the right renal artery, proximal segment. LEFT: No definite hemodynamically significant stenosis involving the renal arteries as visualized. * Plasma metanephrines: f/u * Aldosterone/Plasma renin activity: f/u 4) Lower extremity swelling Resolved) * No evidence of cellulitis, lower extremities show blanchable erythema * Completed IV abx to cover for cellulitis and pneumonia * Patient's case consulted with podiatry during hospitalization. * Foot Xray (04/03): Degenerative changes of the forefoot. No acute fractures, subluxations. B/l hammertoe deformities are identified diffusely. Severe hallux valgus deformity noted. Large plantar calcaneal spurs b/l. 5) Atelectasis; possible pneumonia * Patient has completed IV abx to cover for pnuemonia * Legionella, s. pneumonia, influenza: Negative, Mycoplasma Ig.19 (normal: < 0.9), Mycoplasma IgM: negative * CXR (04/04): Limited patchy atelectasis medial right base with remaining lung liu clear. Stable prominent cardiac silhouette. * CT chest (04/04): Small to medium size right-sided effusion and mild right basilar atelectasis. Small opacities are also present within the middle lobe possibly representing rounded atelectasis and/or infiltrates. There also appea rs to be some mild dependent atelectasis in the left lung base. Trace right- sided effusion. Minimal linear scarring changes left lingular region. Suspect mild underlying pulmonary venous congestive changes. There also appears to be a few scattered parenchymal calcifications likely representing granulomata within both lower lung liu as well. Cardiomegaly. * CXR PA/Lateral 04/09 - Mild bibasilar atelectasis and/or infiltrate changes seen in the right mid to lower lung field with suspected mild left basilar atelectais * Mucinex 600mg PO BID 6) Scabies (resolved) * Completed 2 doses of Permethrin during hospitalization * Contact precaution d/c' * Benadryl cream BID prn for itchiness; patient advised to stop scratching. Patient has poor nail hygiene * Vitamin A and D TOP BID for dry skin 7) HX of CHF with reserved EF: * Cardiology, Dr. Dobbs consulted * Continue current regimen for BP control - hydralazine 100 PO q8, norvasc 10 PO daily, lisinopril 40 PO daily, norvasc 10mg PO daily * No additional echo indicated on this admission as patient is not showing symptoms of heart failure * ProBNP: 29,300- increased from previous admissions * Previous Echo (08/2017): LV normal size, borderline LV hypertrophy, Systolic function borderline, mild septal hypokinesis, LVEF >50% * No beta jessica given side effect of bronchospasm * Crestor 5mg PO daily * Aspirin 81mg Po daily 8) COPD exacerbation, resolved: * Pulmonology, Dr. Lebron consulted * Atrovent INH Q6 PRN * Patient is stable, O2 % saturation: 95-100% on room air 9) JASWANT, resolved: * BUN/ Cr today 04/13: 40/0.8 * Nephrology, Dr. Lizarraga consulted * Avoid nephrotoxic agents (NSAIDS, phosphate enema) * Renal artery duplex - possible significant GLADIS - see above * Renal ultrasound (04/05): non-obstructive left nephrolithiasis. Otherwise normal ultrasound 10) Prophylaxis/diet: * DVT PPX: lovenox 40mg subqdaily * GI: Protonix 40mg IVP daily * HHD Disposition: patient is medically optimized. patient will need physical therapy given gait imbalance and deconditioning. given cognitive impairment, has sought psych to see if patient can make medical decisions. Social work is working for possible longterm placement.
[2018-04-24] MEDS: Ammonium Lactate 12% Lotion (225 g) EXT SCH ×2 (00:30→11:47)
[2018-04-24 07:19] LABS: BASO % 0.5 % (0.0-2.0); EOS # 0.2 K/uL (0.0-0.7); EOS % 3.5 % (0.0-4.0); HEMOGLOBIN 11.6 g/dL (12.0-18.0); LYMPH # 1.3 K/uL (1.0-4.3); LYMPH % 19.6 % (20.0-40.0); MEAN CELL VOLUME 88.7 fL (80.0-94.0); MEAN CORPUSCULAR HEMOGLOBIN 29.5 pg (27.0-31.0); MEAN CORPUSCULAR HGB CONC 33.3 g/dL (33.0-37.0); MEAN PLATELET VOLUME 8.8 fL (7.2-11.7); MONO # 1.3 K/uL (0.0-0.8); MONO % 19.2 % (0.0-10.0); NEUT # 3.7 K/uL (1.8-7.0); NEUT % 57.2 % (50.0-75.0); RBC 3.94 Mil/uL (4.40-5.90); RED CELL DISTRIBUTION WIDTH 15.3 % (11.5-14.5); WHITE BLOOD COUNT 6.5 K/uL (4.8-10.8)
[2018-04-24 07:57] LABS: ALB/GLOB RATIO 0.9 (1.0-2.1); ALBUMIN 3.4 g/dL (3.5-5.0); CALCIUM 9.3 mg/dl (8.6-10.4)
--- NOTE | 2018-04-24 09:31 | CP.PCM.PN ---
<Buzz Nash - Last Filed: 04/24/18 15:57> Subjective - Date & Time of Evaluation Date of Evaluation: 04/24/18 Time of Evaluation: 09:29 - Subjective Subjective: Hospitalist Service Pt seen and examined at bedside. Pt denies any acute events overnight, reports foot pain is slightly improved. Denies cp sob fc nv or acute changes in bowel movements or urination Objective - Vital Signs/Intake and Output Vital Signs (last 24 hours): Temp Pulse Resp BP Pulse Ox 97.4 F L 83 20 122/61 98 04/24/18 07:37 04/24/18 07:37 04/24/18 07:37 04/24/18 07:37 04/24/18 07:37 Intake and Output: 04/24/18 04/24/18 06:59 18:59 Intake Total 300 Balance 300 - Medications Medications: Current Medications Amlodipine Besylate (Norvasc) 10 mg PO DAILY [facility] Last Admin: 04/23/18 10:05 Dose: 10 mg Aspirin (Ecotrin) 81 mg PO DAILY [facility] Last Admin: 04/23/18 10:05 Dose: 81 mg Chlorthalidone (Hygroton) 25 mg PO DAILY [facility] Last Admin: 04/23/18 10:06 Dose: 25 mg Enoxaparin Sodium (Lovenox) 40 mg SC DAILY [facility] Guaifenesin (Mucinex La) 600 mg PO BID [facility] Last Admin: 04/23/18 18:28 Dose: 600 mg Isosorbide Mononitrate (Ismo) 20 mg PO DAILY [facility] Last Admin: 04/23/18 10:06 Dose: 20 mg Lactic Acid (Lac-Hydrin 12% Lotion (225 G)) 0 gm EXT Q12H [facility] Last Admin: 04/24/18 00:30 Dose: Not Given Lactobacillus Acidophilus (Bacid Acidophilus) 1 cap PO BID [facility] Last Admin: 04/23/18 17:44 Dose: 1 cap Lisinopril (Zestril) 40 mg PO DAILY [facility] Last Admin: 04/23/18 10:05 Dose: 40 mg Pantoprazole Sodium (Protonix Ec Tab) 40 mg PO DAILY [facility] Last Admin: 04/23/18 10:05 Dose: 40 mg Rosuvastatin Calcium (Crestor) 5 mg PO [facility] Last Admin: 04/23/18 21:46 Dose: 5 mg Vitamin A (Vitamin A & D Oint Ud Foilpak) 1 ea TOP BID [facility] Last Admin: 04/23/18 18:30 Dose: 1 ea Zinc Acetate/Diphenhydramine (Benadryl 1% Zinc Acetate -0.1%) 0 cre TOP BID PRN PRN Reason: Itching / Pruritus Last Admin: 04/10/18 17:07 Dose: 1 appl - Labs Labs: 04/24/18 07:11 04/24/18 07:11 PT 16.4 SECONDS (9.7-12.2) H 04/06/18 07:35 INR 1.5 04/06/18 07:35 APTT 28 SECONDS (21-34) 04/06/18 07:35 - Additional Findings Additional findings: - Constitutional Appears: Well, Non-toxic, Cachectic - Eye Exam Eye Exam: EOMI, Normal appearance - Neck Exam Neck Exam: Normal Inspection - Respiratory Exam Respiratory Exam: Clear to Ausculation Bilateral, NORMAL BREATHING PATTERN - Cardiovascular Exam Cardiovascular Exam: REGULAR RHYTHM - GI/Abdominal Exam GI & Abdominal Exam: Soft, Normal Bowel Sounds - Neurological Exam Neurological Exam: Alert, Awake, Oriented x3 - Psychiatric Exam Psychiatric exam: Normal Affect, Normal Mood - Skin Skin Exam: Dry, Intact, Normal Color, Warm Assessment and Plan - Assessment and Plan (Free Text) Assessment: 58 year old male with PMHx of HTN, ETOH abuse, CHF, and CVA presented to the ED for foot pain and with altered mental status. Patient currently stable on medicine floor. Left Foot Hammertoes and Heel Spurs: - Pt ambulates with help of rolling walker. Tolerating PT. - Dressing changed today, betadine gauses applied to interphalangeal spaces - No evidence of cellulitis, lower extremities show blanchable erythema - Doxycycline 100 mg IV Q12H and Ceftriaxone 1mg IV Q24H finished - Lower extremities venous doppler: negative for DVT - Blood culture (04/04): No growth x 5 days - Podiatry, Dr. Gomez consulted. Help appreciated. - Foot Xray (04/03): Degenerative changes of the forefoot. No acute fractures, subluxations. B/l hammertoe deformities are identified diffusely. Severe hallux valgus deformity noted. Large plantar calcaneal spurs b/l. - PT/ Ot recommended for gait training Hypertension, uncontrolled - Patient not compliant with previous discharge meds. Given decreased mental capacity at baseline, it is unlikely he will be capable of taking his daily m edications without assistance. - Has been controlled with current regimen, med adjustments made during hospital course - BP Meds - --Imdur 20mg PO daily - --Lisinopril 10mg PO daily - --Amlodipine 10mg PO daily - --Hydralazine decreased from 75 mg PO TID to 50 mg BID. Continue to taper and monitor BP. - --Chlorthalidone 25 mg PO daily added - Secondary HTN workup: - -- Renal artery duplex 04/05/2018: RIGHT: Findings suggestive of hemodynamically significant stenosis of the right renal artery, proximal segment. LEFT: No definite hemodynamically significant stenosis involving the renal arteries as visualized. - --> Dr. Lizarraga has been following this patient and does not feel that this is significant GLADIS that would require intervention/stent. HTN to continue to be managed medically. - --Plasma metanephrines WNL - --Aldosterone/Plasma renin activity: Aldosterone <1, Renin 12.25 - ASA 81 mg PO daily - Crestor 5 mg PO HS History of chronic alcohol abuse: - Monitor for signs of withdrawal - Serum alcohol level: < 10 - Upon review of prior records, patient is known to present with altered mental status 2/2 alcohol intoxication - UDS: Negative - Ativan taper finished on 04/09 - --Continue Ativan 1mg IV Q6 PRN for withdrawal sx - Vitamin B12: 511m Folate levels: > 20 - Thiamine, folic acid, multivitamin - ammonia level rechecked 04/11 - < 9 - CT head (04/04): Chronic microvascular ischemic changes. 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 B/l basal ganglia and R thalamic lacunar infarcts. Focal encephalomalacia in the R duenas radiata. Pleural Effusion / Possible Pulmonary Infiltrates - Pulmonology, Dr. Lebron consulted - Abx Course finished - (Doxycycline 100 mg IV Q12H, Ceftriaxone 1mg IV Q24H) - Atrovent INH Q6 PRN - Legionella, s. pneumonia, influenza: Negative - Mycoplasma Ig.19 (normal: < 0.9), Mycoplasma IgM: negative - CXR (04/04): Limited patchy atelectasis medial right base with remaining lung liu clear. Stable prominent cardiac silhouette. - CT chest (04/04): Small to medium size right-sided effusion and mild right basilar atelectasis. Small opacities are also present within the middle lobe possibly representing rounded atelectasis and/or infiltrates. There also appears to be some mild dependent atelectasis in the left lung base. Trace right-sided effusion. Minimal linear scarring changes left lingular region. Suspect mild underlying pulmonary venous congestive changes. There also appears to be a few scattered parenchymal calcifications likely representing granulomata within both lower lung liu as well. Cardiomegaly. - CXR PA/Lateral 04/09 - Mild bibasilar atelectasis and/or infiltrate changes seen in the right mid to lower lung field with suspected mild left basilar atelectasis HX of CHF with preserved EF: - Cardiology, Dr. Dobbs consulted - Continue current regimen for BP control - 1500 mL/day fluid restricted diet - ProBNP: 29,300- increased from previous admissions - Previous Echo (08/2017): LV normal size, borderline LV hypertrophy, Systolic function borderline, mild septal hypokinesis, LVEF >50% - -- No additional echo indicated on this admission as patient is not showing symptoms of heart failure COPD exacerbation-resolved: - Pulmonology, Dr. Lebron consulted - Duoneb Q6 PRN - Atrovent INH Q6 PRN - Patient is stable, O2 % saturation: 95-100% on room air JASWANT- resolved: - BUN/ Cr remain stable - Nephrology, Dr. Lizarraga consulted - Avoid nephrotoxic agents (NSAIDS, phosphate enema) - Renal artery duplex - possible significant GLADIS - see above - Renal ultrasound (04/05): non-obstructive left nephrolithiasis. Otherwise normal ultrasound Scabies - Resolved - Off contact precautions - Benadryl cream BID prn for pruritis - Vitamin A and D TOP BID Prophylaxis/diet: - DVT: Lovenox 40units qd, SCDs - GI: Protonix 40mg IVP daily Dispo: Pending Medicaid approval. CM helping to secure longterm placement. d/w Dr Kaiden Nash PGY1 <Dominique Richey V - Last Filed: 04/24/18 19:21> Objective - Vital Signs/Intake and Output Vital Signs (last 24 hours): Temp Pulse Resp BP Pulse Ox 98.7 F 86 20 114/72 96 04/24/18 16:00 04/24/18 16:00 04/24/18 16:00 04/24/18 16:00 04/24/18 16:00 Intake and Output: 04/24/18 04/25/18 18:59 06:59 Intake Total 500 Balance 500 - Medications Medications: Current Medications Amlodipine Besylate (Norvasc) 10 mg PO DAILY [facility] Last Admin: 04/24/18 10:14 Dose: 10 mg Aspirin (Ecotrin) 81 mg PO DAILY [facility] Last Admin: 04/24/18 10:14 Dose: 81 mg Chlorthalidone (Hygroton) 25 mg PO DAILY [facility] Last Admin: 04/24/18 10:15 Dose: 25 mg Enoxaparin Sodium (Lovenox) 40 mg SC DAILY [facility] Last Admin: 04/24/18 10:14 Dose: 40 mg Guaifenesin (Mucinex La) 600 mg PO BID [facility] Last Admin: 04/24/18 17:06 Dose: 600 mg Isosorbide Mononitrate (Ismo) 20 mg PO DAILY [facility] Last Admin: 04/24/18 10:14 Dose: 20 mg Lactic Acid (Lac-Hydrin 12% Lotion (225 G)) 0 gm EXT Q12H [facility] Last Admin: 04/24/18 11:47 Dose: 1 applic Lactobacillus Acidophilus (Bacid Acidophilus) 1 cap PO BID [facility] Last Admin: 04/24/18 17:06 Dose: 1 cap Lisinopril (Zestril) 40 mg PO DAILY [facility] Last Admin: 04/24/18 10:14 Dose: 40 mg Pantoprazole Sodium (Protonix Ec Tab) 40 mg PO DAILY [facility] Last Admin: 04/24/18 10:14 Dose: 40 mg Rosuvastatin Calcium (Crestor) 5 mg PO HS [facility] Last Admin: 04/23/18 21:46 Dose: 5 mg Vitamin A (Vitamin A & D Oint Ud Foilpak) 1 ea TOP BID [facility] Last Admin: 04/24/18 17:06 Dose: 1 ea Zinc Acetate/Diphenhydramine (Benadryl 1% Zinc Acetate -0.1%) 0 cre TOP BID PRN PRN Reason: Itching / Pruritus Last Admin: 04/10/18 17:07 Dose: 1 appl - Labs Labs: 04/24/18 07:11 04/24/18 07:11 PT 16.4 SECONDS (9.7-12.2) H 04/06/18 07:35 INR 1.5 04/06/18 07:35 APTT 28 SECONDS (21-34) 04/06/18 07:35 Attending/Attestation - Attestation I have personally seen and examined this patient.: Yes I have fully participated in the care of the patient.: Yes I have reviewed all pertinent clinical information, including history, physical exam and plan: Yes Notes (Text): Patient seen, examined, and case discussed with day-time resident. patient seen this afternoon. Patient is able to tell me its November, cannot say the name of the President, he is aware at the hospital. Psych has determined p brea has capacity to make decisions. Social and supportive employment case manager working on discharge planning at this time. Social work working on longterm level of care. Will need to f/u in regards to discharge planning given patient has gait disturbance. Patient was seen and evaluated by podiatry, help appreciated, Assessment/Plan 1) History of chronic alcohol abuse Assessment/Plan * Patient has completed ativan taper. * Patient is not in the window for withdrawal * Serum alcohol level: < 10 * Upon review of prior records, patient is known to present with altered mental status 2/2 alcohol intoxication * UDS: Negative * Vitamin B12: 511m Folate levels: > 20 * c/w Thiamine, folic acid, multivitamin * Ammonia is low 2) Deconditioning Assessment/Plan * PT walked with patient 04/23 -atbud needs continued PT to regain independent ambulation without assistance/RW. * Per case management, patient will not be accepted to a homeless half-way without ability to ambulate independently without a walker * Social work attempting to secure longterm placement * CT head (04/04): Chronic microvascular ischemic changes. 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 B/l basal ganglia and R thalamic lacunar infarcts. Focal encephalomalacia in the R duenas radiata. * C/w physical therapy given recommendation for [facility]. Patient does not have insurance to make him eligible for [facility]. * Continues to need rolling walker regarding gait; therefore not eligible for [facility] 3) Hypertension Assessment/Plan * Patient has not prior history of noncompliance. * Imdur 20mg PO daily * Lisinopril 10mg PO QDaily * Amlodipine 10mg PO QDaily * Chlorthalidone 25mg PO daily * d/c Hydralazine decreased 25mg PO Q8H 04/21/18 * Secondary HTN workup: * Renal artery duplex 04/05/2018: RIGHT: Findings suggestive of hemodynamically significant stenosis of the right renal artery, proximal segment. LEFT: No definite hemodynamically significant stenosis involving the renal arteries as visualized. * Plasma metanephrines: f/u * Aldosterone/Plasma renin activity: f/u 4) Lower extremity swelling Resolved) * No evidence of cellulitis, lower extremities show blanchable erythema * Completed IV abx to cover for cellulitis and pneumonia * Patient's case consulted with podiatry during hospitalization. * Foot Xray (04/03): Degenerative changes of the forefoot. No acute fractures, subluxations. B/l hammertoe deformities are identified diffusely. Severe hallux valgus deformity noted. Large plantar calcaneal spurs b/l. 5) Atelectasis; possible pneumonia * Patient has completed IV abx to cover for pnuemonia * Legionella, s. pneumonia, influenza: Negative, Mycoplasma Ig.19 (normal: < 0.9), Mycoplasma IgM: negative * CXR (04/04): Limited patchy atelectasis medial right base with remaining lung liu clear. Stable prominent cardiac silhouette. * CT chest (04/04): Small to medium size right-sided effusion and mild right basilar atelectasis. Small opacities are also present within the middle lobe possibly representing rounded atelectasis and/or infiltrates. There also appears to be some mild dependent atelectasis in the left lung base. Trace right-sided effusion. Minimal linear scarring changes left lingular region. Suspect mild underlying pulmonary venous congestive changes. There also appears to be a few scattered parenchymal calcifications likely representing granulomata within both lower lung liu as well. Cardiomegaly. * CXR PA/Lateral 04/09 - Mild bibasilar atelectasis and/or infiltrate changes seen in the right mid to lower lung field with suspected mild left basilar atelectais * Mucinex 600mg PO BID 6) Scabies (resolved) * Completed 2 doses of Permethrin during hospitalization * Contact precaution d/c' * Benadryl cream BID prn for itchiness; patient advised to stop scratching. Patient has poor nail hygiene * Vitamin A and D TOP BID for dry skin 7) HX of CHF with reserved EF: * Cardiology, Dr. Dobbs consulted * Continue current regimen for BP control - hydralazine 100 PO q8, norvasc 10 PO daily, lisinopril 40 PO daily, norvasc 10mg PO daily * No additional echo indicated on this admission as patient is not showing symptoms of heart failure * ProBNP: 29,300- increased from previous admissions * Previous Echo (08/2017): LV normal size, borderline LV hypertrophy, Systolic function borderline, mild septal hypokinesis, LVEF >50% * No beta jessica given side effect of bronchospasm * Crestor 5mg PO daily * Aspirin 81mg Po daily 8) COPD exacerbation, resolved: * Pulmonology, Dr. Lebron consulted * Atrovent INH Q6 PRN * Patient is stable, O2 % saturation: 95-100% on room air 9) JASWANT, resolved: * BUN/ Cr today 04/13: 40/0.8 * Nephrology, Dr. Lizarraga consulted * Avoid nephrotoxic agents (NSAIDS, phosphate enema) * Renal artery duplex - possible significant GLADIS - see above * Renal ultrasound (04/05): non-obstructive left nephrolithiasis. Otherwise normal ultrasound 10) Prophylaxis/diet: * DVT PPX: lovenox 40mg subqdaily * GI: Protonix 40mg IVP daily * HHD Disposition: patient is medically optimized. patient will need physical therapy given gait imbalance and deconditioning; he is able to walk only with rolling walker however he is without insurance and cannot go to half-way given his need for device.
[2018-04-24] MEDS: Pantoprazole 40 mg EC Tab PO SCH (10:14)
[2018-04-24] MEDS: Lactobacillus Acidophilus 500 MU Cap PO SCH ×2 (10:14→17:06)
[2018-04-24] MEDS: Enoxaparin 40 mg Syringe SC SCH (10:14)
[2018-04-24] MEDS: guaiFENesin 600 mg ER Tab PO SCH ×2 (10:14→17:06)
[2018-04-24] MEDS: Vitamins A & D Oint UD Foilpak TOP SCH ×2 (10:17→17:06)
--- NOTE | 2018-04-24 15:10 | CP.PCM.PCO ---
Physician Communication Note - Physician Communication Note Physician Communication Note: Psych will sign off
--- NOTE | 2018-04-24 17:24 | CP.PCM.CON ---
History of Present Illness - History of Present Illness History of Present Illness: Consult note for Dr. Gomez 58 M w/ PMHx of hypertension, diastolic heart failure, and CVA (left ROADSIDE MECHANIC infarct) seen at bedside for elongated hallucal nails b/l and interdigital maceration. Patient is seen to be sleeping at time of visit and is a very poor historian upon arousal. He states that his left hallucal nail causes him pain. He denies any further pedal complaints at this time. Denies any recent N/V/F/C/CP/SOB/D Review of Systems - Review of Systems All systems: reviewed and no additional remarkable complaints except Review of Systems: as per HPI Past Patient History - Infectious Disease Hx of Infectious Diseases: None - Tetanus Immunizations Tetanus Immunization: Unknown - Past Medical History & Family History Past Medical History?: Yes - Past Social History Smoking Status: Current Some Days Smoker - CARDIAC Hx Congestive Heart Failure: No Hx Hypercholesterolemia: No Hx Hypertension: Yes - PULMONARY Hx Chronic Obstructive Pulmonary Disease (COPD): No - NEUROLOGICAL Hx Seizures: No - HEENT Hx HEENT Problems: No - RENAL Hx Chronic Kidney Disease: No - ENDOCRINE/METABOLIC Hx Hypothyroidism: No - HEMATOLOGICAL/ONCOLOGICAL Hx Human Immunodeficiency Virus (HIV): No - INTEGUMENTARY Hx Dermatological Problems: No - MUSCULOSKELETAL/RHEUMATOLOGICAL Hx Arthritis: No Hx Rheumatoid Arthritis: No - GASTROINTESTINAL Hx Gastrointestinal Disorders: No - GENITOURINARY/GYNECOLOGICAL Hx Sexually Transmitted Disorders: No - PSYCHIATRIC Hx Substance Use: No - SURGICAL HISTORY Hx Surgeries: No - ANESTHESIA Hx Anesthesia: No Hx Anesthesia Reactions: No Meds Allergies/Adverse Reactions: Allergies Allergy/AdvReac Type Severity Reaction Status Date / Time No Known Allergies Allergy Verified 04/03/18 17:27 - Medications Medications: Current Medications Amlodipine Besylate (Norvasc) 10 mg PO DAILY [facility] Last Admin: 04/24/18 10:14 Dose: 10 mg Aspirin (Ecotrin) 81 mg PO DAILY [facility] Last Admin: 04/24/18 10:14 Dose: 81 mg Chlorthalidone (Hygroton) 25 mg PO DAILY [facility] Last Admin: 04/24/18 10:15 Dose: 25 mg Enoxaparin Sodium (Lovenox) 40 mg SC DAILY [facility] Last Admin: 04/24/18 10:14 Dose: 40 mg Guaifenesin (Mucinex La) 600 mg PO BID [facility] Last Admin: 04/24/18 17:06 Dose: 600 mg Isosorbide Mononitrate (Ismo) 20 mg PO DAILY [facility] Last Admin: 04/24/18 10:14 Dose: 20 mg Lactic Acid (Lac-Hydrin 12% Lotion (225 G)) 0 gm EXT Q12H [facility] Last Admin: 04/24/18 11:47 Dose: 1 applic Lactobacillus Acidophilus (Bacid Acidophilus) 1 cap PO BID [facility] Last Admin: 04/24/18 17:06 Dose: 1 cap Lisinopril (Zestril) 40 mg PO DAILY [facility] Last Admin: 04/24/18 10:14 Dose: 40 mg Pantoprazole Sodium (Protonix Ec Tab) 40 mg PO DAILY [facility] Last Admin: 04/24/18 10:14 Dose: 40 mg Rosuvastatin Calcium (Crestor) 5 mg PO HS [facility] Last Admin: 04/23/18 21:46 Dose: 5 mg Vitamin A (Vitamin A & D Oint Ud Foilpak) 1 ea TOP BID [facility] Last Admin: 04/24/18 17:06 Dose: 1 ea Zinc Acetate/Diphenhydramine (Benadryl 1% Zinc Acetate -0.1%) 0 cre TOP BID PRN PRN Reason: Itching / Pruritus Last Admin: 04/10/18 17:07 Dose: 1 appl Physical Exam - Constitutional Appears: Non-toxic, No Acute Distress, Confused - Extremities Exam Additional comments: LE focused exam: Vasc: DP/PT pulses fully palpable 2/4 b/l. Skin temperature warm to warm from proximal to distal WNL. CFT < 3 seconds to all digits. No edema noted b/l Neuro: Epicritic and protective sensation grossly intact b/l Derm: Elongated, dystrophic hallucal nails noted b/l as well as left second nail. Skin is noted to be dirty and xerotic. Interdigital maceration noted to all interspaces b/l without evidence of fissuring. Otherwise, no open lesions, wounds, maceration, xerosis, abnormal pigmentation or abnormal growths noted MSK: POP noted to b/l hallucal nails. Rigid hammertoe contractures noted to lesser digits of b/l feet. - Neurological Exam Neurological exam: Alert - Psychiatric Exam Psychiatric exam: Flat Affect, Normal Affect, Normal Mood Results - Vital Signs Recent Vital Signs: Last Vital Signs Temp 97.4 F L 04/24/18 07:37 Pulse 83 04/24/18 07:37 Resp 20 04/24/18 07:37 BP 122/61 04/24/18 07:37 Pulse Ox 98 04/24/18 07:37 - Labs Result Diagrams: 04/24/18 07:11 04/24/18 07:11 Labs: Laboratory Results - last 24 hr 04/24/18 04/24/18 07:11 07:11 WBC 6.5 RBC 3.94 L Hgb 11.6 L Hct 34.9 L MCV 88.7 MCH 29.5 MCHC 33.3 RDW 15.3 H Plt Count 299 MPV 8.8 Neut % (Auto) 57.2 Lymph % (Auto) 19.6 L [place] % (Auto) 19.2 H Eos % (Auto) 3.5 Baso % (Auto) 0.5 Neut # (Auto) 3.7 Lymph # (Auto) 1.3 [place] # (Auto) 1.3 H Eos # (Auto) 0.2 Baso # (Auto) 0.0 Sodium 134 Potassium 4.5 Chloride 92 L Carbon Dioxide 30 Anion Gap 16 BUN 59 H Creatinine 1.5 Est GFR ( Amer) 58 Est GFR (Non-Af Amer) 48 Random Glucose 97 Calcium 9.3 Total Bilirubin 0.3 AST 26 ALT 30 Alkaline Phosphatase 89 Total Protein 7.2 Albumin 3.4 L Globulin 3.9 Albumin/Globulin Ratio 0.9 L Assessment & Plan - Assessment and Plan (Free Text) Assessment: 58 M w/ PMHx of hypertension, diastolic heart failure, and CVA (left ROADSIDE MECHANIC infarct) seen at bedside for elongated hallucal nails b/l and interdigital macer ation. Plan: Patient seen and evaluated Plan discussed with Dr. Jason Sotomayor, absent leukocytosis Foot xray: Degenerative changes primarily in the forefoot as discussed above. Bilateral hammertoe deformities are identified diffusely. Severe hallux valgus deformities are noted. Large plantar calcaneal spurs bilaterally. Hallucal nails trimmed to appropriate length using nail nippers without incident Betadine soaked gauze placed into all interdigital spaces and feet wrapped with kirlix No plan for surgical intervention at this time Podiatry will continue to follow while patient in house - Date & Time Date: 04/24/18 Time: 17:32
[2018-04-25] MEDS: Ammonium Lactate 12% Lotion (225 g) EXT SCH ×2 (00:20→12:00)
[2018-04-25 06:56] LABS: BASO % 0.5 % (0.0-2.0); EOS # 0.3 K/uL (0.0-0.7); EOS % 4.2 % (0.0-4.0); HEMOGLOBIN 11.4 g/dL (12.0-18.0); LYMPH # 1.2 K/uL (1.0-4.3); LYMPH % 18.4 % (20.0-40.0); MEAN CELL VOLUME 88.8 fL (80.0-94.0); MEAN CORPUSCULAR HEMOGLOBIN 28.6 pg (27.0-31.0); MEAN CORPUSCULAR HGB CONC 32.2 g/dL (33.0-37.0); MEAN PLATELET VOLUME 8.4 fL (7.2-11.7); MONO # 1.3 K/uL (0.0-0.8); MONO % 19.9 % (0.0-10.0); NEUT # 3.6 K/uL (1.8-7.0); NRBC % 0.1 % (0.0-2.0); RBC 3.98 Mil/uL (4.40-5.90); RED CELL DISTRIBUTION WIDTH 15.3 % (11.5-14.5); WHITE BLOOD COUNT 6.3 K/uL (4.8-10.8)
[2018-04-25 07:08] LABS: ALBUMIN 3.6 g/dL (3.5-5.0); CALCIUM 9.2 mg/dl (8.6-10.4)
--- NOTE | 2018-04-25 07:55 | CP.PCM.PN ---
<Buzz Nash - Last Filed: 04/25/18 13:34> Subjective - Date & Time of Evaluation Date of Evaluation: 04/25/18 Time of Evaluation: 07:55 - Subjective Subjective: Hospitalist Service Pt seen and examined at bedside. Pt denies any acute events overnight, denies cp sob fc nv. Objective - Vital Signs/Intake and Output Vital Signs (last 24 hours): Temp Pulse Resp BP Pulse Ox 97.9 F 82 20 100/62 97 04/24/18 23:46 04/24/18 23:46 04/24/18 23:46 04/24/18 23:46 04/24/18 23:46 Intake and Output: 04/25/18 04/25/18 06:59 18:59 Intake Total 640 Output Total 600 Balance 40 - Medications Medications: Current Medications Amlodipine Besylate (Norvasc) 10 mg PO DAILY [facility] Last Admin: 04/24/18 10:14 Dose: 10 mg Aspirin (Ecotrin) 81 mg PO DAILY [facility] Last Admin: 04/24/18 10:14 Dose: 81 mg Chlorthalidone (Hygroton) 25 mg PO DAILY [facility] Last Admin: 04/24/18 10:15 Dose: 25 mg Enoxaparin Sodium (Lovenox) 40 mg SC DAILY [facility] Last Admin: 04/24/18 10:14 Dose: 40 mg Guaifenesin (Mucinex La) 600 mg PO BID [facility] Last Admin: 04/24/18 17:06 Dose: 600 mg Isosorbide Mononitrate (Ismo) 20 mg PO DAILY [facility] Last Admin: 04/24/18 10:14 Dose: 20 mg Lactic Acid (Lac-Hydrin 12% Lotion (225 G)) 0 gm EXT Q12H [facility] Last Admin: 04/25/18 00:20 Dose: 1 applic Lactobacillus Acidophilus (Bacid Acidophilus) 1 cap PO BID [facility] Last Admin: 04/24/18 17:06 Dose: 1 cap Lisinopril (Zestril) 40 mg PO DAILY [facility] Last Admin: 04/24/18 10:14 Dose: 40 mg Pantoprazole Sodium (Protonix Ec Tab) 40 mg PO DAILY [facility] Last Admin: 04/24/18 10:14 Dose: 40 mg Rosuvastatin Calcium (Crestor) 5 mg PO HS [facility] Last Admin: 04/24/18 21:34 Dose: 5 mg Vitamin A (Vitamin A & D Oint Ud Foilpak) 1 ea TOP BID [facility] Last Admin: 04/24/18 17:06 Dose: 1 ea Zinc Acetate/Diphenhydramine (Benadryl 1% Zinc Acetate -0.1%) 0 cre TOP BID PRN PRN Reason: Itching / Pruritus Last Admin: 04/10/18 17:07 Dose: 1 appl - Labs Labs: 04/25/18 06:40 04/25/18 06:40 PT 16.4 SECONDS (9.7-12.2) H 04/06/18 07:35 INR 1.5 04/06/18 07:35 APTT 28 SECONDS (21-34) 04/06/18 07:35 - Additional Findings Additional findings: - Constitutional Appears: Well, Non-toxic, Cachectic - Eye Exam Eye Exam: EOMI, Normal appearance - Neck Exam Neck Exam: Normal Inspection - Respiratory Exam Respiratory Exam: Clear to Ausculation Bilateral, NORMAL BREATHING PATTERN - Cardiovascular Exam Cardiovascular Exam: REGULAR RHYTHM - GI/Abdominal Exam GI & Abdominal Exam: Soft, Normal Bowel Sounds - Neurological Exam Neurological Exam: Alert, Awake, Oriented x2 - Psychiatric Exam Psychiatric exam: Normal Affect, Normal Mood - Skin Skin Exam: Dry, Intact, Normal Color, Warm Assessment and Plan - Assessment and Plan (Free Text) Assessment: 58 year old male with PMHx of HTN, ETOH abuse, CHF, and CVA presented to the ED for foot pain and with altered mental status. Patient currently stable on medicine floor. Left Foot Hammertoes and Heel Spurs: - Pt ambulates with help of rolling walker. Tolerating PT. - Dressing changed today, betadine gauses applied to interphalangeal spaces - No evidence of cellulitis, lower extremities show blanchable erythema - Doxycycline 100 mg IV Q12H and Ceftriaxone 1mg IV Q24H finished - Lower extremities venous doppler: negative for DVT - Blood culture (04/04): No growth x 5 days - Podiatry, Dr. Gomez consulted. Help appreciated. betadine soak leonidas interphalangel toe spaces w/ krillex wrap no sx intervention at this time - Foot Xray (04/03): Degenerative changes of the forefoot. No acute fractures, subluxations. B/l hammertoe deformities are identified diffusely. Severe hallux valgus deformity noted. Large plantar calcaneal spurs b/l. - PT/ Ot recommended for gait training Hypertension, uncontrolled - Patient not compliant with previous discharge meds. Given decreased mental capacity at baseline, it is unlikely he will be capable of taking his daily medications without assistance. - Has been controlled with current regimen, med adjustments made during hospital course - BP Meds - --Imdur 20mg PO daily - --Lisinopril 10mg PO daily - --Amlodipine 10mg PO daily - --Hydralazine decreased from 75 mg PO TID to 50 mg BID. Continue to taper and monitor BP. - --Chlorthalidone 25 mg PO daily added - Secondary HTN workup: - -- Renal artery duplex 04/05/2018: RIGHT: Findings suggestive of hemodynamically significant stenosis of the right renal artery, proximal segment. LEFT: No definite hemodynamically significant stenosis involving the renal arteries as visualized. - --> Dr. Lizarraga has been following this patient and does not feel that this is significant GLADIS that would require intervention/stent. HTN to continue to be managed medically. - --Plasma metanephrines WNL - --Aldosterone/Plasma renin activity: Aldosterone <1, Renin 12.25 - ASA 81 mg PO daily - Crestor 5 mg PO HS History of chronic alcohol abuse: - Monitor for signs of withdrawal - Serum alcohol level: < 10 - Upon review of prior records, patient is known to present with altered mental status 2/2 alcohol intoxication - UDS: Negative - Ativan taper finished on 04/09 - --Continue Ativan 1mg IV Q6 PRN for withdrawal sx - Vitamin B12: 511m Folate levels: > 20 - Thiamine, folic acid, multivitamin - ammonia level rechecked 04/11 - < 9 - CT head (04/04): Chronic microvascular ischemic changes. 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 B/l basal ganglia and R thalamic lacunar infarcts. Focal encephalomalacia in the R duenas radiata. Pleural Effusion / Possible Pulmonary Infiltrates - Pulmonology, Dr. Lebron consulted - Abx Course finished - (Doxycycline 100 mg IV Q12H, Ceftriaxone 1mg IV Q24H) - Atrovent INH Q6 PRN - Legionella, s. pneumonia, influenza: Negative - Mycoplasma Ig.19 (normal: < 0.9), Mycoplasma IgM: negative - CXR (04/04): Limited patchy atelectasis medial right base with remaining lung liu clear. Stable prominent cardiac silhouette. - CT chest (04/04): Small to medium size right-sided effusion and mild right basilar atelectasis. Small opacities are also present within the middle lobe possibly representing rounded atelectasis and/or infiltrates. There also appears to be some mild dependent atelectasis in the left lung base. Trace right-sided effusion. Minimal linear scarring changes left lingular region. Suspect mild underlying pulmonary venous congestive changes. There also appears to be a few scattered parenchymal calcifications likely representing granulomata within both lower lung liu as well. Cardiomegaly. - CXR PA/Lateral 04/09 - Mild bibasilar atelectasis and/or infiltrate changes seen in the right mid to lower lung field with suspected mild left basilar atelectasis HX of CHF with preserved EF: - Cardiology, Dr. Dobbs consulted - Continue current regimen for BP control - 1500 mL/day fluid restricted diet - ProBNP: 29,300- increased from previous admissions - Previous Echo (08/2017): LV normal size, borderline LV hypertrophy, Systolic function borderline, mild septal hypokinesis, LVEF >50% - -- No additional echo indicated on this admission as patient is not showing symptoms of heart failure COPD exacerbation-resolved: - Pulmonology, Dr. Lebron consulted - Duoneb Q6 PRN - Atrovent INH Q6 PRN - Patient is stable, O2 % saturation: 95-100% on room air JASWANT- resolved: - BUN/ Cr remain stable - Nephrology, Dr. Lizarraga consulted - Avoid nephrotoxic agents (NSAIDS, phosphate enema) - Renal artery duplex - possible significant GLADIS - see above - Renal ultrasound (04/05): non-obstructive left nephrolithiasis. Otherwise normal ultrasound Scabies - Resolved - Off contact precautions - Benadryl cream BID prn for pruritis - Vitamin A and D TOP BID Prophylaxis/diet: - DVT: Lovenox 40units qd, SCDs - GI: Protonix 40mg IVP daily Dispo: Pending Medicaid approval. CM helping to secure shelter placement. d/w Dr Kaiden Nash PGY1 <Dominique Richey V - Last Filed: 04/29/18 21:02> Objective - Vital Signs/Intake and Output Vital Signs (last 24 hours): Temp Pulse Resp BP Pulse Ox 98.1 F 84 20 104/63 98 04/29/18 15:00 04/29/18 15:00 04/29/18 15:00 04/29/18 15:00 04/29/18 15:00 Intake and Output: 04/29/18 04/30/18 18:59 06:59 Intake Total 600 Balance 600 - Medications Medications: Current Medications Amlodipine Besylate (Norvasc) 10 mg PO DAILY [facility] Last Admin: 04/29/18 10:17 Dose: 10 mg Aspirin (Ecotrin) 81 mg PO DAILY [facility] Last Admin: 04/29/18 10:17 Dose: 81 mg Enoxaparin Sodium (Lovenox) 40 mg SC DAILY [facility] Last Admin: 04/29/18 10:17 Dose: 40 mg Guaifenesin (Mucinex La) 600 mg PO BID [facility] Last Admin: 04/29/18 17:50 Dose: 600 mg Isosorbide Mononitrate (Ismo) 20 mg PO DAILY [facility] Last Admin: 04/29/18 10:17 Dose: 20 mg Lactic Acid (Lac-Hydrin 12% Lotion (225 G)) 0 gm EXT Q12H [facility] Last Admin: 04/29/18 14:12 Dose: 1 applic Lactobacillus Acidophilus (Bacid Acidophilus) 1 cap PO BID [facility] Last Admin: 04/29/18 18:00 Dose: 1 cap Lisinopril (Zestril) 40 mg PO DAILY [facility] Last Admin: 04/29/18 10:17 Dose: 40 mg Rosuvastatin Calcium (Crestor) 5 mg PO HS [facility] Last Admin: 04/28/18 21:30 Dose: 5 mg Vitamin A (Vitamin A & D Oint Ud Foilpak) 1 ea TOP BID [facility] Last Admin: 04/29/18 17:50 Dose: 1 ea - Labs Labs: 04/25/18 06:40 04/29/18 11:00 PT 16.4 SECONDS (9.7-12.2) H 04/06/18 07:35 INR 1.5 04/06/18 07:35 APTT 28 SECONDS (21-34) 04/06/18 07:35 Attending/Attestation - Attestation I have personally seen and examined this patient.: Yes I have fully participated in the care of the patient.: Yes I have reviewed all pertinent clinical information, including history, physical exam and plan: Yes Notes (Text): This is late computer entry for 04/25/18. Patient seen, examined, and case discussed with medical practice assistant. Agree with assessment and plan as written by the resident. Pending discharge planning
[2018-04-25] MEDS: Enoxaparin 40 mg Syringe SC SCH (09:30)
[2018-04-25] MEDS: Lactobacillus Acidophilus 500 MU Cap PO SCH ×2 (09:30→17:48)
[2018-04-25] MEDS: Pantoprazole 40 mg EC Tab PO SCH (09:39)
[2018-04-25] MEDS: guaiFENesin 600 mg ER Tab PO SCH ×2 (09:39→17:48)
[2018-04-25] MEDS: Vitamins A & D Oint UD Foilpak TOP SCH ×2 (09:57→18:00)
--- NOTE | 2018-04-25 16:28 | CP.PCM.PN ---
Subjective - Date & Time of Evaluation Date of Evaluation: 04/25/18 Time of Evaluation: 16:24 - Subjective Subjective: Podiatry Progress Note for Dr. Gomez 58M seen at bedside for interdigital maceration. Patient does not respond to many of the questions asked of him but does state that his feet feel better. Per nursing, no acute overnight events or new pedal issues. Objective - Vital Signs/Intake and Output Vital Signs (last 24 hours): Temp Pulse Resp BP Pulse Ox 98.0 F 86 20 90/55 L 98 04/25/18 16:00 04/25/18 16:00 04/25/18 16:00 04/25/18 16:00 04/25/18 16:00 Intake and Output: 04/25/18 04/25/18 06:59 18:59 Intake Total 640 320 Output Total 600 Balance 40 320 - Medications Medications: Current Medications Amlodipine Besylate (Norvasc) 10 mg PO DAILY [facility] Last Admin: 04/25/18 09:39 Dose: 10 mg Aspirin (Ecotrin) 81 mg PO DAILY [facility] Last Admin: 04/25/18 09:40 Dose: 81 mg Chlorthalidone (Hygroton) 25 mg PO DAILY [facility] Last Admin: 04/25/18 09:30 Dose: 25 mg Enoxaparin Sodium (Lovenox) 40 mg SC DAILY [facility] Last Admin: 04/25/18 09:30 Dose: 40 mg Guaifenesin (Mucinex La) 600 mg PO BID [facility] Last Admin: 04/25/18 09:39 Dose: 600 mg Isosorbide Mononitrate (Ismo) 20 mg PO DAILY [facility] Last Admin: 04/25/18 09:56 Dose: 20 mg Lactic Acid (Lac-Hydrin 12% Lotion (225 G)) 0 gm EXT Q12H [facility] Last Admin: 04/25/18 12:00 Dose: 1 applic Lactobacillus Acidophilus (Bacid Acidophilus) 1 cap PO BID [facility] Last Admin: 04/25/18 09:30 Dose: 1 cap Lisinopril (Zestril) 40 mg PO DAILY [facility] Last Admin: 04/25/18 09:40 Dose: 40 mg Pantoprazole Sodium (Protonix Ec Tab) 40 mg PO DAILY [facility] Last Admin: 04/25/18 09:39 Dose: 40 mg Rosuvastatin Calcium (Crestor) 5 mg PO HS [facility] Last Admin: 04/24/18 21:34 Dose: 5 mg Vitamin A (Vitamin A & D Oint Ud Foilpak) 1 ea TOP BID [facility] Last Admin: 04/25/18 09:57 Dose: 1 ea - Labs Labs: 04/25/18 06:40 04/25/18 06:40 PT 16.4 SECONDS (9.7-12.2) H 04/06/18 07:35 INR 1.5 04/06/18 07:35 APTT 28 SECONDS (21-34) 04/06/18 07:35 - Constitutional Appears: Well, Non-toxic, No Acute Distress, Confused - Extremities Exam Additional comments: LE focused exam: Vasc: DP/PT pulses fully palpable 2/4 b/l. Skin temperature warm to warm from proximal to distal WNL. CFT < 3 seconds to all digits. No edema noted b/l Neuro: Epicritic and protective sensation grossly intact b/l Derm: Skin is noted to be dirty and xerotic. Interdigital maceration noted to be greatly improved in all interdigital spaces. Otherwise, no open lesions, wounds, maceration, xerosis, abnormal pigmentation or abnormal growths noted MSK: Rigid hammertoe contractures and b/l HAV deformities noted to digits of b/l feet. - Neurological Exam Neurological Exam: Alert, Awake - Psychiatric Exam Psychiatric exam: Normal Affect, Normal Mood Assessment and Plan - Assessment and Plan (Free Text) Assessment: 58M seen at bedside for interdigital maceration Plan: Patient seen and evaluated Plan discussed with Dr. Gomez Afebrile, absent leukocytosis Foot xray: Degenerative changes primarily in the forefoot as discussed above. Bilateral hammertoe deformities are identified diffusely. Severe hallux valgus deformities are noted. Large plantar calcaneal spurs bilaterally.Betadine soaked gauze placed into all interdigital spaces and feet wrapped with kirlix No plan for surgical intervention at this time Podiatry will continue to follow while patient in house
--- NOTE | 2018-04-25 16:41 | CARD ---
APPROVED REPORT Date of service: 04/10/2018 EKG Measurement Heart [id number] <Conclusion> Sinus tachycardia Left ventricular hypertrophy with repolarization abnormality Abnormal ECG
[2018-04-26] MEDS: Ammonium Lactate 12% Lotion (225 g) EXT SCH ×2 (00:20→12:30)
--- NOTE | 2018-04-26 07:29 | CP.PCM.PN ---
<Jhonny Arreola M - Last Filed: 04/26/18 16:34> Subjective - Date & Time of Evaluation Date of Evaluation: 04/26/18 Time of Evaluation: 10:00 - Subjective Subjective: PGY 1 Medicine Progress Note for Hospitalist Dr. Richey. Patient seen and examined at bedside. No overnight events reported. Patient laying in bed comfortably, no acute distress. Patient denies having any complaints. Patient denies chest pain, SOB, abdominal pain, nausea, vomiting, headaches, vision changes. Objective - Vital Signs/Intake and Output Vital Signs (last 24 hours): Temp Pulse Resp BP Pulse Ox 97.9 F 73 20 114/74 98 04/25/18 23:47 04/25/18 23:47 04/25/18 23:47 04/25/18 23:47 04/25/18 23:47 Intake and Output: 04/26/18 04/26/18 06:59 18:59 Intake Total 700 Balance 700 - Medications Medications: Current Medications Amlodipine Besylate (Norvasc) 10 mg PO DAILY [facility] Last Admin: 04/25/18 09:39 Dose: 10 mg Aspirin (Ecotrin) 81 mg PO DAILY [facility] Last Admin: 04/25/18 09:40 Dose: 81 mg Chlorthalidone (Hygroton) 25 mg PO DAILY [facility] Last Admin: 04/25/18 09:30 Dose: 25 mg Enoxaparin Sodium (Lovenox) 40 mg SC DAILY [facility] Last Admin: 04/25/18 09:30 Dose: 40 mg Guaifenesin (Mucinex La) 600 mg PO BID [facility] Last Admin: 04/25/18 17:48 Dose: 600 mg Isosorbide Mononitrate (Ismo) 20 mg PO DAILY [facility] Last Admin: 04/25/18 09:56 Dose: 20 mg Lactic Acid (Lac-Hydrin 12% Lotion (225 G)) 0 gm EXT Q12H [facility] Last Admin: 04/26/18 00:20 Dose: 1 applic Lactobacillus Acidophilus (Bacid Acidophilus) 1 cap PO BID [facility] Last Admin: 04/25/18 17:48 Dose: 1 cap Lisinopril (Zestril) 40 mg PO DAILY [facility] Last Admin: 04/25/18 09:40 Dose: 40 mg Pantoprazole Sodium (Protonix Ec Tab) 40 mg PO DAILY [facility] Last Admin: 04/25/18 09:39 Dose: 40 mg Rosuvastatin Calcium (Crestor) 5 mg PO HS [facility] Last Admin: 04/25/18 21:54 Dose: 5 mg Vitamin A (Vitamin A & D Oint Ud Foilpak) 1 ea TOP BID [facility] Last Admin: 04/25/18 18:00 Dose: Not Given - Labs Labs: 04/25/18 06:40 04/25/18 06:40 PT 16.4 SECONDS (9.7-12.2) H 04/06/18 07:35 INR 1.5 04/06/18 07:35 APTT 28 SECONDS (21-34) 04/06/18 07:35 - Constitutional Appears: No Acute Distress, Cachectic - Head Exam Head Exam: ATRAUMATIC, NORMAL INSPECTION, NORMOCEPHALIC - Eye Exam Eye Exam: Normal appearance - ENT Exam ENT Exam: Mucous Membranes Dry - Respiratory Exam Respiratory Exam: Clear to Ausculation Bilateral, NORMAL BREATHING PATTERN. absent: Rales, Rhonchi, Wheezes - Cardiovascular Exam Cardiovascular Exam: +S1, +S2 - Extremities Exam Extremities Exam: Full ROM. absent: Calf Tenderness, Pedal Edema Additional comments: Feet covered in dressing due to interdigit maceration. Per podiatry: Skin is noted to be dirty and xerotic. Interdigital maceration noted to be greatly improved in all interdigital spaces. Otherwise, no open lesions, wounds, maceration, xerosis, abnormal pigmentation or abnormal growths noted - Neurological Exam Neurological Exam: Alert, Awake - Psychiatric Exam Psychiatric exam: Normal Affect, Normal Mood - Skin Skin Exam: Dry, Intact, Normal Color, Warm Assessment and Plan - Assessment and Plan (Free Text) Assessment: 58 year old male with PMHx of HTN, ETOH abuse, CHF, and CVA presented to the ED for foot pain and with altered mental status. Patient currently stable on medicine floor. JASWANT - initial admision, patient in JASWANT, resolved, now returned - likely 2/2 dehydration - BUN/ Cr elevated in AM 64/1.4, after remaining stable in 40/low 1s - Nephrology, Dr. Lizarraga already on board - Avoid nephrotoxic agents (NSAIDS, phosphate enema) - will hold chlorthiladone 25 mg daily - Will hold fluids due to underly CHF, will encourage gentle PO hydration - Renal artery duplex - possible significant GLADIS - see above - Renal ultrasound (04/05): non-obstructive left nephrolithiasis. Otherwise normal ultrasound Left Foot Hammertoes and Heel Spurs: - Pt ambulates with help of rolling walker. Tolerating PT. - No evidence of cellulitis, lower extremities show blanchable erythema - Podiatry, Dr. Gomez consulted. Help appreciated. betadine soak leonidas interphalangel toe spaces w/ krillex wrap no sx intervention at this time - Doxycycline 100 mg IV Q12H and Ceftriaxone 1mg IV Q24H finished - Blood culture (04/04): No growth x 5 days - Lower extremities venous doppler: negative for DVT - Foot Xray (04/03): Degenerative changes of the forefoot. No acute fractures, subluxations. B/l hammertoe deformities are identified diffusely. Severe hallux valgus deformity noted. Large plantar calcaneal spurs b/l. - PT/ OT recommended for gait training Hypertension, uncontrolled - Patient not compliant with previous discharge meds. Given decreased mental capacity at baseline, it is unlikely he will be capable of taking his daily medications without assistance. - Has been controlled with current regimen, med adjustments made during hospital course - BP Meds - --Imdur 20mg PO daily - --Lisinopril 10mg PO daily - --Amlodipine 10mg PO daily - --Hydralazine decreased from 75 mg PO TID to 50 mg BID. Continue to taper and monitor BP. - --Chlorthalidone 25 mg PO daily added - Secondary HTN workup: - -- Renal artery duplex 04/05/2018: RIGHT: Findings suggestive of hemodynamically significant stenosis of the right renal artery, proximal segment. LEFT: No definite hemodynamically significant stenosis involving the renal arteries as visualized. - --> Dr. Lizarraga has been following this patient and does not feel that this is significant GLADIS that would require intervention/stent. HTN to continue to be managed medically. - --Plasma metanephrines WNL - --Aldosterone/Plasma renin activity: Aldosterone <1, Renin 12.25 - ASA 81 mg PO daily - Crestor 5 mg PO HS History of chronic alcohol abuse: - Monitor for signs of withdrawal - Serum alcohol level: < 10 - Upon review of prior records, patient is known to present with altered mental status 2/2 alcohol intoxication - UDS: Negative - Ativan taper finished on 04/09 - --Continue Ativan 1mg IV Q6 PRN for withdrawal sx - Vitamin B12: 511m Folate levels: > 20 - Thiamine, folic acid, multivitamin - ammonia level rechecked 04/11 - < 9 - CT head (04/04): Chronic microvascular ischemic changes. 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 B/l basal ganglia and R thalamic lacunar infarcts. Focal encephalomalacia in the R duenas radiata. Pleural Effusion / Possible Pulmonary Infiltrates - Pulmonology, Dr. Lebron consulted - Abx Course finished - (Doxycycline 100 mg IV Q12H, Ceftriaxone 1mg IV Q24H) - Atrovent INH Q6 PRN - Legionella, s. pneumonia, influenza: Negative - Mycoplasma Ig.19 (normal: < 0.9), Mycoplasma IgM: negative - CXR (04/04): Limited patchy atelectasis medial right base with remaining lung liu clear. Stable prominent cardiac silhouette. - CT chest (04/04): Small to medium size right-sided effusion and mild right basilar atelectasis. Small opacities are also present within the middle lobe possibly representing rounded atelectasis and/or infiltrates. There also appears to be some mild dependent atelectasis in the left lung base. Trace right-sided effusion. Minimal linear scarring changes left lingular region. Suspect mild underlying pulmonary venous congestive changes. There also appears to be a few scattered parenchymal calcifications likely representing granulomata within both lower lung liu as well. Cardiomegaly. - CXR PA/Lateral 04/09 - Mild bibasilar atelectasis and/or infiltrate changes seen in the right mid to lower lung field with suspected mild left basilar atelectasis HX of CHF with preserved EF: - Cardiology, Dr. Dobbs consulted - Continue current regimen for BP control - 1500 mL/day fluid restricted diet - ProBNP: 29,300- increased from previous admissions - Previous Echo (08/2017): LV normal size, borderline LV hypertrophy, Systolic function borderline, mild septal hypokinesis, LVEF >50% - -- No additional echo indicated on this admission as patient is not showing symptoms of heart failure COPD exacerbation-resolved - Pulmonology, Dr. Lebron consulted - Duoneb Q6 PRN - Atrovent INH Q6 PRN - Patient is stable, O2 % saturation: 95-100% on room air Scabies - Resolved - Off contact precautions - Benadryl cream BID prn for pruritis - Vitamin A and D TOP BID Prophylaxis/diet: - DVT: Lovenox 40units qd, SCDs - GI: Protonix 40mg IVP daily - discontinued, no longer needed Dispo: Pending Medicaid approval. CM helping to secure long term placement. d/w Dr Kaiden Arreola PGY1 <Dominique Richey V - Last Filed: 04/29/18 20:58> Objective - Vital Signs/Intake and Output Vital Signs (last 24 hours): Temp Pulse Resp BP Pulse Ox 98.1 F 84 20 104/63 98 04/29/18 15:00 04/29/18 15:00 04/29/18 15:00 04/29/18 15:00 04/29/18 15:00 Intake and Output: 04/29/18 04/30/18 18:59 06:59 Intake Total 600 Balance 600 - Medications Medications: Current Medications Amlodipine Besylate (Norvasc) 10 mg PO DAILY [facility] Last Admin: 04/29/18 10:17 Dose: 10 mg Aspirin (Ecotrin) 81 mg PO DAILY [facility] Last Admin: 04/29/18 10:17 Dose: 81 mg Enoxaparin Sodium (Lovenox) 40 mg SC DAILY [facility] Last Admin: 04/29/18 10:17 Dose: 40 mg Guaifenesin (Mucinex La) 600 mg PO BID [facility] Last Admin: 04/29/18 17:50 Dose: 600 mg Isosorbide Mononitrate (Ismo) 20 mg PO DAILY [facility] Last Admin: 04/29/18 10:17 Dose: 20 mg Lactic Acid (Lac-Hydrin 12% Lotion (225 G)) 0 gm EXT Q12H [facility] Last Admin: 04/29/18 14:12 Dose: 1 applic Lactobacillus Acidophilus (Bacid Acidophilus) 1 cap PO BID [facility] Last Admin: 04/29/18 18:00 Dose: 1 cap Lisinopril (Zestril) 40 mg PO DAILY [facility] Last Admin: 04/29/18 10:17 Dose: 40 mg Rosuvastatin Calcium (Crestor) 5 mg PO HS [facility] Last Admin: 04/28/18 21:30 Dose: 5 mg Vitamin A (Vitamin A & D Oint Ud Foilpak) 1 ea TOP BID [facility] Last Admin: 04/29/18 17:50 Dose: 1 ea - Labs Labs: 04/25/18 06:40 04/29/18 11:00 PT 16.4 SECONDS (9.7-12.2) H 04/06/18 07:35 INR 1.5 04/06/18 07:35 APTT 28 SECONDS (21-34) 04/06/18 07:35 Attending/Attestation - Attestation I have personally seen and examined this patient.: Yes I have fully participated in the care of the patient.: Yes I have reviewed all pertinent clinical information, including history, physical exam and plan: Yes Notes (Text): This is late computer entry for 04/26/18. Patient seen, examined, and case discussed with medical records coder. Agree with assessment and plan as written by the resident. Patient's chlorathidone discontinued given elevated creatinine; will encourage PO intake and monitor creatine. Patient is pending placement for long term. Patient is homeless and has an unsteady gait wherein he is needs an assistive device which can not be given at the care home.
[2018-04-26] MEDS: guaiFENesin 600 mg ER Tab PO SCH ×2 (09:15→17:37)
[2018-04-26] MEDS: Enoxaparin 40 mg Syringe SC SCH (09:15)
[2018-04-26] MEDS: Pantoprazole 40 mg EC Tab PO SCH (09:16)
[2018-04-26] MEDS: Lactobacillus Acidophilus 500 MU Cap PO SCH ×2 (09:16→17:37)
[2018-04-26] MEDS: Vitamins A & D Oint UD Foilpak TOP SCH ×2 (10:00→17:37)
[2018-04-27] MEDS: Ammonium Lactate 12% Lotion (225 g) EXT SCH (00:10)
--- NOTE | 2018-04-27 07:27 | CP.PCM.PN ---
<Buzz Nash - Last Filed: 04/27/18 15:57> Subjective - Date & Time of Evaluation Date of Evaluation: 04/27/18 Time of Evaluation: 07:27 - Subjective Subjective: Hospitalist Service Pt seen and examined at bedside. no acute events overnight. Pt denies cp sob fc nv. Pt remains in same mental status. Objective - Vital Signs/Intake and Output Vital Signs (last 24 hours): Temp Pulse Resp BP Pulse Ox 98.3 F 67 18 117/70 99 04/27/18 00:00 04/27/18 00:00 04/27/18 00:00 04/27/18 00:00 04/27/18 00:00 Intake and Output: 04/27/18 04/27/18 06:59 18:59 Intake Total 300 Balance 300 - Medications Medications: Current Medications Amlodipine Besylate (Norvasc) 10 mg PO DAILY [facility] Last Admin: 04/26/18 09:16 Dose: 10 mg Aspirin (Ecotrin) 81 mg PO DAILY [facility] Last Admin: 04/26/18 09:16 Dose: 81 mg Chlorthalidone (Hygroton) 25 mg PO DAILY [facility] Last Admin: 04/26/18 09:16 Dose: 25 mg Enoxaparin Sodium (Lovenox) 40 mg SC DAILY [facility] Last Admin: 04/26/18 09:15 Dose: 40 mg Guaifenesin (Mucinex La) 600 mg PO BID [facility] Last Admin: 04/26/18 17:37 Dose: 600 mg Isosorbide Mononitrate (Ismo) 20 mg PO DAILY [facility] Last Admin: 04/26/18 09:16 Dose: 20 mg Lactic Acid (Lac-Hydrin 12% Lotion (225 G)) 0 gm EXT Q12H [facility] Last Admin: 04/27/18 00:10 Dose: 1 applic Lactobacillus Acidophilus (Bacid Acidophilus) 1 cap PO BID [facility] Last Admin: 04/26/18 17:37 Dose: 1 cap Lisinopril (Zestril) 40 mg PO DAILY [facility] Last Admin: 04/26/18 09:16 Dose: 40 mg Rosuvastatin Calcium (Crestor) 5 mg PO HS [facility] Last Admin: 04/26/18 21:36 Dose: 5 mg Vitamin A (Vitamin A & D Oint Ud Foilpak) 1 ea TOP BID [facility] Last Admin: 04/26/18 17:37 Dose: 1 ea - Labs Labs: 04/25/18 06:40 04/25/18 06:40 PT 16.4 SECONDS (9.7-12.2) H 04/06/18 07:35 INR 1.5 04/06/18 07:35 APTT 28 SECONDS (21-34) 04/06/18 07:35 - Additional Findings Additional findings: - Constitutional Appears: No Acute Distress, Cachectic - Head Exam Head Exam: ATRAUMATIC, NORMAL INSPECTION, NORMOCEPHALIC - Eye Exam Eye Exam: Normal appearance - ENT Exam ENT Exam: Mucous Membranes Dry - Respiratory Exam Respiratory Exam: Clear to Ausculation Bilateral, NORMAL BREATHING PATTERN. absent: Rales, Rhonchi, Wheezes - Cardiovascular Exam Cardiovascular Exam: +S1, +S2 - Extremities Exam Extremities Exam: Full ROM. absent: Calf Tenderness, Pedal Edema Additional comments: Feet covered in dressing due to interdigit maceration. Per podiatry: Skin is noted to be dirty and xerotic. Interdigital maceration noted to be greatly improved in all interdigital spaces. Otherwise, no open lesions, wounds, maceration, xerosis, abnormal pigmentation or abnormal growths noted - Neurological Exam Neurological Exam: Alert, Awake - Psychiatric Exam Psychiatric exam: Normal Affect, Normal Mood - Skin Skin Exam: Dry, Intact, Normal Color, Warm Assessment and Plan - Assessment and Plan (Free Text) Assessment: Assessment and Plan - Assessment and Plan (Free Text) Assessment: 58 year old male with PMHx of HTN, ETOH abuse, CHF, and CVA presented to the ED for foot pain and with altered mental status. Patient currently stable on medicine floor. JASWANT - initial admision, patient in JASWANT, resolved, now returned - likely 2/2 dehydration - BUN/ Cr elevated in AM 64/1.4, after remaining stable in 40/low 1s - Nephrology, Dr. Lizarraga already on board - Avoid nephrotoxic agents (NSAIDS, phosphate enema) - will hold chlorthiladone 25 mg daily - Will hold fluids due to underly CHF, will encourage gentle PO hydration - Renal artery duplex - possible significant GLADIS - see above - Renal ultrasound (04/05): non-obstructive left nephrolithiasis. Otherwise normal ultrasound Left Foot Hammertoes and Heel Spurs: - Pt ambulates with help of rolling walker. Tolerating PT. - No evidence of cellulitis, lower extremities show blanchable erythema - Podiatry, Dr. Gomez consulted. Help appreciated. betadine soak leonidas interphalangel toe spaces w/ krillex wrap no sx intervention at this time - Doxycycline 100 mg IV Q12H and Ceftriaxone 1mg IV Q24H finished - Blood culture (04/04): No growth x 5 days - Lower extremities venous doppler: negative for DVT - Foot Xray (04/03): Degenerative changes of the forefoot. No acute fractures, subluxations. B/l hammertoe deformities are identified diffusely. Severe hallux valgus deformity noted. Large plantar calcaneal spurs b/l. - PT/ OT recommended for gait training Hypertension, uncontrolled - Patient not compliant with previous discharge meds. Given decreased mental capacity at baseline, it is unlikely he will be capable of taking his daily medications without assistance. - Has been controlled with current regimen, med adjustments made during hospital course - BP Meds - --Imdur 20mg PO daily - --Lisinopril 10mg PO daily - --Amlodipine 10mg PO daily - --Hydralazine decreased from 75 mg PO TID to 50 mg BID. Continue to taper and monitor BP. - --Chlorthalidone 25 mg PO daily added - Secondary HTN workup: - -- Renal artery duplex 04/05/2018: RIGHT: Findings suggestive of hemodynamically significant stenosis of the right renal artery, proximal segment. LEFT: No definite hemodynamically significant stenosis involving the renal arteries as visualized. - --> Dr. Lizarraga has been following this patient and does not feel that this is significant GLADIS that would require intervention/stent. HTN to continue to be managed medically. - --Plasma metanephrines WNL - --Aldosterone/Plasma renin activity: Aldosterone <1, Renin 12.25 - ASA 81 mg PO daily - Crestor 5 mg PO HS History of chronic alcohol abuse: - Monitor for signs of withdrawal - Serum alcohol level: < 10 - Upon review of prior records, patient is known to present with altered mental status 2/2 alcohol intoxication - UDS: Negative - Ativan taper finished on 04/09 - --Continue Ativan 1mg IV Q6 PRN for withdrawal sx - Vitamin B12: 511m Folate levels: > 20 - Thiamine, folic acid, multivitamin - ammonia level rechecked 04/11 - < 9 - CT head (04/04): Chronic microvascular ischemic changes. 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 B/l basal ganglia and R thalamic lacunar infarcts. Focal encephalomalacia in the R duenas radiata. Pleural Effusion / Possible Pulmonary Infiltrates - Pulmonology, Dr. Lebron consulted - Abx Course finished - (Doxycycline 100 mg IV Q12H, Ceftriaxone 1mg IV Q24H) - Atrovent INH Q6 PRN - Legionella, s. pneumonia, influenza: Negative - Mycoplasma Ig.19 (normal: < 0.9), Mycoplasma IgM: negative - CXR (04/04): Limited patchy atelectasis medial right base with remaining lung liu clear. Stable prominent cardiac silhouette. - CT chest (04/04): Small to medium size right-sided effusion and mild right basilar atelectasis. Small opacities are also present within the middle lobe possibly representing rounded atelectasis and/or infiltrates. There also appears to be some mild dependent atelectasis in the left lung base. Trace right-sided effusion. Minimal linear scarring changes left lingular region. Suspect mild underlying pulmonary venous congestive changes. There also appears to be a few scattered parenchymal calcifications likely representing granulomata within both lower lung liu as well. Cardiomegaly. - CXR PA/Lateral 04/09 - Mild bibasilar atelectasis and/or infiltrate changes see n in the right mid to lower lung field with suspected mild left basilar atelectasis HX of CHF with preserved EF: - Cardiology, Dr. Dobbs consulted - Continue current regimen for BP control - 1500 mL/day fluid restricted diet - ProBNP: 29,300- increased from previous admissions - Previous Echo (08/2017): LV normal size, borderline LV hypertrophy, Systolic function borderline, mild septal hypokinesis, LVEF >50% - -- No additional echo indicated on this admission as patient is not showing symptoms of heart failure COPD exacerbation-resolved - Pulmonology, Dr. Lebron consulted - Duoneb Q6 PRN - Atrovent INH Q6 PRN - Patient is stable, O2 % saturation: 95-100% on room air Scabies - Resolved - Off contact precautions - Benadryl cream BID prn for pruritis - Vitamin A and D TOP BID Prophylaxis/diet: - DVT: Lovenox 40units qd, SCDs - GI: Protonix 40mg IVP daily - discontinued, no longer needed Dispo: Pending Medicaid approval. CM helping to secure [place] [facility] placement. d/w Dr Richey <Dominique Richey V - Last Filed: 04/29/18 21:00> Objective - Vital Signs/Intake and Output Vital Signs (last 24 hours): Temp Pulse Resp BP Pulse Ox 98.1 F 84 20 104/63 98 04/29/18 15:00 04/29/18 15:00 04/29/18 15:00 04/29/18 15:00 04/29/18 15:00 Intake and Output: 04/29/18 04/30/18 18:59 06:59 Intake Total 600 Balance 600 - Medications Medications: Current Medications Amlodipine Besylate (Norvasc) 10 mg PO DAILY [facility] Last Admin: 04/29/18 10:17 Dose: 10 mg Aspirin (Ecotrin) 81 mg PO DAILY [facility] Last Admin: 04/29/18 10:17 Dose: 81 mg Enoxaparin Sodium (Lovenox) 40 mg SC DAILY [facility] Last Admin: 04/29/18 10:17 Dose: 40 mg Guaifenesin (Mucinex La) 600 mg PO BID [facility] Last Admin: 04/29/18 17:50 Dose: 600 mg Isosorbide Mononitrate (Ismo) 20 mg PO DAILY [facility] Last Admin: 04/29/18 10:17 Dose: 20 mg Lactic Acid (Lac-Hydrin 12% Lotion (225 G)) 0 gm EXT Q12H [facility] Last Admin: 04/29/18 14:12 Dose: 1 applic Lactobacillus Acidophilus (Bacid Acidophilus) 1 cap PO BID [facility] Last Admin: 04/29/18 18:00 Dose: 1 cap Lisinopril (Zestril) 40 mg PO DAILY [facility] Last Admin: 04/29/18 10:17 Dose: 40 mg Rosuvastatin Calcium (Crestor) 5 mg PO HS [facility] Last Admin: 04/28/18 21:30 Dose: 5 mg Vitamin A (Vitamin A & D Oint Ud Foilpak) 1 ea TOP BID [facility] Last Admin: 04/29/18 17:50 Dose: 1 ea - Labs Labs: 04/25/18 06:40 04/29/18 11:00 PT 16.4 SECONDS (9.7-12.2) H 04/06/18 07:35 INR 1.5 04/06/18 07:35 APTT 28 SECONDS (21-34) 04/06/18 07:35 Attending/Attestation - Attestation I have personally seen and examined this patient.: Yes I have fully participated in the care of the patient.: Yes I have reviewed all pertinent clinical information, including history, physical exam and plan: Yes Notes (Text): This is late computer entry for 04/27/18. Patient seen, examined, and case discussed with nuclear medical tech. Agree with assessment and plan as written by resident. Diuretic discontinued yesterday. Will monitor creatinine and blood pressure and address accordingly. Patient is fall risk and needs assistive device. Patient is [place] [facility]. F/u case management and social work for discharge planning.
[2018-04-27] MEDS: Vitamins A & D Oint UD Foilpak TOP SCH ×2 (09:39→18:00)
[2018-04-27] MEDS: Enoxaparin 40 mg Syringe SC SCH (09:39)
[2018-04-27] MEDS: Lactobacillus Acidophilus 500 MU Cap PO SCH ×2 (09:39→18:01)
[2018-04-27] MEDS: guaiFENesin 600 mg ER Tab PO SCH ×2 (09:39→18:00)
[2018-04-27 17:41] LABS: BLOOD UREA NITROGEN 63 mg/dL (9-20); CALCIUM 9.3 mg/dl (8.6-10.4); GFR NON-AFRICAN AMERICAN > 60
[2018-04-28] MEDS: Ammonium Lactate 12% Lotion (225 g) EXT SCH
--- NOTE | 2018-04-28 02:34 | CP.PCM.PN ---
<Soren Munguia - Last Filed: 04/28/18 02:30> Subjective - Date & Time of Evaluation Date of Evaluation: 04/28/18 Time of Evaluation: 02:30 - Subjective Subjective: PGY-1 Medicine Progress Note for Dr. Abraham service Patient seen and examined at bedside. Patient states he is very tired and offers no other acute complaints. Patient was AAO x 1. Patient denies fevers, chills, chest pain, sob, n/v, constipation or diarrhea, and dysuria. Objective - Vital Signs/Intake and Output Vital Signs (last 24 hours): Temp Pulse Resp BP Pulse Ox 97.9 F 78 20 112/78 99 04/28/18 00:51 04/28/18 00:51 04/28/18 00:51 04/28/18 00:51 04/28/18 00:51 Intake and Output: 04/27/18 04/28/18 18:59 06:59 Intake Total 400 300 Balance 400 300 - Medications Medications: Current Medications Amlodipine Besylate (Norvasc) 10 mg PO DAILY [facility] Last Admin: 04/27/18 09:38 Dose: 10 mg Aspirin (Ecotrin) 81 mg PO DAILY [facility] Last Admin: 04/27/18 09:38 Dose: 81 mg Chlorthalidone (Hygroton) 25 mg PO DAILY [facility] Last Admin: 04/26/18 09:16 Dose: 25 mg Enoxaparin Sodium (Lovenox) 40 mg SC DAILY [facility] Last Admin: 04/27/18 09:39 Dose: 40 mg Guaifenesin (Mucinex La) 600 mg PO BID [facility] Last Admin: 04/27/18 18:00 Dose: 600 mg Isosorbide Mononitrate (Ismo) 20 mg PO DAILY [facility] Last Admin: 04/27/18 09:38 Dose: 20 mg Lactic Acid (Lac-Hydrin 12% Lotion (225 G)) 0 gm EXT Q12H [facility] Last Admin: 04/27/18 00:10 Dose: 1 applic Lactobacillus Acidophilus (Bacid Acidophilus) 1 cap PO BID [facility] Last Admin: 04/27/18 18:01 Dose: 1 cap Lisinopril (Zestril) 40 mg PO DAILY [facility] Last Admin: 04/27/18 09:39 Dose: 40 mg Rosuvastatin Calcium (Crestor) 5 mg PO HS [facility] Last Admin: 04/27/18 21:44 Dose: 5 mg Vitamin A (Vitamin A & D Oint Ud Foilpak) 1 ea TOP BID [facility] Last Admin: 04/27/18 18:00 Dose: 1 ea - Labs Labs: 04/25/18 06:40 04/27/18 17:16 PT 16.4 SECONDS (9.7-12.2) H 04/06/18 07:35 INR 1.5 04/06/18 07:35 APTT 28 SECONDS (21-34) 04/06/18 07:35 - Additional Findings Additional findings: - Constitutional Appears: No Acute Distress, Cachectic - Head Exam Head Exam: ATRAUMATIC, NORMAL INSPECTION, NORMOCEPHALIC - Eye Exam Eye Exam: Normal appearance - ENT Exam ENT Exam: Mucous Membranes Dry - Respiratory Exam Respiratory Exam: Clear to Ausculation Bilateral, NORMAL BREATHING PATTERN. absent: Rales, Rhonchi, Wheezes - Cardiovascular Exam Cardiovascular Exam: +S1, +S2 - Extremities Exam Extremities Exam: Full ROM. absent: Calf Tenderness, Pedal Edema Additional comments: Feet covered in dressing due to interdigit maceration. Per podiatry: Skin is noted to be dirty and xerotic. Interdigital maceration noted to be greatly improved in all interdigital spaces. Otherwise, no open lesions, wounds, maceration, xerosis, abnormal pigmentation or abnormal growths noted - Neurological Exam Neurological Exam: Alert, Awake - Psychiatric Exam Psychiatric exam: Normal Affect, Normal Mood - Skin Skin Exam: Dry, Intact, Normal Color, Warm Assessment and Plan - Assessment and Plan (Free Text) Assessment: 58 year old male with PMHx of HTN, ETOH abuse, CHF, and CVA presented to the ED for foot pain and with altered mental status. Patient currently stable on medicine floor. Plan: JASWANT initial admission, patient in JASWANT, resolved, now returned likely 2/2 dehydration Nephrology consulted- Dr. Lizarraga- recs below Avoid nephrotoxic agents (NSAIDS, phosphate enema) will hold chlorthiladone 25 mg daily Will hold fluids due to underly CHF, will encourage gentle PO hydration Renal artery duplex - possible significant GLADIS - Renal ultrasound (04/05): non-obstructive left nephrolithiasis. Otherwise normal ultrasound Left Foot Hammertoes and Heel Spurs Pt ambulates with help of rolling walker. Tolerating PT. No evidence of cellulitis, lower extremities show blanchable erythema Podiatry, Dr. Gomez consulted- recs below Betadine soak leonidas interphalangel toe spaces w/ krillex wrap No sx intervention at this time Doxycycline 100 mg IV Q12H and Ceftriaxone 1mg IV Q24H finished Blood culture (04/04): No growth x 5 days Lower extremities venous doppler: negative for DVT Foot Xray (04/03): Degenerative changes of the forefoot. No acute fractures, subluxations. B/l hammertoe deformities are identified diffusely. Severe hallux valgus deformity noted. Large plantar calcaneal spurs b/l. PT/ OT recommended for gait training Hypertension, uncontrolled Patient not compliant with previous discharge meds. Given decreased mental capacity at baseline, it is unlikely he will be capable of taking his daily medications without assistance. Imdur 20mg PO daily Lisinopril 10mg PO daily Amlodipine 10mg PO daily Hydralazine decreased from 75 mg PO TID to 50 mg BID. Continue to taper and monitor BP. Chlorthalidone 25 mg PO daily added Secondary HTN workup: Renal artery duplex 04/05/2018: RIGHT: Findings suggestive of hemodynamically significant stenosis of the right renal artery, proximal segment. LEFT: No definite hemodynamically significant stenosis involving the renal arteries as visualized. Dr. Lizarraga has been following this patient and does not feel that this is signi ficant GLADIS that would require intervention/stent. HTN to continue to be managed medically. Plasma metanephrines WNL Aldosterone/Plasma renin activity: Aldosterone <1, Renin 12.25 ASA 81 mg PO daily Crestor 5 mg PO HS History of chronic alcohol abuse: Monitor for signs of withdrawal Serum alcohol level: < 10 Upon review of prior records, patient is known to present with altered mental status 2/2 alcohol intoxication UDS: Negative Ativan taper finished on 04/09 Continue Ativan 1mg IV Q6 PRN for withdrawal sx Vitamin B12: 511m Folate levels: > 20 Thiamine, folic acid, multivitamin Ammonia level rechecked 04/11 - < 9 CT head (04/04): Chronic microvascular ischemic changes. 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 B/l basal ganglia and R thalamic lacunar infarcts. Focal encephalomalacia in the R duenas radiata. Pleural Effusion / Possible Pulmonary Infiltrates Pulmonology, Dr. Lebron consulted Abx Course finished - (Doxycycline 100 mg IV Q12H, Ceftriaxone 1mg IV Q24H) Atrovent INH Q6 PRN Legionella, s. pneumonia, influenza: Negative Mycoplasma Ig.19 (normal: < 0.9), Mycoplasma IgM: negative CXR (04/04): Limited patchy atelectasis medial right base with remaining lung liu clear. Stable prominent cardiac silhouette. CT chest (04/04): Small to medium size right-sided effusion and mild right basilar atelectasis. Small opacities are also present within the middle lobe possibly representing rounded atelectasis and/or infiltrates. There also appears to be some mild dependent atelectasis in the left lung base. Trace right-sided effusion. Minimal linear scarring changes left lingular region. Suspect mild underlying pulmonary venous congestive changes. There also appears to be a few scattered parenchymal calcifications likely representing granulomata within both lower lung liu as well. Cardiomegaly. CXR PA/Lateral 04/09 - Mild bibasilar atelectasis and/or infiltrate changes seen in the right mid to lower lung field with suspected mild left basilar atelectasis HX of CHF with preserved EF Cardiology, Dr. Dobbs consulted Continue current regimen for BP control 1500 mL/day fluid restricted diet ProBNP: 29,300- increased from previous admissions Previous Echo (08/2017): LV normal size, borderline LV hypertrophy, Systolic function borderline, mild septal hypokinesis, LVEF >50% No additional echo indicated on this admission as patient is not showing symptoms of heart failure COPD exacerbation-resolved Pulmonology, Dr. Lebron consulted Duoneb Q6 PRN Atrovent INH Q6 PRN Patient is stable, O2 % saturation: 95-100% on room air Scabies - Resolved Off contact precautions Benadryl cream BID prn for pruritis Vitamin A and D TOP BID Prophylaxis/diet: DVT: Lovenox 40units qd, SCDs GI: Protonix 40mg IVP daily - discontinued, no longer needed Dispo: Pending Medicaid approval. CM helping to secure group home placement. <Dominique Richey V - Last Filed: 04/29/18 10:02> Objective - Vital Signs/Intake and Output Vital Signs (last 24 hours): Temp Pulse Resp BP Pulse Ox 98.7 F 84 20 113/67 97 04/29/18 07:47 04/29/18 07:47 04/29/18 07:47 04/29/18 07:47 04/29/18 07:47 Intake and Output: 04/29/18 04/29/18 06:59 18:59 Intake Total 300 Balance 300 - Medications Medications: Current Medications Amlodipine Besylate (Norvasc) 10 mg PO DAILY [facility] Last Admin: 04/28/18 10:17 Dose: 10 mg Aspirin (Ecotrin) 81 mg PO DAILY [facility] Last Admin: 04/28/18 10:17 Dose: 81 mg Chlorthalidone (Hygroton) 25 mg PO DAILY [facility] Last Admin: 04/26/18 09:16 Dose: 25 mg Enoxaparin Sodium (Lovenox) 40 mg SC DAILY [facility] Last Admin: 04/28/18 10:17 Dose: 40 mg Guaifenesin (Mucinex La) 600 mg PO BID [facility] Last Admin: 04/28/18 17:30 Dose: 600 mg Isosorbide Mononitrate (Ismo) 20 mg PO DAILY [facility] Last Admin: 04/28/18 10:17 Dose: 20 mg Lactic Acid (Lac-Hydrin 12% Lotion (225 G)) 0 gm EXT Q12H [facility] Last Admin: 04/29/18 00:40 Dose: 1 applic Lactobacillus Acidophilus (Bacid Acidophilus) 1 cap PO BID [facility] Last Admin: 04/28/18 17:30 Dose: 1 cap Lisinopril (Zestril) 40 mg PO DAILY [facility] Last Admin: 04/28/18 10:16 Dose: 40 mg Rosuvastatin Calcium (Crestor) 5 mg PO HS [facility] Last Admin: 04/28/18 21:30 Dose: 5 mg Vitamin A (Vitamin A & D Oint Ud Foilpak) 1 ea TOP BID [facility] Last Admin: 04/28/18 17:31 Dose: 1 ea - Labs Labs: 04/25/18 06:40 04/27/18 17:16 PT 16.4 SECONDS (9.7-12.2) H 04/06/18 07:35 INR 1.5 04/06/18 07:35 APTT 28 SECONDS (21-34) 04/06/18 07:35 Attending/Attestation - Attestation I have personally seen and examined this patient.: Yes I have fully participated in the care of the patient.: Yes I have reviewed all pertinent clinical information, including history, physical exam and plan: Yes Notes (Text): This is late computer entry for 04/28/18. Patient seen, examined, and case discussed with day-time resident. patient seen this afternoon. Social and protective services case worker working on discharge planning at this time. Social work working on group home level of care. Will need to f/u in regards to discharge planning given patient has gait disturbance. Continue current management. Assessment/Plan 1) History of chronic alcohol abuse Assessment/Plan * Patient has completed ativan taper. * Patient is not in the window for withdrawal * Serum alcohol level: < 10 * Upon review of prior records, patient is known to present with altered mental status 2/2 alcohol intoxication * UDS: Negative * Vitamin B12: 511m Folate levels: > 20 * c/w Thiamine, folic acid, multivitamin * Ammonia is low 2) Deconditioning Assessment/Plan * PT walked with patient 04/23 -patient needs continued PT to regain independent ambulation without assistance/RW. * Per case management, patient will not be accepted to a homeless assisted without ability to ambulate independently without a walker * Social work attempting to secure group home placement * CT head (04/04): Chronic microvascular ischemic changes. 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 B/l basal ganglia and R thalamic lacunar infarcts. Focal encephalomalacia in the R duenas radiata. * C/w physical therapy given recommendation for [facility]. Patient does not have insurance to make him eligible for [facility]. * Continues to need rolling walker regarding gait; therefore not eligible for assisted 3) Hypertension Assessment/Plan * Patient has not prior history of noncompliance. * Imdur 20mg PO daily * Lisinopril 10mg PO QDaily * Amlodipine 10mg PO QDaily * d/c Chlorthalidone 25mg PO daily * d/c Hydralazine decreased 25mg PO Q8H 04/21/18 * Secondary HTN workup: * Renal artery duplex 04/05/2018: RIGHT: Findings suggestive of hemodynamically significant stenosis of the right renal artery, proximal segment. LEFT: No definite hemodynamically significant stenosis involving the renal arteries as visualized. * Plasma metanephrines: f/u * Aldosterone/Plasma renin activity: f/u 4) Lower extremity swelling Resolved) * No evidence of cellulitis, lower extremities show blanchable erythema * Completed IV abx to cover for cellulitis and pneumonia * Patient's case consulted with podiatry during hospitalization. * Foot Xray (04/03): Degenerative changes of the forefoot. No acute fractures, subluxations. B/l hammertoe deformities are identified diffusely. Severe hallux valgus deformity noted. Large plantar calcaneal spurs b/l. 5) Atelectasis; possible pneumonia * Patient has completed IV abx to cover for pnuemonia * Legionella, s. pneumonia, influenza: Negative, Mycoplasma Ig.19 (normal: < 0.9), Mycoplasma IgM: negative * CXR (04/04): Limited patchy atelectasis medial right base with remaining lung liu clear. Stable prominent cardiac silhouette. * CT chest (04/04): Small to medium size right-sided effusion and mild right basilar atelectasis. Small opacities are also present within the middle lobe possibly representing rounded atelectasis and/or infiltrates. There also appears to be some mild dependent atelectasis in the left lung base. Trace right-sided effusion. Minimal linear scarring changes left lingular region. Suspect mild underlying pulmonary venous congestive changes. There also appears to be a few scattered parenchymal calcifications likely representing granulomata within both lower lung liu as well. Cardiomegaly. * CXR PA/Lateral 04/09 - Mild bibasilar atelectasis and/or infiltrate changes seen in the right mid to lower lung field with suspected mild left basilar atelectais * Mucinex 600mg PO BID 6) Scabies (resolved) * Completed 2 doses of Permethrin during hospitalization * Contact precaution d/c' * Benadryl cream BID prn for itchiness; patient advised to stop scratching. Patient has poor nail hygiene * Vitamin A and D TOP BID for dry skin 7) HX of CHF with reserved EF: * Cardiology, Dr. Dobbs consulted * Continue current regimen for BP control - hydralazine 100 PO q8, norvasc 10 PO daily, lisinopril 40 PO daily, norvasc 10mg PO daily * No additional echo indicated on this admission as patient is not showing symptoms of heart failure * ProBNP: 29,300- increased from previous admissions * Previous Echo (08/2017): LV normal size, borderline LV hypertrophy, Systolic function borderline, mild septal hypokinesis, LVEF >50% * No beta jessica given side effect of bronchospasm * Crestor 5mg PO daily * Aspirin 81mg Po daily 8) COPD exacerbation, resolved: * Pulmonology, Dr. Lebron consulted * Atrovent INH Q6 PRN * Patient is stable, O2 % saturation: 95-100% on room air 9) JASWANT, resolved: * BUN/ Cr today 04/13: 40/0.8 * Nephrology, Dr. Lizarraga consulted * Avoid nephrotoxic agents (NSAIDS, phosphate enema) * Renal artery duplex - possible significant GLADIS - see above * Renal ultrasound (04/05): non-obstructive left nephrolithiasis. Otherwise normal ultrasound 10) Prophylaxis/diet: * DVT PPX: lovenox 40mg subqdaily * GI: Protonix 40mg IVP daily * HHD Disposition: patient is medically optimized. patient will need physical therapy given gait imbalance and deconditioning; he is able to walk only with rolling walker however he is without insurance and cannot go to assisted given his need for device. pending group home placement.
[2018-04-28] MEDS: Vitamins A & D Oint UD Foilpak TOP SCH ×2 (10:16→17:31)
[2018-04-28] MEDS: guaiFENesin 600 mg ER Tab PO SCH ×2 (10:17→17:30)
[2018-04-28] MEDS: Lactobacillus Acidophilus 500 MU Cap PO SCH ×2 (10:17→17:30)
[2018-04-28] MEDS: Enoxaparin 40 mg Syringe SC SCH (10:17)
--- NOTE | 2018-04-28 11:03 | CP.PCM.PN ---
Subjective - Date & Time of Evaluation Date of Evaluation: 04/28/18 Time of Evaluation: 11:01 - Subjective Subjective: Podiatry Progress Note for Dr. Gomez 58M seen at bedside for interdigital maceration. Patient does not respond to many of the questions asked of him but does state that his feet feel better. Admits to mimimal pain, mainly to the right toes. Per nursing, no acute overnight events or new pedal issues. Objective - Vital Signs/Intake and Output Vital Signs (last 24 hours): Temp Pulse Resp BP Pulse Ox 98.7 F 68 20 128/86 95 04/28/18 08:32 04/28/18 08:32 04/28/18 08:32 04/28/18 08:32 04/28/18 08:32 Intake and Output: 04/28/18 04/28/18 06:59 18:59 Intake Total 300 Balance 300 - Medications Medications: Current Medications Amlodipine Besylate (Norvasc) 10 mg PO DAILY [facility] Last Admin: 04/28/18 10:17 Dose: 10 mg Aspirin (Ecotrin) 81 mg PO DAILY [facility] Last Admin: 04/28/18 10:17 Dose: 81 mg Chlorthalidone (Hygroton) 25 mg PO DAILY [facility] Last Admin: 04/26/18 09:16 Dose: 25 mg Enoxaparin Sodium (Lovenox) 40 mg SC DAILY [facility] Last Admin: 04/28/18 10:17 Dose: 40 mg Guaifenesin (Mucinex La) 600 mg PO BID [facility] Last Admin: 04/28/18 10:17 Dose: 600 mg Isosorbide Mononitrate (Ismo) 20 mg PO DAILY [facility] Last Admin: 04/28/18 10:17 Dose: 20 mg Lactic Acid (Lac-Hydrin 12% Lotion (225 G)) 0 gm EXT Q12H [facility] Last Admin: 04/28/18 00:00 Dose: 1 applic Lactobacillus Acidophilus (Bacid Acidophilus) 1 cap PO BID [facility] Last Admin: 04/28/18 10:17 Dose: 1 cap Lisinopril (Zestril) 40 mg PO DAILY [facility] Last Admin: 04/28/18 10:16 Dose: 40 mg Rosuvastatin Calcium (Crestor) 5 mg PO HS [facility] Last Admin: 04/27/18 21:44 Dose: 5 mg Vitamin A (Vitamin A & D Oint Ud Foilpak) 1 ea TOP BID [facility] Last Admin: 04/28/18 10:16 Dose: 1 ea - Labs Labs: 04/25/18 06:40 04/27/18 17:16 PT 16.4 SECONDS (9.7-12.2) H 04/06/18 07:35 INR 1.5 04/06/18 07:35 APTT 28 SECONDS (21-34) 04/06/18 07:35 - Constitutional Appears: Well, Non-toxic - Head Exam Head Exam: ATRAUMATIC - Extremities Exam Additional comments: LE focused exam: Vasc: DP/PT pulses fully palpable 2/4 b/l. Skin temperature warm to warm from proximal to distal WNL. CFT < 3 seconds to all digits. No edema noted b/l Neuro: Epicritic and protective sensation grossly intact b/l Derm: Skin is noted to be dirty and xerotic. Interdigital maceration noted to be healed in all interdigital spaces. Otherwise, no open lesions, wounds, maceration, xerosis, abnormal pigmentation or abnormal growths noted MSK: Rigid hammertoe contractures and b/l HAV deformities noted to digits of b/l feet. Assessment and Plan - Assessment and Plan (Free Text) Assessment: 58M seen at bedside for interdigital maceration Plan: Patient seen and evaluated Plan discussed with Dr. Gomez Afebmickey, absent leukocytosis Foot xray: Degenerative changes primarily in the forefoot as discussed above. Bilateral hammertoe deformities are identified diffusely. Severe hallux valgus deformities are noted. Large plantar calcaneal spurs bilaterally. no dressing to the feet needed. No plan for surgical intervention at this time Podiatry will sign off at this time. please reconsult if necessary Podiatry will continue to follow while patient in house
[2018-04-29] MEDS: Ammonium Lactate 12% Lotion (225 g) EXT SCH ×2 (00:40→14:12)
--- NOTE | 2018-04-29 02:44 | CP.PCM.PN ---
<Soren Munguia - Last Filed: 04/29/18 02:41> Subjective - Date & Time of Evaluation Date of Evaluation: 04/29/18 Time of Evaluation: 02:41 - Subjective Subjective: PGY-1 Medicine Progress Note for Dr. Abraham service Patient seen and examined at bedside. Patient states he is very tired and offers no other acute complaints. Patient denies fevers, chills, chest pain, sob, n/v, constipation or diarrhea, and dysuria. Objective - Vital Signs/Intake and Output Vital Signs (last 24 hours): Temp Pulse Resp BP Pulse Ox 98.1 F 77 20 104/66 96 04/28/18 23:57 04/28/18 23:57 04/28/18 23:57 04/28/18 23:57 04/28/18 23:57 - Medications Medications: Current Medications Amlodipine Besylate (Norvasc) 10 mg PO DAILY [facility] Last Admin: 04/28/18 10:17 Dose: 10 mg Aspirin (Ecotrin) 81 mg PO DAILY [facility] Last Admin: 04/28/18 10:17 Dose: 81 mg Chlorthalidone (Hygroton) 25 mg PO DAILY [facility] Last Admin: 04/26/18 09:16 Dose: 25 mg Enoxaparin Sodium (Lovenox) 40 mg SC DAILY [facility] Last Admin: 04/28/18 10:17 Dose: 40 mg Guaifenesin (Mucinex La) 600 mg PO BID [facility] Last Admin: 04/28/18 17:30 Dose: 600 mg Isosorbide Mononitrate (Ismo) 20 mg PO DAILY [facility] Last Admin: 04/28/18 10:17 Dose: 20 mg Lactic Acid (Lac-Hydrin 12% Lotion (225 G)) 0 gm EXT Q12H [facility] Last Admin: 04/29/18 00:40 Dose: 1 applic Lactobacillus Acidophilus (Bacid Acidophilus) 1 cap PO BID [facility] Last Admin: 04/28/18 17:30 Dose: 1 cap Lisinopril (Zestril) 40 mg PO DAILY [facility] Last Admin: 04/28/18 10:16 Dose: 40 mg Rosuvastatin Calcium (Crestor) 5 mg PO HS [facility] Last Admin: 04/28/18 21:30 Dose: 5 mg Vitamin A (Vitamin A & D Oint Ud Foilpak) 1 ea TOP BID [facility] Last Admin: 04/28/18 17:31 Dose: 1 ea - Labs Labs: 04/25/18 06:40 04/27/18 17:16 PT 16.4 SECONDS (9.7-12.2) H 04/06/18 07:35 INR 1.5 04/06/18 07:35 APTT 28 SECONDS (21-34) 04/06/18 07:35 - Additional Findings Additional findings: - Constitutional Appears: No Acute Distress, Cachectic - Head Exam Head Exam: ATRAUMATIC, NORMAL INSPECTION, NORMOCEPHALIC - Eye Exam Eye Exam: Normal appearance - ENT Exam ENT Exam: Mucous Membranes Dry - Respiratory Exam Respiratory Exam: Clear to Ausculation Bilateral, NORMAL BREATHING PATTERN. absent: Rales, Rhonchi, Wheezes - Cardiovascular Exam Cardiovascular Exam: +S1, +S2 - Extremities Exam Extremities Exam: Full ROM. absent: Calf Tenderness, Pedal Edema Additional comments: Feet covered in dressing due to interdigit maceration. Per podiatry: Skin is noted to be dirty and xerotic. Interdigital maceration not ed to be greatly improved in all interdigital spaces. Otherwise, no open lesions, wounds, maceration, xerosis, abnormal pigmentation or abnormal growths noted - Neurological Exam Neurological Exam: Alert, Awake - Psychiatric Exam Psychiatric exam: Normal Affect, Normal Mood - Skin Skin Exam: Dry, Intact, Normal Color, Warm Assessment and Plan - Assessment and Plan (Free Text) Assessment: 58 year old male with PMHx of HTN, ETOH abuse, CHF, and CVA presented to the ED for foot pain and with altered mental status. Patient currently stable on medicine floor. Plan: JASWANT initial admission, patient in JASWANT, resolved, now returned likely 2/2 dehydration Nephrology consulted- Dr. Lizarraga- recs below Avoid nephrotoxic agents (NSAIDS, phosphate enema) will hold chlorthiladone 25 mg daily Will hold fluids due to underly CHF, will encourage gentle PO hydration Renal artery duplex - possible significant GLADIS - Renal ultrasound (04/05): non-obstructive left nephrolithiasis. Otherwise normal ultrasound Left Foot Hammertoes and Heel Spurs Pt ambulates with help of rolling walker. Tolerating PT. No evidence of cellulitis, lower extremities show blanchable erythema Podiatry, Dr. Gomez consulted- signed off; reconsult if necessary; no need for acute surgical intervention Betadine soak leonidas interphalangel toe spaces w/ krillex wrap Blood culture (04/04): No growth x 5 days Lower extremities venous doppler: negative for DVT Foot Xray (04/03): Degenerative changes of the forefoot. No acute fractures, subluxations. B/l hammertoe deformities are identified diffusely. Severe hallux valgus deformity noted. Large plantar calcaneal spurs b/l. PT/ OT recommended for gait training Hypertension, uncontrolled Patient not compliant with previous discharge meds. Given decreased mental capacity at baseline, it is unlikely he will be capable of taking his daily medications without assistance. Imdur 20mg PO daily Lisinopril 10mg PO daily Amlodipine 10mg PO daily Hydralazine decreased from 75 mg PO TID to 50 mg BID. Continue to taper and monitor BP. Chlorthalidone 25 mg PO daily added Secondary HTN workup: Renal artery duplex 04/05/2018: RIGHT: Findings suggestive of hemodynamically significant stenosis of the right renal artery, proximal segment. LEFT: No definite hemodynamically significant stenosis involving the renal arteries as visualized. Dr. Lizarraga has been following this patient and does not feel that this is significant GLADSI that would require intervention/stent. HTN to continue to be managed medically. Plasma metanephrines WNL Aldosterone/Plasma renin activity: Aldosterone <1, Renin 12.25 ASA 81 mg PO daily Crestor 5 mg PO HS History of chronic alcohol abuse: Monitor for signs of withdrawal Serum alcohol level: < 10 Upon review of prior records, patient is known to present with altered mental status 2/2 alcohol intoxication UDS: Negative Ativan taper finished on 04/09 Continue Ativan 1mg IV Q6 PRN for withdrawal sx Vitamin B12: 511m Folate levels: > 20 Thiamine, folic acid, multivitamin Ammonia level rechecked 04/11 - < 9 CT head (04/04): Chronic microvascular ischemic changes. 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 B/l basal ganglia and R thalamic lacunar infarcts. Focal encephalomalacia in the R duenas radiata. Pleural Effusion / Possible Pulmonary Infiltrates Pulmonology, Dr. Lebron consulted Abx Course finished - (Doxycycline 100 mg IV Q12H, Ceftriaxone 1mg IV Q24H) Atrovent INH Q6 PRN Legionella, s. pneumonia, influenza: Negative Mycoplasma Ig.19 (normal: < 0.9), Mycoplasma IgM: negative CXR (04/04): Limited patchy atelectasis medial right base with remaining lung liu clear. Stable prominent cardiac silhouette. CT chest (04/04): Small to medium size right-sided effusion and mild right basilar atelectasis. Small opacities are also present within the middle lobe possibly representing rounded atelectasis and/or infiltrates. There also appears to be some mild dependent atelectasis in the left lung base. Trace right-sided effusion. Minimal linear scarring changes left lingular region. Suspect mild underlying pulmonary venous congestive changes. There also appears to be a few scattered parenchymal calcifications likely representing granulomata within both lower lung liu as well. Cardiomegaly. CXR PA/Lateral 04/09 - Mild bibasilar atelectasis and/or infiltrate changes seen in the right mid to lower lung field with suspected mild left basilar atelectasis HX of CHF with preserved EF Cardiology, Dr. Dobbs consulted Continue current regimen for BP control 1500 mL/day fluid restricted diet ProBNP: 29,300- increased from previous admissions Previous Echo (08/2017): LV normal size, borderline LV hypertrophy, Systolic function borderline, mild septal hypokinesis, LVEF >50% No additional echo indicated on this admission as patient is not showing symptoms of heart failure COPD exacerbation-resolved Pulmonology, Dr. Lebron consulted Duoneb Q6 PRN Atrovent INH Q6 PRN Patient is stable, O2 % saturation: 95-100% on room air Scabies - Resolved Off contact precautions Benadryl cream BID prn for pruritis Vitamin A and D TOP BID Prophylaxis/diet: DVT: Lovenox 40units qd, SCDs GI: Protonix 40mg IVP daily - discontinued, no longer needed Dispo: Pending Medicaid approval. CM helping to secure long-term placement. <Dominique Richey V - Last Filed: 04/29/18 10:00> Objective - Vital Signs/Intake and Output Vital Signs (last 24 hours): Temp Pulse Resp BP Pulse Ox 98.7 F 84 20 113/67 97 04/29/18 07:47 04/29/18 07:47 04/29/18 07:47 04/29/18 07:47 04/29/18 07:47 Intake and Output: 04/29/18 04/29/18 06:59 18:59 Intake Total 300 Balance 300 - Medications Medications: Current Medications Amlodipine Besylate (Norvasc) 10 mg PO DAILY [facility] Last Admin: 04/28/18 10:17 Dose: 10 mg Aspirin (Ecotrin) 81 mg PO DAILY [facility] Last Admin: 04/28/18 10:17 Dose: 81 mg Chlorthalidone (Hygroton) 25 mg PO DAILY [facility] Last Admin: 04/26/18 09:16 Dose: 25 mg Enoxaparin Sodium (Lovenox) 40 mg SC DAILY [facility] Last Admin: 04/28/18 10:17 Dose: 40 mg Guaifenesin (Mucinex La) 600 mg PO BID [facility] Last Admin: 04/28/18 17:30 Dose: 600 mg Isosorbide Mononitrate (Ismo) 20 mg PO DAILY [facility] Last Admin: 04/28/18 10:17 Dose: 20 mg Lactic Acid (Lac-Hydrin 12% Lotion (225 G)) 0 gm EXT Q12H [facility] Last Admin: 04/29/18 00:40 Dose: 1 applic Lactobacillus Acidophilus (Bacid Acidophilus) 1 cap PO BID [facility] Last Admin: 04/28/18 17:30 Dose: 1 cap Lisinopril (Zestril) 40 mg PO DAILY [facility] Last Admin: 04/28/18 10:16 Dose: 40 mg Rosuvastatin Calcium (Crestor) 5 mg PO HS [facility] Last Admin: 04/28/18 21:30 Dose: 5 mg Vitamin A (Vitamin A & D Oint Ud Foilpak) 1 ea TOP BID [facility] Last Admin: 04/28/18 17:31 Dose: 1 ea - Labs Labs: 04/25/18 06:40 04/27/18 17:16 PT 16.4 SECONDS (9.7-12.2) H 04/06/18 07:35 INR 1.5 04/06/18 07:35 APTT 28 SECONDS (21-34) 04/06/18 07:35 Attending/Attestation - Attestation I have personally seen and examined this patient.: Yes I have fully participated in the care of the patient.: Yes I have reviewed all pertinent clinical information, including history, physical exam and plan: Yes Notes (Text): Patient seen, examined, and case discussed with day-time resident. patient seen this morning. Social and child support case officer working on discharge planning at this time. Social work working on long-term level of care. Will need to f/u in regards to discharge planning given patient has gait disturbance. Order BMP and Magnesium. Patient's blood pressure controlled while off diuretic. Assessment/Plan 1) History of chronic alcohol abuse Assessment/Plan * Patient has completed ativan taper. * Patient is not in the window for withdrawal * Serum alcohol level: < 10 * Upon review of prior records, patient is known to present with altered mental status 2/2 alcohol intoxication * UDS: Negative * Vitamin B12: 511m Folate levels: > 20 * c/w Thiamine, folic acid, multivitamin * Ammonia is low 2) Deconditioning Assessment/Plan * PT walked with patient 04/23 -atient needs continued PT to regain independent ambulation without assistance/RW. * Per case management, patient will not [facility] to a homeless [facility] witho ut ability to ambulate independently without a walker * Social work attempting to secure long-term placement * CT head (04/04): Chronic microvascular ischemic changes. 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 B/l basal ganglia and R thalamic lacunar infarcts. Focal encephalomalacia in the R duenas radiata. * C/w physical therapy given recommendation for [facility]. Patient does not have insurance to make him eligible for [facility]. * Continues to need rolling walker regarding gait; therefore not eligible for [facility] 3) Hypertension Assessment/Plan * Patient has not prior history of noncompliance. * Imdur 20mg PO daily * Lisinopril 10mg PO QDaily * Amlodipine 10mg PO QDaily * d/c Chlorthalidone 25mg PO daily * d/c Hydralazine decreased 25mg PO Q8H 04/21/18 * Secondary HTN workup: * Renal artery duplex 04/05/2018: RIGHT: Findings suggestive of hemodynamically significant stenosis of the right renal artery, proximal segment. LEFT: No definite hemodynamically significant stenosis involving the renal arteries as visualized. * Plasma metanephrines: f/u * Aldosterone/Plasma renin activity: f/u 4) Lower extremity swelling Resolved) * No evidence of cellulitis, lower extremities show blanchable erythema * Completed IV abx to cover for cellulitis and pneumonia * Patient's case consulted with podiatry during hospitalization. * Foot Xray (04/03): Degenerative changes of the forefoot. No acute fractures, subluxations. B/l hammertoe deformities are identified diffusely. Severe hallux valgus deformity noted. Large plantar calcaneal spurs b/l. 5) Atelectasis; possible pneumonia * Patient has completed IV abx to cover for pnuemonia * Legionella, s. pneumonia, influenza: Negative, Mycoplasma Ig.19 (normal: < 0.9), Mycoplasma IgM: negative * CXR (04/04): Limited patchy atelectasis medial right base with remaining lung liu clear. Stable prominent cardiac silhouette. * CT chest (04/04): Small to medium size right-sided effusion and mild right basilar atelectasis. Small opacities are also present within the middle lobe possibly representing rounded atelectasis and/or infiltrates. There also appears to be some mild dependent atelectasis in the left lung base. Trace right-sided effusion. Minimal linear scarring changes left lingular region. Suspect mild underlying pulmonary venous congestive changes. There also appear s to be a few scattered parenchymal calcifications likely representing granulomata within both lower lung liu as well. Cardiomegaly. * CXR PA/Lateral 04/09 - Mild bibasilar atelectasis and/or infiltrate changes seen in the right mid to lower lung field with suspected mild left basilar atelectais * Mucinex 600mg PO BID 6) Scabies (resolved) * Completed 2 doses of Permethrin during hospitalization * Contact precaution d/c' * Benadryl cream BID prn for itchiness; patient advised to stop scratching. Patient has poor nail hygiene * Vitamin A and D TOP BID for dry skin 7) HX of CHF with reserved EF: * Cardiology, Dr. Dobbs consulted * Continue current regimen for BP control - hydralazine 100 PO q8, norvasc 10 PO daily, lisinopril 40 PO daily, norvasc 10mg PO daily * No additional echo indicated on this admission as patient is not showing symptoms of heart failure * ProBNP: 29,300- increased from previous admissions * Previous Echo (08/2017): LV normal size, borderline LV hypertrophy, Systolic function borderline, mild septal hypokinesis, LVEF >50% * No beta jessica given side effect of bronchospasm * Crestor 5mg PO daily * Aspirin 81mg Po daily 8) COPD exacerbation, resolved: * Pulmonology, Dr. Lebron consulted * Atrovent INH Q6 PRN * Patient is stable, O2 % saturation: 95-100% on room air 9) JASWANT, resolved: * BUN/ Cr today 04/13: 40/0.8 * Nephrology, Dr. Lizarraga consulted * Avoid nephrotoxic agents (NSAIDS, phosphate enema) * Renal artery duplex - possible significant GLADIS - see above * Renal ultrasound (04/05): non-obstructive left nephrolithiasis. Otherwise normal ultrasound 10) Prophylaxis/diet: * DVT PPX: lovenox 40mg subqdaily * GI: Protonix 40mg IVP daily * HHD Disposition: patient is medically optimized. patient will need physical therapy given gait imbalance and deconditioning; he is able to walk only with rolling walker however he is without insurance and cannot go to [facility] given his need for device. Placement for long-term placement.
[2018-04-29] MEDS: Lactobacillus Acidophilus 500 MU Cap PO SCH ×2 (10:17→18:00)
[2018-04-29] MEDS: Enoxaparin 40 mg Syringe SC SCH (10:17)
[2018-04-29] MEDS: Vitamins A & D Oint UD Foilpak TOP SCH ×2 (10:17→17:50)
[2018-04-29] MEDS: guaiFENesin 600 mg ER Tab PO SCH ×2 (10:17→17:50)
[2018-04-29 11:34] LABS: BLOOD UREA NITROGEN 63 mg/dL (9-20); CALCIUM 9.1 mg/dl (8.6-10.4); GFR NON-AFRICAN AMERICAN > 60
[2018-04-29] MEDS ORDERED: Sod Polystyrene Sulf 15 gm/60 ml Susp PO ONE ×2 (19:13→20:45)
[2018-04-30] MEDS: Ammonium Lactate 12% Lotion (225 g) EXT SCH ×2 (00:20→11:52)
[2018-04-30 08:35] LABS: BLOOD UREA NITROGEN 67 mg/dL (9-20); CALCIUM 9.3 mg/dl (8.6-10.4); GFR NON-AFRICAN AMERICAN > 60
[2018-04-30] MEDS: Vitamins A & D Oint UD Foilpak TOP SCH ×2 (10:53→17:37)
[2018-04-30] MEDS: guaiFENesin 600 mg ER Tab PO SCH ×2 (10:54→17:36)
[2018-04-30] MEDS: Lactobacillus Acidophilus 500 MU Cap PO SCH ×2 (10:54→17:40)
--- NOTE | 2018-04-30 11:00 | CP.PCM.PN ---
<Buzz Nash - Last Filed: 04/30/18 22:46> Subjective - Date & Time of Evaluation Date of Evaluation: 04/30/18 Time of Evaluation: 10:53 - Subjective Subjective: Hospitalist Service Pt seen and examined at bedside. Pt denies any acute events overnight, tolerated breakfast, denies cp sob fc nv. Limited mental acuity Objective - Vital Signs/Intake and Output Vital Signs (last 24 hours): Temp Pulse Resp BP Pulse Ox 98.1 F 72 20 112/79 98 04/30/18 07:51 04/30/18 07:51 04/30/18 07:51 04/30/18 07:51 04/30/18 07:51 Intake and Output: 04/30/18 04/30/18 06:59 18:59 Intake Total 650 Balance 650 - Medications Medications: Current Medications Amlodipine Besylate (Norvasc) 10 mg PO DAILY [facility] Last Admin: 04/29/18 10:17 Dose: 10 mg Aspirin (Ecotrin) 81 mg PO DAILY [facility] Last Admin: 04/29/18 10:17 Dose: 81 mg Enoxaparin Sodium (Lovenox) 40 mg SC DAILY [facility] Last Admin: 04/29/18 10:17 Dose: 40 mg Guaifenesin (Mucinex La) 600 mg PO BID [facility] Last Admin: 04/29/18 17:50 Dose: 600 mg Isosorbide Mononitrate (Ismo) 20 mg PO DAILY [facility] Last Admin: 04/29/18 10:17 Dose: 20 mg Lactic Acid (Lac-Hydrin 12% Lotion (225 G)) 0 gm EXT Q12H [facility] Last Admin: 04/30/18 00:20 Dose: 1 applic Lactobacillus Acidophilus (Bacid Acidophilus) 1 cap PO BID [facility] Last Admin: 04/29/18 18:00 Dose: 1 cap Lisinopril (Zestril) 40 mg PO DAILY [facility] Last Admin: 04/29/18 10:17 Dose: 40 mg Rosuvastatin Calcium (Crestor) 5 mg PO HS [facility] Last Admin: 04/29/18 21:50 Dose: 5 mg Vitamin A (Vitamin A & D Oint Ud Foilpak) 1 ea TOP BID [facility] Last Admin: 04/29/18 17:50 Dose: 1 ea - Labs Labs: 04/25/18 06:40 04/30/18 08:16 PT 16.4 SECONDS (9.7-12.2) H 04/06/18 07:35 INR 1.5 04/06/18 07:35 APTT 28 SECONDS (21-34) 04/06/18 07:35 - Additional Findings Additional findings: - Constitutional Appears: No Acute Distress, Cachectic - Head Exam Head Exam: ATRAUMATIC, NORMAL INSPECTION, NORMOCEPHALIC - Eye Exam Eye Exam: Normal appearance - ENT Exam ENT Exam: Mucous Membranes Dry - Respiratory Exam Respiratory Exam: Clear to Ausculation Bilateral, NORMAL BREATHING PATTERN. absent: Rales, Rhonchi, Wheezes - Cardiovascular Exam Cardiovascular Exam: +S1, +S2 - Extremities Exam Extremities Exam: Full ROM. absent: Calf Tenderness, Pedal Edema Additional comments: Feet covered in dressing due to interdigit maceration. Per podiatry: Skin is noted to be dirty and xerotic. Interdigital maceration noted to be greatly improved in all interdigital spaces. Otherwise, no open lesions, wounds, maceration, xerosis, abnormal pigmentation or abnormal growths noted - Neurological Exam Neurological Exam: Alert, Awake - Psychiatric Exam Psychiatric exam: Normal Affect, Normal Mood - Skin Skin Exam: Dry, Intact, Normal Color, Warm Assessment and Plan - Assessment and Plan (Free Text) Assessment: Assessment: 58 year old male with PMHx of HTN, ETOH abuse, CHF, and CVA presented to the ED for foot pain and with altered mental status. Patient currently stable on medicine floor. No longer need daily labs, now weekly on Plan: JASWANT initial admission, patient in JASWANT, resolved, now returned likely 2/2 dehydration Nephrology consulted- Dr. Lizarraga- recs below Avoid nephrotoxic agents (NSAIDS, phosphate enema) will hold chlorthiladone 25 mg daily Will hold fluids due to underly CHF, will encourage gentle PO hydration Renal artery duplex - possible significant GLADIS - Renal ultrasound (04/05): non-obstructive left nephrolithiasis. Otherwise normal ultrasound Left Foot Hammertoes and Heel Spurs Pt ambulates with help of rolling walker. Tolerating PT. No evidence of cellulitis, lower extremities show blanchable erythema Podiatry, Dr. Gomez consulted- signed off; reconsult if necessary; no need for acute surgical intervention Betadine soak leonidas interphalangel toe spaces w/ krillex wrap Blood culture (04/04): No growth x 5 days Lower extremities venous doppler: negative for DVT Foot Xray (04/03): Degenerative changes of the forefoot. No acute fractures, subluxations. B/l hammertoe deformities are identified diffusely. Severe hallux valgus deformity noted. Large plantar calcaneal spurs b/l. PT/ OT recommended for gait training Hypertension, uncontrolled Patient not compliant with previous discharge meds. Given decreased mental capacity at baseline, it is unlikely he will be capable of taking his daily medications without assistance. Imdur 20mg PO daily Lisinopril 10mg PO daily Amlodipine 10mg PO daily Hydralazine decreased from 75 mg PO TID to 50 mg BID. Continue to taper and monitor BP. Chlorthalidone 25 mg PO daily added Secondary HTN workup: Renal artery duplex 04/05/2018: RIGHT: Findings suggestive of hemodynamically significant stenosis of the right renal artery, proximal segment. LEFT: No definite hemodynamically significant stenosis involving the renal arteries as visualized. Dr. Lizarraga has been following this patient and does not feel that this is significant GLADIS that would require intervention/stent. HTN to continue to be managed medically. Plasma metanephrines WNL Aldosterone/Plasma renin activity: Aldosterone <1, Renin 12.25 ASA 81 mg PO daily Crestor 5 mg PO HS History of chronic alcohol abuse: Monitor for signs of withdrawal Serum alcohol level: < 10 Upon review of prior records, patient is known to present with altered mental status 2/2 alcohol intoxication UDS: Negative Ativan taper finished on 04/09 Continue Ativan 1mg IV Q6 PRN for withdrawal sx Vitamin B12: 511m Folate levels: > 20 Thiamine, folic acid, multivitamin Ammonia level rechecked 04/11 - < 9 CT head (04/04): Chronic microvascular ischemic changes. 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 B/l basal ganglia and R thalamic lacunar infarcts. Focal encephalomalacia in the R duenas radiata. Pleural Effusion / Possible Pulmonary Infiltrates Pulmonology, Dr. Lebron consulted Abx Course finished - (Doxycycline 100 mg IV Q12H, Ceftriaxone 1mg IV Q24H) Atrovent INH Q6 PRN Legionella, s. pneumonia, influenza: Negative Mycoplasma Ig.19 (normal: < 0.9), Mycoplasma IgM: negative CXR (04/04): Limited patchy atelectasis medial right base with remaining lung liu clear. Stable prominent cardiac silhouette. CT chest (04/04): Small to medium size right-sided effusion and mild right basilar atelectasis. Small opacities are also present within the middle lobe possibly representing rounded atelectasis and/or infiltrates. There also appears to be some mild dependent atelectasis in the left lung base. Trace right-sided effusion. Minimal linear scarring changes left lingular region. Suspect mild underlying pulmonary venous congestive changes. There also appears to be a few scattered parenchymal calcifications likely representing granulomata within both lower lung liu as well. Cardiomegaly. CXR PA/Lateral 04/09 - Mild bibasilar atelectasis and/or infiltrate changes seen in the right mid to lower lung field with suspected mild left basilar atele ctasis HX of CHF with preserved EF Cardiology, Dr. Dobbs consulted Continue current regimen for BP control 1500 mL/day fluid restricted diet ProBNP: 29,300- increased from previous admissions Previous Echo (08/2017): LV normal size, borderline LV hypertrophy, Systolic func tion borderline, mild septal hypokinesis, LVEF >50% No additional echo indicated on this admission as patient is not showing symptoms of heart failure COPD exacerbation-resolved Pulmonology, Dr. Lebron consulted Duoneb Q6 PRN Atrovent INH Q6 PRN Patient is stable, O2 % saturation: 95-100% on room air Scabies - Resolved Off contact precautions Benadryl cream BID prn for pruritis Vitamin A and D TOP BID Prophylaxis/diet: DVT: Lovenox 40units qd, SCDs GI: Protonix 40mg IVP daily - discontinued, no longer needed Dispo: Pending Medicaid approval. CM helping to secure [facility] placement. <Ryland Pearson - Last Filed: 05/04/18 22:39> Objective - Vital Signs/Intake and Output Vital Signs (last 24 hours): Temp Pulse Resp BP Pulse Ox 97.6 F 67 20 111/75 98 05/04/18 08:41 05/04/18 08:41 05/04/18 08:41 05/04/18 08:41 05/04/18 08:41 Intake and Output: 05/04/18 05/05/18 18:59 06:59 Intake Total 500 Balance 500 - Medications Medications: Current Medications Amlodipine Besylate (Norvasc) 10 mg PO DAILY [facility] Last Admin: 05/04/18 09:36 Dose: 10 mg Aspirin (Ecotrin) 81 mg PO DAILY [facility] Last Admin: 05/04/18 09:36 Dose: 81 mg Enoxaparin Sodium (Lovenox) 40 mg SC DAILY [facility] Last Admin: 05/04/18 09:37 Dose: 40 mg Guaifenesin (Mucinex La) 600 mg PO BID [facility] Last Admin: 05/04/18 17:38 Dose: 600 mg Isosorbide Mononitrate (Ismo) 20 mg PO DAILY [facility] Last Admin: 05/04/18 09:37 Dose: 20 mg Lactic Acid (Lac-Hydrin 12% Lotion (225 G)) 0 gm EXT Q12H [facility] Last Admin: 05/04/18 12:15 Dose: 1 applic Lactobacillus Acidophilus (Bacid Acidophilus) 1 cap PO BID [facility] Last Admin: 05/04/18 17:38 Dose: 1 cap Lisinopril (Zestril) 40 mg PO DAILY [facility] Last Admin: 05/04/18 09:36 Dose: 40 mg Rosuvastatin Calcium (Crestor) 5 mg PO HS [facility] Last Admin: 05/03/18 21:32 Dose: 5 mg Vitamin A (Vitamin A & D Oint Ud Foilpak) 1 ea TOP BID [facility] Last Admin: 05/04/18 17:39 Dose: 1 ea - Labs Labs: 05/04/18 11:21 05/04/18 07:11 PT 16.4 SECONDS (9.7-12.2) H 04/06/18 07:35 INR 1.5 04/06/18 07:35 APTT 28 SECONDS (21-34) 04/06/18 07:35 Attending/Attestation - Attestation I have personally seen and examined this patient.: Yes I have fully participated in the care of the patient.: Yes I have reviewed all pertinent clinical information, including history, physical exam and plan: Yes Notes (Text): 05/04/18 22:38 This is a late entry. Care of this patient was gone over in detail with resident Dr. Nash. Pocket Creaser Charly is working towards placement. Ryland Pearson D.O.
[2018-04-30] MEDS: Enoxaparin 40 mg Syringe SC SCH (11:04)
[2018-05-01] MEDS: Ammonium Lactate 12% Lotion (225 g) EXT SCH ×3 (00:23→14:11)
[2018-05-01] MEDS: Enoxaparin 40 mg Syringe SC SCH (10:49)
[2018-05-01] MEDS: Lactobacillus Acidophilus 500 MU Cap PO SCH ×2 (10:49→17:41)
[2018-05-01] MEDS: Vitamins A & D Oint UD Foilpak TOP SCH ×2 (10:50→17:41)
[2018-05-01] MEDS: guaiFENesin 600 mg ER Tab PO SCH ×2 (10:50→17:41)
--- NOTE | 2018-05-01 10:57 | CP.PCM.PN ---
<Buzz Nash - Last Filed: 05/01/18 10:54> Subjective - Date & Time of Evaluation Date of Evaluation: 05/01/18 Time of Evaluation: 10:54 - Subjective Subjective: Hospitalist Service Pt seen and examined at bedside. Pt denies any acute events overnight. Denies CP SOB FC NV Objective - Vital Signs/Intake and Output Vital Signs (last 24 hours): Temp Pulse Resp BP Pulse Ox 97.9 F 77 20 119/77 97 04/30/18 23:33 04/30/18 23:33 04/30/18 23:33 04/30/18 23:33 04/30/18 23:33 Intake and Output: 05/01/18 05/01/18 06:59 18:59 Intake Total 530 Output Total 300 Balance 230 - Medications Medications: Current Medications Amlodipine Besylate (Norvasc) 10 mg PO DAILY [facility] Last Admin: 05/01/18 10:50 Dose: 10 mg Aspirin (Ecotrin) 81 mg PO DAILY [facility] Last Admin: 05/01/18 10:50 Dose: 81 mg Enoxaparin Sodium (Lovenox) 40 mg SC DAILY [facility] Last Admin: 05/01/18 10:49 Dose: 40 mg Guaifenesin (Mucinex La) 600 mg PO BID [facility] Last Admin: 05/01/18 10:50 Dose: 600 mg Isosorbide Mononitrate (Ismo) 20 mg PO DAILY [facility] Last Admin: 05/01/18 10:49 Dose: 20 mg Lactic Acid (Lac-Hydrin 12% Lotion (225 G)) 0 gm EXT Q12H [facility] Last Admin: 05/01/18 10:50 Dose: 1 applic Lactobacillus Acidophilus (Bacid Acidophilus) 1 cap PO BID [facility] Last Admin: 05/01/18 10:49 Dose: 1 cap Lisinopril (Zestril) 40 mg PO DAILY [facility] Last Admin: 05/01/18 10:50 Dose: 40 mg Rosuvastatin Calcium (Crestor) 5 mg PO HS [facility] Last Admin: 04/30/18 21:42 Dose: 5 mg Vitamin A (Vitamin A & D Oint Ud Foilpak) 1 ea TOP BID [facility] Last Admin: 05/01/18 10:50 Dose: 1 ea - Labs Labs: 04/25/18 06:40 11/26/18 08:16 PT 16.4 SECONDS (9.7-12.2) H 04/06/18 07:35 INR 1.5 04/06/18 07:35 APTT 28 SECONDS (21-34) 04/06/18 07:35 - Additional Findings Additional findings: - Constitutional Appears: No Acute Distress, Cachectic - Head Exam Head Exam: ATRAUMATIC, NORMAL INSPECTION, NORMOCEPHALIC - Eye Exam Eye Exam: Normal appearance - ENT Exam ENT Exam: Mucous Membranes Dry - Respiratory Exam Respiratory Exam: Clear to Ausculation Bilateral, NORMAL BREATHING PATTERN. absent: Rales, Rhonchi, Wheezes - Cardiovascular Exam Cardiovascular Exam: +S1, +S2 - Extremities Exam Extremities Exam: Full ROM. absent: Calf Tenderness, Pedal Edema Additional comments: Feet covered in dressing due to interdigit maceration. Per podiatry: Skin is noted to be dirty and xerotic. Interdigital maceration noted to be greatly improved in all interdigital spaces. Otherwise, no open lesions, wounds, maceration, xerosis, abnormal pigmentation or abnormal growths noted - Neurological Exam Neurological Exam: Alert, Awake - Psychiatric Exam Psychiatric exam: Normal Affect, Normal Mood - Skin Skin Exam: Dry, Intact, Normal Color, Warm Assessment and Plan - Assessment and Plan (Free Text) Assessment: 58 year old male with PMHx of HTN, ETOH abuse, CHF, and CVA presented to the ED for foot pain and with altered mental status. Patient currently stable on medicine floor. No longer need daily labs, now weekly on Plan: JASWANT initial admission, patient in JASWANT, resolved, now returned likely 2/2 dehydration Nephrology consulted- Dr. Lizarraga- recs below Avoid nephrotoxic agents (NSAIDS, phosphate enema) will hold chlorthiladone 25 mg daily Will hold fluids due to underly CHF, will encourage gentle PO hydration Renal artery duplex - possible significant GLADIS - Renal ultrasound (04/05): non-obstructive left nephrolithiasis. Otherwise normal ultrasound Left Foot Hammertoes and Heel Spurs Pt ambulates with help of rolling walker. Tolerating PT. No evidence of cellulitis, lower extremities show blanchable erythema Podiatry, Dr. Gomez consulted- signed off; reconsult if necessary; no need for acute surgical intervention Betadine soak leonidas interphalangel toe spaces w/ krillex wrap Blood culture (04/04): No growth x 5 days Lower extremities venous doppler: negative for DVT Foot Xray (04/03): Degenerative changes of the forefoot. No acute fractures, subluxations. B/l hammertoe deformities are identified diffusely. Severe hallux valgus deformity noted. Large plantar calcaneal spurs b/l. PT/ OT recommended for gait training Hypertension, uncontrolled Patient not compliant with previous discharge meds. Given decreased mental capacity at baseline, it is unlikely he will be capable of taking his daily medications without assistance. Imdur 20mg PO daily Lisinopril 10mg PO daily Amlodipine 10mg PO daily Hydralazine decreased from 75 mg PO TID to 50 mg BID. Continue to taper and mon itor BP. Chlorthalidone 25 mg PO daily added Secondary HTN workup: Renal artery duplex 04/05/2018: RIGHT: Findings suggestive of hemodynamically significant stenosis of the right renal artery, proximal segment. LEFT: No definite hemodynamically significant stenosis involving the renal arteries as v isualized. Dr. Lizarraga has been following this patient and does not feel that this is significant GLADIS that would require intervention/stent. HTN to continue to be managed medically. Plasma metanephrines WNL Aldosterone/Plasma renin activity: Aldosterone <1, Renin 12.25 ASA 81 mg PO daily Crestor 5 mg PO HS History of chronic alcohol abuse: Monitor for signs of withdrawal Serum alcohol level: < 10 Upon review of prior records, patient is known to present with altered mental status 2/2 alcohol intoxication UDS: Negative Ativan taper finished on 04/09 Continue Ativan 1mg IV Q6 PRN for withdrawal sx Vitamin B12: 511m Folate levels: > 20 Thiamine, folic acid, multivitamin Ammonia level rechecked 04/11 - < 9 CT head (04/04): Chronic microvascular ischemic changes. 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 B/l basal ganglia and R thalamic lacunar infarcts. Focal encephalomalacia in the R duenas radiata. Pleural Effusion / Possible Pulmonary Infiltrates Pulmonology, Dr. Lebron consulted Abx Course finished - (Doxycycline 100 mg IV Q12H, Ceftriaxone 1mg IV Q24H) Atrovent INH Q6 PRN Legionella, s. pneumonia, influenza: Negative Mycoplasma Ig.19 (normal: < 0.9), Mycoplasma IgM: negative CXR (04/04): Limited patchy atelectasis medial right base with remaining lung liu clear. Stable prominent cardiac silhouette. CT chest (04/04): Small to medium size right-sided effusion and mild right basilar atelectasis. Small opacities are also present within the middle lobe possibly representing rounded atelectasis and/or infiltrates. There also appears to be some mild dependent atelectasis in the left lung base. Trace right-sided effusion. Minimal linear scarring changes left lingular region. Suspect mild underlying pulmonary venous congestive changes. There also appears to be a few scattered parenchymal calcifications likely representing granulomata within both lower lung liu as well. Cardiomegaly. CXR PA/Lateral 04/09 - Mild bibasilar atelectasis and/or infiltrate changes seen in the right mid to lower lung field with suspected mild left basilar atelectasis HX of CHF with preserved EF Cardiology, Dr. Dobbs consulted Continue current regimen for BP control 1500 mL/day fluid restricted diet ProBNP: 29,300- increased from previous admissions Previous Echo (08/2017): LV normal size, borderline LV hypertrophy, Systolic function borderline, mild septal hypokinesis, LVEF >50% No additional echo indicated on this admission as patient is not showing symptoms of heart failure COPD exacerbation-resolved Pulmonology, Dr. Lebron consulted Duoneb Q6 PRN Atrovent INH Q6 PRN Patient is stable, O2 % saturation: 95-100% on room air Scabies - Resolved Off contact precautions Benadryl cream BID prn for pruritis Vitamin A and D TOP BID Prophylaxis/diet: DVT: Lovenox 40units qd, SCDs GI: Protonix 40mg IVP daily - discontinued, no longer needed Dispo: Pending Medicaid approval. CM helping to secure [facility] placement. <Ryland Pearson - Last Filed: 05/04/18 22:42> Objective - Vital Signs/Intake and Output Vital Signs (last 24 hours): Temp Pulse Resp BP Pulse Ox 97.6 F 67 20 111/75 98 05/04/18 08:41 05/04/18 08:41 05/04/18 08:41 05/04/18 08:41 05/04/18 08:41 Intake and Output: 05/04/18 05/05/18 18:59 06:59 Intake Total 500 Balance 500 - Medications Medications: Current Medications Amlodipine Besylate (Norvasc) 10 mg PO DAILY [facility] Last Admin: 05/04/18 09:36 Dose: 10 mg Aspirin (Ecotrin) 81 mg PO DAILY [facility] Last Admin: 05/04/18 09:36 Dose: 81 mg Enoxaparin Sodium (Lovenox) 40 mg SC DAILY [facility] Last Admin: 05/04/18 09:37 Dose: 40 mg Guaifenesin (Mucinex La) 600 mg PO BID [facility] Last Admin: 05/04/18 17:38 Dose: 600 mg Isosorbide Mononitrate (Ismo) 20 mg PO DAILY [facility] Last Admin: 05/04/18 09:37 Dose: 20 mg Lactic Acid (Lac-Hydrin 12% Lotion (225 G)) 0 gm EXT Q12H [facility] Last Admin: 05/04/18 12:15 Dose: 1 applic Lactobacillus Acidophilus (Bacid Acidophilus) 1 cap PO BID [facility] Last Admin: 05/04/18 17:38 Dose: 1 cap Lisinopril (Zestril) 40 mg PO DAILY [facility] Last Admin: 05/04/18 09:36 Dose: 40 mg Rosuvastatin Calcium (Crestor) 5 mg PO HS [facility] Last Admin: 05/03/18 21:32 Dose: 5 mg Vitamin A (Vitamin A & D Oint Ud Foilpak) 1 ea TOP BID [facility] Last Admin: 05/04/18 17:39 Dose: 1 ea - Labs Labs: 05/04/18 11:21 05/04/18 07:11 PT 16.4 SECONDS (9.7-12.2) H 04/06/18 07:35 INR 1.5 04/06/18 07:35 APTT 28 SECONDS (21-34) 04/06/18 07:35 Attending/Attestation - Attestation I have personally seen and examined this patient.: Yes I have fully participated in the care of the patient.: Yes I have reviewed all pertinent clinical information, including history, physical exam and plan: Yes Notes (Text): 05/04/18 22:41 This is a late entry. Care of this patient was gone over in detail with resident Dr. Nash. Clinical Massage Therapist Charly is working towards placement for patient. Ryland Pearson D.O.
[2018-05-02] MEDS: Ammonium Lactate 12% Lotion (225 g) EXT SCH ×2 (01:12→11:39)
[2018-05-02] MEDS: Lactobacillus Acidophilus 500 MU Cap PO SCH ×2 (09:12→17:37)
[2018-05-02] MEDS: Enoxaparin 40 mg Syringe SC SCH (09:12)
[2018-05-02] MEDS: Vitamins A & D Oint UD Foilpak TOP SCH ×2 (09:12→17:37)
[2018-05-02] MEDS: guaiFENesin 600 mg ER Tab PO SCH ×2 (09:12→17:37)
--- NOTE | 2018-05-02 11:46 | CP.PCM.PN ---
<Buzz Nash - Last Filed: 05/02/18 13:15> Subjective - Date & Time of Evaluation Date of Evaluation: 05/02/18 Time of Evaluation: 11:44 - Subjective Subjective: Hospitalist Service Pt seen and examined at bedside. Pt denies any acute events overnight, cannot recall date and time, denies cp sob fc nv Objective - Vital Signs/Intake and Output Vital Signs (last 24 hours): Temp Pulse Resp BP Pulse Ox 98.1 F 65 20 137/85 96 05/02/18 07:00 05/02/18 07:00 05/02/18 07:00 05/02/18 07:00 05/02/18 07:00 Intake and Output: 05/02/18 05/02/18 06:59 18:59 Intake Total 300 Output Total 450 Balance -150 - Medications Medications: Current Medications Amlodipine Besylate (Norvasc) 10 mg PO DAILY [facility] Last Admin: 05/02/18 09:12 Dose: 10 mg Aspirin (Ecotrin) 81 mg PO DAILY [facility] Last Admin: 05/02/18 09:12 Dose: 81 mg Enoxaparin Sodium (Lovenox) 40 mg SC DAILY [facility] Last Admin: 05/02/18 09:12 Dose: 40 mg Guaifenesin (Mucinex La) 600 mg PO BID [facility] Last Admin: 05/02/18 09:12 Dose: 600 mg Isosorbide Mononitrate (Ismo) 20 mg PO DAILY [facility] Last Admin: 05/02/18 09:12 Dose: 20 mg Lactic Acid (Lac-Hydrin 12% Lotion (225 G)) 0 gm EXT Q12H [facility] Last Admin: 05/02/18 11:39 Dose: 1 applic Lactobacillus Acidophilus (Bacid Acidophilus) 1 cap PO BID [facility] Last Admin: 05/02/18 09:12 Dose: 1 cap Lisinopril (Zestril) 40 mg PO DAILY [facility] Last Admin: 05/02/18 09:12 Dose: 40 mg Rosuvastatin Calcium (Crestor) 5 mg PO HS [facility] Last Admin: 05/01/18 21:32 Dose: 5 mg Vitamin A (Vitamin A & D Oint Ud Foilpak) 1 ea TOP BID [facility] Last Admin: 05/02/18 09:12 Dose: 1 ea - Labs Labs: 04/25/18 06:40 04/30/18 08:16 PT 16.4 SECONDS (9.7-12.2) H 04/06/18 07:35 INR 1.5 04/06/18 07:35 APTT 28 SECONDS (21-34) 04/06/18 07:35 - Additional Findings Additional findings: - Constitutional Appears: No Acute Distress, Cachectic - Head Exam Head Exam: ATRAUMATIC, NORMAL INSPECTION, NORMOCEPHALIC - Eye Exam Eye Exam: Normal appearance - ENT Exam ENT Exam: Mucous Membranes Dry - Respiratory Exam Respiratory Exam: Clear to Ausculation Bilateral, NORMAL BREATHING PATTERN. absent: Rales, Rhonchi, Wheezes - Cardiovascular Exam Cardiovascular Exam: +S1, +S2 - Extremities Exam Extremities Exam: Full ROM. absent: Calf Tenderness, Pedal Edema Additional comments: Feet covered in dressing due to interdigit maceration. Per podiatry: Skin is noted to be dirty and xerotic. Interdigital maceration noted to be greatly improved in all interdigital spaces. Otherwise, no open lesions, wounds, maceration, xerosis, abnormal pigmentation or abnormal growths noted - Neurological Exam Neurological Exam: Alert, Awake - Psychiatric Exam Psychiatric exam: Normal Affect, Normal Mood - Skin Skin Exam: Dry, Intact, Normal Color, Warm Assessment and Plan - Assessment and Plan (Free Text) Assessment: 58 year old male with PMHx of HTN, ETOH abuse, CHF, and CVA presented to the ED for foot pain and with altered mental status. Patient currently stable on medicine floor. No longer need daily labs, now weekly on Plan: JASWANT initial admission, patient in JASWANT, resolved, now returned likely 2/2 dehydration Nephrology consulted- Dr. Lizarraga- recs below Avoid nephrotoxic agents (NSAIDS, phosphate enema) will hold chlorthiladone 25 mg daily Will hold fluids due to underly CHF, will encourage gentle PO hydration Renal artery duplex - possible significant GLADIS - Renal ultrasound (04/05): non-obstructive left nephrolithiasis. Otherwise normal ultrasound Left Foot Hammertoes and Heel Spurs Pt ambulates with help of rolling walker. Tolerating PT. No evidence of cellulitis, lower extremities show blanchable erythema Podiatry, Dr. Gomez consulted- signed off; reconsult if necessary; no need for acute surgical intervention Betadine soak leonidas interphalangel toe spaces w/ krillex wrap Blood culture (04/04): No growth x 5 days Lower extremities venous doppler: negative for DVT Foot Xray (04/03): Degenerative changes of the forefoot. No acute fractures, subluxations. B/l hammertoe deformities are identified diffusely. Severe hallux valgus deformity noted. Large plantar calcaneal spurs b/l. PT/ OT recommended for gait training Hypertension, uncontrolled Patient not compliant with previous discharge meds. Given decreased mental capacity at baseline, it is unlikely he will be capable of taking his daily medications without assistance. Imdur 20mg PO daily Lisinopril 10mg PO daily Amlodipine 10mg PO daily Hydralazine decreased from 75 mg PO TID to 50 mg BID. Continue to taper and monitor BP. Chlorthalidone 25 mg PO daily added Secondary HTN workup: Renal artery duplex 04/05/2018: RIGHT: Findings suggestive of hemodynamically significant stenosis of the right renal artery, proximal segment. LEFT: No definite hemodynamically significant stenosis involving the renal arteries as visualized. Dr. Lizarraga has been following this patient and does not feel that this is significant GLADIS that would require intervention/stent. HTN to continue to be managed medically. Plasma metanephrines WNL Aldosterone/Plasma renin activity: Aldosterone <1, Renin 12.25 ASA 81 mg PO daily Crestor 5 mg PO HS History of chronic alcohol abuse: Monitor for signs of withdrawal Serum alcohol level: < 10 Upon review of prior records, patient is known to present with altered mental status 2/2 alcohol intoxication UDS: Negative Ativan taper finished on 04/09 Continue Ativan 1mg IV Q6 PRN for withdrawal sx Vitamin B12: 511m Folate levels: > 20 Thiamine, folic acid, multivitamin Ammonia level rechecked 04/11 - < 9 CT head (04/04): Chronic microvascular ischemic changes. 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 B/l basal ganglia and R thalamic lacunar infarcts. Focal encephalomalacia in the R duenas radiata. Pleural Effusion / Possible Pulmonary Infiltrates Pulmonology, Dr. Lebron consulted Abx Course finished - (Doxycycline 100 mg IV Q12H, Ceftriaxone 1mg IV Q24H) Atrovent INH Q6 PRN Legionella, s. pneumonia, influenza: Negative Mycoplasma Ig.19 (normal: < 0.9), Mycoplasma IgM: negative CXR (04/04): Limited patchy atelectasis medial right base with remaining lung liu clear. Stable prominent cardiac silhouette. CT chest (04/04): Small to medium size right-sided effusion and mild right basilar atelectasis. Small opacities are also present within the middle lobe possibly representing rounded atelectasis and/or infiltrates. There also appears to be some mild dependent atelectasis in the left lung base. Trace right-sided effusion. Minimal linear scarring changes left lingular region. Suspect mild underlying pulmonary venous congestive changes. There also appears to be a few scattered parenchymal calcifications likely representing granulomata within both lower lung liu as well. Cardiomegaly. CXR PA/Lateral 04/09 - Mild bibasilar atelectasis and/or infiltrate changes seen in the right mid to lower lung field with suspected mild left basilar atelectasis HX of CHF with preserved EF Cardiology, Dr. Dobbs consulted Continue current regimen for BP control 1500 mL/day fluid restricted diet ProBNP: 29,300- increased from previous admissions Previous Echo (08/2017): LV normal size, borderline LV hypertrophy, Systolic function borderline, mild septal hypokinesis, LVEF >50% No additional echo indicated on this admission as patient is not showing symptoms of heart failure COPD exacerbation-resolved Pulmonology, Dr. Lebron consulted Duoneb Q6 PRN Atrovent INH Q6 PRN Patient is stable, O2 % saturation: 95-100% on room air Scabies - Resolved Off contact precautions Benadryl cream BID prn for pruritis Vitamin A and D TOP BID Prophylaxis/diet: DVT: Lovenox 40units qd, SCDs GI: Protonix 40mg IVP daily - discontinued, no longer needed Dispo: Pending Medicaid approval. CM helping to secure retirement placement. <Ryland Pearson - Last Filed: 05/04/18 22:40> Objective - Vital Signs/Intake and Output Vital Signs (last 24 hours): Temp Pulse Resp BP Pulse Ox 97.6 F 67 20 111/75 98 05/04/18 08:41 05/04/18 08:41 05/04/18 08:41 05/04/18 08:41 05/04/18 08:41 Intake and Output: 05/04/18 05/05/18 18:59 06:59 Intake Total 500 Balance 500 - Medications Medications: Current Medications Amlodipine Besylate (Norvasc) 10 mg PO DAILY [facility] Last Admin: 05/04/18 09:36 Dose: 10 mg Aspirin (Ecotrin) 81 mg PO DAILY [facility] Last Admin: 05/04/18 09:36 Dose: 81 mg Enoxaparin Sodium (Lovenox) 40 mg SC DAILY [facility] Last Admin: 05/04/18 09:37 Dose: 40 mg Guaifenesin (Mucinex La) 600 mg PO BID [facility] Last Admin: 05/04/18 17:38 Dose: 600 mg Isosorbide Mononitrate (Ismo) 20 mg PO DAILY [facility] Last Admin: 05/04/18 09:37 Dose: 20 mg Lactic Acid (Lac-Hydrin 12% Lotion (225 G)) 0 gm EXT Q12H [facility] Last Admin: 05/04/18 12:15 Dose: 1 applic Lactobacillus Acidophilus (Bacid Acidophilus) 1 cap PO BID [facility] Last Admin: 05/04/18 17:38 Dose: 1 cap Lisinopril (Zestril) 40 mg PO DAILY [facility] Last Admin: 05/04/18 09:36 Dose: 40 mg Rosuvastatin Calcium (Crestor) 5 mg PO HS [facility] Last Admin: 05/03/18 21:32 Dose: 5 mg Vitamin A (Vitamin A & D Oint Ud Foilpak) 1 ea TOP BID [facility] Last Admin: 05/04/18 17:39 Dose: 1 ea - Labs Labs: 05/04/18 11:21 05/04/18 07:11 PT 16.4 SECONDS (9.7-12.2) H 04/06/18 07:35 INR 1.5 04/06/18 07:35 APTT 28 SECONDS (21-34) 04/06/18 07:35 Attending/Attestation - Attestation I have personally seen and examined this patient.: Yes I have fully participated in the care of the patient.: Yes I have reviewed all pertinent clinical information, including history, physical exam and plan: Yes Notes (Text): 05/04/18 22:39 This is a late entry. Care of this patient was gone over in detail with resident Dr. Nash. [employer] is working towards placement. Ryland Pearson D.O.
[2018-05-03] MEDS: Ammonium Lactate 12% Lotion (225 g) EXT SCH ×2 (00:08→12:19)
[2018-05-03] MEDS: Lactobacillus Acidophilus 500 MU Cap PO SCH ×2 (09:23→17:09)
[2018-05-03] MEDS: Vitamins A & D Oint UD Foilpak TOP SCH ×2 (09:23→17:09)
[2018-05-03] MEDS: Enoxaparin 40 mg Syringe SC SCH (09:24)
[2018-05-03] MEDS: guaiFENesin 600 mg ER Tab PO SCH ×2 (09:24→17:09)
--- NOTE | 2018-05-03 13:24 | CP.PCM.PN ---
<Buzz Nash - Last Filed: 05/03/18 16:23> Subjective - Date & Time of Evaluation Date of Evaluation: 05/03/18 Time of Evaluation: 13:21 - Subjective Subjective: Hospitalist Service Pt seen and examined at bedside, denies cp sob fc nv, still limited cognition Objective - Vital Signs/Intake and Output Vital Signs (last 24 hours): Temp Pulse Resp BP Pulse Ox 97.4 F L 82 20 135/86 99 05/03/18 08:13 05/03/18 08:13 05/03/18 08:13 05/03/18 08:13 05/03/18 08:13 Intake and Output: 05/03/18 05/03/18 06:59 18:59 Intake Total 300 Balance 300 - Medications Medications: Current Medications Amlodipine Besylate (Norvasc) 10 mg PO DAILY [facility] Last Admin: 05/03/18 09:24 Dose: 10 mg Aspirin (Ecotrin) 81 mg PO DAILY [facility] Last Admin: 05/03/18 09:24 Dose: 81 mg Enoxaparin Sodium (Lovenox) 40 mg SC DAILY [facility] Last Admin: 05/03/18 09:24 Dose: 40 mg Guaifenesin (Mucinex La) 600 mg PO BID [facility] Last Admin: 05/03/18 09:24 Dose: 600 mg Isosorbide Mononitrate (Ismo) 20 mg PO DAILY [facility] Last Admin: 05/03/18 09:24 Dose: 20 mg Lactic Acid (Lac-Hydrin 12% Lotion (225 G)) 0 gm EXT Q12H [facility] Last Admin: 05/03/18 12:19 Dose: 1 applic Lactobacillus Acidophilus (Bacid Acidophilus) 1 cap PO BID [facility] Last Admin: 05/03/18 09:23 Dose: 1 cap Lisinopril (Zestril) 40 mg PO DAILY [facility] Last Admin: 05/03/18 09:24 Dose: 40 mg Rosuvastatin Calcium (Crestor) 5 mg PO HS [facility] Last Admin: 05/02/18 21:31 Dose: 5 mg Vitamin A (Vitamin A & D Oint Ud Foilpak) 1 ea TOP BID [facility] Last Admin: 05/03/18 09:23 Dose: 1 ea - Labs Labs: 04/25/18 06:40 04/30/18 08:16 PT 16.4 SECONDS (9.7-12.2) H 04/06/18 07:35 INR 1.5 04/06/18 07:35 APTT 28 SECONDS (21-34) 04/06/18 07:35 - Additional Findings Additional findings: - Constitutional Appears: No Acute Distress, Cachectic - Head Exam Head Exam: ATRAUMATIC, NORMAL INSPECTION, NORMOCEPHALIC - Eye Exam Eye Exam: Normal appearance - ENT Exam ENT Exam: Mucous Membranes Dry - Respiratory Exam Respiratory Exam: Clear to Ausculation Bilateral, NORMAL BREATHING PATTERN. absent: Rales, Rhonchi, Wheezes - Cardiovascular Exam Cardiovascular Exam: +S1, +S2 - Extremities Exam Extremities Exam: Full ROM. absent: Calf Tenderness, Pedal Edema Additional comments: Feet covered in dressing due to interdigit maceration. Per podiatry: Skin is noted to be dirty and xerotic. Interdigital maceration noted to be greatly improved in all interdigital spaces. Otherwise, no open lesions, wounds, maceration, xerosis, abnormal pigmentation or abnormal growths noted - Neurological Exam Neurological Exam: Alert, Awake - Psychiatric Exam Psychiatric exam: Normal Affect, Normal Mood - Skin Skin Exam: Dry, Intact, Normal Color, Warm Assessment and Plan - Assessment and Plan (Free Text) Assessment: Assessment: 58 year old male with PMHx of HTN, ETOH abuse, CHF, and CVA presented to the ED for foot pain and with altered mental status. Patient currently stable on medicine floor. No longer need daily labs, now weekly on Plan: JASWANT initial admission, patient in JASWANT, resolved, now returned likely 2/2 dehydration Nephrology consulted- Dr. Lizarraga- recs below Avoid nephrotoxic agents (NSAIDS, phosphate enema) will hold chlorthiladone 25 mg daily Will hold fluids due to underly CHF, will encourage gentle PO hydration Renal artery duplex - possible significant GLADIS - Renal ultrasound (04/05): non-obstructive left nephrolithiasis. Otherwise normal ultrasound Left Foot Hammertoes and Heel Spurs Pt ambulates with help of rolling walker. Tolerating PT. No evidence of cellulitis, lower extremities show blanchable erythema Podiatry, Dr. Gomez consulted- signed off; reconsult if necessary; no need for acute surgical intervention Betadine soak leonidas interphalangel toe spaces w/ krillex wrap Blood culture (04/04): No growth x 5 days Lower extremities venous doppler: negative for DVT Foot Xray (04/03): Degenerative changes of the forefoot. No acute fractures, subluxations. B/l hammertoe deformities are identified diffusely. Severe hallux valgus deformity noted. Large plantar calcaneal spurs b/l. PT/ OT recommended for gait training Hypertension, uncontrolled Patient not compliant with previous discharge meds. Given decreased mental capacity at baseline, it is unlikely he will be capable of taking his daily medications without assistance. Imdur 20mg PO daily Lisinopril 10mg PO daily Amlodipine 10mg PO daily Hydralazine decreased from 75 mg PO TID to 50 mg BID. Continue to taper and monitor BP. Chlorthalidone 25 mg PO daily added Secondary HTN workup: Renal artery duplex 04/05/2018: RIGHT: Findings suggestive of hemodynamically significant stenosis of the right renal artery, proximal segment. LEFT: No definite hemodynamically significant stenosis involving the renal arteries as visualized. Dr. Lizarraga has been following this patient and does not feel that this is significant GLADIS that would require intervention/stent. HTN to continue to be managed medically. Plasma metanephrines WNL Aldosterone/Plasma renin activity: Aldosterone <1, Renin 12.25 ASA 81 mg PO daily Crestor 5 mg PO HS History of chronic alcohol abuse: Monitor for signs of withdrawal Serum alcohol level: < 10 Upon review of prior records, patient is known to present with altered mental status 2/2 alcohol intoxication UDS: Negative Ativan taper finished on 04/09 Continue Ativan 1mg IV Q6 PRN for withdrawal sx Vitamin B12: 511m Folate levels: > 20 Thiamine, folic acid, multivitamin Ammonia level rechecked 04/11 - < 9 CT head (04/04): Chronic microvascular ischemic changes. 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 B/l basal ganglia and R thalamic lacunar infarcts. Focal encephalomalacia in the R duenas radiata. Pleural Effusion / Possible Pulmonary Infiltrates Pulmonology, Dr. Lebron consulted Abx Course finished - (Doxycycline 100 mg IV Q12H, Ceftriaxone 1mg IV Q24H) Atrovent INH Q6 PRN Legionella, s. pneumonia, influenza: Negative Mycoplasma Ig.19 (normal: < 0.9), Mycoplasma IgM: negative CXR (04/04): Limited patchy atelectasis medial right base with remaining lung liu clear. Stable prominent cardiac silhouette. CT chest (04/04): Small to medium size right-sided effusion and mild right basilar atelectasis. Small opacities are also present within the middle lobe possibly representing rounded atelectasis and/or infiltrates. There also appears to be some mild dependent atelectasis in the left lung base. Trace right-sided effusion. Minimal linear scarring changes left lingular region. Suspect mild underlying pulmonary venous congestive changes. There also appears to be a few scattered parenchymal calcifications likely representing granulomata within both lower lung liu as well. Cardiomegaly. CXR PA/Lateral 04/09 - Mild bibasilar atelectasis and/or infiltrate changes seen in the right mid to lower lung field with suspected mild left basilar atelectasis HX of CHF with preserved EF Cardiology, Dr. Dobbs consulted Continue current regimen for BP control 1500 mL/day fluid restricted diet ProBNP: 29,300- increased from previous admissions Previous Echo (08/2017): LV normal size, borderline LV hypertrophy, Systolic function borderline, mild septal hypokinesis, LVEF >50% No additional echo indicated on this admission as patient is not showing symptoms of heart failure COPD exacerbation-resolved Pulmonology, Dr. Lebron consulted Duoneb Q6 PRN Atrovent INH Q6 PRN Patient is stable, O2 % saturation: 95-100% on room air Scabies - Resolved Off contact precautions Benadryl cream BID prn for pruritis Vitamin A and D TOP BID Prophylaxis/diet: DVT: Lovenox 40units qd, SCDs GI: Protonix 40mg IVP daily - discontinued, no longer needed Dispo: Pending Medicaid approval. CM helping to secure fdc placement. <Dominique Richey V - Last Filed: 05/04/18 15:19> Objective - Vital Signs/Intake and Output Vital Signs (last 24 hours): Temp Pulse Resp BP Pulse Ox 97.6 F 67 20 111/75 98 05/04/18 08:41 05/04/18 08:41 05/04/18 08:41 05/04/18 08:41 05/04/18 08:41 Intake and Output: 05/04/18 05/04/18 06:59 18:59 Intake Total 500 Balance 500 - Medications Medications: Current Medications Amlodipine Besylate (Norvasc) 10 mg PO DAILY [facility] Last Admin: 05/04/18 09:36 Dose: 10 mg Aspirin (Ecotrin) 81 mg PO DAILY [facility] Last Admin: 05/04/18 09:36 Dose: 81 mg Enoxaparin Sodium (Lovenox) 40 mg SC DAILY [facility] Last Admin: 05/04/18 09:37 Dose: 40 mg Guaifenesin (Mucinex La) 600 mg PO BID [facility] Last Admin: 05/04/18 09:36 Dose: 600 mg Isosorbide Mononitrate (Ismo) 20 mg PO DAILY [facility] Last Admin: 05/04/18 09:37 Dose: 20 mg Lactic Acid (Lac-Hydrin 12% Lotion (225 G)) 0 gm EXT Q12H [facility] Last Admin: 05/04/18 12:15 Dose: 1 applic Lactobacillus Acidophilus (Bacid Acidophilus) 1 cap PO BID [facility] Last Admin: 05/04/18 09:37 Dose: 1 cap Lisinopril (Zestril) 40 mg PO DAILY [facility] Last Admin: 05/04/18 09:36 Dose: 40 mg Rosuvastatin Calcium (Crestor) 5 mg PO HS [facility] Last Admin: 05/03/18 21:32 Dose: 5 mg Vitamin A (Vitamin A & D Oint Ud Foilpak) 1 ea TOP BID [facility] Last Admin: 05/04/18 09:36 Dose: 1 ea - Labs Labs: 05/04/18 11:21 05/04/18 07:11 PT 16.4 SECONDS (9.7-12.2) H 04/06/18 07:35 INR 1.5 04/06/18 07:35 APTT 28 SECONDS (21-34) 04/06/18 07:35 Attending/Attestation - Attestation I have personally seen and examined this patient.: Yes I have fully participated in the care of the patient.: Yes I have reviewed all pertinent clinical information, including history, physical exam and plan: Yes Notes (Text): This is a late computer entry for 05/03/2018 Patient seen, examined, case discussed with medical transcriptionist. Patient is about the same and baseline. Patient denies any acute complaints. Podiatry has signed off. Patient is awaiting fdc placement given that he has gait disturbance cars rolling walker and is not an appropriate candidate for care home.
[2018-05-04] MEDS: Ammonium Lactate 12% Lotion (225 g) EXT SCH ×2 (00:45→12:15)
--- NOTE | 2018-05-04 06:53 | CP.PCM.PN ---
Subjective - Date & Time of Evaluation Date of Evaluation: 05/04/18 Time of Evaluation: 07:45 - Subjective Subjective: PGY 1 Medicine Progress Note for Hospitalist Dr. Holladn. Patient seen and examined at bedside. No overnight events reported. Patient lying in bed comfortably Patient has no complaints. Patient denies chest pain, SOB, abdominal pain, N/V, F/C, dysuria, hematuria. Patient states he has normal bowel movements. Objective - Vital Signs/Intake and Output Vital Signs (last 24 hours): Temp Pulse Resp BP Pulse Ox 97.5 F L 68 20 111/72 98 05/03/18 23:58 05/03/18 23:58 05/03/18 23:58 05/03/18 23:58 05/03/18 23:58 - Medications Medications: Current Medications Amlodipine Besylate (Norvasc) 10 mg PO DAILY [facility] Last Admin: 05/03/18 09:24 Dose: 10 mg Aspirin (Ecotrin) 81 mg PO DAILY [facility] Last Admin: 05/03/18 09:24 Dose: 81 mg Enoxaparin Sodium (Lovenox) 40 mg SC DAILY [facility] Last Admin: 05/03/18 09:24 Dose: 40 mg Guaifenesin (Mucinex La) 600 mg PO BID [facility] Last Admin: 05/03/18 17:09 Dose: 600 mg Isosorbide Mononitrate (Ismo) 20 mg PO DAILY [facility] Last Admin: 05/03/18 09:24 Dose: 20 mg Lactic Acid (Lac-Hydrin 12% Lotion (225 G)) 0 gm EXT Q12H [facility] Last Admin: 05/04/18 00:45 Dose: 1 applic Lactobacillus Acidophilus (Bacid Acidophilus) 1 cap PO BID [facility] Last Admin: 05/03/18 17:09 Dose: 1 cap Lisinopril (Zestril) 40 mg PO DAILY [facility] Last Admin: 05/03/18 09:24 Dose: 40 mg Rosuvastatin Calcium (Crestor) 5 mg PO HS [facility] Last Admin: 05/03/18 21:32 Dose: 5 mg Vitamin A (Vitamin A & D Oint Ud Foilpak) 1 ea TOP BID [facility] Last Admin: 05/03/18 17:09 Dose: 1 ea - Labs Labs: 04/25/18 06:40 04/30/18 08:16 PT 16.4 SECONDS (9.7-12.2) H 04/06/18 07:35 INR 1.5 04/06/18 07:35 APTT 28 SECONDS (21-34) 04/06/18 07:35 - Constitutional Appears: Non-toxic, No Acute Distress - Head Exam Head Exam: ATRAUMATIC, NORMAL INSPECTION, NORMOCEPHALIC - Eye Exam Eye Exam: Normal appearance - ENT Exam ENT Exam: Mucous Membranes Moist - Respiratory Exam Respiratory Exam: Clear to Ausculation Bilateral, NORMAL BREATHING PATTERN. absent: Rhonchi, Wheezes - Cardiovascular Exam Cardiovascular Exam: +S1, +S2. absent: Murmur - GI/Abdominal Exam GI & Abdominal Exam: Soft, Normal Bowel Sounds. absent: Firm, Guarding, Rigid - Extremities Exam Extremities Exam: Full ROM. absent: Calf Tenderness, Pedal Edema - Back Exam Back Exam: absent: CVA tenderness (L), CVA tenderness (R) - Neurological Exam Neurological Exam: Alert, Awake - Skin Skin Exam: Dry, Intact, Normal Color, Warm Additional comments: xerosis on b/l feet, abnormal pigmentation or abnormal growths noted, Rigid hammertoe contractures Assessment and Plan - Assessment and Plan (Free Text) Assessment: 58 year old male with PMHx of HTN, ETOH abuse, CHF, and CVA presented to the ED for foot pain and with altered mental status. Patient currently stable on medicine floor. No longer need daily labs, now weekly on Plan: [facility] - initial admission, patient in [facility], resolved, now returned likely 2/2 dehydration - Nephrology consulted- Dr. Lizarraga- recs below - Avoid nephrotoxic agents (NSAIDS, phosphate enema) - will hold chlorthiladone 25 mg daily - Will hold fluids due to underly CHF, will encourage gentle PO hydration - Renal artery duplex - possible significant GLADIS - - Renal ultrasound (04/05): non-obstructive left nephrolithiasis. Otherwise normal ultrasound Left Foot Hammertoes and Heel Spurs - Pt ambulates with help of rolling walker. Tolerating PT. - No evidence of cellulitis, lower extremities show blanchable erythema - Podiatry, Dr. Gomez consulted- signed off; reconsult if necessary; no need for acute surgical intervention - Betadine soak leonidas interphalangel toe spaces w/ krillex wrap - Blood culture (04/04): No growth x 5 days - Lower extremities venous doppler: negative for DVT - Foot Xray (04/03): Degenerative changes of the forefoot. No acute fractures, subluxations. B/l hammertoe deformities are identified diffusely. Severe hallux valgus deformity noted. Large plantar calcaneal spurs b/l. - PT/ OT recommended for gait training Hypertension, uncontrolled - Patient not compliant with previous discharge meds. Given decreased mental capacity at baseline, it is unlikely he will be capable of taking his daily - medications without assistance. - Imdur 20mg PO daily - Lisinopril 10mg PO daily - Amlodipine 10mg PO daily - Hydralazine decreased from 75 mg PO TID to 50 mg BID. Continue to taper and monitor BP. - Chlorthalidone 25 mg PO daily added - Secondary HTN workup: - Renal artery duplex 04/05/2018: RIGHT: Findings suggestive of hemodynamically significant stenosis of the right renal artery, proximal segment. LEFT: No - definite hemodynamically significant stenosis involving the renal arteries as visualized. - Dr. Lizarraga has been following this patient and does not feel that this is significant GLADIS that would require intervention/stent. HTN to continue to be managed -medically. - Plasma metanephrines WNL - Aldosterone/Plasma renin activity: Aldosterone <1, Renin 12.25 - ASA 81 mg PO daily - Crestor 5 mg PO HS History of chronic alcohol abuse: - Monitor for signs of withdrawal - Serum alcohol level: < 10 - Upon review of prior records, patient is known to present with altered mental status 2/2 alcohol intoxication - UDS: Negative - Ativan taper finished on 04/09 - Continue Ativan 1mg IV Q6 PRN for withdrawal sx - Vitamin B12: 511m Folate levels: > 20 - Thiamine, folic acid, multivitamin - Ammonia level rechecked 04/11 - < 9 - CT head (04/04): Chronic microvascular ischemic changes. 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 B/l basal ganglia and R thalamic lacunar infarcts. Focal encephalomalacia in the R duenas radiata. Pleural Effusion / Possible Pulmonary Infiltrates - Pulmonology, Dr. Lebron consulted - Abx Course finished - (Doxycycline 100 mg IV Q12H, Ceftriaxone 1mg IV Q24H) - Atrovent INH Q6 PRN - Legionella, s. pneumonia, influenza: Negative - Mycoplasma Ig.19 (normal: < 0.9), Mycoplasma IgM: negative - CXR (04/04): Limited patchy atelectasis medial right base with remaining lung liu clear. Stable prominent cardiac silhouette. - CT chest (04/04): Small to medium size right-sided effusion and mild right basilar atelectasis. Small opacities are also present within the middle lobe possibly -representing rounded atelectasis and/or infiltrates. There also appears to be some mild dependent atelectasis in the left lung base. Trace right-sided effusion. - Minimal linear scarring changes left lingular region. Suspect mild underlying pulmonary venous congestive changes. There also appears to be a few scattered parenchymal calcifications likely representing granulomata within both lower lung liu as well. Cardiomegaly. - CXR PA/Lateral 04/09 - Mild bibasilar atelectasis and/or infiltrate changes seen in the right mid to lower lung field with suspected mild left basilar atelectasis HX of CHF with preserved EF - Cardiology, Dr. Dobbs consulted - Continue current regimen for BP control - 1500 mL/day fluid restricted diet - ProBNP: 29,300- increased from previous admissions - Previous Echo (08/2017): LV normal size, borderline LV hypertrophy, Systolic function borderline, mild septal hypokinesis, LVEF >50% - No additional echo indicated on this admission as patient is not showing symptoms of heart failure COPD exacerbation-resolved - Pulmonology, Dr. Lebron consulted - Duoneb Q6 PRN - Atrovent INH Q6 PRN - Patient is stable, O2 % saturation: 95-100% on room air Scabies - Resolved - Off contact precautions - Benadryl cream BID prn for pruritis - Vitamin A and D TOP BID Prophylaxis/diet: - DVT: Lovenox 40units qd, SCDs - GI: Protonix 40mg IVP daily - discontinued, no longer needed Dispo: Pending Medicaid approval. CM helping to secure alf placement.
[2018-05-04 07:48] LABS: ALB/GLOB RATIO 0.9 (1.0-2.1); ALBUMIN 3.6 g/dL (3.5-5.0); ALT/SGPT 107 U/L (21-72); AST/SGOT 98 U/L (17-59); BLOOD UREA NITROGEN 63 mg/dL (9-20); CALCIUM 9.3 mg/dl (8.6-10.4); GFR NON-AFRICAN AMERICAN > 60
[2018-05-04] MEDS: Vitamins A & D Oint UD Foilpak TOP SCH ×2 (09:36→17:39)
[2018-05-04] MEDS: guaiFENesin 600 mg ER Tab PO SCH ×2 (09:36→17:38)
[2018-05-04] MEDS: Enoxaparin 40 mg Syringe SC SCH (09:37)
[2018-05-04] MEDS: Lactobacillus Acidophilus 500 MU Cap PO SCH ×2 (09:37→17:38)
[2018-05-04 11:29] LABS: BASO % 0.5 % (0.0-2.0); EOS # 0.2 K/uL (0.0-0.7); EOS % 2.7 % (0.0-4.0); HEMOGLOBIN 12.1 g/dL (12.0-18.0); LYMPH # 1.3 K/uL (1.0-4.3); LYMPH % 22.4 % (20.0-40.0); MEAN CELL VOLUME 88.4 fL (80.0-94.0); MEAN CORPUSCULAR HEMOGLOBIN 29.6 pg (27.0-31.0); MEAN CORPUSCULAR HGB CONC 33.5 g/dL (33.0-37.0); MEAN PLATELET VOLUME 8.6 fL (7.2-11.7); MONO # 0.9 K/uL (0.0-0.8); MONO % 15.8 % (0.0-10.0); NEUT # 3.5 K/uL (1.8-7.0); NEUT % 58.6 % (50.0-75.0); RBC 4.07 Mil/uL (4.40-5.90)
[2018-05-05] MEDS: Ammonium Lactate 12% Lotion (225 g) EXT SCH ×2 (00:18→12:38)
--- NOTE | 2018-05-05 00:41 | CP.PCM.PN ---
<Buzz Nash - Last Filed: 05/05/18 00:40> Subjective - Date & Time of Evaluation Date of Evaluation: 05/05/18 Time of Evaluation: 00:40 - Subjective Subjective: HOSPITALIST SERVICE Pt seen and examined at bedside, denies acute events overnight denies cp sob fc nv, still limited cognition Objective - Vital Signs/Intake and Output Vital Signs (last 24 hours): Temp Pulse Resp BP Pulse Ox 97.6 F 67 20 111/75 98 05/04/18 08:41 05/04/18 08:41 05/04/18 08:41 05/04/18 08:41 05/04/18 08:41 Intake and Output: 05/04/18 05/05/18 18:59 06:59 Intake Total 500 Balance 500 - Medications Medications: Current Medications Amlodipine Besylate (Norvasc) 10 mg PO DAILY [facility] Last Admin: 05/04/18 09:36 Dose: 10 mg Aspirin (Ecotrin) 81 mg PO DAILY [facility] Last Admin: 05/04/18 09:36 Dose: 81 mg Enoxaparin Sodium (Lovenox) 40 mg SC DAILY [facility] Last Admin: 05/04/18 09:37 Dose: 40 mg Guaifenesin (Mucinex La) 600 mg PO BID [facility] Last Admin: 05/04/18 17:38 Dose: 600 mg Isosorbide Mononitrate (Ismo) 20 mg PO DAILY [facility] Last Admin: 05/04/18 09:37 Dose: 20 mg Lactic Acid (Lac-Hydrin 12% Lotion (225 G)) 0 gm EXT Q12H [facility] Last Admin: 05/05/18 00:18 Dose: 1 applic Lactobacillus Acidophilus (Bacid Acidophilus) 1 cap PO BID [facility] Last Admin: 05/04/18 17:38 Dose: 1 cap Lisinopril (Zestril) 40 mg PO DAILY [facility] Last Admin: 05/04/18 09:36 Dose: 40 mg Rosuvastatin Calcium (Crestor) 5 mg PO HS [facility] Last Admin: 05/03/18 21:32 Dose: 5 mg Vitamin A (Vitamin A & D Oint Ud Foilpak) 1 ea TOP BID [facility] Last Admin: 05/04/18 17:39 Dose: 1 ea - Labs Labs: 05/04/18 11:21 05/04/18 07:11 PT 16.4 SECONDS (9.7-12.2) H 04/06/18 07:35 INR 1.5 04/06/18 07:35 APTT 28 SECONDS (21-34) 04/06/18 07:35 - Additional Findings Additional findings: - Constitutional Appears: Non-toxic, No Acute Distress - Head Exam Head Exam: ATRAUMATIC, NORMAL INSPECTION, NORMOCEPHALIC - Eye Exam Eye Exam: Normal appearance - ENT Exam ENT Exam: Mucous Membranes Moist - Respiratory Exam Respiratory Exam: Clear to Ausculation Bilateral, NORMAL BREATHING PATTERN. absent: Rhonchi, Wheezes - Cardiovascular Exam Cardiovascular Exam: +S1, +S2. absent: Murmur - GI/Abdominal Exam GI & Abdominal Exam: Soft, Normal Bowel Sounds. absent: Firm, Guarding, Rigid - Extremities Exam Extremities Exam: Full ROM. absent: Calf Tenderness, Pedal Edema - Back Exam Back Exam: absent: CVA tenderness (L), CVA tenderness (R) - Neurological Exam Neurological Exam: Alert, Awake - Skin Skin Exam: Dry, Intact, Normal Color, Warm Additional comments: xerosis on b/l feet, abnormal pigmentation or abnormal growths noted, Rigid hammertoe contractures Assessment and Plan - Assessment and Plan (Free Text) Assessment: Assessment: 58 year old male with PMHx of HTN, ETOH abuse, CHF, and CVA presented to the ED for foot pain and with altered mental status. Patient currently stable on medicine floor. No longer need daily labs, now weekly on Plan: [facility] - initial admission, patient in [place], resolved, now returned likely 2/2 dehydration - Nephrology consulted- Dr. Lizarraga- recs below - Avoid nephrotoxic agents (NSAIDS, phosphate enema) - will hold chlorthiladone 25 mg daily - Will hold fluids due to underly CHF, will encourage gentle PO hydration - Renal artery duplex - possible significant GLADIS - - Renal ultrasound (04/05): non-obstructive left nephrolithiasis. Otherwise normal ultrasound Left Foot Hammertoes and Heel Spurs - Pt ambulates with help of rolling walker. Tolerating PT. - No evidence of cellulitis, lower extremities show blanchable erythema - Podiatry, Dr. Gomez consulted- signed off; reconsult if necessary; no need for acute surgical intervention - Betadine soak leonidas interphalangel toe spaces w/ krillex wrap - Blood culture (04/04): No growth x 5 days - Lower extremities venous doppler: negative for DVT - Foot Xray (04/03): Degenerative changes of the forefoot. No acute fractures, subluxations. B/l hammertoe deformities are identified diffusely. Severe hallux valgus deformity noted. Large plantar calcaneal spurs b/l. - PT/ OT recommended for gait training Hypertension, uncontrolled - Patient not compliant with previous discharge meds. Given decreased mental capacity at baseline, it is unlikely he will be capable of taking his daily - medications without assistance. - Imdur 20mg PO daily - Lisinopril 10mg PO daily - Amlodipine 10mg PO daily - Hydralazine decreased from 75 mg PO TID to 50 mg BID. Continue to taper and monitor BP. - Chlorthalidone 25 mg PO daily added - Secondary HTN workup: - Renal artery duplex 04/05/2018: RIGHT: Findings suggestive of hemodynamically significant stenosis of the right renal artery, proximal segment. LEFT: No - definite hemodynamically significant stenosis involving the renal arteries as visualized. - Dr. Lizarraga has been following this patient and does not feel that this is significant GLADIS that would require intervention/stent. HTN to continue to be managed -medically. - Plasma metanephrines WNL - Aldosterone/Plasma renin activity: Aldosterone <1, Renin 12.25 - ASA 81 mg PO daily - Crestor 5 mg PO HS History of chronic alcohol abuse: - Monitor for signs of withdrawal - Serum alcohol level: < 10 - Upon review of prior records, patient is known to present with altered mental status 2/2 alcohol intoxication - UDS: Negative - Ativan taper finished on 04/09 - Continue Ativan 1mg IV Q6 PRN for withdrawal sx - Vitamin B12: 511m Folate levels: > 20 - Thiamine, folic acid, multivitamin - Ammonia level rechecked 04/11 - < 9 - CT head (04/04): Chronic microvascular ischemic changes. 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 B/l basal ganglia and R thalamic lacunar infarcts. Focal encephalomalacia in the R duenas radiata. Pleural Effusion / Possible Pulmonary Infiltrates - Pulmonology, Dr. Lebron consulted - Abx Course finished - (Doxycycline 100 mg IV Q12H, Ceftriaxone 1mg IV Q24H) - Atrovent INH Q6 PRN - Legionella, s. pneumonia, influenza: Negative - Mycoplasma Ig.19 (normal: < 0.9), Mycoplasma IgM: negative - CXR (04/04): Limited patchy atelectasis medial right base with remaining lung liu clear. Stable prominent cardiac silhouette. - CT chest (04/04): Small to medium size right-sided effusion and mild right basilar atelectasis. Small opacities are also present within the middle lobe possibly -representing rounded atelectasis and/or infiltrates. There also appears to be some mild dependent atelectasis in the left lung base. Trace right-sided effusion. - Minimal linear scarring changes left lingular region. Suspect mild underlying pulmonary venous congestive changes. There also appears to be a few scattered parenchymal calcifications likely representing granulomata within both lower lung liu as well. Cardiomegaly. - CXR PA/Lateral 04/09 - Mild bibasilar atelectasis and/or infiltrate changes seen in the right mid to lower lung field with suspected mild left basilar atelectasis HX of CHF with preserved EF - Cardiology, Dr. Dobbs consulted - Continue current regimen for BP control - 1500 mL/day fluid restricted diet - ProBNP: 29,300- increased from previous admissions - Previous Echo (08/2017): LV normal size, borderline LV hypertrophy, Systolic function borderline, mild septal hypokinesis, LVEF >50% - No additional echo indicated on this admission as patient is not showing symptoms of heart failure COPD exacerbation-resolved - Pulmonology, Dr. Lebron consulted - Duoneb Q6 PRN - Atrovent INH Q6 PRN - Patient is stable, O2 % saturation: 95-100% on room air Scabies - Resolved - Off contact precautions - Benadryl cream BID prn for pruritis - Vitamin A and D TOP BID Prophylaxis/diet: - DVT: Lovenox 40units qd, SCDs - GI: Protonix 40mg IVP daily - discontinued, no longer needed Dispo: Pending Medicaid approval. CM helping to secure long-term placement. <Anthony Turpin - Last Filed: 05/05/18 17:09> Objective - Vital Signs/Intake and Output Vital Signs (last 24 hours): Temp Pulse Resp BP Pulse Ox 97.6 F 73 20 117/73 100 05/05/18 16:00 05/05/18 16:00 05/05/18 16:00 05/05/18 16:00 05/05/18 16:00 Intake and Output: 05/05/18 05/05/18 06:59 18:59 Intake Total 240 200 Balance 240 200 - Medications Medications: Current Medications Amlodipine Besylate (Norvasc) 10 mg PO DAILY [facility] Last Admin: 05/05/18 09:07 Dose: 10 mg Aspirin (Ecotrin) 81 mg PO DAILY [facility] Last Admin: 05/05/18 09:07 Dose: 81 mg Enoxaparin Sodium (Lovenox) 40 mg SC DAILY [facility] Last Admin: 05/05/18 09:07 Dose: 40 mg Guaifenesin (Mucinex La) 600 mg PO BID [facility] Last Admin: 05/05/18 09:07 Dose: 600 mg Isosorbide Mononitrate (Ismo) 20 mg PO DAILY [facility] Last Admin: 05/05/18 09:07 Dose: 20 mg Lactic Acid (Lac-Hydrin 12% Lotion (225 G)) 0 gm EXT Q12H [facility] Last Admin: 05/05/18 12:38 Dose: 1 applic Lactobacillus Acidophilus (Bacid Acidophilus) 1 cap PO BID [facility] Last Admin: 05/05/18 09:07 Dose: 1 cap Lisinopril (Zestril) 40 mg PO DAILY [facility] Last Admin: 05/05/18 09:07 Dose: 40 mg Rosuvastatin Calcium (Crestor) 5 mg PO HS [facility] Last Admin: 05/03/18 21:32 Dose: 5 mg Vitamin A (Vitamin A & D Oint Ud Foilpak) 1 ea TOP BID [facility] Last Admin: 05/05/18 09:08 Dose: 1 ea - Labs Labs: 05/04/18 11:21 05/04/18 07:11 PT 16.4 SECONDS (9.7-12.2) H 04/06/18 07:35 INR 1.5 04/06/18 07:35 APTT 28 SECONDS (21-34) 04/06/18 07:35 Attending/Attestation - Attestation I have personally seen and examined this patient.: Yes I have fully participated in the care of the patient.: Yes I have reviewed all pertinent clinical information, including history, physical exam and plan: Yes Notes (Text): seen and examined,no complain,lying comfortable I agree with the resident's documentation Pending Medicaid approval. CM helping to secure long-term placement.
[2018-05-05] MEDS: Enoxaparin 40 mg Syringe SC SCH (09:07)
[2018-05-05] MEDS: Lactobacillus Acidophilus 500 MU Cap PO SCH ×2 (09:07→17:26)
[2018-05-05] MEDS: guaiFENesin 600 mg ER Tab PO SCH ×2 (09:07→17:26)
[2018-05-05] MEDS: Vitamins A & D Oint UD Foilpak TOP SCH ×2 (09:08→17:26)
--- NOTE | 2018-05-06 00:18 | CP.PCM.PN ---
<Buzz Nash - Last Filed: 05/06/18 00:17> Subjective - Date & Time of Evaluation Date of Evaluation: 05/06/18 Time of Evaluation: 00:17 - Subjective Subjective: HOSPITALIST SERVICE Pt seen and examined at bedside. denies cp fc nv sob still limited cognition Objective - Vital Signs/Intake and Output Vital Signs (last 24 hours): Temp Pulse Resp BP Pulse Ox 97.6 F 73 20 117/73 100 05/05/18 16:00 05/05/18 16:00 05/05/18 16:00 05/05/18 16:00 05/05/18 16:00 Intake and Output: 05/05/18 05/06/18 18:59 06:59 Intake Total 200 300 Balance 200 300 - Medications Medications: Current Medications Amlodipine Besylate (Norvasc) 10 mg PO DAILY [facility] Last Admin: 05/05/18 09:07 Dose: 10 mg Aspirin (Ecotrin) 81 mg PO DAILY [facility] Last Admin: 05/05/18 09:07 Dose: 81 mg Enoxaparin Sodium (Lovenox) 40 mg SC DAILY [facility] Last Admin: 05/05/18 09:07 Dose: 40 mg Guaifenesin (Mucinex La) 600 mg PO BID [facility] Last Admin: 05/05/18 17:26 Dose: 600 mg Isosorbide Mononitrate (Ismo) 20 mg PO DAILY [facility] Last Admin: 05/05/18 09:07 Dose: 20 mg Lactic Acid (Lac-Hydrin 12% Lotion (225 G)) 0 gm EXT Q12H [facility] Last Admin: 05/05/18 12:38 Dose: 1 applic Lactobacillus Acidophilus (Bacid Acidophilus) 1 cap PO BID [facility] Last Admin: 05/05/18 17:26 Dose: 1 cap Lisinopril (Zestril) 40 mg PO DAILY [facility] Last Admin: 05/05/18 09:07 Dose: 40 mg Rosuvastatin Calcium (Crestor) 5 mg PO HS [facility] Last Admin: 05/03/18 21:32 Dose: 5 mg Vitamin A (Vitamin A & D Oint Ud Foilpak) 1 ea TOP BID [facility] Last Admin: 05/05/18 17:26 Dose: 1 ea - Labs Labs: 05/04/18 11:21 05/04/18 07:11 PT 16.4 SECONDS (9.7-12.2) H 04/06/18 07:35 INR 1.5 04/06/18 07:35 APTT 28 SECONDS (21-34) 04/06/18 07:35 - Additional Findings Additional findings: - Constitutional Appears: Non-toxic, No Acute Distress - Head Exam Head Exam: ATRAUMATIC, NORMAL INSPECTION, NORMOCEPHALIC - Eye Exam Eye Exam: Normal appearance - ENT Exam ENT Exam: Mucous Membranes Moist - Respiratory Exam Respiratory Exam: Clear to Ausculation Bilateral, NORMAL BREATHING PATTERN. absent: Rhonchi, Wheezes - Cardiovascular Exam Cardiovascular Exam: +S1, +S2. absent: Murmur - GI/Abdominal Exam GI & Abdominal Exam: Soft, Normal Bowel Sounds. absent: Firm, Guarding, Rigid - Extremities Exam Extremities Exam: Full ROM. absent: Calf Tenderness, Pedal Edema - Back Exam Back Exam: absent: CVA tenderness (L), CVA tenderness (R) - Neurological Exam Neurological Exam: Alert, Awake - Skin Skin Exam: Dry, Intact, Normal Color, Warm Additional comments: xerosis on b/l feet, abnormal pigmentation or abnormal growths noted, Rigid hammertoe contractures Assessment and Plan - Assessment and Plan (Free Text) Assessment: 58 year old male with PMHx of HTN, ETOH abuse, CHF, and CVA presented to the ED for foot pain and with altered mental status. Patient currently stable on medicine floor. No longer need daily labs, now weekly on Plan: JASWANT - initial admission, patient in JASWANT, resolved, now returned likely 2/2 dehydration - Nephrology consulted- Dr. Lizarraga- recs below - Avoid nephrotoxic agents (NSAIDS, phosphate enema) - will hold chlorthiladone 25 mg daily - Will hold fluids due to underly CHF, will encourage gentle PO hydration - Renal artery duplex - possible significant GLADIS - - Renal ultrasound (04/05): non-obstructive left nephrolithiasis. Otherwise normal ultrasound Left Foot Hammertoes and Heel Spurs - Pt ambulates with help of rolling walker. Tolerating PT. - No evidence of cellulitis, lower extremities show blanchable erythema - Podiatry, Dr. Gomez consulted- signed off; reconsult if necessary; no need for acute surgical intervention - Betadine soak leonidas interphalangel toe spaces w/ krillex wrap - Blood culture (04/04): No growth x 5 days - Lower extremities venous doppler: negative for DVT - Foot Xray (04/03): Degenerative changes of the forefoot. No acute fractures, s ubluxations. B/l hammertoe deformities are identified diffusely. Severe hallux valgus deformity noted. Large plantar calcaneal spurs b/l. - PT/ OT recommended for gait training Hypertension, uncontrolled - Patient not compliant with previous discharge meds. Given decreased mental capacity at baseline, it is unlikely he will be capable of taking his daily - medications without assistance. - Imdur 20mg PO daily - Lisinopril 10mg PO daily - Amlodipine 10mg PO daily - Hydralazine decreased from 75 mg PO TID to 50 mg BID. Continue to taper and monitor BP. - Chlorthalidone 25 mg PO daily added - Secondary HTN workup: - Renal artery duplex 04/05/2018: RIGHT: Findings suggestive of hemodynamically significant stenosis of the right renal artery, proximal segment. LEFT: No - definite hemodynamically significant stenosis involving the renal arteries as visualized. - Dr. Lizarraga has been following this patient and does not feel that this is significant GLADIS that would require intervention/stent. HTN to continue to be managed -medically. - Plasma metanephrines WNL - Aldosterone/Plasma renin activity: Aldosterone <1, Renin 12.25 - ASA 81 mg PO daily - Crestor 5 mg PO HS History of chronic alcohol abuse: - Monitor for signs of withdrawal - Serum alcohol level: < 10 - Upon review of prior records, patient is known to present with altered mental status 2/2 alcohol intoxication - UDS: Negative - Ativan taper finished on 04/09 - Continue Ativan 1mg IV Q6 PRN for withdrawal sx - Vitamin B12: 511m Folate levels: > 20 - Thiamine, folic acid, multivitamin - Ammonia level rechecked 04/11 - < 9 - CT head (04/04): Chronic microvascular ischemic changes. 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 B/l basal ganglia and R thalamic lacunar infarcts. Focal encephalomalacia in the R duneas radiata. Pleural Effusion / Possible Pulmonary Infiltrates - Pulmonology, Dr. Lebron consulted - Abx Course finished - (Doxycycline 100 mg IV Q12H, Ceftriaxone 1mg IV Q24H) - Atrovent INH Q6 PRN - Legionella, s. pneumonia, influenza: Negative - Mycoplasma Ig.19 (normal: < 0.9), Mycoplasma IgM: negative - CXR (04/04): Limited patchy atelectasis medial right base with remaining lung liu clear. Stable prominent cardiac silhouette. - CT chest (04/04): Small to medium size right-sided effusion and mild right basilar atelectasis. Small opacities are also present within the middle lobe possibly -representing rounded atelectasis and/or infiltrates. There also appears to be some mild dependent atelectasis in the left lung base. Trace right-sided effusion. - Minimal linear scarring changes left lingular region. Suspect mild underlying pulmonary venous congestive changes. There also appears to be a few scattered parenchymal calcifications likely representing granulomata within both lower lung liu as well. Cardiomegaly. - CXR PA/Lateral 04/09 - Mild bibasilar atelectasis and/or infiltrate changes seen in the right mid to lower lung field with suspected mild left basilar atelectasis HX of CHF with preserved EF - Cardiology, Dr. Dobbs consulted - Continue current regimen for BP control - 1500 mL/day fluid restricted diet - ProBNP: 29,300- increased from previous admissions - Previous Echo (08/2017): LV normal size, borderline LV hypertrophy, Systolic function borderline, mild septal hypokinesis, LVEF >50% - No additional echo indicated on this admission as patient is not showing symp toms of heart failure COPD exacerbation-resolved - Pulmonology, Dr. Lebron consulted - Duoneb Q6 PRN - Atrovent INH Q6 PRN - Patient is stable, O2 % saturation: 95-100% on room air Scabies - Resolved - Off contact precautions - Benadryl cream BID prn for pruritis - Vitamin A and D TOP BID Prophylaxis/diet: - DVT: Lovenox 40units qd, SCDs - GI: Protonix 40mg IVP daily - discontinued, no longer needed Dispo: Pending Medicaid approval. CM helping to secure group home placement. <Dominique Richey V - Last Filed: 05/06/18 14:52> Objective - Vital Signs/Intake and Output Vital Signs (last 24 hours): Temp Pulse Resp BP Pulse Ox 97.6 F 65 20 96/63 L 95 12/02/18 08:19 05/06/18 08:19 05/06/18 08:19 05/06/18 08:19 05/06/18 08:19 Intake and Output: 05/06/18 05/06/18 06:59 18:59 Intake Total 300 320 Balance 300 320 - Medications Medications: Current Medications Amlodipine Besylate (Norvasc) 10 mg PO DAILY [facility] Last Admin: 05/06/18 10:24 Dose: 10 mg Aspirin (Ecotrin) 81 mg PO DAILY [facility] Last Admin: 05/06/18 09:38 Dose: 81 mg Enoxaparin Sodium (Lovenox) 40 mg SC DAILY [facility] Last Admin: 05/06/18 09:38 Dose: 40 mg Guaifenesin (Mucinex La) 600 mg PO BID [facility] Last Admin: 05/06/18 09:38 Dose: 600 mg Isosorbide Mononitrate (Ismo) 20 mg PO DAILY [facility] Last Admin: 05/06/18 09:38 Dose: 20 mg Lactic Acid (Lac-Hydrin 12% Lotion (225 G)) 0 gm EXT Q12H [facility] Last Admin: 05/06/18 11:52 Dose: 1 applic Lactobacillus Acidophilus (Bacid Acidophilus) 1 cap PO BID [facility] Last Admin: 05/06/18 09:38 Dose: 1 cap Lisinopril (Zestril) 40 mg PO DAILY [facility] Last Admin: 05/06/18 09:38 Dose: 40 mg Rosuvastatin Calcium (Crestor) 5 mg PO HS [facility] Last Admin: 05/03/18 21:32 Dose: 5 mg Vitamin A (Vitamin A & D Oint Ud Foilpak) 1 ea TOP BID [facility] Last Admin: 05/06/18 09:38 Dose: 1 ea - Labs Labs: 05/04/18 11:21 05/04/18 07:11 PT 16.4 SECONDS (9.7-12.2) H 04/06/18 07:35 INR 1.5 04/06/18 07:35 APTT 28 SECONDS (21-34) 04/06/18 07:35 Attending/Attestation - Attestation I have personally seen and examined this patient.: Yes I have fully participated in the care of the patient.: Yes I have reviewed all pertinent clinical information, including history, physical exam and plan: Yes Notes (Text): patient seen, examined, and case discussed with day-time resident. patient transferred to a different room. Patient denies complaints. Patient is awaiting placement. Assessment/Plan 1) Deconditioning Assessment/Plan * PT walked with patient 04/23 -atient needs continued PT to regain independent ambulation without assistance/RW. * Per case management, patient will not be accepted to a homeless nursing home without ability to ambulate independently without a walker * Social work attempting to secure group home placement * CT head (04/04): Chronic microvascular ischemic changes. 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 B/l basal ganglia and R thalamic lacunar infarcts. Focal encephalomalacia in the R duenas radiata. * C/w physical therapy given recommendation for [facility]. Patient does not have insurance to make him eligible for [facility]. * Continues to need rolling walker regarding gait; therefore not eligible for nursing home 2) History of chronic alcohol abuse Assessment/Plan * Patient has completed ativan taper. * Patient is not in the window for withdrawal * Serum alcohol level: < 10 * Upon review of prior records, patient is known to present with altered mental status 2/2 alcohol intoxication * UDS: Negative * Vitamin B12: 511m Folate levels: > 20 * c/w Thiamine, folic acid, multivitamin * Ammonia is low 3) Hypertension Assessment/Plan * Patient has not prior history of noncompliance. * Imdur 20mg PO daily * Lisinopril 10mg PO QDaily * Amlodipine 10mg PO QDaily * d/c Chlorthalidone 25mg PO daily * d/c Hydralazine decreased 25mg PO Q8H 04/21/18 * Secondary HTN workup: * Renal artery duplex 04/05/2018: RIGHT: Findings suggestive of h emodynamically significant stenosis of the right renal artery, proximal segment. LEFT: No definite hemodynamically significant stenosis involving the renal arteries as visualized. * Plasma metanephrines: f/u * Aldosterone/Plasma renin activity: f/u 4) Lower extremity swelling Resolved) * No evidence of cellulitis, lower extremities show blanchable erythema * Completed IV abx to cover for cellulitis and pneumonia * Patient's case consulted with podiatry during hospitalization. * Foot Xray (04/03): Degenerative changes of the forefoot. No acute fractures, subluxations. B/l hammertoe deformities are identified diffusely. Severe hallux valgus deformity noted. Large plantar calcaneal spurs b/l. * Podiatry has signed 5) Atelectasis; possible pneumonia (resolved) * Patient has completed IV abx to cover for pnuemonia * Legionella, s. pneumonia, influenza: Negative, Mycoplasma Ig.19 (normal: < 0.9), Mycoplasma IgM: negative * CXR (04/04): Limited patchy atelectasis medial right base with remaining lung liu clear. Stable prominent cardiac silhouette. * CT chest (04/04): Small to medium size right-sided effusion and mild right basilar atelectasis. Small opacities are also present within the middle lobe possibly representing rounded atelectasis and/or infiltrates. There also appears to be some mild dependent atelectasis in the left lung base. Trace right-sided effusion. Minimal linear scarring changes left lingular region. Suspect mild underlying pulmonary venous congestive changes. There also appears to be a few scattered parenchymal calcifications likely representing granulomata within both lower lung liu as well. Cardiomegaly. * CXR PA/Lateral 04/09 - Mild bibasilar atelectasis and/or infiltrate changes seen in the right mid to lower lung field with suspected mild left basilar atelectais * Mucinex 600mg PO BID 6) Scabies (resolved) * Completed 2 doses of Permethrin during hospitalization * Contact precaution d/c' * Benadryl cream BID prn for itchiness; patient advised to stop scratching. Patient has poor nail hygiene * Vitamin A and D TOP BID for dry skin 7) HX of CHF with reserved EF (stable) * Cardiology, Dr. Dobbs consulted * Continue current regimen for BP control - hydralazine 100 PO q8, norvasc 10 PO daily, lisinopril 40 PO daily, norvasc 10mg PO daily * No additional echo indicated on this admission as patient is not showing symptoms of heart failure * ProBNP: 29,300- increased from previous admissions * Previous Echo (08/2017): LV normal size, borderline LV hypertrophy, Systolic function borderline, mild septal hypokinesis, LVEF >50% * No beta jessica given side effect of bronchospasm * Crestor 5mg PO daily held given elevated LFTs * Aspirin 81mg Po daily 8) COPD exacerbation (stable) * Pulmonology, Dr. Lebron consulted * Atrovent INH Q6 PRN * Patient is stable, O2 % saturation: 95-100% on room air 9) JASWANT, (resolved) * Nephrology, Dr. Lizarraga consulted * Avoid nephrotoxic agents (NSAIDS, phosphate enema) * Renal artery duplex - possible significant GLADIS - see above * Renal ultrasound (04/05): non-obstructive left nephrolithiasis. Otherwise normal ultrasound 10) Prophylaxis/diet: * DVT PPX: lovenox 40mg subqdaily * GI: Protonix 40mg IVP daily * HHD * Social work note (05/03/18): Medicare#[id number]; has been to [facility] for [facility] about one year ago. He has sister and son-law. * Awaiting placement Disposition: patient is medically optimized. patient will need physical therapy given gait imbalance and deconditioning; he is able to walk only with rolling walker however he is without insurance and cannot go to nursing home given his need for device. Placement for group home placement. continue to follow-up with social workup.
[2018-05-06] MEDS: Ammonium Lactate 12% Lotion (225 g) EXT SCH ×2 (00:21→11:52)
[2018-05-06] MEDS: Enoxaparin 40 mg Syringe SC SCH (09:38)
[2018-05-06] MEDS: Lactobacillus Acidophilus 500 MU Cap PO SCH ×2 (09:38→17:33)
[2018-05-06] MEDS: Vitamins A & D Oint UD Foilpak TOP SCH ×2 (09:38→17:33)
[2018-05-06] MEDS: guaiFENesin 600 mg ER Tab PO SCH ×2 (09:38→17:33)
[2018-05-07] MEDS: Ammonium Lactate 12% Lotion (225 g) EXT SCH ×2 (00:58→12:26)
[2018-05-07 07:25] LABS: HEMOGLOBIN 12.2 g/dL (12.0-18.0); MEAN CELL VOLUME 88.5 fL (80.0-94.0); MEAN CORPUSCULAR HGB CONC 32.8 g/dL (33.0-37.0); MEAN PLATELET VOLUME 9.1 fL (7.2-11.7); RBC 4.19 Mil/uL (4.40-5.90)
[2018-05-07 08:09] LABS: ALB/GLOB RATIO 0.9 (1.0-2.1); ALBUMIN 3.7 g/dL (3.5-5.0); ALT/SGPT 184 U/L (21-72); AST/SGOT 151 U/L (17-59); BLOOD UREA NITROGEN 67 mg/dL (9-20); CALCIUM 9.5 mg/dl (8.6-10.4); GFR NON-AFRICAN AMERICAN 56
--- NOTE | 2018-05-07 08:21 | CP.PCM.PN ---
<Dominique Richey V - Last Filed: 05/07/18 18:17> Objective - Vital Signs/Intake and Output Vital Signs (last 24 hours): Temp Pulse Resp BP Pulse Ox 97.6 F 76 20 119/78 99 05/07/18 16:00 05/07/18 16:00 05/07/18 16:00 05/07/18 16:00 05/07/18 16:00 Intake and Output: 05/07/18 05/07/18 06:59 18:59 Intake Total 1000 500 Output Total 1150 Balance -150 500 - Medications Medications: Current Medications Amlodipine Besylate (Norvasc) 10 mg PO DAILY [facility] Last Admin: 05/07/18 10:54 Dose: 10 mg Aspirin (Ecotrin) 81 mg PO DAILY [facility] Last Admin: 05/07/18 10:54 Dose: 81 mg Enoxaparin Sodium (Lovenox) 40 mg SC DAILY [facility] Last Admin: 05/07/18 10:53 Dose: 40 mg Guaifenesin (Mucinex La) 600 mg PO BID [facility] Last Admin: 05/07/18 18:10 Dose: 600 mg Isosorbide Mononitrate (Ismo) 20 mg PO DAILY [facility] Last Admin: 05/07/18 10:53 Dose: 20 mg Lactic Acid (Lac-Hydrin 12% Lotion (225 G)) 0 gm EXT Q12H [facility] Last Admin: 05/07/18 12:26 Dose: 1 applic Lactobacillus Acidophilus (Bacid Acidophilus) 1 cap PO BID [facility] Last Admin: 05/07/18 18:10 Dose: 1 cap Lisinopril (Zestril) 40 mg PO DAILY [facility] Last Admin: 05/07/18 10:54 Dose: 40 mg Rosuvastatin Calcium (Crestor) 5 mg PO HS [facility] Last Admin: 05/03/18 21:32 Dose: 5 mg Vitamin A (Vitamin A & D Oint Ud Foilpak) 1 ea TOP BID [facility] Last Admin: 05/07/18 18:10 Dose: 1 ea - Labs Labs: 05/07/18 07:11 05/07/18 07:11 PT 16.4 SECONDS (9.7-12.2) H 04/06/18 07:35 INR 1.5 04/06/18 07:35 APTT 28 SECONDS (21-34) 04/06/18 07:35 Attending/Attestation - Attestation I have personally seen and examined this patient.: Yes I have fully participated in the care of the patient.: Yes I have reviewed all pertinent clinical information, including history, physical exam and plan: Yes Notes (Text): patient seen, examined, and case discussed with day-time resident. Patient denies complaints. Encourage PO intake of water given elevated BUN. Patient is awaiting placement. Assessment/Plan 1) Deconditioning Assessment/Plan * PT walked with patient 04/23 -atient needs continued PT to regain independent ambulation without assistance/RW. * Per case management, patient will not be accepted to a homeless correction without ability to ambulate independently without a walker * Social work attempting to secure shelter placement * CT head (04/04): Chronic microvascular ischemic changes. 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 B/l basal ganglia and R thalamic lacunar infarcts. Focal encephalomalacia in the R duenas radiata. * C/w physical therapy given recommendation for [facility]. Patient does not have insurance to make him eligible for [facility]. * Continues to need rolling walker regarding gait; therefore not eligible for correction 2) History of chronic alcohol abuse Assessment/Plan * Patient has completed ativan taper. * Patient is not in the window for withdrawal * Serum alcohol level: < 10 * Upon review of prior records, patient is known to present with altered mental status 2/2 alcohol intoxication * UDS: Negative * Vitamin B12: 511m Folate levels: > 20 * c/w Thiamine, folic acid, multivitamin * Ammonia is low 3) Hypertension Assessment/Plan * Patient has not prior history of noncompliance. * Imdur 20mg PO daily * Lisinopril 10mg PO QDaily * Amlodipine 10mg PO QDaily * d/c Chlorthalidone 25mg PO daily * d/c Hydralazine decreased 25mg PO Q8H 04/21/18 * Secondary HTN workup: * Renal artery duplex 04/05/2018: RIGHT: Findings suggestive of hemodynamically significant stenosis of the right renal artery, proximal segment. LEFT: No definite hemodynamically significant stenosis involving the renal arteries as visualized. * Plasma metanephrines: f/u * Aldosterone/Plasma renin activity: f/u 4) Lower extremity swelling Resolved) * No evidence of cellulitis, lower extremities show blanchable erythema * Completed IV abx to cover for cellulitis and pneumonia * Patient's case consulted with podiatry during hospitalization. * Foot Xray (04/03): Degenerative changes of the forefoot. No acute fractures, subluxations. B/l hammertoe deformities are identified diffusely. Severe hallux valgus deformity noted. Large plantar calcaneal spurs b/l. * Podiatry has signed 5) Atelectasis; possible pneumonia (resolved) * Patient has completed IV abx to cover for pnuemonia * Legionella, s. pneumonia, influenza: Negative, Mycoplasma Ig.19 (normal: < 0.9), Mycoplasma IgM: negative * CXR (04/04): Limited patchy atelectasis medial right base with remaining lung liu clear. Stable prominent cardiac silhouette. * CT chest (04/04): Small to medium size right-sided effusion and mild right basilar atelectasis. Small opacities are also present within the middle lobe possibly representing rounded atelectasis and/or infiltrates. There also appears to be some mild dependent atelectasis in the left lung base. Trace r ight-sided effusion. Minimal linear scarring changes left lingular region. Suspect mild underlying pulmonary venous congestive changes. There also appears to be a few scattered parenchymal calcifications likely representing granulomata within both lower lung liu as well. Cardiomegaly. * CXR PA/Lateral 04/09 - Mild bibasilar atelectasis and/or infiltrate changes seen in the right mid to lower lung field with suspected mild left basilar atelectais * Mucinex 600mg PO BID 6) Scabies (resolved) * Completed 2 doses of Permethrin during hospitalization * Contact precaution d/c' * Benadryl cream BID prn for itchiness; patient advised to stop scratching. Patient has poor nail hygiene * Vitamin A and D TOP BID for dry skin 7) HX of CHF with reserved EF (stable) * Cardiology, Dr. Dobbs consulted * Continue current regimen for BP control - hydralazine 100 PO q8, norvasc 10 PO daily, lisinopril 40 PO daily, norvasc 10mg PO daily * No additional echo indicated on this admission as patient is not showing symptoms of heart failure * ProBNP: 29,300- increased from previous admissions * Previous Echo (08/2017): LV normal size, borderline LV hypertrophy, Systolic function borderline, mild septal hypokinesis, LVEF >50% * No beta jessica given side effect of bronchospasm * Crestor 5mg PO daily held given elevated LFTs * Aspirin 81mg Po daily 8) COPD exacerbation (stable) * Pulmonology, Dr. Lebron consulted * Atrovent INH Q6 PRN * Patient is stable, O2 % saturation: 95-100% on room air 9) JASWANT, (resolved) * Nephrology, Dr. Lizarraga consulted * Avoid nephrotoxic agents (NSAIDS, phosphate enema) * Renal artery duplex - possible significant GLADIS - see above * Renal ultrasound (04/05): non-obstructive left nephrolithiasis. Otherwise normal ultrasound 10) Prophylaxis/diet: * DVT PPX: lovenox 40mg subqdaily * GI: Protonix 40mg IVP daily * HHD * Social work note (05/03/18): Medicare#[id number]; has been to [facility] for [facility] about one year ago. He has sister and son-law. * Awaiting placement Disposition: patient is medically optimized. patient will need physical therapy given gait imbalance and deconditioning; he is able to walk only with rolling walker however he is without insurance and cannot go to correction given his need for device. Placement for shelter placement. continue to follow-up with social workup. <Buzz Nash - Last Filed: 05/08/18 11:01> Subjective - Date & Time of Evaluation Date of Evaluation: 05/07/18 Time of Evaluation: 08:20 - Subjective Subjective: HOSPITALIST SERVICE Pt seen and examined at [facility], denies cp sob fc nv, denies any acute events overnight, pt is still limited in cognitive acuity. as per nursing, no acute issues overnight. Objective - Vital Signs/Intake and Output Vital Signs (last 24 hours): Temp Pulse Resp BP Pulse Ox 98.6 F 65 20 116/71 98 05/07/18 00:00 05/07/18 00:00 05/07/18 00:00 05/07/18 00:00 05/07/18 00:00 Intake and Output: 05/07/18 05/07/18 06:59 18:59 Intake Total 1000 Output Total 1150 Balance -150 - Medications Medications: Current Medications Amlodipine Besylate (Norvasc) 10 mg PO DAILY [facility] Last Admin: 05/06/18 10:24 Dose: 10 mg Aspirin (Ecotrin) 81 mg PO DAILY [facility] Last Admin: 05/06/18 09:38 Dose: 81 mg Enoxaparin Sodium (Lovenox) 40 mg SC DAILY [facility] Last Admin: 05/06/18 09:38 Dose: 40 mg Guaifenesin (Mucinex La) 600 mg PO BID [facility] Last Admin: 05/06/18 17:33 Dose: 600 mg Isosorbide Mononitrate (Ismo) 20 mg PO DAILY [facility] Last Admin: 05/06/18 09:38 Dose: 20 mg Lactic Acid (Lac-Hydrin 12% Lotion (225 G)) 0 gm EXT Q12H [facility] Last Admin: 05/07/18 00:58 Dose: 1 applic Lactobacillus Acidophilus (Bacid Acidophilus) 1 cap PO BID [facility] Last Admin: 05/06/18 17:33 Dose: 1 cap Lisinopril (Zestril) 40 mg PO DAILY [facility] Last Admin: 05/06/18 09:38 Dose: 40 mg Rosuvastatin Calcium (Crestor) 5 mg PO HS [facility] Last Admin: 05/03/18 21:32 Dose: 5 mg Vitamin A (Vitamin A & D Oint Ud Foilpak) 1 ea TOP BID [facility] Last Admin: 05/06/18 17:33 Dose: 1 ea - Labs Labs: 05/07/18 07:11 05/07/18 07:11 PT 16.4 SECONDS (9.7-12.2) H 04/06/18 07:35 INR 1.5 04/06/18 07:35 APTT 28 SECONDS (21-34) 04/06/18 07:35 - Additional Findings Additional findings: - Constitutional Appears: Non-toxic, No Acute Distress - Head Exam Head Exam: ATRAUMATIC, NORMAL INSPECTION, NORMOCEPHALIC - Eye Exam Eye Exam: Normal appearance - ENT Exam ENT Exam: Mucous Membranes Moist - Respiratory Exam Respiratory Exam: Clear to Ausculation Bilateral, NORMAL BREATHING PATTERN. ab sent: Rhonchi, Wheezes - Cardiovascular Exam Cardiovascular Exam: +S1, +S2. absent: Murmur - GI/Abdominal Exam GI & Abdominal Exam: Soft, Normal Bowel Sounds. absent: Firm, Guarding, Rigid - Extremities Exam Extremities Exam: Full ROM. absent: Calf Tenderness, Pedal Edema - Back Exam Back Exam: absent: CVA tenderness (L), CVA tenderness (R) - Neurological Exam Neurological Exam: Alert, Awake - Skin Skin Exam: Dry, Intact, Normal Color, Warm Additional comments: xerosis on b/l feet, abnormal pigmentation or abnormal growths noted, Rigid hammertoe contractures Assessment and Plan - Assessment and Plan (Free Text) Assessment: 58 year old male with PMHx of HTN, ETOH abuse, CHF, and CVA presented to the ED for foot pain and with altered mental status. Patient currently stable on medicine floor. No longer need daily labs, now weekly on Plan: JASWANT - initial admission, patient in JASWANT, resolved, now returned likely 2/2 dehydration - Nephrology consulted- Dr. Lizarraga- recs below - Avoid nephrotoxic agents (NSAIDS, phosphate enema) - will hold chlorthiladone 25 mg daily - Will hold fluids due to underly CHF, will encourage gentle PO hydration - Renal artery duplex - possible significant GLADIS - - Renal ultrasound (04/05): non-obstructive left nephrolithiasis. Otherwise normal ultrasound Left Foot Hammertoes and Heel Spurs - Pt ambulates with help of rolling walker. Tolerating PT. - No evidence of cellulitis, lower extremities show blanchable erythema - Podiatry, Dr. Gomez consulted- signed off; reconsult if necessary; no need for acute surgical intervention - Betadine soak leonidas interphalangel toe spaces w/ krillex wrap - Blood culture (04/04): No growth x 5 days - Lower extremities venous doppler: negative for DVT - Foot Xray (04/03): Degenerative changes of the forefoot. No acute fractures, subluxations. B/l hammertoe deformities are identified diffusely. Severe hallux valgus deformity noted. Large plantar calcaneal spurs b/l. - PT/ OT recommended for gait training Hypertension, uncontrolled - Patient not compliant with previous discharge meds. Given decreased mental capacity at baseline, it is unlikely he will be capable of taking his daily - medications without assistance. - Imdur 20mg PO daily - Lisinopril 10mg PO daily - Amlodipine 10mg PO daily - Hydralazine decreased from 75 mg PO TID to 50 mg BID. Continue to taper and monitor BP. - Chlorthalidone 25 mg PO daily added - Secondary HTN workup: - Renal artery duplex 04/05/2018: RIGHT: Findings suggestive of hemodynamically significant stenosis of the right renal artery, proximal segment. LEFT: No - definite hemodynamically significant stenosis involving the renal arteries as visualized. - Dr. Lizarraga has been following this patient and does not feel that this is significant GLADIS that would require intervention/stent. HTN to continue to be managed -medically. - Plasma metanephrines WNL - Aldosterone/Plasma renin activity: Aldosterone <1, Renin 12.25 - ASA 81 mg PO daily - Crestor 5 mg PO HS History of chronic alcohol abuse: - Monitor for signs of withdrawal - Serum alcohol level: < 10 - Upon review of prior records, patient is known to present with altered mental status 2/2 alcohol intoxication - UDS: Negative - Ativan taper finished on 04/09 - Continue Ativan 1mg IV Q6 PRN for withdrawal sx - Vitamin B12: 511m Folate levels: > 20 - Thiamine, folic acid, multivitamin - Ammonia level rechecked 04/11 - < 9 - CT head (04/04): Chronic microvascular ischemic changes. 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 B/l basal ganglia and R thalamic lacunar infarcts. Focal encephalomalacia in the R duenas radiata. Pleural Effusion / Possible Pulmonary Infiltrates - Pulmonology, Dr. Lebron consulted - Abx Course finished - (Doxycycline 100 mg IV Q12H, Ceftriaxone 1mg IV Q24H) - Atrovent INH Q6 PRN - Legionella, s. pneumonia, influenza: Negative - Mycoplasma Ig.19 (normal: < 0.9), Mycoplasma IgM: negative - CXR (04/04): Limited patchy atelectasis medial right base with remaining lung liu clear. Stable prominent cardiac silhouette. - CT chest (04/04): Small to medium size right-sided effusion and mild right basilar atelectasis. Small opacities are also present within the middle lobe possibly -representing rounded atelectasis and/or infiltrates. There also appears to be some mild dependent atelectasis in the left lung base. Trace right-sided effusion. - Minimal linear scarring changes left lingular region. Suspect mild underlying pulmonary venous congestive changes. There also appears to be a few scattered parenchymal calcifications likely representing granulomata within both lower lung liu as well. Cardiomegaly. - CXR PA/Lateral 04/09 - Mild bibasilar atelectasis and/or infiltrate changes seen in the right mid to lower lung field with suspected mild left basilar atelectasis HX of CHF with preserved EF - Cardiology, Dr. Dobbs consulted - Continue current regimen for BP control - 1500 mL/day fluid restricted diet - ProBNP: 29,300- increased from previous admissions - Previous Echo (08/2017): LV normal size, borderline LV hypertrophy, Systolic f unction borderline, mild septal hypokinesis, LVEF >50% - No additional echo indicated on this admission as patient is not showing symptoms of heart failure COPD exacerbation-resolved - Pulmonology, Dr. Lebron consulted - Duoneb Q6 PRN - Atrovent INH Q6 PRN - Patient is stable, O2 % saturation: 95-100% on room air Scabies - Resolved - Off contact precautions - Benadryl cream BID prn for pruritis - Vitamin A and D TOP BID Prophylaxis/diet: - DVT: Lovenox 40units qd, SCDs - GI: Protonix 40mg IVP daily - discontinued, no longer needed Dispo: Pending Medicaid approval. CM helping to secure shelter placement. f/u AM CMP, trend LFTs, f/u Abd US
[2018-05-07] MEDS: Vitamins A & D Oint UD Foilpak TOP SCH ×2 (10:53→18:10)
[2018-05-07] MEDS: Enoxaparin 40 mg Syringe SC SCH (10:53)
[2018-05-07] MEDS: Lactobacillus Acidophilus 500 MU Cap PO SCH ×2 (10:53→18:10)
[2018-05-07] MEDS: guaiFENesin 600 mg ER Tab PO SCH ×2 (10:54→18:10)
[2018-05-08] MEDS: Ammonium Lactate 12% Lotion (225 g) EXT SCH ×2 (00:40→13:00)
[2018-05-08] MEDS: Lactobacillus Acidophilus 500 MU Cap PO SCH ×2 (10:15→18:12)
[2018-05-08] MEDS: Enoxaparin 40 mg Syringe SC SCH (10:16)
[2018-05-08] MEDS: Vitamins A & D Oint UD Foilpak TOP SCH ×2 (10:17→18:12)
--- NOTE | 2018-05-08 18:30 | US ---
Date of service: 05/08/2018 HISTORY: acute LFTs COMPARISON: None. TECHNIQUE: Sonographic evaluation of the abdomen. FINDINGS: LIVER: Measures 16.9 cm. Hepatopedal blood flow. Fatty infiltration manifest ultrasonographically as increased echogenicity of the liver parenchyma. No mass. No intrahepatic bile duct dilatation. GALLBLADDER: Cholelithiasis. Negative study for gallbladder wall thickening, pericholecystic fluid, sonographic Cat's sign. COMMON BILE DUCT: Measures 4.5 mm. No stones. No dilatation. PANCREAS: Unremarkable as visualized. No mass. No ductal dilatation. RIGHT KIDNEY: Measures 3.8 x 9.0cm. Normal echogenicity. No calculus, mass, or hydronephrosis. LEFT KIDNEY: Measures 5.0 x 11.7cm. Normal echogenicity. No calculus, mass, or hydronephrosis. SPLEEN: Normal in size and contour. No mass. AORTA: No aneurysmal dilatation. IVC: Unremarkable. OTHER FINDINGS: Incompletely visualized right pleural effusion. IMPRESSION: Cholelithiasis. No sonographic evidence of acute cholecystitis. Hepatic steatosis without focal abnormality.
[2018-05-09] MEDS: Ammonium Lactate 12% Lotion (225 g) EXT SCH (05:23)
--- NOTE | 2018-05-09 07:08 | CP.PCM.PN ---
<Buzz Nash - Last Filed: 05/09/18 17:04> Subjective - Date & Time of Evaluation Date of Evaluation: 05/09/18 Time of Evaluation: 07:08 - Subjective Subjective: HOSPITALIST SERVICE Pt seen and examined at bedside, denies cp sob fc nv, limited memory and cognition Objective - Vital Signs/Intake and Output Vital Signs (last 24 hours): Temp Pulse Resp BP Pulse Ox 98.1 F 74 20 111/77 95 05/09/18 00:00 05/09/18 00:00 05/09/18 00:00 05/09/18 00:00 05/09/18 00:00 Intake and Output: 05/09/18 05/09/18 06:59 18:59 Intake Total 250 Balance 250 - Medications Medications: Current Medications Amlodipine Besylate (Norvasc) 10 mg PO DAILY [facility] Last Admin: 05/08/18 10:15 Dose: 10 mg Aspirin (Ecotrin) 81 mg PO DAILY [facility] Last Admin: 05/08/18 10:16 Dose: 81 mg Enoxaparin Sodium (Lovenox) 40 mg SC DAILY [facility] Last Admin: 05/08/18 10:16 Dose: 40 mg Isosorbide Mononitrate (Ismo) 20 mg PO DAILY [facility] Last Admin: 05/08/18 10:15 Dose: 20 mg Lactic Acid (Lac-Hydrin 12% Lotion (225 G)) 0 gm EXT Q12H [facility] Last Admin: 05/09/18 05:23 Dose: Not Given Lactobacillus Acidophilus (Bacid Acidophilus) 1 cap PO BID [facility] Last Admin: 05/08/18 18:12 Dose: 1 cap Lisinopril (Zestril) 40 mg PO DAILY [facility] Last Admin: 05/08/18 10:14 Dose: 40 mg Rosuvastatin Calcium (Crestor) 5 mg PO HS [facility] Last Admin: 05/03/18 21:32 Dose: 5 mg Vitamin A (Vitamin A & D Oint Ud Foilpak) 1 ea TOP BID [facility] Last Admin: 05/08/18 18:12 Dose: 1 ea - Labs Labs: 05/07/18 07:11 05/07/18 07:11 PT 16.4 SECONDS (9.7-12.2) H 04/06/18 07:35 INR 1.5 04/06/18 07:35 APTT 28 SECONDS (21-34) 04/06/18 07:35 - Additional Findings Additional findings: - Constitutional Appears: Non-toxic, No Acute Distress - Head Exam Head Exam: ATRAUMATIC, NORMAL INSPECTION, NORMOCEPHALIC - Eye Exam Eye Exam: Normal appearance - ENT Exam ENT Exam: Mucous Membranes Moist - Respiratory Exam Respiratory Exam: Clear to Ausculation Bilateral, NORMAL BREATHING PATTERN. absent: Rhonchi, Wheezes - Cardiovascular Exam Cardiovascular Exam: +S1, +S2. absent: Murmur - GI/Abdominal Exam GI & Abdominal Exam: Soft, Normal Bowel Sounds. absent: Firm, Guarding, Rigid - Extremities Exam Extremities Exam: Full ROM. absent: Calf Tenderness, Pedal Edema - Back Exam Back Exam: absent: CVA tenderness (L), CVA tenderness (R) - Neurological Exam Neurological Exam: Alert, Awake - Skin Skin Exam: Dry, Intact, Normal Color, Warm Additional comments: xerosis on b/l feet, abnormal pigmentation or abnormal growths noted, Rigid hammertoe contractures Assessment and Plan - Assessment and Plan (Free Text) Assessment: 58 year old male with PMHx of HTN, ETOH abuse, CHF, and CVA presented to the ED for foot pain and with altered mental status. Patient currently stable on medicine floor. No longer need daily labs, now weekly on Plan: [facility] - initial admission, patient in [facility], resolved, now returned likely 2/2 dehydration - Nephrology consulted- Dr. Lizarraga- recs below - Avoid nephrotoxic agents (NSAIDS, phosphate enema) - will hold chlorthiladone 25 mg daily - Will hold fluids due to underly CHF, will encourage gentle PO hydration - Renal artery duplex - possible significant GLADIS - - Renal ultrasound (04/05): non-obstructive left nephrolithiasis. Otherwise normal ultrasound Left Foot Hammertoes and Heel Spurs - Pt ambulates with help of rolling walker. Tolerating PT. - No evidence of cellulitis, lower extremities show blanchable erythema - Podiatry, Dr. Gomez consulted- signed off; reconsult if necessary; no need for acute surgical intervention - Betadine soak leonidas interphalangel toe spaces w/ krillex wrap - Blood culture (04/04): No growth x 5 days - Lower extremities venous doppler: negative for DVT - Foot Xray (04/03): Degenerative changes of the forefoot. No acute fractures, subluxations. B/l hammertoe deformities are identified diffusely. Severe hallux valgus deformity noted. Large plantar calcaneal spurs b/l. - PT/ OT recommended for gait training Hepatitis C - hep c ab pos - f/u confirmatory serology Hypertension, uncontrolled - Patient not compliant with previous discharge meds. Given decreased mental capacity at baseline, it is unlikely he will be capable of taking his daily - medications without assistance. - Imdur 20mg PO daily - Lisinopril 10mg PO daily - Amlodipine 10mg PO daily - Hydralazine decreased from 75 mg PO TID to 50 mg BID. Continue to taper and monitor BP. - Chlorthalidone 25 mg PO daily added - Secondary HTN workup: - Renal artery duplex 04/05/2018: RIGHT: Findings suggestive of hemodynamically significant stenosis of the right renal artery, proximal segment. LEFT: No -d efinite hemodynamically significant stenosis involving the renal arteries as visualized. - Dr. Lizarraga has been following this patient and does not feel that this is significant GLADIS that would require intervention/stent. HTN to continue to be managed -medically. - Plasma metanephrines WNL - Aldosterone/Plasma renin activity: Aldosterone <1, Renin 12.25 - ASA 81 mg PO daily - Crestor 5 mg PO HS History of chronic alcohol abuse: - Monitor for signs of withdrawal - Serum alcohol level: < 10 - Upon review of prior records, patient is known to present with altered mental status 2/2 alcohol intoxication - UDS: Negative - Ativan taper finished on 04/09 - Continue Ativan 1mg IV Q6 PRN for withdrawal sx - Vitamin B12: 511m Folate levels: > 20 - Thiamine, folic acid, multivitamin - Ammonia level rechecked 04/11 - < 9 - CT head (04/04): Chronic microvascular ischemic changes. 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 B/l basal ganglia and R thalamic lacunar infarcts. Focal encephalomalacia in the R duenas radiata. Pleural Effusion / Possible Pulmonary Infiltrates - Pulmonology, Dr. Lebron consulted - Abx Course finished - (Doxycycline 100 mg IV Q12H, Ceftriaxone 1mg IV Q24H) - Atrovent INH Q6 PRN - Legionella, s. pneumonia, influenza: Negative - Mycoplasma Ig.19 (normal: < 0.9), Mycoplasma IgM: negative - CXR (04/04): Limited patchy atelectasis medial right base with remaining lung liu clear. Stable prominent cardiac silhouette. - CT chest (04/04): Small to medium size right-sided effusion and mild right basilar atelectasis. Small opacities are also present within the middle lobe possibly -representing rounded atelectasis and/or infiltrates. There also appears to be some mild dependent atelectasis in the left lung base. Trace right-sided effusion. - Minimal linear scarring changes left lingular region. Suspect mild underlying pulmonary venous congestive changes. There also appears to be a few scattered parenchymal calcifications likely representing granulomata within both lower lung liu as well. Cardiomegaly. - CXR PA/Lateral 04/09 - Mild bibasilar atelectasis and/or infiltrate changes seen in the right mid to lower lung field with suspected mild left basilar atelectasis HX of CHF with preserved EF - Cardiology, Dr. Dobbs consulted - Continue current regimen for BP control - 1500 mL/day fluid restricted diet - ProBNP: 29,300- increased from previous admissions - Previous Echo (08/2017): LV normal size, borderline LV hypertrophy, Systolic function borderline, mild septal hypokinesis, LVEF >50% - No additional echo indicated on this admission as patient is not showing symptoms of heart failure COPD exacerbation-resolved - Pulmonology, Dr. Lebron consulted - Duoneb Q6 PRN - Atrovent INH Q6 PRN - Patient is stable, O2 % saturation: 95-100% on room air Scabies - Resolved - Off contact precautions - Benadryl cream BID prn for pruritis - Vitamin A and D TOP BID Prophylaxis/diet: - DVT: Lovenox 40units qd, SCDs - GI: Protonix 40mg IVP daily - discontinued, no longer needed Dispo: Pending Medicaid approval. CM helping to secure assisted placement. f/u AM CMP, trend LFTs, f/u Abd US <Dominique Richey V - Last Filed: 05/10/18 21:11> Objective - Vital Signs/Intake and Output Vital Signs (last 24 hours): Temp Pulse Resp BP Pulse Ox 98.8 F 76 20 109/70 98 05/10/18 16:00 05/10/18 16:00 05/10/18 16:00 05/10/18 16:00 05/10/18 16:00 Intake and Output: 05/10/18 05/11/18 18:59 06:59 Intake Total 480 Balance 480 - Medications Medications: Current Medications Amlodipine Besylate (Norvasc) 10 mg PO DAILY [facility] Last Admin: 05/10/18 09:51 Dose: 10 mg Aspirin (Ecotrin) 81 mg PO DAILY [facility] Last Admin: 05/10/18 09:51 Dose: 81 mg Enoxaparin Sodium (Lovenox) 40 mg SC DAILY [facility] Last Admin: 05/10/18 09:51 Dose: 40 mg Isosorbide Mononitrate (Ismo) 20 mg PO DAILY [facility] Last Admin: 05/10/18 09:52 Dose: 20 mg Lactic Acid (Lac-Hydrin 12% Lotion (225 G)) 0 gm EXT Q12H [facility] Last Admin: 05/10/18 12:22 Dose: 1 applic Lactobacillus Acidophilus (Bacid Acidophilus) 1 cap PO BID [facility] Last Admin: 05/10/18 18:03 Dose: 1 cap Lisinopril (Zestril) 40 mg PO DAILY [facility] Last Admin: 05/10/18 09:51 Dose: 40 mg Rosuvastatin Calcium (Crestor) 5 mg PO HS [facility] Last Admin: 05/03/18 21:32 Dose: 5 mg Vitamin A (Vitamin A & D Oint Ud Foilpak) 1 ea TOP BID [facility] Last Admin: 05/10/18 18:03 Dose: 1 ea - Labs Labs: 05/07/18 07:11 05/09/18 08:13 PT 16.4 SECONDS (9.7-12.2) H 04/06/18 07:35 INR 1.5 04/06/18 07:35 APTT 28 SECONDS (21-34) 04/06/18 07:35 Attending/Attestation - Attestation I have personally seen and examined this patient.: Yes I have fully participated in the care of the patient.: Yes I have reviewed all pertinent clinical information, including history, physical exam and plan: Yes Notes (Text): This is late computer entry for 05/09/18. patient seen, examined and case discussed with day-time resident. Patient's hepatitis serology shows hepatitis C reactive, I did discussed this finding with the patient which he seemed a little bit surprised by it. Patient does have tattoos, and unclear about drug use. Abdominal US shows 05/08/18. cholelithiasis. no sonographic evidence of acute cholecystitis. Hepatic steatosis without focal abnormality. Will order for genotyping and viral load for hepatitis to confirm. Patient is pending discharge planning from social and case management.
[2018-05-09 08:43] LABS: ALBUMIN 3.9 g/dL (3.5-5.0); ALT/SGPT 203 U/L (21-72); AST/SGOT 134 U/L (17-59); BLOOD UREA NITROGEN 54 mg/dL (9-20); CALCIUM 9.6 mg/dl (8.6-10.4); GFR NON-AFRICAN AMERICAN > 60
[2018-05-09 09:05] LABS: HEPATITIS B SURFACE AG Negative (NEGATIVE)
[2018-05-09 09:10] LABS: HEPATITIS A IGM NEGATIVE (NEGATIVE); HEPATITIS B CORE AB NEGATIVE (NEGATIVE)
[2018-05-09] MEDS: Enoxaparin 40 mg Syringe SC SCH (10:20)
[2018-05-09] MEDS: Lactobacillus Acidophilus 500 MU Cap PO SCH ×2 (10:20→17:50)
[2018-05-09] MEDS: Vitamins A & D Oint UD Foilpak TOP SCH ×2 (10:21→17:50)
[2018-05-09 11:32] LABS: HEPATITIS C ANTIBODY REACTIVE (NEGATIVE)
--- NOTE | 2018-05-09 17:08 | CP.PCM.PN ---
<Buzz Nash - Last Filed: 05/09/18 17:06> Subjective - Date & Time of Evaluation Date of Evaluation: 05/08/18 Time of Evaluation: 08:00 - Subjective Subjective: error, note did not save from yesterday Hospitalist Service Pt [place] dn examined at bedside, denies fc nv sob, no acute events overnight Objective - Vital Signs/Intake and Output Vital Signs (last 24 hours): Temp Pulse Resp BP Pulse Ox 97.8 F 85 20 117/75 98 05/09/18 15:00 05/09/18 15:00 05/09/18 15:00 05/09/18 15:00 05/09/18 15:00 Intake and Output: 05/09/18 05/09/18 06:59 18:59 Intake Total 500 500 Balance 500 500 - Medications Medications: Current Medications Amlodipine Besylate (Norvasc) 10 mg PO DAILY [facility] Last Admin: 05/09/18 10:20 Dose: 10 mg Aspirin (Ecotrin) 81 mg PO DAILY [facility] Last Admin: 05/09/18 10:20 Dose: 81 mg Enoxaparin Sodium (Lovenox) 40 mg SC DAILY [facility] Last Admin: 05/09/18 10:20 Dose: 40 mg Isosorbide Mononitrate (Ismo) 20 mg PO DAILY [facility] Last Admin: 05/09/18 10:20 Dose: 20 mg Lactic Acid (Lac-Hydrin 12% Lotion (225 G)) 0 gm EXT Q12H [facility] Last Admin: 05/09/18 05:23 Dose: Not Given Lactobacillus Acidophilus (Bacid Acidophilus) 1 cap PO BID [facility] Last Admin: 05/09/18 10:20 Dose: 1 cap Lisinopril (Zestril) 40 mg PO DAILY [facility] Last Admin: 05/09/18 10:20 Dose: 40 mg Rosuvastatin Calcium (Crestor) 5 mg PO HS [facility] Last Admin: 05/03/18 21:32 Dose: 5 mg Vitamin A (Vitamin A & D Oint Ud Foilpak) 1 ea TOP BID [facility] Last Admin: 05/09/18 10:21 Dose: 1 ea - Labs Labs: 05/07/18 07:11 05/09/18 08:13 PT 16.4 SECONDS (9.7-12.2) H 11/02/18 07:35 INR 1.5 04/06/18 07:35 APTT 28 SECONDS (21-34) 04/06/18 07:35 - Additional Findings Additional findings: Constitutional Appears: Non-toxic, No Acute Distress - Head Exam Head Exam: ATRAUMATIC, NORMAL INSPECTION, NORMOCEPHALIC - Eye Exam Eye Exam: Normal appearance - ENT Exam ENT Exam: Mucous Membranes Moist - Respiratory Exam Respiratory Exam: Clear to Ausculation Bilateral, NORMAL BREATHING PATTERN. absent: Rhonchi, Wheezes - Cardiovascular Exam Cardiovascular Exam: +S1, +S2. absent: Murmur - GI/Abdominal Exam GI & Abdominal Exam: Soft, Normal Bowel Sounds. absent: Firm, Guarding, Rigid - Extremities Exam Extremities Exam: Full ROM. absent: Calf Tenderness, Pedal Edema - Back Exam Back Exam: absent: CVA tenderness (L), CVA tenderness (R) - Neurological Exam Neurological Exam: Alert, Awake - Skin Skin Exam: Dry, Intact, Normal Color, Warm Additional comments: xerosis on b/l feet, abnormal pigmentation or abnormal growths noted, Rigid hammertoe contractures Assessment and Plan - Assessment and Plan (Free Text) Assessment: Assessment and Plan - Assessment and Plan (Free Text) Assessment: 58 year old male with PMHx of HTN, ETOH abuse, CHF, and CVA presented to the ED for foot pain and with altered mental status. Patient currently stable on medicine floor. No longer need daily labs, now weekly on Plan: [facility] - initial admission, patient in [facility], resolved, now returned likely 2/2 dehydration - Nephrology consulted- Dr. Lizarraga- recs below - Avoid nephrotoxic agents (NSAIDS, phosphate enema) - will hold chlorthiladone 25 mg daily - Will hold fluids due to underly CHF, will encourage gentle PO hydration - Renal artery duplex - possible significant GLADIS - - Renal ultrasound (04/05): non-obstructive left nephrolithiasis. Otherwise normal ultrasound Left Foot Hammertoes and Heel Spurs - Pt ambulates with help of rolling walker. Tolerating PT. - No evidence of cellulitis, lower extremities show blanchable erythema - Podiatry, Dr. Gomez consulted- signed off; reconsult if necessary; no need for acute surgical intervention - Betadine soak leonidas interphalangel toe spaces w/ krillex wrap - Blood culture (04/04): No growth x 5 days - Lower extremities venous doppler: negative for DVT - Foot Xray (04/03): Degenerative changes of the forefoot. No acute fractures, subluxations. B/l hammertoe deformities are identified diffusely. Severe hallux valgus deformity noted. Large plantar calcaneal spurs b/l. - PT/ OT recommended for gait training Hypertension, uncontrolled - Patient not compliant with previous discharge meds. Given decreased mental capacity at baseline, it is unlikely he will be capable of taking his daily - medications without assistance. - Imdur 20mg PO daily - Lisinopril 10mg PO daily - Amlodipine 10mg PO daily - Hydralazine decreased from 75 mg PO TID to 50 mg BID. Continue to taper and monitor BP. - Chlorthalidone 25 mg PO daily added - Secondary HTN workup: - Renal artery duplex 04/05/2018: RIGHT: Findings suggestive of hemodynamically significant stenosis of the right renal artery, proximal segment. LEFT: No - definite hemodynamically significant stenosis involving the renal arteries as visualized. - Dr. Lizarraga has been following this patient and does not feel that this is significant GLADIS that would require intervention/stent. HTN to continue to be managed -medically. - Plasma metanephrines WNL - Aldosterone/Plasma renin activity: Aldosterone <1, Renin 12.25 - ASA 81 mg PO daily - Crestor 5 mg PO HS History of chronic alcohol abuse: - Monitor for signs of withdrawal - Serum alcohol level: < 10 - Upon review of prior records, patient is known to present with altered mental status 2/2 alcohol intoxication - UDS: Negative - Ativan taper finished on 04/09 - Continue Ativan 1mg IV Q6 PRN for withdrawal sx - Vitamin B12: 511m Folate levels: > 20 - Thiamine, folic acid, multivitamin - Ammonia level rechecked 04/11 - < 9 - CT head (04/04): Chronic microvascular ischemic changes. 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 B/l basal ganglia and R thalamic lacunar infarcts. Focal encephalomalacia in the R duenas radiata. Pleural Effusion / Possible Pulmonary Infiltrates - Pulmonology, Dr. Lebron consulted - Abx Course finished - (Doxycycline 100 mg IV Q12H, Ceftriaxone 1mg IV Q24H) - Atrovent INH Q6 PRN - Legionella, s. pneumonia, influenza: Negative - Mycoplasma Ig.19 (normal: < 0.9), Mycoplasma IgM: negative - CXR (04/04): Limited patchy atelectasis medial right base with remaining lung liu clear. Stable prominent cardiac silhouette. - CT chest (04/04): Small to medium size right-sided effusion and mild right basilar atelectasis. Small opacities are also present within the middle lobe possibly -representing rounded atelectasis and/or infiltrates. There also appears to be some mild dependent atelectasis in the left lung base. Trace rig ht-sided effusion. - Minimal linear scarring changes left lingular region. Suspect mild underlying pulmonary venous congestive changes. There also appears to be a few scattered parenchymal calcifications likely representing granulomata within both lower lung liu as well. Cardiomegaly. - CXR PA/Lateral 04/09 - Mild bibasilar atelectasis and/or infiltrate changes seen in the right mid to lower lung field with suspected mild left basilar atelectasis HX of CHF with preserved EF - Cardiology, Dr. Dobbs consulted - Continue current regimen for BP control - 1500 mL/day fluid restricted diet - ProBNP: 29,300- increased from previous admissions - Previous Echo (08/2017): LV normal size, borderline LV hypertrophy, Systolic function borderline, mild septal hypokinesis, LVEF >50% - No additional echo indicated on this admission as patient is not showing symptoms of heart failure COPD exacerbation-resolved - Pulmonology, Dr. Lebron consulted - Duoneb Q6 PRN - Atrovent INH Q6 PRN - Patient is stable, O2 % saturation: 95-100% on room air Scabies - Resolved - Off contact precautions - Benadryl cream BID prn for pruritis - Vitamin A and D TOP BID Prophylaxis/diet: - DVT: Lovenox 40units qd, SCDs - GI: Protonix 40mg IVP daily - discontinued, no longer needed Dispo: Pending Medicaid approval. CM helping to secure custodial placement. <Dominique Richey V - Last Filed: 05/10/18 21:08> Objective - Vital Signs/Intake and Output Vital Signs (last 24 hours): Temp Pulse Resp BP Pulse Ox 98.8 F 76 20 109/70 98 05/10/18 16:00 05/10/18 16:00 05/10/18 16:00 05/10/18 16:00 05/10/18 16:00 Intake and Output: 05/10/18 05/11/18 18:59 06:59 Intake Total 480 Balance 480 - Medications Medications: Current Medications Amlodipine Besylate (Norvasc) 10 mg PO DAILY [facility] Last Admin: 05/10/18 09:51 Dose: 10 mg Aspirin (Ecotrin) 81 mg PO DAILY [facility] Last Admin: 05/10/18 09:51 Dose: 81 mg Enoxaparin Sodium (Lovenox) 40 mg SC DAILY [facility] Last Admin: 05/10/18 09:51 Dose: 40 mg Isosorbide Mononitrate (Ismo) 20 mg PO DAILY [facility] Last Admin: 05/10/18 09:52 Dose: 20 mg Lactic Acid (Lac-Hydrin 12% Lotion (225 G)) 0 gm EXT Q12H [facility] Last Admin: 05/10/18 12:22 Dose: 1 applic Lactobacillus Acidophilus (Bacid Acidophilus) 1 cap PO BID [facility] Last Admin: 05/10/18 18:03 Dose: 1 cap Lisinopril (Zestril) 40 mg PO DAILY [facility] Last Admin: 05/10/18 09:51 Dose: 40 mg Rosuvastatin Calcium (Crestor) 5 mg PO HS [facility] Last Admin: 05/03/18 21:32 Dose: 5 mg Vitamin A (Vitamin A & D Oint Ud Foilpak) 1 ea TOP BID [facility] Last Admin: 05/10/18 18:03 Dose: 1 ea - Labs Labs: 05/07/18 07:11 05/09/18 08:13 PT 16.4 SECONDS (9.7-12.2) H 04/06/18 07:35 INR 1.5 04/06/18 07:35 APTT 28 SECONDS (21-34) 04/06/18 07:35 Attending/Attestation - Attestation I have personally seen and examined this patient.: Yes I have fully participated in the care of the patient.: Yes I have reviewed all pertinent clinical information, including history, physical exam and plan: Yes Notes (Text): This is late computer entry for 05/08/18. Patient seen, examined, and case discussed with day-time resident. Patient continues to have elevated liver function tests. patient ordered for hepatitis serology and abdominal US. Patient is clinically the same. Will need to f/u with social/case management regarding discharge planning. Patient's statin on hold since 05/03 given transaminitis.
[2018-05-10] MEDS: Ammonium Lactate 12% Lotion (225 g) EXT SCH ×2 (00:35→12:22)
--- NOTE | 2018-05-10 07:33 | CP.PCM.PN ---
<CorbinjaswantBuzz bernal - Last Filed: 05/10/18 07:29> Subjective - Date & Time of Evaluation Date of Evaluation: 05/10/18 Time of Evaluation: 07:29 - Subjective Subjective: HOSPITALIST SERVICE Pt seen and examined at bedside, denies any acute events overnight, explained to pt he came up positive for Hepatitis and he asked appropriate question about followup care, pt understand plan but has limited insight. Pt denies CP SOB FC NV. Objective - Vital Signs/Intake and Output Vital Signs (last 24 hours): Temp Pulse Resp BP Pulse Ox 97.9 F 71 20 117/74 95 05/10/18 00:00 05/10/18 00:00 05/10/18 00:00 05/10/18 00:00 05/10/18 00:00 Intake and Output: 05/10/18 05/10/18 06:59 18:59 Intake Total 400 Balance 400 - Medications Medications: Current Medications Amlodipine Besylate (Norvasc) 10 mg PO DAILY [facility] Last Admin: 05/09/18 10:20 Dose: 10 mg Aspirin (Ecotrin) 81 mg PO DAILY [facility] Last Admin: 05/09/18 10:20 Dose: 81 mg Enoxaparin Sodium (Lovenox) 40 mg SC DAILY [facility] Last Admin: 05/09/18 10:20 Dose: 40 mg Isosorbide Mononitrate (Ismo) 20 mg PO DAILY [facility] Last Admin: 05/09/18 10:20 Dose: 20 mg Lactic Acid (Lac-Hydrin 12% Lotion (225 G)) 0 gm EXT Q12H [facility] Last Admin: 05/10/18 00:35 Dose: 1 applic Lactobacillus Acidophilus (Bacid Acidophilus) 1 cap PO BID [facility] Last Admin: 05/09/18 17:50 Dose: 1 cap Lisinopril (Zestril) 40 mg PO DAILY [facility] Last Admin: 05/09/18 10:20 Dose: 40 mg Rosuvastatin Calcium (Crestor) 5 mg PO HS [facility] Last Admin: 05/03/18 21:32 Dose: 5 mg Vitamin A (Vitamin A & D Oint Ud Foilpak) 1 ea TOP BID [facility] Last Admin: 05/09/18 17:50 Dose: 1 ea - Labs Labs: 05/07/18 07:11 05/09/18 08:13 PT 16.4 SECONDS (9.7-12.2) H 04/06/18 07:35 INR 1.5 04/06/18 07:35 APTT 28 SECONDS (21-34) 04/06/18 07:35 - Additional Findings Additional findings: - Constitutional Appears: Non-toxic, No Acute Distress - Head Exam Head Exam: ATRAUMATIC, NORMAL INSPECTION, NORMOCEPHALIC - Eye Exam Eye Exam: Normal appearance - ENT Exam ENT Exam: Mucous Membranes Moist - Respiratory Exam Respiratory Exam: Clear to Ausculation Bilateral, NORMAL BREATHING PATTERN. absent: Rhonchi, Wheezes - Cardiovascular Exam Cardiovascular Exam: +S1, +S2. absent: Murmur - GI/Abdominal Exam GI & Abdominal Exam: Soft, Normal Bowel Sounds. absent: Firm, Guarding, Rigid - Extremities Exam Extremities Exam: Full ROM. absent: Calf Tenderness, Pedal Edema - Back Exam Back Exam: absent: CVA tenderness (L), CVA tenderness (R) - Neurological Exam Neurological Exam: Alert, Awake - Skin Skin Exam: Dry, Intact, Normal Color, Warm Additional comments: xerosis on b/l feet, abnormal pigmentation or abnormal growths noted, Rigid hammertoe contractures Assessment and Plan - Assessment and Plan (Free Text) Assessment: 58 year old male with PMHx of HTN, ETOH abuse, CHF, and CVA presented to the ED for foot pain and with altered mental status. Patient currently stable on medicine floor. No longer need daily labs, now weekly on Plan: JASWANT - initial admission, patient in JASWANT, resolved, now returned likely 2/2 dehydration - Nephrology consulted- Dr. Lizarraga- recs below - Avoid nephrotoxic agents (NSAIDS, phosphate enema) - will hold chlorthiladone 25 mg daily - Will hold fluids due to underly CHF, will encourage gentle PO hydration - Renal artery duplex - possible significant GLADIS - - Renal ultrasound (04/05): non-obstructive left nephrolithiasis. Otherwise normal ultrasound Left Foot Hammertoes and Heel Spurs - Pt ambulates with help of rolling walker. Tolerating PT. - No evidence of cellulitis, lower extremities show blanchable erythema - Podiatry, Dr. Gomez consulted- signed off; reconsult if necessary; no need fo r acute surgical intervention - Betadine soak leonidas interphalangel toe spaces w/ krillex wrap - Blood culture (04/04): No growth x 5 days - Lower extremities venous doppler: negative for DVT - Foot Xray (04/03): Degenerative changes of the forefoot. No acute fractures, subluxations. B/l hammertoe deformities are identified diffusely. Severe hallux valgus deformity noted. Large plantar calcaneal spurs b/l. - PT/ OT recommended for gait training Hepatitis C - hep c ab pos - f/u confirmatory serology -Abd US shows Hepatic Steatosis, no fibrosis, cholelithiasis, kidneys unremarkable Hypertension, uncontrolled - Patient not compliant with previous discharge meds. Given decreased mental capacity at baseline, it is unlikely he will be capable of taking his daily - medications without assistance. - Imdur 20mg PO daily - Lisinopril 10mg PO daily - Amlodipine 10mg PO daily - Hydralazine decreased from 75 mg PO TID to 50 mg BID. Continue to taper and monitor BP. - Chlorthalidone 25 mg PO daily added - Secondary HTN workup: - Renal artery duplex 04/05/2018: RIGHT: Findings suggestive of hemodynamically significant stenosis of the right renal artery, proximal segment. LEFT: No - definite hemodynamically significant stenosis involving the renal arteries as visualized. - Dr. Lizarraga has been following this patient and does not feel that this is significant GLADIS that would require intervention/stent. HTN to continue to be managed -medically. - Plasma metanephrines WNL - Aldosterone/Plasma renin activity: Aldosterone <1, Renin 12.25 - ASA 81 mg PO daily - Crestor 5 mg PO HS History of chronic alcohol abuse: - Monitor for signs of withdrawal - Serum alcohol level: < 10 - Upon review of prior records, patient is known to present with altered mental status 2/2 alcohol intoxication - UDS: Negative - Ativan taper finished on 04/09 - Continue Ativan 1mg IV Q6 PRN for withdrawal sx - Vitamin B12: 511m Folate levels: > 20 - Thiamine, folic acid, multivitamin - Ammonia level rechecked 04/11 - < 9 - CT head (04/04): Chronic microvascular ischemic changes. 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 B/l basal ganglia and R thalamic lacunar infarcts. Focal encephalomalacia in the R duenas radiata. Pleural Effusion / Possible Pulmonary Infiltrates - Pulmonology, Dr. Lebron consulted - Abx Course finished - (Doxycycline 100 mg IV Q12H, Ceftriaxone 1mg IV Q24H) - Atrovent INH Q6 PRN - Legionella, s. pneumonia, influenza: Negative - Mycoplasma Ig.19 (normal: < 0.9), Mycoplasma IgM: negative - CXR (04/04): Limited patchy atelectasis medial right base with remaining lung liu clear. Stable prominent cardiac silhouette. - CT chest (04/04): Small to medium size right-sided effusion and mild right basilar atelectasis. Small opacities are also present within the middle lobe po ssibly -representing rounded atelectasis and/or infiltrates. There also appears to be some mild dependent atelectasis in the left lung base. Trace right-sided effusion. - Minimal linear scarring changes left lingular region. Suspect mild underlying pulmonary venous congestive changes. There also appears to be a few scattered parenchymal calcifications likely representing granulomata within both lower lung liu as well. Cardiomegaly. - CXR PA/Lateral 04/09 - Mild bibasilar atelectasis and/or infiltrate changes seen in the right mid to lower lung field with suspected mild left basilar atelectasis HX of CHF with preserved EF - Cardiology, Dr. Dobbs consulted - Continue current regimen for BP control - 1500 mL/day fluid restricted diet - ProBNP: 29,300- increased from previous admissions - Previous Echo (08/2017): LV normal size, borderline LV hypertrophy, Systolic function borderline, mild septal hypokinesis, LVEF >50% - No additional echo indicated on this admission as patient is not showing symptoms of heart failure COPD exacerbation-resolved - Pulmonology, Dr. Lebron consulted - Duoneb Q6 PRN - Atrovent INH Q6 PRN - Patient is stable, O2 % saturation: 95-100% on room air Scabies - Resolved - Off contact precautions - Benadryl cream BID prn for pruritis - Vitamin A and D TOP BID Prophylaxis/diet: - DVT: Lovenox 40units qd, SCDs - GI: Protonix 40mg IVP daily - discontinued, no longer needed Dispo: Pending Medicaid approval. CM helping to secure skilled nursing placement. <Dominique Richey V - Last Filed: 05/10/18 21:13> Objective - Vital Signs/Intake and Output Vital Signs (last 24 hours): Temp Pulse Resp BP Pulse Ox 98.8 F 76 20 109/70 98 05/10/18 16:00 05/10/18 16:00 05/10/18 16:00 05/10/18 16:00 05/10/18 16:00 Intake and Output: 05/10/18 05/11/18 18:59 06:59 Intake Total 480 Balance 480 - Medications Medications: Current Medications Amlodipine Besylate (Norvasc) 10 mg PO DAILY [facility] Last Admin: 05/10/18 09:51 Dose: 10 mg Aspirin (Ecotrin) 81 mg PO DAILY [facility] Last Admin: 05/10/18 09:51 Dose: 81 mg Enoxaparin Sodium (Lovenox) 40 mg SC DAILY [facility] Last Admin: 05/10/18 09:51 Dose: 40 mg Isosorbide Mononitrate (Ismo) 20 mg PO DAILY [facility] Last Admin: 05/10/18 09:52 Dose: 20 mg Lactic Acid (Lac-Hydrin 12% Lotion (225 G)) 0 gm EXT Q12H [facility] Last Admin: 05/10/18 12:22 Dose: 1 applic Lactobacillus Acidophilus (Bacid Acidophilus) 1 cap PO BID [facility] Last Admin: 05/10/18 18:03 Dose: 1 cap Lisinopril (Zestril) 40 mg PO DAILY [facility] Last Admin: 05/10/18 09:51 Dose: 40 mg Rosuvastatin Calcium (Crestor) 5 mg PO HS [facility] Last Admin: 05/03/18 21:32 Dose: 5 mg Vitamin A (Vitamin A & D Oint Ud Foilpak) 1 ea TOP BID [facility] Last Admin: 05/10/18 18:03 Dose: 1 ea - Labs Labs: 05/07/18 07:11 05/09/18 08:13 PT 16.4 SECONDS (9.7-12.2) H 04/06/18 07:35 INR 1.5 04/06/18 07:35 APTT 28 SECONDS (21-34) 04/06/18 07:35 Attending/Attestation - Attestation I have personally seen and examined this patient.: Yes I have fully participated in the care of the patient.: Yes I have reviewed all pertinent clinical information, including history, physical exam and plan: Yes Notes (Text): Patient seen, examined and case discussed with medical review coordinator. Pending genotyping and hep C viral load. Patient is pending discharge planning. Follow up with case and social work. Continue present management. monitor liver function tests.
[2018-05-10] MEDS: Enoxaparin 40 mg Syringe SC SCH (09:51)
[2018-05-10] MEDS: Vitamins A & D Oint UD Foilpak TOP SCH ×2 (09:51→18:03)
[2018-05-10] MEDS: Lactobacillus Acidophilus 500 MU Cap PO SCH ×2 (09:52→18:03)
[2018-05-11] MEDS: Ammonium Lactate 12% Lotion (225 g) EXT SCH ×2 (00:29→13:00)
[2018-05-11 07:12] LABS: ALB/GLOB RATIO 0.9 (1.0-2.1); ALBUMIN 3.6 g/dL (3.5-5.0); ALT/SGPT 199 U/L (21-72); AST/SGOT 124 U/L (17-59); BLOOD UREA NITROGEN 57 mg/dL (9-20); CALCIUM 9.5 mg/dl (8.6-10.4); GFR NON-AFRICAN AMERICAN > 60
--- NOTE | 2018-05-11 07:42 | CP.PCM.PN ---
<Buzz Nash - Last Filed: 05/11/18 07:47> Subjective - Date & Time of Evaluation Date of Evaluation: 05/11/18 Time of Evaluation: 07:40 - Subjective Subjective: HOSPITALIST SERVICE Pt seen and examined at bedside. Denies acute events overnight, understands current status and agrees with plan however has limited insight due to chronic cognitive impairment. Denies FC NV CP SOB Objective - Vital Signs/Intake and Output Vital Signs (last 24 hours): Temp Pulse Resp BP Pulse Ox 97.8 F 73 20 128/80 99 05/11/18 00:00 05/11/18 00:00 05/11/18 00:00 05/11/18 00:00 05/11/18 00:00 Intake and Output: 05/11/18 05/11/18 06:59 18:59 Intake Total 550 Output Total 300 Balance 250 - Medications Medications: Current Medications Amlodipine Besylate (Norvasc) 10 mg PO DAILY [facility] Last Admin: 05/10/18 09:51 Dose: 10 mg Aspirin (Ecotrin) 81 mg PO DAILY [facility] Last Admin: 05/10/18 09:51 Dose: 81 mg Enoxaparin Sodium (Lovenox) 40 mg SC DAILY [facility] Last Admin: 05/10/18 09:51 Dose: 40 mg Isosorbide Mononitrate (Ismo) 20 mg PO DAILY [facility] Last Admin: 05/10/18 09:52 Dose: 20 mg Lactic Acid (Lac-Hydrin 12% Lotion (225 G)) 0 gm EXT Q12H [facility] Last Admin: 05/11/18 00:29 Dose: 1 applic Lactobacillus Acidophilus (Bacid Acidophilus) 1 cap PO BID [facility] Last Admin: 05/10/18 18:03 Dose: 1 cap Lisinopril (Zestril) 40 mg PO DAILY [facility] Last Admin: 05/10/18 09:51 Dose: 40 mg Rosuvastatin Calcium (Crestor) 5 mg PO HS [facility] Last Admin: 05/03/18 21:32 Dose: 5 mg Vitamin A (Vitamin A & D Oint Ud Foilpak) 1 ea TOP BID [facility] Last Admin: 05/10/18 18:03 Dose: 1 ea - Labs Labs: 05/07/18 07:11 05/11/18 06:32 PT 16.4 SECONDS (9.7-12.2) H 04/06/18 07:35 INR 1.5 04/06/18 07:35 APTT 28 SECONDS (21-34) 04/06/18 07:35 - Additional Findings Additional findings: - Constitutional Appears: Non-toxic, No Acute Distress - Head Exam Head Exam: ATRAUMATIC, NORMAL INSPECTION, NORMOCEPHALIC - Eye Exam Eye Exam: Normal appearance - ENT Exam ENT Exam: Mucous Membranes Moist - Respiratory Exam Respiratory Exam: Clear to Ausculation Bilateral, NORMAL BREATHING PATTERN. absent: Rhonchi, Wheezes - Cardiovascular Exam Cardiovascular Exam: +S1, +S2. absent: Murmur - GI/Abdominal Exam GI & Abdominal Exam: Soft, Normal Bowel Sounds. absent: Firm, Guarding, Rigid - Extremities Exam Extremities Exam: Full ROM. absent: Calf Tenderness, Pedal Edema - Back Exam Back Exam: absent: CVA tenderness (L), CVA tenderness (R) - Neurological Exam Neurological Exam: Alert, Awake - Skin Skin Exam: Dry, Intact, Normal Color, Warm Additional comments: xerosis on b/l feet, abnormal pigmentation or abnormal growths noted, Rigid hammertoe contractures Assessment and Plan - Assessment and Plan (Free Text) Assessment: 58 year old male with PMHx of HTN, ETOH abuse, CHF, and CVA presented to the ED for foot pain and with altered mental status. Patient currently stable on medicine floor. No longer need daily labs, now weekly on Plan: JASWANT - initial admission, patient in JASWANT, resolved, now returned likely 2/2 dehydration - Nephrology consulted- Dr. Lizarraga- recs below - Avoid nephrotoxic agents (NSAIDS, phosphate enema) - will hold chlorthiladone 25 mg daily - Will hold fluids due to underly CHF, will encourage gentle PO hydration - Renal artery duplex - possible significant GLADIS - - Renal ultrasound (04/05): non-obstructive left nephrolithiasis. Otherwise normal ultrasound Left Foot Hammertoes and Heel Spurs - Pt ambulates with help of rolling walker. Tolerating PT. - No evidence of cellulitis, lower extremities show blanchable erythema - Podiatry, Dr. Gomez consulted- signed off; reconsult if necessary; no need for acute surgical intervention - Betadine soak leonidas interphalangel toe spaces w/ krillex wrap - Blood culture (04/04): No growth x 5 days - Lower extremities venous doppler: negative for DVT - Foot Xray (04/03): Degenerative changes of the forefoot. No acute fractures, subluxations. B/l hammertoe deformities are identified diffusely. Severe hallux valgus deformity noted. Large plantar calcaneal spurs b/l. - PT/ OT recommended for gait training Hepatitis C - hep c ab pos - f/u confirmatory serology -Abd US shows Hepatic Steatosis, no fibrosis, cholelithiasis, kidneys unremarkable -Hep C cut off ratio >30 confirmed positive Hypertension, uncontrolled - Patient not compliant with previous discharge meds. Given decreased mental capacity at baseline, it is unlikely he will be capable of taking his daily - medications without assistance. - Imdur 20mg PO daily - Lisinopril 10mg PO daily - Amlodipine 10mg PO daily - Hydralazine decreased from 75 mg PO TID to 50 mg BID. Continue to taper and monitor BP. - Chlorthalidone 25 mg PO daily added - Secondary HTN workup: - Renal artery duplex 04/05/2018: RIGHT: Findings suggestive of hemodynamically significant stenosis of the right renal artery, proximal segment. LEFT: No - definite hemodynamically significant stenosis involving the renal arteries as visualized. - Dr. Lizarraga has been following this patient and does not feel that this is significant GLADIS that would require intervention/stent. HTN to continue to be managed -medically. - Plasma metanephrines WNL - Aldosterone/Plasma renin activity: Aldosterone <1, Renin 12.25 - ASA 81 mg PO daily - Crestor 5 mg PO HS History of chronic alcohol abuse: - Monitor for signs of withdrawal - Serum alcohol level: < 10 - Upon review of prior records, patient is known to present with altered mental status 2/2 alcohol intoxication - UDS: Negative - Ativan taper finished on 04/09 - Continue Ativan 1mg IV Q6 PRN for withdrawal sx - Vitamin B12: 511m Folate levels: > 20 - Thiamine, folic acid, multivitamin - Ammonia level rechecked 04/11 - < 9 - CT head (04/04): Chronic microvascular ischemic changes. 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 B/l basal ganglia and R thalamic lacunar infarcts. Focal encephalomalacia in the R duenas radiata. Pleural Effusion / Possible Pulmonary Infiltrates - Pulmonology, Dr. Lebron consulted - Abx Course finished - (Doxycycline 100 mg IV Q12H, Ceftriaxone 1mg IV Q24H) - Atrovent INH Q6 PRN - Legionella, s. pneumonia, influenza: Negative - Mycoplasma Ig.19 (normal: < 0.9), Mycoplasma IgM: negative - CXR (04/04): Limited patchy atelectasis medial right base with remaining lung liu clear. Stable prominent cardiac silhouette. - CT chest (04/04): Small to medium size right-sided effusion and mild right basilar atelectasis. Small opacities are also present within the middle lobe possibly -representing rounded atelectasis and/or infiltrates. There also appear s to be some mild dependent atelectasis in the left lung base. Trace right-sided effusion. - Minimal linear scarring changes left lingular region. Suspect mild underlying pulmonary venous congestive changes. There also appears to be a few scattered parenchymal calcifications likely representing granulomata within both lower lung liu as well. Cardiomegaly. - CXR PA/Lateral 04/09 - Mild bibasilar atelectasis and/or infiltrate changes seen in the right mid to lower lung field with suspected mild left basilar atelectasis HX of CHF with preserved EF - Cardiology, Dr. Dobbs consulted - Continue current regimen for BP control - 1500 mL/day fluid restricted diet - ProBNP: 29,300- increased from previous admissions - Previous Echo (08/2017): LV normal size, borderline LV hypertrophy, Systolic function borderline, mild septal hypokinesis, LVEF >50% - No additional echo indicated on this admission as patient is not showing symptoms of heart failure COPD exacerbation-resolved - Pulmonology, Dr. Lebron consulted - Duoneb Q6 PRN - Atrovent INH Q6 PRN - Patient is stable, O2 % saturation: 95-100% on room air Scabies - Resolved - Off contact precautions - Benadryl cream BID prn for pruritis - Vitamin A and D TOP BID Prophylaxis/diet: - DVT: Lovenox 40units qd, SCDs - GI: Protonix 40mg IVP daily - discontinued, no longer needed Dispo: Pending Medicaid approval. CM helping to secure shelter placement. <Dominique Richey V - Last Filed: 12/23/18 16:18> Objective - Vital Signs/Intake and Output Vital Signs (last 24 hours): Temp Pulse Resp BP Pulse Ox 97.5 F L 61 20 122/82 97 05/27/18 08:03 05/27/18 08:03 05/27/18 08:03 05/27/18 08:03 05/27/18 08:03 Intake and Output: 05/27/18 05/27/18 06:59 18:59 Intake Total 550 480 Balance 550 480 - Medications Medications: Current Medications Amlodipine Besylate (Norvasc) 10 mg PO DAILY [facility] Last Admin: 05/27/18 09:06 Dose: 10 mg Aspirin (Ecotrin) 81 mg PO DAILY [facility] Last Admin: 05/27/18 09:06 Dose: 81 mg Enoxaparin Sodium (Lovenox) 40 mg SC DAILY [facility] Last Admin: 05/27/18 09:06 Dose: 40 mg Folic Acid (Folic Acid) 1 mg PO DAILY [facility] Last Admin: 05/27/18 09:06 Dose: 1 mg Isosorbide Mononitrate (Ismo) 20 mg PO Q24H [facility] Last Admin: 05/27/18 10:48 Dose: 20 mg Lisinopril (Zestril) 40 mg PO Q24H [facility] Last Admin: 05/27/18 10:48 Dose: 40 mg Multivitamins (Hexavitamin) 1 tab PO DAILY [facility] Last Admin: 05/27/18 09:06 Dose: 1 tab Thiamine HCl (Vitamin B1 Tab) 100 mg PO DAILY [facility] Last Admin: 05/27/18 09:06 Dose: 100 mg Vitamin A (Vitamin A & D Oint Ud Foilpak) 1 ea TOP BID [facility] Last Admin: 05/27/18 09:05 Dose: 1 ea - Labs Labs: 05/21/18 06:32 05/24/18 07:17 PT 16.4 SECONDS (9.7-12.2) H 04/06/18 07:35 INR 1.5 04/06/18 07:35 APTT 28 SECONDS (21-34) 04/06/18 07:35 Attending/Attestation - Attestation I have personally seen and examined this patient.: Yes I have fully participated in the care of the patient.: Yes I have reviewed all pertinent clinical information, including history, physical exam and plan: Yes Notes (Text): This is late computer entry for 05/11/18. Patient seen, examined, and case discussed with day-time resident. Agree with assessment and plan as written by the resident. Patient awaiting workup to confirm hepatitis C. Monitor liver function tests.
[2018-05-11] MEDS: Vitamins A & D Oint UD Foilpak TOP SCH (10:02)
[2018-05-11] MEDS: Lactobacillus Acidophilus 500 MU Cap PO SCH ×2 (10:02→17:03)
[2018-05-11] MEDS: Enoxaparin 40 mg Syringe SC SCH (10:02)
[2018-05-12] MEDS: Ammonium Lactate 12% Lotion (225 g) EXT SCH ×2 (00:24→12:30)
--- NOTE | 2018-05-12 09:50 | CP.PCM.PN ---
Subjective - Date & Time of Evaluation Date of Evaluation: 05/12/18 Time of Evaluation: 09:45 - Subjective Subjective: Medical attending note Patient seen, examined. Patient is familiar with who I am. Patient recognizes he is at [facility]. Patient recognizes it is May. Patient denies acute complaints. Patient reports he is moving his bowels and urinating well. Objective - Vital Signs/Intake and Output Vital Signs (last 24 hours): Temp Pulse Resp BP Pulse Ox 98 F 78 20 114/71 98 05/12/18 00:00 05/12/18 00:00 05/12/18 00:00 05/12/18 00:00 05/12/18 00:00 Intake and Output: 05/12/18 05/12/18 06:59 18:59 Intake Total 550 Output Total 650 Balance -100 - Medications Medications: Current Medications Amlodipine Besylate (Norvasc) 10 mg PO DAILY [facility] Last Admin: 05/11/18 10:02 Dose: 10 mg Aspirin (Ecotrin) 81 mg PO DAILY [facility] Last Admin: 05/11/18 10:02 Dose: 81 mg Enoxaparin Sodium (Lovenox) 40 mg SC DAILY [facility] Last Admin: 05/11/18 10:02 Dose: 40 mg Isosorbide Mononitrate (Ismo) 20 mg PO DAILY [facility] Last Admin: 05/11/18 10:02 Dose: 20 mg Lactic Acid (Lac-Hydrin 12% Lotion (225 G)) 0 gm EXT Q12H [facility] Last Admin: 05/12/18 00:24 Dose: 1 applic Lactobacillus Acidophilus (Bacid Acidophilus) 1 cap PO BID [facility] Last Admin: 05/11/18 17:03 Dose: 1 cap Lisinopril (Zestril) 40 mg PO DAILY [facility] Last Admin: 05/11/18 10:02 Dose: 40 mg Rosuvastatin Calcium (Crestor) 5 mg PO HS [facility] Last Admin: 05/03/18 21:32 Dose: 5 mg - Labs Labs: 05/07/18 07:11 05/11/18 06:32 PT 16.4 SECONDS (9.7-12.2) H 04/06/18 07:35 INR 1.5 04/06/18 07:35 APTT 28 SECONDS (21-34) 04/06/18 07:35 - Constitutional Appears: Non-toxic, No Acute Distress - Head Exam Head Exam: NORMAL INSPECTION - Eye Exam Eye Exam: EOMI - ENT Exam ENT Exam: Mucous Membranes Moist - Respiratory Exam Respiratory Exam: Clear to Ausculation Bilateral, NORMAL BREATHING PATTERN. absent: Rales, Rhonchi, Wheezes - Cardiovascular Exam Cardiovascular Exam: REGULAR RHYTHM, +S1, +S2 - GI/Abdominal Exam GI & Abdominal Exam: Soft, Normal Bowel Sounds. absent: Distended, Firm, Guar ding, Rigid, Tenderness, Rebound - Extremities Exam Extremities Exam: absent: Pedal Edema, Tenderness - Neurological Exam Neurological Exam: Alert, Awake, Oriented x3 - Psychiatric Exam Psychiatric exam: Normal Affect, Normal Mood - Skin Skin Exam: Dry, Intact, Normal Color, Warm Attending/Attestation - Attestation I have personally seen and examined this patient.: Yes I have fully participated in the care of the patient.: Yes I have reviewed all pertinent clinical information, including history, physical exam and plan: Yes Notes (Text): Patient seen, examined. Patient denies acute complaints. Patient waiting for hepatitis viral load and genotyping in light of positive reactive hepatitis C. Patient is awaiting placement. I have spoken with the case and social yesterday they are working to long term tape placement. May take some time. Assessment/Plan 1) History of chronic alcohol abuse Assessment/Plan * Patient has completed ativan taper. * Patient is not in the window for withdrawal * Serum alcohol level: < 10 * Upon review of prior records, patient is known to present with altered mental status 2/2 alcohol intoxication * UDS: Negative * Vitamin B12: 511m Folate levels: > 20 * c/w Thiamine, folic acid, multivitamin * Ammonia is low 2) Deconditioning Assessment/Plan * PT walked with patient 04/23 -patient needs continued PT to regain independent ambulation without assistance/RW. * Per case management, patient will not be accepted to a homeless detention without ability to ambulate independently without a walker * Social work attempting to secure long term placement * CT head (04/04): Chronic microvascular ischemic changes. 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 B/l basal ganglia and R thalamic lacunar infarcts. Focal encephalomalacia in the R duenas radiata. * C/w physical therapy given recommendation for [facility]. Patient does not have insurance to make him eligible for [facility]. * Continues to need rolling walker regarding gait; therefore not eligible for detention 3) Hypertension Assessment/Plan * Patient has not prior history of noncompliance. * Imdur 20mg PO daily * Lisinopril 10mg PO QDaily * Amlodipine 10mg PO QDaily * d/c Chlorthalidone 25mg PO daily * d/c Hydralazine decreased 25mg PO Q8H 04/21/18 * Secondary HTN workup: * Renal artery duplex 04/05/2018: RIGHT: Findings suggestive of hemodynamically significant stenosis of the right renal artery, proximal segment. LEFT: No definite hemodynamically significant stenosis involving the renal arteries as visualized. * Plasma metanephrines: f/u * Aldosterone/Plasma renin activity: f/u 4) Lower extremity swelling (Resolved) * No evidence of cellulitis, lower extremities show blanchable erythema * Completed IV abx to cover for cellulitis and pneumonia * Patient's case consulted with podiatry during hospitalization. * Foot Xray (04/03): Degenerative changes of the forefoot. No acute fractures, subluxations. B/l hammertoe deformities are identified diffusely. Severe hallux valgus deformity noted. Large plantar calcaneal spurs b/l. 5) Atelectasis; possible pneumonia * Patient has completed IV abx to cover for pnuemonia * Legionella, s. pneumonia, influenza: Negative, Mycoplasma Ig.19 (normal: < 0.9), Mycoplasma IgM: negative * CXR (04/04): Limited patchy atelectasis medial right base with remaining lung liu clear. Stable prominent cardiac silhouette. * CT chest (04/04): Small to medium size right-sided effusion and mild right basilar atelectasis. Small opacities are also present within the middle lobe possibly representing rounded atelectasis and/or infiltrates. There also appears to be some mild dependent atelectasis in the left lung base. Trace right-sided effusion. Minimal linear scarring changes left lingular region. Suspect mild underlying pulmonary venous congestive changes. There also appears to be a few scattered parenchymal calcifications likely representing granulomata within both lower lung liu as well. Cardiomegaly. * CXR PA/Lateral 04/09 - Mild bibasilar atelectasis and/or infiltrate changes seen in the right mid to lower lung field with suspected mild left basilar atelectais * Mucinex 600mg PO BID 6) Scabies (resolved) * Completed 2 doses of Permethrin during hospitalization * Contact precaution d/c' * Benadryl cream BID prn for itchiness; patient advised to stop scratching. Patient has poor nail hygiene * Vitamin A and D TOP BID for dry skin 7) HX of CHF with reserved EF: * Cardiology, Dr. Dobbs consulted * Continue current regimen for BP control - hydralazine 100 PO q8, norvasc 10 PO daily, lisinopril 40 PO daily, norvasc 10mg PO daily * No additional echo indicated on this admission as patient is not showing symptoms of heart failure * ProBNP: 29,300- increased from previous admissions * Previous Echo (08/2017): LV normal size, borderline LV hypertrophy, Systolic function borderline, mild septal hypokinesis, LVEF >50% * No beta jessica given side effect of bronchospasm * Crestor 5mg PO daily * Aspirin 81mg Po daily 8) COPD exacerbation, resolved: * Pulmonology, Dr. Lebron consulted * Atrovent INH Q6 PRN * Patient is stable, O2 % saturation: 95-100% on room air 9) JASWANT, resolved: * BUN/ Cr today 04/13: 40/0.8 * Nephrology, Dr. Lizarraga consulted * Avoid nephrotoxic agents (NSAIDS, phosphate enema) * Renal artery duplex - possible significant GLADIS - see above * Renal ultrasound (04/05): non-obstructive left nephrolithiasis. Otherwise normal ultrasound 10) Transaminitis * Patient is off statin since 05/03 * Hepatitis C Reactive AB positive * Pending genotyping and viral load for Hepatitis C * Patient reports he has not had treatment before * Patient does have tattoos on his body unclear when he has received them 11) Prophylaxis/diet: * DVT PPX: lovenox 40mg subqdaily * GI: Protonix 40mg IVP daily * HHD Disposition: patient is medically optimized. patient will need physical therapy given gait imbalance and deconditioning; he is able to walk only with rolling walker however he is without insurance and cannot go to detention given his need for device. pending long term placement. Case and social work is on the case.
[2018-05-12] MEDS: Enoxaparin 40 mg Syringe SC SCH (10:55)
[2018-05-12] MEDS: Lactobacillus Acidophilus 500 MU Cap PO SCH ×2 (10:55→17:17)
[2018-05-13] MEDS: Ammonium Lactate 12% Lotion (225 g) EXT SCH ×2 (00:05→12:30)
--- NOTE | 2018-05-13 03:22 | CP.PCM.PN ---
<Eleuterio Iverson - Last Filed: 05/13/18 03:19> Subjective - Date & Time of Evaluation Date of Evaluation: 05/13/18 Time of Evaluation: 03:19 - Subjective Subjective: PGY1 Medicine progress note for hospitalist Pt was seen and examined at bedside. Pt is resting comfortably and has no complaints at this time. No acute events overnight. Denies fever, chills, chest pain, sob, abdominal pain, n/v/d, numbness or tingling. Objective - Vital Signs/Intake and Output Vital Signs (last 24 hours): Temp Pulse Resp BP Pulse Ox 98.1 F 86 20 119/73 95 05/13/18 00:00 05/13/18 00:00 05/13/18 00:00 05/13/18 00:00 05/13/18 00:00 Intake and Output: 05/12/18 05/13/18 18:59 06:59 Intake Total 350 250 Output Total 300 Balance 50 250 - Medications Medications: Current Medications Amlodipine Besylate (Norvasc) 10 mg PO DAILY [facility] Last Admin: 05/12/18 10:55 Dose: 10 mg Aspirin (Ecotrin) 81 mg PO DAILY [facility] Last Admin: 05/12/18 10:55 Dose: 81 mg Enoxaparin Sodium (Lovenox) 40 mg SC DAILY [facility] Last Admin: 05/12/18 10:55 Dose: 40 mg Isosorbide Mononitrate (Ismo) 20 mg PO DAILY [facility] Last Admin: 05/12/18 10:55 Dose: 20 mg Lactic Acid (Lac-Hydrin 12% Lotion (225 G)) 0 gm EXT Q12H [facility] Last Admin: 05/13/18 00:05 Dose: 1 applic Lactobacillus Acidophilus (Bacid Acidophilus) 1 cap PO BID [facility] Last Admin: 05/12/18 17:17 Dose: 1 cap Lisinopril (Zestril) 40 mg PO DAILY [facility] Last Admin: 05/12/18 10:55 Dose: 40 mg Rosuvastatin Calcium (Crestor) 5 mg PO HS [facility] Last Admin: 05/03/18 21:32 Dose: 5 mg - Labs Labs: 05/07/18 07:11 05/11/18 06:32 PT 16.4 SECONDS (9.7-12.2) H 04/06/18 07:35 INR 1.5 11/02/18 07:35 APTT 28 SECONDS (21-34) 04/06/18 07:35 - Constitutional Appears: Non-toxic, No Acute Distress - Head Exam Head Exam: NORMAL INSPECTION - Eye Exam Eye Exam: EOMI, Normal appearance - ENT Exam ENT Exam: Mucous Membranes Moist - Respiratory Exam Respiratory Exam: Clear to Ausculation Bilateral, NORMAL BREATHING PATTERN. absent: Rales, Rhonchi, Wheezes, Stridor - Cardiovascular Exam Cardiovascular Exam: REGULAR RHYTHM, +S1, +S2 - GI/Abdominal Exam GI & Abdominal Exam: Soft, Normal Bowel Sounds. absent: Firm, Guarding, Rigid, Tenderness, Rebound - Extremities Exam Extremities Exam: Normal Inspection. absent: Pedal Edema, Tenderness - Back Exam Back Exam: NORMAL INSPECTION - Neurological Exam Neurological Exam: Alert, Awake, Oriented x3 - Psychiatric Exam Psychiatric exam: Normal Affect, Normal Mood - Skin Skin Exam: Dry, Normal Color, Warm Assessment and Plan - Assessment and Plan (Free Text) Assessment: 58 year old male with PMHx of HTN, ETOH abuse, CHF, and CVA presented to the ED for foot pain and with altered mental status. Patient currently stable on medicine floor. No longer need daily labs, now weekly on Plan: JASWANT - initial admission, patient in JASWANT, resolved, now returned likely 2/2 dehydration - Nephrology consulted- Dr. Lizarraga- recs below - Avoid nephrotoxic agents (NSAIDS, phosphate enema) - will hold chlorthiladone 25 mg daily - Will hold fluids due to underly CHF, will encourage gentle PO hydration - Renal artery duplex - possible significant GLADIS - - Renal ultrasound (04/05): non-obstructive left nephrolithiasis. Otherwise normal ultrasound Left Foot Hammertoes and Heel Spurs - Pt ambulates with help of rolling walker. Tolerating PT. - No evidence of cellulitis, lower extremities show blanchable erythema - Podiatry, Dr. Gomez consulted- signed off; reconsult if necessary; no need for acute surgical intervention - Betadine soak leonidas interphalangel toe spaces w/ krillex wrap - Blood culture (04/04): No growth x 5 days - Lower extremities venous doppler: negative for DVT - Foot Xray (04/03): Degenerative changes of the forefoot. No acute fractures, subluxations. B/l hammertoe deformities are identified diffusely. Severe hallux valgus deformity noted. Large plantar calcaneal spurs b/l. - PT/ OT recommended for gait training Hepatitis C - hep c ab pos - f/u hepatitis viral load and genotyping in light of positive reactive hepatitis C - Abd US shows Hepatic Steatosis, no fibrosis, cholelithiasis, kidneys unremarkable - Hep C cut off ratio >30 confirmed positive Hypertension, uncontrolled - Patient not compliant with previous discharge meds. Given decreased mental ca pacity at baseline, it is unlikely he will be capable of taking his daily - medications without assistance. - Imdur 20mg PO daily - Lisinopril 10mg PO daily - Amlodipine 10mg PO daily - Hydralazine decreased from 75 mg PO TID to 50 mg BID. Continue to taper and monitor BP. - Chlorthalidone 25 mg PO daily added - Secondary HTN workup: - Renal artery duplex 04/05/2018: RIGHT: Findings suggestive of hemodynamically significant stenosis of the right renal artery, proximal segment. LEFT: No -definite hemodynamically significant stenosis involving the renal arteries as visualized. - Dr. Lizarraga has been following this patient and does not feel that this is significant GLADIS that would require intervention/stent. HTN to continue to be managed -medically. - Plasma metanephrines WNL - Aldosterone/Plasma renin activity: Aldosterone <1, Renin 12.25 - ASA 81 mg PO daily - Crestor 5 mg PO HS History of chronic alcohol abuse: - Monitor for signs of withdrawal - Serum alcohol level: < 10 - Upon review of prior records, patient is known to present with altered mental status 2/2 alcohol intoxication - UDS: Negative - Ativan taper finished on 04/09 - Continue Ativan 1mg IV Q6 PRN for withdrawal sx - Vitamin B12: 511m Folate levels: > 20 - Thiamine, folic acid, multivitamin - Ammonia level rechecked 04/11 - < 9 - CT head (04/04): Chronic microvascular ischemic changes. 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 B/l basal ganglia and R thalamic lacunar infarcts. Focal encephalomalacia in the R duenas radiata. Pleural Effusion / Possible Pulmonary Infiltrates - Pulmonology, Dr. Lebron consulted - Abx Course finished - (Doxycycline 100 mg IV Q12H, Ceftriaxone 1mg IV Q24H) - Atrovent INH Q6 PRN - Legionella, s. pneumonia, influenza: Negative - Mycoplasma Ig.19 (normal: < 0.9), Mycoplasma IgM: negative - CXR (04/04): Limited patchy atelectasis medial right base with remaining lung liu clear. Stable prominent cardiac silhouette. - CT chest (04/04): Small to medium size right-sided effusion and mild right basilar atelectasis. Small opacities are also present within the middle lobe possibly -representing rounded atelectasis and/or infiltrates. There also appears to be some mild dependent atelectasis in the left lung base. Trace r ight-sided effusion. - Minimal linear scarring changes left lingular region. Suspect mild underlying pulmonary venous congestive changes. There also appears to be a few scattered parenchymal calcifications likely representing granulomata within both lower lung liu as well. Cardiomegaly. - CXR PA/Lateral 04/09 - Mild bibasilar atelectasis and/or infiltrate changes seen in the right mid to lower lung field with suspected mild left basilar atelectasis HX of CHF with preserved EF - Cardiology, Dr. Dobbs consulted - Continue current regimen for BP control - 1500 mL/day fluid restricted diet - ProBNP: 29,300- increased from previous admissions - Previous Echo (08/2017): LV normal size, borderline LV hypertrophy, Systolic function borderline, mild septal hypokinesis, LVEF >50% - No additional echo indicated on this admission as patient is not showing symptoms of heart failure COPD exacerbation-resolved - Pulmonology, Dr. Lebron consulted - Duoneb Q6 PRN - Atrovent INH Q6 PRN - Patient is stable, O2 % saturation: 95-100% on room air Scabies - Resolved - Off contact precautions - Benadryl cream BID prn for pruritis - Vitamin A and D TOP BID Prophylaxis/diet: - DVT: Lovenox 40units qd, SCDs - GI: Protonix 40mg IVP daily - discontinued, no longer needed Dispo: Pending Medicaid approval. CM helping to secure penitentiary placement. <Dominique Richey V - Last Filed: 05/27/18 16:20> Objective - Vital Signs/Intake and Output Vital Signs (last 24 hours): Temp Pulse Resp BP Pulse Ox 97.5 F L 61 20 122/82 97 05/27/18 08:03 05/27/18 08:03 05/27/18 08:03 05/27/18 08:03 05/27/18 08:03 Intake and Output: 05/27/18 05/27/18 06:59 18:59 Intake Total 550 480 Balance 550 480 - Medications Medications: Current Medications Amlodipine Besylate (Norvasc) 10 mg PO DAILY [facility] Last Admin: 05/27/18 09:06 Dose: 10 mg Aspirin (Ecotrin) 81 mg PO DAILY [facility] Last Admin: 05/27/18 09:06 Dose: 81 mg Enoxaparin Sodium (Lovenox) 40 mg SC DAILY [facility] Last Admin: 05/27/18 09:06 Dose: 40 mg Folic Acid (Folic Acid) 1 mg PO DAILY [facility] Last Admin: 05/27/18 09:06 Dose: 1 mg Isosorbide Mononitrate (Ismo) 20 mg PO Q24H [facility] Last Admin: 05/27/18 10:48 Dose: 20 mg Lisinopril (Zestril) 40 mg PO Q24H [facility] Last Admin: 05/27/18 10:48 Dose: 40 mg Multivitamins (Hexavitamin) 1 tab PO DAILY [facility] Last Admin: 05/27/18 09:06 Dose: 1 tab Thiamine HCl (Vitamin B1 Tab) 100 mg PO DAILY [facility] Last Admin: 05/27/18 09:06 Dose: 100 mg Vitamin A (Vitamin A & D Oint Ud Foilpak) 1 ea TOP BID [facility] Last Admin: 05/27/18 09:05 Dose: 1 ea - Labs Labs: 05/21/18 06:32 05/24/18 07:17 PT 16.4 SECONDS (9.7-12.2) H 04/06/18 07:35 INR 1.5 04/06/18 07:35 APTT 28 SECONDS (21-34) 04/06/18 07:35 Attending/Attestation - Attestation I have personally seen and examined this patient.: Yes I have fully participated in the care of the patient.: Yes I have reviewed all pertinent clinical information, including history, physical exam and plan: Yes Notes (Text): This is late computer entry for 05/13/18. Patient seen, examined and case discussed with day time resident. I did speak with the patient he does have confirmed hepatitis C; he will need referral for treatment for hepatitis C as outpatient. Patient is pending placement for discharge planning. Assessment/Plan 1) History of chronic alcohol abuse Assessment/Plan * Patient has completed ativan taper. * Patient is not in the window for withdrawal * Serum alcohol level: < 10 * Upon review of prior records, patient is known to present with altered mental status 2/2 alcohol intoxication * UDS: Negative * Vitamin B12: 511 Folate levels: > 20 * c/w Thiamine, folic acid, multivitamin * Ammonia is low 2) Deconditioning Assessment/Plan * PT walked with patient 04/23 -patient needs continued PT to regain independent ambulation without assistance/RW. * Per case management, patient will not [facility] to a homeless [facility] without ability to ambulate independently without a walker * Social work attempting to secure penitentiary placement * CT head (04/04): Chronic microvascular ischemic changes. 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 B/l basal ganglia and R thalamic lacunar infarcts. Focal encephalomalacia in the R duenas radiata. * C/w physical therapy given recommendation for [facility]. Patient does not have insurance to make him eligible for [facility]. * Continues to need rolling walker regarding gait; therefore not eligible for [facility] 3) Hypertension Assessment/Plan * Patient has not prior history of noncompliance. * Imdur 20mg PO daily * Lisinopril 10mg PO QDaily * Amlodipine 10mg PO QDaily * d/c Chlorthalidone 25mg PO daily * d/c Hydralazine decreased 25mg PO Q8H 04/21/18 * Secondary HTN workup: * Renal artery duplex 04/05/2018: RIGHT: Findings suggestive of hemodyna mically significant stenosis of the right renal artery, proximal segment. LEFT: No definite hemodynamically significant stenosis involving the renal arteries as visualized. * Plasma metanephrines: f/u * Aldosterone/Plasma renin activity: f/u 4) Lower extremity swelling (Resolved) * No evidence of cellulitis, lower extremities show blanchable erythema * Completed IV abx to cover for cellulitis and pneumonia * Patient's case consulted with podiatry during hospitalization. * Foot Xray (04/03): Degenerative changes of the forefoot. No acute fractures, subluxations. B/l hammertoe deformities are identified diffusely. Severe hallux valgus deformity noted. Large plantar calcaneal spurs b/l. 5) Atelectasis; possible pneumonia * Patient has completed IV abx to cover for pnuemonia * Legionella, s. pneumonia, influenza: Negative, Mycoplasma Ig.19 (normal: < 0.9), Mycoplasma IgM: negative * CXR (04/04): Limited patchy atelectasis medial right base with remaining lung liu clear. Stable prominent cardiac silhouette. * CT chest (04/04): Small to medium size right-sided effusion and mild right basilar atelectasis. Small opacities are also present within the middle lobe possibly representing rounded atelectasis and/or infiltrates. There also appears to be some mild dependent atelectasis in the left lung base. Trace right-sided effusion. Minimal linear scarring changes left lingular region. Suspect mild underlying pulmonary venous congestive changes. There also appears to be a few scattered parenchymal calcifications likely representing granulomata within both lower lung liu as well. Cardiomegaly. * CXR PA/Lateral 04/09 - Mild bibasilar atelectasis and/or infiltrate changes seen in the right mid to lower lung field with suspected mild left basilar atelectais * Mucinex 600mg PO BID 6) Scabies (resolved) * Completed 2 doses of Permethrin during hospitalization * Contact precaution d/c' * Benadryl cream BID prn for itchiness; patient advised to stop scratching. Patient has poor nail hygiene * Vitamin A and D TOP BID for dry skin 7) HX of CHF with reserved EF: * Cardiology, Dr. Dobbs consulted * Continue current regimen for BP control - hydralazine 100 PO q8, norvasc 10 PO daily, lisinopril 40 PO daily, norvasc 10mg PO daily * No additional echo indicated on this admission as patient is not showing symptoms of heart failure * ProBNP: 29,300- increased from previous admissions * Previous Echo (08/2017): LV normal size, borderline LV hypertrophy, Systolic function borderline, mild septal hypokinesis, LVEF >50% * No beta jessica given side effect of bronchospasm * Crestor 5mg PO daily * Aspirin 81mg Po daily 8) COPD exacerbation, resolved: * Pulmonology, Dr. Lebron consulted * Atrovent INH Q6 PRN * Patient is stable, O2 % saturation: 95-100% on room air 9) JASWANT, resolved: * BUN/ Cr today 04/13: 40/0.8 * Nephrology, Dr. Lizarraga consulted * Avoid nephrotoxic agents (NSAIDS, phosphate enema) * Renal artery duplex - possible significant GLADIS - see above * Renal ultrasound (04/05): non-obstructive left nephrolithiasis. Otherwise normal ultrasound 10) Transaminitis * Patient is off statin since 05/03 * Hepatitis C Reactive AB positive * Pending genotyping and viral load for Hepatitis C * Patient reports he has not had treatment before * Patient does have tattoos on his body unclear when he has received them 11) Prophylaxis/diet: * DVT PPX: lovenox 40mg subqdaily * GI: Protonix 40mg IVP daily * HHD Disposition: patient is medically optimized. patient will need physical therapy given gait imbalance and deconditioning; he is able to walk only with rolling walker however he is without insurance and cannot go to f[facility] given his need for device. pending penitentiary placement. Case and social work is on the case.
[2018-05-13] MEDS: Lactobacillus Acidophilus 500 MU Cap PO SCH ×2 (10:45→18:15)
[2018-05-13] MEDS: Enoxaparin 40 mg Syringe SC SCH (10:45)
[2018-05-14] MEDS: Ammonium Lactate 12% Lotion (225 g) EXT SCH ×2 (02:47→14:03)
[2018-05-14 07:09] LABS: HEMOGLOBIN 12.1 g/dL (12.0-18.0); MEAN CELL VOLUME 88.8 fL (80.0-94.0); MEAN CORPUSCULAR HEMOGLOBIN 29.5 pg (27.0-31.0); MEAN CORPUSCULAR HGB CONC 33.2 g/dL (33.0-37.0); MEAN PLATELET VOLUME 9.3 fL (7.2-11.7); RBC 4.1 Mil/uL (4.40-5.90); RED CELL DISTRIBUTION WIDTH 15.5 % (11.5-14.5); WHITE BLOOD COUNT 4.7 K/uL (4.8-10.8)
[2018-05-14 07:44] LABS: ALB/GLOB RATIO 0.9 (1.0-2.1); ALBUMIN 3.6 g/dL (3.5-5.0); ALT/SGPT 193 U/L (21-72); AST/SGOT 120 U/L (17-59); BLOOD UREA NITROGEN 59 mg/dL (9-20); CALCIUM 9.4 mg/dl (8.6-10.4); GFR NON-AFRICAN AMERICAN 56
--- NOTE | 2018-05-14 07:49 | CP.PCM.PN ---
<Buzz Nash - Last Filed: 05/14/18 07:46> Subjective - Date & Time of Evaluation Date of Evaluation: 05/14/18 Time of Evaluation: 07:47 - Subjective Subjective: HOSPITALIST SERVICE Pt seen and examined at bedside, no acute events overnight as per nursing. Pt denies CP SOB FC NV, Pt still has limited cognition and memory but retains some insight. Pt is pending senior living placement. Objective - Vital Signs/Intake and Output Vital Signs (last 24 hours): Temp Pulse Resp BP Pulse Ox 98.2 F 65 20 120/80 97 05/14/18 07:43 05/14/18 07:43 05/14/18 07:43 05/14/18 07:43 05/14/18 07:43 Intake and Output: 05/14/18 05/14/18 06:59 18:59 Intake Total 650 Balance 650 - Medications Medications: Current Medications Amlodipine Besylate (Norvasc) 10 mg PO DAILY [facility] Last Admin: 05/13/18 10:45 Dose: 10 mg Aspirin (Ecotrin) 81 mg PO DAILY [facility] Last Admin: 05/13/18 10:45 Dose: 81 mg Enoxaparin Sodium (Lovenox) 40 mg SC DAILY [facility] Last Admin: 05/13/18 10:45 Dose: 40 mg Isosorbide Mononitrate (Ismo) 20 mg PO DAILY [facility] Last Admin: 05/13/18 10:45 Dose: 20 mg Lactic Acid (Lac-Hydrin 12% Lotion (225 G)) 0 gm EXT Q12H [facility] Last Admin: 05/14/18 02:47 Dose: Not Given Lactobacillus Acidophilus (Bacid Acidophilus) 1 cap PO BID [facility] Last Admin: 05/13/18 18:15 Dose: 1 cap Lisinopril (Zestril) 40 mg PO DAILY [facility] Last Admin: 05/13/18 10:45 Dose: 40 mg Rosuvastatin Calcium (Crestor) 5 mg PO HS [facility] Last Admin: 05/03/18 21:32 Dose: 5 mg - Labs Labs: 05/14/18 06:54 05/14/18 06:54 PT 16.4 SECONDS (9.7-12.2) H 04/06/18 07:35 INR 1.5 04/06/18 07:35 APTT 28 SECONDS (21-34) 04/06/18 07:35 - Additional Findings Additional findings: - Constitutional Appears: Non-toxic, No Acute Distress - Head Exam Head Exam: NORMAL INSPECTION - Eye Exam Eye Exam: EOMI, Normal appearance - ENT Exam ENT Exam: Mucous Membranes Moist - Respiratory Exam Respiratory Exam: Clear to Ausculation Bilateral, NORMAL BREATHING PATTERN. absent: Rales, Rhonchi, Wheezes, Stridor - Cardiovascular Exam Cardiovascular Exam: REGULAR RHYTHM, +S1, +S2 - GI/Abdominal Exam GI & Abdominal Exam: Soft, Normal Bowel Sounds. absent: Firm, Guarding, Rigid, Tenderness, Rebound - Extremities Exam Extremities Exam: Normal Inspection. absent: Pedal Edema, Tenderness - Back Exam Back Exam: NORMAL INSPECTION - Neurological Exam Neurological Exam: Alert, Awake, Oriented x3 - Psychiatric Exam Psychiatric exam: Normal Affect, Normal Mood - Skin Skin Exam: Dry, Normal Color, Warm Assessment and Plan - Assessment and Plan (Free Text) Assessment: 58 year old male with PMHx of HTN, ETOH abuse, CHF, and CVA presented to the ED for foot pain and with altered mental status. Patient currently stable on [facility] floor. No longer need daily labs, now weekly on Plan: JASWANT - initial admission, patient in JASWANT, resolved, now returned likely 2/2 dehydration - Nephrology consulted- Dr. Lizarraga- recs below - Avoid nephrotoxic agents (NSAIDS, phosphate enema) - will hold chlorthiladone 25 mg daily - Will hold fluids due to underly CHF, will encourage gentle PO hydration - Renal artery duplex - possible significant GLADIS - - Renal ultrasound (04/05): non-obstructive left nephrolithiasis. Otherwise normal ultrasound Left Foot Hammertoes and Heel Spurs - Pt ambulates with help of rolling walker. Tolerating PT. - No evidence of cellulitis, lower extremities show blanchable erythema - Podiatry, Dr. Gomez consulted- signed off; reconsult if necessary; no need for acute surgical intervention - Betadine soak leonidas interphalangel toe spaces w/ krillex wrap - Blood culture (04/04): No growth x 5 days - Lower extremities venous doppler: negative for DVT - Foot Xray (04/03): Degenerative changes of the forefoot. No acute fractures, subluxations. B/l hammertoe deformities are identified diffusely. Severe hallux valgus deformity noted. Large plantar calcaneal spurs b/l. - PT/ OT recommended for gait training Hepatitis C - hep c ab pos - f/u hepatitis viral load and genotyping in light of positive reactive hepatitis C - Abd US shows Hepatic Steatosis, no fibrosis, cholelithiasis, kidneys unrem arkable - Hep C cut off ratio >30 confirmed positive Hypertension, uncontrolled - Patient not compliant with previous discharge meds. Given decreased mental capacity at baseline, it is unlikely he will be capable of taking his daily - medications without assistance. - Imdur 20mg PO daily - Lisinopril 10mg PO daily - Amlodipine 10mg PO daily - Hydralazine decreased from 75 mg PO TID to 50 mg BID. Continue to taper and monitor BP. - Chlorthalidone 25 mg PO daily added - Secondary HTN workup: - Renal artery duplex 04/05/2018: RIGHT: Findings suggestive of hemodynamically significant stenosis of the right renal artery, proximal segment. LEFT: No - definite hemodynamically significant stenosis involving the renal arteries as visualized. - Dr. Lizarraga has been following this patient and does not feel that this is significant GLADIS that would require intervention/stent. HTN to continue to be managed -medically. - Plasma metanephrines WNL - Aldosterone/Plasma renin activity: Aldosterone <1, Renin 12.25 - ASA 81 mg PO daily - Crestor 5 mg PO HS History of chronic alcohol abuse: - Monitor for signs of withdrawal - Serum alcohol level: < 10 - Upon review of prior records, patient is known to present with altered mental status 2/2 alcohol intoxication - UDS: Negative - Ativan taper finished on 04/09 - Continue Ativan 1mg IV Q6 PRN for withdrawal sx - Vitamin B12: 511m Folate levels: > 20 - Thiamine, folic acid, multivitamin - Ammonia level rechecked 04/11 - < 9 - CT head (04/04): Chronic microvascular ischemic changes. 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 B/l basal ganglia and R thalamic lacunar infarcts. Focal encephalomalacia in the R duenas radiata. Pleural Effusion / Possible Pulmonary Infiltrates - Pulmonology, Dr. Lebron consulted - Abx Course finished - (Doxycycline 100 mg IV Q12H, Ceftriaxone 1mg IV Q24H) - Atrovent INH Q6 PRN - Legionella, s. pneumonia, influenza: Negative - Mycoplasma Ig.19 (normal: < 0.9), Mycoplasma IgM: negative - CXR (04/04): Limited patchy atelectasis medial right base with remaining lung liu clear. Stable prominent cardiac silhouette. - CT chest (04/04): Small to medium size right-sided effusion and mild right basilar atelectasis. Small opacities are also present within the middle lobe possibly -representing rounded atelectasis and/or infiltrates. There also appears to be some mild dependent atelectasis in the left lung base. Trace right-sided effusion. - Minimal linear scarring changes left lingular region. Suspect mild underlying pulmonary venous congestive changes. There also appears to be a few scattered parenchymal calcifications likely representing granulomata within both lower lung liu as well. Cardiomegaly. - CXR PA/Lateral 04/09 - Mild bibasilar atelectasis and/or infiltrate changes seen in the right mid to lower lung field with suspected mild left basilar atelectasis HX of CHF with preserved EF - Cardiology, Dr. Dobbs consulted - Continue current regimen for BP control - 1500 mL/day fluid restricted diet - ProBNP: 29,300- increased from previous admissions - Previous Echo (08/2017): LV normal size, borderline LV hypertrophy, Systolic function borderline, mild septal hypokinesis, LVEF >50% - No additional echo indicated on this admission as patient is not showing symptoms of heart failure COPD exacerbation-resolved - Pulmonology, Dr. Lebron consulted - Duoneb Q6 PRN - Atrovent INH Q6 PRN - Patient is stable, O2 % saturation: 95-100% on room air Scabies - Resolved - Off contact precautions - Benadryl cream BID prn for pruritis - Vitamin A and D TOP BID Prophylaxis/diet: - DVT: Lovenox 40units qd, SCDs - GI: Protonix 40mg IVP daily - discontinued, no longer needed Dispo: Pending Medicaid/Medicare approval. CM helping to secure senior living placement. <Ryland Pearson - Last Filed: 05/20/18 19:20> Objective - Vital Signs/Intake and Output Vital Signs (last 24 hours): Temp Pulse Resp BP Pulse Ox 97.5 F L 90 20 101/62 98 05/20/18 16:00 05/20/18 16:00 05/20/18 16:00 05/20/18 16:00 05/20/18 16:00 Intake and Output: 05/20/18 05/21/18 18:59 06:59 Intake Total 360 Output Total 300 Balance 60 - Medications Medications: Current Medications Amlodipine Besylate (Norvasc) 10 mg PO DAILY [facility] Last Admin: 05/20/18 09:48 Dose: 10 mg Aspirin (Ecotrin) 81 mg PO DAILY [facility] Last Admin: 05/20/18 09:48 Dose: 81 mg Enoxaparin Sodium (Lovenox) 40 mg SC DAILY [facility] Last Admin: 05/20/18 09:47 Dose: 40 mg Folic Acid (Folic Acid) 1 mg PO DAILY [facility] Last Admin: 05/20/18 09:48 Dose: 1 mg Isosorbide Mononitrate (Ismo) 20 mg PO Q24H [facility] Last Admin: 05/20/18 13:23 Dose: 20 mg Lisinopril (Zestril) 40 mg PO Q24H [facility] Last Admin: 05/19/18 19:24 Dose: 40 mg Multivitamins (Hexavitamin) 1 tab PO DAILY [facility] Last Admin: 05/20/18 09:47 Dose: 1 tab Rosuvastatin Calcium (Crestor) 5 mg PO HS [facility] Last Admin: 05/03/18 21:32 Dose: 5 mg Thiamine HCl (Vitamin B1 Tab) 100 mg PO DAILY [facility] Last Admin: 05/20/18 09:48 Dose: 100 mg - Labs Labs: 05/14/18 06:54 05/17/18 06:34 PT 16.4 SECONDS (9.7-12.2) H 04/06/18 07:35 INR 1.5 04/06/18 07:35 APTT 28 SECONDS (21-34) 04/06/18 07:35 Attending/Attestation - Attestation I have personally seen and examined this patient.: Yes I have fully participated in the care of the patient.: Yes I have reviewed all pertinent clinical information, including history, physical exam and plan: Yes Notes (Text): 05/20/18 19:19 This is a late entry. Care of this patient was gone over in detail with resident Dr. Nash. Ryland Pearson D.O.
[2018-05-14] MEDS: Lactobacillus Acidophilus 500 MU Cap PO SCH ×2 (10:10→19:09)
[2018-05-15] MEDS: Ammonium Lactate 12% Lotion (225 g) EXT SCH ×2 (00:16→12:14)
--- NOTE | 2018-05-15 09:17 | CP.PCM.PN ---
<Buzz Nash - Last Filed: 05/15/18 14:24> Subjective - Date & Time of Evaluation Date of Evaluation: 05/15/18 Time of Evaluation: 09:16 - Subjective Subjective: HOSPITALIST SERVICE Pt seen and examined at bedside. Pt denies fever chills sob nausea vomiting. Pt able to recall name and place but has limited insight, Pt still with chronic memory deficits. As per nursing no acute events overnight endorsed. 12 point ROS reviewed and no additional findings. Objective - Vital Signs/Intake and Output Vital Signs (last 24 hours): Temp Pulse Resp BP Pulse Ox 98.2 F 91 H 20 133/90 98 05/15/18 07:00 05/15/18 07:00 05/15/18 07:00 05/15/18 07:00 05/15/18 07:00 Intake and Output: 05/15/18 05/15/18 06:59 18:59 Intake Total 800 Output Total 1050 Balance -250 - Medications Medications: Current Medications Amlodipine Besylate (Norvasc) 10 mg PO DAILY [facility] Last Admin: 05/14/18 10:10 Dose: 10 mg Aspirin (Ecotrin) 81 mg PO DAILY [facility] Last Admin: 05/14/18 10:10 Dose: 81 mg Isosorbide Mononitrate (Ismo) 20 mg PO DAILY [facility] Last Admin: 05/14/18 10:10 Dose: 20 mg Lactic Acid (Lac-Hydrin 12% Lotion (225 G)) 0 gm EXT Q12H [facility] Last Admin: 05/15/18 00:16 Dose: 1 applic Lactobacillus Acidophilus (Bacid Acidophilus) 1 cap PO BID [facility] Last Admin: 05/14/18 19:09 Dose: 1 cap Lisinopril (Zestril) 40 mg PO DAILY [facility] Last Admin: 05/14/18 10:10 Dose: 40 mg Rosuvastatin Calcium (Crestor) 5 mg PO HS [facility] Last Admin: 05/03/18 21:32 Dose: 5 mg - Labs Labs: 05/14/18 06:54 05/14/18 06:54 PT 16.4 SECONDS (9.7-12.2) H 04/06/18 07:35 INR 1.5 04/06/18 07:35 APTT 28 SECONDS (21-34) 04/06/18 07:35 - Additional Findings Additional findings: - Constitutional Appears: Non-toxic, No Acute Distress - Head Exam Head Exam: NORMAL INSPECTION - Eye Exam Eye Exam: EOMI, Normal appearance - ENT Exam ENT Exam: Mucous Membranes Moist - Respiratory Exam Respiratory Exam: Clear to Ausculation Bilateral, NORMAL BREATHING PATTERN. absent: Rales, Rhonchi, Wheezes, Stridor - Cardiovascular Exam Cardiovascular Exam: REGULAR RHYTHM, +S1, +S2 - GI/Abdominal Exam GI & Abdominal Exam: Soft, Normal Bowel Sounds. absent: Firm, Guarding, Rigid, Tenderness, Rebound - Extremities Exam Extremities Exam: Normal Inspection. absent: Pedal Edema, Tenderness - Back Exam Back Exam: NORMAL INSPECTION - Neurological Exam Neurological Exam: Alert, Awake, Oriented x3 - Psychiatric Exam Psychiatric exam: Normal Affect, Normal Mood - Skin Skin Exam: Dry, Normal Color, Warm Assessment and Plan - Assessment and Plan (Free Text) Assessment: 58 year old male with PMHx of HTN, ETOH abuse, CHF, and CVA presented to the ED for foot pain and with altered mental status. Patient currently stable on medicine floor. No longer need daily labs, now weekly on Mondays Plan: JASWANT - 05/14 BUN 59 Cr 1.3: stable values continue to monitor -initial admission, patient in JASWANT, resolved, now returned likely 2/2 dehydration - Nephrology consulted- Dr. Lizarraga- recs below - Avoid nephrotoxic agents (NSAIDS, phosphate enema) - will hold chlorthiladone 25 mg daily - Will hold fluids due to underly CHF, will encourage gentle PO hydration - Renal artery duplex - possible significant GLADIS - - Renal ultrasound (04/05): non-obstructive left nephrolithiasis. Otherwise normal ultrasound Left Foot Hammertoes and Heel Spurs - 05/15 Pt ambulating and working with PT, stable -Pt ambulates with help of rolling walker. Tolerating PT. - No evidence of cellulitis, lower extremities show blanchable erythema - Podiatry, Dr. Gomez consulted- signed off; reconsult if necessary; no need for acute surgical intervention - Betadine soak leonidas interphalangel toe spaces w/ krillex wrap - Blood culture (04/04): No growth x 5 days - Lower extremities venous doppler: negative for DVT - Foot Xray (04/03): Degenerative changes of the forefoot. No acute fractures, subluxations. B/l hammertoe deformities are identified diffusely. Severe hallux valgus deformity noted. Large plantar calcaneal spurs b/l. - PT/ OT recommended for gait training Hepatitis C - 05/15 Viral Load still pending, will f/u - hep c ab pos - f/u hepatitis viral load and genotyping in light of positive reactive hepatitis C: - Abd US shows Hepatic Steatosis, no fibrosis, cholelithiasis, kidneys unremarkable - Hep C cut off ratio >30 confirmed positive Hypertension - 05/15 Pt has Hx of uncontrolled HTN, curently controlled on this admission regimen - Patient not compliant with previous discharge meds. Given decreased mental capacity at baseline, it is unlikely he will be capable of taking his daily -medications without assistance. - Imdur 20mg PO daily - Lisinopril 10mg PO daily - Amlodipine 10mg PO daily - Hydralazine decreased from 75 mg PO TID to 50 mg BID. Continue to taper and monitor BP. - Chlorthalidone 25 mg PO daily added - Secondary HTN workup: - Renal artery duplex 04/05/2018: RIGHT: Findings suggestive of hemodynamically significant stenosis of the right renal artery, proximal segment. LEFT: No - definite hemodynamically significant stenosis involving the renal arteries as visualized. - Dr. Lizarraga has been following this patient and does not feel that this is significant GLADIS that would require intervention/stent. HTN to continue to be managed -medically. - Plasma metanephrines WNL - Aldosterone/Plasma renin activity: Aldosterone <1, Renin 12.25 - ASA 81 mg PO daily - Crestor 5 mg PO HS History of chronic alcohol abuse: - Monitor for signs of withdrawal - Serum alcohol level: < 10 - Upon review of prior records, patient is known to present with altered mental status 2/2 alcohol intoxication - UDS: Negative - Ativan taper finished on 04/09 - Continue Ativan 1mg IV Q6 PRN for withdrawal sx - Vitamin B12: 511m Folate levels: > 20 - Thiamine, folic acid, multivitamin - Ammonia level rechecked 04/11 - < 9 - CT head (04/04): Chronic microvascular ischemic changes. 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 B/l basal ganglia and R thalamic lacunar infarcts. Focal encephalomalacia in the R duenas radiata. HX of CHF with preserved EF - Cardiology, Dr. Dobbs consulted - Continue current regimen for BP control - 1500 mL/day fluid restricted diet - ProBNP: 29,300- increased from previous admissions - Previous Echo (08/2017): LV normal size, borderline LV hypertrophy, Systolic function borderline, mild septal hypokinesis, LVEF >50% - No additional echo indicated on this admission as patient is not showing symptoms of heart failure COPD exacerbation-resolved - Pulmonology, Dr. Lebron consulted - Duoneb Q6 PRN - Atrovent INH Q6 PRN - Patient is stable, O2 % saturation: 95-100% on room air Pleural Effusion / Possible Pulmonary Infiltrates (resolved) - Pulmonology, Dr. Lebron consulted - Abx Course finished - (Doxycycline 100 mg IV Q12H, Ceftriaxone 1mg IV Q24H) - Atrovent INH Q6 PRN - Legionella, s. pneumonia, influenza: Negative - Mycoplasma Ig.19 (normal: < 0.9), Mycoplasma IgM: negative - CXR (04/04): Limited patchy atelectasis medial right base with remaining lung liu clear. Stable prominent cardiac silhouette. - CT chest (04/04): Small to medium size right-sided effusion and mild right basilar atelectasis. Small opacities are also present within the middle lobe possibly -representing rounded atelectasis and/or infiltrates. There also appears to be some mild dependent atelectasis in the left lung base. Trace right-sided effusion. - Minimal linear scarring changes left lingular region. Suspect mild underlying pulmonary venous congestive changes. There also appears to be a few scattered parenchymal calcifications likely representing granulomata within both lower lung liu as well. Cardiomegaly. - CXR PA/Lateral 04/09 - Mild bibasilar atelectasis and/or infiltrate changes seen in the right mid to lower lung field with suspected mild left basilar atelectasis Scabies - Resolved - Off contact precautions - Benadryl cream BID prn for pruritis - Vitamin A and D TOP BID Prophylaxis/diet: - DVT: Lovenox 40units qd, SCDs - GI: Protonix 40mg IVP daily - discontinued, no longer needed Dispo: Pending Medicaid/Medicare approval. CM helping to secure detention placement <Ryland Pearson - Last Filed: 05/20/18 19:18> Objective - Vital Signs/Intake and Output Vital Signs (last 24 hours): Temp Pulse Resp BP Pulse Ox 97.5 F L 90 20 101/62 98 05/20/18 16:00 05/20/18 16:00 05/20/18 16:00 05/20/18 16:00 05/20/18 16:00 Intake and Output: 05/20/18 05/21/18 18:59 06:59 Intake Total 360 Output Total 300 Balance 60 - Medications Medications: Current Medications Amlodipine Besylate (Norvasc) 10 mg PO DAILY [facility] Last Admin: 05/20/18 09:48 Dose: 10 mg Aspirin (Ecotrin) 81 mg PO DAILY [facility] Last Admin: 05/20/18 09:48 Dose: 81 mg Enoxaparin Sodium (Lovenox) 40 mg SC DAILY [facility] Last Admin: 05/20/18 09:47 Dose: 40 mg Folic Acid (Folic Acid) 1 mg PO DAILY [facility] Last Admin: 05/20/18 09:48 Dose: 1 mg Isosorbide Mononitrate (Ismo) 20 mg PO Q24H [facility] Last Admin: 05/20/18 13:23 Dose: 20 mg Lisinopril (Zestril) 40 mg PO Q24H [facility] Last Admin: 05/19/18 19:24 Dose: 40 mg Multivitamins (Hexavitamin) 1 tab PO DAILY [facility] Last Admin: 05/20/18 09:47 Dose: 1 tab Rosuvastatin Calcium (Crestor) 5 mg PO HS [facility] Last Admin: 05/03/18 21:32 Dose: 5 mg Thiamine HCl (Vitamin B1 Tab) 100 mg PO DAILY [facility] Last Admin: 05/20/18 09:48 Dose: 100 mg - Labs Labs: 05/14/18 06:54 05/17/18 06:34 PT 16.4 SECONDS (9.7-12.2) H 04/06/18 07:35 INR 1.5 04/06/18 07:35 APTT 28 SECONDS (21-34) 04/06/18 07:35 Attending/Attestation - Attestation I have personally seen and examined this patient.: Yes I have fully participated in the care of the patient.: Yes I have reviewed all pertinent clinical information, including history, physical exam and plan: Yes
[2018-05-15] MEDS: Lactobacillus Acidophilus 500 MU Cap PO SCH ×2 (09:30→17:50)
[2018-05-16] MEDS: Ammonium Lactate 12% Lotion (225 g) EXT SCH (00:22)
--- NOTE | 2018-05-16 12:58 | CP.PCM.PN ---
<Buzz Nash - Last Filed: 05/16/18 12:54> Subjective - Date & Time of Evaluation Date of Evaluation: 05/16/18 Time of Evaluation: 12:54 - Subjective Subjective: HOSPITALIST SERVICE Pt seen and examined at bedside. Pt denies CP SOB FC NV, 12 Point ROS obtained and otherwise negative. Pt still limited in cognitive capacity, limited insight but answers questions appropriately Objective - Vital Signs/Intake and Output Vital Signs (last 24 hours): Temp Pulse Resp BP Pulse Ox 97.3 F L 70 20 133/81 98 05/16/18 08:00 05/16/18 08:00 05/16/18 08:00 05/16/18 08:00 05/16/18 08:00 Intake and Output: 05/16/18 05/16/18 06:59 18:59 Intake Total 600 Output Total 300 Balance 300 - Medications Medications: Current Medications Amlodipine Besylate (Norvasc) 10 mg PO DAILY [facility] Last Admin: 05/16/18 09:33 Dose: 10 mg Aspirin (Ecotrin) 81 mg PO DAILY [facility] Last Admin: 05/16/18 09:33 Dose: 81 mg Lisinopril (Zestril) 40 mg PO DAILY [facility] Last Admin: 05/16/18 09:33 Dose: 40 mg Rosuvastatin Calcium (Crestor) 5 mg PO HS [facility] Last Admin: 05/03/18 21:32 Dose: 5 mg - Labs Labs: 05/14/18 06:54 05/14/18 06:54 PT 16.4 SECONDS (9.7-12.2) H 04/06/18 07:35 INR 1.5 04/06/18 07:35 APTT 28 SECONDS (21-34) 04/06/18 07:35 - Additional Findings Additional findings: - Constitutional Appears: Non-toxic, No Acute Distress - Head Exam Head Exam: NORMAL INSPECTION - Eye Exam Eye Exam: EOMI, Normal appearance - ENT Exam ENT Exam: Mucous Membranes Moist - Respiratory Exam Respiratory Exam: Clear to Ausculation Bilateral, NORMAL BREATHING PATTERN. absent: Rales, Rhonchi, Wheezes, Stridor - Cardiovascular Exam Cardiovascular Exam: REGULAR RHYTHM, +S1, +S2 - GI/Abdominal Exam GI & Abdominal Exam: Soft, Normal Bowel Sounds. absent: Firm, Guarding, Rigid, Tenderness, Rebound - Extremities Exam Extremities Exam: Normal Inspection. absent: Pedal Edema, Tenderness - Back Exam Back Exam: NORMAL INSPECTION - Neurological Exam Neurological Exam: Alert, Awake, Oriented x3 - Psychiatric Exam Psychiatric exam: Normal Affect, Normal Mood - Skin Skin Exam: Dry, Normal Color, Warm, Nails appear overgrown Assessment and Plan - Assessment and Plan (Free Text) Assessment: 58 year old male with PMHx of HTN, ETOH abuse, CHF, and CVA presented to the ED for foot pain and with altered mental status. Patient currently stable on medicine floor. No longer need daily labs, now weekly on Mondays Plan: JASWANT - 05/14 BUN 59 Cr 1.3: stable values continue to monitor -initial admission, patient in JASWANT, resolved, now returned likely 2/2 dehydration - Nephrology consulted- Dr. Lizarraga- recs below - Avoid nephrotoxic agents (NSAIDS, phosphate enema) - will hold chlorthiladone 25 mg daily - Will hold fluids due to underly CHF, will encourage gentle PO hydration - Renal artery duplex - possible significant GLADIS - - Renal ultrasound (04/05): non-obstructive left nephrolithiasis. Otherwise normal ultrasound Left Foot Hammertoes and Heel Spurs - 05/16 Pt ambulating and working with PT, stable -Pt ambulates with help of rolling walker. Tolerating PT. - No evidence of cellulitis, lower extremities show blanchable erythema - Podiatry, Dr. Gomez consulted- signed off; reconsult if necessary; no need for acute surgical intervention - Betadine soak leonidas interphalangel toe spaces w/ krillex wrap - Blood culture (04/04): No growth x 5 days - Lower extremities venous doppler: negative for DVT - Foot Xray (04/03): Degenerative changes of the forefoot. No acute fractures, subluxations. B/l hammertoe deformities are identified diffusely. Severe hallux valgus deformity noted. Large plantar calcaneal spurs b/l. - PT/ OT recommended for gait training Hepatitis C - 05/16Viral Load still pending, will f/u - hep c ab pos - f/u hepatitis viral load and genotyping in light of positive reactive hepatitis C: - Abd US shows Hepatic Steatosis, no fibrosis, cholelithiasis, kidneys unremarkable - Hep C cut off ratio >30 confirmed positive Hypertension - 05/16 Pt has Hx of uncontrolled HTN, curently controlled on this admission regimen - Patient not compliant with previous discharge meds. Given decreased mental capacity at baseline, it is unlikely he will be capable of taking his daily - medications without assistance. - Imdur 20mg PO daily - Lisinopril 10mg PO daily - Amlodipine 10mg PO daily - Hydralazine decreased from 75 mg PO TID to 50 mg BID. Continue to taper and monitor BP. - Chlorthalidone 25 mg PO daily added - Secondary HTN workup: - Renal artery duplex 04/05/2018: RIGHT: Findings suggestive of hemodynamically significant stenosis of the right renal artery, proximal segment. LEFT: No - definite hemodynamically significant stenosis involving the renal arteries as visualized. - Dr. Lizarraga has been following this patient and does not feel that this is significant GLADIS that would require intervention/stent. HTN to continue to be managed -medically. - Plasma metanephrines WNL - Aldosterone/Plasma renin activity: Aldosterone <1, Renin 12.25 - ASA 81 mg PO daily - Crestor 5 mg PO HS History of chronic alcohol abuse: - Monitor for signs of withdrawal - Serum alcohol level: < 10 - Upon review of prior records, patient is known to present with altered mental status 2/2 alcohol intoxication - UDS: Negative - Ativan taper finished on 04/09 - Continue Ativan 1mg IV Q6 PRN for withdrawal sx - Vitamin B12: 511m Folate levels: > 20 - Thiamine, folic acid, multivitamin - Ammonia level rechecked 04/11 - < 9 - CT head (04/04): Chronic microvascular ischemic changes. 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 B/l basal ganglia and R thalamic lacunar infarcts. Focal encephalomalacia in the R duenas radiata. HX of CHF with preserved EF - Cardiology, Dr. Dobbs consulted - Continue current regimen for BP control - 1500 mL/day fluid restricted diet - ProBNP: 29,300- increased from previous admissions - Previous Echo (08/2017): LV normal size, borderline LV hypertrophy, Systolic function borderline, mild septal hypokinesis, LVEF >50% - No additional echo indicated on this admission as patient is not showing symptoms of heart failure COPD exacerbation-resolved - Pulmonology, Dr. Lebron consulted - Duoneb Q6 PRN - Atrovent INH Q6 PRN - Patient is stable, O2 % saturation: 95-100% on room air Pleural Effusion / Possible Pulmonary Infiltrates (resolved) - Pulmonology, Dr. Lebron consulted - Abx Course finished - (Doxycycline 100 mg IV Q12H, Ceftriaxone 1mg IV Q24H) - Atrovent INH Q6 PRN - Legionella, s. pneumonia, influenza: Negative - Mycoplasma Ig.19 (normal: < 0.9), Mycoplasma IgM: negative - CXR (04/04): Limited patchy atelectasis medial right base with remaining lung liu clear. Stable prominent cardiac silhouette. - CT chest (04/04): Small to medium size right-sided effusion and mild right basilar atelectasis. Small opacities are also present within the middle lobe possibly -representing rounded atelectasis and/or infiltrates. There also appears to be some mild dependent atelectasis in the left lung base. Trace right-sided effusion. - Minimal linear scarring changes left lingular region. [place] spect mild underlying pulmonary venous congestive changes. There also appears to be a few scattered parenchymal calcifications likely representing granulomata within both lower lung liu as well. Cardiomegaly. - CXR PA/Lateral 04/09 - Mild bibasilar atelectasis and/or infiltrate changes seen in the right mid to lower lung field with suspected mild left basilar atelectasis Scabies - Resolved - Off contact precautions - Benadryl cream BID prn for pruritis - Vitamin A and D TOP BID Prophylaxis/diet: - DVT: Lovenox 40units qd, SCDs - GI: Protonix 40mg IVP daily - discontinued, no longer needed Dispo: Pending Medicaid/Medicare approval. CM helping to secure snf placement <Ryland Pearson - Last Filed: 05/20/18 19:18> Objective - Vital Signs/Intake and Output Vital Signs (last 24 hours): Temp Pulse Resp BP Pulse Ox 97.5 F L 90 20 101/62 98 05/20/18 16:00 18 16:00 05/20/18 16:00 05/20/18 16:00 05/20/18 16:00 Intake and Output: 05/20/18 05/21/18 18:59 06:59 Intake Total 360 Output Total 300 Balance 60 - Medications Medications: Current Medications Amlodipine Besylate (Norvasc) 10 mg PO DAILY [facility] Last Admin: 05/20/18 09:48 Dose: 10 mg Aspirin (Ecotrin) 81 mg PO DAILY [facility] Last Admin: 05/20/18 09:48 Dose: 81 mg Enoxaparin Sodium (Lovenox) 40 mg SC DAILY [facility] Last Admin: 05/20/18 09:47 Dose: 40 mg Folic Acid (Folic Acid) 1 mg PO DAILY [facility] Last Admin: 05/20/18 09:48 Dose: 1 mg Isosorbide Mononitrate (Ismo) 20 mg PO Q24H [facility] Last Admin: 05/20/18 13:23 Dose: 20 mg Lisinopril (Zestril) 40 mg PO Q24H [facility] Last Admin: 05/19/18 19:24 Dose: 40 mg Multivitamins (Hexavitamin) 1 tab PO DAILY [facility] Last Admin: 05/20/18 09:47 Dose: 1 tab Rosuvastatin Calcium (Crestor) 5 mg PO HS [facility] Last Admin: 05/03/18 21:32 Dose: 5 mg Thiamine HCl (Vitamin B1 Tab) 100 mg PO DAILY [facility] Last Admin: 05/20/18 09:48 Dose: 100 mg - Labs Labs: 05/14/18 06:54 05/17/18 06:34 PT 16.4 SECONDS (9.7-12.2) H 04/06/18 07:35 INR 1.5 04/06/18 07:35 APTT 28 SECONDS (21-34) 04/06/18 07:35 Attending/Attestation - Attestation I have personally seen and examined this patient.: Yes I have fully participated in the care of the patient.: Yes I have reviewed all pertinent clinical information, including history, physical exam and plan: Yes Notes (Text): 05/20/18 19:18 This is a late entry. Care of this patient was gone over in detail with resident Dr. Nash. Ryland Pearson D.O.
[2018-05-17 07:31] LABS: ALBUMIN 3.5 g/dL (3.5-5.0); ALT/SGPT 197 U/L (21-72); AST/SGOT 111 U/L (17-59); BLOOD UREA NITROGEN 60 mg/dL (9-20); CALCIUM 9.3 mg/dl (8.6-10.4); GFR NON-AFRICAN AMERICAN > 60
--- NOTE | 2018-05-17 11:44 | CP.PCM.PN ---
<Buzz Nash - Last Filed: 05/17/18 17:03> Subjective - Date & Time of Evaluation Date of Evaluation: 05/17/18 Time of Evaluation: 11:43 - Subjective Subjective: HOSPITALIST SERVICE Pt seen and examined and seen at [facility], denies any acute events overnight, 12 point ROS unremarkable. Still limited in cognition Objective - Vital Signs/Intake and Output Vital Signs (last 24 hours): Temp Pulse Resp BP Pulse Ox 97.8 F 74 20 125/88 96 05/17/18 08:00 05/17/18 08:00 05/17/18 08:00 05/17/18 08:00 05/17/18 08:00 Intake and Output: 05/17/18 05/17/18 06:59 18:59 Intake Total 450 Output Total 850 Balance -400 - Medications Medications: Current Medications Amlodipine Besylate (Norvasc) 10 mg PO DAILY [facility] Last Admin: 05/17/18 09:13 Dose: 10 mg Aspirin (Ecotrin) 81 mg PO DAILY [facility] Last Admin: 05/17/18 09:12 Dose: 81 mg Lisinopril (Zestril) 40 mg PO DAILY [facility] Last Admin: 05/17/18 09:13 Dose: 40 mg Rosuvastatin Calcium (Crestor) 5 mg PO HS [facility] Last Admin: 05/03/18 21:32 Dose: 5 mg - Labs Labs: 05/14/18 06:54 05/17/18 06:34 PT 16.4 SECONDS (9.7-12.2) H 04/06/18 07:35 INR 1.5 04/06/18 07:35 APTT 28 SECONDS (21-34) 04/06/18 07:35 - Additional Findings Additional findings: - Constitutional Appears: Non-toxic, No Acute Distress - Head Exam Head Exam: NORMAL INSPECTION - Eye Exam Eye Exam: EOMI, Normal appearance - ENT Exam ENT Exam: Mucous Membranes Moist - Respiratory Exam Respiratory Exam: Clear to Ausculation Bilateral, NORMAL BREATHING PATTERN. absent: Rales, Rhonchi, Wheezes, Stridor - Cardiovascular Exam Cardiovascular Exam: REGULAR RHYTHM, +S1, +S2 - GI/Abdominal Exam GI & Abdominal Exam: Soft, Normal Bowel Sounds. absent: Firm, Guarding, Rigid, Tenderness, Rebound - Extremities Exam Extremities Exam: Normal Inspection. absent: Pedal Edema, Tenderness - Back Exam Back Exam: NORMAL INSPECTION - Neurological Exam Neurological Exam: Alert, Awake, Oriented x3 - Psychiatric Exam Psychiatric exam: Normal Affect, Normal Mood - Skin Skin Exam: Dry, Normal Color, Warm, Nails appear overgrown Assessment and Plan - Assessment and Plan (Free Text) Assessment: 58 year old male with PMHx of HTN, ETOH abuse, CHF, and CVA presented to the ED for foot pain and with altered mental status. Patient currently stable on medicine floor. No longer need daily labs, now weekly on Mondays Plan: JASWANT - 05/14 BUN 59 Cr 1.3: stable values continue to monitor -initial admission, patient in JASWANT, resolved, now returned likely 2/2 dehydration - Nephrology consulted- Dr. Lizarraga- recs below - Avoid nephrotoxic agents (NSAIDS, phosphate enema) - will hold chlorthiladone 25 mg daily - Will hold fluids due to underly CHF, will encourage gentle PO hydration - Renal artery duplex - possible significant GLADIS - - Renal ultrasound (04/05): non-obstructive left nephrolithiasis. Otherwise normal ultrasound Left Foot Hammertoes and Heel Spurs - 05/17 Pt ambulating and working with PT, stable -Pt ambulates with help of rolling walker. Tolerating PT. - No evidence of cellulitis, lower extremities show blanchable erythema - Podiatry, Dr. Gomez consulted- signed off; reconsult if necessary; no need for acute surgical intervention - Betadine soak leonidas interphalangel toe spaces w/ krillex wrap - Blood culture (04/04): No growth x 5 days - Lower extremities venous doppler: negative for DVT - Foot Xray (04/03): Degenerative changes of the forefoot. No acute fractures, subluxations. B/l hammertoe deformities are identified diffusely. Severe hallux valgus deformity noted. Large plantar calcaneal spurs b/l. - PT/ OT recommended for gait training Hepatitis C - 05/17 Viral Load still pending, will f/u - hep c ab pos - f/u hepatitis viral load and genotyping in light of positive reactive hepatitis C: - Abd US shows Hepatic Steatosis, no fibrosis, cholelithiasis, kidneys unr emarkable - Hep C cut off ratio >30 confirmed positive Hypertension - 05/17 Pt has Hx of uncontrolled HTN, curently controlled on this admission regimen - Patient not compliant with previous discharge meds. Given decreased mental capacity at baseline, it is unlikely he will be capable of taking his daily - medications without assistance. - Imdur 20mg PO daily - Lisinopril 10mg PO daily - Amlodipine 10mg PO daily - Hydralazine decreased from 75 mg PO TID to 50 mg BID. Continue to taper and monitor BP. - Chlorthalidone 25 mg PO daily added - Secondary HTN workup: - Renal artery duplex 04/05/2018: RIGHT: Findings suggestive of hemodynamically significant stenosis of the right renal artery, proximal segment. LEFT: No - definite hemodynamically significant stenosis involving the renal arteries as visualized. - Dr. Lizarraga has been following this patient and does not feel that this is significant GLADIS that would require intervention/stent. HTN to continue to be managed -medically. - Plasma metanephrines WNL - Aldosterone/Plasma renin activity: Aldosterone <1, Renin 12.25 - ASA 81 mg PO daily - Crestor 5 mg PO HS History of chronic alcohol abuse: - Monitor for signs of withdrawal - Serum alcohol level: < 10 - Upon review of prior records, patient is known to present with altered mental status 2/2 alcohol intoxication - UDS: Negative - Ativan taper finished on 04/09 - Continue Ativan 1mg IV Q6 PRN for withdrawal sx - Vitamin B12: 511m Folate levels: > 20 - Thiamine, folic acid, multivitamin - Ammonia level rechecked 04/11 - < 9 - CT head (04/04): Chronic microvascular ischemic changes. 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 B/l basal ganglia and R thalamic lacunar infarcts. Focal encephalomalacia in the R duenas radiata. HX of CHF with preserved EF - Cardiology, Dr. Dobbs consulted - Continue current regimen for BP control - 1500 mL/day fluid restricted diet - ProBNP: 29,300- increased from previous admissions - Previous Echo (08/2017): LV normal size, borderline LV hypertrophy, Systolic function borderline, mild septal hypokinesis, LVEF >50% - No additional echo indicated on this admission as patient is not showing symptoms of heart failure COPD exacerbation-resolved - Pulmonology, Dr. Lebron consulted - Duoneb Q6 PRN - Atrovent INH Q6 PRN - Patient is stable, O2 % saturation: 95-100% on room air Pleural Effusion / Possible Pulmonary Infiltrates (resolved) - Pulmonology, Dr. Lebron consulted - Abx Course finished - (Doxycycline 100 mg IV Q12H, Ceftriaxone 1mg IV Q24H) - Atrovent INH Q6 PRN - Legionella, s. pneumonia, influenza: Negative - Mycoplasma Ig.19 (normal: < 0.9), Mycoplasma IgM: negative - CXR (04/04): Limited patchy atelectasis medial right base with remaining lung liu clear. Stable prominent cardiac silhouette. - CT chest (04/04): Small to medium size right-sided effusion and mild right basilar atelectasis. Small opacities are also present within the middle lobe possibly -representing rounded atelectasis and/or infiltrates. There also appears to be some mild dependent atelectasis in the left lung base. Trace right-sided effusion. - Minimal linear scarring changes left lingular region. Suspect mild underlying pulmonary venous congestive changes. There also appears to be a few scattered parenchymal calcifications likely representing granulomata within both lower lung liu as well. Cardiomegaly. - CXR PA/Lateral 04/09 - Mild bibasilar atelectasis and/or infiltrate changes see n in the right mid to lower lung field with suspected mild left basilar atelectasis Scabies - Resolved - Off contact precautions - Benadryl cream BID prn for pruritis - Vitamin A and D TOP BID Prophylaxis/diet: - DVT: Lovenox 40units qd, SCDs - GI: Protonix 40mg IVP daily - discontinued, no longer needed Dispo: Pending Medicaid/Medicare approval. CM helping to secure senior care placement <Ryland Pearson - Last Filed: 05/20/18 19:17> Objective - Vital Signs/Intake and Output Vital Signs (last 24 hours): Temp Pulse Resp BP Pulse Ox 97.5 F L 90 20 101/62 98 05/20/18 16:00 05/20/18 16:00 05/20/18 16:00 05/20/18 16:00 05/20/18 16:00 Intake and Output: 05/20/18 05/21/18 18:59 06:59 Intake Total 360 Output Total 300 Balance 60 - Medications Medications: Current Medications Amlodipine Besylate (Norvasc) 10 mg PO DAILY [facility] Last Admin: 05/20/18 09:48 Dose: 10 mg Aspirin (Ecotrin) 81 mg PO DAILY [facility] Last Admin: 05/20/18 09:48 Dose: 81 mg Enoxaparin Sodium (Lovenox) 40 mg SC DAILY [facility] Last Admin: 05/20/18 09:47 Dose: 40 mg Folic Acid (Folic Acid) 1 mg PO DAILY [facility] Last Admin: 05/20/18 09:48 Dose: 1 mg Isosorbide Mononitrate (Ismo) 20 mg PO Q24H [facility] Last Admin: 05/20/18 13:23 Dose: 20 mg Lisinopril (Zestril) 40 mg PO Q24H [facility] Last Admin: 05/19/18 19:24 Dose: 40 mg Multivitamins (Hexavitamin) 1 tab PO DAILY [facility] Last Admin: 05/20/18 09:47 Dose: 1 tab Rosuvastatin Calcium (Crestor) 5 mg PO HS [facility] Last Admin: 05/03/18 21:32 Dose: 5 mg Thiamine HCl (Vitamin B1 Tab) 100 mg PO DAILY [facility] Last Admin: 05/20/18 09:48 Dose: 100 mg - Labs Labs: 05/14/18 06:54 05/17/18 06:34 PT 16.4 SECONDS (9.7-12.2) H 04/06/18 07:35 INR 1.5 04/06/18 07:35 APTT 28 SECONDS (21-34) 04/06/18 07:35 Attending/Attestation - Attestation I have personally seen and examined this patient.: Yes I have fully participated in the care of the patient.: Yes I have reviewed all pertinent clinical information, including history, physical exam and plan: Yes Notes (Text): 05/20/18 19:17 This is a late entry. Care of this patient was gone over in detail with resident Dr. Nash. Ryland Pearson D.O.
--- NOTE | 2018-05-18 12:59 | CP.PCM.PN ---
<Buzz Nash - Last Filed: 05/18/18 17:45> Subjective - Date & Time of Evaluation Date of Evaluation: 05/18/18 Time of Evaluation: 12:49 - Subjective Subjective: HOSPITALIST SERVICE Pt seen and examined at bedside, pt denies any acute events overnight, pt eating foods and passing normal bowel movements. 12 point ROS unremarkable, denies cp sob fc nv, Still baseline cognitive deficts evident Objective - Vital Signs/Intake and Output Vital Signs (last 24 hours): Temp Pulse Resp BP Pulse Ox 97.5 F L 62 20 114/78 99 05/18/18 07:20 05/18/18 07:20 05/18/18 07:20 05/18/18 07:20 05/18/18 07:20 Intake and Output: 05/18/18 05/18/18 06:59 18:59 Intake Total 350 Balance 350 - Medications Medications: Current Medications Amlodipine Besylate (Norvasc) 10 mg PO DAILY COUNT [facility] Last Admin: 05/18/18 09:25 Dose: 10 mg Aspirin (Ecotrin) 81 mg PO DAILY COUNT [facility]CLUD[facility] Last Admin: 05/18/18 09:25 Dose: 81 mg Lisinopril (Zestril) 40 mg PO DAILY [facility] Last Admin: 05/18/18 09:25 Dose: 40 mg Rosuvastatin Calcium (Crestor) 5 mg PO HS COUNT [facility] Last Admin: 05/03/18 21:32 Dose: 5 mg - Labs Labs: 05/14/18 06:54 05/17/18 06:34 PT 16.4 SECONDS (9.7-12.2) H 04/06/18 07:35 INR 1.5 04/06/18 07:35 APTT 28 SECONDS (21-34) 04/06/18 07:35 - Additional Findings Additional findings: - Constitutional Appears: Non-toxic, No Acute Distress - Head Exam Head Exam: NORMAL INSPECTION - Eye Exam Eye Exam: EOMI, Normal appearance - ENT Exam ENT Exam: Mucous Membranes Moist - Respiratory Exam Respiratory Exam: Clear to Ausculation Bilateral, NORMAL BREATHING PATTERN. absent: Rales, Rhonchi, Wheezes, Stridor - Cardiovascular Exam Cardiovascular Exam: REGULAR RHYTHM, +S1, +S2 - GI/Abdominal Exam GI & Abdominal Exam: Soft, Normal Bowel Sounds. absent: Firm, Guarding, Rigid, Tenderness, Rebound - Extremities Exam Extremities Exam: Normal Inspection. absent: Pedal Edema, Tenderness - Back Exam Back Exam: NORMAL INSPECTION - Neurological Exam Neurological Exam: Alert, Awake, Oriented x3 - Psychiatric Exam Psychiatric exam: Normal Affect, Normal Mood - Skin Skin Exam: Dry, Normal Color, Warm, Nails appear overgrown Assessment and Plan - Assessment and Plan (Free Text) Assessment: 58 year old male with PMHx of HTN, ETOH abuse, CHF, and CVA presented to the ED for foot pain and with altered mental status. Patient currently stable on medicine floor. No longer need daily labs, now weekly on Mondays Plan: JASWANT - 05/14 BUN 59 Cr 1.3: stable values continue to monitor -initial admission, patient in JASWANT, resolved, now returned likely 2/2 dehydration - Nephrology consulted- Dr. Lizarraga- recs below - Avoid nephrotoxic agents (NSAIDS, phosphate enema) - will hold chlorthiladone 25 mg daily - Will hold fluids due to underly CHF, will encourage gentle PO hydration - Renal artery duplex - possible significant GLADIS - - Renal ultrasound (04/05): non-obstructive left nephrolithiasis. Otherwise normal ultrasound Left Foot Hammertoes and Heel Spurs - 05/18 Pt ambulating and working with PT, stable -Pt ambulates with help of rolling walker. Tolerating PT. - No evidence of cellulitis, lower extremities show blanchable erythema - Podiatry, Dr. Gomez consulted- signed off; reconsult if necessary; no need for acute surgical intervention - Betadine soak leonidas interphalangel toe spaces w/ krillex wrap - Blood culture (04/04): No growth x 5 days - Lower extremities venous doppler: negative for DVT - Foot Xray (04/03): Degenerative changes of the forefoot. No acute fractures, subluxations. B/l hammertoe deformities are identified diffusely. Severe hallux valgus deformity noted. Large plantar calcaneal spurs b/l. - PT/ OT recommended for gait training Hepatitis C - 05/18 Viral Load still pending, will f/u - hep c ab pos - f/u hepatitis viral load and genotyping in light of positive reactive hepatitis C: - Abd US shows Hepatic Steatosis, no fibrosis, cholelithiasis, kidneys unremarkable - Hep C cut off ratio >30 confirmed positive Hypertension - 05/18 Pt has Hx of uncontrolled HTN, curently controlled on this admission regimen - Patient not compliant with previous discharge meds. Given decreased mental capacity at baseline, it is unlikely he will be capable of taking his daily - medications without assistance. - Imdur 20mg PO daily - Lisinopril 10mg PO daily - Amlodipine 10mg PO daily - Hydralazine decreased from 75 mg PO TID to 50 mg BID. Continue to taper and monitor BP. - Chlorthalidone 25 mg PO daily added - Secondary HTN workup: - Renal artery duplex 04/05/2018: RIGHT: Findings suggestive of hemodynamically significant stenosis of the right renal artery, proximal segment. LEFT: No - definite hemodynamically significant stenosis involving the renal arteries as v isualized. - Dr. Lizarraga has been following this patient and does not feel that this is significant GLADIS that would require intervention/stent. HTN to continue to be managed -medically. - Plasma metanephrines WNL - Aldosterone/Plasma renin activity: Aldosterone <1, Renin 12.25 - ASA 81 mg PO daily - Crestor 5 mg PO HS History of chronic alcohol abuse: - Monitor for signs of withdrawal - Serum alcohol level: < 10 - Upon review of prior records, patient is known to present with altered mental status 2/2 alcohol intoxication - UDS: Negative - Ativan taper finished on 04/09 - Continue Ativan 1mg IV Q6 PRN for withdrawal sx - Vitamin B12: 511m Folate levels: > 20 - Thiamine, folic acid, multivitamin - Ammonia level rechecked 04/11 - < 9 - CT head (04/04): Chronic microvascular ischemic changes. 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 B/l basal ganglia and R thalamic lacunar infarcts. Focal encephalomalacia in the R duenas radiata. HX of CHF with preserved EF - Cardiology, Dr. Dobbs consulted - Continue current regimen for BP control - 1500 mL/day fluid restricted diet - ProBNP: 29,300- increased from previous admissions - Previous Echo (08/2017): LV normal size, borderline LV hypertrophy, Systolic function borderline, mild septal hypokinesis, LVEF >50% - No additional echo indicated on this admission as patient is not showing sy mptoms of heart failure COPD exacerbation-resolved - Pulmonology, Dr. Lebron consulted - Duoneb Q6 PRN - Atrovent INH Q6 PRN - Patient is stable, O2 % saturation: 95-100% on room air Pleural Effusion / Possible Pulmonary Infiltrates (resolved) - Pulmonology, Dr. Lebron consulted - Abx Course finished - (Doxycycline 100 mg IV Q12H, Ceftriaxone 1mg IV Q24H) - Atrovent INH Q6 PRN - Legionella, s. pneumonia, influenza: Negative - Mycoplasma Ig.19 (normal: < 0.9), Mycoplasma IgM: negative - CXR (04/04): Limited patchy atelectasis medial right base with remaining lung liu clear. Stable prominent cardiac silhouette. - CT chest (04/04): Small to medium size right-sided effusion and mild right basilar atelectasis. Small opacities are also present within the middle lobe possibly -representing rounded atelectasis and/or infiltrates. There also appears to be some mild dependent atelectasis in the left lung base. Trace right-sided effusion. - Minimal linear scarring changes left lingular region. Suspect mild underlying pulmonary venous congestive changes. There also appears to be a few scattered parenchymal calcifications likely representing granulomata within both lower lung liu as well. Cardiomegaly. - CXR PA/Lateral 04/09 - Mild bibasilar atelectasis and/or infiltrate changes seen in the right mid to lower lung field with suspected mild left basilar atelectasis Scabies - Resolved - Off contact precautions - Benadryl cream BID prn for pruritis - Vitamin A and D TOP BID Prophylaxis/diet: - DVT: Lovenox 40units qd, SCDs - GI: Protonix 40mg IVP daily - discontinued, no longer needed Dispo: Pending Medicaid/Medicare approval. CM helping to secure [place] [facility] placement, NURSING INFORMED TO SPONGE BAT[facility] DAILY, TRIM NAILS <Ryland Pearson - Last Filed: 05/20/18 19:17> Objective - Vital Signs/Intake and Output Vital Signs (last 24 hours): Temp Pulse Resp BP Pulse Ox 97.5 F L 90 20 101/62 98 05/20/18 16:00 05/20/18 16:00 05/20/18 16:00 05/20/18 16:00 05/20/18 16:00 Intake and Output: 05/20/18 05/21/18 18:59 06:59 Intake Total 360 Output Total 300 Balance 60 - Medications Medications: Current Medications Amlodipine Besylate (Norvasc) 10 mg PO DAILY COUNT [facility]CLUDES [facility] Last Admin: 05/20/18 09:48 Dose: 10 mg Aspirin (Ecotrin) 81 mg PO DAILY COUNT [facility]CLUDES [facility] Last Admin: 05/20/18 09:48 Dose: 81 mg Enoxaparin Sodium (Lovenox) 40 mg SC DAILY COUNT [facility]CLUD[facility] Last Admin: 05/20/18 09:47 Dose: 40 mg Folic Acid (Folic Acid) 1 mg PO DAILY COUNT [facility]CLUDES [facility] Last Admin: 05/20/18 09:48 Dose: 1 mg Isosorbide Mononitrate (Ismo) 20 mg PO Q24H COUNT [facility]CLUD[facility] Last Admin: 05/20/18 13:23 Dose: 20 mg Lisinopril (Zestril) 40 mg PO Q24H COUNT [facility] Last Admin: 05/19/18 19:24 Dose: 40 mg Multivitamins (Hexavitamin) 1 tab PO DAILY COUNT [facility]CLUDES [facility] Last Admin: 05/20/18 09:47 Dose: 1 tab Rosuvastatin Calcium (Crestor) 5 mg PO HS COUNT [facility]CLUDES [facility] Last Admin: 05/03/18 21:32 Dose: 5 mg Thiamine HCl (Vitamin B1 Tab) 100 mg PO DAILY COUNT [facility]CLUD[facility] Last Admin: 05/20/18 09:48 Dose: 100 mg - Labs Labs: 05/14/18 06:54 05/17/18 06:34 PT 16.4 SECONDS (9.7-12.2) H 04/06/18 07:35 INR 1.5 04/06/18 07:35 APTT 28 SECONDS (21-34) 04/06/18 07:35 Attending/Attestation - Attestation I have personally seen and examined this patient.: Yes I have fully participated in the care of the patient.: Yes I have reviewed all pertinent clinical information, including history, physical exam and plan: Yes Notes (Text): 05/20/18 19:17 This is a late entry. Care of this patient was gone over in detail with resident Dr. Nash. Ryland Pearson D.O.
--- NOTE | 2018-05-19 09:55 | CP.PCM.PCO ---
Physician Communication Note - Physician Communication Note Physician Communication Note: Please see above
[2018-05-19] MEDS: Multiple Vitamins Tab PO SCH (09:59)
[2018-05-19] MEDS: Enoxaparin 40 mg Syringe SC SCH (09:59)
[2018-05-20] MEDS: Multiple Vitamins Tab PO SCH (09:47)
[2018-05-20] MEDS: Enoxaparin 40 mg Syringe SC SCH (09:47)
--- NOTE | 2018-05-20 11:50 | CP.PCM.PCO ---
Physician Communication Note - Physician Communication Note Physician Communication Note: Please see above
[2018-05-21 06:40] LABS: HEMOGLOBIN 11.6 g/dL (12.0-18.0); MEAN CELL VOLUME 89.1 fL (80.0-94.0); MEAN CORPUSCULAR HEMOGLOBIN 29.1 pg (27.0-31.0); MEAN CORPUSCULAR HGB CONC 32.7 g/dL (33.0-37.0); MEAN PLATELET VOLUME 9.5 fL (7.2-11.7); RBC 3.99 Mil/uL (4.40-5.90); RED CELL DISTRIBUTION WIDTH 15.9 % (11.5-14.5); WHITE BLOOD COUNT 4.8 K/uL (4.8-10.8)
[2018-05-21 06:56] LABS: ALBUMIN 3.7 g/dL (3.5-5.0); ALT/SGPT 212 U/L (21-72); AST/SGOT 123 U/L (17-59); BLOOD UREA NITROGEN 68 mg/dL (9-20); CALCIUM 9.2 mg/dl (8.6-10.4); GFR NON-AFRICAN AMERICAN > 60
[2018-05-21] MEDS: Multiple Vitamins Tab PO SCH (09:57)
[2018-05-21] MEDS: Enoxaparin 40 mg Syringe SC SCH (09:57)
--- NOTE | 2018-05-21 12:23 | CP.PCM.PN ---
Subjective - Date & Time of Evaluation Date of Evaluation: 05/21/18 Time of Evaluation: 12:25 - Subjective Subjective: PGY-[address] Holland Patient seen and examined at bedside. No acute events overnight per nursing. Patient tolerating diet. Patient continues to work with PT using RW for ambulation. Otherwise patient denies headache, chest pain, SOB, dizziness, nausea, vomiting. Objective - Vital Signs/Intake and Output Vital Signs (last 24 hours): Temp Pulse Resp BP Pulse Ox 98 F 88 20 117/75 99 05/21/18 08:09 05/21/18 08:09 05/21/18 08:09 05/21/18 08:09 05/21/18 08:09 Intake and Output: 05/21/18 05/21/18 06:59 18:59 Intake Total 600 200 Output Total 600 300 Balance 0 -100 - Medications Medications: Current Medications Amlodipine Besylate (Norvasc) 10 mg PO DAILY [facility] Last Admin: 05/21/18 09:57 Dose: 10 mg Aspirin (Ecotrin) 81 mg PO DAILY [facility] Last Admin: 05/21/18 09:57 Dose: 81 mg Enoxaparin Sodium (Lovenox) 40 mg SC DAILY [facility] Last Admin: 05/21/18 09:57 Dose: 40 mg Folic Acid (Folic Acid) 1 mg PO DAILY [facility] Last Admin: 05/21/18 09:57 Dose: 1 mg Isosorbide Mononitrate (Ismo) 20 mg PO Q24H [facility] Last Admin: 05/20/18 13:23 Dose: 20 mg Lisinopril (Zestril) 40 mg PO Q24H [facility] Last Admin: 05/20/18 21:14 Dose: 40 mg Multivitamins (Hexavitamin) 1 tab PO DAILY [facility] Last Admin: 05/21/18 09:57 Dose: 1 tab Rosuvastatin Calcium (Crestor) 5 mg PO HS [facility] Last Admin: 05/03/18 21:32 Dose: 5 mg Thiamine HCl (Vitamin B1 Tab) 100 mg PO DAILY [facility] Last Admin: 05/21/18 09:57 Dose: 100 mg - Labs Labs: 05/21/18 06:32 05/21/18 06:32 PT 16.4 SECONDS (9.7-12.2) H 04/06/18 07:35 INR 1.5 04/06/18 07:35 APTT 28 SECONDS (21-34) 04/06/18 07:35 - Constitutional Appears: No Acute Distress, Chronically Ill - Head Exam Head Exam: ATRAUMATIC, NORMAL INSPECTION - Eye Exam Eye Exam: EOMI - ENT Exam ENT Exam: Mucous Membranes Moist - Respiratory Exam Respiratory Exam: Clear to Ausculation Bilateral, NORMAL BREATHING PATTERN. absent: Rales, Rhonchi - Cardiovascular Exam Cardiovascular Exam: REGULAR RHYTHM, +S1, +S2 - GI/Abdominal Exam GI & Abdominal Exam: Soft, Normal Bowel Sounds. absent: Tenderness - Extremities Exam Extremities Exam: absent: Pedal Edema, Tenderness - Neurological Exam Neurological Exam: Alert, Awake. absent: Oriented x3 (Oriented to self only - when asked location he [facility]", but did not know which hospital) - Psychiatric Exam Psychiatric exam: Flat Affect, Normal Mood - Skin Skin Exam: Dry, Intact, Normal Color, Warm Assessment and Plan - Assessment and Plan (Free Text) Assessment: 58 year old male with PMHx of HTN, ETOH abuse, CHF, and CVA presented to the ED for foot pain and with altered mental status. Patient currently stable on medicine floor. No longer need daily labs, now weekly on Mondays Plan: Left Foot Hammertoes and Heel Spurs / Physical Deconditioning - 05/21 Pt ambulating and working with PT, stable -Pt ambulates with help of rolling walker. Tolerating PT. - No evidence of cellulitis, lower extremities show blanchable erythema - Podiatry, Dr. Gomez consulted- signed off; reconsult if necessary; no need for acute surgical intervention - Betadine soak leonidas interphalangel toe spaces w/ krillex wrap - Blood culture (04/04): No growth x 5 days - Lower extremities venous doppler: negative for DVT - Foot Xray (04/03): Degenerative changes of the forefoot. No acute fractures, subluxations. B/l hammertoe deformities are identified diffusely. Severe hallux valgus deformity noted. Large plantar calcaneal spurs b/l. - PT/ OT recommended for gait training. Continue agressive PT/OT. JASWANT - 05/21 BUN 68 Cr 1.2: stable values continue to monitor -initial admission, patient in JASWANT, resolved, now returned likely 2/2 dehydration - Nephrology consulted- Dr. Lizarraga- recs below - Avoid nephrotoxic agents (NSAIDS, phosphate enema) - Chlorthalidone held - Will hold fluids due to underly CHF, will encourage gentle PO hydration - Renal artery duplex - possible significant GLADIS - --Renal ultrasound (04/05): non-obstructive left nephrolithiasis. Otherwise normal ultrasound Hepatitis C - Viral Load still pending, will f/u - hep c AB positive - f/u hepatitis viral load and genotyping in light of positive reactive hepatitis C: - Abd US shows Hepatic Steatosis, no fibrosis, cholelithiasis, kidneys unremarkable - Hep C cut off ratio >30 confirmed positive Hypertension - Pt has Hx of uncontrolled HTN, curently controlled on this admission regimen - Patient not compliant with previous discharge meds. Given decreased mental capacity at baseline, it is unlikely he will be capable of taking his daily - medications without assistance. - Imdur 20mg PO daily - Lisinopril 10mg PO daily - Amlodipine 10mg PO daily - Hydralazine decreased from 75 mg PO TID to 50 mg BID. Continue to taper and monitor BP. - Chlorthalidone held - Secondary HTN workup: - Renal artery duplex 04/05/2018: RIGHT: Findings suggestive of hemodynamically significant stenosis of the right renal artery, proximal segment. LEFT: No - definite hemodynamically significant stenosis involving the renal arteries as visualized. - Dr. Lizarraga has been following this patient and does not feel that this is significant GLADIS that would require intervention/stent. HTN to continue to be managed -medically. - Plasma metanephrines WNL - Aldosterone/Plasma renin activity: Aldosterone <1, Renin 12.25 - ASA 81 mg PO daily - Crestor 5 mg PO HS History of chronic alcohol abuse: - No longer actively in withdrawal - Serum alcohol level: < 10 - Upon review of prior records, patient is known to present with altered mental status 2/2 alcohol intoxication - UDS: Negative - Ativan taper finished on 04/09 - Continue Ativan 1mg IV Q6 PRN for withdrawal sx - Vitamin B12: 511m Folate levels: > 20 - Thiamine, folic acid, multivitamin - Ammonia level rechecked 04/11 - < 9 - CT head (04/04): Chronic microvascular ischemic changes. 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 B/l basal ganglia and R thalamic lacunar infarcts. Focal encephalomalacia in the R duenas radiata. HX of CHF with preserved EF - Cardiology, Dr. Dobbs consulted - Continue current regimen for BP control - 1500 mL/day fluid restricted diet - ProBNP: 29,300- increased from previous admissions - Previous Echo (08/2017): LV normal size, borderline LV hypertrophy, Systolic function borderline, mild septal hypokinesis, LVEF >50% - No additional echo indicated on this admission as patient is not showing symptoms of heart failure COPD exacerbation-resolved - Pulmonology, Dr. Lebron consulted - Duoneb Q6 PRN - Atrovent INH Q6 PRN - Patient is stable, O2 % saturation: 95-100% on room air Pleural Effusion / Possible Pulmonary Infiltrates (resolved) - Pulmonology, Dr. Lebron consulted - Abx Course finished - (Doxycycline 100 mg IV Q12H, Ceftriaxone 1mg IV Q24H) - Atrovent INH Q6 PRN - Legionella, s. pneumonia, influenza: Negative - Mycoplasma Ig.19 (normal: < 0.9), Mycoplasma IgM: negative - CXR (04/04): Limited patchy atelectasis medial right base with remaining lung liu clear. Stable prominent cardiac silhouette. - CT chest (04/04): Small to medium size right-sided effusion and mild right basilar atelectasis. Small opacities are also present within the middle lobe possibly -representing rounded atelectasis and/or infiltrates. There also appears to be some mild dependent atelectasis in the left lung base. Trace right-sided effusion. - Minimal linear scarring changes left lingular region. Suspect mild underlying pulmonary venous congestive changes. There also appears to be a few scattered parenchymal calcifications likely representing granulomata within both lower lung liu as well. Cardiomegaly. - CXR PA/Lateral 04/09 - Mild bibasilar atelectasis and/or infiltrate changes seen in the right mid to lower lung field with suspected mild left basilar atelectasis Scabies - Resolved - Off contact precautions - Benadryl cream BID prn for pruritis - Vitamin A and D TOP BID Prophylaxis/diet: - DVT: Lovenox 40units qd, SCDs - GI: Protonix 40mg IVP daily - discontinued, no longer needed Dispo: Pending Medicaid/Medicare approval. CM helping to secure fpc placement, NURSING INFORMED TO [facility] DAILY, TRIM NAILS Assessment and Plan d/w Dr. Skyler Johnson, PGY-1
[2018-05-22] MEDS: Multiple Vitamins Tab PO SCH (09:24)
[2018-05-22] MEDS: Enoxaparin 40 mg Syringe SC SCH (09:24)
--- NOTE | 2018-05-23 06:56 | CP.PCM.PN ---
<Susi Ewing - Last Filed: 05/23/18 16:42> Subjective - Date & Time of Evaluation Date of Evaluation: 05/23/18 Time of Evaluation: 06:56 - Subjective Subjective: PGY-1 Susi Ewing D.O. Medicine progress note for Dr. Richey's service: Patient was seen and examined this morning. He is sleeping but easily arousable. He states he is eating and drinking well. He denies BRENNAN, chest pain, SOB, abd pain, N/V/D/C. Objective - Vital Signs/Intake and Output Vital Signs (last 24 hours): Temp Pulse Resp BP Pulse Ox 97.9 F 62 20 122/76 97 05/23/18 00:00 05/23/18 00:00 05/23/18 00:00 05/23/18 00:00 05/23/18 00:00 Intake and Output: 05/22/18 05/23/18 18:59 06:59 Intake Total 300 Balance 300 - Medications Medications: Current Medications Amlodipine Besylate (Norvasc) 10 mg PO DAILY [facility] Last Admin: 05/22/18 09:24 Dose: 10 mg Aspirin (Ecotrin) 81 mg PO DAILY [facility] Last Admin: 05/22/18 09:24 Dose: 81 mg Enoxaparin Sodium (Lovenox) 40 mg SC DAILY [facility] Last Admin: 05/22/18 09:24 Dose: 40 mg Folic Acid (Folic Acid) 1 mg PO DAILY [facility] Last Admin: 05/22/18 09:24 Dose: 1 mg Isosorbide Mononitrate (Ismo) 20 mg PO Q24H [facility] Last Admin: 05/22/18 13:41 Dose: Not Given Lisinopril (Zestril) 40 mg PO Q24H [facility] Last Admin: 05/22/18 20:00 Dose: 40 mg Multivitamins (Hexavitamin) 1 tab PO DAILY [facility] Last Admin: 05/22/18 09:24 Dose: 1 tab Thiamine HCl (Vitamin B1 Tab) 100 mg PO DAILY [facility] Last Admin: 05/22/18 09:24 Dose: 100 mg - Labs Labs: 05/21/18 06:32 05/21/18 06:32 PT 16.4 SECONDS (9.7-12.2) H 04/06/18 07:35 INR 1.5 04/06/18 07:35 APTT 28 SECONDS (21-34) 04/06/18 07:35 - Additional Findings Additional findings: - Constitutional Appears: No Acute Distress, Chronically Ill - Head Exam Head Exam: ATRAUMATIC, NORMAL INSPECTION - Eye Exam Eye Exam: EOMI - ENT Exam ENT Exam: Mucous Membranes Moist - Respiratory Exam Respiratory Exam: Clear to Ausculation Bilateral, NORMAL BREATHING PATTERN. absent: Rales, Rhonchi - Cardiovascular Exam Cardiovascular Exam: REGULAR RHYTHM, +S1, +S2 - GI/Abdominal Exam GI & Abdominal Exam: Soft, Normal Bowel Sounds. absent: Tenderness - Extremities Exam Extremities Exam: absent: Pedal Edema, Tenderness - Neurological Exam Neurological Exam: Alert, Awake. - Psychiatric Exam Psychiatric exam: Flat Affect, Normal Mood - Skin Skin Exam: Dry, Intact, Normal Color, Warm Assessment and Plan - Assessment and Plan (Free Text) Assessment: 58 year old male with PMHx of HTN, ETOH abuse, CHF, and CVA presented to the ED for foot pain and with altered mental status. Patient currently stable on medicine floor. No longer need daily labs, now weekly on Fridays. Needs continued PT given gait imbalance and deconditioning. He is able to walk only with rolling walker, but he is without insurance and cannot go to correction given his need for device. As per TARIK/JASON- patient previously had Medicare but is deactivated. Medicaid application has been submitted. SW was able to contact one family member, but he did not want to discuss the patient. Patient allegedly has a girlfriend who infrequently visits. SW will try to contact her. Plan: Deconditioning - PT- rec LINDSAY; rolling walker, supervision x 300 feet - Per case management, patient will not be accepted to a homeless correction without ability to ambulate independently without a walker - JASON submitted Medicaid application - CT head (04/04): Chronic microvascular ischemic changes. 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 B/l basal ganglia and R thalamic lacunar infarcts. Focal encephalomalacia in the R duenas radiata. Transaminitis, stable - Off statin since 05/03 - Hepatitis C Ab Reactive - Pending genotyping and viral load for Hepatitis C - Patient reports he has not had treatment before - Patient does have tattoos on his body unclear when he has received them - Abd US (05/08): hepatic steatosis without focal abnormality Hypertension, well-controlled - Vitals Q4H - Imdur 20mg PO daily - Lisinopril 10mg PO QDaily - Amlodipine 10mg PO QDaily - Secondary HTN workup: - Renal artery duplex 04/05/2018: RIGHT: Findings suggestive of hemodynamically significant stenosis of the right renal artery, proximal segment. LEFT: No definite hemodynamically significant stenosis involving the renal arteries as visualized. Diastolic CHF (HFpEF), chronic - Cardiology, Dr. Dobbs consulted - Continue current regimen for BP control - hydralazine 100 PO q8, norvasc 10 PO daily, lisinopril 40 PO daily - No additional echo indicated on this admission as patient is not showing symptoms of heart failure - ProBNP: 29,300- increased from previous admissions - Previous Echo (08/2017): LV normal size, borderline LV hypertrophy, Systolic function borderline, mild septal hypokinesis, LVEF >50% - No beta jessica given side effect of bronchospasm - Holding Crestor 5mg PO daily due to LFTs - Aspirin 81mg PO daily Alcohol use disorder, chronic - Completed Ativan taper. - Serum alcohol level: < 10 - UDS: Negative - Vitamin B12: 511m Folate levels: > 20 - Ammonia wnl - Thiamine, folic acid, multivitamin Lower extremity swelling, resolved - Consulted with podiatry during hospitalization - No evidence of cellulitis, lower extremities show blanchable erythema - Completed IV abx to cover for cellulitis and pneumonia - Foot Xray (04/03): Degenerative changes of the forefoot. No acute fractures, subluxations. B/l hammertoe deformities are identified diffusely. Severe hallux valgus deformity noted. Large plantar calcaneal spurs b/l. Atelectasis, resolved - Completed IV abx to cover for pnuemonia - Legionella, s. pneumonia, influenza: Negative, Mycoplasma Ig.19 (normal: < 0.9), Mycoplasma IgM: negative - CXR (04/04): Limited patchy atelectasis medial right base with remaining lung liu clear. Stable prominent cardiac silhouette. - CT chest (04/04): Small to medium size right-sided effusion and mild right basilar atelectasis. Small opacities are also present within the middle lobe possibly representing rounded atelectasis and/or infiltrates. There also appears to be some mild dependent atelectasis in the left lung base. Trace right-sided effusion. Minimal linear scarring changes left lingular region. Suspect mild underlying pulmonary venous congestive changes. There also appears to be a few scattered parenchymal calcifications likely representing granulomata within both lower lung liu as well. Cardiomegaly. - CXR PA/Lateral (04/09): Mild bibasilar atelectasis and/or infiltrate changes seen in the right mid to lower lung field with suspected mild left basilar atelectais Scabies, resolved - Completed 2 doses of Permethrin during hospitalization - Vitamin A and D TOP BID for dry skin COPD exacerbation, resolved - Pulmonology, Dr. Lebron consulted - Patient is stable, O2 % saturation: 95-100% on room air Acute kidney injury, resolved - Nephrology, Dr. Lizarraga consulted - Avoid nephrotoxic agents (NSAIDS, phosphate enema) - Renal artery duplex - possible significant GLADIS - see above - Renal ultrasound (04/05): non-obstructive left nephrolithiasis. Otherwise normal ultrasound Ppx: VTE: Lovenox 40 mg SC daily GI: not indicated Code status: full code Case was discussed with attending, Dr. Richey. <Dominique Richey V - Last Filed: 05/23/18 17:36> Objective - Vital Signs/Intake and Output Vital Signs (last 24 hours): Temp Pulse Resp BP Pulse Ox 98.1 F 90 20 101/68 96 05/23/18 15:52 05/23/18 15:52 05/23/18 15:52 05/23/18 15:52 05/23/18 15:52 Intake and Output: 05/23/18 05/23/18 06:59 18:59 Intake Total 600 Balance 600 - Medications Medications: Current Medications Amlodipine Besylate (Norvasc) 10 mg PO DAILY [facility] Last Admin: 05/23/18 09:25 Dose: 10 mg Aspirin (Ecotrin) 81 mg PO DAILY [facility] Last Admin: 05/23/18 09:25 Dose: 81 mg Enoxaparin Sodium (Lovenox) 40 mg SC DAILY [facility] Last Admin: 05/23/18 09:25 Dose: 40 mg Folic Acid (Folic Acid) 1 mg PO DAILY [facility] Last Admin: 05/23/18 09:25 Dose: 1 mg Isosorbide Mononitrate (Ismo) 20 mg PO Q24H [facility] Last Admin: 05/23/18 13:54 Dose: 20 mg Lisinopril (Zestril) 40 mg PO Q24H [facility] Last Admin: 05/22/18 20:00 Dose: 40 mg Multivitamins (Hexavitamin) 1 tab PO DAILY [facility] Last Admin: 05/23/18 09:25 Dose: 1 tab Thiamine HCl (Vitamin B1 Tab) 100 mg PO DAILY [facility] Last Admin: 05/23/18 09:25 Dose: 100 mg Vitamin A (Vitamin A & D Oint Ud Foilpak) 1 ea TOP BID [facility] - Labs Labs: 05/21/18 06:32 05/21/18 06:32 PT 16.4 SECONDS (9.7-12.2) H 04/06/18 07:35 INR 1.5 04/06/18 07:35 APTT 28 SECONDS (21-34) 04/06/18 07:35 Attending/Attestation - Attestation I have personally seen and examined this patient.: Yes I have fully participated in the care of the patient.: Yes I have reviewed all pertinent clinical information, including history, physical exam and plan: Yes Notes (Text): Patient seen, examined, and case discussed with day-time resident. Patient seen during rounds today. Patient denies acute complaints except for dry cough. We will continue to monitor. Patient is aware he has hepatitis C is based on blood work here in the hospital, we are awaiting viral load and genotyping so patient can complete treatment as an outpatient. Statin has been discontinue in light of transaminitis. I have spoken with the telephonic nurse case manager, Mary, however, discharge planning is still in progress. We will continue to monitor the patient and continue therapy for his chronic conditions.
[2018-05-23] MEDS: Multiple Vitamins Tab PO SCH (09:25)
[2018-05-23] MEDS: Enoxaparin 40 mg Syringe SC SCH (09:25)
[2018-05-23] MEDS: Vitamins A & D Oint UD Foilpak TOP SCH (19:00)
[2018-05-24 07:48] LABS: ALBUMIN 3.8 g/dL (3.5-5.0); ALT/SGPT 226 U/L (21-72); AST/SGOT 126 U/L (17-59); BLOOD UREA NITROGEN 54 mg/dL (9-20); CALCIUM 9.5 mg/dl (8.6-10.4); GFR NON-AFRICAN AMERICAN > 60
[2018-05-24] MEDS: Enoxaparin 40 mg Syringe SC SCH (10:00)
[2018-05-24] MEDS: Multiple Vitamins Tab PO SCH (10:00)
[2018-05-24] MEDS: Vitamins A & D Oint UD Foilpak TOP SCH ×2 (10:00→17:35)
--- NOTE | 2018-05-25 06:56 | CP.PCM.PN ---
<Pablo Pathak - Last Filed: 05/25/18 17:15> Subjective - Date & Time of Evaluation Date of Evaluation: 05/25/18 Time of Evaluation: 09:00 - Subjective Subjective: PGY-[address] Richey service Patient is seen and examined at bedside. Patient reports no overnight events, denies any complaints at this time. States he is eating and OOB and having regular bowel movements. Patient responds with yes or no when asked. Patient belched a few times during encounter but does not report any abdominal pain or concerns. Patient denies any fevers, chills, chest pain, shortness of breath, n/v/c/d or urinary symptoms. Objective - Vital Signs/Intake and Output Vital Signs (last 24 hours): Temp Pulse Resp BP Pulse Ox 98 F 78 20 102/67 99 05/25/18 00:00 05/25/18 00:00 05/25/18 00:00 05/25/18 00:00 05/25/18 00:00 Intake and Output: 05/24/18 05/25/18 18:59 06:59 Intake Total 500 450 Output Total 500 Balance 500 -50 - Medications Medications: Current Medications Amlodipine Besylate (Norvasc) 10 mg PO DAILY [facility] Last Admin: 05/24/18 10:00 Dose: 10 mg Aspirin (Ecotrin) 81 mg PO DAILY [facility] Last Admin: 05/24/18 10:00 Dose: 81 mg Enoxaparin Sodium (Lovenox) 40 mg SC DAILY [facility] Last Admin: 05/24/18 10:00 Dose: 40 mg Folic Acid (Folic Acid) 1 mg PO DAILY [facility] Last Admin: 05/24/18 10:00 Dose: 1 mg Isosorbide Mononitrate (Ismo) 20 mg PO Q24H [facility] Last Admin: 05/24/18 14:51 Dose: 20 mg Lisinopril (Zestril) 40 mg PO Q24H [facility] Last Admin: 05/24/18 21:31 Dose: 40 mg Multivitamins (Hexavitamin) 1 tab PO DAILY [facility] Last Admin: 05/24/18 10:00 Dose: 1 tab Thiamine HCl (Vitamin B1 Tab) 100 mg PO DAILY [facility] Last Admin: 05/24/18 10:00 Dose: 100 mg Vitamin A (Vitamin A & D Oint Ud Foilpak) 1 ea TOP BID [facility] Last Admin: 05/24/18 17:35 Dose: 1 ea - Labs Labs: 05/21/18 06:32 05/24/18 07:17 PT 16.4 SECONDS (9.7-12.2) H 04/06/18 07:35 INR 1.5 04/06/18 07:35 APTT 28 SECONDS (21-34) 04/06/18 07:35 - Constitutional Appears: Non-toxic, No Acute Distress, Chronically Ill - Head Exam Head Exam: ATRAUMATIC, NORMAL INSPECTION, NORMOCEPHALIC - Eye Exam Eye Exam: EOMI, Normal appearance, PERRL - ENT Exam ENT Exam: Mucous Membranes Moist, Normal Exam - Neck Exam Neck Exam: Full ROM, Normal Inspection - Respiratory Exam Respiratory Exam: Clear to Ausculation Bilateral, NORMAL BREATHING PATTERN. absent: Accessory Muscle Use, Rales, Rhonchi, Wheezes, Respiratory Distress - Cardiovascular Exam Cardiovascular Exam: REGULAR RHYTHM, +S1, +S2 - GI/Abdominal Exam GI & Abdominal Exam: Soft, Normal Bowel Sounds. absent: Distended, Tenderness - Extremities Exam Extremities Exam: Full ROM, Normal Inspection. absent: Pedal Edema, Tenderness - Back Exam Back Exam: Full ROM, NORMAL INSPECTION - Neurological Exam Neurological Exam: Alert, Awake - Psychiatric Exam Psychiatric exam: Flat Affect, Normal Mood - Skin Skin Exam: Dry, Intact, Normal Color, Warm Assessment and Plan - Assessment and Plan (Free Text) Assessment: 58 year old male with PMHx of HTN, ETOH abuse, CHF, and CVA presented to the ED for foot pain and with altered mental status. Patient currently stable on medicine floor with no complaints at this time, awaiting insurance coverage and LTC placement. Plan: Deconditioning - PT- rec LINDSAY; rolling walker, supervision x 300 feet - Per case management, patient will not be accepted to a homeless nursing home without ability to ambulate independently without a walker - SW submitted Medicaid application - CT head (04/04): Chronic microvascular ischemic changes. 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 B/l basal ganglia and R thalamic lacunar infarcts. Focal encephalomalacia in the R duenas radiata. Transaminitis, stable - AST/ALT: 126/226 - remain stable - Off statin since 05/03 - Hepatitis C Ab Reactive - Pending genotyping and viral load for Hepatitis C - Patient reports he has not had treatment before - Patient does have tattoos on his body unclear when he has received them - Abd US (05/08): hepatic steatosis without focal abnormality Hypertension, well-controlled - 05/25 - - Vitals Q4H - Continue HTN meds: - Idosorbide mononitrate 20mg PO daily - Lisinopril 40mg PO QDaily - Amlodipine 10mg PO QDaily - Secondary HTN workup: - Renal artery duplex 04/05/2018: RIGHT: Findings suggestive of hemodynamically significant stenosis of the right renal artery, proximal segment. LEFT: No definite hemodynamically significant stenosis involving the renal arteries as visualized. Diastolic CHF (HFpEF), chronic - Cardiology, Dr. Dobbs consulted - Continue current regimen for BP control - norvasc 10 PO daily, lisinopril 40 PO daily - No additional echo indicated on this admission as patient is not showing symptoms of heart failure - ProBNP: 29,300- increased from previous admissions - Previous Echo (08/2017): LV normal size, borderline LV hypertrophy, Systolic function borderline, mild septal hypokinesis, LVEF >50% - No beta jessica given side effect of bronchospasm - Holding Crestor 5mg PO daily due to LFTs - Aspirin 81mg PO daily Alcohol use disorder, chronic - Completed Ativan taper. - Serum alcohol level: < 10 - UDS: Negative - Vitamin B12: 511m Folate levels: > 20 - Ammonia wnl - cont Thiamine, folic acid, multivitamin Lower extremity swelling, resolved - Consulted with podiatry during hospitalization - No evidence of cellulitis, lower extremities show blanchable erythema - Completed IV abx to cover for cellulitis and pneumonia - Foot Xray (04/03): Degenerative changes of the forefoot. No acute fractures, subluxations. B/l hammertoe deformities are identified diffusely. Severe hallux valgus deformity noted. Large plantar calcaneal spurs b/l. Atelectasis, resolved - Completed IV abx to cover for pneumonia - Legionella, s. pneumonia, influenza: Negative, Mycoplasma Ig.19 (normal: < 0.9), Mycoplasma IgM: negative - CXR (04/04): Limited patchy atelectasis medial right base with remaining lung liu clear. Stable prominent cardiac silhouette. - CT chest (04/04): Small to medium size right-sided effusion and mild right basilar atelectasis. Small opacities are also present within the middle lobe possibly representing rounded atelectasis and/or infiltrates. There also appears to be some mild dependent atelectasis in the left lung base. Trace right-sided effusion. Minimal linear scarring changes left lingular region. Suspect mild underlying pulmonary venous congestive changes. There also appears to be a few scattered parenchymal calcifications likely representing granulomata within both lower lung liu as well. Cardiomegaly. - CXR PA/Lateral (04/09): Mild bibasilar atelectasis and/or infiltrate changes seen in the right mid to lower lung field with suspected mild left basilar atelectais Scabies, resolved - Completed 2 doses of Permethrin during hospitalization - Vitamin A and D TOP BID for dry skin hx of COPD - resolved previous COPD exarcerbation - Pulmonology, Dr. Lebron consulted - Patient is stable, O2 % saturation: 95-100% on room air Acute kidney injury, resolved - 05/24: BUN/cr - 54/0.1 - Nephrology, Dr. Lizarraga consulted - Avoid nephrotoxic agents (NSAIDS, phosphate enema) - Renal artery duplex - possible significant GLADIS - see above - Renal ultrasound (04/05): non-obstructive left nephrolithiasis. Otherwise normal ultrasound Ppx: VTE: Lovenox 40 mg SC daily GI: not indicated Code status: full code Dispo: Patient medicaid application is in progress with [employer]. Patient is for [facility] care [facility] Nursing facility once financial coverage is obtained. Labs obtained every 7 days, next lab on 05/28 Case was discussed with Dr. Richey. Pablo Pathak, PGY-1 <Dominique Richey V - Last Filed: 05/26/18 15:14> Objective - Vital Signs/Intake and Output Vital Signs (last 24 hours): Temp Pulse Resp BP Pulse Ox 98.1 F 78 29 H 113/77 96 05/26/18 07:47 05/26/18 07:47 05/26/18 07:47 05/26/18 07:47 05/26/18 07:47 Intake and Output: 05/26/18 05/26/18 06:59 18:59 Intake Total 750 Balance 750 - Medications Medications: Current Medications Amlodipine Besylate (Norvasc) 10 mg PO DAILY [facility] Aspirin (Ecotrin) 81 mg PO DAILY [facility] Enoxaparin Sodium (Lovenox) 40 mg SC DAILY [facility] Folic Acid (Folic Acid) 1 mg PO DAILY [facility] Isosorbide Mononitrate (Ismo) 20 mg PO Q24H [facility] Lisinopril (Zestril) 40 mg PO Q24H [facility] Multivitamins (Hexavitamin) 1 tab PO DAILY [facility] Thiamine HCl (Vitamin B1 Tab) 100 mg PO DAILY [facility] Vitamin A (Vitamin A & D Oint Ud Foilpak) 1 ea TOP BID [facility] - Labs Labs: 05/21/18 06:32 05/24/18 07:17 PT 16.4 SECONDS (9.7-12.2) H 04/06/18 07:35 INR 1.5 04/06/18 07:35 APTT 28 SECONDS (21-34) 04/06/18 07:35 Attending/Attestation - Attestation I have personally seen and examined this patient.: Yes I have fully participated in the care of the patient.: Yes I have reviewed all pertinent clinical information, including history, physical exam and plan: Yes Notes (Text): This is late computer entry for 05/25/18. Patient seen, examined, and case discussed with day-time resident. Patient denies acute complaints. Patient is pending placement. Case and social work are aware.
[2018-05-25] MEDS: Vitamins A & D Oint UD Foilpak TOP SCH ×2 (09:07→18:48)
[2018-05-25] MEDS: Enoxaparin 40 mg Syringe SC SCH (09:07)
[2018-05-25] MEDS: Multiple Vitamins Tab PO SCH (09:07)
[2018-05-26] MEDS: Vitamins A & D Oint UD Foilpak TOP SCH ×2 (09:17→18:43)
[2018-05-26] MEDS: Multiple Vitamins Tab PO SCH (09:18)
[2018-05-26] MEDS: Enoxaparin 40 mg Syringe SC SCH (09:18)
[2018-05-27] MEDS: Vitamins A & D Oint UD Foilpak TOP SCH ×2 (09:05→17:55)
[2018-05-27] MEDS: Enoxaparin 40 mg Syringe SC SCH (09:06)
[2018-05-27] MEDS: Multiple Vitamins Tab PO SCH (09:06)
--- NOTE | 2018-05-28 06:16 | CP.PCM.PN ---
Subjective - Date & Time of Evaluation Date of Evaluation: 05/28/18 Time of Evaluation: 06:16 - Subjective Subjective: Progress note for Dr Richey service Patient is seen and examined at bedside this am. As per nurse and patient, no acute events overnight reported. Patient has no current complaints, reports eating well and having regular bowel movements. Patient has a walker nearby, but does not respond when asked if he is walking. Patient denies fever, chills, chest pain, shortness of breath, abdominal pain, n/v/d/c, urinary symptoms. Objective - Vital Signs/Intake and Output Vital Signs (last 24 hours): Temp Pulse Resp BP Pulse Ox 97.3 F L 82 20 119/72 97 05/28/18 00:01 05/28/18 00:01 05/28/18 00:01 05/28/18 00:01 05/28/18 00:01 Intake and Output: 05/27/18 05/28/18 18:59 06:59 Intake Total 480 300 Balance 480 300 - Medications Medications: Current Medications Amlodipine Besylate (Norvasc) 10 mg PO DAILY [facility] Last Admin: 05/27/18 09:06 Dose: 10 mg Aspirin (Ecotrin) 81 mg PO DAILY [facility] Last Admin: 05/27/18 09:06 Dose: 81 mg Enoxaparin Sodium (Lovenox) 40 mg SC DAILY [facility] Last Admin: 05/27/18 09:06 Dose: 40 mg Folic Acid (Folic Acid) 1 mg PO DAILY [facility] Last Admin: 05/27/18 09:06 Dose: 1 mg Isosorbide Mononitrate (Ismo) 20 mg PO Q24H [facility] Last Admin: 05/27/18 10:48 Dose: 20 mg Lisinopril (Zestril) 40 mg PO Q24H [facility] Last Admin: 05/27/18 10:48 Dose: 40 mg Multivitamins (Hexavitamin) 1 tab PO DAILY [facility] Last Admin: 05/27/18 09:06 Dose: 1 tab Thiamine HCl (Vitamin B1 Tab) 100 mg PO DAILY [facility] Last Admin: 05/27/18 09:06 Dose: 100 mg Vitamin A (Vitamin A & D Oint Ud Foilpak) 1 ea TOP BID [facility] Last Admin: 05/27/18 17:55 Dose: 1 ea - Labs Labs: 05/21/18 06:32 05/24/18 07:17 PT 16.4 SECONDS (9.7-12.2) H 04/06/18 07:35 INR 1.5 04/06/18 07:35 APTT 28 SECONDS (21-34) 04/06/18 07:35 - Constitutional Appears: Non-toxic, No Acute Distress - Head Exam Head Exam: ATRAUMATIC, NORMAL INSPECTION, NORMOCEPHALIC - Eye Exam Eye Exam: EOMI, Normal appearance - ENT Exam ENT Exam: Mucous Membranes Moist, Normal Exam - Neck Exam Neck Exam: Full ROM, Normal Inspection - Respiratory Exam Respiratory Exam: Clear to Ausculation Bilateral, NORMAL BREATHING PATTERN. absent: Rales, Rhonchi, Wheezes, Respiratory Distress - Cardiovascular Exam Cardiovascular Exam: REGULAR RHYTHM, +S1, +S2 - GI/Abdominal Exam GI & Abdominal Exam: Soft, Normal Bowel Sounds. absent: Distended, Guarding, Tenderness - Extremities Exam Extremities Exam: Full ROM, Normal Inspection. absent: Calf Tenderness, Pedal Edema, Tenderness - Back Exam Back Exam: Full ROM, NORMAL INSPECTION - Neurological Exam Neurological Exam: Alert, Awake, Oriented x3 - Psychiatric Exam Psychiatric exam: Flat Affect, Normal Mood - Skin Skin Exam: Dry, Intact, Normal Color, Warm Assessment and Plan - Assessment and Plan (Free Text) Assessment: 58 year old male with PMHx of HTN, ETOH abuse, CHF, and CVA presented to the ED for foot pain and with altered mental status. Patient currently stable on medicine floor with no complaints at this time, labs stable and vitals within normal limitis, awaiting insurance coverage and LTC placement. Plan: Deconditioning - Patient labs 05/28 H/H: 12.2/36.9 WBC 4.1 platelets: 328 Na/K/Cl/HCO3/BUN/C<glu --- 135/4.4/100/27/50/1.0<85 - next labs 06/04/2018 - PT- rec LINDSAY; rolling walker, supervision x 300 feet - Per case management, patient will not be accepted to a homeless snf without ability to ambulate independently without a walker - SW submitted Medicaid application - CT head (04/04): Chronic microvascular ischemic changes. 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 B/l basal ganglia and R thalamic lacunar infarcts. Focal encephalomalacia in the R duenas radiata. Transaminitis, stable - AST/ALT: 126/226 - 05/28 AST/ALT: 131/231 - remain stable - Off statin since 05/03 - Hepatitis C Ab Reactive - Pending genotyping and viral load for Hepatitis C - Patient reports he has not had treatment before - Patient does have tattoos on his body unclear when he has received them - Abd US (05/08): hepatic steatosis without focal abnormality Hypertension, well-controlled - 05/28 - 118/78 - Vitals Q4H - Continue HTN meds: - Idosorbide mononitrate 20mg PO daily - Lisinopril 40mg PO QDaily - Amlodipine 10mg PO QDaily - Secondary HTN workup: - Renal artery duplex 04/05/2018: RIGHT: Findings suggestive of hemodynamically significant stenosis of the right renal artery, proximal segment . LEFT: No definite hemodynamically significant stenosis involving the renal arteries as visualized. Diastolic CHF (HFpEF), chronic - Cardiology, Dr. Dobbs consulted - Continue current regimen for BP control - norvasc 10 PO daily, lisinopril 40 PO daily - No additional echo indicated on this admission as patient is not showing symptoms of heart failure - ProBNP: 29,300- increased from previous admissions - Previous Echo (08/2017): LV normal size, borderline LV hypertrophy, Systolic function borderline, mild septal hypokinesis, LVEF >50% - No beta jessica given side effect of bronchospasm - Holding Crestor 5mg PO daily due to LFTs - continue Aspirin 81mg PO daily Alcohol use disorder, chronic - Completed Ativan taper. - Serum alcohol level: < 10 - UDS: Negative - Vitamin B12: 511m Folate levels: > 20 - Ammonia wnl - cont Thiamine, folic acid, multivitamin Lower extremity swelling, resolved - Consulted with podiatry during hospitalization - No evidence of cellulitis, lower extremities show blanchable erythema - Completed IV abx to cover for cellulitis and pneumonia - Foot Xray (04/03): Degenerative changes of the forefoot. No acute fractures, subluxations. B/l hammertoe deformities are identified diffusely. Severe hallux valgus deformity noted. Large plantar calcaneal spurs b/l. Atelectasis, resolved - Completed IV abx to cover for pneumonia - Legionella, s. pneumonia, influenza: Negative, Mycoplasma Ig.19 (normal: < 0.9), Mycoplasma IgM: negative - CXR (04/04): Limited patchy atelectasis medial right base with remaining lung liu clear. Stable prominent cardiac silhouette. - CT chest (04/04): Small to medium size right-sided effusion and mild right basilar atelectasis. Small opacities are also present within the middle lobe possibly representing rounded atelectasis and/or infiltrates. There also appears to be some mild dependent atelectasis in the left lung base. Trace right-sided effusion. Minimal linear scarring changes left lingular region. Suspect mild underlying pulmonary venous congestive changes. There also appears to be a few scattered parenchymal calcifications likely representing granulomata within both lower lung liu as well. Cardiomegaly. - CXR PA/Lateral (04/09): Mild bibasilar atelectasis and/or infiltrate changes seen in the right mid to lower lung field with suspected mild left basilar atelectais Scabies, resolved - Completed 2 doses of Permethrin during hospitalization - Vitamin A and D TOP BID for dry skin hx of COPD - resolved previous COPD exarcerbation - Pulmonology, Dr. Lebron consulted - Patient is stable, O2 % saturation: 95-100% on room air Acute kidney injury, resolved - 05/24: BUN/cr - 54/0.1 - Nephrology, Dr. Lizarraga consulted - Avoid nephrotoxic agents (NSAIDS, phosphate enema) - Renal artery duplex - possible significant GLADIS - see above - Renal ultrasound (04/05): non-obstructive left nephrolithiasis. Otherwise normal ultrasound Ppx: VTE: Lovenox 40 mg SC daily GI: not indicated Code status: full code Dispo: Patient medicaid application is in progress with [employer]. 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 Labs obtained every 7 days, next lab on 05/28 Case was discussed with Dr. Richey. Pablo Pathak, PGY-1
[2018-05-28 07:09] LABS: HEMOGLOBIN 12.2 g/dL (12.0-18.0); MEAN CELL VOLUME 88.5 fL (80.0-94.0); MEAN CORPUSCULAR HEMOGLOBIN 29.3 pg (27.0-31.0); MEAN CORPUSCULAR HGB CONC 33.1 g/dL (33.0-37.0); MEAN PLATELET VOLUME 9.1 fL (7.2-11.7); RBC 4.17 Mil/uL (4.40-5.90); RED CELL DISTRIBUTION WIDTH 16.1 % (11.5-14.5); WHITE BLOOD COUNT 4.1 K/uL (4.8-10.8)
[2018-05-28 07:44] LABS: ALBUMIN 3.6 g/dL (3.5-5.0); ALT/SGPT 231 U/L (21-72); AST/SGOT 131 U/L (17-59); BLOOD UREA NITROGEN 50 mg/dL (9-20); CALCIUM 9.4 mg/dl (8.6-10.4); GFR NON-AFRICAN AMERICAN > 60
[2018-05-28] MEDS: Vitamins A & D Oint UD Foilpak TOP SCH ×2 (09:59→18:34)
[2018-05-28] MEDS: Enoxaparin 40 mg Syringe SC SCH (09:59)
[2018-05-28] MEDS: Multiple Vitamins Tab PO SCH (10:00)
[2018-05-29] MEDS: Multiple Vitamins Tab PO SCH (10:08)
[2018-05-29] MEDS: Enoxaparin 40 mg Syringe SC SCH (10:09)
[2018-05-29] MEDS: Vitamins A & D Oint UD Foilpak TOP SCH ×2 (10:10→18:02)
--- NOTE | 2018-05-30 08:53 | CP.PCM.PN ---
<Mariaa Cristina Y - Last Filed: 05/30/18 08:50> Subjective - Date & Time of Evaluation Date of Evaluation: 05/30/18 Time of Evaluation: 09:00 - Subjective Subjective: PGY-1 Medicine Progress Note for Dr. Viktoria Pearson Patient was seen and examined today at bedside in no acute distress. Nurse reports no overnight events. Patient has no new complaints. Denies chest pain, shortness of breath, nausea, vomiting, constipation, diarrhea, difficulty urinating. Objective - Vital Signs/Intake and Output Vital Signs (last 24 hours): Temp Pulse Resp BP Pulse Ox 98.5 F 61 20 118/77 96 05/30/18 07:00 05/30/18 07:00 05/30/18 07:00 05/30/18 07:00 05/30/18 07:00 Intake and Output: 05/30/18 05/30/18 06:59 18:59 Intake Total 580 Balance 580 - Medications Medications: Current Medications Amlodipine Besylate (Norvasc) 10 mg PO DAILY [facility] Last Admin: 05/29/18 10:09 Dose: 10 mg Aspirin (Ecotrin) 81 mg PO DAILY [facility] Last Admin: 05/29/18 10:08 Dose: 81 mg Enoxaparin Sodium (Lovenox) 40 mg SC DAILY [facility] Last Admin: 05/29/18 10:09 Dose: 40 mg Folic Acid (Folic Acid) 1 mg PO DAILY [facility] Last Admin: 05/29/18 10:08 Dose: 1 mg Isosorbide Mononitrate (Ismo) 20 mg PO Q24H [facility] Last Admin: 05/29/18 10:58 Dose: 20 mg Lisinopril (Zestril) 40 mg PO Q24H [facility] Last Admin: 05/29/18 10:58 Dose: 40 mg Multivitamins (Hexavitamin) 1 tab PO DAILY [facility] Last Admin: 05/29/18 10:08 Dose: 1 tab Thiamine HCl (Vitamin B1 Tab) 100 mg PO DAILY [facility] Last Admin: 05/29/18 10:08 Dose: 100 mg Vitamin A (Vitamin A & D Oint Ud Foilpak) 1 ea TOP BID [facility] Last Admin: 05/29/18 18:02 Dose: 1 ea - Labs Labs: 05/28/18 06:57 05/28/18 06:57 PT 16.4 SECONDS (9.7-12.2) H 04/06/18 07:35 INR 1.5 04/06/18 07:35 APTT 28 SECONDS (21-34) 04/06/18 07:35 - Constitutional Appears: Non-toxic, No Acute Distress - Head Exam Head Exam: ATRAUMATIC, NORMOCEPHALIC - Eye Exam Eye Exam: EOMI, Normal appearance - ENT Exam ENT Exam: Mucous Membranes Moist - Respiratory Exam Respiratory Exam: Clear to Ausculation Bilateral, NORMAL BREATHING PATTERN. absent: Rales, Rhonchi, Wheezes - Cardiovascular Exam Cardiovascular Exam: REGULAR RHYTHM, +S1, +S2 - GI/Abdominal Exam GI & Abdominal Exam: Soft, Normal Bowel Sounds. absent: Distended, Firm, Guarding - Extremities Exam Extremities Exam: Full ROM, Normal Capillary Refill. absent: Calf Tenderness - Neurological Exam Neurological Exam: Alert, Awake, Oriented x3 - Psychiatric Exam Psychiatric exam: Flat Affect, Normal Mood - Skin Skin Exam: Dry, Intact, Normal Color, Warm Assessment and Plan - Assessment and Plan (Free Text) Assessment: 58 year old male with PMHx of HTN, EtOH abuse, CHF, and CVA presented to the ED for foot pain and with altered mental status. Patient currently stable on medicine floor with no complaints at this time, labs stable and vitals within normal limitis, awaiting insurance coverage and LTC placement. Plan: Deconditioning - Patient labs 05/28 H/H: 12.2/36.9 WBC 4.1 platelets: 328 Na/K/Cl/HCO3/BUN/C<glu --- 135/4.4/100/27/50/1.0<85 - next labs 06/04/2018 - PT- rec LINDSAY; rolling walker, supervision x 300 feet - Per case management, patient will not be accepted to a homeless longterm without ability to ambulate independently without a walker - SW submitted Medicaid application - CT head (04/04): Chronic microvascular ischemic changes. 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 B/l basal ganglia and R thalamic lacunar infarcts. Focal encephalomalacia in the R duenas radiata. Transaminitis, stable - AST/ALT: 126/226 - 05/28 AST/ALT: 131/231 - remain stable - Off statin since 05/03 - Hepatitis C Ab Reactive - Pending genotyping and viral load for Hepatitis C - Patient reports he has not had treatment before - Patient does have tattoos on his body unclear when he has received them - Abd US (05/08): hepatic steatosis without focal abnormality Hypertension, well-controlled - Vitals Q4H - Continue HTN meds: - Idosorbide mononitrate 20mg PO daily - Lisinopril 40mg PO QDaily - Amlodipine 10mg PO QDaily - Secondary HTN workup: - Renal artery duplex 04/05/2018: RIGHT: Findings suggestive of hemodynamically significant stenosis of the right renal artery, proximal segment. LEFT: No definite hemodynamically significant stenosis involving the renal arteries as visualized. Diastolic CHF (HFpEF), chronic - Cardiology, Dr. Dobbs consulted - Continue current regimen for BP control - norvasc 10 PO daily, lisinopril 40 PO daily - No additional echo indicated on this admission as patient is not showing sympt oms of heart failure - ProBNP: 29,300- increased from previous admissions - Previous Echo (08/2017): LV normal size, borderline LV hypertrophy, Systolic function borderline, mild septal hypokinesis, LVEF >50% - No beta jessica given side effect of bronchospasm - Holding Crestor 5mg PO daily due to LFTs - continue Aspirin 81mg PO daily Alcohol use disorder, chronic - Completed Ativan taper. - Serum alcohol level: < 10 - UDS: Negative - Vitamin B12: 511m Folate levels: > 20 - Ammonia wnl - cont Thiamine, folic acid, multivitamin Lower extremity swelling, resolved - Consulted with podiatry during hospitalization - No evidence of cellulitis, lower extremities show blanchable erythema - Completed IV abx to cover for cellulitis and pneumonia - Foot Xray (04/03): Degenerative changes of the forefoot. No acute fractures, subluxations. B/l hammertoe deformities are identified diffusely. Severe hallux valgus deformity noted. Large plantar calcaneal spurs b/l. Atelectasis, resolved - Completed IV abx to cover for pneumonia - Legionella, s. pneumonia, influenza: Negative, Mycoplasma Ig.19 (normal: < 0.9), Mycoplasma IgM: negative - CXR (04/04): Limited patchy atelectasis medial right base with remaining lung liu clear. Stable prominent cardiac silhouette. - CT chest (04/04): Small to medium size right-sided effusion and mild right basilar atelectasis. Small opacities are also present within the middle lobe possibly representing rounded atelectasis and/or infiltrates. There also appears to be some mild dependent atelectasis in the left lung base. Trace right-sided effusion. Minimal linear scarring changes left lingular region. Suspect mild underlying pulmonary venous congestive changes. There also appears to be a few scattered parenchymal calcifications likely representing granulomata within both lower lung liu as well. Cardiomegaly. - CXR PA/Lateral (04/09): Mild bibasilar atelectasis and/or infiltrate changes seen in the right mid to lower lung field with suspected mild left basilar atele ctais Scabies, resolved - Completed 2 doses of Permethrin during hospitalization - Vitamin A and D TOP BID for dry skin hx of COPD - resolved previous COPD exarcerbation - Pulmonology, Dr. Lebron consulted - Patient is stable, O2 % saturation: 95-100% on room air Acute kidney injury, resolved - 05/24: BUN/cr - 54/0.1 - Nephrology, Dr. Lizarraga consulted - Avoid nephrotoxic agents (NSAIDS, phosphate enema) - Renal artery duplex - possible significant GLADIS - see above - Renal ultrasound (04/05): non-obstructive left nephrolithiasis. Otherwise normal ultrasound Ppx: VTE: Lovenox 40 mg SC daily GI: not indicated Code status: full code Dispo: Patient Medicaid application is in progress with [employer]. 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 L abs obtained every 7 days, next lab on 06/04 d/w Dr. Viktoria Cristina PGY-1 <Ryland Pearson - Last Filed: 06/06/18 02:44> Objective - Vital Signs/Intake and Output Vital Signs (last 24 hours): Temp Pulse Resp BP Pulse Ox 97.6 F 78 20 115/74 96 06/06/18 00:00 06/06/18 00:00 06/06/18 00:00 06/06/18 00:00 06/06/18 00:00 Intake and Output: 06/05/18 06/06/18 18:59 06:59 Intake Total 250 Balance 250 - Medications Medications: Current Medications Amlodipine Besylate (Norvasc) 10 mg PO DAILY [facility] Last Admin: 06/05/18 09:43 Dose: 10 mg Aspirin (Ecotrin) 81 mg PO DAILY [facility] Last Admin: 06/05/18 09:43 Dose: 81 mg Folic Acid (Folic Acid) 1 mg PO DAILY [facility] Last Admin: 06/05/18 09:43 Dose: 1 mg Isosorbide Mononitrate (Ismo) 20 mg PO Q24H [facility] Last Admin: 06/05/18 11:27 Dose: 20 mg Lisinopril (Zestril) 40 mg PO Q24H [facility] Last Admin: 06/05/18 11:27 Dose: 40 mg Multivitamins (Hexavitamin) 1 tab PO DAILY [facility] Last Admin: 06/05/18 09:43 Dose: 1 tab Thiamine HCl (Vitamin B1 Tab) 100 mg PO DAILY [facility] Last Admin: 06/05/18 09:43 Dose: 100 mg Vitamin A (Vitamin A & D Oint Ud Foilpak) 1 ea TOP BID [facility] Last Admin: 06/05/18 17:56 Dose: 1 ea - Labs Labs: 06/04/18 06:58 06/04/18 06:58 PT 16.4 SECONDS (9.7-12.2) H 04/06/18 07:35 INR 1.5 04/06/18 07:35 APTT 28 SECONDS (21-34) 04/06/18 07:35 Attending/Attestation - Attestation I have personally seen and examined this patient.: Yes I have fully participated in the care of the patient.: Yes I have reviewed all pertinent clinical information, including history, physical exam and plan: Yes Notes (Text): 06/06/18 02:44 This is a late entry. Care of this patient was gone over with Dr. Krishna Cristina. Ryland Pearson D.O.
[2018-05-30] MEDS: Enoxaparin 40 mg Syringe SC SCH (10:37)
[2018-05-30] MEDS: Vitamins A & D Oint UD Foilpak TOP SCH ×2 (10:37→17:26)
[2018-05-30] MEDS: Multiple Vitamins Tab PO SCH (10:37)
[2018-05-31 08:15] LABS: ALB/GLOB RATIO 1.2 (1.0-2.1); ALT/SGPT 232 U/L (21-72); AST/SGOT 123 U/L (17-59); BLOOD UREA NITROGEN 52 mg/dL (9-20); CALCIUM 9.6 mg/dl (8.6-10.4); GFR NON-AFRICAN AMERICAN > 60
--- NOTE | 2018-05-31 09:23 | CP.PCM.PCO ---
Physician Communication Note - Physician Communication Note Physician Communication Note: Please see above
[2018-05-31] MEDS: Enoxaparin 40 mg Syringe SC SCH (09:44)
[2018-05-31] MEDS: Vitamins A & D Oint UD Foilpak TOP SCH ×2 (09:44→17:33)
[2018-05-31] MEDS: Multiple Vitamins Tab PO SCH (09:52)
[2018-05-31 18:16] LABS: HCV NS3 SUBTYPE 1a
[2018-06-01] MEDS: Vitamins A & D Oint UD Foilpak TOP SCH ×2 (09:11→17:19)
[2018-06-01] MEDS: Multiple Vitamins Tab PO SCH (09:12)
[2018-06-01] MEDS: Enoxaparin 40 mg Syringe SC SCH (09:12)
--- NOTE | 2018-06-01 10:09 | CP.PCM.PN ---
<Pablo Pathak - Last Filed: 06/01/18 17:44> Subjective - Date & Time of Evaluation Date of Evaluation: 06/01/18 Time of Evaluation: 08:00 - Subjective Subjective: PGY-[address] Ryland Pearson Patient is seen and examined at bedside. Patient was found sleeping comfortably in bed. As per nurse, no acute event overnight. Patient has no current complaints at this time. Patient denies fever, chills, chest pain, shortness of breath, n/v/d/c, or urinary complains. Objective - Vital Signs/Intake and Output Vital Signs (last 24 hours): Temp Pulse Resp BP Pulse Ox 97.8 F 72 20 112/74 99 06/01/18 07:00 06/01/18 07:00 06/01/18 07:00 06/01/18 07:00 06/01/18 07:00 Intake and Output: 06/01/18 06/01/18 06:59 18:59 Intake Total 550 Balance 550 - Medications Medications: Current Medications Amlodipine Besylate (Norvasc) 10 mg PO DAILY [facility] Last Admin: 06/01/18 09:12 Dose: 10 mg Aspirin (Ecotrin) 81 mg PO DAILY [facility] Last Admin: 06/01/18 09:12 Dose: 81 mg Enoxaparin Sodium (Lovenox) 40 mg SC DAILY [facility] Last Admin: 06/01/18 09:12 Dose: 40 mg Folic Acid (Folic Acid) 1 mg PO DAILY [facility] Last Admin: 06/01/18 09:11 Dose: 1 mg Isosorbide Mononitrate (Ismo) 20 mg PO Q24H [facility] Last Admin: 05/31/18 12:50 Dose: 20 mg Lisinopril (Zestril) 40 mg PO Q24H [facility] Last Admin: 05/31/18 12:34 Dose: 40 mg Multivitamins (Hexavitamin) 1 tab PO DAILY [facility] Last Admin: 06/01/18 09:12 Dose: 1 tab Thiamine HCl (Vitamin B1 Tab) 100 mg PO DAILY [facility] Last Admin: 06/01/18 09:11 Dose: 100 mg Vitamin A (Vitamin A & D Oint Ud Foilpak) 1 ea TOP BID [facility] Last Admin: 06/01/18 09:11 Dose: 1 ea - Labs Labs: 05/28/18 06:57 05/31/18 07:53 PT 16.4 SECONDS (9.7-12.2) H 04/06/18 07:35 INR 1.5 04/06/18 07:35 APTT 28 SECONDS (21-34) 04/06/18 07:35 - Constitutional Appears: Non-toxic, No Acute Distress, Cachectic - Head Exam Head Exam: ATRAUMATIC, NORMAL INSPECTION, NORMOCEPHALIC - Eye Exam Eye Exam: EOMI, Normal appearance - ENT Exam ENT Exam: Mucous Membranes Moist, Normal Exam - Neck Exam Neck Exam: Full ROM, Normal Inspection - Respiratory Exam Respiratory Exam: Clear to Ausculation Bilateral, NORMAL BREATHING PATTERN. absent: Rales, Rhonchi, Wheezes - Cardiovascular Exam Cardiovascular Exam: REGULAR RHYTHM, +S1, +S2 - GI/Abdominal Exam GI & Abdominal Exam: Soft, Normal Bowel Sounds - Extremities Exam Extremities Exam: Full ROM, Normal Inspection. absent: Calf Tenderness, Pedal Edema, Tenderness - Back Exam Back Exam: NORMAL INSPECTION - Neurological Exam Neurological Exam: Alert, Awake, Oriented x3 - Psychiatric Exam Psychiatric exam: Flat Affect, Normal Mood - Skin Skin Exam: Dry, Intact, Normal Color, Warm Assessment and Plan - Assessment and Plan (Free Text) Assessment: 58 year old male with PMHx of HTN, EtOH abuse, CHF, and CVA presented to the ED for foot pain and with altered mental status. Patient currently stable on medicine floor with no complaints at this time, labs stable and vitals within normal limitis, awaiting insurance coverage and LTC placement. Plan: Deconditioning - Patient labs 05/28 H/H: 12.2/36.9 WBC 4.1 platelets: 328 Na/K/Cl/HCO3/BUN/C<glu --- 135/4.4/100/27/50/1.0<85 - next labs 06/04/2018 - will follow up with labs - PT- rec LINDSAY; rolling walker, supervision x 300 feet - Per case management, patient will not be accepted to a homeless residential without ability to ambulate independently without a walker - SW submitted Medicaid application - in progress - will continue to follow up with SW and case resolution specialist - CT head (04/04): Chronic microvascular ischemic changes. 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 B/l basal ganglia and R thalamic lacunar infarcts. Focal encephalomalacia in the R duenas radiata. Transaminitis, stable - AST/ALT: 126/226 - 05/28 AST/ALT: 131/231 - remain stable - Off statin since 05/03 - Hepatitis C Ab Reactive - HCV RNA qual - pending - Patient reports he has not had treatment before - Patient does have tattoos on his body unclear when he has received them - Abd US (05/08): hepatic steatosis without focal abnormality Hypertension, well-controlled - Vitals Q4H - Continue HTN meds: - Idosorbide mononitrate 20mg PO daily - Lisinopril 40mg PO QDaily - Amlodipine 10mg PO QDaily - Secondary HTN workup: - Renal artery duplex 04/05/2018: RIGHT: Findings suggestive of hemodynamically significant stenosis of the right renal artery, proximal segment. LEFT: No definite hemodynamically significant stenosis involving the renal arteries as visualized. Diastolic CHF (HFpEF), chronic - Cardiology, Dr. Dobbs consulted - Continue current regimen for BP control - norvasc 10 PO daily, lisinopril 40 PO daily - No additional echo indicated on this admission as patient is not showing symptoms of heart failure - ProBNP: 29,300- increased from previous admissions - Previous Echo (08/2017): LV normal size, borderline LV hypertrophy, Systolic function borderline, mild septal hypokinesis, LVEF >50% - No beta jessica given side effect of bronchospasm - Holding Crestor 5mg PO daily due to LFTs - continue Aspirin 81mg PO daily Alcohol use disorder, chronic - Completed Ativan taper. - Serum alcohol level: < 10 - UDS: Negative - Vitamin B12: 511m Folate levels: > 20 - Ammonia wnl - cont Thiamine, folic acid, multivitamin Lower extremity swelling, resolved - Consulted with podiatry during hospitalization - No evidence of cellulitis, lower extremities show blanchable erythema - Completed IV abx to cover for cellulitis and pneumonia - Foot Xray (04/03): Degenerative changes of the forefoot. No acute fractures, subluxations. B/l hammertoe deformities are identified diffusely. Severe hallux valgus deformity noted. Large plantar calcaneal spurs b/l. Atelectasis, resolved - Completed IV abx to cover for pneumonia - Legionella, s. pneumonia, influenza: Negative, Mycoplasma Ig.19 (normal: < 0.9), Mycoplasma IgM: negative - CXR (04/04): Limited patchy atelectasis medial right base with remaining lung liu clear. Stable prominent cardiac silhouette. - CT chest (04/04): Small to medium size right-sided effusion and mild right basilar atelectasis. Small opacities are also present within the middle lobe possibly representing rounded atelectasis and/or infiltrates. There also appears to be some mild dependent atelectasis in the left lung base. Trace right-sided effusion. Minimal linear scarring changes left lingular region. Suspect mild underlying pulmonary venous congestive changes. There also appears to be a few scattered parenchymal calcifications likely representing granulomata within both lower lung liu as well. Cardiomegaly. - CXR PA/Lateral (04/09): Mild bibasilar atelectasis and/or infiltrate changes seen in the right mid to lower lung field with suspected mild left basilar atelectais Scabies, resolved - Completed 2 doses of Permethrin during hospitalization - Vitamin A and D TOP BID for dry skin hx of COPD - resolved previous COPD exarcerbation - Pulmonology, Dr. Lebron consulted - Patient is stable, O2 % saturation: 95-100% on room air Acute kidney injury, resolved - 05/24: BUN/cr - 54/0.1 - Nephrology, Dr. Lizarraga consulted - Avoid nephrotoxic agents (NSAIDS, phosphate enema) - Renal artery duplex - possible significant GLADIS - see above - Renal ultrasound (04/05): non-obstructive left nephrolithiasis. Otherwise normal ultrasound Ppx: VTE: Lovenox 40 mg SC daily GI: not indicated Code status: full code Dispo: Patient Medicaid application is in progress. Patient is for USP care at Nursing facility once financial coverage is obtained. Labs obtained every 7 days, next lab on 06/04. Nursing communication note written indicating for patient to be bathed with a sponge bath this afternoon or evening and for his nails to be cleaned. Plan discussed with Dr Ryland Pathak, PGY-1 <Ryland Pearson - Last Filed: 06/06/18 02:44> Objective - Vital Signs/Intake and Output Vital Signs (last 24 hours): Temp Pulse Resp BP Pulse Ox 97.6 F 78 20 115/74 96 06/06/18 00:00 06/06/18 00:00 06/06/18 00:00 06/06/18 00:00 06/06/18 00:00 Intake and Output: 06/05/18 06/06/18 18:59 06:59 Intake Total 250 Balance 250 - Medications Medications: Current Medications Amlodipine Besylate (Norvasc) 10 mg PO DAILY [facility] Last Admin: 06/05/18 09:43 Dose: 10 mg Aspirin (Ecotrin) 81 mg PO DAILY [facility] Last Admin: 06/05/18 09:43 Dose: 81 mg Folic Acid (Folic Acid) 1 mg PO DAILY [facility] Last Admin: 06/05/18 09:43 Dose: 1 mg Isosorbide Mononitrate (Ismo) 20 mg PO Q24H [facility] Last Admin: 06/05/18 11:27 Dose: 20 mg Lisinopril (Zestril) 40 mg PO Q24H [facility] Last Admin: 06/05/18 11:27 Dose: 40 mg Multivitamins (Hexavitamin) 1 tab PO DAILY [facility] Last Admin: 06/05/18 09:43 Dose: 1 tab Thiamine HCl (Vitamin B1 Tab) 100 mg PO DAILY [facility] Last Admin: 06/05/18 09:43 Dose: 100 mg Vitamin A (Vitamin A & D Oint Ud Foilpak) 1 ea TOP BID [facility] Last Admin: 06/05/18 17:56 Dose: 1 ea - Labs Labs: 06/04/18 06:58 06/04/18 06:58 PT 16.4 SECONDS (9.7-12.2) H 04/06/18 07:35 INR 1.5 04/06/18 07:35 APTT 28 SECONDS (21-34) 04/06/18 07:35 Attending/Attestation - Attestation I have personally seen and examined this patient.: Yes I have fully participated in the care of the patient.: Yes I have reviewed all pertinent clinical information, including history, physical exam and plan: Yes Notes (Text): 06/06/18 02:43 This is a late entry. Care of this patient was gone over with resident Dr. Jose Daniel Pathak. Ryland Pearson D.O.
[2018-06-02] MEDS: Multiple Vitamins Tab PO SCH (09:44)
[2018-06-02] MEDS: Enoxaparin 40 mg Syringe SC SCH (09:44)
[2018-06-02] MEDS: Vitamins A & D Oint UD Foilpak TOP SCH ×2 (09:45→17:29)
[2018-06-03] MEDS: Multiple Vitamins Tab PO SCH (09:09)
[2018-06-03] MEDS: Enoxaparin 40 mg Syringe SC SCH (09:09)
[2018-06-03] MEDS: Vitamins A & D Oint UD Foilpak TOP SCH ×2 (09:10→17:50)
[2018-06-04 07:04] LABS: HEMOGLOBIN 12.8 g/dL (12.0-18.0); MEAN CELL VOLUME 87.5 fL (80.0-94.0); MEAN CORPUSCULAR HEMOGLOBIN 28.8 pg (27.0-31.0); MEAN CORPUSCULAR HGB CONC 32.9 g/dL (33.0-37.0); MEAN PLATELET VOLUME 8.4 fL (7.2-11.7); RBC 4.45 Mil/uL (4.40-5.90); WHITE BLOOD COUNT 7.2 K/uL (4.8-10.8)
--- NOTE | 2018-06-04 07:09 | CP.PCM.PN ---
<Pablo Pathak - Last Filed: 06/04/18 17:21> Subjective - Date & Time of Evaluation Date of Evaluation: 06/04/18 Time of Evaluation: 08:00 - Subjective Subjective: PGY-[address] Ryland Pearson Patient is seen and examined at bedside. Patient reports no acute events overnight, he is comfortably lying in bed. Patient has no complaints. Patient responds questions with a "Yes" or "No" and does not elaborate on his answer. PAtient denies fever, chills, chest pain, headaches, shortness of breath, abdominal pain, n/v/d/c or urinary symptoms. Patient is eating well, and uses walker to mobilize himself. Objective - Vital Signs/Intake and Output Vital Signs (last 24 hours): Temp Pulse Resp BP Pulse Ox 97.9 F 75 20 113/73 97 06/04/18 00:46 06/04/18 00:46 06/04/18 00:46 06/04/18 00:46 06/04/18 00:46 Intake and Output: 06/04/18 06/04/18 06:59 18:59 Intake Total 300 Balance 300 - Medications Medications: Current Medications Amlodipine Besylate (Norvasc) 10 mg PO DAILY [facility] Last Admin: 06/03/18 09:09 Dose: 10 mg Aspirin (Ecotrin) 81 mg PO DAILY [facility] Last Admin: 06/03/18 09:09 Dose: 81 mg Folic Acid (Folic Acid) 1 mg PO DAILY [facility] Last Admin: 06/03/18 09:09 Dose: 1 mg Isosorbide Mononitrate (Ismo) 20 mg PO Q24H [facility] Last Admin: 06/03/18 10:56 Dose: 20 mg Lisinopril (Zestril) 40 mg PO Q24H [facility] Last Admin: 06/03/18 12:05 Dose: 40 mg Multivitamins (Hexavitamin) 1 tab PO DAILY [facility] Last Admin: 06/03/18 09:09 Dose: 1 tab Thiamine HCl (Vitamin B1 Tab) 100 mg PO DAILY [facility] Last Admin: 06/03/18 09:09 Dose: 100 mg Vitamin A (Vitamin A & D Oint Ud Foilpak) 1 ea TOP BID [facility] Last Admin: 06/03/18 17:50 Dose: 1 ea - Labs Labs: 06/04/18 06:58 05/31/18 07:53 PT 16.4 SECONDS (9.7-12.2) H 04/06/18 07:35 INR 1.5 04/06/18 07:35 APTT 28 SECONDS (21-34) 04/06/18 07:35 - Constitutional Appears: Non-toxic, No Acute Distress, Unkempt (body odor ), Chronically Ill - Head Exam Head Exam: ATRAUMATIC, NORMAL INSPECTION, NORMOCEPHALIC - Eye Exam Eye Exam: EOMI, Normal appearance - ENT Exam ENT Exam: Mucous Membranes Moist, Normal Exam Additional comments: unkempt teeth - Neck Exam Neck Exam: Full ROM, Normal Inspection - Respiratory Exam Respiratory Exam: Clear to Ausculation Bilateral, NORMAL BREATHING PATTERN. absent: Rales, Rhonchi, Wheezes - Cardiovascular Exam Cardiovascular Exam: REGULAR RHYTHM, +S1, +S2 - GI/Abdominal Exam GI & Abdominal Exam: Soft, Normal Bowel Sounds. absent: Distended, Guarding, Tenderness, Mass - Extremities Exam Extremities Exam: Full ROM, Normal Inspection - Back Exam Back Exam: NORMAL INSPECTION - Neurological Exam Neurological Exam: Alert, Awake, Oriented x3 Neuro motor strength exam: Left Upper Extremity: 5, Right Upper Extremity: 5, Left Lower Extremity: 5, Right Lower Extremity: 5 - Psychiatric Exam Psychiatric exam: Depressed, Flat Affect - Skin Skin Exam: Intact, Normal Color, Warm Assessment and Plan - Assessment and Plan (Free Text) Plan: Deconditioning - PT- rec LINDSAY; rolling walker, supervision x 300 feet - Per case management, patient will not be accepted to a homeless penit[facility] without ability to ambulate independently without a walker - submitted Medicaid application - CT head (04/04): Chronic microvascular ischemic changes. 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 B/l basal ganglia and R thalamic lacunar infarcts. Focal encephalomalacia in the R duenas radiata. Transaminitis, stable - AST/ALT: 126/226 - remain stable - Off statin since 05/03 - Hepatitis C Ab Reactive - Pending genotyping and viral load for Hepatitis C - Patient reports he has not had treatment before - Patient does have tattoos on his body unclear when he has received them - Abd US (05/08): hepatic steatosis without focal abnormality Hypertension, well-controlled - 05/25 - / - Vitals Q4H - Continue HTN meds: - Idosorbide mononitrate 20mg PO daily - Lisinopril 40mg PO QDaily - Amlodipine 10mg PO QDaily - Secondary HTN workup: - Renal artery duplex 04/05/2018: RIGHT: Findings suggestive of hemodynamically significant stenosis of the right renal artery, proximal segment. LEFT: No definite hemodynamically significant stenosis involving the renal arteries as visualized. Diastolic CHF (HFpEF), chronic - Cardiology, Dr. Dobbs consulted - Continue current regimen for BP control - norvasc 10 PO daily, lisinopril 40 PO daily - No additional echo indicated on this admission as patient is not showing symptoms of heart failure - ProBNP: 29,300- increased from previous admissions - Previous Echo (08/2017): LV normal size, borderline LV hypertrophy, Systolic function borderline, mild septal hypokinesis, LVEF >50% - No beta jessica given side effect of bronchospasm - Holding Crestor 5mg PO daily due to LFTs - Aspirin 81mg PO daily Alcohol use disorder, chronic - Completed Ativan taper. - Serum alcohol level: < 10 - UDS: Negative - Vitamin B12: 511m Folate levels: > 20 - Ammonia wnl - cont Thiamine, folic acid, multivitamin Lower extremity swelling, resolved - Consulted with podiatry during hospitalization - No evidence of cellulitis, lower extremities show blanchable erythema - Completed IV abx to cover for cellulitis and pneumonia - Foot Xray (04/03): Degenerative changes of the forefoot. No acute fractures, subluxations. B/l hammertoe deformities are identified diffusely. Severe hallux valgus deformity noted. Large plantar calcaneal spurs b/l. Atelectasis, resolved - Completed IV abx to cover for pneumonia - Legionella, s. pneumonia, influenza: Negative, Mycoplasma Ig.19 (normal: < 0.9), Mycoplasma IgM: negative - CXR (04/04): Limited patchy atelectasis medial right base with remaining lung liu clear. Stable prominent cardiac silhouette. - CT chest (04/04): Small to medium size right-sided effusion and mild right basilar atelectasis. Small opacities are also present within the middle lobe possibly representing rounded atelectasis and/or infiltrates. There also appears to be some mild dependent atelectasis in the left lung base. Trace right-sided effusion. Minimal linear scarring changes left lingular region. Suspect mild underlying pulmonary venous congestive changes. There also appears to be a few scattered parenchymal calcifications likely representing granulomata within both lower lung liu as well. Cardiomegaly. - CXR PA/Lateral (04/09): Mild bibasilar atelectasis and/or infiltrate changes seen in the right mid to lower lung field with suspected mild left basilar atelectais Scabies, resolved - Completed 2 doses of Permethrin during hospitalization - Vitamin A and D TOP BID for dry skin hx of COPD - resolved previous COPD exarcerbation - Pulmonology, Dr. Lebron consulted - Patient is stable, O2 % saturation: 95-100% on room air Acute kidney injury, resolved - 05/24: BUN/cr - 54/0.1 - Nephrology, Dr. Lizarraga consulted - Avoid nephrotoxic agents (NSAIDS, phosphate enema) - Renal artery duplex - possible significant GLADIS - see above - Renal ultrasound (04/05): non-obstructive left nephrolithiasis. Otherwise normal ultrasound Ppx: VTE: Lovenox 40 mg SC daily GI: not indicated Code status: full code Dispo: Patient medicaid application is in progress with [employer]. Patient is for terminal block assembler care at Nursing facility once financial coverage is obtained. Labs obtained every 7 days, next lab on 05/28 <Ryland Pearson - Last Filed: 06/06/18 02:43> Objective - Vital Signs/Intake and Output Vital Signs (last 24 hours): Temp Pulse Resp BP Pulse Ox 97.6 F 78 20 115/74 96 06/06/18 00:00 06/06/18 00:00 06/06/18 00:00 06/06/18 00:00 06/06/18 00:00 Intake and Output: 06/05/18 06/06/18 18:59 06:59 Intake Total 250 Balance 250 - Medications Medications: Current Medications Amlodipine Besylate (Norvasc) 10 mg PO DAILY [facility] Last Admin: 06/05/18 09:43 Dose: 10 mg Aspirin (Ecotrin) 81 mg PO DAILY [facility] Last Admin: 06/05/18 09:43 Dose: 81 mg Folic Acid (Folic Acid) 1 mg PO DAILY [facility] Last Admin: 06/05/18 09:43 Dose: 1 mg Isosorbide Mononitrate (Ismo) 20 mg PO Q24H [facility] Last Admin: 06/05/18 11:27 Dose: 20 mg Lisinopril (Zestril) 40 mg PO Q24H [facility] Last Admin: 06/05/18 11:27 Dose: 40 mg Multivitamins (Hexavitamin) 1 tab PO DAILY [facility] Last Admin: 06/05/18 09:43 Dose: 1 tab Thiamine HCl (Vitamin B1 Tab) 100 mg PO DAILY [facility] Last Admin: 06/05/18 09:43 Dose: 100 mg Vitamin A (Vitamin A & D Oint Ud Foilpak) 1 ea TOP BID [facility] Last Admin: 06/05/18 17:56 Dose: 1 ea - Labs Labs: 06/04/18 06:58 06/04/18 06:58 PT 16.4 SECONDS (9.7-12.2) H 04/06/18 07:35 INR 1.5 04/06/18 07:35 APTT 28 SECONDS (21-34) 04/06/18 07:35 Attending/Attestation - Attestation I have personally seen and examined this patient.: Yes I have fully participated in the care of the patient.: Yes I have reviewed all pertinent clinical information, including history, physical exam and plan: Yes Notes (Text): 06/06/18 02:43 This is a late entry. Care of this patient was gone over with resident Dr. Otf Pathak. Ryland Pearson D.O.
[2018-06-04 08:08] LABS: ALB/GLOB RATIO 1.1 (1.0-2.1); ALBUMIN 3.8 g/dL (3.5-5.0); ALT/SGPT 167 U/L (21-72); AST/SGOT 84 U/L (17-59); BLOOD UREA NITROGEN 40 mg/dL (9-20); CALCIUM 9.2 mg/dl (8.6-10.4); GFR NON-AFRICAN AMERICAN > 60
[2018-06-04] MEDS: Multiple Vitamins Tab PO SCH (11:00)
[2018-06-04] MEDS: Vitamins A & D Oint UD Foilpak TOP SCH ×2 (11:00→17:55)
[2018-06-05] MEDS: Vitamins A & D Oint UD Foilpak TOP SCH ×2 (09:43→17:56)
[2018-06-05] MEDS: Multiple Vitamins Tab PO SCH (09:43)
--- NOTE | 2018-06-06 02:40 | CP.PCM.PCO ---
Physician Communication Note - Physician Communication Note Physician Communication Note: Please see above
[2018-06-06] MEDS: Vitamins A & D Oint UD Foilpak TOP SCH ×2 (09:54→18:51)
[2018-06-06] MEDS: Multiple Vitamins Tab PO SCH (09:55)
--- NOTE | 2018-06-06 12:58 | CP.PCM.PN ---
<Nadira Cristinaberly Y - Last Filed: 06/06/18 18:05> Subjective - Date & Time of Evaluation Date of Evaluation: 06/06/18 Time of Evaluation: 11:00 - Subjective Subjective: PGY-1 Medicine Progress Note for Dr. Richey Patient was seen and examined today at bedside in no acute distress. Nurse reports no overnight events. Patient has no new complaints. He expresses annoyance at all the people coming and going from the room to check on his new roommate. Denies chest pain, shortness of breath, abdominal pain, headache, nausea, vomiting, constipation, diarrhea. Objective - Vital Signs/Intake and Output Vital Signs (last 24 hours): Temp Pulse Resp BP Pulse Ox 98.7 F 79 20 136/85 96 06/06/18 08:00 06/06/18 08:00 06/06/18 08:00 06/06/18 08:00 06/06/18 08:00 Intake and Output: 06/06/18 06/06/18 06:59 18:59 Intake Total 490 Balance 490 - Medications Medications: Current Medications Amlodipine Besylate (Norvasc) 10 mg PO DAILY [facility] Last Admin: 06/06/18 09:54 Dose: 10 mg Aspirin (Ecotrin) 81 mg PO DAILY [facility] Last Admin: 06/06/18 09:55 Dose: 81 mg Folic Acid (Folic Acid) 1 mg PO DAILY [facility] Last Admin: 06/06/18 09:54 Dose: 1 mg Isosorbide Mononitrate (Ismo) 20 mg PO Q24H [facility] Last Admin: 06/05/18 11:27 Dose: 20 mg Lisinopril (Zestril) 40 mg PO Q24H [facility] Last Admin: 06/05/18 11:27 Dose: 40 mg Multivitamins (Hexavitamin) 1 tab PO DAILY [facility] Last Admin: 06/06/18 09:55 Dose: 1 tab Thiamine HCl (Vitamin B1 Tab) 100 mg PO DAILY [facility] Last Admin: 06/06/18 09:54 Dose: 100 mg Vitamin A (Vitamin A & D Oint Ud Foilpak) 1 ea TOP BID [facility] Last Admin: 06/06/18 09:54 Dose: 1 ea - Labs Labs: 06/04/18 06:58 06/04/18 06:58 PT 16.4 SECONDS (9.7-12.2) H 04/06/18 07:35 INR 1.5 04/06/18 07:35 APTT 28 SECONDS (21-34) 04/06/18 07:35 - Constitutional Appears: Well, No Acute Distress - Head Exam Head Exam: ATRAUMATIC, NORMOCEPHALIC - Eye Exam Eye Exam: EOMI, Normal appearance - ENT Exam ENT Exam: Mucous Membranes Moist - Respiratory Exam Respiratory Exam: Clear to Ausculation Bilateral, NORMAL BREATHING PATTERN. absent: Rales, Rhonchi, Wheezes - Cardiovascular Exam Cardiovascular Exam: REGULAR RHYTHM, +S1, +S2. absent: Gallop, Rubs, Murmur - GI/Abdominal Exam GI & Abdominal Exam: Soft, Normal Bowel Sounds. absent: Firm, Guarding, Tenderness - Extremities Exam Extremities Exam: Normal Capillary Refill. absent: Calf Tenderness Additional comments: palpable peripheral pulses bilaterally (radial, DP) - Neurological Exam Neurological Exam: Alert, Awake, Oriented x3 - Psychiatric Exam Psychiatric exam: Flat Affect Additional comments: AVASYS - Skin Skin Exam: Normal Color, Warm Assessment and Plan - Assessment and Plan (Free Text) Plan: Deconditioning - PT- rec LINDSAY; rolling walker, supervision x 300 feet - Per case management, patient will not be accepted to a homeless jail without ability to ambulate independently without a walker - SW submitted Medicaid application - CT head (04/04): Chronic microvascular ischemic changes. 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 B/l basal ganglia and R thalamic lacunar infarcts. Focal encephalomalacia in the R duenas radiata. Transaminitis, stable - AST/ALT: 126/226 - remain stable - Off statin since 05/03 - Hepatitis C Ab Reactive - Pending genotyping and viral load for Hepatitis C - Patient reports he has not had treatment before - Patient does have tattoos on his body unclear when he has received them - Abd US (05/08): hepatic steatosis without focal abnormality Hypertension, well-controlled - 05/25 - 102/67 - Vitals Q4H - Continue HTN meds: - Idosorbide mononitrate 20mg PO daily - Lisinopril 40mg PO QDaily - Amlodipine 10mg PO QDaily - Secondary HTN workup: - Renal artery duplex 04/05/2018: RIGHT: Findings suggestive of hem odynamically significant stenosis of the right renal artery, proximal segment. LEFT: No definite hemodynamically significant stenosis involving the renal arteries as visualized. Diastolic CHF (HFpEF), chronic - Cardiology, Dr. Dobbs consulted - Continue current regimen for BP control - norvasc 10 PO daily, lisinopril 40 PO daily - No additional echo indicated on this admission as patient is not showing symptoms of heart failure - ProBNP: 29,300- increased from previous admissions - Previous Echo (08/2017): LV normal size, borderline LV hypertrophy, Systolic function borderline, mild septal hypokinesis, LVEF >50% - No beta jessica given side effect of bronchospasm - Holding Crestor 5mg PO daily due to LFTs - Aspirin 81mg PO daily Alcohol use disorder, chronic - Completed Ativan taper. - Serum alcohol level: < 10 - UDS: Negative - Vitamin B12: 511m Folate levels: > 20 - Ammonia wnl - cont Thiamine, folic acid, multivitamin Lower extremity swelling, resolved - Consulted with podiatry during hospitalization - No evidence of cellulitis, lower extremities show blanchable erythema - Completed IV abx to cover for cellulitis and pneumonia - Foot Xray (04/03): Degenerative changes of the forefoot. No acute fractures, subluxations. B/l hammertoe deformities are identified diffusely. Severe hallux valgus deformity noted. Large plantar calcaneal spurs b/l. Atelectasis, resolved - Completed IV abx to cover for pneumonia - Legionella, s. pneumonia, influenza: Negative, Mycoplasma Ig.19 (normal: < 0.9), Mycoplasma IgM: negative - CXR (04/04): Limited patchy atelectasis medial right base with remaining lung liu clear. Stable prominent cardiac silhouette. - CT chest (04/04): Small to medium size right-sided effusion and mild right basilar atelectasis. Small opacities are also present within the middle lobe possibly representing rounded atelectasis and/or infiltrates. There also appears to be some mild dependent atelectasis in the left lung base. Trace right-sided effusion. Minimal linear scarring changes left lingular region. Suspect mild underlying pulmonary venous congestive changes. There also appears to be a few scattered parenchymal calcifications likely representing granulomata within both lower lung ilu as well. Cardiomegaly. - CXR PA/Lateral (04/09): Mild bibasilar atelectasis and/or infiltrate changes seen in the right mid to lower lung field with suspected mild left basilar atelectais Scabies, resolved - Completed 2 doses of Permethrin during hospitalization - Vitamin A and D TOP BID for dry skin COPD, chronic - resolved previous COPD exarcerbation - Pulmonology, Dr. Lebron consulted - Patient is stable, O2 % saturation: 95-100% on room air Acute kidney injury, resolved - 05/24: BUN/cr - 54/0.1 - Nephrology, Dr. Lizarraga consulted - Avoid nephrotoxic agents (NSAIDS, phosphate enema) - Renal artery duplex - possible significant GLADIS - see above - Renal ultrasound (04/05): non-obstructive left nephrolithiasis. Otherwise normal ultrasound Ppx: VTE: Lovenox 40 mg SC daily GI: not indicated Diet: HHD Code status: full code Dispo: Patient Medicaid application is in progress with [employer]. Patient is for LTAC once financial coverage is obtained. Labs obtained every 7 days on Mondays. d/w Dr. Kaiden Cristina PGY-1 <Dominique Richey V - Last Filed: 06/06/18 21:21> Objective - Vital Signs/Intake and Output Vital Signs (last 24 hours): Temp Pulse Resp BP Pulse Ox 97.7 F 84 20 114/76 96 06/06/18 16:00 06/06/18 16:00 06/06/18 16:00 06/06/18 16:00 06/06/18 16:00 - Medications Medications: Current Medications Amlodipine Besylate (Norvasc) 10 mg PO DAILY [facility] Last Admin: 06/06/18 09:54 Dose: 10 mg Aspirin (Ecotrin) 81 mg PO DAILY [facility] Last Admin: 06/06/18 09:55 Dose: 81 mg Enoxaparin Sodium (Lovenox) 40 mg SC DAILY [facility] Folic Acid (Folic Acid) 1 mg PO DAILY [facility] Last Admin: 06/06/18 09:54 Dose: 1 mg Isosorbide Mononitrate (Ismo) 20 mg PO Q24H [facility] Last Admin: 06/05/18 11:27 Dose: 20 mg Lisinopril (Zestril) 40 mg PO Q24H [facility] Last Admin: 01/02/19 11:55 Dose: 40 mg Multivitamins (Hexavitamin) 1 tab PO DAILY [facility] Last Admin: 06/06/18 09:55 Dose: 1 tab Thiamine HCl (Vitamin B1 Tab) 100 mg PO DAILY [facility] Last Admin: 06/06/18 09:54 Dose: 100 mg Vitamin A (Vitamin A & D Oint Ud Foilpak) 1 ea TOP BID [facility] Last Admin: 06/06/18 18:51 Dose: 1 ea - Labs Labs: 06/04/18 06:58 06/04/18 06:58 PT 16.4 SECONDS (9.7-12.2) H 04/06/18 07:35 INR 1.5 04/06/18 07:35 APTT 28 SECONDS (21-34) 04/06/18 07:35 Attending/Attestation - Attestation I have personally seen and examined this patient.: Yes I have fully participated in the care of the patient.: Yes I have reviewed all pertinent clinical information, including history, physical exam and plan: Yes Notes (Text): This is a 58-year-old male initially admitted on April 04 with a known past medical history including hypertension, diastolic heart failure, a prior history of stroke, alcoholism, smoking history acute conditions have been stabilized is awaiting placement. I spoken with case and social today patient no longer has an active Medicare number reports that he would likely need medication to get back his Medicare that this will take some time to set patient up for a long- term care facility or halfway. Patient was last evaluated by physical therapy on June 04 continue to note subacute rehab eval in the treatment plan. Patient noted to have blood work once a week he has mild transaminitis which has been improving. Patient does have hepatitis C reactive antibody genotyping shows 1a there is not noted resistance to common hepatitis C treatments. Patient has a cognitive delay is open to treatment for hepatitis C when he is discharged.
[2018-06-07 08:01] LABS: ALB/GLOB RATIO 1.1 (1.0-2.1); ALBUMIN 3.7 g/dL (3.5-5.0); ALT/SGPT 150 U/L (21-72); AST/SGOT 77 U/L (17-59); BLOOD UREA NITROGEN 37 mg/dL (9-20); CALCIUM 9.3 mg/dl (8.6-10.4); GFR NON-AFRICAN AMERICAN > 60
[2018-06-07] MEDS: Multiple Vitamins Tab PO SCH (09:33)
[2018-06-07] MEDS: Enoxaparin 40 mg Syringe SC SCH (09:33)
[2018-06-07] MEDS: Vitamins A & D Oint UD Foilpak TOP SCH ×2 (09:33→18:15)
[2018-06-08 08:18] VITALS: RESP 20
[2018-06-08] MEDS: Multiple Vitamins Tab PO SCH (11:16)
[2018-06-08] MEDS: Enoxaparin 40 mg Syringe SC SCH (11:17)
[2018-06-08] MEDS: Vitamins A & D Oint UD Foilpak TOP SCH ×2 (11:18→17:03)
--- NOTE | 2018-06-08 11:50 | CP.PCM.DIS ---
Provider - Provider Date of Admission: 04/04/18 00:46 Attending physician: Ryland Pearson MD Consults: 04/04/18 04:27 Podiatry Consult Routine Comment: Consulting Provider: Priti Gomez Consulting Physician: Priti Gomez Reason for Consult: infective callous 04/04/18 20:50 Cardiology Consult Routine Comment: Consulting Provider: Dilip Dobbs Consulting Physician: Dilip Dobbs Reason for Consult: HFpEF Exacerbation 04/04/18 20:56 Nephrology Consult Routine Comment: Consulting Provider: Eliseo Lizarraga Consulting Physician: Eliseo Lizarraga Reason for Consult: Elevated BUN/Cr 04/05/18 08:17 Pulmonology Consult Routine Comment: Consulting Provider: Pantera Lebron Consulting Physician: Pantera Lebron Reason for Consult: Possible COPD Exacerbation. Hx Smoking 04/20/18 11:36 Psychiatry Consult Routine Comment: Consulting Provider: Erlin Ibarra Consulting Physician: Erlin Ibarra Reason for Consult: Please evaluate mental capacity for social/medical decisions 04/22/18 15:28 Podiatry Consult Routine Comment: Consulting Provider: Priti Gomez Consulting Physician: Priti Gomez Reason for Consult: ingrown toenail, dermatitis of feet Time Spent in preparation of Discharge (in minutes): 180 Diagnosis - Discharge Diagnosis (1) Physical deconditioning Status: Chronic (2) History of alcohol abuse Status: Chronic (3) Altered mental state Status: Acute (4) COPD (chronic obstructive pulmonary disease) Status: Chronic (5) Hypertensive urgency Status: Acute (6) HTN (hypertension) Status: Chronic Priority: High (7) Leg pain Status: Acute (8) Acute kidney injury Status: Resolved (9) DVT prophylaxis Status: Acute Hospital Course - Lab Results Lab Results: Micro Results 04/03/18 19:17 Blood Blood Culture - Final NO GROWTH AFTER 5 DAYS 04/03/18 19:17 Blood Gram Stain - Final TEST NOT PERFORMED 04/03/18 18:40 Blood Blood Culture - Final NO GROWTH AFTER 5 DAYS 04/03/18 18:40 Blood Gram Stain - Final TEST NOT PERFORMED Most Recent Lab Values WBC 7.2 K/uL (4.8-10.8) D 06/04/18 06:58 RBC 4.45 Mil/uL (4.40-5.90) 06/04/18 06:58 Hgb 12.8 g/dL (12.0-18.0) 06/04/18 06:58 Hct 39.0 % (35.0-51.0) 06/04/18 06:58 MCV 87.5 fL (80.0-94.0) 06/04/18 06:58 MCH 28.8 pg (27.0-31.0) 06/04/18 06:58 MCHC 32.9 g/dL (33.0-37.0) L 06/04/18 06:58 RDW 16.0 % (11.5-14.5) H 06/04/18 06:58 Plt Count 153 K/uL (130-400) 06/04/18 06:58 MPV 8.4 fL (7.2-11.7) 06/04/18 06:58 Neut % (Auto) 58.6 % (50.0-75.0) 05/04/18 11:21 Lymph % (Auto) 22.4 % (20.0-40.0) 05/04/18 11:21 Arroyo % (Auto) 15.8 % (0.0-10.0) H 05/04/18 11:21 Eos % (Auto) 2.7 % (0.0-4.0) 05/04/18 11:21 Baso % (Auto) 0.5 % (0.0-2.0) 05/04/18 11:21 Neut # (Auto) 3.5 K/uL (1.8-7.0) 05/04/18 11:21 Lymph # (Auto) 1.3 K/uL (1.0-4.3) 05/04/18 11:21 Arroyo # (Auto) 0.9 K/uL (0.0-0.8) H 05/04/18 11:21 Eos # (Auto) 0.2 K/uL (0.0-0.7) 05/04/18 11:21 Baso # (Auto) 0.0 K/uL (0.0-0.2) 05/04/18 11:21 Neutrophils % (Manual) 71 % (50-75) 04/08/18 07:28 Band Neutrophils % 1 % (0-2) 04/07/18 06:18 Lymphocytes % (Manual) 8 % (20-40) L 04/08/18 07:28 Reactive Lymphs % 1 % (0-0) H 04/04/18 08:06 Monocytes % (Manual) 14 % (0-10) H 04/08/18 07:28 Eosinophils % (Manual) 6 % (0-4) H 04/08/18 07:28 Metamyelocytes % 1 % (0-0) H 04/08/18 07:28 Differential Comment 05/21/18 06:32 Toxic Granulation Present 04/08/18 07:28 Platelet Estimate Markedly increased (NORMAL) H 04/08/18 07:28 Large Platelets Present 04/08/18 07:28 Polychromasia Slight 04/08/18 07:28 Hypochromasia (manual) Slight 04/08/18 07:28 Poikilocytosis (manual Slight 04/04/18 08:06 Anisocytosis (manual) Moderate 04/08/18 07:28 Microcytosis (manual) Slight 04/04/18 08:06 Macrocytosis (manual) Slight 04/08/18 07:28 Tear Drop Cells Slight 04/04/18 08:06 PT 16.4 SECONDS (9.7-12.2) H 04/06/18 07:35 INR 1.5 04/06/18 07:35 APTT 28 SECONDS (21-34) 04/06/18 07:35 Puncture Site Rr 04/04/18 05:10 pCO2 22 mm/Hg (35-45) L 04/04/18 05:10 pO2 96 mm/Hg (80-100) 04/04/18 05:10 HCO3 20.6 mmol/L (21-28) L 04/04/18 05:10 ABG pH 7.48 (7.35-7.45) H 04/04/18 05:10 ABG Total CO2 17.1 mmol/L (22-28) L 04/04/18 05:10 ABG O2 Saturation 99.2 % (95-98) H 04/04/18 05:10 ABG Base Excess -5.5 mmol/L (-2.0-3.0) L 04/04/18 05:10 ABG Hemoglobin 11.1 g/dL (11.7-17.4) L 04/04/18 05:10 ABG Carboxyhemoglobin 2.8 % (0.5-1.5) H 04/04/18 05:10 POC ABG HHb (Measured) 0.8 % (0.0-5.0) 04/04/18 05:10 ABG Methemoglobin 1.1 % (0.0-3.0) 04/04/18 05:10 Shree Test Pos 04/04/18 05:10 A-a O2 Difference 26.0 mm/Hg 04/04/18 05:10 Respiratory Index 0.3 04/04/18 05:10 Hgb O2 Saturation 95.4 % (95.0-98.0) 04/04/18 05:10 Vent Mode Room air 04/04/18 05:10 FiO2 21.0 % 04/04/18 05:10 Sodium 133 mmol/L (132-148) 06/07/18 07:36 Potassium 4.2 mmol/L (3.6-5.2) 06/07/18 07:36 Chloride 98 mmol/L (98-107) 06/07/18 07:36 Carbon Dioxide 27 mmol/L (22-30) 06/07/18 07:36 Anion Gap 12 (10-20) 06/07/18 07:36 BUN 37 mg/dL (9-20) H 06/07/18 07:36 Creatinine 0.9 mg/dL (0.8-1.5) 06/07/18 07:36 Est GFR ( Amer) > 60 06/07/18 07:36 Est GFR (Non-Af Amer) > 60 06/07/18 07:36 POC Glucose (mg/dL) 146 mg/dL (65-110) H 05/10/18 11:24 Random Glucose 90 mg/dL (75-110) 06/07/18 07:36 Hemoglobin A1c 4.8 % (4.2-6.5) 04/05/18 06:57 Calcium 9.3 mg/dl (8.6-10.4) 06/07/18 07:36 Phosphorus 3.9 mg/dL (2.5-4.5) 06/04/18 06:58 Magnesium 1.8 mg/dL (1.6-2.3) 06/04/18 06:58 Total Bilirubin 0.5 mg/dL (0.2-1.3) 06/07/18 07:36 AST 77 U/L (17-59) H 06/07/18 07:36 ALT 150 U/L (21-72) H 06/07/18 07:36 Alkaline Phosphatase 83 U/L (38-126) 06/07/18 07:36 Ammonia < 9 umol/L (9-33) L 04/11/18 13:57 NT-Pro-B Natriuret Pep 131 pg/mL (0-900) 04/27/18 08:17 Total Protein 7.3 g/dL (6.3-8.3) 06/07/18 07:36 Albumin 3.7 g/dL (3.5-5.0) 06/07/18 07:36 Globulin 3.5 gm/dL (2.2-3.9) 06/07/18 07:36 Albumin/Globulin Ratio 1.1 (1.0-2.1) 06/07/18 07:36 Triglycerides 122 mg/dL (0-149) 04/05/18 06:57 Cholesterol 119 mg/dL (0-199) 04/05/18 06:57 LDL Cholesterol Direct 81 mg/dL (0-129) 04/05/18 06:57 HDL Cholesterol 21 mg/dL (30-70) L 04/05/18 06:57 Renin 12.25 ng/mL/h (0.25-5.82) H 04/06/18 19:39 Aldosterone <1 ng/dL 04/06/18 19:39 Aldosterone/Renin Ratio See note Ratio (0.9-28.9) 04/06/18 19:39 Vitamin B12 511 pg/mL (239-931) 04/05/18 06:57 Folate > 20.0 ng/mL 04/05/18 06:57 Free T4 1.77 ng/dL (0.78-2.19) 04/05/18 06:57 TSH 3rd Generation 3.00 mIU/L (0.46-4.68) 04/05/18 06:57 Plasma Metanephrine 29 pg/mL (<=57) 04/06/18 19:39 Plasma Normetanephrine 228 pg/mL (<=148) H 04/06/18 19:39 Plas Total Metaneph 257 pg/mL (<=205) H 04/06/18 19:39 Urine Color Straw (YELLOW) 04/05/18 14:47 Urine Clarity Clear (Clear) 04/05/18 14:47 Urine pH 6.0 (5.0-8.0) 04/05/18 14:47 Ur Specific [place] 1.008 (1.003-1.030) 04/05/18 14:47 Urine Protein Negative mg/dL (NEGATIVE) 04/05/18 14:47 Urine Glucose (UA) Normal mg/dL (Normal) 04/05/18 14:47 Urine Ketones Negative mg/dL (NEGATIVE) 04/05/18 14:47 Urine Blood Negative (NEGATIVE) 04/05/18 14:47 Urine Nitrate Negative (NEGATIVE) 04/05/18 14:47 Urine Bilirubin Negative (NEGATIVE) 04/05/18 14:47 Urine Urobilinogen Normal mg/dL (0.2-1.0) 04/05/18 14:47 Ur Leukocyte Esterase Neg [place]/uL (Negative) 04/05/18 14:47 Urine WBC (Auto) 2 /hpf (0-5) 04/05/18 14:47 Urine RBC (Auto) < 1 /hpf (0-3) 04/05/18 14:47 Ur Squamous Epith Cells 1 /hpf (0-5) 04/05/18 14:47 Ur Random Creatinine 15.2 mg/dL 04/05/18 14:47 U Random Total Protein 353 mg/g creat (22-128) H 04/05/18 14:47 Ur Random Sodium 128 mmol/L 04/05/18 14:47 Ur Random Urea Nitrogn 352 mg/dL 04/05/18 14:47 Urine Creatinine 17 mg/dL (20-320) L 04/05/18 14:47 Urine Microalbumin 0.8 mg/dL 04/05/18 14:47 Microalb/Creat Ratio 49 (<30) H 04/05/18 14:47 Urine Opiates Screen Negative (NEGATIVE) 04/04/18 09:12 Urine Methadone Screen Negative (NEGATIVE) 04/04/18 09:12 Ur Barbiturates Screen Negative (NEGATIVE) 04/04/18 09:12 Ur Phencyclidine Scrn Negative (NEGATIVE) 04/04/18 09:12 Ur Amphetamines Screen Negative (NEGATIVE) 04/04/18 09:12 U Benzodiazepines Scrn Negative (NEGATIVE) 04/04/18 09:12 U Oth Cocaine Metabols Negative (NEGATIVE) 04/04/18 09:12 U Cannabinoids Screen Negative (NEGATIVE) 04/04/18 09:12 Alcohol, Quantitative < 10 mg/dl (0-10) 04/04/18 16:50 Hepatitis A IgM Ab Negative (NEGATIVE) 05/09/18 08:13 Hep Bs Antigen Negative (NEGATIVE) 05/09/18 08:13 Hep B Core IgM Ab Negative (NEGATIVE) 05/09/18 08:13 Hepatitis C Antibody Reactive (Non Reactive) H 05/10/18 10:48 Hep C Ab Signal/Cutoff 31.4 (<1.0) H 05/10/18 10:48 HCV NS3/4A 1a 05/23/18 14:14 HCV Grazoprevir Resis Not predicted 05/23/18 14:14 HCV Paritaprevir Resis Not predicted 05/23/18 14:14 HCV Simeprevir Resis Not predicted 05/23/18 14:14 Influenza Typ A,B (EIA) Negative for flu a/b (NEGATIVE) 04/04/18 22:42 Ur L.pneumophila Ag Negative (NEGATIVE) 04/04/18 20:29 Mycoplasma pneumon IgG 2.19 (<=0.90) H 04/04/18 07:46 Mycoplasma pneumon IgM 127 U/mL (<770) 04/04/18 07:46 S. 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 Patient is a poor historian and was not able to verbalize full sentences to obtain full H&P. Patient states he fell down earlier outside while walking and has foot pain. Unable to obtain ROS due to patient cooperation and medical condition. 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 UDS: Negative. CT head shows age-appropriate cerebellar & cerebral atrophy, moderate chronic micovascular disease, left occipital chronic ischemic territory the posterior cerebral artery, no evidence of acute intracranial pathology patient appears to be fluid depleted in extravascular space, while remaining fluid full in intravascular region. Ativan taper completed. given Thiamine, folic acid, multivitamin. Due to foot pain, leg cellulitis was suspected. Foot Xray (04/03): Degenerative changes of the forefoot. No acute fractures, subluxations. B/l hammertoe deformities are identified diffusely. Severe hallux valgus deformity noted. Large plantar calcaneal spurs b/l. Podiatry on the case. IV abx started - Doxycycline 100 mg IV Q12H started on 04/04. Ceftriaxone 1mg IV Q24H. Patient had HTN emergency at admission, BP 208/129, given [id number] mg TID, Imdur 20mg PO daily, patient was kept of several HTN medications(please refer to EMR for more information regarding medication management of HTN). CT chest shows interstitial pulmonary edema, decompensated congestive heart failure, multifocial bronchopneumonia predominate in bases, cardiomegaly. Mycoplasma Ig.19 (normal: < 0.9), Mycoplasma IgM: negative. For suspected pneumonia management was initiated with doxycycline 100 mg IV Q12H and Ceftriaxone 1mg IV Q24H. previous Echo on 08/2017 shows LV normal size, borderline LV hypertrophy, Systolic function borderline, mild septal hypokinesis. For hx of COPD patient was ordered Duoneb Q6 PRN and Atrovent INH Q6 PRN. Patient presented with Scabies. 2 doses Permethrin 5% TOP. For hepatitis panel, hepatitis c ab pos, confirmatory serology pending, Abd US shows Hepatic Steatosis, no fibrosis, cholelithiasis, kidneys unremarkable. Patient was observed to be deconditioning, without steady gait, using walker. Per case management, patient will not be accepted to a homeless [facility] without ability to ambulate independently without a walker. SW submitted application for medicaid. Patient was medically stable, awaiting medicaid application and LTC placement. PT on the case recommended [facility] and to continue walking with rolling walker and supervision x 300 feet. DVT prophylaxis with lovenox 40mg SC daily. On Discharge Patient is stable to be discharge to [facility] in the [place], [place]. Patient is to continue taking all the medications patient has been taking during hospital stay, please see reconciliation med list. Patient must follow as outpatient with clinic to continue treatment and management of hepatitis. If symptoms worsen or recur, patient can return to the ER immediately This is a summary of patient's hospitalization course. For more information, please refer to patient's EMR. - Date & Time of H&P Date of H&P: 04/04/18 Time of H&P: 03:05 Discharge Exam - Head Exam Head Exam: ATRAUMATIC, NORMAL INSPECTION, NORMOCEPHALIC - Eye Exam Eye Exam: EOMI, Normal appearance - ENT Exam ENT Exam: Normal Exam - Neck Exam Neck exam: Full Rom, Normal Inspection - Respiratory Exam Respiratory Exam: Clear to PA & Lateral, NORMAL BREATHING PATTERN, UNREMARKABLE. absent: Rhonchi, Wheezes, Respiratory Distress - Cardiovascular Exam Cardiovascular Exam: REGULAR RHYTHM, +S1, +S2 - GI/Abdominal Exam GI & Abdominal Exam: Normal Bowel Sounds, Unremarkable - Extremities Exam Extremities exam: pedal pulses present - Back Exam Back exam: NORMAL INSPECTION - Neurological Exam Neurological exam: Alert, CN II-XII Intact, Oriented x3 - Psychiatric Exam Psychiatric exam: Depressed, Flat Affect - Skin Skin Exam: Dry, Intact, Normal Color, Warm Discharge Plan - Follow Up Plan Condition: FAIR Disposition: REHAB FACILITY/REHAB UNIT Instructions: High Blood Pressure (DC), Pneumonia, Adult (DC) Additional Instructions: Patient is stable to be discharge to [facility] in the [place], [place] Patient is to continue taking all the medications patient has been taking during hospital stay, please see reconciliation med list Patient must follow as outpatient with clinic to continue treatment and management of hepatitis If symptoms worsen or recur, patient can return to the ER immediately
[2018-06-08] MEDS ORDERED: Influenza Vaccine 60 MCG/0.5 ML SYR (3 yr & up) IM ONE (13:55)
[2018-06-08] MEDS ORDERED: Pneumococcal 23-Valent Vaccine IM ONE (13:55)
[2018-06-08 15:46] VITALS: BP 111/73; PULSE 83; TEMP 98; O2SAT 98
== END 2018-06-08 20:05 | DRG 199 ==
LOC: C.ER 17:10 → C.5S 04-04 00:46 → C.3T 04-14 17:14
PROVIDERS: ADMIT Family Medicine; ATTEND Family Medicine
PROC: HZ56ZZZ Individual Psychotherapy for Substance Abuse Treatment, Psychoeducation (ICD-10-PCS; principal; 2018-04-23)
PROC: HZ59ZZZ Individual Psychotherapy for Substance Abuse Treatment, Supportive (ICD-10-PCS; 2018-04-23)
PROC: HZ46ZZZ Group Counseling for Substance Abuse Treatment, Psychoeducation (ICD-10-PCS; 2018-04-23)
PROC: HZ2ZZZZ Detoxification Services for Substance Abuse Treatment (ICD-10-PCS; 2018-04-23)
DX: I16.1 Hypertensive emergency (principal); I50.33 Acute on chronic diastolic (congestive) heart failure; J18.9 Pneumonia, unspecified organism; N17.9 Acute kidney failure, unspecified; F03.90 Unspecified dementia, unspecified severity, without behavioral disturbance, psychotic disturbance, mood disturbance, and anxiety; J44.0 Chronic obstructive pulmonary disease with (acute) lower respiratory infection; E86.0 Dehydration; B86 Scabies; F10.220 Alcohol dependence with intoxication, uncomplicated; I13.0 Hypertensive heart and chronic kidney disease with heart failure and stage 1 through stage 4 chronic kidney disease, or unspecified chronic kidney disease; I15.0 Renovascular hypertension; B19.20 Unspecified viral hepatitis C without hepatic coma; F10.230 Alcohol dependence with withdrawal, uncomplicated; Y90.0 Blood alcohol level of less than 20 mg/100 ml; Z59.0 Homelessness; F17.210 Nicotine dependence, cigarettes, uncomplicated; J44.1 Chronic obstructive pulmonary disease with (acute) exacerbation; L03.116 Cellulitis of left lower limb; L03.115 Cellulitis of right lower limb; L29.9 Pruritus, unspecified; Z86.73 Personal history of transient ischemic attack (TIA), and cerebral infarction without residual deficits; N18.2 Chronic kidney disease, stage 2 (mild); L60.0 Ingrowing nail; L30.9 Dermatitis, unspecified; R41.82 Altered mental status, unspecified; M20.42 Other hammer toe(s) (acquired), left foot; M20.12 Hallux valgus (acquired), left foot; M20.11 Hallux valgus (acquired), right foot; M77.32 Calcaneal spur, left foot; M77.31 Calcaneal spur, right foot